=== PATIENT | male | born 1985 | race Caucasian/White ===

== ENCOUNTER 2020-11-15 18:54 | Emergency (ER) | payer OTHER, SELFPAY ==
--- NOTE | ~2020-11-15 | XR_ITS ---
EXAMINATION: XR ANKLE, LEFT CLINICAL INFORMATION: Swelling COMPARISON: None TECHNIQUE: AP, lateral, and mortise views of the left ankle. FINDINGS: No acute fracture or dislocation. Ankle mortise is congruent. No ankle joint effusion. There is lateral soft tissue swelling. XR/XR ankle LT min 3V IMPRESSION: Lateral soft tissue swelling. No fracture or malalignment.
[2020-11-15 18:56] VITALS: BP 136/86; PULSE 99; RESP 16; TEMP 37.1; O2SAT 98; BMI 19.2
[2020-11-15 20:36] VITALS: BP 115/71; PULSE 92; RESP 18; TEMP 37; O2SAT 96
[2020-11-15 20:40] LABS: MANUAL DIFF FLAG NO
[2020-11-15 20:45] LABS: Basophils Percent Auto 0.3 % (0-2); Eosinophils Absolute Auto 0.1 X10*3/uL (0.0-0.4); Eosinophils Percent Auto 1.9 % (0-4); Hemoglobin 12.8 g/dl (14.0-18.0); Imm Gran Abs Auto 0.02 X10*3/uL (0.00-0.03); Imm Gran Pct Auto 0.3 % (0.0-0.4); Lymphocytes Absolute Auto 1.5 X10*3/uL (1.2-4.9); Lymphocytes Percent Auto 23.5 % (20-40); Mean Corpuscular HGB Conc 33.7 g/dl (31.0-36.0); Mean Corpuscular Hemoglobin 30.6 pg (27.0-33.0); Mean Corpuscular Volume 90.9 fL (80-98); Monocytes Absolute Auto 0.7 X10*3/uL (0.1-1.2); Monocytes Percent Auto 10.7 % (2-11); Neutrophils Percent Auto 63.3 % (45-73); Red Blood Count 4.18 X10*6/uL (4.60-5.80); Red Cell Distribution Width 14.7 % (11.0-16.0); White Blood Count 6.4 X10*3/uL (4.8-10.8)
[2020-11-15 20:46] LABS: Platelet Count 90 X10*3/uL (160-400)
[2020-11-15 21:02] LABS: Anion Gap 11 (12-20); Blood Urea Nitrogen 8 mg/dL (9-16); Calcium 8.9 mg/dL (8.4-10.2); Carbon Dioxide 29 mmol/L (22-29); Chloride 106 mmol/L (96-108); Creatinine Clr Calc Pharmacy 100.4; Estimated Glomerular Filt Rate > 60; Glucose Random 101 mg/dL (60-115); Potassium 3.9 mmol/L (3.3-5.1); Sodium 142 mmol/L (135-145)
[2020-11-15] MEDS: Amoxicillin/Potassium Clav 875 MG TABLET PO (22:54)
--- NOTE | 2020-11-15 23:03 | ED_ITS ---
HPI - Extremity Injury (Lower) General Chief Complaint: Extremity Injury, Lower Stated Complaint: leg swelling Time Seen by Provider: 11/15/20 21:40 Source: patient Mode of arrival: ambulatory Limitations: no limitations History of Present Illness HPI Narrative: 35-year-old male presents with redness and swelling to the left lower ankle after being stung by a bee. 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 MD complaint: ankle injury Onset (ago): day(s) (To) Type of Injury: other (Insect sting) Place: street/outdoors Severity: moderate Severity scale (1-10): 7 Relieving factors: nothing Exacerbating factors: weight bearing, movement and palpation Associated symptoms: swelling Other symptoms: none Related Data Previous Rx's Medication Instructions Recorded amoxicillin 875 mg-potassium 1 tab PO Q12H 10 Days #20 tab 11/15/20 clavulanate 125 mg tablet (Augmentin) doxycycline monohydrate 100 mg 100 mg PO BID 10 Days #20 tab 11/15/20 tablet naproxen 500 mg tablet 500 mg PO BID PRN #60 tab 11/15/20 Allergies Allergy/AdvReac Type Severity Reaction Status Date / Time No Known Allergies Allergy Unverified 11/23/19 15:26 [No Known Allergies*] Review of Systems Review of Systems: Constitutional: No Fever, No Chills ENT/Mouth: No Ear Pain, No Hoarseness, No sore throat Eyes: No Eye Pain, No Swelling, No Redness, No Foreign Body Cardiovascular: No Chest Pain, No SOB Respiratory: No Cough, No Dyspnea Gastrointestinal: No Nausea, No Vomiting, No Diarrhea, No abdominal Pain Genitourinary: No Dysuria, No Hematuria Musculoskeletal: positive left ankle swelling, erythema and pain, No Myalgias, No Joint Swelling Skin: No Skin lacerations, No rash Neuro: No Weakness, No Numbness, No Paresthesias, No Loss of Consciousness, No Dizziness, No Headache Psych: No Anxiety/Panic, No Depression Heme/Lymph: no easy bruising, no Lymphadenopathy Endocrine: No Polyuria, No Polydipsia Yes all other systems are reviewed and are negative [facility], [facility] Past Medical History Attestation statement: The following information was validated with the patient. Source: old records reviewed Social History Social History Advance Directives: No Advance Directives Information Provided: Yes Physical Exam Vital Signs: Vital Signs: Last Vital Signs Temp 98.6 F 11/15/20 20:36 Pulse 92 11/15/20 20:36 Resp 18 11/15/20 20:36 BP 115/71 11/15/20 20:36 Pulse Ox 96 11/15/20 20:36 Body Mass Index 19.2 Appearance: Alert. Oriented X3. No acute distress. Eyes: Pupils equal, round and reactive to light. Sclera nonicteric. ENT: Pharynx normal. Moist mucous membranes. Neck: Normal inspection. Neck supple. CVS: Tachycardic heart rate and rhythm. Pulses normal. Respiratory: No respiratory distress. Breath sounds normal. Abdomen: Soft and nontender. Skin: Skin warm and dry. Multiple fresh track ibrahim to bilateral arms. Erythema noted to the left lateral malleolar process. Extremities: Cellulitis noted to left lateral malleolar process with tenderness. Full range of motion, equal pulses and brisk capillary refill to bilateral lower extremities. Neuro: No motor deficit. No sensory deficit. Cranial nerves 2-12 intact. Course Course Course Narrative: 35-year-old male presents with left ankle pain and swelling after being stung by multiple bees. Will order x-rays to rule out bone involvement and labs. Labs indicate H&H of 12.8/38.0, MDM - Extremity Injury (Lower) MDM Narrative Medical decision making narrative: Cellulitis, osteo, Differential Diagnosis Differential diagnosis: Likely ankle sprain and strain and ankle fracture Medical Records Attestation: I reviewed the patient's medical records. Lab Data Attestation: I reviewed the patient's lab results. Result diagrams: 11/15/20 20:35 11/15/20 20:35 Labs: Lab Results 11/15/20 11/15/20 Range/Units 20:35 20:35 WBC 6.4 (4.8-10.8) X10*3/uL RBC 4.18 L (4.60-5.80) X10*6/uL Hgb 12.8 L (14.0-18.0) g/dl Hct 38.0 L (42-52) % MCV 90.9 (80-98) fL MCH 30.6 (27.0-33.0) pg MCHC 33.7 (31.0-36.0) g/dl RDW 14.7 (11.0-16.0) % Plt Count 90 L (160-400) X10*3/uL MPV 10.0 (9.4-12.4) fL Immature Gran % (Auto) 0.3 (0.0-0.4) % Neut % (Auto) 63.3 (45-73) % Lymph % (Auto) 23.5 (20-40) % [place] % (Auto) 10.7 (2-11) % Eos % (Auto) 1.9 (0-4) % Baso % (Auto) 0.3 (0-2) % Lymph # (Auto) 1.5 (1.2-4.9) X10*3/uL [place] # (Auto) 0.7 (0.1-1.2) X10*3/uL Eos # (Auto) 0.1 (0.0-0.4) X10*3/uL Baso # (Auto) 0.0 (0.0-0.2) X10*3/uL Abs Immat Gran (auto) 0.02 (0.00-0.03) X10*3/uL Absolute Neuts (auto) 4.0 (2.0-8.3) X10*3/uL Absolute Nucleated RBC 0.000 (0.0-0.012) X10*3/uL Nucleated RBC % (auto) 0.0 (0.0-0.2) /100WBC Sodium 142 (135-145) mmol/L Potassium 3.9 (3.3-5.1) mmol/L Chloride 106 (96-108) mmol/L Carbon Dioxide 29 (22-29) mmol/L Anion Gap 11 L (12-20) BUN 8 L (9-16) mg/dL Creatinine 0.84 (0.5-1.4) mg/dL Estim Creat Clear Calc 100.4 Estimated GFR > 60 Random Glucose 101 (60-115) mg/dL Calcium 8.9 (8.4-10.2) mg/dL Imaging Data Ankle x-ray: Attestation: I personally reviewed and interpreted this imaging study as follows: Radiologist's impression: EXAMINATION: XR ANKLE, LEFT CLINICAL INFORMATION: Swelling? COMPARISON: None? TECHNIQUE: AP, lateral, and mortise views of the left ankle. FINDINGS: No acute fracture or dislocation. Ankle mortise is congruent. No ankle joint effusion. There is lateral soft tissue swelling.? XR/XR ankle LT min 3V IMPRESSION: Lateral soft tissue swelling. No fracture or malalignment. Discharge Plan Discharge Clinical Impression: Cellulitis Patient Disposition: Home, Self-Care Instructions: Cellulitis (ED) Additional Instructions: You were evaluated for left ankle pain and swelling. Your symptoms are consistent with cellulitis. Please take doxycycline and Augmentin twice a day for the next 10 days. If your symptoms worsen please return to the emergency department as you are at high risk for a bacterial infection called sepsis. Thank you for choosing this emergency department for evaluation. Please follow-up with primary care physician as needed. Return to the emergency department for any new, concerning, or worsening symptoms. Prescriptions: New doxycycline monohydrate 100 mg tablet 100 mg PO BID 10 Days Qty: 20 RF: 0 amoxicillin-pot clavulanate [Augmentin] 875-125 mg tablet 1 tab PO Q12H 10 Days Qty: 20 RF: 0 naproxen 500 mg tablet 500 mg PO BID PRN (Reason: pain) Qty: 60 RF: 0 Interventions: ED Discharge Assessment Last Done: 11/15/20 22:57 Discharge Date/Time: 11/15/20 22:58
--- NOTE | 2020-11-15 23:03 | MHC.CARE ---
CARE Team was asked to met with patient to provide detox/substance use resources. CARE Team provided the patient with substance use resources and CARE Team contact information.
== END 2020-11-15 22:58 | disposition home or self-care (01) ==
PROVIDERS: Emergency Provider Student in an Organized Health Care Education/Training Program; PCP Internal Medicine
DX: L03.116 Cellulitis of left lower limb (principal); M25.572 Pain in left ankle and joints of left foot; R60.0 Localized edema; Z79.899 Other long term (current) drug therapy
CPT/HCPCS: 36415; 73610; 80048; 85025; 99283

== ENCOUNTER 2021-01-02 06:28 | Emergency (ER) | payer OTHER, SELFPAY ==
--- NOTE | ~2021-01-02 | CT_ITS ---
EXAMINATION: CT ANGIOGRAM OF THE CHEST WITH AND WITHOUT CONTRAST (CT PULMONARY ANGIOGRAM FOR PE) CLINICAL INFORMATION: Reason for Exam r/o PE, left CP, high dimmer, hx IVDA COMPARISON: Previous chest x-ray from earlier the same day TECHNIQUE: Prior to contrast administration, noncontrast localization images were obtained. Subsequently, multidetector volumetric imaging was performed from the thoracic inlet to below the diaphragms following the administration of 65 mL Omnipaque 350 intravenous contrast. No contrast reaction reported Sagittal, coronal, and MIP oblique sagittal reformatted images were obtained on the CT workstation, uploaded to PACS, and reviewed. This CT examination was performed using dose optimization techniques as appropriate, variously including the following: *Automated exposure control *Adjustment of mA and/or kV according to patient size (this includes techniques or standardized protocols for targeted exams where dose is matched to indication/reason for exam; i.e. extremities or head) *Use of iterative reconstruction technique Total exam dose-length product 115 mGy-cm FINDINGS: QUALITY OF STUDY/CONTRAST BOLUS: Satisfactory. PULMONARY ARTERIES: No central or segmental pulmonary emboli. THORACIC AORTA: No aneurysm or dissection. LUNG: No focal consolidation, nodules or masses. There is subsegmental atelectasis at the lung bases. PLEURA: No pleural effusion or pneumothorax. MEDIASTINUM: Normal heart size. No pericardial effusion. No hilar or mediastinal lymphadenopathy. No evidence of septal bowing or right heart strain. CHEST WALL/AXILLA: No axillary or internal mammary lymphadenopathy. OSSEOUS STRUCTURES: No acute or suspicious osseous abnormality. Is a radiopaque density seen in the left humeral head. UPPER ABDOMEN: The liver and spleen may be prominent. No reflux of contrast into the hepatic veins to suggest elevated right heart pressures. CT/CT angio chest PE protocol IMPRESSION: No evidence of pulmonary embolism. VTE: negative
--- NOTE | ~2021-01-02 | XR_ITS ---
EXAMINATION: XR CHEST CLINICAL INFORMATION: Pain and swelling, lower ribs. COMPARISON: 10/24/2019 portable chest. TECHNIQUE: Frontal view of the chest was obtained. FINDINGS: No significant abnormality is noted involving the heart, lungs, mediastinum, bony thorax or soft tissues. XR/XR chest 1V IMPRESSION: No acute cardiopulmonary process. No significant osseous abnormality.
[2021-01-02 06:31] VITALS: BP 152/89; PULSE 123; RESP 20; TEMP 37.9; O2SAT 97; BMI 19.2
--- NOTE | 2021-01-02 06:43 | ECG_ITS ---
Test Reason : CHEST PAIN Blood Pressure : / mmHG Vent. Rate : 110 BPM Atrial Rate : 110 BPM P-R Int : 128 ms QRS Dur : 076 ms QT Int : 320 ms P-R-T Axes : 068 -22 019 degrees QTc Int : 433 ms Sinus tachycardia Left axis deviation Borderline ECG Heart rate has decreased T wave inversion no longer evident in Anterior leads Referred By: Maura Garduno Electronically Signed By:OBDULIA QUEZADA MD
--- NOTE | 2021-01-02 06:48 | ED_ITS ---
HPI - General Adult General Chief complaint: Back Pain/Injury Stated complaint: Rib pain Time Seen by Provider: 01/02/21 06:35 Source: patient Mode of arrival: ambulatory Limitations: no limitations History of Present Illness HPI narrative: Patient comes emergency room complaining of left-sided rib pain in the lower aspect. Patient states that approximately 3 days ago, he was leaning over a dumpster trying to grab a can at the bottom of it. Patient heard some cracking in his ribs, since then he has been having pain, has been trying the heel by its own, but pain has been gradually been getting worse. Patient denies any coughing, no fever or chills. No abdominal pain. Patient accepts using IV heroin on a daily basis. Related Data Previous Rx's Medication Instructions Recorded amoxicillin 875 mg-potassium 1 tab PO Q12H 10 Days #20 tab 11/15/20 clavulanate 125 mg tablet (Augmentin) doxycycline monohydrate 100 mg 100 mg PO BID 10 Days #20 tab 11/15/20 tablet naproxen 500 mg tablet 500 mg PO BID PRN #60 tab 11/15/20 ketorolac 10 mg tablet 10 mg PO TID PRN 5 Days #10 tab 01/02/21 Allergies Allergy/AdvReac Type Severity Reaction Status Date / Time No Known Allergies Allergy Verified 01/02/21 06:31 [No Known Allergies*] Review of Systems Review of Systems: Constitutional : No Weight loss, No Fever, No Chills, No Night Sweats, No Fatigue, No Malaise ENT/Mouth : No Hearing loss, No Ear Pain, No Nasal Congestion, No Sinus Pain, No Hoarseness, No sore throat, No Rhinorrhea, No Swallowing Difficulty Eyes: No Eye Pain, No Swelling, No Redness, No Foreign Body, No Discharge, No Vision Changes Cardiovascular : No Chest Pain, No SOB, No Dyspnea on Exertion, No Orthopnea, No Edema, No Palpitations Respiratory : No Cough, No Sputum, No Wheezing, No Smoke Exposure, No Dyspnea Gastrointestinal : No Nausea, No Vomiting, No Diarrhea, No Constipation, No abdominal Pain, No Hematochezia, No Melena Genitourinary : no irregular bleeding, No Dysuria, No Urinary Frequency, No Hematuria, No Urinary Incontinence, No Urgency, No Flank Pain, No Urinary Flow Changes, No Hesitancy Musculoskeletal : Complaining of left-sided lower rib pain Skin : No Skin Lesions, No rash Neuro : No Weakness, No Numbness, No Paresthesias, No Loss of Consciousness, No Dizziness, No Headache Psych : No Anxiety/Panic, No Depression, No SI/HI/AH/VH, No Social Issues, Heme/Lymph: No Bruising, No Bleeding,No Lymphadenopathy Endocrine : No Polyuria, No Polydipsia, No Temperature Intolerance [facility] Past Medical History Medical History IV drug user Social History Social History Advance Directives: No Physical Exam Vital Signs: Vital Signs: Last Vital Signs Temp 98.7 F 01/02/21 07:24 Pulse 95 01/02/21 08:14 Resp 16 01/02/21 08:14 BP 103/56 L 01/02/21 08:14 Pulse Ox 96 01/02/21 08:14 Body Mass Index 19.2 Const: Other: Appearance: Alert. Oriented X3. Crying Eyes: Pupils equal, round and reactive to light. ENT: Pharynx normal. Neck: Normal inspection. Neck supple. No lymph nodes noted. No crepitus CVS: Normal heart rate and rhythm. Pulses normal. Normal S1 and S2 Respiratory: No respiratory distress. Breath sounds normal. No Wheezing. No rales Abdomen: Soft and nontender. No rigidity. No distention. Back: Pain to palpation over the left-sided paraspinal muscles above the lumbar region, no C-spine tenderness. Pain to palpation over the lower ribs on the left lateral/flank side, mild swelling noted Skin: Skin warm and dry. Normal skin color. Normal skin turgor. All skin track ibrahim in both upper extremities, no cellulitis Extremities: No lower extremity edema. No lower extremity edema. No Lacerations. No Rash Neuro: Oriented X 3. No motor deficit. No sensory deficit. Moving all extermities. No slurred speech. Course Course Course Narrative: I discussed the labs and imaging with the patient, white blood cell count elevation likely secondary leukocytosis. Patient did not provide a urine sample. Patient states that he feels better after the IV treatment Medical Decision Making Lab Data Result diagrams: 01/02/21 06:55 01/02/21 06:55 Labs: Lab Results 01/02/21 01/02/21 01/02/21 Range/Units 06:44 06:55 06:55 WBC 14.9 H (4.8-10.8) X10*3/uL RBC 4.21 L (4.60-5.80) X10*6/uL Hgb 12.6 L (14.0-18.0) g/dl Hct 38.5 L (42-52) % MCV 91.4 (80-98) fL MCH 29.9 (27.0-33.0) pg MCHC 32.7 (31.0-36.0) g/dl RDW 14.6 (11.0-16.0) % Plt Count 96 L (160-400) X10*3/uL MPV 9.7 (9.4-12.4) fL Immature Gran % (Auto) 0.8 H (0.0-0.4) % Neut % (Auto) 83.1 H (45-73) % Lymph % (Auto) 8.1 L (20-40) % [place] % (Auto) 7.6 (2-11) % Eos % (Auto) 0.1 (0-4) % Baso % (Auto) 0.3 (0-2) % Lymph # (Auto) 1.2 (1.2-4.9) X10*3/uL [place] # (Auto) 1.1 (0.1-1.2) X10*3/uL Eos # (Auto) 0.0 (0.0-0.4) X10*3/uL Baso # (Auto) 0.0 (0.0-0.2) X10*3/uL Abs Immat Gran (auto) 0.12 H (0.00-0.03) X10*3/uL Absolute Neuts (auto) 12.4 H (2.0-8.3) X10*3/uL Absolute Nucleated RBC 0.000 (0.0-0.012) X10*3/uL Nucleated RBC % (auto) 0.0 (0.0-0.2) /100WBC PT (9.9-13.0) SEC INR (0.9-1.1) D-Dimer NG/ML Sodium 132 L (135-145) mmol/L Potassium 4.5 (3.3-5.1) mmol/L Chloride 101 (96-108) mmol/L Carbon Dioxide 22 (22-29) mmol/L Anion Gap 14 (12-20) BUN 15 D (9-16) mg/dL Creatinine 0.69 (0.5-1.4) mg/dL Estim Creat Clear Calc 122.2 Estimated GFR > 60 Random Glucose 107 (60-115) mg/dL Lactic Acid (0.5-2.0) mmol/L Calcium 8.8 (8.4-10.2) mg/dL Total Bilirubin 1.0 (0.0-1.0) mg/dL Direct Bilirubin 0.4 (0.0-0.5) mg/dL AST 41 H (5-37) U/L ALT 27 (0-40) U/L Alkaline Phosphatase 51 (39-117) U/L Total Protein 7.6 (6.5-8.0) g/dL Albumin 3.9 (3.5-5.0) g/dL COVID-19 (TAMRA) Negative (Negative) COVID-19 Clin Com See Note 01/02/21 01/02/21 Range/Units 06:57 06:57 WBC (4.8-10.8) X10*3/uL RBC (4.60-5.80) X10*6/uL Hgb (14.0-18.0) g/dl Hct (42-52) % MCV (80-98) fL MCH (27.0-33.0) pg MCHC (31.0-36.0) g/dl RDW (11.0-16.0) % Plt Count (160-400) X10*3/uL MPV (9.4-12.4) fL Immature Gran % (Auto) (0.0-0.4) % Neut % (Auto) (45-73) % Lymph % (Auto) (20-40) % [place] % (Auto) (2-11) % Eos % (Auto) (0-4) % Baso % (Auto) (0-2) % Lymph # (Auto) (1.2-4.9) X10*3/uL [place] # (Auto) (0.1-1.2) X10*3/uL Eos # (Auto) (0.0-0.4) X10*3/uL Baso # (Auto) (0.0-0.2) X10*3/uL Abs Immat Gran (auto) (0.00-0.03) X10*3/uL Absolute Neuts (auto) (2.0-8.3) X10*3/uL Absolute Nucleated RBC (0.0-0.012) X10*3/uL Nucleated RBC % (auto) (0.0-0.2) /100WBC PT 14.1 H (9.9-13.0) SEC INR 1.2 H (0.9-1.1) D-Dimer 1924 NG/ML Sodium (135-145) mmol/L Potassium (3.3-5.1) mmol/L Chloride (96-108) mmol/L Carbon Dioxide (22-29) mmol/L Anion Gap (12-20) BUN (9-16) mg/dL Creatinine (0.5-1.4) mg/dL Estim Creat Clear Calc Estimated GFR Random Glucose (60-115) mg/dL Lactic Acid 1.2 (0.5-2.0) mmol/L Calcium (8.4-10.2) mg/dL Total Bilirubin (0.0-1.0) mg/dL Direct Bilirubin (0.0-0.5) mg/dL AST (5-37) U/L ALT (0-40) U/L Alkaline Phosphatase (39-117) U/L Total Protein (6.5-8.0) g/dL Albumin (3.5-5.0) g/dL COVID-19 (TAMRA) (Negative) COVID-19 Clin Com Discharge Plan Discharge Clinical Impression: Acute costochondritis Patient Disposition: Home, Self-Care Instructions: Costochondritis (ED) Additional Instructions: Please follow-up with your primary care physician tomorrow. If you have any w orsening or new symptoms, please return to the emergency room or call 911 Prescriptions: New ketorolac 10 mg tablet 10 mg PO TID PRN (Reason: pain) 5 Days Qty: 10 RF: 0 No Action doxycycline monohydrate 100 mg tablet 100 mg PO BID 10 Days Qty: 20 RF: 0 amoxicillin-pot clavulanate [Augmentin] 875-125 mg tablet 1 tab PO Q12H 10 Days Qty: 20 RF: 0 naproxen 500 mg tablet 500 mg PO BID PRN (Reason: pain) Qty: 60 RF: 0
[2021-01-02 07:03] LABS: MANUAL DIFF FLAG NO
[2021-01-02 07:09] LABS: Basophils Percent Auto 0.3 % (0-2); Eosinophils Percent Auto 0.1 % (0-4); Hematocrit 38.5 % (42-52); Hemoglobin 12.6 g/dl (14.0-18.0); Imm Gran Abs Auto 0.12 X10*3/uL (0.00-0.03); Imm Gran Pct Auto 0.8 % (0.0-0.4); Lymphocytes Absolute Auto 1.2 X10*3/uL (1.2-4.9); Lymphocytes Percent Auto 8.1 % (20-40); Mean Corpuscular HGB Conc 32.7 g/dl (31.0-36.0); Mean Corpuscular Hemoglobin 29.9 pg (27.0-33.0); Mean Corpuscular Volume 91.4 fL (80-98); Mean Platelet Volume 9.7 fL (9.4-12.4); Monocytes Absolute Auto 1.1 X10*3/uL (0.1-1.2); Monocytes Percent Auto 7.6 % (2-11); Neutrophils Absolute Auto 12.4 X10*3/uL (2.0-8.3); Neutrophils Percent Auto 83.1 % (45-73); Red Blood Count 4.21 X10*6/uL (4.60-5.80); Red Cell Distribution Width 14.6 % (11.0-16.0); White Blood Count 14.9 X10*3/uL (4.8-10.8)
[2021-01-02 07:11] LABS: COVID-19 Test Negative (Negative); IDNOW Serial# 9DD0AD1C
[2021-01-02 07:11] LABS: INTERNATIONAL NORM RATIO 1.2 (0.9-1.1); Prothrombin Time 14.1 SEC (9.9-13.0)
[2021-01-02] MEDS: 0.9 % Sodium Chloride 1,000 ML 999 ML IVCONT (07:11)
[2021-01-02] MEDS: Ketorolac Tromethamine 15 MG/ML VIAL 30 MG IVPUSH (07:11)
[2021-01-02] MEDS: Acetaminophen 325 MG TABLET 650 MG PO (07:12)
[2021-01-02] MEDS: ondansetron HCL 4 MG/2 ML VIAL IVPUSH (07:12)
[2021-01-02 07:13] LABS: Lactic Acid 1.2 mmol/L (0.5-2.0)
[2021-01-02 07:14] LABS: Platelet Count 96 X10*3/uL (160-400)
[2021-01-02 07:21] LABS: Alanine Aminotransferase 27 U/L (0-40); Albumin Level 3.9 g/dL (3.5-5.0); Alkaline Phosphatase 51 U/L (39-117); Anion Gap 14 (12-20); Aspartate Amino Transferase 41 U/L (5-37); Bilirubin Direct 0.4 mg/dL (0.0-0.5); Blood Urea Nitrogen 15 mg/dL (9-16); Calcium 8.8 mg/dL (8.4-10.2); Carbon Dioxide 22 mmol/L (22-29); Chloride 101 mmol/L (96-108); Creatinine Clr Calc Pharmacy 122.2; Estimated Glomerular Filt Rate > 60; Glucose Random 107 mg/dL (60-115); Potassium 4.5 mmol/L (3.3-5.1); Sodium 132 mmol/L (135-145); Total Protein 7.6 g/dL (6.5-8.0)
[2021-01-02 07:24] VITALS: BP 119/73; PULSE 107; RESP 17; TEMP 37.1; O2SAT 95
[2021-01-02 07:27] LABS: D Dimer 1924 NG/ML
[2021-01-02 08:14] VITALS: BP 103/56; PULSE 95; RESP 16; O2SAT 96
[2021-01-02] MEDS: Morphine Sulfate 2 MG/ML CARTRIDGE IVPUSH (09:12)
[2021-01-02] MEDS: iohexoL 350 MG/ML 100 ML INFUS..BTL IV (09:37)
== END 2021-01-02 10:36 | disposition home or self-care (01) ==
PROVIDERS: Emergency Provider Emergency Medicine; PCP Internal Medicine
DX: M94.0 Chondrocostal junction syndrome [Tietze] (principal); F11.90 Opioid use, unspecified, uncomplicated; D72.829 Elevated white blood cell count, unspecified; Z20.822 Contact with and (suspected) exposure to COVID-19; Z86.14 Personal history of Methicillin resistant Staphylococcus aureus infection
CPT/HCPCS: 36415; 71045; 71275; 80048; 80076; 83605; 85025; 85379; 85610; 87040; 87077; 87186; 87205; 87635; 93005; 96361; 96374; 96375; 99284; 99285; J1885; J2270; J2405; Q9967

== ENCOUNTER 2021-01-03 16:15 | Emergency (ER) | payer OTHER, SELFPAY ==
--- NOTE | 2021-01-03 18:59 | PC.NURSE ---
CALLED PATIENT FOR TRIAGE NO RESPONSE
[2021-01-03 19:00] VITALS: BP 154/78; PULSE 100; RESP 20; TEMP 36.9; O2SAT 97; BMI 19.2
--- NOTE | 2021-01-03 20:33 | ED_ITS ---
HPI - General Adult General Chief complaint: General Medical Stated complaint: RIB PAIN Time Seen by Provider: 01/03/21 20:33 Source: patient Mode of arrival: ambulatory Limitations: no limitations History of Present Illness HPI narrative: 35 years old male came in for evaluation of left-sided rib pain. Patient was seen in the emergency department yesterday for evaluation of the pain, patient was leaning over a dumpster trying to grab garbage from the dumpster. Patient start have pain in the left chest which is been constant for the past 3 days, localized to the left rib area, pain is severe 10/10, worsening by talking or movement or taking a deep breath, nothing relieves the pain. Patient had CTA of the chest in the emergency department yesterday which showed no acute intrathoracic pathology. Related Data Previous Rx's Medication Instructions Recorded amoxicillin 875 mg-potassium 1 tab PO Q12H 10 Days #20 tab 11/15/20 clavulanate 125 mg tablet (Augmentin) doxycycline monohydrate 100 mg 100 mg PO BID 10 Days #20 tab 11/15/20 tablet naproxen 500 mg tablet 500 mg PO BID PRN #60 tab 11/15/20 ketorolac 10 mg tablet 10 mg PO TID PRN 5 Days #10 tab 01/02/21 ibuprofen 800 mg tablet 800 mg PO Q8H PRN #14 tab 01/03/21 Allergies Allergy/AdvReac Type Severity Reaction Status Date / Time No Known Allergies Allergy Verified 01/02/21 06:31 [No Known Allergies*] Review of Systems Review of Systems: All other systems are reviewed and are negative Constitutional: Reports as per HPI and Reports no additional constitutional complaints Eyes: Reports as per HPI and Reports no additional eye complaints Reports system reviewed and no additional complaints, except as documented Cardiovascular: Reports as per HPI and Reports no additional cardiovascular complaints Respiratory: Reports as per HPI and Reports no additional respiratory complaints Gastrointestinal: Reports as per HPI and Reports no additional gastrointestinal complaints Genitourinary: Reports no additional female genitourinary complaints Musculoskeletal: Reports no additional musculoskeletal complaints Skin/Breast: Reports system reviewed and no additional complaints, except as docu Psychiatric: Reports no additional psychiatric complaints Endocrine: Reports no additional endocrine complaints Hematologic/Lymphatic: Reports no additional hematologic/lymphatic complaints Allergic/Immunologic: Reports no additional allergic/immunologic complaints Reports system reviewed and no additional complaints, except as documented and Reports Abnormal speech present PMFSH Past Medical History Medical History IV drug user Social History Social History Alcohol intake: unknown Patient Tobacco Use Status: Tobacco use Unknown Use of substances other than those prescribed or required for medical reasons: Unknown Advance Directives: No Advance Directives Information Provided: No Physical Exam Vital Signs: Vital Signs: Last Vital Signs Temp 100.3 F 01/04/21 00:00 Pulse 98 01/04/21 00:00 Resp 16 01/04/21 00:00 BP 128/67 01/04/21 00:00 Pulse Ox 94 01/04/21 00:00 Body Mass Index 19.2 Vital signs have been reviewed as appeared to be correct. Blood pressure normal. Heart rate normal. Respiration rate normal. Temperature normal. Oxygen saturation normal. Appearance: Alert. Oriented X3. No acute distress. Head: Normal external exam. Normocephalic. Atraumatic. No Felipe signs noted. No raccoon eyes noted Eyes: PERRLA. EOMI. Conjunctiva and sclera normal. Eyelids normal. ENT: TM's Normal. Pharynx normal. Uvula midline. Moist mucous membranes. No trismus noted. No drooling noted. No muffled voice noted. Neck: Normal inspection. Neck supple. FROM. No adenopathy. Thyroid Normal. No meningeal signs. No neck mass noted. CVS: Normal heart rate and rhythm. Heart sound normal. No murmurs noted. Pulses normal throughout. Respiratory: No respiratory distress. Painless inspiration. Breath sounds normal. No wheezes/rales/rhonchi noted. Chest tenderness to touch on the left lower chest, no step-off, no deformity. No accessory muscle usage noted or decreased air movement noted. Abdomen: Soft and nontender. Bowel sounds normal in all 4 quadrants. No dis tention noted. No organomegaly noted. No visible injury noted. Back: No CVA tenderness. Full range of motion noted. Skin: Skin warm and dry. Normal skin color. Normal skin turgor. No rashes/les ions/lacerations noted. Extremities: No lower extremity edema. Extremities exhibit normal range of motion. Extremities nontender. Neuro: Oriented X 3. Cranial nerve exam: II-XII are grossly intact No motor deficit. No sensory deficit. Reflexes normal. Course Course Course Narrative: Assessment and plan. [age] year old male came in was left-sided chest pain and contusion after leaning over a dumpster 3 days ago, patient had full evaluation yesterday read the ED patient had x-ray/. Patient is here for worsening a of the chest pain. Medical Decision Making Medical Records Medical records reviewed: Yes I reviewed the patient's medical records. Discharge Plan Discharge Clinical Impression: Chest wall contusion Patient Disposition: Home, Self-Care Instructions: Contusion in Adults (ED) Prescriptions: New ibuprofen 800 mg tablet 800 mg PO Q8H PRN (Reason: pain) Qty: 14 RF: 0 No Action doxycycline monohydrate 100 mg tablet 100 mg PO BID 10 Days Qty: 20 RF: 0 amoxicillin-pot clavulanate [Augmentin] 875-125 mg tablet 1 tab PO Q12H 10 Days Qty: 20 RF: 0 naproxen 500 mg tablet 500 mg PO BID PRN (Reason: pain) Qty: 60 RF: 0 ketorolac 10 mg tablet 10 mg PO TID PRN (Reason: pain) 5 Days Qty: 10 RF: 0 Referrals: Alberto Cole MD [Primary Care Provider] - 2 days Interventions: ED Discharge Assessment Last Done: 01/04/21 00:54
[2021-01-03 22:31] VITALS: BP 136/66; PULSE 111; RESP 16; O2SAT 94
[2021-01-03] MEDS: Ibuprofen 600 MG TABLET PO (22:53)
[2021-01-03] MEDS: oxyCODONE HCl Immed Release 5 MG TABLET PO (22:54)
[2021-01-03 22:55] VITALS: TEMP 37.9
[2021-01-04] VITALS: BP 128/67; PULSE 98; RESP 16; TEMP 37.9; O2SAT 94
--- NOTE | 2021-01-04 01:01 | PC.NURSE ---
Patient states he is unable to walk, do anything and he is homeless and if he gets discharged he will end up dying because he cant' fend for himself. MD informed. Patient states he is in excruciating pain. MD went to speak with patient. Patient had a CTA yesterday which showed no intrathorasic pathology. Patient given pain medication with effect.
== END 2021-01-04 00:54 | disposition home or self-care (01) ==
PROVIDERS: Emergency Provider Emergency Medicine; PCP Internal Medicine
DX: S20.219A Contusion of unspecified front wall of thorax, initial encounter (principal); X58.XXXA Exposure to other specified factors, initial encounter; Y93.9 Activity, unspecified; Y92.9 Unspecified place or not applicable; Y99.9 Unspecified external cause status; Z59.02 Unsheltered homelessness
CPT/HCPCS: 99283; 99284

== ENCOUNTER 2021-01-15 02:11 | Inpatient (IN) | payer OTHER, SELFPAY ==
[2021-01-15] VITALS (9 sets, daily range): BP systolic 115–151; BP diastolic 60–94; PULSE 89–98; RESP 14–18; TEMP 36.4–37.3; O2SAT 96–99; BMI 19.2
--- NOTE | ~2021-01-15 | US_ITS ---
EXAMINATION: US ABDOMEN LIMITED CLINICAL INFORMATION: Ascites.. COMPARISON: Previous CT of the abdomen and pelvis and paracentesis 01/15/2021 TECHNIQUE: Limited 4 quadrant abdominal ultrasound FINDINGS: There is a moderate amount of ascites. This appears complex with some septations seen in the right upper quadrant. US/US abdomen limited IMPRESSION: Moderate amount of ascites.
--- NOTE | ~2021-01-15 | CT_ITS ---
EXAMINATION: CT CHEST WITHOUT CONTRAST CLINICAL INFORMATION: Septic emboli. COMPARISON: Chest CT from 01/02/2021. Abdomen CT from 01/15/2021. TECHNIQUE: Multidetector volumetric CT imaging of the chest was done. Axial MIP volume rendering provided. Sagittal and coronal reformatted images were obtained. This CT examination was performed using dose optimization techniques as appropriate, variously including the following: *Automated exposure control *Adjustment of mA and/or kV according to patient size (this includes techniques or standardized protocols for targeted exams where dose is matched to indication/reason for exam; i.e. extremities or head) *Use of iterative reconstruction technique DLP: 231 mGy-cm FINDINGS: LUNGS AND PLEURA: Trachea and central airways are widely patent and normal in caliber. Multiple scattered noncalcified nodular opacities are present in the periphery of both lungs. Also, there are multiple, scattered areas of airspace disease with central lucency/cavitation, some associated with mild peripheral groundglass attenuation and others with central groundglass attenuation (i.e., reverse halo sign). The findings are consistent with septic emboli and multilobar pneumonia. Trace left pleural effusion is present. No pneumothorax. CARDIOVASCULAR: The heart size is normal. Pulmonary arteries and thoracic aorta are normal in caliber. No pericardial effusion. MEDIASTINUM AND LOWER NECK: No mediastinal mass. The esophagus and partially visualized thyroid gland are unremarkable. LYMPHATICS: No pathologic sized no mediastinal or hilar lymph nodes. Interval development of a left axillary lymph node of 1.3 cm short axis dimension. UPPER ABDOMEN: Cirrhotic liver, splenomegaly and ascites. The abdominal findings are better depicted on the CT imaging of the abdomen pelvis from 01/15/2021. SKELETAL AND CHEST WALL: No suspicious bone lesions. There is fluid attenuation projecting anterior to the left glenohumeral joint. This could represent fluid distention of the subscapularis joint recess and/or subcoracoid bursa. There is no soft tissue gas in this area. No erosive changes at the glenohumeral joint. Query if patient has pain at the left shoulder. CT/CT chest wo con IMPRESSION: * Findings consistent with septic embolic disease and multilobar pneumonia. Trace left pleural effusion is present. No pneumothorax. The pulmonary abnormalities are new compared to 01/02/2021. * There is a new finding of fluid attenuation projecting anterior to the left glenohumeral joint, probably within the subcoracoid bursa, and there is left axillary lymphadenopathy. In a patient with history of intravenous drug abuse and septic emboli, the possibility of infection at the left glenohumeral joint and/or bursal space is considered. * Cirrhotic liver, splenomegaly and ascites.
--- NOTE | ~2021-01-15 | XR_ITS ---
EXAMINATION: XR ABDOMEN KUB CLINICAL INDICATION: Pain COMPARISON: 01/15/2021 TECHNIQUE: AP view of the abdomen. FINDINGS: Nonobstructive bowel gas pattern. Scattered gas in the small bowel without abnormal dilatation. Gas and stool in the colon with prominent stool in the left hemicolon. Central positioning of the bowel consistent with known ascites. The lung bases are clear. No suspicious calcification. No acute osseous abnormality. XR/XR KUB IMPRESSION: Normal bowel gas pattern.
--- NOTE | ~2021-01-15 | US_ITS ---
EXAMINATION: ULTRASOUND-GUIDED PARACENTESIS CLINICAL INFORMATION: Ascites. Abdominal pain and fever. Rule out infection. COMPARISON: Previous CT of the abdomen and pelvis from earlier the same day TECHNIQUE: Procedure and risks and benefits including bleeding and infection were discussed with the patient and informed consent was obtained. The right lower quadrant was prepped and draped in the usual sterile fashion. The skin and soft tissues were anesthetized with 1% lidocaine plain. Using a 5 Fr rapid centesis catheter, access to the ascitic fluid was obtained. 1.7 cm of cloudy yellow fluid was removed. Diagnostic specimen was sent. FINDINGS: There is a small to moderate amount of ascites. US/US paracentesis abd w/image IMPRESSION: Ultrasound-guided paracentesis.
--- NOTE | ~2021-01-15 | US_ITS ---
EXAMINATION: US VENOUS ULTRASOUND WITH DOPPLER LOWER EXTREMITY, BILATERAL CLINICAL INFORMATION: Pain and swelling COMPARISON: None TECHNIQUE: Ultrasound of the deep veins is performed from the hip to the calf with compression sonography and color and pulse Doppler assessment. Spectral analysis with color-flow imaging is performed. FINDINGS: RIGHT: There is normal venous compression and respiratory variation and augmented flow. The visualized common femoral vein, superficial femoral vein, profunda femoral vein, popliteal vein, and the trifurcation region shows no evidence of deep venous thrombosis. There is no popliteal fossa cyst. LEFT: There is normal venous compression and respiratory variation and augmented flow. The visualized common femoral vein, superficial femoral vein, profunda femoral vein, popliteal vein, and the trifurcation region shows no evidence of deep venous thrombosis. There is no popliteal fossa cyst. US/US venous duplex LE BI IMPRESSION: No DVT demonstrated in the bilateral lower extremity.
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
--- NOTE | ~2021-01-15 | XR_ITS ---
EXAMINATION: XR ANKLE, RIGHT CLINICAL INFORMATION: Lateral right ankle swelling COMPARISON: None TECHNIQUE: AP, lateral, and mortise views of the right ankle. FINDINGS: No fracture or dislocation. The ankle mortise is congruent. Ankle joint effusion likely present. Circumferential soft tissue swelling. XR/XR ankle RT min 3V IMPRESSION: Soft tissue swelling with probable ankle joint effusion. No osseous abnormality.
--- NOTE | ~2021-01-15 | CT_ITS ---
EXAMINATION: CT ABDOMEN AND PELVIS WITHOUT CONTRAST CLINICAL INFORMATION: Left lateral upper abdominal/lower chest wall pain. Confirm abdomen. COMPARISON: 01/02/2021 TECHNIQUE: Multidetector volumetric imaging was performed from the superior aspect of the liver through the pubic symphysis. Sagittal and coronal reformatted images were obtained on the technologist's workstation. This CT examination was performed using dose optimization techniques as appropriate, variously including the following: *Automated exposure control *Adjustment of mA and/or kV according to patient size (this includes techniques or standardized protocols for targeted exams where dose is matched to indication/reason for exam; i.e. extremities or head) *Use of iterative reconstruction technique DLP: 428 mGy-cm FINDINGS: LUNG BASES: There are new bilateral lower lung base opacities. Multifocal consolidation with nodular appearance. There may be early central cavitation. LIVER, GALLBLADDER, AND BILIARY TREE: Cirrhotic morphology of the liver with right lobe atrophy and diffuse nodular Contour. No focal hepatic lesion or biliary ductal dilatation. Stones in the gallbladder lumen. No wall thickening. Moderate volume ascites. PANCREAS: Unremarkable. SPLEEN: The spleen is enlarged measuring 17.5 cm in CC dimension. ADRENAL GLANDS: Unremarkable. KIDNEYS AND URETERS: The kidneys are normal in size, shape, and attenuation. No hydronephrosis, hydroureter, or calculi seen. No perinephric stranding. BLADDER: Unremarkable. GASTROINTESTINAL TRACT: Decompressed stomach. Normal caliber small bowel. No obstruction. No colonic wall thickening seen. Normal appendix. No free air. ABDOMINAL WALL: There is abnormal appearance along the left abdominal wall. This has the appearance of a collection with mixed internal attenuation, suggestive of hematoma. This measures 16.6 x 5.6 cm in transaxial dimension. This extends 14 cm in CC dimension. LYMPH NODES: Normal. VASCULAR: Normal caliber aorta. Varices of the upper abdomen noted. PELVIC VISCERA: The prostate and seminal vesicles are unremarkable. OSSEOUS STRUCTURES: No acute or suspicious osseous abnormality. CT/CT abdomen pelvis wo con IMPRESSION: 1. Cirrhotic liver with moderate volume ascites. Separate loculation of fluid along the left abdominal wall with mixed internal attenuation, concerning for hematoma. 2. New appearance of multifocal consolidative nodular opacities at both lung bases, likely with early cavitation. Given the previous clinical history this may represent septic emboli. This critical result was discussed with Robin Mercedes MD by telephone at 01/15/2021 5:49 AM and it was ascertained that the content and urgency of the report was understood at the time of direct communication.
--- NOTE | 2021-01-15 02:23 | PC.NURSE ---
The pt presents to the ED via EMS alert and oriented x 3 for evaluation of B/L ankle pain, B/L knee pain L>R, and B/L hand/wrist pain. Pt states he has a history significant for IVDA and injects into his hands/wrists regularly. he appears thin, disheveled, in no apparent distress. R and L ankles appears mildly swollen, non-pitting. The pt denies any injury. Respirations are non-labored, skin cool to the touch, he makes eye contact with staff and is calm and cooperative. Pt is homelss.
--- NOTE | 2021-01-15 02:38 | PC.NURSE ---
Pt has been changed out of his street clothes and all of his clothing and belongings have been bagged and turned over to security due to potential for the presence of drugs. Pt aware of this, verbalizes an understanding. Of note: the pedal edema that I previously documented as non-pitting is, in fact, pitting.
--- NOTE | 2021-01-15 02:44 | ED.SKABFB ---
HPI - Skin/Abscess/Foreign Bdy General Chief complaint: General Medical Stated complaint: swollen Time Seen by Provider: 01/15/21 02:26 Source: patient Mode of arrival: EMS Limitations: no limitations History of Present Illness MD complaint: other (red swollen hands/ankle) Onset (ago): day(s) (4) Location: L hand, R hand, L foot and R foot Severity: moderate Quality: aching Pain Consistency: constant Relieving factors: none Exacerbating factors: movement Context: IVDA and other (patient also was seen on 01/02 found to have MRSA blood cultures does not have a phone could not get a hold of him) Associated symptoms: chills, malaise and arthralgias Treatments prior to arrival: none Related Data Previous Rx's Medication Instructions Recorded amoxicillin 875 mg-potassium 1 tab PO Q12H 10 Days #20 tab 11/15/20 clavulanate 125 mg tablet (Augmentin) doxycycline monohydrate 100 mg 100 mg PO BID 10 Days #20 tab 11/15/20 tablet naproxen 500 mg tablet 500 mg PO BID PRN #60 tab 11/15/20 ketorolac 10 mg tablet 10 mg PO TID PRN 5 Days #10 tab 01/02/21 ibuprofen 800 mg tablet 800 mg PO Q8H PRN #14 tab 01/03/21 oxycodone-acetaminophen 5 mg-325 1 tab PO TID PRN #10 tab 01/04/21 mg tablet (Percocet) Allergies Allergy/AdvReac Type Severity Reaction Status Date / Time No Known Allergies Allergy Verified 01/02/21 06:31 [No Known Allergies*] Review of Systems Review of Systems: Constitutional : No Fever, pos Chills ENT/Mouth : No sore throat, No Rhinorrhea Eyes: No Eye Pain, No Swelling, No Redness Cardiovascular : No Chest Pain, No SOB Respiratory : No Cough, No Sputum Gastrointestinal : No Nausea, No Vomiting, No Diarrhea, No abdominal Pain Genitourinary : No Dysuria, No Hematuria Musculoskeletal : pos joint pain, No Myalgias, pos Joint Swelling Skin : No Skin Lesions, positive skin rash Neuro : No Weakness, No Numbness, No Headache Psych : No Anxiety, No Depression Heme/Lymph: No Bruising, No Bleeding,No Lymphadenopathy Endocrine : No Polyuria, No Polydipsia All other systems reviewed and are negative PMFSH Past Medical History Medical History IV drug user Social History Social History (Updated 01/15/21 @ 03:20 by Danita Franco DO) Alcohol intake: unknown Patient Tobacco Use Status: Tobacco use Unknown Substance Use Type: Heroin and IV Drugs Advance Directives: No Advance Directives Information Provided: Yes Physical Exam Vital Signs: Vital Signs: Last Vital Signs Temp 97.5 F 01/15/21 02:21 Pulse 93 01/15/21 02:21 Resp 16 01/15/21 02:21 BP 139/80 01/15/21 02:21 Pulse Ox 99 01/15/21 02:21 Body Mass Index 19.2 Appearance: Alert. Oriented X3. No acute distress. Anxious, disheveled Eyes: Pupils equal, round and reactive to light. ENT: Pharynx dry MM Neck: Normal inspection. Neck supple. CVS: Normal heart rate and rhythm. Pulses normal. Respiratory: No respiratory distress. Breath sounds normal. Abdomen: Soft and nontender. Skin: Skin warm and dry. Normal skin color. erythema and warmth to dorsum of hands but no abscess, R foot medial aspect erythema and warmth - swelling on foot /ankle into leg but full ROM of ankle and the ankle itself is not hot or red or touch, L foot erythema on medial aspect mild swelling but less than R side, full ROM of L ankle Extremities: No lower extremity edema. No calf ttp Neuro: Oriented X 3. No motor deficit. No sensory deficit. Course Course Course Narrative: 353am hospitalist called for admission MDM - Skin/Abscess/Foreign Bdy MDM Narrative Medical decision making narrative: 35 yo male with hx of IVDA comes in with c/o bilateral hand and foot pain with LE swelling - concerning for cellulitis. Of note he was positive for MRSA on 01/02 blood cultures. He never received treatment - at this time labs, cultures, US for DVT though I suspect this is just cellulitis, IV vancomycin/zosyn. He can range his ankles and the cellulitis itself is mostly at the foot I do not suspect septic joint. He will need admission to the hospital. Lab Data Result diagrams: 01/15/21 02:55 01/15/21 02:55 Labs: Lab Results 01/15/21 01/15/21 01/15/21 Range/Units 02:55 02:55 02:55 WBC 26.1 H (4.8-10.8) X10*3/uL RBC 4.35 L (4.60-5.80) X10*6/uL Hgb 12.6 L (14.0-18.0) g/dl Hct 37.1 L (42.0-52.0) % MCV 85.3 (80.0-98.0) fL MCH 29.0 (27.0-33.0) pg MCHC 34.0 (31.0-36.0) g/dl RDW 14.5 (11.0-16.0) % Plt Count 210 (160-400) X10*3/uL MPV 8.2 L (9.4-12.4) fL Immature Gran % (Auto) Cancelled Neut % (Auto) Cancelled Lymph % (Auto) Cancelled Coleman % (Auto) Cancelled Eos % (Auto) Cancelled Baso % (Auto) Cancelled Lymph # (Auto) Cancelled Coleman # (Auto) Cancelled Eos # (Auto) Cancelled Baso # (Auto) Cancelled Abs Immat Gran (auto) Cancelled Absolute Neuts (auto) Cancelled Absolute Nucleated RBC 0.020 H (0.0-0.012) X10*3/uL Nucleated RBC % (auto) 0.1 (0.0-0.2) /100WBC Neutrophils % (Manual) 73 (45-73) % Band Neutrophils % 17 H (3-5) % Lymphocytes % (Manual) 6 L (20-40) % Atypical Lymphs % (Man) 1 (0-6) % Monocytes % (Manual) 3 (2-11) % Abs Neuts (Manual) 23.5 H (2.0-8.3) X10*3/uL Lymphocytes # (Manual) 1.6 (1.2-4.9) X10*3/uL Atyp Lymphs # (Manual) 0.3 x10*3/uL Monocytes # (Manual) 0.8 (0.1-1.2) X10*3/uL Toxic Granulation PRESENT Platelet Estimate NORMAL (NORMAL) Plt Morphology Comment NORMAL RBC Morphology NORMAL Sodium 127 L (135-145) mmol/L Potassium 3.9 (3.3-5.1) mmol/L Chloride 91 L (96-108) mmol/L Carbon Dioxide 26 (22-29) mmol/L Anion Gap 14 (12-20) BUN 22 H (9-16) mg/dL Creatinine 0.69 (0.5-1.4) mg/dL Estim Creat Clear Calc 122.2 Estimated GFR > 60 Random Glucose 111 (60-115) mg/dL Lactic Acid 1.6 (0.5-2.0) mmol/L Calcium 7.9 L D (8.4-10.2) mg/dL Magnesium 2.0 (1.6-2.6) mg/dL Total Bilirubin 1.5 H (0.0-1.0) mg/dL Direct Bilirubin 1.0 H (0.0-0.5) mg/dL AST 51 H (5-37) U/L ALT 30 (0-40) U/L Alkaline Phosphatase 96 D (39-117) U/L Total Protein 6.5 (6.5-8.0) g/dL Albumin 2.7 L D (3.5-5.0) g/dL COVID-19 (TAMRA) (Negative) COVID-19 Clin Com 01/15/21 Range/Units 02:55 WBC (4.8-10.8) X10*3/uL RBC (4.60-5.80) X10*6/uL Hgb (14.0-18.0) g/dl Hct (42.0-52.0) % MCV (80.0-98.0) fL MCH (27.0-33.0) pg MCHC (31.0-36.0) g/dl RDW (11.0-16.0) % Plt Count (160-400) X10*3/uL MPV (9.4-12.4) fL Immature Gran % (Auto) Neut % (Auto) Lymph % (Auto) Coleman % (Auto) Eos % (Auto) Baso % (Auto) Lymph # (Auto) Coleman # (Auto) Eos # (Auto) Baso # (Auto) Abs Immat Gran (auto) Absolute Neuts (auto) Absolute Nucleated RBC (0.0-0.012) X10*3/uL Nucleated RBC % (auto) (0.0-0.2) /100WBC Neutrophils % (Manual) (45-73) % Band Neutrophils % (3-5) % Lymphocytes % (Manual) (20-40) % Atypical Lymphs % (Man) (0-6) % Monocytes % (Manual) (2-11) % Abs Neuts (Manual) (2.0-8.3) X10*3/uL Lymphocytes # (Manual) (1.2-4.9) X10*3/uL Atyp Lymphs # (Manual) x10*3/uL Monocytes # (Manual) (0.1-1.2) X10*3/uL Toxic Granulation Platelet Estimate (NORMAL) Plt Morphology Comment RBC Morphology Sodium (135-145) mmol/L Potassium (3.3-5.1) mmol/L Chloride (96-108) mmol/L Carbon Dioxide (22-29) mmol/L Anion Gap (12-20) BUN (9-16) mg/dL Creatinine (0.5-1.4) mg/dL Estim Creat Clear Calc Estimated GFR Random Glucose (60-115) mg/dL Lactic Acid (0.5-2.0) mmol/L Calcium (8.4-10.2) mg/dL Magnesium (1.6-2.6) mg/dL Total Bilirubin (0.0-1.0) mg/dL Direct Bilirubin (0.0-0.5) mg/dL AST (5-37) U/L ALT (0-40) U/L Alkaline Phosphatase (39-117) U/L Total Protein (6.5-8.0) g/dL Albumin (3.5-5.0) g/dL COVID-19 (TAMRA) Negative (Negative) COVID-19 Clin Com See Note Procedures EJ/Peripheral Line Neck R: Time Out Performed: Yes Skin Cleansed in Sterile Fashion: Yes Size (gauge): 18 IV Secured and Dressing Applied: Yes Patient Tolerated Procedure: well and no complications Discharge Plan Discharge Clinical Impression: Cellulitis, Bacteremia, Leukocytosis Patient Disposition: Admitted As Inpatient Prescriptions: No Action doxycycline monohydrate 100 mg tablet 100 mg PO BID 10 Days Qty: 20 RF: 0 amoxicillin-pot clavulanate [Augmentin] 875-125 mg tablet 1 tab PO Q12H 10 Days Qty: 20 RF: 0 naproxen 500 mg tablet 500 mg PO BID PRN (Reason: pain) Qty: 60 RF: 0 ketorolac 10 mg tablet 10 mg PO TID PRN (Reason: pain) 5 Days Qty: 10 RF: 0 ibuprofen 800 mg tablet 800 mg PO Q8H PRN (Reason: pain) Qty: 14 RF: 0 oxycodone-acetaminophen [Percocet] 5-325 mg tablet 1 tab PO TID PRN (Reason: pain) Qty: 10 RF: 0
[2021-01-15 03:00] LABS: Hematocrit 37.1 % (42.0-52.0); Hemoglobin 12.6 g/dl (14.0-18.0); Mean Corpuscular Volume 85.3 fL (80.0-98.0); Mean Platelet Volume 8.2 fL (9.4-12.4); NRBC Pct Auto 0.1 /100WBC (0.0-0.2); Platelet Count 210 X10*3/uL (160-400); Red Blood Count 4.35 X10*6/uL (4.60-5.80); Red Cell Distribution Width 14.5 % (11.0-16.0); White Blood Count 26.1 X10*3/uL (4.8-10.8)
[2021-01-15 03:11] LABS: Lactic Acid 1.6 mmol/L (0.5-2.0)
[2021-01-15 03:19] LABS: Alanine Aminotransferase 30 U/L (0-40); Albumin Level 2.7 g/dL (3.5-5.0); Alkaline Phosphatase 96 U/L (39-117); Anion Gap 14 (12-20); Aspartate Amino Transferase 51 U/L (5-37); Atypical Lymph Absolute Manual 0.3 x10*3/uL; Atypical Lymphs Percent Manual 1 % (0-6); Band Neutrophils Percent 17 % (3-5); Bilirubin Total 1.5 mg/dL (0.0-1.0); Blood Urea Nitrogen 22 mg/dL (9-16); Calcium 7.9 mg/dL (8.4-10.2); Carbon Dioxide 26 mmol/L (22-29); Chloride 91 mmol/L (96-108); Creatinine Clr Calc Pharmacy 122.2; Estimated Glomerular Filt Rate > 60; Glucose Random 111 mg/dL (60-115); Lymphocytes Absolute Manual 1.6 X10*3/uL (1.2-4.9); Lymphocytes Percent Manual 6 % (20-40); Monocytes Absolute Manual 0.8 X10*3/uL (0.1-1.2); Monocytes Percent Manual 3 % (2-11); Neutrophils Absolute Manual 23.5 X10*3/uL (2.0-8.3); Neutrophils Percent Manual 73 % (45-73); Platelet Estimate NORMAL (NORMAL); Platelet Morphology Comment NORMAL; Potassium 3.9 mmol/L (3.3-5.1); RBC Morphology NORMAL; Sodium 127 mmol/L (135-145); Total Protein 6.5 g/dL (6.5-8.0); Toxic Granulation PRESENT
[2021-01-15] MEDS: oxyCODONE HCl Immed Release 15 MG TABLET PO (03:37)
[2021-01-15 03:41] LABS: COVID-19 Test Negative (Negative)
[2021-01-15] MEDS: Piperacillin Sodium/Tazobactam 3.375 GM in 0.9 % Sodium Chloride 50 ML IV ×4 (03:46→21:24)
[2021-01-15] MEDS: vancomycin HCL 750 MG in 0.9 % Sodium Chloride 250 ML 265 MG IV ×2 (04:31→07:15)
[2021-01-15] MEDS: 0.9 % Sodium Chloride 1,000 ML 999 ML IV (04:32)
--- NOTE | 2021-01-15 04:50 | P.HPHOSP_ITS ---
History of Present Illness Date of Service: 01/15/21 Chief Complaint: Left lateral chest wall pain/ b/l Feet pain 35-year-old male with a past medical history of IV drug abuse presented to the hospital today with a chief complaint of unable to ambulate secondary to pain in the bilateral feet. Patient reports that he was presented to the hospital 3 days ago with a chief complaint of left lateral lower rib chest wall pain; mentioned that he was leaning on to [facility] and felt a crack like sound and since then he has been having pain in the left lateral chest wall; presented to the ER [address] scan done which showed no acute findings; blood cultures were drawn during that visit; and subsequently discharged home. Patient mentions that he continues to take IV heroin; drinks alcohol but not sin ce the pain in the chest wall. Denies tobacco use. Mentioned that his chest wall pain is continued to be worse at also has pain in both the feet limiting his ambulation; mentions that he has generalized body aches; denies any neck pain upper back or lower back pain; denies any specific spine pain. Denies any fall or trauma. Denies any chest pain per se, palpitations, lightheadedness or dizziness. Denies any cough or sputum production. Review of all other systems is negative except mentioned above ER course: Per ER team patient appears to be homeless, living on the streets, uses heroin on a daily basis, on exam noted to have left ankle swollen and erythematous, and a concern for cellulitis; patient's blood cultures from couple days of also grew MRSA and patient was not able to reach prior to coming in today. Patient was given IV vancomycin. Admitted to the hospital for further management [facility] Medical History IV drug user Pertinent family history: Patient did not provide information Social History (Updated 01/15/21 @ 03:20 by Danita Franco DO) Alcohol intake: unknown Patient Tobacco Use Status: Tobacco use Unknown Substance Use Type: Heroin and IV Drugs Advance Directives: No Advance Directives Information Provided: Yes Meds Allergies Allergy/AdvReac Type Severity Reaction Status Date / Time No Known Allergies Allergy Verified 01/02/21 06:31 [No Known Allergies*] Active Medications: Current Medications Pharmacy Consult (Consult Rx Vancomycin Dosing) 1 each MISCELLANE DAILY PRN PRN Reason: Consult order Physical Exam Vital Signs and Narrative: Vital Signs: Last Vital Signs Temp 97.5 F 01/15/21 02:21 Pulse 92 01/15/21 04:15 Resp 14 01/15/21 04:15 BP 137/94 H 01/15/21 04:15 Pulse Ox 99 01/15/21 04:15 Body Mass Index 19.2 Gen: Appears be in mild distress due to pain. breathing comfortably on Room air. HEENT: NCAT, dry mucosa. Pulmonary: coarse breath sounds, fair air entry CVS: Normal S1-S2 Abdomen: BS+, abdomen is firm, mildly tender diffusely; noted erythematous circular area on the left lateral ribcage on the lower part; tender on palpation, reproducible pain Extremities: Warm well perfused; bilateral hands warm tender and hyperemic; mostly on the dorsum of the hands; next left ankle medial side is swollen and erythematous, tender to touch; No specific spinal tenderness noted on palpation; moving neck freely. Neuro: Alert and awake. Moves all extremities equally but limited exam due to pain. Results Labs CBC and Chem 7: 01/15/21 02:55 01/15/21 02:55 Labs: Laboratory Results - last 24 hr 01/15/21 01/15/21 01/15/21 02:55 02:55 02:55 MCV 85.3 MCH 29.0 MCHC 34.0 RDW 14.5 Plt Count 210 MPV 8.2 L Immature Gran % (Auto) Cancelled Neut % (Auto) Cancelled Lymph % (Auto) Cancelled Foard % (Auto) Cancelled Eos % (Auto) Cancelled Baso % (Auto) Cancelled Lymph # (Auto) Cancelled Foard # (Auto) Cancelled Eos # (Auto) Cancelled Baso # (Auto) Cancelled Abs Immat Gran (auto) Cancelled Absolute Neuts (auto) Cancelled Absolute Nucleated RBC 0.020 H Nucleated RBC % (auto) 0.1 Neutrophils % (Manual) 73 Band Neutrophils % 17 H Lymphocytes % (Manual) 6 L Atypical Lymphs % (Man) 1 Monocytes % (Manual) 3 Abs Neuts (Manual) 23.5 H Lymphocytes # (Manual) 1.6 Atyp Lymphs # (Manual) 0.3 Monocytes # (Manual) 0.8 Toxic Granulation PRESENT Platelet Estimate NORMAL Plt Morphology Comment NORMAL RBC Morphology NORMAL Anion Gap 14 Estim Creat Clear Calc 122.2 Estimated GFR > 60 Random Glucose 111 Lactic Acid 1.6 Calcium 7.9 L D Magnesium 2.0 Total Bilirubin 1.5 H Direct Bilirubin 1.0 H AST 51 H ALT 30 Alkaline Phosphatase 96 D Total Protein 6.5 Albumin 2.7 L D COVID-19 (TAMRA) COVID-19 Clin Com 01/15/21 02:55 MCV MCH MCHC RDW Plt Count MPV Immature Gran % (Auto) Neut % (Auto) Lymph % (Auto) Foard % (Auto) Eos % (Auto) Baso % (Auto) Lymph # (Auto) Foard # (Auto) Eos # (Auto) Baso # (Auto) Abs Immat Gran (auto) Absolute Neuts (auto) Absolute Nucleated RBC Nucleated RBC % (auto) Neutrophils % (Manual) Band Neutrophils % Lymphocytes % (Manual) Atypical Lymphs % (Man) Monocytes % (Manual) Abs Neuts (Manual) Lymphocytes # (Manual) Atyp Lymphs # (Manual) Monocytes # (Manual) Toxic Granulation Platelet Estimate Plt Morphology Comment RBC Morphology Anion Gap Estim Creat Clear Calc Estimated GFR Random Glucose Lactic Acid Calcium Magnesium Total Bilirubin Direct Bilirubin AST ALT Alkaline Phosphatase Total Protein Albumin COVID-19 (TAMRA) Negative COVID-19 Clin Com See Note Assessment and Plan (1) Septic pulmonary embolism: Status: Acute (2) Ascites: Status: Acute 35-year-old male with a past medical history of IV drug abuse presented to the hospital today with a chief complaint of unable to ambulate secondary to pain in the bilateral feet. Noted to have cellulitis of the left ankle, bilateral hands, bacteremia; admitted to the hospital for further management. MRSA bacteremia: Blood cultures from 01/02/2021 grew MRSA; Repeat blood c ultures were sent. Will obtain echocardiogram. Continue IV vancomycin. Id consult. Septc Pulmonary Emboli with cavitation: noted on CT abd-> final report pending. c/w IV zosyn. Bilateral hand cellulitis/ankle cellulitis: Ankle x-rays pending. Patient on IV vancomycin/zosyn. Hyponatremia: Likely low solute state. Continue normal saline at 50 cc/hour. Left lateral chest wall pain/upper abdominal pain: CT abdomen pelvis final report pending. LUQ hematoma: per Radiaologist spleen appears big, no rupture; but noted hematoma; GEneral surgery consult New Ascites/Liver cirrhosis: as noted on preliminary CT abd; GI consult. Heroin abuse: Monitor on COWS with protocol. Addiction Medicine consult. Alcohol abuse: Monitor on CIWA protocol History of hep C: Patient has mild chronic transaminitis. Will continue to monitor liver enzymes. Homelessness: [employer] follow-up DVT prophylaxis: Subcu heparin Code status: Full code Off note: Things t Follow up by Day hospitalist once pt care taken over at 7AM on 01/15/21: -Echo result -ID/General surgery/GI inputs -IR consult for diagnostic paracentesis; -Ankle x rays Quality Stroke Does the patient have a stroke diagnosis?: No VTE Prior VTE?: No VTE Risk Level:: Medical - moderate - high VTE Device Contraindication: Treatment Not Indicated VTE Drug Contraindication: N/A - Med Ordered
--- NOTE | 2021-01-15 05:40 | PC.NURSE ---
The pt continues to rest in bed, sleeping but wakes to verbal stimuli at which time he is oriented x 3. No shortness of breath. No chest pain. Will continue to monitor.
[2021-01-15] MEDS: Heparin Sodium,Porcine 5,000 UNIT/ML VIAL 5000 UNIT SUBCUT ×3 (06:16→21:23)
[2021-01-15] MEDS: 0.9 % Sodium Chloride 1,000 ML 50 ML IVCONT (06:30)
--- NOTE | 2021-01-15 07:03 | PHA.PROG ---
Admission Date/Time: January 15, 2021 04:45 Indication: BACTEREMIA Weight in k.967 kg Adjusted body weight in K KG [place] body weight in K.7 KG Obesity Dosing Indication % IBW: Serum Creatinine - Last 168 Hours 01/15/21 02:55 Creatinine 0.69 Estimated CrCl and GFR - Last 168 Hours 01/15/21 02:55 Estim Creat Clear Calc 122.2 Estimated GFR > 60 Vancomycin Loading Dose: 750 MG X 1 GIVEN IN ED , ADDITIONAL 750 MG X 1 ORDERED FOR A TOTAL OF 1500 MG Current Vancomycin Dosing Regimen: 1000 MG Q12H Vancomycin Monitoring using AUC goal of 400 - 600 range with trough as surrogate marker: PREDICTED AUC 438 , PREDICTED TROUGH 12.1 Date and Time for next Vancomycin Level to be drawn: 01/16/21 @1600 Pharmacist Comments on Vancomycin Plan: GAVE ADDITIONAL 750 MG DOSE FOR A TOTAL OF 1500 MG LOAD. Vancomycin dosing will take advantage of [employer] as a clinical decision support tool that uses Bayesian modeling to calculate individual patient's pharmacokinetic parameters and forecast the patient's drug concentration time course with the target goal AUC 24 range of 400 - 600 mg/L/hr.
[2021-01-15] MEDS: NeoMYCIN/Polymyxin/HC Otic Sol BOTTLE 4 DROP EAR-RIGHT (07:16)
[2021-01-15 07:26] LABS: Basophils Absolute Auto 0.1 X10*3/uL (0.0-0.2); Basophils Percent Auto 0.2 % (0-2); Eosinophils Absolute Auto 0.1 X10*3/uL (0.0-0.4); Eosinophils Percent Auto 0.4 % (0-4); Hematocrit 35.3 % (42.0-52.0); Hemoglobin 11.9 g/dl (14.0-18.0); Imm Gran Abs Auto 0.82 X10*3/uL (0.00-0.03); Imm Gran Pct Auto 3.4 % (0.0-0.4); Lymphocytes Absolute Auto 1.7 X10*3/uL (1.2-4.9); Lymphocytes Percent Auto 6.9 % (20-40); MANUAL DIFF FLAG SCAN; Mean Corpuscular HGB Conc 33.7 g/dl (31.0-36.0); Mean Corpuscular Hemoglobin 28.8 pg (27.0-33.0); Mean Corpuscular Volume 85.5 fL (80.0-98.0); Mean Platelet Volume 8.6 fL (9.4-12.4); Monocytes Absolute Auto 0.9 X10*3/uL (0.1-1.2); Monocytes Percent Auto 3.9 % (2-11); Neutrophils Absolute Auto 20.7 x10*3/uL (2.0-8.3); Neutrophils Percent Auto 85.2 % (45-73); Platelet Count 193 X10*3/uL (160-400); Red Blood Count 4.13 X10*6/uL (4.60-5.80); Red Cell Distribution Width 14.6 % (11.0-16.0); SCAN SMEAR FLAG 1; White Blood Count 24.3 X10*3/uL (4.8-10.8)
[2021-01-15 07:46] LABS: Anion Gap 10 (12-20); Blood Urea Nitrogen 19 mg/dL (9-16); Calcium 7.4 mg/dL (8.4-10.2); Carbon Dioxide 27 mmol/L (22-29); Chloride 95 mmol/L (96-108); Creatinine Clr Calc Pharmacy 127.8; Estimated Glomerular Filt Rate > 60; Glucose Random 106 mg/dL (60-115); Potassium 3.5 mmol/L (3.3-5.1); Sodium 128 mmol/L (135-145)
[2021-01-15 08:25] LABS: SLIDE REVIEW VERIFIED
[2021-01-15] MEDS: Famotidine 20 MG TABLET PO ×2 (08:27→21:23)
[2021-01-15] MEDS: Thiamine HCL 100 MG TABLET PO (08:27)
[2021-01-15] MEDS: Multivitamin TABLET 1 TAB PO (08:27)
[2021-01-15] MEDS: Folic Acid 1 MG TABLET PO (08:27)
[2021-01-15] MEDS: HYDROmorphone HCl 0.5 MG/0.5 ML SYRINGE IVPUSH (08:28)
--- NOTE | 2021-01-15 08:51 | P.CONGS_ITS ---
History of Present Illness Consult details Consult date: 01/15/21 Narrative: 35-year-old male with significant history of IV drug abuse, admitted because of pain on both feet. He is currently being treated for cellulitis at this time. He also mention he had fallen on his left chest about 2 days ago. He has been complaining of chest wall pain on this left side since then. He had a CAT scan in the ER showing what appears to be a large hematoma on the abdominal wall on the left flank. Currently, the patient says he just has pain all over his body. Review of Systems Constitutional: Constitutional: Reports body ache(s) and Denies fever(s) Cardiovascular: Cardiovascular: Reports chest pain and Reports dyspnea Respiratory: Respiratory: Reports dyspnea Gastrointestinal: Gastrointestinal: Reports abdominal pain Genitourinary: Genitourinary: Denies difficulty urinating Neurologic: Denies confusion Psychiatric: Psychiatric: Denies confusion PMFSH Past Medical History Medical History Hematoma and contusion IV drug user Social History Social History Household Members: None Housing: Homeless Do you presently have visiting nurse or other home services: No Alcohol intake: unknown Patient Tobacco Use Status: Current someday Tobacco user Tobacco use type: Cigarette e-Cigarette/Vaping Use: Never Used Substance Use Type: Heroin and Marijuana Meds Allergies Allergy/AdvReac Type Severity Reaction Status Date / Time No Known Allergies Allergy Verified 01/02/21 06:31 [No Known Allergies*] Active Medications: Current Medications Clonidine HCl (Clonidine Hcl 0.1 Mg Tablet) 0.1 mg PO BID PRN; Protocol PRN Reason: anxiety/restlessness Famotidine (Famotidine 20 Mg Tablet) 20 mg PO BID [facility] Last Admin: 01/15/21 08:27 Dose: 20 mg Documented by: Folic Acid (Folic Acid 1 Mg Tablet) 1 mg PO DAILY [facility] Stop: 01/18/21 08:59 Last Admin: 01/15/21 08:27 Dose: 1 mg Documented by: Heparin Sodium (Porcine) (Heparin Sodium,Porcine 5,000 Unit/Ml Vial) 5,000 unit SUBCUT Q8H [facility] Last Admin: 01/15/21 06:16 Dose: 5,000 unit Documented by: Hydromorphone HCl (Hydromorphone Hcl 0.5 Mg/0.5 Ml Syringe) 0.5 mg IVPUSH Q4H P RN; Protocol PRN Reason: Breakthrough Pain Last Admin: 01/15/21 08:28 Dose: 0.5 mg Documented by: Sodium Chloride (Ns) 1,000 mls @ 50 mls/hr IVCONT .Q20H [facility] Last Admin: 01/15/21 06:30 Dose: 50 mls/hr Documented by: Piperacillin Sod/Tazobactam (Sod 3.375 gm/ Sodium Chloride) 50 mls @ 100 mls/hr IV Q6H [facility] Vancomycin HCl 1,000 mg/ (Sodium Chloride) 270 mls @ 270 mls/hr IV Q12H [facility] Lorazepam (Lorazepam 1 Mg Tablet) 1 mg PO Q4H PRN PRN Reason: Breakthrough alcohol withdrawa Stop: 01/19/21 05:51 Melatonin (Melatonin 3 Mg Tablet) 6 mg PO BEDTIME PRN PRN Reason: Insomnia Multivitamins/Vitamin C (Multivitamin Tablet) 1 tab PO DAILY [facility] Stop: 01/18/21 08:59 Last Admin: 01/15/21 08:27 Dose: 1 tab Documented by: Oxycodone HCl (Oxycodone Hcl Immed Release 5 Mg Tablet) 5 mg PO Q4H PRN PRN Reason: Pain, Severe (Pain Scale 7-10) Pharmacy Consult (Consult Rx Vancomycin Dosing) 1 each MISCELLANE DAILY PRN PRN Reason: Consult order Senna (Sennosides 8.6 Mg Tablet) 17.2 mg PO BEDTIME PRN PRN Reason: Constipation Sodium Chloride (0.9 % Sodium Chloride Flush 3 Ml Syringe) 3 ml IVFLUSH QSHIFT [facility] Last Admin: 01/15/21 07:18 Dose: Not Given Documented by: Thiamine HCl (Thiamine Hcl 100 Mg Tablet) 100 mg PO DAILY [facility] Stop: 01/18/21 08:59 Last Admin: 01/15/21 08:27 Dose: 100 mg Documented by: Home Medications Medication Instructions Recorded Confirmed Last Taken Type No Known Home Meds 01/15/21 01/15/21 Unknown History Physical Exam Vital Signs: Vital Signs: Last Vital Signs Temp 97.5 F 01/15/21 02:21 Pulse 97 01/15/21 05:39 Resp 14 01/15/21 05:39 BP 122/82 01/15/21 05:39 Pulse Ox 96 01/15/21 05:39 Body Mass Index 19.2 Const: Other: Very drowsy but does not seem to be in any acute distress, not a very good historian General: No confusion Orientation/consciousness: No confusion Chest: Other: Tender on the left chest wall laterally Resp: Effort & Inspection: normal respiratory effort Cardio: Rhythm: regular rhythm GI: Other: Tender all throughout, no guarding or rebound, not distended, no obvious ecchymosis Neuro: General: No confusion Extrem: Other: Redness on both ankles, with edema. He says he is tender on al l his extremities Results Labs Result diagrams: 01/16/21 05:50 01/16/21 05:50 Labs: Abnormal lab results 01/15/21 01/15/21 01/15/21 Range/Units 02:55 02:55 07:19 WBC 26.1 H 24.3 H (4.8-10.8) X10*3/uL RBC 4.35 L 4.13 L (4.60-5.80) X10*6/uL Hgb 12.6 L 11.9 L (14.0-18.0) g/dl Hct 37.1 L 35.3 L (42.0-52.0) % MPV 8.2 L 8.6 L (9.4-12.4) fL Immature Gran % (Auto) 3.4 H (0.0-0.4) % Neut % (Auto) 85.2 H (45-73) % Lymph % (Auto) 6.9 L (20-40) % Abs Immat Gran (auto) 0.82 H (0.00-0.03) X10*3/uL Absolute Neuts (auto) 20.7 H (2.0-8.3) x10*3/uL Absolute Nucleated RBC 0.020 H (0.0-0.012) X10*3/uL Band Neutrophils % 17 H (3-5) % Lymphocytes % (Manual) 6 L (20-40) % Abs Neuts (Manual) 23.5 H (2.0-8.3) X10*3/uL Sodium 127 L (135-145) mmol/L Chloride 91 L (96-108) mmol/L Anion Gap (12-20) BUN 22 H (9-16) mg/dL Calcium 7.9 L D (8.4-10.2) mg/dL Total Bilirubin 1.5 H (0.0-1.0) mg/dL Direct Bilirubin 1.0 H (0.0-0.5) mg/dL AST 51 H (5-37) U/L Albumin 2.7 L D (3.5-5.0) g/dL 01/15/21 Range/Units 07:19 WBC (4.8-10.8) X10*3/uL RBC (4.60-5.80) X10*6/uL Hgb (14.0-18.0) g/dl Hct (42.0-52.0) % MPV (9.4-12.4) fL Immature Gran % (Auto) (0.0-0.4) % Neut % (Auto) (45-73) % Lymph % (Auto) (20-40) % Abs Immat Gran (auto) (0.00-0.03) X10*3/uL Absolute Neuts (auto) (2.0-8.3) x10*3/uL Absolute Nucleated RBC (0.0-0.012) X10*3/uL Band Neutrophils % (3-5) % Lymphocytes % (Manual) (20-40) % Abs Neuts (Manual) (2.0-8.3) X10*3/uL Sodium 128 L (135-145) mmol/L Chloride 95 L (96-108) mmol/L Anion Gap 10 L (12-20) BUN 19 H (9-16) mg/dL Calcium 7.4 L D (8.4-10.2) mg/dL Total Bilirubin (0.0-1.0) mg/dL Direct Bilirubin (0.0-0.5) mg/dL AST (5-37) U/L Albumin (3.5-5.0) g/dL Short CBC 01/15/21 01/15/21 Range/Units 02:55 07:19 WBC 26.1 H 24.3 H (4.8-10.8) X10*3/uL Hgb 12.6 L 11.9 L (14.0-18.0) g/dl Hct 37.1 L 35.3 L (42.0-52.0) % Plt Count 210 193 (160-400) X10*3/uL BMP 01/15/21 01/15/21 02:55 07:19 Sodium 127 L 128 L Potassium 3.9 3.5 Chloride 91 L 95 L Carbon Dioxide 26 27 BUN 22 H 19 H Creatinine 0.69 0.66 Calcium 7.9 L D 7.4 L D Liver Function 01/15/21 Range/Units 02:55 Total Bilirubin 1.5 H (0.0-1.0) mg/dL Direct Bilirubin 1.0 H (0.0-0.5) mg/dL AST 51 H (5-37) U/L ALT 30 (0-40) U/L Alkaline Phosphatase 96 D (39-117) U/L Albumin 2.7 L D (3.5-5.0) g/dL All other labs normal. Assessment and Plan (1) Hematoma and contusion: Status: Acute He has a hematoma on the abdominal wall extending to the lower chest wall on the left. This is a consequence of his recent fall and review of his CT scan suggests he may have a rib fracture as well. He also has chronic liver disease with ascites may have some degree of coagulopathy. His hemoglobin is steady. He does not require any surgical intervention. He will benefit from good pain management. He is also being treated for septic pulmonary embolism. He is at high risk for this in view of his IV drug abuse. He has been started on IV antibiotics. I w ill follow along while he is in the hospital. Procedures Date of Service Date of Service: 01/15/21
--- NOTE | 2021-01-15 10:30 | CA_ITS ---
Transthoracic Echocardiogram Patient (Last, First, Middle): Gopal Rosa J Gender: Male Date of : 1985 Age: 35 Procedure Date: 01/15/2021 Procedure Type: Transthoracic Echocardiogram Location: [facility] Height: 175.26 cm Weight: 58.97 kg BSA: 1.72 m2 Heart Rate: bpm BP: 122 / 82 mmHg Rental Counter Clerk: Referring MD: Robin Mercedes MD Symptoms: MRSA bacteremia Study Quality: Fair ECG Rhythm: Sinus Conclusions: - The left ventricular systolic function is normal. The visually estimated ejection fraction is between 55-60%. - Valves not well visualized, but based on available images, no obvious vegetation noted. Findings Left Ventricle Normal left ventricular cavity size. There is normal left ventricular wall thickness. The left ventricular systolic function is normal. The visually estimated ejection fraction is between 55-60%. There is no evidence of regional wall motion abnormalities. Diastolic function is normal for age. Right Ventricle Normal right ventricular cavity size and systolic function. Atria Both atria are normal in size. Aortic Valve The aortic valve was not well visualized. There is no aortic valve stenosis. There is no aortic valve regurgitation. Mitral Valve The mitral valve appears normal. There is trace mitral valve regurgitation. There is no mitral valve stenosis. Pulmonic Valve The pulmonic valve was not well visualized. Tricuspid Valve The tricuspid valve was not well visualized. There is trace tricuspid valve regurgitation. The pulmonary artery systolic pressure is normal. Great Vessels The aortic annulus is normal in size. Venous The inferior vena cava is normal in size and collapses greater than 50% with inspiration. Pericardium/Pleural There is no evidence of pericardial effusion. Prior Study Comparison No prior study available for comparison. Recommendations, Care & Conclusions Consider a MICHELLE if clinically appropriate. Measurements 2D Linear Measurements IVSd: 0.79 0.6-0.9/0.6-1.0 cm LVIDd: 4.60 3.9-5.3/4.2-5.9 cm LVIDd Index: 2.67 2.4-3.2/2.2-3.1 cm/m2 LVIDs: 2.57 2.0-3.6 cm LVPWd: 0.78 0.7-1.1 cm Ao Root: 3.20 2.1-3.5 cm LA Diam: 3.50 2.7-3.8/3.0-4.0 cm LAIDs Index: 2.03 1.5-2.3 cm/m2 LV Mass: 142.10 67-162/88-224 g LV Mass Index: 82.62 43-95/49-115 g/m2 LVOT Diam: 2.20 3.0+(-)1.3 cm Mitral Valve MV Pk E: 0.83 MV PK A: 0.66 MV Decel Time: 140.00 E/A: 1.30 E'Lateral: 18.10 E'Medial: 9.46 E/E' Med: 8.70 E/E' Lat: 4.60 PHT: 41.00 MVA PHT: 5.37 Decel Gregory: 5.90 Aortic Valve AoV Pk Woo: 1.32 AoV Mn Woo: 0.82 AoV VTI: 0.22 AoV Pk Grad: 7.00 Aov Mn Grad: 3.00 MARIMAR Cont.VTI: 2.74 LVOT LVOT Pk Woo: 0.86 LVOT Mn Woo: 0.55 LVOT VTI: 0.16 LVOT Pk Grad: 3.00 LVOT Mn Grad: 2.00 LVOT Diam: 2.20 LVOT Area: 3.80 Diastolic Function MV Pk E: 0.83 MV Pk A: 0.66 E/A: 1.30 E'Medial: 9.46 E/E' Med: 8.70 E' Laterial: 18.10 E/E' Lat: 4.60 Right Ventricle TAPSE (mm): 34.00 TVS' Woo: 16.00 Tricuspid Valve TR Pk Woo: 2.31 TR Pk Grad: 21.00 Great Vessels Aorta Ao Root-2D: 3.20 2.0-3.7 cm Pulmonary Valve PV Pk Woo: 1.34 Peak PV Grad: 7.00 Updated in Other Vendor System with Status of Final Nikolai Martinez MD electronically signed on 01/15/2021 4:42:10 PM with status of Final
[2021-01-15 11:14] LABS: HBS Num1 > 1000.00 mIU/mL (0-7.99); HBsAGNum1 0.25 S/CO (0.00-0.99); HIV AB/AG Nonreactive (Nonreactive); HIV Num 1 0.07 S/CO (0.00-0.99); Hepatitis B Surface Antigen Negative (Negative); ~Hepatitis B Surface Antibody REACTIVE (Nonreactive)
[2021-01-15 11:37] LABS: INTERNATIONAL NORM RATIO 1.5 (0.9-1.1); Prothrombin Time 17.6 SEC (9.9-13.0)
[2021-01-15 11:41] LABS: HBc Num1 0.19 S/CO (0.00-0.79); Hepatitis B Core Antibody Nonreactive (Nonreactive)
--- NOTE | 2021-01-15 14:52 | HO.ADDICT_ITS ---
History of Present Illness Date of Service: 01/15/2021 Chief Complaint: Bacteremia Reason for Consult: Patient is a 35 year old male with OUD, currenlty medically admitted with cellulitis, new onset cirrhosis, septic emboli and ascites. Patient seen in room 21 of ED. Patient was asleep when this automobile and property underwriter entered the room, but easily awoken. Patient reporting that he is currently using approximately a bundle heroin IV every day, along with cocaine. Reports also drinking about a six-pack beer every day. Denies any history of overdose. Does report history of treatment for opioid use disorder, including methadone and buprenorphine. Unsure when most recent treatment was. States his methadone dose was approximately 55 mg. At time of interview patient denying significant withdrawal symptoms, denied nausea, denied vomiting, denied loose stools, reporting some body aches and malaise. Expressing interest in starting methadone, but stated that he did not feel that he needed it yet. HPI Past Psychiatric History: Not reviewed Review of Systems Constitutional: Reports as per HPI Diagnostics Vital Signs (24Hr): Vital Signs - 24 hr 01/15/21 02:21 01/15/21 04:15 01/15/21 05:39 Temperature 97.5 F Pulse Rate 93 92 97 Respiratory Rate 16 14 14 Blood Pressure 139/80 137/94 H 122/82 Pulse Oximetry 99 99 96 01/15/21 12:21 Temperature Pulse Rate 89 Respiratory Rate 15 Blood Pressure 124/78 Pulse Oximetry 99 Body Mass Index 19.2 Labs Results: 01/15/21 07:19 01/15/21 07:19 Labs: Laboratory Results - last 48 hr 01/15/21 01/15/21 01/15/21 02:55 02:55 02:55 WBC 26.1 H RBC 4.35 L Hgb 12.6 L Hct 37.1 L MCV 85.3 MCH 29.0 MCHC 34.0 RDW 14.5 Plt Count 210 MPV 8.2 L Immature Gran % (Auto) Cancelled Neut % (Auto) Cancelled Lymph % (Auto) Cancelled [place] % (Auto) Cancelled Eos % (Auto) Cancelled Baso % (Auto) Cancelled Lymph # (Auto) Cancelled [place] # (Auto) Cancelled Eos # (Auto) Cancelled Baso # (Auto) Cancelled Abs Immat Gran (auto) Cancelled Absolute Neuts (auto) Cancelled Absolute Nucleated RBC 0.020 H Nucleated RBC % (auto) 0.1 Neutrophils % (Manual) 73 Band Neutrophils % 17 H Lymphocytes % (Manual) 6 L Atypical Lymphs % (Man) 1 Monocytes % (Manual) 3 Abs Neuts (Manual) 23.5 H Lymphocytes # (Manual) 1.6 Atyp Lymphs # (Manual) 0.3 Monocytes # (Manual) 0.8 Toxic Granulation PRESENT Platelet Estimate NORMAL Plt Morphology Comment NORMAL RBC Morphology NORMAL Smear Tech's Comments PT INR Sodium 127 L Potassium 3.9 Chloride 91 L Carbon Dioxide 26 Anion Gap 14 BUN 22 H Creatinine 0.69 Estim Creat Clear Calc 122.2 Estimated GFR > 60 Random Glucose 111 Lactic Acid 1.6 Calcium 7.9 L D Magnesium 2.0 Total Bilirubin 1.5 H Direct Bilirubin 1.0 H AST 51 H ALT 30 Alkaline Phosphatase 96 D Total Protein 6.5 Albumin 2.7 L D COVID-19 ([facility]) COVID-19 Clin Com Hep Bs Antigen Hep Bs Antibody Hep B Core Total Ab HIV 1&2 Ab/P24 Ag 4thGn 01/15/21 01/15/21 01/15/21 02:55 07:19 07:19 WBC 24.3 H RBC 4.13 L Hgb 11.9 L Hct 35.3 L MCV 85.5 MCH 28.8 MCHC 33.7 RDW 14.6 Plt Count 193 MPV 8.6 L Immature Gran % (Auto) 3.4 H Neut % (Auto) 85.2 H Lymph % (Auto) 6.9 L [place] % (Auto) 3.9 Eos % (Auto) 0.4 Baso % (Auto) 0.2 Lymph # (Auto) 1.7 [place] # (Auto) 0.9 Eos # (Auto) 0.1 Baso # (Auto) 0.1 Abs Immat Gran (auto) 0.82 H Absolute Neuts (auto) 20.7 H Absolute Nucleated RBC 0.000 Nucleated RBC % (auto) 0.0 Neutrophils % (Manual) Band Neutrophils % Lymphocytes % (Manual) Atypical Lymphs % (Man) Monocytes % (Manual) Abs Neuts (Manual) Lymphocytes # (Manual) Atyp Lymphs # (Manual) Monocytes # (Manual) Toxic Granulation Platelet Estimate Plt Morphology Comment RBC Morphology Smear Tech's Comments VERIFIED PT INR Sodium 128 L Potassium 3.5 Chloride 95 L Carbon Dioxide 27 Anion Gap 10 L BUN 19 H Creatinine 0.66 Estim Creat Clear Calc 127.8 Estimated GFR > 60 Random Glucose 106 Lactic Acid Calcium 7.4 L D Magnesium Total Bilirubin Direct Bilirubin AST ALT Alkaline Phosphatase Total Protein Albumin COVID-19 ([facility]) Negative COVID-19 Clin Com See Note Hep Bs Antigen Hep Bs Antibody Hep B Core Total Ab HIV 1&2 Ab/P24 Ag 4thGn 01/15/21 01/15/21 10:02 11:17 WBC RBC Hgb Hct MCV MCH MCHC RDW Plt Count MPV Immature Gran % (Auto) Neut % (Auto) Lymph % (Auto) [place] % (Auto) Eos % (Auto) Baso % (Auto) Lymph # (Auto) [place] # (Auto) Eos # (Auto) Baso # (Auto) Abs Immat Gran (auto) Absolute Neuts (auto) Absolute Nucleated RBC Nucleated RBC % (auto) Neutrophils % (Manual) Band Neutrophils % Lymphocytes % (Manual) Atypical Lymphs % (Man) Monocytes % (Manual) Abs Neuts (Manual) Lymphocytes # (Manual) Atyp Lymphs # (Manual) Monocytes # (Manual) Toxic Granulation Platelet Estimate Plt Morphology Comment RBC Morphology Smear Tech's Comments PT 17.6 H INR 1.5 H Sodium Potassium Chloride Carbon Dioxide Anion Gap BUN Creatinine Estim Creat Clear Calc Estimated GFR Random Glucose Lactic Acid Calcium Magnesium Total Bilirubin Direct Bilirubin AST ALT Alkaline Phosphatase Total Protein Albumin COVID-19 ([facility]) COVID-19 Clin Com Hep Bs Antigen Negative Hep Bs Antibody REACTIVE Hep B Core Total Ab Nonreactive HIV 1&2 Ab/P24 Ag 4thGn Nonreactive Imaging Radiology Impressions: ITS Impressions Venous Duplex 01/15/21 02:41 IMPRESSION: No DVT demonstrated in the bilateral lower extremity. Ankle X-Ray 01/15/21 04:40 IMPRESSION: Soft tissue swelling with probable ankle joint effusion. No osseous abnormality. Abdomen/Pelvis CT 01/15/21 05:20 IMPRESSION: 1. Cirrhotic liver with moderate volume ascites. Separate loculation of fluid along the left abdominal wall with mixed internal attenuation, concerning for hematoma. 2. New appearance of multifocal consolidative nodular opacities at both lung bases, likely with early cavitation. Given the previous clinical history this may represent septic emboli. This critical result was discussed with Robin Mercedes MD by telephone at 01/15/2021 5:49 AM and it was ascertained that the content and urgency of the report was understood at the time of direct communication. Chest CT 01/15/21 12:10 IMPRESSION: * Findings consistent with septic embolic disease and multilobar pneumonia. Trace left pleural effusion is present. No pneumothorax. The pulmonary abnormalities are new compared to 01/02/2021. * There is a new finding of fluid attenuation projecting anterior to the left glenohumeral joint, probably within the subcoracoid bursa, and there is left axillary lymphadenopathy. In a patient with history of intravenous drug abuse and septic emboli, the possibility of infection at the left glenohumeral joint and/or bursal space is considered. * Cirrhotic liver, splenomegaly and ascites. Mental Status Exam Mental Status Exam Patient Appearance: Appropriate (Hospital attire) Patient Orientation: Person, Place, Time and Situation Level of Consciousness: Awake and Appropriate Patient Behavior: Appropriate Mood Description: Calm Affect Description: Calm Patient Cognition Impaired: No Ability to Follow Directions: Excellent Speech Pattern: Clear Thought Process: Goal Oriented Thought Content: positive for Goal Oriented Judgement: Fair Medications Medications Current Medications Clonidine HCl (Clonidine Hcl 0.1 Mg Tablet) 0.1 mg PO TID PRN; Protocol PRN Reason: anxiety/restlessness Famotidine (Famotidine 20 Mg Tablet) 20 mg PO BID [facility] Last Admin: 01/15/21 08:27 Dose: 20 mg Documented by: Folic Acid (Folic Acid 1 Mg Tablet) 1 mg PO DAILY [facility] Stop: 01/18/21 08:59 Last Admin: 01/15/21 08:27 Dose: 1 mg Documented by: Heparin Sodium (Porcine) (Heparin Sodium,Porcine 5,000 Unit/Ml Vial) 5,000 unit SUBCUT Q8H [facility] Last Admin: 01/15/21 14:03 Dose: 5,000 unit Documented by: Hydromorphone HCl (Hydromorphone Hcl 0.5 Mg/0.5 Ml Syringe) 0.5 mg IVPUSH Q4H PRN; Protocol PRN Reason: Breakthrough Pain Last Admin: 01/15/21 08:28 Dose: 0.5 mg Documented by: Sodium Chloride (Ns) 1,000 mls @ 50 mls/hr IVCONT .Q20H [facility] Last Admin: 01/15/21 06:30 Dose: 50 mls/hr Documented by: Piperacillin Sod/Tazobactam (Sod 3.375 gm/ Sodium Chloride) 50 mls @ 100 mls/hr IV Q6H [facility] Last Infusion: 01/15/21 09:38 Dose: Infused Documented by: Vancomycin HCl 1,000 mg/ (Sodium Chloride) 270 mls @ 270 mls/hr IV Q12H [facility] Lorazepam (Lorazepam 1 Mg Tablet) 1 mg PO Q4H PRN PRN Reason: Breakthrough alcohol withdrawa Stop: 01/19/21 05:51 Melatonin (Melatonin 3 Mg Tablet) 6 mg PO BEDTIME PRN PRN Reason: Insomnia Multivitamins/Vitamin C (Multivitamin Tablet) 1 tab PO DAILY [facility] Stop: 01/18/21 08:59 Last Admin: 01/15/21 08:27 Dose: 1 tab Documented by: Oxycodone HCl (Oxycodone Hcl Immed Release 5 Mg Tablet) 5 mg PO Q4H PRN PRN Reason: Pain, Severe (Pain Scale 7-10) Pharmacy Consult (Consult Rx Vancomycin Dosing) 1 each MISCELLANE DAILY PRN PRN Reason: Consult order Senna (Sennosides 8.6 Mg Tablet) 17.2 mg PO BEDTIME PRN PRN Reason: Constipation Sodium Chloride (0.9 % Sodium Chloride Flush 3 Ml Syringe) 3 ml IVFLUSH QSHIFT [facility] Last Admin: 01/15/21 07:18 Dose: Not Given Documented by: Thiamine HCl (Thiamine Hcl 100 Mg Tablet) 100 mg PO DAILY [facility] Stop: 01/18/21 08:59 Last Admin: 01/15/21 08:27 Dose: 100 mg Documented by: Allergies Allergies Allergy/AdvReac Type Severity Reaction Status Date / Time No Known Allergies Allergy Verified 01/02/21 06:31 [No Known Allergies*] Assessment & Plan Assessment & Plan (1) Opioid use disorder: Status: Acute Code(s): F11.90 - Opioid use, unspecified, uncomplicated Assessment and Plan: * Continue to monitor for withdrawal symptoms * Methadone 20 mg can be given when patient feels ready * Will follow-up in the morning for additional dosing * Hospitalist aware plan (2) Alcohol use disorder, severe, dependence: Status: Acute Code(s): F10.20 - Alcohol dependence, uncomplicated Assessment and Plan: * Currently on phenobarbital protocol I spent __35____ minutes with the patient and/or on the patient floor today, greater than?50% of which was spent counseling/coordinating care. [facility] Past Medical History Medical History Hematoma and contusion IV drug user Social History Social History Alcohol intake: unknown Patient Tobacco Use Status: Tobacco use Unknown Substance Use Type: Heroin and IV Drugs Advance Directives: No Advance Directives Information Provided: Yes
--- NOTE | 2021-01-15 15:40 | PC.NURSE ---
pt down to IR at this time for paracentesis
--- NOTE | 2021-01-15 15:42 | HO.PM.IMPN ---
Subjective Subjective Date of Service: 01/15/21 Interval History: HCV treated and cured in past No fever Painful feet No cough No dyspnea Knows he has cirrhosis; never had paracentesis in past Uses heroin by injection route Review of Systems Review of Systems: Yes all other systems are reviewed and are negative Physical Exam Vital Signs: Vital Signs: Last Vital Signs Temp 97.5 F 01/15/21 02:21 Pulse 94 01/15/21 15:11 Resp 15 01/15/21 15:11 BP 127/80 01/15/21 15:11 Pulse Ox 98 01/15/21 15:11 Body Mass Index 19.2 Gen: disheveled HEENT: sclera anicteric, moist mucus membranes Neck: supple Lungs: clear to auscultation bilaterally Heart: regular rate and rhythm, no murmurs Abd: soft, non-tender, non-distended Ext: no edema Skin: erythema on ankles Neuro: alert and oriented x3, no focal findings Psych: appropriate affect Objective Data Active Medications Clonidine HCl (Clonidine Hcl 0.1 Mg Tablet) 0.1 mg PO TID PRN; Protocol PRN Reason: anxiety/restlessness Famotidine (Famotidine 20 Mg Tablet) 20 mg PO BID [facility] Last Admin: 01/15/21 08:27 Dose: 20 mg Documented by: BENNETT Folic Acid (Folic Acid 1 Mg Tablet) 1 mg PO DAILY [facility] Stop: 01/18/21 08:59 Last Admin: 01/15/21 08:27 Dose: 1 mg Documented by: BENNETT Heparin Sodium (Porcine) (Heparin Sodium,Porcine 5,000 Unit/Ml Vial) 5,000 unit SUBCUT Q8H [facility] Last Admin: 01/15/21 14:03 Dose: 5,000 unit Documented by: SALVATORE Hydromorphone HCl (Hydromorphone Hcl 0.5 Mg/0.5 Ml Syringe) 0.5 mg IVPUSH Q4H PRN; Protocol PRN Reason: Breakthrough Pain Last Admin: 01/15/21 08:28 Dose: 0.5 mg Documented by: BENNETT Sodium Chloride (Ns) 1,000 mls @ 50 mls/hr IVCONT .Q20H [facility] Last Admin: 01/15/21 06:30 Dose: 50 mls/hr Documented by: NHI Piperacillin Sod/Tazobactam (Sod 3.375 gm/ Sodium Chloride) 50 mls @ 100 mls/hr IV Q6H [facility] Last Admin: 01/15/21 15:10 Dose: 100 mls/hr Documented by: BENNETT Vancomycin HCl 1,000 mg/ (Sodium Chloride) 270 mls @ 270 mls/hr IV Q12H [facility] Lorazepam (Lorazepam 1 Mg Tablet) 1 mg PO Q4H PRN PRN Reason: Breakthrough alcohol withdrawa Stop: 01/19/21 05:51 Melatonin (Melatonin 3 Mg Tablet) 6 mg PO BEDTIME PRN PRN Reason: Insomnia Multivitamins/Vitamin C (Multivitamin Tablet) 1 tab PO DAILY [facility] Stop: 01/18/21 08:59 Last Admin: 01/15/21 08:27 Dose: 1 tab Documented by: BENNETT Oxycodone HCl (Oxycodone Hcl Immed Release 5 Mg Tablet) 5 mg PO Q4H PRN PRN Reason: Pain, Severe (Pain Scale 7-10) Pharmacy Consult (Consult Rx Vancomycin Dosing) 1 each MISCELLANE DAILY PRN PRN Reason: Consult order Senna (Sennosides 8.6 Mg Tablet) 17.2 mg PO BEDTIME PRN PRN Reason: Constipation Sodium Chloride (0.9 % Sodium Chloride Flush 3 Ml Syringe) 3 ml IVFLUSH QSHIFT [facility] Last Admin: 01/15/21 15:11 Dose: Not Given Documented by: BENNETT Non-Admin Reason: IV Running Thiamine HCl (Thiamine Hcl 100 Mg Tablet) 100 mg PO DAILY [facility] Stop: 01/18/21 08:59 Last Admin: 01/15/21 08:27 Dose: 100 mg Documented by: BENNETT Labs CBC & Chem 7: 01/15/21 07:19 01/15/21 07:19 Labs: Laboratory Results - last 24 hr 01/15/21 01/15/21 01/15/21 02:55 02:55 02:55 MCV 85.3 MCH 29.0 MCHC 34.0 RDW 14.5 Plt Count 210 MPV 8.2 L Immature Gran % (Auto) Cancelled Neut % (Auto) Cancelled Lymph % (Auto) Cancelled Storey % (Auto) Cancelled Eos % (Auto) Cancelled Baso % (Auto) Cancelled Lymph # (Auto) Cancelled Storey # (Auto) Cancelled Eos # (Auto) Cancelled Baso # (Auto) Cancelled Abs Immat Gran (auto) Cancelled Absolute Neuts (auto) Cancelled Absolute Nucleated RBC 0.020 H Nucleated RBC % (auto) 0.1 Neutrophils % (Manual) 73 Band Neutrophils % 17 H Lymphocytes % (Manual) 6 L Atypical Lymphs % (Man) 1 Monocytes % (Manual) 3 Abs Neuts (Manual) 23.5 H Lymphocytes # (Manual) 1.6 Atyp Lymphs # (Manual) 0.3 Monocytes # (Manual) 0.8 Toxic Granulation PRESENT Platelet Estimate NORMAL Plt Morphology Comment NORMAL RBC Morphology NORMAL Smear Tech's Comments PT INR Anion Gap 14 Estim Creat Clear Calc 122.2 Estimated GFR > 60 Random Glucose 111 Lactic Acid 1.6 Calcium 7.9 L D Magnesium 2.0 Total Bilirubin 1.5 H Direct Bilirubin 1.0 H AST 51 H ALT 30 Alkaline Phosphatase 96 D Total Protein 6.5 Albumin 2.7 L D COVID-19 (TAMRA) COVID-19 Clin Com Hep Bs Antigen Hep Bs Antibody Hep B Core Total Ab HIV 1&2 Ab/P24 Ag 4thGn 01/15/21 01/15/21 01/15/21 02:55 07:19 07:19 MCV 85.5 MCH 28.8 MCHC 33.7 RDW 14.6 Plt Count 193 MPV 8.6 L Immature Gran % (Auto) 3.4 H Neut % (Auto) 85.2 H Lymph % (Auto) 6.9 L Storey % (Auto) 3.9 Eos % (Auto) 0.4 Baso % (Auto) 0.2 Lymph # (Auto) 1.7 Storey # (Auto) 0.9 Eos # (Auto) 0.1 Baso # (Auto) 0.1 Abs Immat Gran (auto) 0.82 H Absolute Neuts (auto) 20.7 H Absolute Nucleated RBC 0.000 Nucleated RBC % (auto) 0.0 Neutrophils % (Manual) Band Neutrophils % Lymphocytes % (Manual) Atypical Lymphs % (Man) Monocytes % (Manual) Abs Neuts (Manual) Lymphocytes # (Manual) Atyp Lymphs # (Manual) Monocytes # (Manual) Toxic Granulation Platelet Estimate Plt Morphology Comment RBC Morphology Smear Tech's Comments VERIFIED PT INR Anion Gap 10 L Estim Creat Clear Calc 127.8 Estimated GFR > 60 Random Glucose 106 Lactic Acid Calcium 7.4 L D Magnesium Total Bilirubin Direct Bilirubin AST ALT Alkaline Phosphatase Total Protein Albumin COVID-19 (TAMRA) Negative COVID-19 Clin Com See Note Hep Bs Antigen Hep Bs Antibody Hep B Core Total Ab HIV 1&2 Ab/P24 Ag 4thGn 01/15/21 01/15/21 10:02 11:17 MCV MCH MCHC RDW Plt Count MPV Immature Gran % (Auto) Neut % (Auto) Lymph % (Auto) Storey % (Auto) Eos % (Auto) Baso % (Auto) Lymph # (Auto) Storey # (Auto) Eos # (Auto) Baso # (Auto) Abs Immat Gran (auto) Absolute Neuts (auto) Absolute Nucleated RBC Nucleated RBC % (auto) Neutrophils % (Manual) Band Neutrophils % Lymphocytes % (Manual) Atypical Lymphs % (Man) Monocytes % (Manual) Abs Neuts (Manual) Lymphocytes # (Manual) Atyp Lymphs # (Manual) Monocytes # (Manual) Toxic Granulation Platelet Estimate Plt Morphology Comment RBC Morphology Smear Tech's Comments PT 17.6 H INR 1.5 H Anion Gap Estim Creat Clear Calc Estimated GFR Random Glucose Lactic Acid Calcium Magnesium Total Bilirubin Direct Bilirubin AST ALT Alkaline Phosphatase Total Protein Albumin COVID-19 (TAMRA) COVID-19 Clin Com Hep Bs Antigen Negative Hep Bs Antibody REACTIVE Hep B Core Total Ab Nonreactive HIV 1&2 Ab/P24 Ag 4thGn Nonreactive Microbiology Microbiology Results: Microbiology 01/15/21 03:42 Blood Culture - Preliminary Blood - Venous Prelim: GPC Gram Stain only Assessment and Plan (1) Ascites: Status: Acute (2) MRSA bacteremia: Status: Acute Assessment and Plan: hospital d#1 35yo M with ongoing JOSEFINA presenting with bilateral foot pain; recent ED visit during which MRSA bacteremia was diagnosted [01/02/21] but pt could not be contacted to be called back new-onset cirrhosis # MRSA bacteremia - vancomycin, TTE, repeat BCx, ID consult # septic emboli - likely due to MRSA bacteremia # cellulitis of feet [possibly hands as well] - vancomycin + pip/yumiko, follow BCx # L glenohumeral/bursal fluid collection - possibility of septic arthritis- will consult Ortho # hypoNa - likely due to cirrhosis; . fluid restrict to 1500 mL/d. monitor electrlytes # LUQ hematoma - per Surgery , no intervention indicated # new-onset ascites # cirrhosis - diagnostic paracentesis, GI consult # opioid use disorder - addiction medicione consult - clonidine + prn lorazepam - rescreen HCV with viral load. HBV immune + HIV negative # EtOH abuse - prn CIWA # VTE ppx - UFH Quality Stroke Does the patient have a stroke diagnosis?: No VTE Prior VTE?: No VTE Risk Level:: Medical - moderate - high VTE Device Contraindication: Treatment Not Indicated VTE Drug Contraindication: N/A - Med Ordered
[2021-01-15] MEDS: Lidocaine HCl 1 % MPF 5 ML VIAL SUBCUT (16:13)
--- NOTE | 2021-01-15 16:17 | HO.RADPN ---
RADIOLOGY Narrative Narrative: RLQ paracentesis performed using 5 fr catheter. 1L cloudy yellow fluid removed. Diagnostic specimen sent.
[2021-01-15 16:45] LABS: MN% 16.8 %; PMN% 83.2 %
[2021-01-15 16:47] LABS: RBC Peritoneal Fluid 0.003 X10*6/uL
[2021-01-15 16:49] LABS: BF Shift QC OK YES; Man Diluent Bkgrd OK YES
[2021-01-15] MEDS: vancomycin HCL 1,000 MG in 0.9 % Sodium Chloride 250 ML 270 MG IV (17:21)
[2021-01-15 17:35] LABS: Lymphocyte Peritoneal Fl 4 %; Monocytes Peritoneal Fl 9 %; Neutrophils Peritoneal Fluid 86 %
[2021-01-15 17:36] LABS: Other Peritioneal Fl 1 %
--- NOTE | 2021-01-15 20:15 | P.CNGI_ITS ---
History of Present Illness Data of Consult Service Date: 01/15/21 Requesting physician: Denice Palacios Primary Care Provider: Unknown Physician HPI Reason for consult: cirrhosis 35-year-old male with a past medical history of IV drug abuse and hep c treated in the past who I am seeing for assessment Patient came in with body ache and pain, poor mobility but denied back pain, falls or trauma. He had came few days before left chest pain and had BC with pos for MRSA but not contactable due to being homeless, he conts to use IV heroin and occ alcohol but not as much as before. THis admission imaging with cavitating lung lesions, cirrhosis and ascites, He had tap with WCC in fluid 30 K with 86% neutrophils, culture is pending as is peritoneal fluid for albumin to calculate SAAG Review of Systems Neurologic: Denies confusion Psychiatric: Psychiatric: Denies confusion PMFSH Past Medical History Medical History Hematoma and contusion IV drug user Family History Pertinent family history: Patient did not provide information Social History Social History Household Members: None Housing: Homeless Do you presently have visiting nurse or other home services: No Alcohol intake: unknown Patient Tobacco Use Status: Current someday Tobacco user Tobacco use type: Cigarette e-Cigarette/Vaping Use: Never Used Substance Use Type: Heroin and Marijuana Meds Allergies Allergy/AdvReac Type Severity Reaction Status Date / Time No Known Allergies Allergy Verified 01/02/21 06:31 [No Known Allergies*] Active Medications: Current Medications Clonidine HCl (Clonidine Hcl 0.1 Mg Tablet) 0.1 mg PO TID PRN; Protocol PRN Reason: anxiety/restlessness Famotidine (Famotidine 20 Mg Tablet) 20 mg PO BID [facility] Last Admin: 01/15/21 08:27 Dose: 20 mg Documented by: Folic Acid (Folic Acid 1 Mg Tablet) 1 mg PO DAILY [facility] Stop: 01/18/21 08:59 Last Admin: 01/15/21 08:27 Dose: 1 mg Documented by: Heparin Sodium (Porcine) (Heparin Sodium,Porcine 5,000 Unit/Ml Vial) 5,000 unit SUBCUT Q8H [facility] Last Admin: 01/15/21 14:03 Dose: 5,000 unit Documented by: Hydromorphone HCl (Hydromorphone Hcl 0.5 Mg/0.5 Ml Syringe) 0.5 mg IVPUSH Q4H PRN; Protocol PRN Reason: Breakthrough Pain Last Admin: 01/15/21 08:28 Dose: 0.5 mg Documented by: Piperacillin Sod/Tazobactam (Sod 3.375 gm/ Sodium Chloride) 50 mls @ 100 mls/hr IV Q6H [facility] Last Infusion: 01/15/21 16:57 Dose: Infused Documented by: Vancomycin HCl 1,000 mg/ (Sodium Chloride) 270 mls @ 270 mls/hr IV Q12H [facility] Last Infusion: 01/15/21 19:43 Dose: Infused Documented by: Lorazepam (Lorazepam 1 Mg Tablet) 1 mg PO Q4H PRN PRN Reason: Breakthrough alcohol withdrawa Stop: 01/19/21 05:51 Melatonin (Melatonin 3 Mg Tablet) 6 mg PO BEDTIME PRN PRN Reason: Insomnia Multivitamins/Vitamin C (Multivitamin Tablet) 1 tab PO DAILY [facility] Stop: 01/18/21 08:59 Last Admin: 01/15/21 08:27 Dose: 1 tab Documented by: Oxycodone HCl (Oxycodone Hcl Immed Release 5 Mg Tablet) 5 mg PO Q4H PRN PRN Reason: Pain, Severe (Pain Scale 7-10) Pharmacy Consult (Consult Rx Vancomycin Dosing) 1 each MISCELLANE DAILY PRN PRN Reason: Consult order Senna (Sennosides 8.6 Mg Tablet) 17.2 mg PO BEDTIME PRN PRN Reason: Constipation Sodium Chloride (0.9 % Sodium Chloride Flush 3 Ml Syringe) 3 ml IVFLUSH QSHIFT [facility] Last Admin: 01/15/21 15:11 Dose: Not Given Documented by: Thiamine HCl (Thiamine Hcl 100 Mg Tablet) 100 mg PO DAILY [facility] Stop: 01/18/21 08:59 Last Admin: 01/15/21 08:27 Dose: 100 mg Documented by: Home Medications Medication Instructions Recorded Confirmed Last Taken Type No Known Home Meds 01/15/21 01/15/21 Unknown History Physical Exam Vital Signs: Vital Signs: Last Vital Signs Temp 99.1 F 01/15/21 19:38 Pulse 97 01/15/21 19:38 Resp 18 01/15/21 19:38 BP 133/76 01/15/21 19:38 Pulse Ox 96 01/15/21 19:38 Body Mass Index 19.2 Const: General: No confusion Orientation/consciousness: No confusion Chest: Other: Tender on the left chest wall laterally Resp: Effort & Inspection: normal respiratory effort Cardio: Rhythm: regular rhythm GI: Other: Tender all throughout, no guarding or rebound, not distended, no obvious ecchymosis Neuro: General: No confusion Extrem: Other: Redness on both ankles, with edema. He says he is tender on all his extremities Results Labs CBC & Chem 7: 01/15/21 07:19 01/15/21 07:19 Labs: Short CBC 01/15/21 01/15/21 Range/Units 02:55 07:19 WBC 26.1 H 24.3 H (4.8-10.8) X10*3/uL Hgb 12.6 L 11.9 L (14.0-18.0) g/dl Hct 37.1 L 35.3 L (42.0-52.0) % Plt Count 210 193 (160-400) X10*3/uL BMP 01/15/21 01/15/21 02:55 07:19 Sodium 127 L 128 L Potassium 3.9 3.5 Chloride 91 L 95 L Carbon Dioxide 26 27 BUN 22 H 19 H Creatinine 0.69 0.66 Calcium 7.9 L D 7.4 L D Liver Function 01/15/21 Range/Units 02:55 Total Bilirubin 1.5 H (0.0-1.0) mg/dL Direct Bilirubin 1.0 H (0.0-0.5) mg/dL AST 51 H (5-37) U/L ALT 30 (0-40) U/L Alkaline Phosphatase 96 D (39-117) U/L Albumin 2.7 L D (3.5-5.0) g/dL Microbiology Microbiology Results: Microbiology 01/15/21 03:42 Blood - Venous Blood Culture - Preliminary Prelim: GPC Gram Stain only 01/15/21 03:05 Blood - Venous Blood Culture - Preliminary Prelim: GPC Gram Stain only Assessment and Plan (1) Septic pulmonary embolism: Status: Acute (2) Ascites: Status: Acute 1/ Appears to have multiple septic emboli, currently on AB and getting w/u for endocarditis, this seems to be the priority for treatment 2/ Cirrhosis related to alcohol and prior hep c --may have recontracted hep c, may worsen with sepsis and intercurrent illness 3/ Ascites maybe related to 2/ above or septic emboli and portal venous injury or infection, wth SBP PLAN: 1/ add albumin 1.5 g/kg 25 % for day #1 and 1 g/kg on D#3, in divided doses to prevent renal failure 2/cont with AB as doing, can add levo or cipro-- 3/ SBP, cont with curent abx, 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
[2021-01-15] MEDS: oxyCODONE HCl Immed Release 5 MG TABLET PO (21:23)
[2021-01-15] MEDS: cloNIDine HCL 0.1 MG TABLET PO (21:23)
--- NOTE | 2021-01-15 21:31 | P.CNID_ITS ---
History of Present Illness Data of Consult Service Date: 01/15/21 Requesting physician: Denice Russ Primary Care Provider: Unknown Physician HPI Reason for consult: sepsis, MRSA He presents to hospital with weakness and fatigue. He has MRSA 11/02. He has fever and chills. He uses IV drugs Review of Systems Review of Systems: Yes all other systems are reviewed and are negative PMFSH Past Medical History Medical History Ascites Hematoma and contusion IV drug user Family History Family history: reviewed and not pertinent Social History Social History Household Members: Other Housing: Homeless Do you presently have visiting nurse or other home services: No Alcohol intake: current Alcohol intake frequency: 3 or more drinks per day Alcohol type: beer Patient Tobacco Use Status: Never used Tobacco Tobacco use type: Cigarette e-Cigarette/Vaping Use: Never Used Substance Use Type: Crack/Cocaine service: No Meds Allergies Allergy/AdvReac Type Severity Reaction Status Date / Time No Known Allergies Allergy Verified 01/02/21 06:31 [No Known Allergies*] Active Medications: Current Medications Clonidine HCl (Clonidine Hcl 0.1 Mg Tablet) 0.1 mg PO TID PRN; Protocol PRN Reason: anxiety/restlessness Last Admin: 01/15/21 21:23 Dose: 0.1 mg Documented by: Famotidine (Famotidine 20 Mg Tablet) 20 mg PO BID [facility] Last Admin: 01/15/21 21:23 Dose: 20 mg Documented by: Folic Acid (Folic Acid 1 Mg Tablet) 1 mg PO DAILY [facility] Stop: 01/18/21 08:59 Last Admin: 01/15/21 08:27 Dose: 1 mg Documented by: Heparin Sodium (Porcine) (Heparin Sodium,Porcine 5,000 Unit/Ml Vial) 5,000 unit SUBCUT Q8H [facility] Last Admin: 01/15/21 21:23 Dose: 5,000 unit Documented by: Hydromorphone HCl (Hydromorphone Hcl 0.5 Mg/0.5 Ml Syringe) 0.5 mg IVPUSH Q4H PRN; Protocol PRN Reason: Breakthrough Pain Last Admin: 01/15/21 08:28 Dose: 0.5 mg Documented by: Piperacillin Sod/Tazobactam (Sod 3.375 gm/ Sodium Chloride) 50 mls @ 100 mls/hr IV Q6H [facility] Last Admin: 01/15/21 21:24 Dose: 100 mls/hr Documented by: Vancomycin HCl 1,000 mg/ (Sodium Chloride) 270 mls @ 270 mls/hr IV Q12H [facility] Last Infusion: 01/15/21 19:43 Dose: Infused Documented by: Lorazepam (Lorazepam 1 Mg Tablet) 1 mg PO Q4H PRN PRN Reason: Breakthrough alcohol withdrawa Stop: 01/19/21 05:51 Melatonin (Melatonin 3 Mg Tablet) 6 mg PO BEDTIME PRN PRN Reason: Insomnia Multivitamins/Vitamin C (Multivitamin Tablet) 1 tab PO DAILY [facility] Stop: 01/18/21 08:59 Last Admin: 01/15/21 08:27 Dose: 1 tab Documented by: Oxycodone HCl (Oxycodone Hcl Immed Release 5 Mg Tablet) 5 mg PO Q4H PRN PRN Reason: Pain, Severe (Pain Scale 7-10) Last Admin: 01/15/21 21:23 Dose: 5 mg Documented by: Pharmacy Consult (Consult Rx Vancomycin Dosing) 1 each MISCELLANE DAILY PRN PRN Reason: Consult order Senna (Sennosides 8.6 Mg Tablet) 17.2 mg PO BEDTIME PRN PRN Reason: Constipation Sodium Chloride (0.9 % Sodium Chloride Flush 3 Ml Syringe) 3 ml IVFLUSH QSHIFT [facility] Last Admin: 01/15/21 15:11 Dose: Not Given Documented by: Thiamine HCl (Thiamine Hcl 100 Mg Tablet) 100 mg PO DAILY [facility] Stop: 01/18/21 08:59 Last Admin: 01/15/21 08:27 Dose: 100 mg Documented by: Home Medications Medication Instructions Recorded Confirmed Last Taken Type No Known Home Meds 01/15/21 01/15/21 Unknown History Physical Exam Vital Signs: Vital Signs: Last Vital Signs Temp 99.1 F 01/15/21 19:38 Pulse 98 01/15/21 21:23 Resp 18 01/15/21 19:38 BP 151/62 H 01/15/21 21:23 Pulse Ox 96 01/15/21 19:38 Body Mass Index 19.2 Const: General: cooperative Eyes: General: appearance normal, both eyes and all related structures Resp: Effort & Inspection: normal respiratory effort Cardio: Rate: regular rate Rhythm: regular rhythm GI: Palpation (GI): Soft to palpation and nontender Skin: General skin exam: rashes and/or lesions noted Extrem: Other: right hand slight swollen Results Labs CBC & Chem 7: 01/17/21 05:40 01/17/21 05:40 Labs: Short CBC 01/15/21 01/15/21 Range/Units 02:55 07:19 WBC 26.1 H 24.3 H (4.8-10.8) X10*3/uL Hgb 12.6 L 11.9 L (14.0-18.0) g/dl Hct 37.1 L 35.3 L (42.0-52.0) % Plt Count 210 193 (160-400) X10*3/uL BMP 01/15/21 01/15/21 02:55 07:19 Sodium 127 L 128 L Potassium 3.9 3.5 Chloride 91 L 95 L Carbon Dioxide 26 27 BUN 22 H 19 H Creatinine 0.69 0.66 Calcium 7.9 L D 7.4 L D Liver Function 01/15/21 Range/Units 02:55 Total Bilirubin 1.5 H (0.0-1.0) mg/dL Direct Bilirubin 1.0 H (0.0-0.5) mg/dL AST 51 H (5-37) U/L ALT 30 (0-40) U/L Alkaline Phosphatase 96 D (39-117) U/L Albumin 2.7 L D (3.5-5.0) g/dL Microbiology Microbiology Results: Microbiology 01/15/21 03:42 Blood - Venous Blood Culture - Preliminary Prelim: GPC Gram Stain only 01/15/21 03:05 Blood - Venous Blood Culture - Preliminary Prelim: GPC Gram Stain only Assessment and Plan (1) Opioid use disorder: Status: Acute (2) MRSA bacteremia: Status: Acute He has MRSA bacteremia likely from IVDU He has metastatic site likely left glenohumeral joint.septic pulmonary emboli.ascites possible endocarditis Vancomycin for six weeks likely Await culture if able left glenohumeral,ascites Check echo,possible MICHELLE
[2021-01-16] VITALS (8 sets, daily range): BP systolic 120–134; BP diastolic 60–72; PULSE 84–95; RESP 15–22; TEMP 35.5–37.4; O2SAT 95–97; BMI 19.2
[2021-01-16] MEDS: oxyCODONE HCl Immed Release 5 MG TABLET PO (01:53)
[2021-01-16] MEDS: Piperacillin Sodium/Tazobactam 3.375 GM in 0.9 % Sodium Chloride 50 ML IV ×4 (01:54→21:08)
[2021-01-16] MEDS: 0.9 % Sodium Chloride Flush 3 ML SYRINGE IVFLUSH ×4 (01:54→21:07)
[2021-01-16] MEDS: HYDROmorphone HCl 0.5 MG/0.5 ML SYRINGE IVPUSH ×3 (02:29→23:47)
--- NOTE | 2021-01-16 03:37 | PC.NURSE ---
pt complaining of 8/10 abdominal pain that gets worse with movement. Given prn oxycodone, and notified MD. ordered xray KUB. pt tolerated procedure well. Awaiting results
--- NOTE | 2021-01-16 03:51 | PC.NURSE ---
patient stated he would like to start methadone as soon as possible in the morning.
[2021-01-16] MEDS: Heparin Sodium,Porcine 5,000 UNIT/ML VIAL 5000 UNIT SUBCUT ×3 (05:36→21:07)
[2021-01-16] MEDS: vancomycin HCL 1,000 MG in 0.9 % Sodium Chloride 250 ML 270 MG IV ×2 (05:36→17:01)
[2021-01-16] MEDS: Simethicone 80 MG TAB.CHEW PO ×2 (05:36→21:07)
[2021-01-16 07:23] LABS: Basophils Absolute Auto 0.1 X10*3/uL (0.0-0.2); Basophils Percent Auto 0.2 % (0-2); Hemoglobin 13.2 g/dl (14.0-18.0); Imm Gran Abs Auto 1.24 X10*3/uL (0.00-0.03); Imm Gran Pct Auto 4.4 % (0.0-0.4); Lymphocytes Absolute Auto 1.2 X10*3/uL (1.2-4.9); Lymphocytes Percent Auto 4.1 % (20-40); MANUAL DIFF FLAG SCAN; Mean Corpuscular HGB Conc 33.8 g/dl (31.0-36.0); Mean Corpuscular Volume 85.7 fL (80.0-98.0); Mean Platelet Volume 8.8 fL (9.4-12.4); Monocytes Absolute Auto 0.5 X10*3/uL (0.1-1.2); Monocytes Percent Auto 1.8 % (2-11); Neutrophils Absolute Auto 25.4 x10*3/uL (2.0-8.3); Neutrophils Percent Auto 89.5 % (45-73); Platelet Count 170 X10*3/uL (160-400); Red Blood Count 4.55 X10*6/uL (4.60-5.80); Red Cell Distribution Width 14.7 % (11.0-16.0); SCAN SMEAR FLAG 1; White Blood Count 28.4 X10*3/uL (4.8-10.8)
[2021-01-16 07:51] LABS: Albumin Peritoneal Fluid 0.7
[2021-01-16 07:56] LABS: Alanine Aminotransferase 25 U/L (0-40); Albumin Level 2.2 g/dL (3.5-5.0); Alkaline Phosphatase 85 U/L (39-117); Anion Gap 14 (12-20); Aspartate Amino Transferase 44 U/L (5-37); Bilirubin Total 1.7 mg/dL (0.0-1.0); Blood Urea Nitrogen 14 mg/dL (9-16); Calcium 7.1 mg/dL (8.4-10.2); Carbon Dioxide 24 mmol/L (22-29); Chloride 95 mmol/L (96-108); Creatinine Clr Calc Pharmacy 142.9; Estimated Glomerular Filt Rate > 60; Glucose Random 111 mg/dL (60-115); Potassium 3.5 mmol/L (3.3-5.1); Sodium 129 mmol/L (135-145); Total Protein 5.6 g/dL (6.5-8.0)
[2021-01-16] MEDS: Multivitamin TABLET 1 TAB PO (07:59)
[2021-01-16] MEDS: Famotidine 20 MG TABLET PO ×2 (07:59→21:07)
[2021-01-16] MEDS: Folic Acid 1 MG TABLET PO (07:59)
[2021-01-16] MEDS: Thiamine HCL 100 MG TABLET PO (07:59)
[2021-01-16 08:11] LABS: SLIDE REVIEW VERIFIED
--- NOTE | 2021-01-16 08:24 | PM.PNGS ---
Subjective Subjective Date of Service: 01/16/21 Interval history: No events reported He has pain all over Physical Exam Vital Signs: Vital Signs: Last Vital Signs Temp 98.7 F 01/16/21 07:44 Pulse 90 01/16/21 07:44 Resp 18 01/16/21 07:44 BP 134/65 01/16/21 07:44 Pulse Ox 97 01/16/21 07:44 Body Mass Index 19.2 Chemistry 01/15/21 01/15/21 01/16/21 02:55 07:19 05:50 Sodium 127 L 128 L 129 L Potassium 3.9 3.5 3.5 Carbon Dioxide 26 27 24 BUN 22 H 19 H 14 Creatinine 0.69 0.66 0.59 Calcium 7.9 L D 7.4 L D 7.1 L Hematology 01/15/21 01/15/21 01/16/21 02:55 07:19 05:50 WBC 26.1 H 24.3 H 28.4 H Hgb 12.6 L 11.9 L 13.2 L Plt Count 210 193 170 Const: General: comfortable and no acute distress Chest: Other: Tender along the lower ribcage on the left Resp: Effort & Inspection: normal respiratory effort Cardio: Rhythm: regular rhythm GI: Other: With ascites, soft, left flank area, all the way to the left lower ribcage Extrem: Other: Cellulitis of the dorsum of the hands Procedures Date of Service Date of Service: 01/16/21 Progress Note: A&P Assessment and plan (1) Hematoma and contusion: Status: Acute Assessment and Plan: Along the abdominal wall on the left extending to the lower chest wall Likely from left rib fracture after fall No splenic injury Hemoglobin stable He has cellulitic changes of his hands as well and has septic pulmonary embolism Management as per the hospitalist service Fall Risk Details Current Medications: Current Medications Clonidine HCl (Clonidine Hcl 0.1 Mg Tablet) 0.1 mg PO TID PRN; Protocol PRN Reason: anxiety/restlessness Last Admin: 01/15/21 21:23 Dose: 0.1 mg Documented by: Famotidine (Famotidine 20 Mg Tablet) 20 mg PO BID [facility] Last Admin: 01/16/21 07:59 Dose: 20 mg Documented by: Folic Acid (Folic Acid 1 Mg Tablet) 1 mg PO DAILY [facility] Stop: 01/18/21 08:59 Last Admin: 01/16/21 07:59 Dose: 1 mg Documented by: Heparin Sodium (Porcine) (Heparin Sodium,Porcine 5,000 Unit/Ml Vial) 5,000 unit SUBCUT Q8H [facility] Last Admin: 01/16/21 05:36 Dose: 5,000 unit Documented by: Hydromorphone HCl (Hydromorphone Hcl 0.5 Mg/0.5 Ml Syringe) 0.5 mg IVPUSH Q4H PRN; Protocol PRN Reason: Breakthrough Pain Last Admin: 01/16/21 08:14 Dose: 0.5 mg Documented by: Piperacillin Sod/Tazobactam (Sod 3.375 gm/ Sodium Chloride) 50 mls @ 100 mls/hr IV Q6H [facility] Last Admin: 01/16/21 08:03 Dose: 100 mls/hr Documented by: Vancomycin HCl 1,000 mg/ (Sodium Chloride) 270 mls @ 270 mls/hr IV Q12H [facility] Last Infusion: 01/16/21 07:30 Dose: Infused Documented by: Albumin Human (Kedbumin 25 %) 100 mls @ 100 mls/hr IV Q6H [facility] Stop: 01/17/21 03:14 Albumin Human (Kedbumin 25 %) 100 mls @ 100 mls/hr IV Q1H [facility] Stop: 01/18/21 10:14 Lorazepam (Lorazepam 1 Mg Tablet) 1 mg PO Q4H PRN PRN Reason: Breakthrough alcohol withdrawa Stop: 01/19/21 05:51 Melatonin (Melatonin 3 Mg Tablet) 6 mg PO BEDTIME PRN PRN Reason: Insomnia Multivitamins/Vitamin C (Multivitamin Tablet) 1 tab PO DAILY [facility] Stop: 01/18/21 08:59 Last Admin: 01/16/21 07:59 Dose: 1 tab Documented by: Oxycodone HCl (Oxycodone Hcl Immed Release 5 Mg Tablet) 5 mg PO Q4H PRN PRN Reason: Pain, Severe (Pain Scale 7-10) Last Admin: 01/16/21 01:53 Dose: 5 mg Documented by: Pharmacy Consult (Consult Rx Vancomycin Dosing) 1 each MISCELLANE DAILY PRN PRN Reason: Consult order Senna (Sennosides 8.6 Mg Tablet) 17.2 mg PO BEDTIME PRN PRN Reason: Constipation Simethicone (Simethicone 80 Mg Tab.Chew) 80 mg PO QIDWMHS PRN PRN Reason: Gas Last Admin: 01/16/21 05:36 Dose: 80 mg Documented by: Sodium Chloride (0.9 % Sodium Chloride Flush 3 Ml Syringe) 3 ml IVFLUSH QSHIFT [facility] Last Admin: 01/16/21 01:54 Dose: 3 ml Documented by: Thiamine HCl (Thiamine Hcl 100 Mg Tablet) 100 mg PO DAILY [facility] Stop: 01/18/21 08:59 Last Admin: 01/16/21 07:59 Dose: 100 mg Documented by: Time Spent With Patient Time: Total time spent is greater than 50% in coordination of care (as documented) at patient's floor/unit and/or counseling patient: Time with patient: 15 - 24 minutes Quality Stroke Does the patient have a stroke diagnosis?: No VTE Prior VTE?: No VTE Risk Level:: Medical - moderate - high VTE Device Contraindication: Treatment Not Indicated VTE Drug Contraindication: N/A - Med Ordered
--- NOTE | 2021-01-16 09:36 | P.EN_ITS ---
Event Note Date of Service: 01/16/21 Event Note: 35-year-old gentleman who was admitted to medical service for bact eremia. Orthopedics consulted for possible left shoulder septic joint. Patient seen today and he denied pain in the left or right shoulder. He was able to move the arm without any pain. Given his subjective and objective findings this does not correlate with a septic joint. X-rays negative for any acute or chronic abnormalities.
--- NOTE | 2021-01-16 09:37 | PM.CNOR ---
History of Present Illness HPI Consult date: 01/16/21 Chief complaint: Bacteremia Narrative: 35-year-old gentleman who was admitted to medical service for bacteremia.? Orthopedics consulted for possible left shoulder septic joint as he was complaining of left shoulder pain. No trauma to shoulder. Review of Systems Review of Systems: Yes all other systems are reviewed and are negative PMFSH Past Medical History Medical History Hematoma and contusion IV drug user Family History Family history: reviewed and not pertinent Social History Social History Household Members: Other Housing: Homeless Do you presently have visiting nurse or other home services: No Alcohol intake: current Alcohol intake frequency: 3 or more drinks per day Alcohol type: beer Patient Tobacco Use Status: Never used Tobacco Tobacco use type: Cigarette e-Cigarette/Vaping Use: Never Used Substance Use Type: Crack/Cocaine service: No Meds Allergies Allergy/AdvReac Type Severity Reaction Status Date / Time No Known Allergies Allergy Verified 01/02/21 06:31 [No Known Allergies*] Active Medications: Current Medications Clonidine HCl (Clonidine Hcl 0.1 Mg Tablet) 0.1 mg PO TID PRN; Protocol PRN Reason: anxiety/restlessness Last Admin: 01/15/21 21:23 Dose: 0.1 mg Documented by: Famotidine (Famotidine 20 Mg Tablet) 20 mg PO BID [facility] Last Admin: 01/16/21 07:59 Dose: 20 mg Documented by: Folic Acid (Folic Acid 1 Mg Tablet) 1 mg PO DAILY [facility] Stop: 01/18/21 08:59 Last Admin: 01/16/21 07:59 Dose: 1 mg Documented by: Heparin Sodium (Porcine) (Heparin Sodium,Porcine 5,000 Unit/Ml Vial) 5,000 unit SUBCUT Q8H [facility] Last Admin: 01/16/21 05:36 Dose: 5,000 unit Documented by: Hydromorphone HCl (Hydromorphone Hcl 0.5 Mg/0.5 Ml Syringe) 0.5 mg IVPUSH Q4H PRN; Protocol PRN Reason: Breakthrough Pain Last Admin: 01/16/21 08:14 Dose: 0.5 mg Documented by: Piperacillin Sod/Tazobactam (Sod 3.375 gm/ Sodium Chloride) 50 mls @ 100 mls/hr IV Q6H [facility] Last Infusion: 01/16/21 09:20 Dose: Infused Documented by: Vancomycin HCl 1,000 mg/ (Sodium Chloride) 270 mls @ 270 mls/hr IV Q12H [facility] Last Infusion: 01/16/21 07:30 Dose: Infused Documented by: Albumin Human (Kedbumin 25 %) 100 mls @ 100 mls/hr IV Q6H [facility] Stop: 01/17/21 03:14 Albumin Human (Kedbumin 25 %) 100 mls @ 100 mls/hr IV Q1H [facility] Stop: 01/18/21 10:14 Lorazepam (Lorazepam 1 Mg Tablet) 1 mg PO Q4H PRN PRN Reason: Breakthrough alcohol withdrawa Stop: 01/19/21 05:51 Melatonin (Melatonin 3 Mg Tablet) 6 mg PO BEDTIME PRN PRN Reason: Insomnia Multivitamins/Vitamin C (Multivitamin Tablet) 1 tab PO DAILY [facility] Stop: 01/18/21 08:59 Last Admin: 01/16/21 07:59 Dose: 1 tab Documented by: Oxycodone HCl (Oxycodone Hcl Immed Release 5 Mg Tablet) 5 mg PO Q4H PRN PRN Reason: Pain, Severe (Pain Scale 7-10) Last Admin: 01/16/21 01:53 Dose: 5 mg Documented by: Pharmacy Consult (Consult Rx Vancomycin Dosing) 1 each MISCELLANE DAILY PRN PRN Reason: Consult order Senna (Sennosides 8.6 Mg Tablet) 17.2 mg PO BEDTIME PRN PRN Reason: Constipation Simethicone (Simethicone 80 Mg Tab.Chew) 80 mg PO QIDWMHS PRN PRN Reason: Gas Last Admin: 01/16/21 05:36 Dose: 80 mg Documented by: Sodium Chloride (0.9 % Sodium Chloride Flush 3 Ml Syringe) 3 ml IVFLUSH QSHIFT [facility] Last Admin: 01/16/21 01:54 Dose: 3 ml Documented by: Thiamine HCl (Thiamine Hcl 100 Mg Tablet) 100 mg PO DAILY [facility] Stop: 01/18/21 08:59 Last Admin: 01/16/21 07:59 Dose: 100 mg Documented by: Home Medications Medication Instructions Recorded Confirmed Last Taken Type No Known Home Meds 01/15/21 01/15/21 Unknown History Physical Exam Vital Signs: Vital Signs: Last Vital Signs Temp 98.7 F 01/16/21 07:44 Pulse 90 01/16/21 07:44 Resp 18 01/16/21 07:44 BP 134/65 01/16/21 07:44 Pulse Ox 97 01/16/21 07:44 Body Mass Index 19.2 Const: General: no acute distress Extrem: Other: Patient seen today , in bed sleeping. Woke him up and he denied pain in the left or right shoulder.? He was able to move the arm without any pain. X-rays negative for any acute or chronic abnormalities. Results Labs Result Diagrams: 01/17/21 05:40 01/17/21 05:40 Labs: Abnormal lab results 01/15/21 01/16/21 01/16/21 Range/Units 11:17 05:50 05:50 WBC 28.4 H (4.8-10.8) X10*3/uL RBC 4.55 L (4.60-5.80) X10*6/uL Hgb 13.2 L (14.0-18.0) g/dl Hct 39.0 L (42.0-52.0) % MPV 8.8 L (9.4-12.4) fL Immature Gran % (Auto) 4.4 H (0.0-0.4) % Neut % (Auto) 89.5 H (45-73) % Lymph % (Auto) 4.1 L (20-40) % Sargent % (Auto) 1.8 L (2-11) % Abs Immat Gran (auto) 1.24 H (0.00-0.03) X10*3/uL Absolute Neuts (auto) 25.4 H (2.0-8.3) x10*3/uL PT 17.6 H (9.9-13.0) SEC INR 1.5 H (0.9-1.1) Sodium 129 L (135-145) mmol/L Chloride 95 L (96-108) mmol/L Calcium 7.1 L (8.4-10.2) mg/dL Total Bilirubin 1.7 H (0.0-1.0) mg/dL AST 44 H (5-37) U/L Total Protein 5.6 L (6.5-8.0) g/dL Albumin 2.2 L (3.5-5.0) g/dL H & H 01/15/21 01/15/21 01/16/21 Range/Units 02:55 07:19 05:50 Hgb 12.6 L 11.9 L 13.2 L (14.0-18.0) g/dl Hct 37.1 L 35.3 L 39.0 L (42.0-52.0) % Coagulation 01/15/21 Range/Units 11:17 INR 1.5 H (0.9-1.1) All other labs normal. Assessment and Plan (1) Left shoulder pain: Status: Acute Given his subjective and objective findings this does not correlate with a septic joint. If symptoms arise, feel free to re-consult. Procedures Date of Service Date of Service: 01/16/21
[2021-01-16] MEDS: methADONE HCl 20 MG/2 ML ORAL.CONC PO (09:40)
[2021-01-16] MEDS: Albumin Human 25 % 100 ML IV ×3 (09:43→19:54)
--- NOTE | 2021-01-16 11:09 | MHC.RECOVRN ---
Met with pt in 443 to f/u regarding methadone initiation. Pt laying in bed sleeping, wakes to voice. Pt reports desire to initiate at this time, withdrawal symptoms include body aches, upset stomach, and vomiting. Denies diarrhea. Pt difficult to engage in conversation due to all over body pain. Discussed with Elvira Chavez APRN, will f/u with pt after methadone dose and more comfortable.
--- NOTE | 2021-01-16 12:00 | MHC.RECOVRN ---
F/u with pt after receiving methadone dose. Pt asleep. Pt given recovery resources, will discuss at a later time.
--- NOTE | 2021-01-16 12:17 | HO.PM.IMPN ---
Subjective Subjective Date of Service: 01/16/21 Interval History: No fever No dyspnea or cough Denies L shoulder pain Abd less distended s/p paracentesis yesterday Painful/red hands + ankles Review of Systems Review of Systems: Yes all other systems are reviewed and are negative Physical Exam Vital Signs: Vital Signs: Last Vital Signs Temp 98.0 F 01/16/21 11:20 Pulse 93 01/16/21 11:20 Resp 18 01/16/21 11:20 BP 129/65 01/16/21 11:20 Pulse Ox 97 01/16/21 11:20 Body Mass Index 19.2 Gen: disheveled HEENT: sclera anicteric, moist mucus membranes Neck: supple Lungs: clear to auscultation bilaterally Heart: regular rate and rhythm, no murmurs Abd: soft, ascites present Ext: no edema Skin: erythema on ankles Neuro: alert and oriented x3, no focal findings Psych: appropriate affect Objective Data Active Medications Clonidine HCl (Clonidine Hcl 0.1 Mg Tablet) 0.1 mg PO TID PRN; Protocol PRN Reason: anxiety/restlessness Last Admin: 01/15/21 21:23 Dose: 0.1 mg Documented by: SALINA Famotidine (Famotidine 20 Mg Tablet) 20 mg PO BID [facility] Last Admin: 01/16/21 07:59 Dose: 20 mg Documented by: REKHA Folic Acid (Folic Acid 1 Mg Tablet) 1 mg PO DAILY [facility] Stop: 01/18/21 08:59 Last Admin: 01/16/21 07:59 Dose: 1 mg Documented by: REKHA Heparin Sodium (Porcine) (Heparin Sodium,Porcine 5,000 Unit/Ml Vial) 5,000 unit SUBCUT Q8H [facility] Last Admin: 01/16/21 05:36 Dose: 5,000 unit Documented by: SALINA Hydromorphone HCl (Hydromorphone Hcl 0.5 Mg/0.5 Ml Syringe) 0.5 mg IVPUSH Q4H PRN; Protocol PRN Reason: Breakthrough Pain Last Admin: 01/16/21 08:14 Dose: 0.5 mg Documented by: REKHA Piperacillin Sod/Tazobactam (Sod 3.375 gm/ Sodium Chloride) 50 mls @ 100 mls/hr IV Q6H [facility] Last Infusion: 01/16/21 09:20 Dose: 0 mls/hr Documented by: REKHA Vancomycin HCl 1,000 mg/ (Sodium Chloride) 270 mls @ 270 mls/hr IV Q12H [facility] Last Infusion: 01/16/21 07:30 Dose: 1 mls/hr Documented by: REKHA Albumin Human (Kedbumin 25 %) 100 mls @ 100 mls/hr IV Q6H [facility] Stop: 01/17/21 03:14 Last Infusion: 01/16/21 10:51 Dose: 0 mls/hr Documented by: REKHA Albumin Human (Kedbumin 25 %) 100 mls @ 100 mls/hr IV Q1H [facility] Stop: 01/18/21 10:14 Lorazepam (Lorazepam 1 Mg Tablet) 1 mg PO Q4H PRN PRN Reason: Breakthrough alcohol withdrawa Stop: 01/19/21 05:51 Melatonin (Melatonin 3 Mg Tablet) 6 mg PO BEDTIME PRN PRN Reason: Insomnia Multivitamins/Vitamin C (Multivitamin Tablet) 1 tab PO DAILY [facility] Stop: 01/18/21 08:59 Last Admin: 01/16/21 07:59 Dose: 1 tab Documented by: REKHA Oxycodone HCl (Oxycodone Hcl Immed Release 5 Mg Tablet) 5 mg PO Q4H PRN PRN Reason: Pain, Severe (Pain Scale 7-10) Last Admin: 01/16/21 01:53 Dose: 5 mg Documented by: SALINA Pharmacy Consult (Consult Rx Vancomycin Dosing) 1 each MISCELLANE DAILY PRN PRN Reason: Consult order Senna (Sennosides 8.6 Mg Tablet) 17.2 mg PO BEDTIME PRN PRN Reason: Constipation Simethicone (Simethicone 80 Mg Tab.Chew) 80 mg PO QIDWMHS PRN PRN Reason: Gas Last Admin: 01/16/21 05:36 Dose: 80 mg Documented by: SALINA Sodium Chloride (0.9 % Sodium Chloride Flush 3 Ml Syringe) 3 ml IVFLUSH QSHIFT [facility] Last Admin: 01/16/21 09:43 Dose: 3 ml Documented by: REKHA Thiamine HCl (Thiamine Hcl 100 Mg Tablet) 100 mg PO DAILY [facility] Stop: 01/18/21 08:59 Last Admin: 01/16/21 07:59 Dose: 100 mg Documented by: REKHA Labs CBC & Chem 7: 01/16/21 05:50 01/16/21 05:50 Labs: Laboratory Results - last 24 hr 01/15/21 01/15/21 01/15/21 10:02 16:13 16:13 MCV MCH MCHC RDW Plt Count MPV Immature Gran % (Auto) Neut % (Auto) Lymph % (Auto) [place] % (Auto) Eos % (Auto) Baso % (Auto) Lymph # (Auto) [place] # (Auto) Eos # (Auto) Baso # (Auto) Abs Immat Gran (auto) Absolute Neuts (auto) Absolute Nucleated RBC Nucleated RBC % (auto) Smear Tech's Comments Anion Gap Estim Creat Clear Calc Estimated GFR Random Glucose Calcium Magnesium Total Bilirubin AST ALT Alkaline Phosphatase Total Protein Albumin Peritoneal WBC 30.100 Peritoneal RBC 0.003 Periton Neutrophils 86 Periton Lymphocytes 4 Peritoneal Monocytes 9 Peritoneal Other Cells 1 Peritoneal Albumin 0.7 Hep Bs Antigen Negative Hep Bs Antibody REACTIVE Hep B Core Total Ab Nonreactive HIV 1&2 Ab/P24 Ag 4thGn Nonreactive 01/16/21 01/16/21 05:50 05:50 MCV 85.7 MCH 29.0 MCHC 33.8 RDW 14.7 Plt Count 170 MPV 8.8 L Immature Gran % (Auto) 4.4 H Neut % (Auto) 89.5 H Lymph % (Auto) 4.1 L [place] % (Auto) 1.8 L Eos % (Auto) 0.0 Baso % (Auto) 0.2 Lymph # (Auto) 1.2 [place] # (Auto) 0.5 Eos # (Auto) 0.0 Baso # (Auto) 0.1 Abs Immat Gran (auto) 1.24 H Absolute Neuts (auto) 25.4 H Absolute Nucleated RBC 0.000 Nucleated RBC % (auto) 0.0 Smear Tech's Comments VERIFIED Anion Gap 14 Estim Creat Clear Calc 142.9 Estimated GFR > 60 Random Glucose 111 Calcium 7.1 L Magnesium 2.0 Total Bilirubin 1.7 H AST 44 H ALT 25 Alkaline Phosphatase 85 Total Protein 5.6 L Albumin 2.2 L Peritoneal WBC Peritoneal RBC Periton Neutrophils Periton Lymphocytes Peritoneal Monocytes Peritoneal Other Cells Peritoneal Albumin Hep Bs Antigen Hep Bs Antibody Hep B Core Total Ab HIV 1&2 Ab/P24 Ag 4thGn Impressions Chest CT 01/15/21 12:10 IMPRESSION: * Findings consistent with septic embolic disease and multilobar pneumonia. Trace left pleural effusion is present. No pneumothorax. The pulmonary abnormalities are new compared to 01/02/2021. * There is a new finding of fluid attenuation projecting anterior to the left glenohumeral joint, probably within the subcoracoid bursa, and there is left axillary lymphadenopathy. In a patient with history of intravenous drug abuse and septic emboli, the possibility of infection at the left glenohumeral joint and/or bursal space is considered. * Cirrhotic liver, splenomegaly and ascites. Paracentesis Ultrasound 01/15/21 16:30 IMPRESSION: Ultrasound-guided paracentesis. Shoulder X-Ray 01/15/21 18:15 IMPRESSION: No acute abnormality. KUB X-Ray 01/16/21 02:54 IMPRESSION: Normal bowel gas pattern. TTE 01/15/21 - The left ventricular systolic function is normal.? The visually estimated ejection fraction is between 55-60%. ? - Valves not well visualized, but based on available images, no? obvious vegetation noted.? Microbiology Microbiology Results: Microbiology 01/15/21 03:42 Blood Culture - Preliminary Blood - Venous Staphylococcus aureus 01/15/21 03:05 Blood Culture - Preliminary Blood - Venous Staphylococcus aureus 01/15/21 16:13 Gram Stain - Final Ascites Fluid Anaerobic Culture - Preliminary No growth to date. Body Fluid Culture - Preliminary No growth to date. Assessment and Plan (1) Ascites: Status: Acute (2) MRSA bacteremia: Status: Acute Assessment and Plan: hospital d#2 35yo M with ongoing JOSEFINA presenting with bilateral foot pain; recent ED visit during which MRSA bacteremia was diagnosted [01/02/21] but pt could not be contacted to be called back BCx still positive new-onset cirrhosis with ascites meeting criteria for SBP [place] 99324 WBCs, 86% of which are PMNs concern for L shoulder septic arthritis/bursitis # MRSA bacteremia - vancomycin d#2, TTE, repeat BCx tomorrow, ID consulted # SBP - MRSA? continue vancomycin + pip/yumiko d#2. follow ascites Cx. will give albumin 1.5 g/kg today and 1 g/kg on 01/18/21. GI consulted # septic emboli - likely due to MRSA bacteremia # cellulitis of feet [possibly hands as well] - vancomycin + pip/yumiko, follow BCx # L glenohumeral/bursal fluid collection - possibility of septic arthritis- Ortho consulted # hypoNa - likely due to cirrhosis; . fluid restrict to 1500 mL/d. monitor electrolytes # LUQ hematoma - per Surgery , no intervention indicated # opioid use disorder - addiction medicione consulted, started on methadone - clonidine + prn lorazepam # cirrhosis - rescreen HCV with viral load. HBV immune + HIV negative # EtOH abuse - prn CIWA # VTE ppx - UFH Quality Stroke Does the patient have a stroke diagnosis?: No VTE Prior VTE?: No VTE Risk Level:: Medical - moderate - high VTE Device Contraindication: Treatment Not Indicated VTE Drug Contraindication: N/A - Med Ordered
--- NOTE | 2021-01-16 13:00 | MHC.CLN ---
Addendum entered by Alice Syed, TIFFANIE 01/16/21 13:04: AGREE WITH PROVIDER'S ASSESSMENT BELOW Original Note: PT IS MODERATELY MALNOURISHED PT HAS MILD SUBCUTANEOUS FAT DEPLETION IN TRICEPS, SEVERE MUSCLE WASTING OF TEMPLES, AND IS 81% OF IBW DIET RX: REGULAR WITH 1500 MLS/DAY FLUID RESTRICTION-APPROPRIATE PT STATED HE HAS A DECREASED APPETITIE DUE TO ABDOMINAL PAIN PT RECEIVING ENSURE SUPPLEMENT TID TO PROVIDE 1050 KCALS, 60 GRAMS PROTEIN, AND 540 ML TOTAL FREE WATER (FOR FLUID RESTRICTION) MONITOR PO INTAKE AND SUPPLEMENT ACCEPTANCE
[2021-01-16] MEDS: methADONE HCl 20 MG/2 ML ORAL.CONC 5 MG PO ×2 (14:53→17:56)
--- NOTE | 2021-01-16 16:03 | MHC.CM.PN ---
Male 35 DX Bacteremia Patient is Homeless. He has been started on Methadone here. He states that he can not walk r/t LE wounds. DP LT ABX a referral has been sent to [facility]. He will transport via BLS.
[2021-01-16 16:23] LABS: Vancomycin Trough 4.8 mcg/mL (10.0-20.0)
--- NOTE | 2021-01-16 16:43 | HE.PHANOTE ---
VANCOMYCIN DOSING CHANGE TROUGH ON 01/16 CAME BACK AT 4.8 AT 1600. BASED ON THIS TROUGH DOSE ADJUSTED TO Q8H WITH PREDICTED AAUC OF 447 AND TROUGH OF 11.1
--- NOTE | 2021-01-16 16:55 | P.PNADD_ITS ---
Subjective Subjective Date of Service: 01/16/21 Reason For Visit: Bacteremia Interim History: No methadone given overnight patient reporting loose stools, nausea, malaise, body aches. Visibly diaphoretic, anxious. 20mg methadone given with good effect. Follow up 2 hours later, still reporting withdrawal sx., additional 5 mg ordered Review of Systems Acute medical concerns: Yes Medical Review of Systems: unchanged Mental Status Exam Mental Status Exam Patient Appearance: Fatigued Patient Orientation: Person, Place, Time and Situation Level of Consciousness: Appropriate Patient Behavior: Appropriate Mood Description: Anxious Affect Description: Anxious Speech Pattern: Clear Thought Process: Goal Oriented Thought Content: positive for Goal Oriented Judgement: Good Diagnostics Vital Signs (24Hr): Vital Signs - 24 hr 01/15/21 19:38 01/15/21 21:23 01/15/21 23:01 Temperature 99.1 F 97.9 F Pulse Rate 97 98 89 Respiratory Rate 18 18 Blood Pressure 133/76 151/62 H 115/60 Pulse Oximetry 96 98 01/16/21 02:15 01/16/21 03:59 01/16/21 07:44 Temperature 99.4 F 98.7 F 98.7 F Pulse Rate 92 84 90 Respiratory Rate 22 H 20 18 Blood Pressure 126/63 132/71 134/65 Pulse Oximetry 97 97 97 01/16/21 11:20 01/16/21 15:00 Temperature 98.0 F 99 F Pulse Rate 93 88 Respiratory Rate 18 15 Blood Pressure 129/65 120/60 Pulse Oximetry 97 95 Body Mass Index 19.2 Labs Results: 01/16/21 05:50 01/16/21 05:50 Labs: Laboratory Results - last 48 hr 01/15/21 01/15/21 01/15/21 02:55 02:55 02:55 WBC 26.1 H RBC 4.35 L Hgb 12.6 L Hct 37.1 L MCV 85.3 MCH 29.0 MCHC 34.0 RDW 14.5 Plt Count 210 MPV 8.2 L Immature Gran % (Auto) Cancelled Neut % (Auto) Cancelled Lymph % (Auto) Cancelled [place] % (Auto) Cancelled Eos % (Auto) Cancelled Baso % (Auto) Cancelled Lymph # (Auto) Cancelled [place] # (Auto) Cancelled Eos # (Auto) Cancelled Baso # (Auto) Cancelled Abs Immat Gran (auto) Cancelled Absolute Neuts (auto) Cancelled Absolute Nucleated RBC 0.020 H Nucleated RBC % (auto) 0.1 Neutrophils % (Manual) 73 Band Neutrophils % 17 H Lymphocytes % (Manual) 6 L Atypical Lymphs % (Man) 1 Monocytes % (Manual) 3 Abs Neuts (Manual) 23.5 H Lymphocytes # (Manual) 1.6 Atyp Lymphs # (Manual) 0.3 Monocytes # (Manual) 0.8 Toxic Granulation PRESENT Platelet Estimate NORMAL Plt Morphology Comment NORMAL RBC Morphology NORMAL Smear Tech's Comments PT INR Sodium 127 L Potassium 3.9 Chloride 91 L Carbon Dioxide 26 Anion Gap 14 BUN 22 H Creatinine 0.69 Estim Creat Clear Calc 122.2 Estimated GFR > 60 Random Glucose 111 Lactic Acid 1.6 Calcium 7.9 L D Magnesium 2.0 Total Bilirubin 1.5 H Direct Bilirubin 1.0 H AST 51 H ALT 30 Alkaline Phosphatase 96 D Total Protein 6.5 Albumin 2.7 L D Peritoneal WBC Peritoneal RBC Periton Neutrophils Periton Lymphocytes Peritoneal Monocytes Peritoneal Other Cells Peritoneal Albumin Vancomycin Trough COVID-19 (TAMRA) COVID-19 Clin Com Hep Bs Antigen Hep Bs Antibody Hep B Core Total Ab HIV 1&2 Ab/P24 Ag 4thGn 01/15/21 01/15/21 01/15/21 02:55 07:19 07:19 WBC 24.3 H RBC 4.13 L Hgb 11.9 L Hct 35.3 L MCV 85.5 MCH 28.8 MCHC 33.7 RDW 14.6 Plt Count 193 MPV 8.6 L Immature Gran % (Auto) 3.4 H Neut % (Auto) 85.2 H Lymph % (Auto) 6.9 L [place] % (Auto) 3.9 Eos % (Auto) 0.4 Baso % (Auto) 0.2 Lymph # (Auto) 1.7 [place] # (Auto) 0.9 Eos # (Auto) 0.1 Baso # (Auto) 0.1 Abs Immat Gran (auto) 0.82 H Absolute Neuts (auto) 20.7 H Absolute Nucleated RBC 0.000 Nucleated RBC % (auto) 0.0 Neutrophils % (Manual) Band Neutrophils % Lymphocytes % (Manual) Atypical Lymphs % (Man) Monocytes % (Manual) Abs Neuts (Manual) Lymphocytes # (Manual) Atyp Lymphs # (Manual) Monocytes # (Manual) Toxic Granulation Platelet Estimate Plt Morphology Comment RBC Morphology Smear Tech's Comments VERIFIED PT INR Sodium 128 L Potassium 3.5 Chloride 95 L Carbon Dioxide 27 Anion Gap 10 L BUN 19 H Creatinine 0.66 Estim Creat Clear Calc 127.8 Estimated GFR > 60 Random Glucose 106 Lactic Acid Calcium 7.4 L D Magnesium Total Bilirubin Direct Bilirubin AST ALT Alkaline Phosphatase Total Protein Albumin Peritoneal WBC Peritoneal RBC Periton Neutrophils Periton Lymphocytes Peritoneal Monocytes Peritoneal Other Cells Peritoneal Albumin Vancomycin Trough COVID-19 (TAMRA) Negative COVID-19 Clin Com See Note Hep Bs Antigen Hep Bs Antibody Hep B Core Total Ab HIV 1&2 Ab/P24 Ag 4thGn 01/15/21 01/15/21 01/15/21 10:02 11:17 16:13 WBC RBC Hgb Hct MCV MCH MCHC RDW Plt Count MPV Immature Gran % (Auto) Neut % (Auto) Lymph % (Auto) [place] % (Auto) Eos % (Auto) Baso % (Auto) Lymph # (Auto) [place] # (Auto) Eos # (Auto) Baso # (Auto) Abs Immat Gran (auto) Absolute Neuts (auto) Absolute Nucleated RBC Nucleated RBC % (auto) Neutrophils % (Manual) Band Neutrophils % Lymphocytes % (Manual) Atypical Lymphs % (Man) Monocytes % (Manual) Abs Neuts (Manual) Lymphocytes # (Manual) Atyp Lymphs # (Manual) Monocytes # (Manual) Toxic Granulation Platelet Estimate Plt Morphology Comment RBC Morphology Smear Tech's Comments PT 17.6 H INR 1.5 H Sodium Potassium Chloride Carbon Dioxide Anion Gap BUN Creatinine Estim Creat Clear Calc Estimated GFR Random Glucose Lactic Acid Calcium Magnesium Total Bilirubin Direct Bilirubin AST ALT Alkaline Phosphatase Total Protein Albumin Peritoneal WBC 30.100 Peritoneal RBC 0.003 Periton Neutrophils 86 Periton Lymphocytes 4 Peritoneal Monocytes 9 Peritoneal Other Cells 1 Peritoneal Albumin Vancomycin Trough COVID-19 (TAMRA) COVID-19 Clin Com Hep Bs Antigen Negative Hep Bs Antibody REACTIVE Hep B Core Total Ab Nonreactive HIV 1&2 Ab/P24 Ag 4thGn Nonreactive 01/15/21 01/16/21 01/16/21 16:13 05:50 05:50 WBC 28.4 H RBC 4.55 L Hgb 13.2 L Hct 39.0 L MCV 85.7 MCH 29.0 MCHC 33.8 RDW 14.7 Plt Count 170 MPV 8.8 L Immature Gran % (Auto) 4.4 H Neut % (Auto) 89.5 H Lymph % (Auto) 4.1 L [place] % (Auto) 1.8 L Eos % (Auto) 0.0 Baso % (Auto) 0.2 Lymph # (Auto) 1.2 [place] # (Auto) 0.5 Eos # (Auto) 0.0 Baso # (Auto) 0.1 Abs Immat Gran (auto) 1.24 H Absolute Neuts (auto) 25.4 H Absolute Nucleated RBC 0.000 Nucleated RBC % (auto) 0.0 Neutrophils % (Manual) Band Neutrophils % Lymphocytes % (Manual) Atypical Lymphs % (Man) Monocytes % (Manual) Abs Neuts (Manual) Lymphocytes # (Manual) Atyp Lymphs # (Manual) Monocytes # (Manual) Toxic Granulation Platelet Estimate Plt Morphology Comment RBC Morphology Smear Tech's Comments VERIFIED PT INR Sodium 129 L Potassium 3.5 Chloride 95 L Carbon Dioxide 24 Anion Gap 14 BUN 14 Creatinine 0.59 Estim Creat Clear Calc 142.9 Estimated GFR > 60 Random Glucose 111 Lactic Acid Calcium 7.1 L Magnesium 2.0 Total Bilirubin 1.7 H Direct Bilirubin AST 44 H ALT 25 Alkaline Phosphatase 85 Total Protein 5.6 L Albumin 2.2 L Peritoneal WBC Peritoneal RBC Periton Neutrophils Periton Lymphocytes Peritoneal Monocytes Peritoneal Other Cells Peritoneal Albumin 0.7 Vancomycin Trough COVID-19 (TAMRA) COVID-19 Clin Com Hep Bs Antigen Hep Bs Antibody Hep B Core Total Ab HIV 1&2 Ab/P24 Ag 4thGn 01/16/21 15:54 WBC RBC Hgb Hct MCV MCH MCHC RDW Plt Count MPV Immature Gran % (Auto) Neut % (Auto) Lymph % (Auto) [place] % (Auto) Eos % (Auto) Baso % (Auto) Lymph # (Auto) [place] # (Auto) Eos # (Auto) Baso # (Auto) Abs Immat Gran (auto) Absolute Neuts (auto) Absolute Nucleated RBC Nucleated RBC % (auto) Neutrophils % (Manual) Band Neutrophils % Lymphocytes % (Manual) Atypical Lymphs % (Man) Monocytes % (Manual) Abs Neuts (Manual) Lymphocytes # (Manual) Atyp Lymphs # (Manual) Monocytes # (Manual) Toxic Granulation Platelet Estimate Plt Morphology Comment RBC Morphology Smear Tech's Comments PT INR Sodium Potassium Chloride Carbon Dioxide Anion Gap BUN Creatinine Estim Creat Clear Calc Estimated GFR Random Glucose Lactic Acid Calcium Magnesium Total Bilirubin Direct Bilirubin AST ALT Alkaline Phosphatase Total Protein Albumin Peritoneal WBC Peritoneal RBC Periton Neutrophils Periton Lymphocytes Peritoneal Monocytes Peritoneal Other Cells Peritoneal Albumin Vancomycin Trough 4.8 L COVID-19 (TAMRA) COVID-19 Clin Com Hep Bs Antigen Hep Bs Antibody Hep B Core Total Ab HIV 1&2 Ab/P24 Ag 4thGn Imaging Radiology Impressions: ITS Impressions Venous Duplex 01/15/21 02:41 IMPRESSION: No DVT demonstrated in the bilateral lower extremity. Ankle X-Ray 01/15/21 04:40 IMPRESSION: Soft tissue swelling with probable ankle joint effusion. No osseous abnormality. Abdomen/Pelvis CT 01/15/21 05:20 IMPRESSION: 1. Cirrhotic liver with moderate volume ascites. Separate loculation of fluid along the left abdominal wall with mixed internal attenuation, concerning for hematoma. 2. New appearance of multifocal consolidative nodular opacities at both lung bases, likely with early cavitation. Given the previous clinical history this may represent septic emboli. This critical result was discussed with Robin Mercedes MD by telephone at 01/15/2021 5:49 AM and it was ascertained that the content and urgency of the report was understood at the time of direct communication. Chest CT 01/15/21 12:10 IMPRESSION: * Findings consistent with septic embolic disease and multilobar pneumonia. Trace left pleural effusion is present. No pneumothorax. The pulmonary abnormalities are new compared to 01/02/2021. * There is a new finding of fluid attenuation projecting anterior to the left glenohumeral joint, probably within the subcoracoid bursa, and there is left axillary lymphadenopathy. In a patient with history of intravenous drug abuse and septic emboli, the possibility of infection at the left glenohumeral joint and/or bursal space is considered. * Cirrhotic liver, splenomegaly and ascites. Paracentesis Ultrasound 01/15/21 16:30 IMPRESSION: Ultrasound-guided paracentesis. Shoulder X-Ray 01/15/21 18:15 IMPRESSION: No acute abnormality. KUB X-Ray 01/16/21 02:54 IMPRESSION: Normal bowel gas pattern. Medications Medications Current Medications Clonidine HCl (Clonidine Hcl 0.1 Mg Tablet) 0.1 mg PO TID PRN; Protocol PRN Reason: anxiety/restlessness Last Admin: 01/15/21 21:23 Dose: 0.1 mg Documented by: Famotidine (Famotidine 20 Mg Tablet) 20 mg PO BID ALEX Last Admin: 01/16/21 07:59 Dose: 20 mg Documented by: Folic Acid (Folic Acid 1 Mg Tablet) 1 mg PO DAILY [facility] Stop: 01/18/21 08:59 Last Admin: 01/16/21 07:59 Dose: 1 mg Documented by: Heparin Sodium (Porcine) (Heparin Sodium,Porcine 5,000 Unit/Ml Vial) 5,000 unit SUBCUT Q8H [facility] Last Admin: 01/16/21 14:54 Dose: 5,000 unit Documented by: Hydromorphone HCl (Hydromorphone Hcl 0.5 Mg/0.5 Ml Syringe) 0.5 mg IVPUSH Q4H PRN; Protocol PRN Reason: Breakthrough Pain Last Admin: 01/16/21 08:14 Dose: 0.5 mg Documented by: Piperacillin Sod/Tazobactam (Sod 3.375 gm/ Sodium Chloride) 50 mls @ 100 mls/hr IV Q6H [facility] Last Infusion: 01/16/21 15:48 Dose: Infused Documented by: Albumin Human (Kedbumin 25 %) 100 mls @ 100 mls/hr IV Q6H [facility] Stop: 01/17/21 03:14 Last Infusion: 01/16/21 16:51 Dose: Infused Documented by: Albumin Human (Kedbumin 25 %) 100 mls @ 100 mls/hr IV Q1H [facility] Stop: 01/18/21 10:14 Vancomycin HCl 1,000 mg/ (Sodium Chloride) 270 mls @ 270 mls/hr IV Q8H [facility] Lorazepam (Lorazepam 1 Mg Tablet) 1 mg PO Q4H PRN PRN Reason: Breakthrough alcohol withdrawa Stop: 01/19/21 05:51 Melatonin (Melatonin 3 Mg Tablet) 6 mg PO BEDTIME PRN PRN Reason: Insomnia Methadone HCl (Methadone Hcl 20 Mg/2 Ml Oral.Conc) 5 mg PO ONCE ONE Stop: 01/16/21 18:01 Methadone HCl (Methadone Hcl 20 Mg/2 Ml Oral.Conc) 30 mg PO ONCE ONE Stop: 01/17/21 08:01 Multivitamins/Vitamin C (Multivitamin Tablet) 1 tab PO DAILY [facility] Stop: 01/18/21 08:59 Last Admin: 01/16/21 07:59 Dose: 1 tab Documented by: Oxycodone HCl (Oxycodone Hcl Immed Release 5 Mg Tablet) 5 mg PO Q4H PRN PRN Reason: Pain, Severe (Pain Scale 7-10) Last Admin: 01/16/21 01:53 Dose: 5 mg Documented by: Pharmacy Consult (Consult Rx Vancomycin Dosing) 1 each MISCELLANE DAILY PRN PRN Reason: Consult order Senna (Sennosides 8.6 Mg Tablet) 17.2 mg PO BEDTIME PRN PRN Reason: Constipation Simethicone (Simethicone 80 Mg Tab.Chew) 80 mg PO QIDWMHS PRN PRN Reason: Gas Last Admin: 01/16/21 05:36 Dose: 80 mg Documented by: Sodium Chloride (0.9 % Sodium Chloride Flush 3 Ml Syringe) 3 ml IVFLUSH QSHIFT [facility]LEX Last Admin: 01/16/21 15:54 Dose: 3 ml Documented by: Thiamine HCl (Thiamine Hcl 100 Mg Tablet) 100 mg PO DAILY [facility] Stop: 01/18/21 08:59 Last Admin: 01/16/21 07:59 Dose: 100 mg Documented by: Allergies Allergies Allergy/AdvReac Type Severity Reaction Status Date / Time No Known Allergies Allergy Verified 01/02/21 06:31 [No Known Allergies*] Assessment & Plan Assessment & Plan (1) Opioid use disorder: Status: Acute Code(s): F11.90 - Opioid use, unspecified, uncomplicated Assessment and Plan: Additional 5 mg of methadone later this evening (total of 30 mg today) * 35 mg a methadone ordered for tomorrow morning * Recovery support team to follow up in the morning I spent ___25___ minutes with the patient and/or on the patient floor today, gre ater than?50% of which was spent counseling/coordinating care.
[2021-01-16] MEDS: LORazepam 1 MG TABLET PO (23:47)
[2021-01-17] VITALS: PULSE 90
[2021-01-17] MEDS: vancomycin HCL 1,000 MG in 0.9 % Sodium Chloride 250 ML 270 MG IV ×2 (02:03→10:21)
[2021-01-17] MEDS: Albumin Human 25 % 100 ML IV (02:59)
[2021-01-17 03:29] VITALS: BP 126/72; PULSE 88; RESP 20; TEMP 36.8; O2SAT 96
[2021-01-17] MEDS: Piperacillin Sodium/Tazobactam 3.375 GM in 0.9 % Sodium Chloride 50 ML IV ×2 (03:57→09:26)
[2021-01-17] MEDS: Heparin Sodium,Porcine 5,000 UNIT/ML VIAL 5000 UNIT SUBCUT (06:30)
[2021-01-17 06:47] LABS: MANUAL DIFF FLAG NO
[2021-01-17 06:54] LABS: Basophils Percent Auto 0.1 % (0-2); Eosinophils Percent Auto 0.1 % (0-4); Hematocrit 33.1 % (42.0-52.0); Hemoglobin 11.1 g/dl (14.0-18.0); Imm Gran Abs Auto 0.55 X10*3/uL (0.00-0.03); Imm Gran Pct Auto 2.6 % (0.0-0.4); Lymphocytes Absolute Auto 1.1 X10*3/uL (1.2-4.9); Lymphocytes Percent Auto 5.2 % (20-40); Mean Corpuscular HGB Conc 33.5 g/dl (31.0-36.0); Mean Corpuscular Hemoglobin 28.8 pg (27.0-33.0); Mean Corpuscular Volume 85.8 fL (80.0-98.0); Mean Platelet Volume 8.3 fL (9.4-12.4); Monocytes Absolute Auto 0.5 X10*3/uL (0.1-1.2); Monocytes Percent Auto 2.4 % (2-11); Neutrophils Absolute Auto 18.9 x10*3/uL (2.0-8.3); Neutrophils Percent Auto 89.6 % (45-73); Platelet Count 153 X10*3/uL (160-400); Red Blood Count 3.86 X10*6/uL (4.60-5.80); Red Cell Distribution Width 14.6 % (11.0-16.0); White Blood Count 21.1 X10*3/uL (4.8-10.8)
[2021-01-17 06:56] LABS: INTERNATIONAL NORM RATIO 1.6 (0.9-1.1); Prothrombin Time 18.2 SEC (9.9-13.0)
[2021-01-17 07:12] LABS: Alanine Aminotransferase 19 U/L (0-40); Alkaline Phosphatase 63 U/L (39-117); Anion Gap 10 (12-20); Aspartate Amino Transferase 31 U/L (5-37); Bilirubin Total 1.6 mg/dL (0.0-1.0); Blood Urea Nitrogen 10 mg/dL (9-16); Calcium 7.6 mg/dL (8.4-10.2); Carbon Dioxide 27 mmol/L (22-29); Chloride 96 mmol/L (96-108); Creatinine Clr Calc Pharmacy 159.1; Estimated Glomerular Filt Rate > 60; Glucose Random 110 mg/dL (60-115); Sodium 130 mmol/L (135-145); Total Protein 5.9 g/dL (6.5-8.0)
[2021-01-17 08:00] VITALS: BP 150/82; PULSE 87; PULSE 90; RESP 18; TEMP 37.2; O2SAT 97
[2021-01-17] MEDS: Potassium Chloride ER 20 MEQ TAB.ER.PRT 40 MEQ PO (09:26)
[2021-01-17] MEDS: Multivitamin TABLET 1 TAB PO (09:27)
[2021-01-17] MEDS: Folic Acid 1 MG TABLET PO (09:27)
[2021-01-17] MEDS: 0.9 % Sodium Chloride Flush 3 ML SYRINGE IVFLUSH (09:27)
[2021-01-17] MEDS: Famotidine 20 MG TABLET PO (09:27)
[2021-01-17] MEDS: HYDROmorphone HCl 0.5 MG/0.5 ML SYRINGE IVPUSH (09:27)
[2021-01-17] MEDS: Thiamine HCL 100 MG TABLET PO (09:27)
[2021-01-17] MEDS: methADONE HCl 20 MG/2 ML ORAL.CONC 30 MG PO (09:27)
--- NOTE | 2021-01-17 11:33 | MHC.CLN ---
Addendum entered by Alice Syed, TIFFANIE 01/17/21 13:12: AGREE WITH PROVIDER'S ASSESSMENT BELOW Original Note: F/U DIET RX: REGULAR WITH 1500 MLS/DAY FLUID RESTRICTION-APPROPRIATE PO INTAKE DOCUMENTED 50% X 1 MEAL, 75% X 1 MEAL, 100% X 1 MEAL PT RECEIVING ENSURE SUPPLEMENT TID TO PROVIDE 1050 KCALS, 60 GRAMS PROTEIN, AND 540 ML TOTAL FREE WATER (FOR FLUID RESTRICTION) PT STATES HE HAS RECEIVED THE ENSURE SHAKES BUT HAS ONLY TAKEN A FEW SIPS MONITOR PO INTAKE CLOSELY
[2021-01-17 11:54] VITALS: BP 143/85; PULSE 89; RESP 18; TEMP 36.9; O2SAT 98
--- NOTE | 2021-01-17 13:01 | HO.PM.IMPN ---
Subjective Subjective Date of Service: 01/17/21 Interval History: withdrawal controlled c/o worsening abd distension no fever no cough no shoulder pain Review of Systems Review of Systems: Yes all other systems are reviewed and are negative Physical Exam Vital Signs: Vital Signs: Last Vital Signs Temp 98.5 F 01/17/21 11:54 Pulse 89 01/17/21 11:54 Resp 18 01/17/21 11:54 BP 143/85 H 01/17/21 11:54 Pulse Ox 98 01/17/21 11:54 Body Mass Index 19.2 Gen: disheveled HEENT: sclera anicteric, moist mucus membranes Neck: supple Lungs: clear to auscultation bilaterally Heart: regular rate and rhythm, no murmurs Abd: tense ascites present Ext: no edema Skin: erythema on ankles and feet Neuro: alert and oriented x3, no focal findings Psych: appropriate affect Objective Data Active Medications Clonidine HCl (Clonidine Hcl 0.1 Mg Tablet) 0.1 mg PO TID PRN; Protocol PRN Reason: anxiety/restlessness Last Admin: 01/15/21 21:23 Dose: 0.1 mg Documented by: SALINA Famotidine (Famotidine 20 Mg Tablet) 20 mg PO BID [facility] Last Admin: 01/17/21 09:27 Dose: 20 mg Documented by: SIMON Folic Acid (Folic Acid 1 Mg Tablet) 1 mg PO DAILY [facility] Stop: 01/18/21 08:59 Last Admin: 01/17/21 09:27 Dose: 1 mg Documented by: SIMON Heparin Sodium (Porcine) (Heparin Sodium,Porcine 5,000 Unit/Ml Vial) 5,000 unit SUBCUT Q8H [facility] Last Admin: 01/17/21 06:30 Dose: 5,000 unit Documented by: SALINA Hydromorphone HCl (Hydromorphone Hcl 0.5 Mg/0.5 Ml Syringe) 0.5 mg IVPUSH Q4H PRN; Protocol PRN Reason: Breakthrough Pain Last Admin: 01/17/21 09:27 Dose: 0.5 mg Documented by: SIMON Piperacillin Sod/Tazobactam (Sod 3.375 gm/ Sodium Chloride) 50 mls @ 100 mls/hr IV Q6H [facility] Last Infusion: 01/17/21 10:11 Dose: 0 mls/hr Documented by: SIMON Albumin Human (Kedbumin 25 %) 100 mls @ 100 mls/hr IV Q1H [facility] Stop: 01/18/21 10:14 Vancomycin HCl 1,000 mg/ (Sodium Chloride) 270 mls @ 270 mls/hr IV Q8H [facility] Last Infusion: 01/17/21 11:35 Dose: 0 mls/hr Documented by: SIMON Lorazepam (Lorazepam 1 Mg Tablet) 1 mg PO Q4H PRN PRN Reason: Breakthrough alcohol withdrawa Stop: 01/19/21 05:51 Last Admin: 01/16/21 23:47 Dose: 1 mg Documented by: SALINA Melatonin (Melatonin 3 Mg Tablet) 6 mg PO BEDTIME PRN PRN Reason: Insomnia Multivitamins/Vitamin C (Multivitamin Tablet) 1 tab PO DAILY [facility] Stop: 01/18/21 08:59 Last Admin: 01/17/21 09:27 Dose: 1 tab Documented by: SIMON Oxycodone HCl (Oxycodone Hcl Immed Release 5 Mg Tablet) 5 mg PO Q4H PRN PRN Reason: Pain, Severe (Pain Scale 7-10) Last Admin: 01/16/21 01:53 Dose: 5 mg Documented by: SALINA Pharmacy Consult (Consult Rx Vancomycin Dosing) 1 each MISCELLANE DAILY PRN PRN Reason: Consult order Senna (Sennosides 8.6 Mg Tablet) 17.2 mg PO BEDTIME PRN PRN Reason: Constipation Simethicone (Simethicone 80 Mg Tab.Chew) 80 mg PO QIDWMHS PRN PRN Reason: Gas Last Admin: 01/16/21 21:07 Dose: 80 mg Documented by: SALINA Sodium Chloride (0.9 % Sodium Chloride Flush 3 Ml Syringe) 3 ml IVFLUSH QSHIFT [facility] Last Admin: 01/17/21 09:27 Dose: 3 ml Documented by: SIMON Thiamine HCl (Thiamine Hcl 100 Mg Tablet) 100 mg PO DAILY [facility] Stop: 01/18/21 08:59 Last Admin: 01/17/21 09:27 Dose: 100 mg Documented by: SIMON Labs CBC & Chem 7: 01/17/21 05:40 01/17/21 05:40 Labs: Laboratory Results - last 24 hr 01/16/21 01/17/21 01/17/21 15:54 05:40 05:40 MCV 85.8 MCH 28.8 MCHC 33.5 RDW 14.6 Plt Count 153 L MPV 8.3 L Immature Gran % (Auto) 2.6 H Neut % (Auto) 89.6 H Lymph % (Auto) 5.2 L [place] % (Auto) 2.4 Eos % (Auto) 0.1 Baso % (Auto) 0.1 Lymph # (Auto) 1.1 L [place] # (Auto) 0.5 Eos # (Auto) 0.0 Baso # (Auto) 0.0 Abs Immat Gran (auto) 0.55 H Absolute Neuts (auto) 18.9 H Absolute Nucleated RBC 0.000 Nucleated RBC % (auto) 0.0 PT INR Anion Gap 10 L Estim Creat Clear Calc 159.1 Estimated GFR > 60 Random Glucose 110 Calcium 7.6 L D Magnesium 2.0 Total Bilirubin 1.6 H AST 31 ALT 19 Alkaline Phosphatase 63 D Total Protein 5.9 L Albumin 3.0 L D Vancomycin Trough 4.8 L 01/17/21 05:40 MCV MCH MCHC RDW Plt Count MPV Immature Gran % (Auto) Neut % (Auto) Lymph % (Auto) [place] % (Auto) Eos % (Auto) Baso % (Auto) Lymph # (Auto) [place] # (Auto) Eos # (Auto) Baso # (Auto) Abs Immat Gran (auto) Absolute Neuts (auto) Absolute Nucleated RBC Nucleated RBC % (auto) PT 18.2 H INR 1.6 H Anion Gap Estim Creat Clear Calc Estimated GFR Random Glucose Calcium Magnesium Total Bilirubin AST ALT Alkaline Phosphatase Total Protein Albumin Vancomycin Trough Microbiology Microbiology Results: Microbiology 01/15/21 16:13 Gram Stain - Final Ascites Fluid Anaerobic Culture - Preliminary Culture in progress. Body Fluid Culture - Preliminary Staphylococcus aureus 01/15/21 03:42 Blood Culture - Final Blood - Venous Methicillin Res Staph Aureus 01/15/21 03:05 Blood Culture - Final Blood - Venous Methicillin Res Staph Aureus Assessment and Plan (1) Ascites: Status: Acute (2) MRSA bacteremia: Status: Acute Assessment and Plan: hospital d#3 35yo M with ongoing JOSEFINA presenting with bilateral foot pain; recent ED visit during which MRSA bacteremia was diagnosted [01/02/21] but pt could not be contacted to be called back BCx still positive new-onset cirrhosis with ascites meeting criteria for SBP with 01066 WBCs, 86% of which are PMNs # MRSA bacteremia - vancomycin d#3, ID following, no vegetation on TTE though limited study, follow surveillance BCx from today, will need 42d of IV vancomycin after negative BCx # MRSA SBP - continue vancomycin d#3, d/c pip/yumiko. albumin yesterday and tomorrow. GI consulted # cirrhosis with ascites - repeat paracentesis today- therapeutic - start furosemide + spironolactone - HCV viral load pending [prior HCV treated/cured but has risk factors for re-infection]; HBV immune, HIV negative # septic pulmonary emboli - due to MRSA bacteremia # cellulitis of feet + hands - continue vancomycin # L glenohumeral/bursal fluid collection - not clinically consistent with septic arthritis # hypoNa - likely due to cirrhosis; . fluid restrict to 1500 mL/d. monitor electrolytes # LUQ hematoma - per Surgery , no intervention indicated # opioid use disorder - Addiction Medicine consulted, started on methadone - clonidine + prn lorazepam # EtOH abuse - prn CIWA # VTE ppx - UFH # dispo - once BCx clear, needs PICC line and STR Quality Stroke Does the patient have a stroke diagnosis?: No VTE Prior VTE?: No VTE Risk Level:: Medical - moderate - high VTE Device Contraindication: Treatment Not Indicated VTE Drug Contraindication: N/A - Med Ordered
--- NOTE | 2021-01-17 13:42 | MHC.CM.PN ---
per rounds wpt will be here over the weekend
--- NOTE | 2021-01-17 15:00 | PC.NURSE ---
Patient wanting to leave ama due to family issues. Patient educated on the severity of his medical condition and prognosis of leaving AMA without medical treatment. MD notified and at bedside to educated patient on risks and severity of leaving AMA including . Patient verbally stated he understood. IV removed from right IJ. Tele pack removed. AMA paper signed by patient. Patient states his ride will arrive in one hour.
--- NOTE | 2021-01-17 15:40 | PM.DS ---
DS: Providers Provider Date of Service: 01/17/21 Date of admission: 01/15/21 04:45 Primary care physician: Alberto Cole MD Consults: 01/15/21 04:45 Addiction Medicine Routine Consulting Provider: Elvira Chavez Reason for consultation: opiate abuse Consult to Infectious Diseases Routine Consulting Provider: Jannet Zurita Reason for consultation: bacteremia; IVDA 01/15/21 05:52 Consult to Gastroenterology Routine Consulting Provider: Keeley Terry Reason for consultation: new ascites/cirrhosis Consult to General Surgery Routine Consulting Provider: Almas Ventura Reason for consultation: LUQ hematoma 01/15/21 15:49 Consult to Orthopedics Routine Consulting Provider: [facility] [place] [facility] Reason for consultation: L shoulder septic arthritis/bursitis?? see CT. MRSA bacteremia DS: Diagnosis Discharge Diagnosis (1) Ascites: Status: Acute (2) MRSA bacteremia: Status: Acute (3) SBP (spontaneous bacterial peritonitis): Status: Acute (4) Cirrhosis: Status: Acute (5) Septic pulmonary embolism: Status: Acute (6) Hyponatremia: Status: Acute (7) Opioid use disorder: Status: Acute (8) Alcohol use disorder, severe, dependence: Status: Acute DS: Summary Hospital Course Hospital Course: from admission H+P by hospitalist Robin Mercedes, 01/15/21: 35-year-old male with a past medical history of IV drug abuse presented to the hospital today with a chief complaint of unable to ambulate secondary to pain in the bilateral feet. Patient reports that he was presented to the hospital 3 days ago with a chief complaint of left lateral lower rib chest wall pain; mentioned that he was leaning on to [employer] and felt a crack like sound and since then he has been having pain in the left lateral chest wall; presented to the ER [address] scan done which showed no acute findings; blood cultures were drawn during that visit; and subsequently discharged home. Patient mentions that he continues to take IV heroin; drinks alcohol but not since the pain in the chest wall. Denies tobacco use. Mentioned that his chest wall pain is continued to be worse at also has pain in both the feet limiting his ambulation; mentions that he has generalized body aches; denies any neck pain upper back or lower back pain; denies any specific spine pain.? Denies any fall or trauma. Denies any chest pain per se, palpitations, lightheadedness or dizziness. Denies any cough or sputum production. Review of all other systems is negative except mentioned above ER course: Per ER team patient appears to be homeless, living on the streets, uses heroin on a daily basis, on exam noted to have left ankle swollen and erythematous, and a concern for cellulitis; patient's blood cultures from couple days of also grew MRSA and patient was not able to reach prior to coming in today.? Patient was given IV vancomycin.? Admitted to the hospital for further management This 35yo M with ongoing JOSEFINA presented with bilateral foot pain. He had had a recent ED visit during which MRSA bacteremia was diagnosted [01/02/21] but could not be contacted to be called back. He was admitted with new-onset cirrhosis with ascites meeting criteria for SBP with 63991 WBCs, 86% of which are PMNs. Repeat blood cultures were positive for MRSA. Ascites grew MRSA. ID was consulted and he was treated with vancomycin with planned treatment of 42 days. He was given parenteral albumin supplementation. He was started on diuretics for ascites. He was relatively asymptomatic from the septic pulmonary emboli. He had a left glenohumeral/bursal fluid collection but had no symptoms consistent with septic arthritis. He had hyponatremia due to cirrhosis. He also was noted to have a LUQ hematoma from a rib fracture. He was started on methadone for opioid use disorder. Unfortunately, he decided to sign out AGAINST MEDICAL ADVICE on 01/17/21 despite counseling on the risks of untreated MRSA bacteremia. He was advised to return to the hospital as soon as possible. Time Spent with Patient Time attestation: Total time spent providing and/or coordinating discharge services: Discharge coordination time: Less than 30 minutes Quality: Stroke Does the patient have a stroke diagnosis?: No Physical Exam Vital Signs: Vital Signs: Last Vital Signs Temp 98.5 F 01/17/21 11:54 Pulse 89 01/17/21 11:54 Resp 18 01/17/21 11:54 BP 143/85 H 01/17/21 11:54 Pulse Ox 98 01/17/21 11:54 Body Mass Index 19.2 Gen: disheveled HEENT: sclera anicteric, moist mucus membranes Neck: supple Lungs: clear to auscultation bilaterally Heart: regular rate and rhythm, no murmurs Abd: tense ascites present Ext: no edema Skin: erythema on ankles and feet Neuro: alert and oriented x3, no focal findings Psych: appropriate affect DS: Data Data Completed and Pending Completed studies during hospitalization [Text1]: Laboratory Results WBC 21.1 X10*3/uL (4.8-10.8) H 01/17/21 05:40 RBC 3.86 X10*6/uL (4.60-5.80) L 01/17/21 05:40 Hgb 11.1 g/dl (14.0-18.0) L 01/17/21 05:40 Hct 33.1 % (42.0-52.0) L 01/17/21 05:40 MCV 85.8 fL (80.0-98.0) 01/17/21 05:40 MCH 28.8 pg (27.0-33.0) 01/17/21 05:40 MCHC 33.5 g/dl (31.0-36.0) 01/17/21 05:40 RDW 14.6 % (11.0-16.0) 01/17/21 05:40 Plt Count 153 X10*3/uL (160-400) L 01/17/21 05:40 MPV 8.3 fL (9.4-12.4) L 01/17/21 05:40 Immature Gran % (Auto) 2.6 % (0.0-0.4) H 01/17/21 05:40 Neut % (Auto) 89.6 % (45-73) H 01/17/21 05:40 Lymph % (Auto) 5.2 % (20-40) L 01/17/21 05:40 [place] % (Auto) 2.4 % (2-11) 01/17/21 05:40 Eos % (Auto) 0.1 % (0-4) 01/17/21 05:40 Baso % (Auto) 0.1 % (0-2) 01/17/21 05:40 Lymph # (Auto) 1.1 X10*3/uL (1.2-4.9) L 01/17/21 05:40 [place] # (Auto) 0.5 X10*3/uL (0.1-1.2) 01/17/21 05:40 Eos # (Auto) 0.0 X10*3/uL (0.0-0.4) 01/17/21 05:40 Baso # (Auto) 0.0 X10*3/uL (0.0-0.2) 01/17/21 05:40 Abs Immat Gran (auto) 0.55 X10*3/uL (0.00-0.03) H 01/17/21 05:40 Absolute Neuts (auto) 18.9 x10*3/uL (2.0-8.3) H 01/17/21 05:40 Absolute Nucleated RBC 0.000 X10*3/uL (0.0-0.012) 01/17/21 05:40 Nucleated RBC % (auto) 0.0 /100WBC (0.0-0.2) 01/17/21 05:40 Neutrophils % (Manual) 73 % (45-73) 01/15/21 02:55 Band Neutrophils % 17 % (3-5) H 01/15/21 02:55 Lymphocytes % (Manual) 6 % (20-40) L 01/15/21 02:55 Atypical Lymphs % (Man) 1 % (0-6) 01/15/21 02:55 Monocytes % (Manual) 3 % (2-11) 01/15/21 02:55 Abs Neuts (Manual) 23.5 X10*3/uL (2.0-8.3) H 01/15/21 02:55 Lymphocytes # (Manual) 1.6 X10*3/uL (1.2-4.9) 01/15/21 02:55 Atyp Lymphs # (Manual) 0.3 x10*3/uL 01/15/21 02:55 Monocytes # (Manual) 0.8 X10*3/uL (0.1-1.2) 01/15/21 02:55 Toxic Granulation PRESENT 01/15/21 02:55 Platelet Estimate NORMAL (NORMAL) 01/15/21 02:55 Plt Morphology Comment NORMAL 01/15/21 02:55 RBC Morphology NORMAL 01/15/21 02:55 Smear Tech's Comments VERIFIED 01/16/21 05:50 PT 18.2 SEC (9.9-13.0) H 01/17/21 05:40 INR 1.6 (0.9-1.1) H 01/17/21 05:40 Sodium 130 mmol/L (135-145) L 01/17/21 05:40 Potassium 3.0 mmol/L (3.3-5.1) L 01/17/21 05:40 Chloride 96 mmol/L (96-108) 01/17/21 05:40 Carbon Dioxide 27 mmol/L (22-29) 01/17/21 05:40 Anion Gap 10 (12-20) L 01/17/21 05:40 BUN 10 mg/dL (9-16) 01/17/21 05:40 Creatinine 0.53 mg/dL (0.5-1.4) 01/17/21 05:40 Estim Creat Clear Calc 159.1 01/17/21 05:40 Estimated GFR > 60 01/17/21 05:40 Random Glucose 110 mg/dL (60-115) 01/17/21 05:40 Lactic Acid 1.6 mmol/L (0.5-2.0) 01/15/21 02:55 Calcium 7.6 mg/dL (8.4-10.2) L D 01/17/21 05:40 Magnesium 2.0 mg/dL (1.6-2.6) 01/17/21 05:40 Total Bilirubin 1.6 mg/dL (0.0-1.0) H 01/17/21 05:40 Direct Bilirubin 1.0 mg/dL (0.0-0.5) H 01/15/21 02:55 AST 31 U/L (5-37) 01/17/21 05:40 ALT 19 U/L (0-40) 01/17/21 05:40 Alkaline Phosphatase 63 U/L (39-117) D 01/17/21 05:40 Total Protein 5.9 g/dL (6.5-8.0) L 01/17/21 05:40 Albumin 3.0 g/dL (3.5-5.0) L D 01/17/21 05:40 Peritoneal WBC 30.100 X10*3/uL 01/15/21 16:13 Peritoneal RBC 0.003 X10*6/uL 01/15/21 16:13 Periton Neutrophils 86 % 01/15/21 16:13 Periton Lymphocytes 4 % 01/15/21 16:13 Peritoneal Monocytes 9 % 01/15/21 16:13 Peritoneal Other Cells 1 % 01/15/21 16:13 Peritoneal Albumin 0.7 01/15/21 16:13 Vancomycin Trough 4.8 mcg/mL (10.0-20.0) L 01/16/21 15:54 COVID-19 (TAMRA) Negative (Negative) 01/15/21 02:55 COVID-19 Clin Com See Note 01/15/21 02:55 Hep Bs Antigen Negative (Negative) 01/15/21 10:02 Hep Bs Antibody REACTIVE (Nonreactive) 01/15/21 10:02 Hep B Core Total Ab Nonreactive (Nonreactive) 01/15/21 10:02 HIV 1&2 Ab/P24 Ag 4thGn Nonreactive (Nonreactive) 01/15/21 10:02 Impressions Venous Duplex 01/15/21 02:41 IMPRESSION: No DVT demonstrated in the bilateral lower extremity. Ankle X-Ray 01/15/21 04:40 IMPRESSION: Soft tissue swelling with probable ankle joint effusion. No osseous abnormality. Abdomen/Pelvis CT 01/15/21 05:20 IMPRESSION: 1. Cirrhotic liver with moderate volume ascites. Separate loculation of fluid along the left abdominal wall with mixed internal attenuation, concerning for hematoma. 2. New appearance of multifocal consolidative nodular opacities at both lung bases, likely with early cavitation. Given the previous clinical history this may represent septic emboli. This critical result was discussed with Robin Mercedes MD by telephone at 01/15/2021 5:49 AM and it was ascertained that the content and urgency of the report was understood at the time of direct communication. Chest CT 01/15/21 12:10 IMPRESSION: * Findings consistent with septic embolic disease and multilobar pneumonia. Trace left pleural effusion is present. No pneumothorax. The pulmonary abnormalities are new compared to 01/02/2021. * There is a new finding of fluid attenuation projecting anterior to the left glenohumeral joint, probably within the subcoracoid bursa, and there is left axillary lymphadenopathy. In a patient with history of intravenous drug abuse and septic emboli, the possibility of infection at the left glenohumeral joint and/or bursal space is considered. * Cirrhotic liver, splenomegaly and ascites. Shoulder X-Ray 01/15/21 18:15 IMPRESSION: No acute abnormality. KUB X-Ray 01/16/21 02:54 IMPRESSION: Normal bowel gas pattern. Pending studies at discharge: Pending at discharge 01/15/21 14:10 Cytology [PTH] Stat Discharge Plan Discharge Patient Disposition: Left Against Medical Advice Discharge Diagnosis: MRSA bacteremia/peritonitis return to hospital [facility] Referrals: Alberto Cole MD [Primary Care Provider] - 1 Week Discharge Medications: No Action No Known Home Meds RF: 0 Discharge Orders: Discharge Order (Routine); Ordered 01/17/21 Ordered By: Denice Russ Care Plan Goals: health Health Concerns: MRSA bacteremia/peritonitis, cirrhosis Plan of Treatment: return to hospital as soon as possible Assessment: See Discharge Summary
--- NOTE | 2021-01-17 15:44 | P.PNGS_ITS ---
Subjective Subjective Date of Service: 01/17/21 Interval history: Says he has pain all over Ascites worsening Paracentesis repeated Physical Exam Vital Signs: Vital Signs: Last Vital Signs Temp 98.5 F 01/17/21 11:54 Pulse 89 01/17/21 11:54 Resp 18 01/17/21 11:54 BP 143/85 H 01/17/21 11:54 Pulse Ox 98 01/17/21 11:54 Body Mass Index 19.2 Const: Other: Cachectic looking General: no acute distress Resp: Effort & Inspection: normal respiratory effort Cardio: Rhythm: regular rhythm GI: Other: Large ascites, no expanding hematoma or ecchymosis on the left side, tender diffusely, tender on the the lower ribcage Objective Data Active Medications Clonidine HCl (Clonidine Hcl 0.1 Mg Tablet) 0.1 mg PO TID PRN; Protocol PRN Reason: anxiety/restlessness Last Admin: 01/15/21 21:23 Dose: 0.1 mg Documented by: SALINA Famotidine (Famotidine 20 Mg Tablet) 20 mg PO BID ALEX Last Admin: 01/17/21 09:27 Dose: 20 mg Documented by: SIMON Folic Acid (Folic Acid 1 Mg Tablet) 1 mg PO DAILY ALEX Stop: 01/18/21 08:59 Last Admin: 01/17/21 09:27 Dose: 1 mg Documented by: SIMON Furosemide (Furosemide 40 Mg Tablet) 40 mg PO DAILY ALEX; Protocol Last Admin: 01/17/21 14:57 Dose: Not Given Documented by: SIMON Non-Admin Reason: leaving ama Heparin Sodium (Porcine) (Heparin Sodium,Porcine 5,000 Unit/Ml Vial) 5,000 unit SUBCUT Q8H ALEX Last Admin: 01/17/21 14:57 Dose: Not Given Documented by: SIMON Non-Admin Reason: leaving ama Hydromorphone HCl (Hydromorphone Hcl 0.5 Mg/0.5 Ml Syringe) 0.5 mg IVPUSH Q4H PRN; Protocol PRN Reason: Breakthrough Pain Last Admin: 01/17/21 09:27 Dose: 0.5 mg Documented by: SIMON Albumin Human (Kedbumin 25 %) 100 mls @ 100 mls/hr IV Q1H ALEX Stop: 01/18/21 10:14 Vancomycin HCl 1,000 mg/ (Sodium Chloride) 270 mls @ 270 mls/hr IV Q8H [facility] Last Infusion: 01/17/21 11:35 Dose: 0 mls/hr Documented by: SIMON Lorazepam (Lorazepam 1 Mg Tablet) 1 mg PO Q4H PRN PRN Reason: Breakthrough alcohol withdrawa Stop: 01/19/21 05:51 Last Admin: 01/16/21 23:47 Dose: 1 mg Documented by: SALINA Melatonin (Melatonin 3 Mg Tablet) 6 mg PO BEDTIME PRN PRN Reason: Insomnia Multivitamins/Vitamin C (Multivitamin Tablet) 1 tab PO DAILY ALEX Stop: 01/18/21 08:59 Last Admin: 01/17/21 09:27 Dose: 1 tab Documented by: SIMON Oxycodone HCl (Oxycodone Hcl Immed Release 5 Mg Tablet) 5 mg PO Q4H PRN PRN Reason: Pain, Severe (Pain Scale 7-10) Last Admin: 01/16/21 01:53 Dose: 5 mg Documented by: SALINA Pharmacy Consult (Consult Rx Vancomycin Dosing) 1 each MISCELLANE DAILY PRN PRN Reason: Consult order Senna (Sennosides 8.6 Mg Tablet) 17.2 mg PO BEDTIME PRN PRN Reason: Constipation Simethicone (Simethicone 80 Mg Tab.Chew) 80 mg PO QIDWMHS PRN PRN Reason: Gas Last Admin: 01/16/21 21:07 Dose: 80 mg Documented by: SALINA Sodium Chloride (0.9 % Sodium Chloride Flush 3 Ml Syringe) 3 ml IVFLUSH QSHIFT [facility] Last Admin: 01/17/21 09:27 Dose: 3 ml Documented by: SIMON Spironolactone (Spironolactone 25 Mg Tablet) 25 mg PO DAILY [facility]; Protocol Last Admin: 01/17/21 14:57 Dose: Not Given Documented by: SIMON Non-Admin Reason: leaving ama Thiamine HCl (Thiamine Hcl 100 Mg Tablet) 100 mg PO DAILY ALEX Stop: 01/18/21 08:59 Last Admin: 01/17/21 09:27 Dose: 100 mg Documented by: SIMON Labs CBC & Chem 7: 01/17/21 05:40 01/17/21 05:40 Labs: Laboratory Results - last 24 hr 01/16/21 01/17/21 01/17/21 15:54 05:40 05:40 MCV 85.8 MCH 28.8 MCHC 33.5 RDW 14.6 Plt Count 153 L MPV 8.3 L Immature Gran % (Auto) 2.6 H Neut % (Auto) 89.6 H Lymph % (Auto) 5.2 L [place] % (Auto) 2.4 Eos % (Auto) 0.1 Baso % (Auto) 0.1 Lymph # (Auto) 1.1 L [place] # (Auto) 0.5 Eos # (Auto) 0.0 Baso # (Auto) 0.0 Abs Immat Gran (auto) 0.55 H Absolute Neuts (auto) 18.9 H Absolute Nucleated RBC 0.000 Nucleated RBC % (auto) 0.0 PT INR Anion Gap 10 L Estim Creat Clear Calc 159.1 Estimated GFR > 60 Random Glucose 110 Calcium 7.6 L D Magnesium 2.0 Total Bilirubin 1.6 H AST 31 ALT 19 Alkaline Phosphatase 63 D Total Protein 5.9 L Albumin 3.0 L D Vancomycin Trough 4.8 L 01/17/21 05:40 MCV MCH MCHC RDW Plt Count MPV Immature Gran % (Auto) Neut % (Auto) Lymph % (Auto) [place] % (Auto) Eos % (Auto) Baso % (Auto) Lymph # (Auto) [place] # (Auto) Eos # (Auto) Baso # (Auto) Abs Immat Gran (auto) Absolute Neuts (auto) Absolute Nucleated RBC Nucleated RBC % (auto) PT 18.2 H INR 1.6 H Anion Gap Estim Creat Clear Calc Estimated GFR Random Glucose Calcium Magnesium Total Bilirubin AST ALT Alkaline Phosphatase Total Protein Albumin Vancomycin Trough Microbiology Microbiology Results: Microbiology 01/15/21 16:13 Gram Stain - Final Ascites Fluid Anaerobic Culture - Preliminary Culture in progress. Body Fluid Culture - Preliminary Staphylococcus aureus 01/15/21 03:42 Blood Culture - Final Blood - Venous Methicillin Res Staph Aureus 01/15/21 03:05 Blood Culture - Final Blood - Venous Methicillin Res Staph Aureus Procedures Date of Service Date of Service: 01/17/21 Progress Note: A&P Assessment and plan (1) Hematoma and contusion: Status: Acute Assessment and Plan: Has hematoma on the left flank, lower ribcage from blunt trauma No splenic injury on CT scan No expanding ecchymosis or hematoma on examination Hemoglobin stable Pain management No surgical intervention for this hematoma He does have worsening ascites Required paracentesis Being treated for SBP Also with septic emboli Fall Risk Details Current Medications: Current Medications Clonidine HCl (Clonidine Hcl 0.1 Mg Tablet) 0.1 mg PO TID PRN; Protocol PRN Reason: anxiety/restlessness Last Admin: 01/15/21 21:23 Dose: 0.1 mg Documented by: Famotidine (Famotidine 20 Mg Tablet) 20 mg PO BID [facility] Last Admin: 01/17/21 09:27 Dose: 20 mg Documented by: Folic Acid (Folic Acid 1 Mg Tablet) 1 mg PO DAILY ALEX Stop: 01/18/21 08:59 Last Admin: 01/17/21 09:27 Dose: 1 mg Documented by: Furosemide (Furosemide 40 Mg Tablet) 40 mg PO DAILY ALEX; Protocol Last Admin: 01/17/21 14:57 Dose: Not Given Documented by: Heparin Sodium (Porcine) (Heparin Sodium,Porcine 5,000 Unit/Ml Vial) 5,000 unit SUBCUT Q8H [facility] Last Admin: 01/17/21 14:57 Dose: Not Given Documented by: Hydromorphone HCl (Hydromorphone Hcl 0.5 Mg/0.5 Ml Syringe) 0.5 mg IVPUSH Q4H PRN; Protocol PRN Reason: Breakthrough Pain Last Admin: 01/17/21 09:27 Dose: 0.5 mg Documented by: Albumin Human (Kedbumin 25 %) 100 mls @ 100 mls/hr IV Q1H ALEX Stop: 01/18/21 10:14 Vancomycin HCl 1,000 mg/ (Sodium Chloride) 270 mls @ 270 mls/hr IV Q8H [facility] Last Infusion: 01/17/21 11:35 Dose: Infused Documented by: Lorazepam (Lorazepam 1 Mg Tablet) 1 mg PO Q4H PRN PRN Reason: Breakthrough alcohol withdrawa Stop: 01/19/21 05:51 Last Admin: 01/16/21 23:47 Dose: 1 mg Documented by: Melatonin (Melatonin 3 Mg Tablet) 6 mg PO BEDTIME PRN PRN Reason: Insomnia Multivitamins/Vitamin C (Multivitamin Tablet) 1 tab PO DAILY ALEX Stop: 01/18/21 08:59 Last Admin: 01/17/21 09:27 Dose: 1 tab Documented by: Oxycodone HCl (Oxycodone Hcl Immed Release 5 Mg Tablet) 5 mg PO Q4H PRN PRN Reason: Pain, Severe (Pain Scale 7-10) Last Admin: 01/16/21 01:53 Dose: 5 mg Documented by: Pharmacy Consult (Consult Rx Vancomycin Dosing) 1 each MISCELLANE DAILY PRN PRN Reason: Consult order Senna (Sennosides 8.6 Mg Tablet) 17.2 mg PO BEDTIME PRN PRN Reason: Constipation Simethicone (Simethicone 80 Mg Tab.Chew) 80 mg PO QIDWMHS PRN PRN Reason: Gas Last Admin: 01/16/21 21:07 Dose: 80 mg Documented by: Sodium Chloride (0.9 % Sodium Chloride Flush 3 Ml Syringe) 3 ml IVFLUSH QSHIFT ALEX Last Admin: 01/17/21 09:27 Dose: 3 ml Documented by: Spironolactone (Spironolactone 25 Mg Tablet) 25 mg PO DAILY ALEX; Protocol Last Admin: 01/17/21 14:57 Dose: Not Given Documented by: Thiamine HCl (Thiamine Hcl 100 Mg Tablet) 100 mg PO DAILY ALEX Stop: 01/18/21 08:59 Last Admin: 01/17/21 09:27 Dose: 100 mg Documented by: Time Spent With Patient Time: Total time spent is greater than 50% in coordination of care (as documented) at patient's floor/unit and/or counseling patient: Time with patient: 15 - 24 minutes Quality Stroke Does the patient have a stroke diagnosis?: No VTE Prior VTE?: No VTE Risk Level:: Medical - moderate - high VTE Device Contraindication: Treatment Not Indicated VTE Drug Contraindication: N/A - Med Ordered
--- NOTE | 2021-01-17 15:56 | MHC.CM.PN ---
pt leaving ama
--- NOTE | 2021-01-17 16:13 | MHC.RECOVRN ---
T/w made aware pt signed AMA paperwork. Briefly met with pt, encouraged pt to stay, educated regarding methadone titration and risks of leaving. Pt reports desire to return after taking care of some things. Pt escorted off unit in wheelchair. Elvira Chavez APRN, aware.
[2021-01-18 10:22] LABS: HCV Log PCR 5.44 Log IU/mL (NOT DETECTED); HepC Viral Load 274000 IU/mL (NOT DETECTED)
== END 2021-01-17 17:53 | disposition left against medical advice (07) | DRG 248 ==
LOC: HO.ED 03:54 → HO.EDOVER 04:53 → HO.IMC 15:44
PROVIDERS: Radiology Diagnostic Radiology; Admitting Provider Hospitalist; Emergency Provider Emergency Medicine; PCP Internal Medicine; Visit Provider Family Medicine
PROC: 0W9G3ZZ Drainage of Peritoneal Cavity, Percutaneous Approach (ICD-10-PCS; principal; 2021-01-15 12:00)
DX: K65.2 Spontaneous bacterial peritonitis (principal); I26.90 Septic pulmonary embolism without acute cor pulmonale; R78.81 Bacteremia; D68.9 Coagulation defect, unspecified; E87.1 Hypo-osmolality and hyponatremia; F11.20 Opioid dependence, uncomplicated; L03.115 Cellulitis of right lower limb; S20.212A Contusion of left front wall of thorax, initial encounter; R18.8 Other ascites; K74.60 Unspecified cirrhosis of liver; L03.116 Cellulitis of left lower limb; D72.829 Elevated white blood cell count, unspecified; L03.114 Cellulitis of left upper limb; W18.30XA Fall on same level, unspecified, initial encounter; L03.113 Cellulitis of right upper limb; F17.210 Nicotine dependence, cigarettes, uncomplicated; Z71.6 Tobacco abuse counseling; E87.6 Hypokalemia; M25.512 Pain in left shoulder; M25.412 Effusion, left shoulder; H60.91 Unspecified otitis externa, right ear; B95.62 Methicillin resistant Staphylococcus aureus infection as the cause of diseases classified elsewhere; Z59.02 Unsheltered homelessness; Z20.822 Contact with and (suspected) exposure to COVID-19; Z79.899 Other long term (current) drug therapy
CPT/HCPCS: 36415; 49083; 71250; 73030; 73610; 74018; 74176; 76705; 80048; 80053; 80076; 80202; 82042; 83605; 83735; 85007; 85025; 85027; 85610; 86704; 86706; 87040; 87070; 87073; 87077; 87147; 87186; 87205; 87340; 87389; 87522; 87635; 88112; 88305; 89051; 93306; 93970; 96361; 96365; 96375; 99285; J1170; J2543; J3370; P9047

== ENCOUNTER 2021-01-17 19:38 | Inpatient (IN) | payer OTHER, SELFPAY ==
--- NOTE | ~2021-01-17 | US_ITS ---
EXAMINATION: U S GUIDED PARACENTESIS CLINICAL INFORMATION: Ascites. COMPARISON: CT scan of 01/23/2021 and ultrasound of 01/22/2021 TECHNIQUE: Ultrasound-guided paracentesis. FINDINGS: On review of imaging, there are noted to be loculated fluid collections within the abdomen with some of the collections demonstrating stationary echoes consistent with gelatinous material. There was noted to be a slightly lower density region within the right upper quadrant and, therefore, this region was targeted. Informed consent was obtained from the patient prior to the procedure. During this process, the procedure and potential alternatives were explained, along with the intended outcome and benefits. The risks of the procedure, as well as the risk of not doing the procedure, were discussed. The patient was given the opportunity to ask questions regarding the procedure and appeared competent to make medical decisions. A signed consent form which documents this discussion was placed in the medical record. Using sterile technique and ultrasound guidance, a 5-Omani Yueh needle was directed into the right upper quadrant fluid collection. A total of 3.1 L of serosanguineous fluid was removed. Patient tolerated the procedure without difficulty. US/US paracentesis abd w/image IMPRESSION: Paracentesis right upper quadrant, as described.
--- NOTE | ~2021-01-17 | XR_ITS ---
EXAMINATION: XR CHEST CLINICAL INFORMATION: Shortness of breath. COMPARISON: CT chest dated from 01/15/2021. Chest radiograph dated from 01/02/2021. TECHNIQUE: AP view of the chest was obtained. FINDINGS: Multifocal airspace opacities. Mild asymmetric elevation of left hemidiaphragm. Small left pleural effusion. Unchanged cardiomediastinal silhouette. No acute osseous findings. XR/XR chest 1V IMPRESSION: Multifocal airspace opacities are new/increased when compared to the chest radiograph from 01/02/2021 and correlate with septic emboli disease and multifocal pneumonia noted on the CT from 01/15/2021. Small left pleural effusion.
--- NOTE | ~2021-01-17 | US_ITS ---
EXAMINATION: ULTRASOUND ABDOMINAL DUPLEX ARTERIAL AND VENOUS CLINICAL INFORMATION: Evaluate patency of the portal vein and IVC COMPARISON: Previous exams most recent January 21 and 01/22/2021 TECHNIQUE: Doppler color and grayscale evaluation of the liver vessels FINDINGS: There is still partially occlusive thrombus seen in the main portal vein. This is similar to previous exams. There is appropriate hepatopedal flow seen in the main, right and left portal veins. The splenic vein is patent. The middle, right and left hepatic veins are patent and demonstrate normal waveforms. The visualized IVC is patent. Hepatic artery is patent and demonstrates normal peak systolic velocity 140 cm/s. The spleen is enlarged and measures 16.8 cm. There is a small amount of complex ascites with multiple septations. US/US duplex arterial venous comp IMPRESSION: Partially occlusive thrombus in the main portal vein similar to previous exams. There is appropriate hepatopedal flow.
--- NOTE | ~2021-01-17 | XR_ITS ---
EXAMINATION: XR ABDOMEN KUB CLINICAL INDICATION: Abdominal pain. Assess for obstruction. COMPARISON: CT abdomen and pelvis noncontrast 01/15/2021. TECHNIQUE: 4 views of the abdomen. FINDINGS: There is gaseous distention of the bowel, increased since CT 01/15/2021. The transverse colon is 9 cm in diameter and there is distended mid small bowel loop measuring 4.8 cm diameter. There is no thumbprinting or pneumatosis or visible free air. The distal descending and sigmoid colon are nondistended. There is moderate stool in the cecum. Airspace opacities seen left retroareolar cardiac region likely related to the cavitary lesion on CT. XR/XR KUB IMPRESSION: Increased gaseous distention large and small bowel since CT 01/15/2021. Distal descending and sigmoid colon nondistended.
--- NOTE | ~2021-01-17 | US_ITS ---
EXAMINATION: DUPLEX ULTRASOUND EVALUATION OF THE ABDOMEN CLINICAL INFORMATION: Patency of the portal venous/IVC system COMPARISON: January 21, 2021 TECHNIQUE: Real-time ultrasound and Doppler techniques (integrating B-mode 2D vascular images, Doppler spectral analysis and color flow Doppler imaging) were utilized to interrogate the visceral vessels of the portal venous system and IVC. FINDINGS: The extrahepatic portal vein is not identified. The main portal vein appears partially thrombosed but with hepatopedal flow by Doppler evaluation. The right portal vein is partially thrombosed with trickle flow evident in hepatopedal direction. The left portal vein is patent with hepatopedal flow. The main hepatic artery has antegrade flow with a peak soft velocity of 162 cm/s. There is antegrade flow seen within the right hepatic artery. The left hepatic artery is not identified. The hepatic veins are patent with normal waveforms and direction. US/US duplex arterial venous comp IMPRESSION: Partial portal vein occlusive disease with hepatopedal flow still noted. Patent hepatic artery. Hepatic veins appear unremarkable.
--- NOTE | ~2021-01-17 | US_ITS ---
PROCEDURE: ULTRASOUND-GUIDED PARACENTESIS CLINICAL INFORMATION: Ascites. COMPARISON: 01/20/2021 and 01/15/2021. TECHNIQUE: Ultrasound-guided paracentesis. FINDINGS: Informed consent was obtained from the patient prior to the procedure. During this process, the procedure and potential alternatives were explained, along with the intended outcome and benefits. The risks of the procedure, as well as the risk of not doing the procedure, were discussed. The patient was given the opportunity to ask questions regarding the procedure and appeared competent to make medical decisions. A signed consent form which documents this discussion was placed in the medical record. Initial scanning of the abdomen demonstrates a moderate amount of free fluid within the pelvis but with echogenic regions within it which are stable in positioning and consistent with complex fluid which is gelatinous. Using ultrasound guidance and sterile technique a 5 Hungarian Yueh needle was directed into the right pelvis. A total of 2.2 L of clear karen fluid was removed with some remaining loculated fluid being present at the end of the procedure. Patient tolerated procedure without difficulty. US/US paracentesis abd w/image IMPRESSION: Complex ascites with portions appearing to be gelatinous in nature. Aspiration of 2.2 L of clear karen-colored fluid.
--- NOTE | ~2021-01-17 | XR_ITS ---
EXAMINATION: XR ABDOMEN KUB CLINICAL INDICATION: Worsening abdominal pain. COMPARISON: 01/23/21. TECHNIQUE: AP view of the abdomen. FINDINGS: Moderate gaseous dilatation of the transverse colon and small bowel loops in the upper abdomen is again demonstrated and slightly improved. No new abnormality. XR/XR KUB IMPRESSION: Dilated bowel loops slightly improved.
--- NOTE | ~2021-01-17 | US_ITS ---
EXAMINATION: ULTRASOUND-GUIDED PARACENTESIS CLINICAL INFORMATION: Ascites and abdominal pain. COMPARISON: Ultrasound abdomen 01/24/2021. TECHNIQUE: Following explaining ultrasound-guided paracentesis procedure, benefits and risks, a written consent was obtained. Patient was placed supine on ultrasound stretcher and preliminary ultrasound imaging was obtained throughout the abdomen. An optimal site was selected along the right lower quadrant and left lower quadrant and both areas were prepped and draped in the usual sterile manner. 1% lidocaine was injected initially in the right lower quadrant followed by left lower quadrant. Through a small skin incision, a 5 Azeri Informativeeh catheter was advanced into the right lower quadrant fluid collection followed by left lower quadrant fluid collection. After observing fluid return, catheter was connected in two separate vacuum bottles at the same time. Postprocedure catheter was withdrawn and complete hemostasis was achieved at the puncture site. Sterile dressing was applied postprocedure. FINDINGS: On preliminary ultrasound imaging, there is significant loculation of fluid seen throughout the midabdomen and lower abdomen. The abdomen appears tense. Minimal free fluid is seen in the right and left flanks. Approximately 300 mL of dark reddish gelatinous fluid drained from the right lower quadrant and 400 mL of similar fluid was drained from the left lower quadrant. No additional fluid could be withdrawn. US/US paracentesis abd w/image IMPRESSION: Successful ultrasound-guided paracentesis performed with a total of 700 mL of fluid drained from the right and left lower quadrants. On ultrasound imaging, there is significant loculation of fluid, limiting drainage. Similar findings were seen on previous ultrasound paracentesis exam.
--- NOTE | ~2021-01-17 | US_ITS ---
EXAMINATION: ULTRASOUND DUPLEX ABDOMEN CLINICAL INFORMATION: Cirrhosis and ascites. Evaluate portal vein and IVC patency COMPARISON: Previous CT of the abdomen and pelvis without contrast from earlier this month TECHNIQUE: Doppler color and grayscale evaluation of the liver vessels including waveform spectral analysis. FINDINGS: Exam is very limited. There appears to be nonocclusive thrombus seen in the main portal vein. There is appropriate hepatopedal flow seen in the main portal vein. There are prominent surrounding periportal vessels questionable for developing collaterals. The right and left portal veins in the liver appear patent. The extrahepatic main is not visualized. The intrahepatic IVC is patent. This has an abnormal waveform with loss of phasicity or monophasic appearing waveform. The middle right and left hepatic veins were not imaged. The main hepatic artery is patent. This has a normal peak systolic velocity of 60 cm/s. Liver appears cirrhotic. There is ascites. US/US duplex arterial venous comp IMPRESSION: Very limited exam. There appears to be nonocclusive thrombus in the main portal vein. Prominent portal vessels questionable for developing collateral vessels. The intrahepatic IVC is patent but has an abnormal monophasic waveform. Cirrhosis and ascites. Repeat imaging following paracentesis should be considered.
--- NOTE | ~2021-01-17 | CT_ITS ---
EXAMINATION: CT ABDOMEN AND PELVIS WITHOUT CONTRAST CLINICAL INFORMATION: Bowel obstruction versus ileus. COMPARISON: KUB 01/23/2021 TECHNIQUE: Multidetector volumetric imaging was performed from the superior aspect of the liver through the pubic symphysis. Sagittal and coronal reformatted images were obtained on the technologist's workstation. This CT examination was performed using dose optimization techniques as appropriate, variously including the following: *Automated exposure control *Adjustment of mA and/or kV according to patient size (this includes techniques or standardized protocols for targeted exams where dose is matched to indication/reason for exam; i.e. extremities or head) *Use of iterative reconstruction technique DLP: 462 mGy-cm FINDINGS: LUNG BASES: There is bilateral lower lobe consolidation/atelectasis. There is a right middle lobe airspace consolidation as well. There are two 3 mm nodules right lower lobe, axial image 5/7. 4 mm subpleural nodule is seen in left lower lobe, axial image 10/7. The heart size is normal. LIVER, GALLBLADDER, AND BILIARY TREE: The liver is small with a lobulated contour with normal density. There is diffuse ascites. The gallbladder is distended with radiopaque dependent 4 mm radiopaque calculi. No additional radiopaque calculi seen. PANCREAS: Unremarkable. SPLEEN: Unremarkable. ADRENAL GLANDS: Unremarkable. KIDNEYS AND URETERS: The kidneys are normal in size, shape, and attenuation. No hydronephrosis, hydroureter, or calculi seen. No perinephric stranding. BLADDER: Unremarkable. GASTROINTESTINAL TRACT: There is gaseous distention of transverse colon with scattered stool in the right colon. The left colon is decompressed. The small bowel loops appear to be normal caliber. ABDOMINAL WALL: No significant hernia is appreciated. LYMPH NODES: Normal. VASCULAR: Unremarkable. PELVIC VISCERA: There is moderate to significant free fluid. OSSEOUS STRUCTURES: Unremarkable. CT/CT abdomen pelvis wo con IMPRESSION: Cirrhosis with diffuse ascites. Moderate constipation. No obstruction, free air. Mild gaseous distention of colon. Bilateral lower lobe consolidations with small pleural effusions and adjacent right middle lobe and lingular atelectasis/scarring.
--- NOTE | ~2021-01-17 | US_ITS ---
EXAMINATION: ULTRASOUND-GUIDED PARACENTESIS CLINICAL INFORMATION: Ascites. Spontaneous bacterial peritonitis. COMPARISON: Previous exams, most recent 01/17/2021. TECHNIQUE: Procedure and risks and benefits including bleeding, infection and low blood pressure were discussed with the patient and informed consent was obtained. The right lower quadrant was prepped and draped in the usual sterile fashion. The skin and soft tissues were anesthetized with 1% lidocaine plain. Using ultrasound guidance and a 5 Occitan rapid centesis catheter, access to the ascitic fluid was obtained. 7.6 L of karen-colored fluid was removed. Diagnostic specimen was sent. Patient received intravenous albumin procedure. FINDINGS: There is a large amount of ascites. US/US paracentesis abd w/image IMPRESSION: Ultrasound-guided paracentesis.
[2021-01-17 19:59] VITALS: BP 127/70; BP 135/82; PULSE 115; PULSE 116; RESP 12; TEMP 36.3; O2SAT 97; O2SAT 98; BMI 19.2
--- NOTE | 2021-01-17 20:11 | ED.AMS ---
HPI - Altered Mental Status General Chief Complaint: Abdominal Pain Stated Complaint: HIP PAIN Time Seen by Provider: 01/17/21 19:59 Source: patient and EMS Mode of arrival: EMS Limitations: no limitations History of Present Illness HPI narrative: Patient 35 years old with history of heroin IVDA use was admitted here on 01/15 left AMA today at 16:00 as he had to go to see his daughter but was found semi responsive in [employer] bathroom clinically patient seems to be under influence of opiates but patient denied. To signs of injury. Patient was admitted with a diagnosis of MRSA bacteremia MRSA spontaneous Felipe peritonitis cirrhosis and ascites with septic pulmonary emboli on vancomycin and Zosyn received for 3 days Related Data Home Medications Medication Instructions Recorded Confirmed No Known Home Meds 01/15/21 01/15/21 Allergies Allergy/AdvReac Type Severity Reaction Status Date / Time No Known Allergies Allergy Verified 01/02/21 06:31 [No Known Allergies*] Review of Systems Review of Systems: Yes all other systems are reviewed and are negative PMFSH Past Medical History Medical History Hematoma and contusion IV drug user Social History Social History Household Members: None Housing: Homeless Do you presently have visiting nurse or other home services: No Alcohol intake: current Alcohol intake frequency: 3 or more drinks per day Alcohol type: beer Patient Tobacco Use Status: Current someday Tobacco user Tobacco use type: Cigarette e-Cigarette/Vaping Use: Never Used Use of substances other than those prescribed or required for medical reasons: Yes Substance Use Type: Crack/Cocaine and Heroin Advance Directives: No service: No Physical Exam Vital Signs: Vital Signs: Last Vital Signs Temp 97.4 F 01/17/21 19:59 Pulse 103 H 01/17/21 22:01 Resp 25 H 01/17/21 22:01 BP 157/82 H 01/17/21 22:01 Pulse Ox 98 01/17/21 22:01 Body Mass Index 19.2 Appearance: Alert. Oriented X3. Lethargic following sleep emaciated unkept patient Eyes: Pupil 2 mm bilateral, No Nystagmus ENT: Pharynx normal. Oral Mucosa moist Neck: Normal inspection. Neck supple. CVS: Normal heart rate and rhythm. Pulses normal. Respiratory: No respiratory distress. Equal air entry bilateral, bilateral crackles diffuse Abdomen: Soft , distended gaseous + Bowel sounds are present, no mass palpable, no CVA tenderness Skin: Skin warm and dry. Normal skin color. Normal skin turgor. Extremities: No lower extremity edema. No calf tenderness, IV track ibrahim bilateral forearm Neuro: Oriented X 3. No motor deficit. Course Reevaluation(s) Reevaluation #1: Patient under influence of opiate falling asleep pulse ox dropped to 90% with shallow breathing 4 mg of Narcan intranasally was given Time: 20:42 MDM - Altered Mental Status MDM Narrative Medical decision making narrative: Patient with sepsis with leukocytosis, MRSA bacteremia with lactic acidosis received IV fluids more than 30 cc/kilogram of vancomycin and Zosyn was also give patient will admit medical service ID to follow Medical Records Attestation: I reviewed the patient's medical records. Lab Data Attestation: I reviewed the patient's lab results. Result diagrams: 01/17/21 20:40 01/17/21 21:37 Discharge Plan Discharge Clinical Impression: MRSA bacteremia, Opioid use disorder, SBP (spontaneous bacterial peritonitis) Septic pulmonary embolism Qualifiers: Chronicity: acute Acute cor pulmonale presence: without acute cor pulmonale Qualified Code(s): I26.90 - Septic pulmonary embolism without acute cor pulmonale Patient Disposition: Admitted As Inpatient
--- NOTE | 2021-01-17 20:42 | P.HPHOSP_ITS ---
History of Present Illness Date of Service: 01/17/21 35-year-old male with a past medical history of IV drug abuse presented to the hospital with a chief complaint of bilateral foot and hand pain on ; admitted to the hospital for cellulitis. Also noted to have MRSA bacteremia/liver cirrhosis/ascites/SBP/septic pulmonary emboli/left upper quadrant hematoma/opiate opiate withdrawal; patient left against medical advice on 01/17/2021 mentioning that he wanted to see his daughter and presented back again to the hospital to continue his treatment. Patient denies using heroin after he left the hospital; complains of generalized body aches. Denies any chest pain or palpitations. Denies shortness of breath. Denies any spine pain. Review of all other systems is negative except mentioned above ER course: Per ER team there was a concern in the patient used after he left the hospital, also concern of the patient had a fall at the store-patient denies any fall, loss of consciousness, using drugs. Lab showed severe leukocytosis WBC of 51; exam was nonfocal; followed by while in the ER patient's respiratory rate went down to 6-patient was given a dose of Narcan with improvement in symptoms. Admitted to the hospital for further management PMFSH Medical History Hematoma and contusion IV drug user Social History Household Members: None Housing: Homeless Do you presently have visiting nurse or other home services: No Alcohol intake: current Alcohol intake frequency: 3 or more drinks per day Alcohol type: beer Patient Tobacco Use Status: Current someday Tobacco user Tobacco use type: Cigarette e-Cigarette/Vaping Use: Never Used Use of substances other than those prescribed or required for medical reasons: Yes Substance Use Type: Crack/Cocaine and Heroin Advance Directives: No service: No Meds Allergies Allergy/AdvReac Type Severity Reaction Status Date / Time No Known Allergies Allergy Verified 01/02/21 06:31 [No Known Allergies*] Active Medications: Current Medications Acetaminophen (Acetaminophen 325 Mg Tablet) 650 mg PO Q6H PRN PRN Reason: Pain, Mild (Pain Scale 1-3) Heparin Sodium (Porcine) (Heparin Sodium,Porcine 5,000 Unit/Ml Vial) 5,000 unit SUBCUT Q8H ALEX Hydromorphone HCl (Hydromorphone Hcl 0.5 Mg/0.5 Ml Syringe) 0.5 mg IVPUSH Q4H PRN; Protocol PRN Reason: Breakthrough Pain Vancomycin HCl 1,000 mg/ (Sodium Chloride) 270 mls @ 270 mls/hr IV ONCE ONE Stop: 01/17/21 21:15 Piperacillin Sod/Tazobactam (Sod 3.375 gm/ Sodium Chloride) 50 mls @ 100 mls/hr IV ONCE ONE Stop: 01/17/21 20:45 Sodium Chloride (Ns) 1,000 mls @ 999 mls/hr IVCONT .Q1H1M ALEX Stop: 01/17/21 21:30 Sodium Chloride (Ns) 1,000 mls @ 999 mls/hr IVCONT .Q1H1M ALEX Stop: 01/17/21 21:45 Sodium Chloride (Ns) 1,000 mls @ 100 mls/hr IVCONT .Q10H ALEX Vancomycin HCl 1,000 mg/ (Sodium Chloride) 270 mls @ 270 mls/hr IV Q24H ALEX Piperacillin Sod/Tazobactam (Sod 3.375 gm/ Sodium Chloride) 50 mls @ 100 mls/hr IV Q6H ALEX Melatonin (Melatonin 3 Mg Tablet) 6 mg PO BEDTIME PRN PRN Reason: Insomnia Oxycodone HCl (Oxycodone Hcl Immed Release 5 Mg Tablet) 5 mg PO Q6H PRN PRN Reason: Pain, Severe (Pain Scale 7-10) Pharmacy Consult (Consult Rx Vancomycin Dosing) 1 each MISCELLANE DAILY PRN PRN Reason: Consult order Pharmacy Consult (Consult Rx Perform Med Rec) 1 each MISCELLANE ONCE STA Stop: 01/17/21 20:42 Senna (Sennosides 8.6 Mg Tablet) 17.2 mg PO BEDTIME PRN PRN Reason: Constipation Sodium Chloride (0.9 % Sodium Chloride Flush 3 Ml Syringe) 3 ml IVFLUSH QSHIFT [facility] Home Medications Medication Instructions Recorded Confirmed Last Taken Type No Known Home Meds 01/15/21 01/15/21 Unknown History Physical Exam Vital Signs and Narrative: Vital Signs: Last Vital Signs Temp 97.4 F 01/17/21 19:59 Pulse 116 H 01/17/21 19:59 Resp 12 01/17/21 19:59 BP 135/82 01/17/21 19:59 Pulse Ox 98 01/17/21 19:59 Body Mass Index 19.2 Results Labs CBC and Chem 7: 01/17/21 20:40 01/17/21 21:37 Assessment and Plan (1) Septic pulmonary embolism: Status: Acute (2) Cirrhosis: Status: Acute (3) Alcohol use disorder, severe, dependence: Status: Acute (4) Opioid use disorder: Status: Acute (5) MRSA bacteremia: Status: Acute (6) Hematoma and contusion: Status: Acute 35-year-old male with a past medical history of IV drug abuse presented to the hospital with a chief complaint of bilateral foot and hand pain on ; admitted to the hospital for cellulitis. Also noted to have MRSA bacteremia/liver cirrhosis/ascites/SBP/septic pulmonary emboli/left upper quadrant hematoma/opiate opiate withdrawal; patient left against medical advice on 01/17/2021 mentioning that he wanted to see his daughter and presented back again to the hospital to continue his treatment. Septic pulmonary emboli/ Cellulitis/MRSA bacteremia: Patient on IV vancomycin. Id consult. SBP: Patient on IV Zosyn. Lactic acidosis: Gentle IV fluids Cirrhosis/ascites: Patient was on Lasix/Aldactone-> will hold for now given lactic acidosis. GI consulted. Hep C viral load pending. GI consulted Severe leukocytosis: Question leukemoid reaction from infection versus other pathology. Will consult Hematology for further recommendations. Left glenohumeral/bursal fluid collection: Not clinically consistent with septic arthritis. Seen by Orthopedics. Hyponatremia: In the setting of fluid overload from cirrhosis. Patient on flui d restriction at 1500 cc per day. Left upper quadrant hematoma: Seen by General surgery. No intervention recommended. Opiate dependence: Addiction Medicine consulted. Monitor for withdrawal symp toms. DVT prophylaxis: SCD boots Code status: Full code Quality Stroke Does the patient have a stroke diagnosis?: No VTE Prior VTE?: No VTE Risk Level:: Medical - moderate - high VTE Device Contraindication: Treatment Not Indicated VTE Drug Contraindication: N/A - Med Ordered
[2021-01-17 20:47] LABS: Mean Corpuscular HGB Conc 33.3 g/dl (31.0-36.0)
[2021-01-17 20:53] LABS: Hematocrit 39.3 % (42.0-52.0); Hemoglobin 13.1 g/dl (14.0-18.0); Mean Corpuscular Hemoglobin 29.2 pg (27.0-33.0); Mean Corpuscular Volume 87.7 fL (80.0-98.0); Mean Platelet Volume 8.2 fL (9.4-12.4); Platelet Count 243 X10*3/uL (160-400); Red Blood Count 4.48 X10*6/uL (4.60-5.80)
[2021-01-17] MEDS: Naloxone HCl Nasal 4 MG SPRAY NOSTRILALT (20:55)
[2021-01-17 20:56] LABS: WBC ABN SCTR FOR CBC 1
[2021-01-17 20:59] LABS: White Blood Count 51.6 X10*3/uL (4.8-10.8)
[2021-01-17] MEDS: Piperacillin Sodium/Tazobactam 3.375 GM in 0.9 % Sodium Chloride 50 ML IV (21:00)
[2021-01-17 21:09] LABS: Lactic Acid 2.7 mmol/L (0.5-2.0)
[2021-01-17] MEDS: oxyCODONE HCl Immed Release 5 MG TABLET PO (21:10)
[2021-01-17] MEDS: Heparin Sodium,Porcine 5,000 UNIT/ML VIAL 5000 UNIT SUBCUT (21:10)
--- NOTE | 2021-01-17 21:16 | PHA.PROG ---
Admission Date/Time: January 17, 2021 20:36 Indication: Weight in k.967 kg Vancomycin Loading Dose: 1500MG Current Vancomycin Dosing Regimen: 1000Q8 Vancomycin Monitoring using AUC goal of 400 - 600 range with trough as surrogate marker: 446 Date and Time for next Vancomycin Level to be drawn:01/18 @ 2100 Pharmacist Comments on Vancomycin Plan: PATIENT LEFT AMA BUT RETURNED. RELOADED AND STARTED ON PREVIOUS THERAPY Vancomycin dosing will take advantage of [employer] as a clinical decision support tool that uses Bayesian modeling to calculate individual patient's pharmacokinetic parameters and forecast the patient's drug concentration time course with the target goal AUC 24 range of 400 - 600 mg/L/hr.
[2021-01-17 21:20] LABS: Band Neutrophils Percent 9 % (3-5); Lymphocytes Percent Manual 2 % (20-40); Neutrophils Absolute Manual 50.6 X10*3/uL (2.0-8.3); Neutrophils Percent Manual 89 % (45-73)
[2021-01-17 21:21] LABS: Polychromasia 1+ (0-2) /OIF
[2021-01-17 21:22] LABS: RBC Morphology NOTED
[2021-01-17 21:23] LABS: Burr Cells 1+ (0-2) /OIF
[2021-01-17 21:24] LABS: Platelet Estimate NORMAL (NORMAL); Platelet Morphology Comment NORMAL
[2021-01-17] MEDS: 0.9 % Sodium Chloride 1,000 ML 999 ML IVCONT (21:42)
[2021-01-17] MEDS: vancomycin HCL 1,500 MG in 0.9 % Sodium Chloride 500 ML 333.33 MG IV (21:42)
[2021-01-17 21:55] LABS: Anion Gap 16 (12-20); Blood Urea Nitrogen 15 mg/dL (9-16); Calcium 8.3 mg/dL (8.4-10.2); Carbon Dioxide 23 mmol/L (22-29); Chloride 97 mmol/L (96-108); Creatinine Clr Calc Pharmacy 117.1; Estimated Glomerular Filt Rate > 60; Glucose Random 103 mg/dL (60-115); Potassium 4.1 mmol/L (3.3-5.1); Sodium 132 mmol/L (135-145)
--- NOTE | 2021-01-17 21:55 | PC.NURSE ---
pt a&o , no sob or chest pain. pt respirations in were 6 pt having difficult to arouse. per provider 4 of narcan. pt is wide awake. Continue to be rude and difficult at this time. Continue to redirect him. Ij place to the left side. medications given per May. pt assist to bathroom with assist. pt placed on monitor. Hospitalist into assess him.
[2021-01-17] MEDS: 0.9 % Sodium Chloride 1,000 ML 100 ML IVCONT (22:00)
[2021-01-17 22:01] VITALS: BP 157/82; PULSE 103; RESP 25; O2SAT 98
[2021-01-17] MEDS: HYDROmorphone HCl 0.5 MG/0.5 ML SYRINGE IVPUSH (22:41)
[2021-01-17 22:44] LABS: Reflex Lactate? Lactic Acid Added
--- NOTE | 2021-01-17 23:32 | PC.NURSE ---
pt assisted to the bathroom, pt has fall sock on and fall sign. Called hospitalist to discuss pt agitation. Pt change into hospital attire, complete bed change. Will continue to monitor.
[2021-01-17 23:37] LABS: ~Lactic Acid-LAB USE ONLY 3.3 mmol/L (0.5-2.0)
[2021-01-17] MEDS: traZODone HCL 50 MG TABLET PO (23:58)
[2021-01-18] VITALS (10 sets, daily range): BP systolic 134–160; BP diastolic 72–100; PULSE 80–101; RESP 20–25; TEMP 36.1–36.7; O2SAT 92–97; BMI 19.2
--- NOTE | 2021-01-18 00:01 | PC.NURSE ---
pt sleeping on and off, medication some what effective. pt continue to wake up with agitation, notified hospitalist and medicated per order. pt oob to bathroom with assist. red fall socks in place
[2021-01-18] MEDS: Magnesium Sulfate/H2O 2 GM/50 ML PIGGYBACK IV (00:45)
[2021-01-18] MEDS: 0.9 % Sodium Chloride 1,000 ML 999 ML IVCONT (00:46)
[2021-01-18] MEDS: 0.9 % Sodium Chloride Flush 3 ML SYRINGE IVFLUSH ×2 (00:46→23:52)
--- NOTE | 2021-01-18 01:00 | PC.NURSE ---
pt reposition and medicated per Mar.
[2021-01-18 01:19] LABS: Reflex Lactate? 2 Y
[2021-01-18] MEDS: 0.9 % Sodium Chloride 1,000 ML 50 ML IVCONT ×2 (01:40→17:17)
[2021-01-18 02:01] LABS: ~Lactic Acid-LAB USE ONLY 2.3 mmol/L (0.5-2.0)
[2021-01-18] MEDS: Piperacillin Sodium/Tazobactam 3.375 GM in 0.9 % Sodium Chloride 50 ML IV ×4 (03:18→20:24)
--- NOTE | 2021-01-18 04:10 | PC.NURSE ---
pt abd is distended was tapped here at [facility] two days ago. pt left against medical advice and was returned due to being unconscious.
[2021-01-18 04:22] LABS: COVID-19 Test Negative (Negative)
[2021-01-18] MEDS: vancomycin HCL 1,000 MG in 0.9 % Sodium Chloride 250 ML 270 MG IV ×3 (06:13→23:32)
[2021-01-18] MEDS: Heparin Sodium,Porcine 5,000 UNIT/ML VIAL 5000 UNIT SUBCUT ×3 (06:19→23:01)
--- NOTE | 2021-01-18 06:23 | PC.NURSE ---
medicated per may. pt sleeping and clam. Will continue to monitor.
[2021-01-18 06:49] LABS: Amphetamine Screen Urine Not Detected (Not Detect); Barbiturates, Urine Not Detected (Not Detect); Benzodiazepines Screen Urine Not Detected (Not Detect); Cannabinoid Screen Urine Not Detected (Not Detect); Cocaine Screen Urine POSITIVE (Not Detect); Fentanyl, urine POSITIVE (Not Detect); Opiate Screen Urine POSITIVE (Not Detect); Phencyclidine Screen Urine Not Detected (Not Detect)
[2021-01-18 06:52] LABS: Hematocrit 36.1 % (42.0-52.0); Hemoglobin 12.1 g/dl (14.0-18.0); Mean Corpuscular HGB Conc 33.5 g/dl (31.0-36.0); Mean Corpuscular Hemoglobin 28.8 pg (27.0-33.0); Mean Platelet Volume 8.6 fL (9.4-12.4); Platelet Count 199 X10*3/uL (160-400); Red Cell Distribution Width 14.8 % (11.0-16.0)
[2021-01-18 06:58] LABS: Anion Gap 12 (12-20); Blood Urea Nitrogen 16 mg/dL (9-16); Calcium 7.3 mg/dL (8.4-10.2); Carbon Dioxide 21 mmol/L (22-29); Chloride 104 mmol/L (96-108); Creatinine Clr Calc Pharmacy 150.6; Estimated Glomerular Filt Rate > 60; Glucose Random 129 mg/dL (60-115); Sodium 133 mmol/L (135-145)
[2021-01-18 07:10] LABS: WBC ABN SCTR FOR CBC 1
--- NOTE | 2021-01-18 07:28 | PM.EVENT ---
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 Discharged against medical advice less than 24 hours ago. Had been started on methadone during previous admission. Upon return to hospital required narcan with positive effect. Plan: -restart methadone at 25mg now -5mg methadone q 3hrs PRN for withdrawal sx for max of 40mg today
[2021-01-18 07:29] LABS: Band Neutrophils Percent 4 % (3-5); Lymphocytes Percent Manual 2 % (20-40); Monocytes Percent Manual 1 % (2-11); Neutrophils Percent Manual 93 % (45-73)
[2021-01-18 07:30] LABS: Burr Cells 3+ (>5) /OIF; RBC Morphology NOTED
[2021-01-18 07:31] LABS: Ovalocytes 1+ (5-14) /OIF; Polychromasia 1+ (0-2) /OIF
[2021-01-18 07:32] LABS: Acanthocytes 2+ (3-5) /OIF
[2021-01-18 07:34] LABS: Platelet Estimate NORMAL (NORMAL); Platelet Morphology Comment NORMAL
[2021-01-18 07:38] LABS: Lymphocytes Absolute Manual 0.9 X10*3/uL (1.2-4.9); Monocytes Absolute Manual 0.4 X10*3/uL (0.1-1.2); Neutrophils Absolute Manual 41.7 X10*3/uL (2.0-8.3)
[2021-01-18] MEDS: methADONE HCl 20 MG/2 ML ORAL.CONC 25 MG PO (08:55)
--- NOTE | 2021-01-18 10:08 | HO.PM.IMPN ---
Subjective Subjective Date of Service: 01/18/21 Interval History: Somnolent but arousable. Complains of abdominal pain and fullness Review of Systems Denies chest pain Denies shortness of breath Denies nausea vomiting diarrhea Admits abdominal pain Physical Exam Vital Signs: Vital Signs: Last Vital Signs Temp 97.4 F 01/17/21 19:59 Pulse 89 01/18/21 07:23 Resp 20 01/18/21 06:03 BP 136/77 01/18/21 07:23 Pulse Ox 96 01/18/21 06:03 Body Mass Index 19.2 Const: Other: Somnolent but arousable. Voices complaints of abdominal pain when pressure Cachetic HENMT: Other: Oropharynx clear; membranes dry Resp: Other: Clear to auscultation bilaterally; no rales rhonchi or wheezes Cardio: Other: No S4; positive S1-S2; no S3 murmurs rubs or gallops GI: Other: Distended/firm a with palpable fluid wave. Bowel sounds are quiet. Diffusely tender Neuro: Other: Cranial nerves 2-12 grossly intact as tested. Motor is 5/5 all extremities sensation appears intact. Cognition is slow but appropriate Extrem: Other: No edema bilateral Objective Data Active Medications Acetaminophen (Acetaminophen 325 Mg Tablet) 650 mg PO Q6H PRN PRN Reason: Pain, Mild (Pain Scale 1-3) Furosemide (Furosemide 20 Mg Tablet) 20 mg PO DAILY [facility]; Protocol Heparin Sodium (Porcine) (Heparin Sodium,Porcine 5,000 Unit/Ml Vial) 5,000 unit SUBCUT Q8H [facility] Last Admin: 01/18/21 06:19 Dose: 5,000 unit Documented by: CRISSY Hydromorphone HCl (Hydromorphone Hcl 0.5 Mg/0.5 Ml Syringe) 0.5 mg IVPUSH Q4H PRN; Protocol PRN Reason: Breakthrough Pain Last Admin: 01/17/21 22:41 Dose: 0.5 mg Documented by: FATIMAHOPEChary Vancomycin HCl 1,000 mg/ (Sodium Chloride) 270 mls @ 270 mls/hr IV Q8H [facility] Last Infusion: 01/18/21 07:23 Dose: 0 mls/hr Documented by: BENNETT Piperacillin Sod/Tazobactam (Sod 3.375 gm/ Sodium Chloride) 50 mls @ 100 mls/hr IV Q6H [facility] Last Infusion: 01/18/21 09:28 Dose: 0 mls/hr Documented by: BENNETT Sodium Chloride (Ns) 1,000 mls @ 50 mls/hr IVCONT .Q20H [facility] Last Admin: 01/18/21 01:40 Dose: 50 mls/hr Documented by: CRISSY Melatonin (Melatonin 3 Mg Tablet) 6 mg PO BEDTIME PRN PRN Reason: Insomnia Oxycodone HCl (Oxycodone Hcl Immed Release 5 Mg Tablet) 5 mg PO Q6H PRN PRN Reason: Pain, Severe (Pain Scale 7-10) Last Admin: 01/17/21 21:10 Dose: 5 mg Documented by: CRISSY Pharmacy Consult (Consult Rx Vancomycin Dosing) 1 each MISCELLANE DAILY PRN PRN Reason: Consult order Senna (Sennosides 8.6 Mg Tablet) 17.2 mg PO BEDTIME PRN PRN Reason: Constipation Sodium Chloride (0.9 % Sodium Chloride Flush 3 Ml Syringe) 3 ml IVFLUSH QSHIFT [facility] Last Admin: 01/18/21 07:12 Dose: Not Given Documented by: BENNETT Non-Admin Reason: IV Running Spironolactone (Spironolactone 25 Mg Tablet) 12.5 mg PO DAILY [facility]; Protocol Labs CBC & Chem 7: 01/18/21 06:30 01/18/21 06:30 Labs: Laboratory Results - last 24 hr 01/17/21 01/17/21 01/17/21 20:40 20:40 21:37 MCV 87.7 MCH 29.2 MCHC 33.3 RDW 15.0 Plt Count 243 D MPV 8.2 L Immature Gran % (Auto) Cancelled Neut % (Auto) Cancelled Lymph % (Auto) Cancelled Mccreary % (Auto) Cancelled Eos % (Auto) Cancelled Baso % (Auto) Cancelled Lymph # (Auto) Cancelled Mccreary # (Auto) Cancelled Eos # (Auto) Cancelled Baso # (Auto) Cancelled Abs Immat Gran (auto) Cancelled Absolute Neuts (auto) Cancelled Absolute Nucleated RBC 0.000 Nucleated RBC % (auto) 0.0 Neutrophils % (Manual) 89 H Band Neutrophils % 9 H Lymphocytes % (Manual) 2 L Monocytes % (Manual) Abs Neuts (Manual) 50.6 H Lymphocytes # (Manual) 1.0 L Monocytes # (Manual) Platelet Estimate NORMAL Plt Morphology Comment NORMAL RBC Morphology NOTED Polychromasia 1+ (0-2) Ovalocytes Kristy Cells 1+ (0-2) Acanthocytes (Spur) Anion Gap 16 Estim Creat Clear Calc 117.1 Estimated GFR > 60 Random Glucose 103 Lactic Acid 2.7 H* Lactic Acid Fup @ 2Hr Lactic Acid Fup @ 4Hr Calcium 8.3 L D Urine Opiates Screen Urine Fentanyl Screen Ur Barbiturates Screen Ur Phencyclidine Scrn Ur Amphetamines Screen U Benzodiazepines Scrn Urine Cocaine Screen U Marijuana (THC) Screen COVID-19 (TAMRA) COVID-19 N[employer]inc 01/17/21 01/18/21 01/18/21 23:16 01:36 03:59 MCV MCH MCHC RDW Plt Count MPV Immature Gran % (Auto) Neut % (Auto) Lymph % (Auto) Mccreary % (Auto) Eos % (Auto) Baso % (Auto) Lymph # (Auto) Mccreary # (Auto) Eos # (Auto) Baso # (Auto) Abs Immat Gran (auto) Absolute Neuts (auto) Absolute Nucleated RBC Nucleated RBC % (auto) Neutrophils % (Manual) Band Neutrophils % Lymphocytes % (Manual) Monocytes % (Manual) Abs Neuts (Manual) Lymphocytes # (Manual) Monocytes # (Manual) Platelet Estimate Plt Morphology Comment RBC Morphology Polychromasia Ovalocytes [place] Cells Acanthocytes (Spur) Anion Gap Estim Creat Clear Calc Estimated GFR Random Glucose Lactic Acid Lactic Acid Fup @ 2Hr 3.3 H* Lactic Acid Fup @ 4Hr 2.3 H* Calcium Urine Opiates Screen Urine Fentanyl Screen Ur Barbiturates Screen Ur Phencyclidine Scrn Ur Amphetamines Screen U Benzodiazepines Scrn Urine Cocaine Screen U Marijuana (THC) Screen COVID-19 (TAMRA) Negative COVID-19 [email or web address][employer]inc See Note 01/18/21 01/18/21 01/18/21 06:23 06:30 06:30 MCV 86.0 MCH 28.8 MCHC 33.5 RDW 14.8 Plt Count 199 MPV 8.6 L Immature Gran % (Auto) Cancelled Neut % (Auto) Cancelled Lymph % (Auto) Cancelled Mccreary % (Auto) Cancelled Eos % (Auto) Cancelled Baso % (Auto) Cancelled Lymph # (Auto) Cancelled Mccreary # (Auto) Cancelled Eos # (Auto) Cancelled Baso # (Auto) Cancelled Abs Immat Gran (auto) Cancelled Absolute Neuts (auto) Cancelled Absolute Nucleated RBC 0.000 Nucleated RBC % (auto) 0.0 Neutrophils % (Manual) 93 H Band Neutrophils % 4 Lymphocytes % (Manual) 2 L Monocytes % (Manual) 1 L Abs Neuts (Manual) 41.7 H Lymphocytes # (Manual) 0.9 L Monocytes # (Manual) 0.4 Platelet Estimate NORMAL Plt Morphology Comment NORMAL RBC Morphology NOTED Polychromasia 1+ (0-2) Ovalocytes 1+ (5-14) [place] Cells 3+ (>5) Acanthocytes (Spur) 2+ (3-5) Anion Gap 12 Estim Creat Clear Calc 150.6 Estimated GFR > 60 Random Glucose 129 H Lactic Acid Lactic Acid Fup @ 2Hr Lactic Acid Fup @ 4Hr Calcium 7.3 L D Urine Opiates Screen POSITIVE H Urine Fentanyl Screen POSITIVE H Ur Barbiturates Screen Not Detected Ur Phencyclidine Scrn Not Detected Ur Amphetamines Screen Not Detected U Benzodiazepines Scrn Not Detected Urine Cocaine Screen POSITIVE H U Marijuana (THC) Screen Not Detected COVID-19 (TAMRA) COVID-19 Clin Com Assessment and Plan (1) Hyponatremia: Status: Acute (2) Septic pulmonary embolism: Status: Acute (3) Cirrhosis: Status: Acute (4) Opioid use disorder: Status: Acute (5) Ascites: Status: Acute Assessment and Plan: 35-year-old male with a past medical history of IV drug abuse presented to the hospital with a chief complaint of bilateral foot and hand pain on ; admitted to the hospital for cellulitis.? Also noted to have MRSA bacteremia/liver cirrhosis/ascites/SBP/septic pulmonary emboli/left upper quadrant hematoma/opiate opiate withdrawal; patient left against medical advice on 01/17/2021. ER course: Per ER team there was a concern in the patient used after he left the hospital, also concern of the patient had a fall at the store-patient denies any fall, loss of consciousness, using drugs.? Lab showed severe leukocytosis WBC of 51; exam was nonfocal;In the ER patient's respiratory rate went down to 6-patient was given a dose of Narcan with improvement in symptoms; urine positive for opiates, fentanyl, cocaine 1. MRSA bacteremia and backdrop of pulmonary emboli Patient currently on IV vancomycin/Zosyn. Will re-consult ID([id number])and continue same. Patient cautioned that further heroin/cocaine use will likely be his demise. Echo negative for valvular vegetation 2. Cirrhosis with ascites On 01/15/2021 patient underwent 80 therapeutic/diagnostic paracentesis for 1.7 L fluid. Studies consistent with SBP Ascites now returned; now tense and painful. Patient states he believes he has hepatitis C despite being treated for it some years ago. Will ask Interventional for a therapeutic tap with salt poor albumin. Consult GI 3. Polysubstance abuse Required Narcan in the ER secondary to hypoventilation with improvement in symptoms. Seen by psych (patient well known to them) who recommend restart of methadone 25 mg with 5 mg q.3 hours p.r.n. withdrawal for max of 40 mg today 4. Full code Lovenox Quality Stroke Does the patient have a stroke diagnosis?: No VTE Prior VTE?: No VTE Risk Level:: Medical - moderate - high VTE Device Contraindication: Treatment Not Indicated VTE Drug Contraindication: N/A - Med Ordered
--- NOTE | 2021-01-18 11:27 | MHC.CM.PN ---
Attempted to meet with patient in regards to discharge planning. Patient is currently sleeping. No family present. Case Mangaement assessment completed using medical record. Per ID consult on 01/15/21, patient will need 6 weeks of Vanco. Anticipate PICC will not be placed until blood cultures are negative. Patient is on Methadone. Only facility in the are that will accept Methadone patients is [facility]. Referral made via [employer]. HCP verified to be on file. Continue to monitor for d/c needs.
--- NOTE | 2021-01-18 15:17 | MHC.RECOVSUP ---
Recovery Support note: Patient is a 35 year old [place] speaking male who presented to [facility] due to abdominal pain. This casualty underwriter met with patient to discuss withdrawal symptoms. Patient appeared to be resting comfortable however awoke when this casualty underwriter loudly stated his name several times. Patient reports withdrawal symptoms including body aches and diarrhea. Encouraged patient to reach out to staff if he needs anything to make him more comfortable. Discussed case with Elvira Chavez NP.
--- NOTE | 2021-01-18 20:24 | CONS_ITS ---
DATE OF SERVICE: 01/18/2021 REFERRING PHYSICIAN: Robin Mercedes MD REASON FOR CONSULTATION: Cirrhosis and ascites. HISTORY OF PRESENT ILLNESS: The patient is a 35-year-old man, who was admitted to the hospital with cellulitis and foot and hand pain. He left AMA on January 17 and used drugs and returns to the emergency room. He has a history of cirrhosis and ascites as well as hepatitis C that reportedly has been treated. He denies recent alcohol use. In the emergency department, he was noted to have an elevated white blood cell count and decrease in respirations, which responded to treatment with Narcan. The patient last underwent paracentesis on January 17 with laboratory studies done after 1 L of cloudy fluid was removed. Testing showed presence of SBP and he was treated with antibiotics. PAST MEDICAL HISTORY: 1. Substance abuse. 2. Hepatitis C. 3. Cirrhosis with ascites. 4. SBP. CURRENT MEDICATIONS: His current medication list is reviewed in the chart. ALLERGIES: THERE ARE NONE REPORTED. FAMILY HISTORY: This is reviewed with the patient and is noncontributory. SOCIAL HISTORY: There is tobacco abuse as well as substance abuse. The patient denies alcohol use. REVIEW OF SYSTEMS: SKIN: No pruritus. HEENT: Negative. CARDIOPULMONARY: No shortness of breath or chest pain. GASTROINTESTINAL: As above. GENITOURINARY: Negative. NEUROPSYCHIATRIC: Negative. PHYSICAL EXAMINATION: GENERAL: Shows a cachectic male, lying in bed. VITAL SIGNS: Reviewed in electronic medical record and are stable. SKIN: Anicteric. HEENT: Shows no scleral icterus. NECK: Without lymphadenopathy or thyromegaly. LUNGS: Clear. HEART: Shows regular rate and rhythm. ABDOMEN: Distended with obvious ascites. Bowel sounds are present. No organomegaly is noted. EXTREMITIES: Without edema. LABORATORY DATA: Includes a hepatitis C viral load of 2.74 million from January. IMPRESSION: Cirrhosis with ascites and history of spontaneous bacterial peritonitis. I advised the patient not to drink alcohol or use drugs. He can have paracentesis for comfort. I would continue antibiotics for his SBP. Treatment of his hepatitis C, which appears to have recurred as he did have a negative viral load in August of 2019 can be considered as an outpatient, although his prognosis is extremely poor given his continued substance abuse. Thanks for asking me to see him. I will follow him in the hospital as needed. MD NEDRA Knight/CHELSEA GARCIA: 01/18/2021 12:56:02 / [id number] MTDGarfield
[2021-01-18 21:47] LABS: Vancomycin Trough 10.3 mcg/mL (10.0-20.0)
--- NOTE | 2021-01-18 22:49 | PM.EVENT ---
Event Note Date of Service: 02/01/21 Event Note: He left AMA yesterday and has still MRSA Suggest continue Vancomycin and stop MRSA.
[2021-01-18] MEDS: oxyCODONE HCl Immed Release 5 MG TABLET PO (23:58)
[2021-01-19] VITALS (10 sets, daily range): BP systolic 150–188; BP diastolic 85–100; PULSE 66–100; RESP 16–20; TEMP 36.1–37.4; O2SAT 95–98
[2021-01-19] MEDS: HYDROmorphone HCl 0.5 MG/0.5 ML SYRINGE IVPUSH ×3 (00:56→22:06)
[2021-01-19] MEDS: Piperacillin Sodium/Tazobactam 3.375 GM in 0.9 % Sodium Chloride 50 ML IV (03:55)
[2021-01-19] MEDS: vancomycin HCL 1,000 MG in 0.9 % Sodium Chloride 250 ML 20 MG IV (06:23)
[2021-01-19] MEDS: Heparin Sodium,Porcine 5,000 UNIT/ML VIAL 5000 UNIT SUBCUT ×3 (06:25→21:56)
[2021-01-19 07:15] LABS: Basophils Absolute Auto 0.1 X10*3/uL (0.0-0.2); Basophils Percent Auto 0.2 % (0-2); Eosinophils Percent Auto 0.1 % (0-4); Hematocrit 40.5 % (42.0-52.0); Imm Gran Abs Auto 0.81 X10*3/uL (0.00-0.03); Imm Gran Pct Auto 2.2 % (0.0-0.4); Lymphocytes Absolute Auto 1.2 X10*3/uL (1.2-4.9); Lymphocytes Percent Auto 3.2 % (20-40); MANUAL DIFF FLAG SCAN; Mean Corpuscular HGB Conc 32.1 g/dl (31.0-36.0); Mean Corpuscular Hemoglobin 28.8 pg (27.0-33.0); Mean Corpuscular Volume 89.6 fL (80.0-98.0); Mean Platelet Volume 8.4 fL (9.4-12.4); Monocytes Absolute Auto 1.1 X10*3/uL (0.1-1.2); Monocytes Percent Auto 2.8 % (2-11); Neutrophils Absolute Auto 34.4 x10*3/uL (2.0-8.3); Neutrophils Percent Auto 91.5 % (45-73); Platelet Count 237 X10*3/uL (160-400); Red Blood Count 4.52 X10*6/uL (4.60-5.80); Red Cell Distribution Width 15.1 % (11.0-16.0); SCAN SMEAR FLAG 1
[2021-01-19 07:29] LABS: White Blood Count 37.6 X10*3/uL (4.8-10.8)
[2021-01-19] MEDS: oxyCODONE HCl Immed Release 5 MG TABLET PO ×2 (07:45→16:54)
[2021-01-19 07:49] LABS: SLIDE REVIEW VERIFIED
[2021-01-19 08:30] LABS: Alanine Aminotransferase 22 U/L (0-40); Albumin Level 2.6 g/dL (3.5-5.0); Alkaline Phosphatase 83 U/L (39-117); Anion Gap 15 (12-20); Aspartate Amino Transferase 34 U/L (5-37); Bilirubin Total 1.4 mg/dL (0.0-1.0); Blood Urea Nitrogen 19 mg/dL (9-16); Calcium 7.9 mg/dL (8.4-10.2); Carbon Dioxide 20 mmol/L (22-29); Chloride 102 mmol/L (96-108); Creatinine Clr Calc Pharmacy 147.9; Estimated Glomerular Filt Rate > 60; Glucose Fasting 123 mg/dL (60-99); Potassium 4.2 mmol/L (3.3-5.1); Sodium 133 mmol/L (135-145); Total Protein 5.9 g/dL (6.5-8.0)
[2021-01-19] MEDS: methADONE HCl 20 MG/2 ML ORAL.CONC 35 MG PO (10:00)
[2021-01-19] MEDS: Albumin Human 25 % 100 ML IV ×2 (10:02→11:08)
--- NOTE | 2021-01-19 10:18 | P.PNADD_ITS ---
Subjective Subjective Date of Service: 01/19/21 Reason For Visit: Bacteremia Interim History: Patient seen this AM. Ill appearing, lethargic--but awake and engaged in interview. Reporting nausea, chills, generalized body aches, abdominal pain, looses stools, weakness. Yesterday patient appeared somnolent for the majority of the day--received 25mg methadone yesterday. Review of Systems Acute medical concerns: Yes Medical Review of Systems: unchanged Mental Status Exam Mental Status Exam Patient Appearance: Fatigued and Perspiring Patient Orientation: Person, Place, Time and Situation Level of Consciousness: Awake and Lethargic Patient Behavior: Appropriate Mood Description: Anxious Affect Description: Anxious Thought Content: positive for [place] Judgement: Fair Diagnostics Vital Signs (24Hr): Vital Signs - 24 hr 01/18/21 11:02 01/18/21 14:12 01/18/21 16:18 Temperature 96.9 F Pulse Rate 98 101 H 98 Respiratory Rate 20 20 20 Blood Pressure 148/77 H 159/93 H 153/92 H Pulse Oximetry 94 94 95 01/18/21 19:08 01/18/21 23:02 01/19/21 02:52 Temperature 97.7 F 98.0 F 98.2 F Pulse Rate 100 80 100 Respiratory Rate 20 20 20 Blood Pressure 144/82 H 159/87 H 171/91 H Pulse Oximetry 95 92 95 01/19/21 07:39 Temperature 99.3 F Pulse Rate 99 Respiratory Rate 18 Blood Pressure 160/95 H Pulse Oximetry 95 Body Mass Index 19.2 Labs Results: 01/19/21 05:58 01/19/21 05:59 Labs: Laboratory Results - last 48 hr 01/17/21 01/17/21 01/17/21 20:40 20:40 21:37 WBC 51.6 H* RBC 4.48 L Hgb 13.1 L Hct 39.3 L MCV 87.7 MCH 29.2 MCHC 33.3 RDW 15.0 Plt Count 243 D MPV 8.2 L Immature Gran % (Auto) Cancelled Neut % (Auto) Cancelled Lymph % (Auto) Cancelled [place] % (Auto) Cancelled Eos % (Auto) Cancelled Baso % (Auto) Cancelled Lymph # (Auto) Cancelled [place] # (Auto) Cancelled Eos # (Auto) Cancelled Baso # (Auto) Cancelled Abs Immat Gran (auto) Cancelled Absolute Neuts (auto) Cancelled Absolute Nucleated RBC 0.000 Nucleated RBC % (auto) 0.0 Neutrophils % (Manual) 89 H Band Neutrophils % 9 H Lymphocytes % (Manual) 2 L Monocytes % (Manual) Abs Neuts (Manual) 50.6 H Lymphocytes # (Manual) 1.0 L Monocytes # (Manual) Platelet Estimate NORMAL Plt Morphology Comment NORMAL RBC Morphology NOTED Polychromasia 1+ (0-2) Ovalocytes Kristy Cells 1+ (0-2) Acanthocytes (Spur) Smear Tech's Comments Sodium 132 L Potassium 4.1 D Chloride 97 Carbon Dioxide 23 Anion Gap 16 BUN 15 Creatinine 0.72 Estim Creat Clear Calc 117.1 Estimated GFR > 60 Random Glucose 103 Fasting Glucose Lactic Acid 2.7 H* Lactic Acid Fup @ 2Hr Lactic Acid Fup @ 4Hr Calcium 8.3 L D Total Bilirubin AST ALT Alkaline Phosphatase Total Protein Albumin Vancomycin Trough Urine Opiates Screen Urine Fentanyl Screen Ur Barbiturates Screen Ur Phencyclidine Scrn Ur Amphetamines Screen U Benzodiazepines Scrn Urine Cocaine Screen U Marijuana (THC) Screen COVID-19 (TAMRA) COVID-19 Clin Com 01/17/21 01/18/21 01/18/21 23:16 01:36 03:59 WBC RBC Hgb Hct MCV MCH MCHC RDW Plt Count MPV Immature Gran % (Auto) Neut % (Auto) Lymph % (Auto) [place] % (Auto) Eos % (Auto) Baso % (Auto) Lymph # (Auto) [place] # (Auto) Eos # (Auto) Baso # (Auto) Abs Immat Gran (auto) Absolute Neuts (auto) Absolute Nucleated RBC Nucleated RBC % (auto) Neutrophils % (Manual) Band Neutrophils % Lymphocytes % (Manual) Monocytes % (Manual) Abs Neuts (Manual) Lymphocytes # (Manual) Monocytes # (Manual) Platelet Estimate Plt Morphology Comment RBC Morphology Polychromasia Ovalocytes Kristy Cells Acanthocytes (Spur) Smear Tech's Comments Sodium Potassium Chloride Carbon Dioxide Anion Gap BUN Creatinine Estim Creat Clear Calc Estimated GFR Random Glucose Fasting Glucose Lactic Acid Lactic Acid Fup @ 2Hr 3.3 H* Lactic Acid Fup @ 4Hr 2.3 H* Calcium Total Bilirubin AST ALT Alkaline Phosphatase Total Protein Albumin Vancomycin Trough Urine Opiates Screen Urine Fentanyl Screen Ur Barbiturates Screen Ur Phencyclidine Scrn Ur Amphetamines Screen U Benzodiazepines Scrn Urine Cocaine Screen U Marijuana (THC) Screen COVID-19 (TAMRA) Negative COVID-19 [facility] Com See Note 01/18/21 01/18/21 01/18/21 06:23 06:30 06:30 WBC 43.0 H* RBC 4.20 L Hgb 12.1 L Hct 36.1 L MCV 86.0 MCH 28.8 MCHC 33.5 RDW 14.8 Plt Count 199 MPV 8.6 L Immature Gran % (Auto) Cancelled Neut % (Auto) Cancelled Lymph % (Auto) Cancelled [place] % (Auto) Cancelled Eos % (Auto) Cancelled Baso % (Auto) Cancelled Lymph # (Auto) Cancelled [place] # (Auto) Cancelled Eos # (Auto) Cancelled Baso # (Auto) Cancelled Abs Immat Gran (auto) Cancelled Absolute Neuts (auto) Cancelled Absolute Nucleated RBC 0.000 Nucleated RBC % (auto) 0.0 Neutrophils % (Manual) 93 H Band Neutrophils % 4 Lymphocytes % (Manual) 2 L Monocytes % (Manual) 1 L Abs Neuts (Manual) 41.7 H Lymphocytes # (Manual) 0.9 L Monocytes # (Manual) 0.4 Platelet Estimate NORMAL Plt Morphology Comment NORMAL RBC Morphology NOTED Polychromasia 1+ (0-2) Ovalocytes 1+ (5-14) Kristy Cells 3+ (>5) Acanthocytes (Spur) 2+ (3-5) Smear Tech's Comments Sodium 133 L Potassium 4.0 Chloride 104 Carbon Dioxide 21 L Anion Gap 12 BUN 16 Creatinine 0.56 Estim Creat Clear Calc 150.6 Estimated GFR > 60 Random Glucose 129 H Fasting Glucose Lactic Acid Lactic Acid Fup @ 2Hr Lactic Acid Fup @ 4Hr Calcium 7.3 L D Total Bilirubin AST ALT Alkaline Phosphatase Total Protein Albumin Vancomycin Trough Urine Opiates Screen POSITIVE H Urine Fentanyl Screen POSITIVE H Ur Barbiturates Screen Not Detected Ur Phencyclidine Scrn Not Detected Ur Amphetamines Screen Not Detected U Benzodiazepines Scrn Not Detected Urine Cocaine Screen POSITIVE H U Marijuana (THC) Screen Not Detected COVID-19 (TAMRA) COVID-19 [facility] Com 01/18/21 01/19/21 01/19/21 21:15 05:58 05:59 WBC 37.6 H* RBC 4.52 L Hgb 13.0 L Hct 40.5 L MCV 89.6 MCH 28.8 MCHC 32.1 RDW 15.1 Plt Count 237 MPV 8.4 L Immature Gran % (Auto) 2.2 H Neut % (Auto) 91.5 H Lymph % (Auto) 3.2 L [place] % (Auto) 2.8 Eos % (Auto) 0.1 Baso % (Auto) 0.2 Lymph # (Auto) 1.2 [place] # (Auto) 1.1 Eos # (Auto) 0.0 Baso # (Auto) 0.1 Abs Immat Gran (auto) 0.81 H Absolute Neuts (auto) 34.4 H Absolute Nucleated RBC 0.000 Nucleated RBC % (auto) 0.0 Neutrophils % (Manual) Band Neutrophils % Lymphocytes % (Manual) Monocytes % (Manual) Abs Neuts (Manual) Lymphocytes # (Manual) Monocytes # (Manual) Platelet Estimate Plt Morphology Comment RBC Morphology Polychromasia Ovalocytes [place] Cells Acanthocytes (Spur) Smear Tech's Comments VERIFIED Sodium 133 L Potassium 4.2 Chloride 102 Carbon Dioxide 20 L Anion Gap 15 BUN 19 H Creatinine 0.57 Estim Creat Clear Calc 147.9 Estimated GFR > 60 Random Glucose Fasting Glucose 123 H Lactic Acid Lactic Acid Fup @ 2Hr Lactic Acid Fup @ 4Hr Calcium 7.9 L D Total Bilirubin 1.4 H AST 34 ALT 22 Alkaline Phosphatase 83 D Total Protein 5.9 L Albumin 2.6 L Vancomycin Trough 10.3 Urine Opiates Screen Urine Fentanyl Screen Ur Barbiturates Screen Ur Phencyclidine Scrn Ur Amphetamines Screen U Benzodiazepines Scrn Urine Cocaine Screen U Marijuana (THC) Screen COVID-19 (TAMRA) COVID-19 Clin Com Imaging Radiology Impressions: ITS Impressions Chest X-Ray 01/17/21 21:02 IMPRESSION: Multifocal airspace opacities are new/increased when compared to the chest radiograph from 01/02/2021 and correlate with septic emboli disease and multifocal pneumonia noted on the CT from 01/15/2021. Small left pleural effusion. Medications Medications Current Medications Acetaminophen (Acetaminophen 325 Mg Tablet) 650 mg PO Q6H PRN PRN Reason: Pain, Mild (Pain Scale 1-3) Furosemide (Furosemide 20 Mg Tablet) 20 mg PO DAILY [facility]; Protocol Heparin Sodium (Porcine) (Heparin Sodium,Porcine 5,000 Unit/Ml Vial) 5,000 unit SUBCUT Q8H [facility] Last Admin: 01/19/21 06:25 Dose: 5,000 unit Documented by: Hydromorphone HCl (Hydromorphone Hcl 0.5 Mg/0.5 Ml Syringe) 0.5 mg IVPUSH Q4H PRN; Protocol PRN Reason: Breakthrough Pain Last Admin: 01/19/21 00:56 Dose: 0.5 mg Documented by: Vancomycin HCl 1,000 mg/ (Sodium Chloride) 270 mls @ 270 mls/hr IV Q8H [facility] [place] Last Infusion: 01/19/21 09:54 Dose: Infused Documented by: Sodium Chloride (Ns) 1,000 mls @ 50 mls/hr IVCONT .Q20H [facility] [place] Last Admin: 01/18/21 17:17 Dose: 50 mls/hr Documented by: Melatonin (Melatonin 3 Mg Tablet) 6 mg PO BEDTIME PRN PRN Reason: Insomnia Methadone HCl (Methadone Hcl 20 Mg/2 Ml Oral.Conc) 45 mg PO ONCE ONE Stop: 01/20/21 08:01 Oxycodone HCl (Oxycodone Hcl Immed Release 5 Mg Tablet) 5 mg PO Q6H PRN PRN Reason: Pain, Severe (Pain Scale 7-10) Last Admin: 01/19/21 07:45 Dose: 5 mg Documented by: Pharmacy Consult (Consult Rx Vancomycin Dosing) 1 each MISCELLANE DAILY PRN PRN Reason: Consult order Senna (Sennosides 8.6 Mg Tablet) 17.2 mg PO BEDTIME PRN PRN Reason: Constipation Sodium Chloride (0.9 % Sodium Chloride Flush 3 Ml Syringe) 3 ml IVFLUSH QSHIFT [facility] [place] Last Admin: 01/19/21 07:18 Dose: Not Given Documented by: Spironolactone (Spironolactone 25 Mg Tablet) 12.5 mg PO DAILY [facility] [place]; Protocol Allergies Allergies Allergy/AdvReac Type Severity Reaction Status Date / Time No Known Allergies Allergy Verified 01/02/21 06:31 [No Known Allergies*] Assessment & Plan Assessment & Plan (1) Opioid use disorder: Status: Acute Code(s): F11.90 - Opioid use, unspecified, uncomplicated Assessment and Plan: * will keep methadone at 35mg and re-eval need to increase as half life of methadone in patients with cirrhosis can be sometimes prolonged * monitor for over sedation I spent __35____ minutes with the patient and/or on the patient floor today, greater than?50% of which was spent counseling/coordinating care.
--- NOTE | 2021-01-19 11:04 | P.PNIM_ITS ---
Subjective Subjective Date of Service: 01/19/21 Interval History: abd distension/pain nausea no hematemesis, hematochezia, or melena Review of Systems Review of Systems: Yes all other systems are reviewed and are negative Physical Exam Vital Signs: Vital Signs: Last Vital Signs Temp 99.3 F 01/19/21 07:39 Pulse 99 01/19/21 07:39 Resp 18 01/19/21 07:39 BP 160/95 H 01/19/21 07:39 Pulse Ox 95 01/19/21 07:39 Body Mass Index 19.2 Gen: disheveled, ill apearing HEENT: sclera anicteric, moist mucus membranes Neck: supple Lungs: clear to auscultation bilaterally Heart: regular rate and rhythm, no murmurs Abd: tense ascites present, tender Ext: no edema Skin: erythema on ankles and feet Neuro: lethargic but oriented x3, no focal findings Psych: appropriate affect Objective Data Active Medications Acetaminophen (Acetaminophen 325 Mg Tablet) 650 mg PO Q6H PRN PRN Reason: Pain, Mild (Pain Scale 1-3) Furosemide (Furosemide 20 Mg Tablet) 20 mg PO BID@0900,1800 [facility]; Protocol Heparin Sodium (Porcine) (Heparin Sodium,Porcine 5,000 Unit/Ml Vial) 5,000 unit SUBCUT Q8H [facility] Last Admin: 01/19/21 06:25 Dose: 5,000 unit Documented by: FLACO Hydromorphone HCl (Hydromorphone Hcl 0.5 Mg/0.5 Ml Syringe) 0.5 mg IVPUSH Q4H PRN; Protocol PRN Reason: Breakthrough Pain Last Admin: 01/19/21 00:56 Dose: 0.5 mg Documented by: FLACO Vancomycin HCl 1,000 mg/ (Sodium Chloride) 270 mls @ 270 mls/hr IV Q8H [facility] Last Infusion: 01/19/21 09:54 Dose: 0 mls/hr Documented by: MENDEL Sodium Chloride (Ns) 1,000 mls @ 50 mls/hr IVCONT .Q20H [facility] Last Admin: 01/18/21 17:17 Dose: 50 mls/hr Documented by: MENDEL Melatonin (Melatonin 3 Mg Tablet) 6 mg PO BEDTIME PRN PRN Reason: Insomnia Methadone HCl (Methadone Hcl 20 Mg/2 Ml Oral.Conc) 35 mg PO ONCE ONE Stop: 01/20/21 08:01 Oxycodone HCl (Oxycodone Hcl Immed Release 5 Mg Tablet) 5 mg PO Q6H PRN PRN Reason: Pain, Severe (Pain Scale 7-10) Last Admin: 01/19/21 07:45 Dose: 5 mg Documented by: MENDEL Pharmacy Consult (Consult Rx Vancomycin Dosing) 1 each MISCELLANE DAILY PRN PRN Reason: Consult order Senna (Sennosides 8.6 Mg Tablet) 17.2 mg PO BEDTIME PRN PRN Reason: Constipation Sodium Chloride (0.9 % Sodium Chloride Flush 3 Ml Syringe) 3 ml IVFLUSH QSHIFT [facility] Last Admin: 01/19/21 07:18 Dose: Not Given Documented by: MENDEL Non-Admin Reason: IV Running Spironolactone (Spironolactone 25 Mg Tablet) 12.5 mg PO BID@0900,1800 [facility]; Protocol Labs CBC & Chem 7: 01/19/21 05:58 01/19/21 05:59 Labs: Laboratory Results - last 24 hr 01/18/21 01/19/21 01/19/21 21:15 05:58 05:59 MCV 89.6 MCH 28.8 MCHC 32.1 RDW 15.1 Plt Count 237 MPV 8.4 L Immature Gran % (Auto) 2.2 H Neut % (Auto) 91.5 H Lymph % (Auto) 3.2 L [place] % (Auto) 2.8 Eos % (Auto) 0.1 Baso % (Auto) 0.2 Lymph # (Auto) 1.2 [place] # (Auto) 1.1 Eos # (Auto) 0.0 Baso # (Auto) 0.1 Abs Immat Gran (auto) 0.81 H Absolute Neuts (auto) 34.4 H Absolute Nucleated RBC 0.000 Nucleated RBC % (auto) 0.0 Smear Tech's Comments VERIFIED Anion Gap 15 Estim Creat Clear Calc 147.9 Estimated GFR > 60 Fasting Glucose 123 H Calcium 7.9 L D Total Bilirubin 1.4 H AST 34 ALT 22 Alkaline Phosphatase 83 D Total Protein 5.9 L Albumin 2.6 L Vancomycin Trough 10.3 Assessment and Plan (1) Hyponatremia: Status: Acute (2) Septic pulmonary embolism: Status: Acute (3) Cirrhosis: Status: Acute (4) Opioid use disorder: Status: Acute (5) Ascites: Status: Acute Assessment and Plan: hospital d#3 35yo M who uses injection heroin and was diagnosed with MRSA bacteremia in the ED 01/02/21 but could not be contacted to be called back admitted 01/15-01/17/21 with ascites growing MRSA [[id number] WBCs, 86% PMNs] and persistent positive BCx growing MRSA but signed out AMA 01/17/21 re-admitted 01/17/21 and given naloxone for suspected heroin overdose still bacteremic # MRSA bacteremia - continue vancomycin, ID following, no vegetation on TTE though limited study a nd BCx still positive from 01/17/21. check BCx tomorrow 01/20/21 and if still positive may need MICHELLE # MRSA peritonitis - continue vancomycin, d/c pip/yumiko. give albumin 1 g/kg today to prevent HRS # decompensated cirrhosis with ascites - repeat paracentesis tomorrow- therapeutic + diagnostic - start furosemide + spironolactone # HCV reinfection [viral load 274k] - will need outpt treatment at hepatology center # septic pulmonary emboli - due to MRSA bacteremia; not hypoxic # leukocytosis - likely leukemoid reaction from infection, Heme consult pending # cellulitis of feet + hands - continue vancomycin # L glenohumeral/bursal fluid collection - not clinically consistent with septic arthritis per Orthopedics # hypoNa - mild, likely due to cirrhosis # LUQ hematoma - per Surgery , no intervention indicated # opioid use disorder - Addiction Medicine following, on methadone - got naloxone in ED for overdose # VTE ppx - UFH # dispo - once BCx clear, needs PICC line and STR Quality Stroke Does the patient have a stroke diagnosis?: No VTE Prior VTE?: No VTE Risk Level:: Medical - moderate - high VTE Device Contraindication: Treatment Not Indicated VTE Drug Contraindication: N/A - Med Ordered
[2021-01-19] MEDS: vancomycin HCL 1,000 MG in 0.9 % Sodium Chloride 250 ML 270 MG IV ×2 (14:33→21:56)
[2021-01-19] MEDS: 0.9 % Sodium Chloride 1,000 ML 50 ML IVCONT (14:34)
[2021-01-19] MEDS: Spironolactone 25 MG TABLET 12.5 MG PO (16:54)
[2021-01-19] MEDS: Furosemide 20 MG TABLET PO (16:55)
--- NOTE | 2021-01-19 17:47 | MHC.RECOVSUP ---
Recovery Support note: Patient is reporting withdrawal symptoms at this time. Patient understands why he is unable to receive larger doses of methadone at this time. Patient expressed concern related to his health condition, stating I'm going to in here. This caption writer reassured patient that he is getting the care he needs and that staff will do whatever we can to keep him comfortable while he receives his treatment. Encouraged patient to reach out to staff if he needs anything. Discussed case with patient's RN.
--- NOTE | 2021-01-19 20:12 | P.CNHO_ITS ---
Subjective - Subjective Chief complaint: Consult for Leucocytosis. Patient: new to practice Consult date: 01/19/21 Requesting Physician: Regine. Primary Care Provider: Unknown Physician Medical Summary: DIAGNOSIS: LEUCOCYTOSIS. HPI - Consult Narrative Reason for consult: Consult for: Leukocytosis. Narrative: Gopal Rosa is a pleasant 35 year old gentleman, presented to the hospital with a chief complaint of bilateral foot and hand pain on ; He was admitted to the hospital for cellulitis. Noted to have MRSA bacteremia/liver cirrhosis/ascites/SBP/septic pulmonary emboli/left upper quadrant hematoma/opiate opiate withdrawal; Patient left against medical advice on 01/17/2021 mentioning that he wanted to see his daughter and presented back again to the hospital to continue his treatment. He denies using heroin after he left the hospital; complains of generalized bod y aches. Denies any chest pain or palpitations. Denies shortness of breath. Denies any spine pain. Review of all other systems is negative except mentioned above However, there was a concern that he used heroine, after he left the hospital. Also concern of the patient had a fall at the store. He denies any fall, loss of consciousness, using drugs. Lab showed severe leukocytosis: WBC of 51; exam was nonfocal; While in the ER patient's respiratory rate went down to 6. He was given a dose of Narcan with improvement in symptoms. Past medical history of: IV drug abuse. Review of Systems - Constitutional Reports system reviewed and no additional complaints, except as documented, Reports fatigue, Reports fever(s), Reports lack of energy, Reports malaise, Reports weight loss, Denies headache(s) Comments: Cellulitis - Eyes Reports system reviewed and no additional complaints, except as documented, Denies blurry vision - ENT Reports system reviewed and no additional complaints, except as documented - Cardiovascular Reports system reviewed and no additional complaints, except as documented, Denies chest pain - Respiratory Reports no additional respiratory complaints, Reports change in phlegm color - Gastrointestinal Reports system reviewed and no additional complaints, except as documented, Reports abdominal pain, Reports belching, Reports pain with swallowing - Genitourinary Genitourinary: Reports no additional male genitourinary complaints, Denies blood in urine - Musculoskeletal Reports system reviewed and no additional complaints, except as documented, Denies back pain - Integumentary/Breasts Skin/Breast: Reports no additional skin complaints, Denies bleeding lesions - Neurologic Reports system reviewed and no additional complaints, except as documented - Psychiatric Reports system reviewed and no additional complaints, except as documented, Reports behavioral changes, Reports change in appetite, Denies anxiety - Endocrine Reports no additional endocrine complaints, Denies excessive sweating - Hematologic/Lymphatic Reports system reviewed and no additional complaints, except as documented, Denies easy bruising - Allergic/Immunologic Reports system reviewed and no additional complaints, except as documented, R eports GI upset with certain foods Oncology Screenings - ECOG Performance Status ECOG Performance Status: 1 [facility] Medical History: Medical History (Last Updated 01/27/21 @ 13:32 by Almas Ventura MD) Ascites Hematoma and contusion IV drug user Functional capacity: independent ambulation Patient : No Social History: Social History (Last Reviewed 01/17/21 @ 20:40 by Obey Perrin MD) Living Situation History: Household Members: Other Housing: Homeless Do you presently have visiting nurse or other home services: No Alcohol History: Alcohol intake: current Alcohol History Details: Alcohol intake frequency: 3 or more drinks per day Alcohol type: beer Tobacco History: Patient Tobacco Use Status: Never used Tobacco Tobacco use type: Cigarette e-Cigarette/Vaping Use: Never Used Substance Use History: Substance Use Type: Crack/Cocaine Occupation Assessmet: service: No Home Medications and Allergies Current Medications: Current Medications Acetaminophen (Acetaminophen 325 Mg Tablet) 650 mg PO Q6H PRN PRN Reason: Pain, Mild (Pain Scale 1-3) Furosemide (Furosemide 20 Mg Tablet) 20 mg PO BID@0900,1800 [facility]; Protocol Last Admin: 01/19/21 16:55 Dose: 20 mg Documented by: Heparin Sodium (Porcine) (Heparin Sodium,Porcine 5,000 Unit/Ml Vial) 5,000 unit SUBCUT Q8H [facility] Last Admin: 01/19/21 14:33 Dose: 5,000 unit Documented by: Hydromorphone HCl (Hydromorphone Hcl 0.5 Mg/0.5 Ml Syringe) 0.5 mg IVPUSH Q4H PRN; Protocol PRN Reason: Breakthrough Pain Last Admin: 01/19/21 14:33 Dose: 0.5 mg Documented by: Vancomycin HCl 1,000 mg/ (Sodium Chloride) 270 mls @ 270 mls/hr IV Q8H [facility] Last Infusion: 01/19/21 15:36 Dose: Infused Documented by: Sodium Chloride (Ns) 1,000 mls @ 50 mls/hr IVCONT .Q20H [facility] Last Admin: 01/19/21 14:34 Dose: 50 mls/hr Documented by: Melatonin (Melatonin 3 Mg Tablet) 6 mg PO BEDTIME PRN PRN Reason: Insomnia Methadone HCl (Methadone Hcl 20 Mg/2 Ml Oral.Conc) 35 mg PO ONCE ONE Stop: 01/20/21 08:01 Oxycodone HCl (Oxycodone Hcl Immed Release 5 Mg Tablet) 5 mg PO Q6H PRN PRN Reason: Pain, Severe (Pain Scale 7-10) Last Admin: 01/19/21 16:54 Dose: 5 mg Documented by: Pharmacy Consult (Consult Rx Vancomycin Dosing) 1 each MISCELLANE DAILY PRN PRN Reason: Consult order Senna (Sennosides 8.6 Mg Tablet) 17.2 mg PO BEDTIME PRN PRN Reason: Constipation Sodium Chloride (0.9 % Sodium Chloride Flush 3 Ml Syringe) 3 ml IVFLUSH QSHIFT [facility] Last Admin: 01/19/21 14:42 Dose: Not Given Documented by: Spironolactone (Spironolactone 25 Mg Tablet) 12.5 mg PO BID@0900,1800 [facility]; Protocol Last Admin: 01/19/21 16:54 Dose: 12.5 mg Documented by: Allergies Allergy/AdvReac Type Severity Reaction Status Date / Time No Known Allergies Allergy Verified 01/02/21 06:31 [No Known Allergies*] Physical Exam Vital signs: Vital Signs Temp 96.9 F 01/19/21 19:00 Pulse 66 01/19/21 19:00 Resp 20 01/19/21 19:00 BP 188/97 H 01/19/21 19:00 Pulse Ox 98 01/19/21 19:00 Intake & Output 01/19/21 01/19/21 01/20/21 06:59 18:59 06:59 Intake Total 771.333 / 5842.166 2128.667 / 2128.667 Output Total 600 / 600 350 / 350 Balance 171.333 / 5242.166 1778.667 / 1778.667 Urine Output (Average ml/kg/hr) 0.85 0.49 Intake: Intake, Oral Amount 390 / 390 400 / 400 Intake, IV Amount 381.333 / 5452.166 1728.667 / 1728.667 Albumin Human 25 % 100 ml @ 100 200 / 200 mls/hr IV Q1H [facility] Rx#: [id number] Piperacillin Sodium/Tazobactam 100 / 250 3.375 gm In 0.9 % Sodium Chloride 50 ml @ 100 mls/hr IV Q6H [facility] Rx#:[id number] vancomycin HCL 1,000 mg In 0.9 281.333 / 821.333 528.667 / 528.667 % Sodium Chloride 250 ml @ 270 mls/hr IV Q8H [facility] Rx#: [id number] 0.9 % Sodium Chloride 1,000 ml 1000 / 1000 @ 50 mls/hr IVCONT .Q20H [facility] Rx #:[id number] Output: Output, Urine Amount 600 / 600 350 / 350 Other: Urine Urinal Urine Color Cindy Last Bowel Movement 01/17/21 Weight 58.967 kg - Constitutional Present: mild distress - Routine HEENT Exam Head: Present: normal inspection ENT: Present: normal exam - Routine Neck Exam Present: supple - Routine Respiratory Exam Present: CTAB - Routine Cardiovascular Exam Cardiovascular: Present: RRR, S1, S2 - Routine Abdominal Exam Present: soft, nontender - Routine Skin Exam Comments: Cellulitis. Hem/Onc Consult Result - Labs CBC & Chem 7: 01/30/21 10:00 02/03/21 05:30 Labs: Short CBC 01/19/21 Range/Units 05:58 WBC 37.6 H* (4.8-10.8) X10*3/uL Hgb 13.0 L (14.0-18.0) g/dl Hct 40.5 L (42.0-52.0) % Plt Count 237 (160-400) X10*3/uL BMP 01/19/21 05:59 Sodium 133 L Potassium 4.2 Chloride 102 Carbon Dioxide 20 L BUN 19 H Creatinine 0.57 Calcium 7.9 L D Liver Function 01/19/21 Range/Units 05:59 Total Bilirubin 1.4 H (0.0-1.0) mg/dL AST 34 (5-37) U/L ALT 22 (0-40) U/L Alkaline Phosphatase 83 D (39-117) U/L Albumin 2.6 L (3.5-5.0) g/dL Assessment and Plan Patient Active problem list reviewed?: Yes (1) Leucocytosis Status: Acute Assessment and plan: 35 year old gentleman with H/O Drug Abuse, Cellulitis, noted to have leucocytosis. This is most likely reactive, secondary to the infection. DIFFERENTIAL DIAGNOSIS: 2. MPN: CML. PLAN: Will check BCR/ABL gene transcript to rule out CML. Continue to treat the cellulitis. Monitor WBC count carefully. Thanks, Addendum: BCR/ABL: negative. WBC returned to normal: 10.6. - Time Spent With Patient Time Spent with Patient (in minutes): 30
[2021-01-19 21:21] LABS: Vancomycin Trough 13.7 mcg/mL (10.0-20.0)
[2021-01-20] VITALS (11 sets, daily range): BP systolic 134–179; BP diastolic 74–103; PULSE 88–101; RESP 17–20; TEMP 36.2–36.7; O2SAT 95–99; BMI 19.2
[2021-01-20] MEDS: oxyCODONE HCl Immed Release 5 MG TABLET PO (03:56)
[2021-01-20] MEDS: vancomycin HCL 1,000 MG in 0.9 % Sodium Chloride 250 ML 270 MG IV ×3 (06:00→22:25)
[2021-01-20] MEDS: HYDROmorphone HCl 0.5 MG/0.5 ML SYRINGE IVPUSH ×3 (06:04→17:32)
[2021-01-20 07:01] LABS: Basophils Absolute Auto 0.1 X10*3/uL (0.0-0.2); Basophils Percent Auto 0.2 % (0-2); Eosinophils Absolute Auto 0.1 X10*3/uL (0.0-0.4); Eosinophils Percent Auto 0.2 % (0-4); Hematocrit 41.3 % (42.0-52.0); Hemoglobin 13.1 g/dl (14.0-18.0); Imm Gran Abs Auto 0.72 X10*3/uL (0.00-0.03); Imm Gran Pct Auto 2.1 % (0.0-0.4); Lymphocytes Absolute Auto 1.8 X10*3/uL (1.2-4.9); Lymphocytes Percent Auto 5.2 % (20-40); MANUAL DIFF FLAG SCAN; Mean Corpuscular HGB Conc 31.7 g/dl (31.0-36.0); Mean Corpuscular Hemoglobin 28.5 pg (27.0-33.0); Mean Corpuscular Volume 89.8 fL (80.0-98.0); Mean Platelet Volume 8.4 fL (9.4-12.4); Monocytes Absolute Auto 1.6 X10*3/uL (0.1-1.2); Monocytes Percent Auto 4.5 % (2-11); Neutrophils Absolute Auto 30.2 x10*3/uL (2.0-8.3); Neutrophils Percent Auto 87.8 % (45-73); Platelet Count 204 X10*3/uL (160-400); Red Cell Distribution Width 15.4 % (11.0-16.0); SCAN SMEAR FLAG 1
[2021-01-20 07:08] LABS: Ammonia 38 umol/L (13-55); INTERNATIONAL NORM RATIO 1.5 (0.9-1.1); Prothrombin Time 17.1 SEC (9.9-13.0)
[2021-01-20 07:49] LABS: White Blood Count 34.4 X10*3/uL (4.8-10.8)
[2021-01-20 08:10] LABS: SLIDE REVIEW VERIFIED
[2021-01-20] MEDS: methADONE HCl 20 MG/2 ML ORAL.CONC 35 MG PO (08:45)
[2021-01-20] MEDS: Spironolactone 25 MG TABLET 12.5 MG PO ×2 (08:46→16:58)
[2021-01-20] MEDS: 0.9 % Sodium Chloride Flush 3 ML SYRINGE IVFLUSH ×2 (08:46→15:15)
[2021-01-20] MEDS: Furosemide 20 MG TABLET PO ×2 (08:47→16:58)
--- NOTE | 2021-01-20 09:46 | P.CDIC_ITS ---
CDI Concurrent Query Documentation Clarification: PHYSICIAN'S DOCUMENTATION REQUEST Date of Query: 01/20/21 0946 Patient Name: Gopal Rosa Admit Date: 01/17/21 Dear Doctor, A review of the medical record indicates additional documentation may be needed. Please review below and update the documentation accordingly. Risk Factors/Clinical Indicators/Treatments BMI 19.2 Albumin 2.6 Total protein 5.9 IV drug use Emaciated, disheveled, ill appearing. ASPEN Criteria* Acute Illness Chronic Illness Clinical Characteristic Non-Severe (2 or more criteria present) Severe (2 or more criteria present) Non-Severe (2 or more criteria present) Severe (2 or more criteria present) Energy Intake <75% for >7 days <=50% for >=5 days <75% for >=1 month <=75% for >=1 month Weight Loss 1 week 1 ? 2% >2% N/A N/A 1 month 5% >5% 5% >5% 3 months 7.5 % >7.5% 7.5% >7.5% 6 months N/A N/A 10% >10% 1 year N/A N/A 20% >20% Body Fat Mild Moderate Mild Severe Muscle Mass Mild Moderate Mild Severe Fluid Accumulation Mild Moderate to Severe Mild Severe Reduced Human Resources District Manager Strength N/A Measurably Reduced N/A Measurably Reduced *[facility] Hospitalist, 2017 To ensure the quality of the medical record, based on the above information and the recognized standard for [specify severity] malnutrition, could you please verify in your progress notes which of the following diagnoses best reflects the patient's nutritional status. * Failure to thrive * Malnutrition, mild or moderate/other * Cachectic * No nutritional deficiency * Other (please specify) * Unable to determine Use of terms such as suspected, likely, concern for, or probable (associated with a specific diagnosis that is being evaluated, monitored, or treated as if it exists) are acceptable and can be coded in the inpatient setting, when documented at the time of discharge. Thank you, Zhanna Tripathi [facility], CDIS Extension: [phone] Please use your independent medical judgment in providing your response. THIS QUERY IS PART OF THE PERMANENT MEDICAL RECORD Provider Response: Moderate Protein-Calorie Malnutrition
[2021-01-20] MEDS: Albumin Human 25 % 100 ML IV ×2 (10:11→11:17)
[2021-01-20 10:28] LABS: Alanine Aminotransferase 20 U/L (0-40); Albumin Level 3.2 g/dL (3.5-5.0); Alkaline Phosphatase 77 U/L (39-117); Anion Gap 12 (12-20); Aspartate Amino Transferase 42 U/L (5-37); Bilirubin Total 1.5 mg/dL (0.0-1.0); Blood Urea Nitrogen 18 mg/dL (9-16); Calcium 8.7 mg/dL (8.4-10.2); Carbon Dioxide 23 mmol/L (22-29); Chloride 102 mmol/L (96-108); Creatinine Clr Calc Pharmacy 133.8; Estimated Glomerular Filt Rate > 60; Glucose Random 126 mg/dL (60-115); Magnesium 2.1 mg/dL (1.6-2.6); Potassium 5.2 mmol/L (3.3-5.1); Sodium 132 mmol/L (135-145); Total Protein 6.9 g/dL (6.5-8.0)
--- NOTE | 2021-01-20 10:50 | P.PNIM_ITS ---
Subjective Subjective Date of Service: 01/20/21 Interval History: Very weak. Uncomfortable from abdominal distension. Opioid craving under control. Physical Exam Vital Signs: Vital Signs: Last Vital Signs Temp 97.7 F 01/20/21 07:25 Pulse 100 01/20/21 08:46 Resp 19 01/20/21 07:25 BP 158/103 H 01/20/21 08:46 Pulse Ox 96 01/20/21 07:25 Body Mass Index 19.2 Gen: disheveled, ill apearing, muscle wasting HEENT: sclera anicteric, moist mucus membranes Neck: supple Lungs: clear to auscultation bilaterally Heart: regular rate and rhythm, no murmurs Abd: tense ascites present, tender Ext: no edema Skin: erythema on ankles and feet Neuro: AOx3, no asterixis elicited Psych: appropriate affect Objective Data Active Medications Acetaminophen (Acetaminophen 325 Mg Tablet) 650 mg PO Q6H PRN PRN Reason: Pain, Mild (Pain Scale 1-3) Furosemide (Furosemide 20 Mg Tablet) 20 mg PO BID@0900,1800 [facility]; Protocol Last Admin: 01/20/21 08:47 Dose: 20 mg Documented by: CHASITY Heparin Sodium (Porcine) (Heparin Sodium,Porcine 5,000 Unit/Ml Vial) 5,000 unit SUBCUT Q8H [facility] Last Admin: 01/20/21 06:10 Dose: Not Given Documented by: LISANDRO Non-Admin Reason: paracentesis today Hydromorphone HCl (Hydromorphone Hcl 0.5 Mg/0.5 Ml Syringe) 0.5 mg IVPUSH Q4H PRN; Protocol PRN Reason: Breakthrough Pain Last Admin: 01/20/21 06:04 Dose: 0.5 mg Documented by: LISANDRO Vancomycin HCl 1,000 mg/ (Sodium Chloride) 270 mls @ 270 mls/hr IV Q8H [facility] Last Infusion: 01/20/21 08:51 Dose: 0 mls/hr Documented by: CHASITY Albumin Human (Kedbumin 25 %) 100 mls @ 100 mls/hr IV Q1H [facility] Stop: 01/20/21 11:59 Last Admin: 01/20/21 10:11 Dose: 100 mls/hr Documented by: CHASITY Melatonin (Melatonin 3 Mg Tablet) 6 mg PO BEDTIME PRN PRN Reason: Insomnia Oxycodone HCl (Oxycodone Hcl Immed Release 5 Mg Tablet) 5 mg PO Q6H PRN PRN Reason: Pain, Severe (Pain Scale 7-10) Last Admin: 01/20/21 03:56 Dose: 5 mg Documented by: LISANDRO Pharmacy Consult (Consult Rx Vancomycin Dosing) 1 each MISCELLANE DAILY PRN PRN Reason: Consult order Senna (Sennosides 8.6 Mg Tablet) 17.2 mg PO BEDTIME PRN PRN Reason: Constipation Sodium Chloride (0.9 % Sodium Chloride Flush 3 Ml Syringe) 3 ml IVFLUSH QSHIFT [facility] Last Admin: 01/20/21 08:46 Dose: 3 ml Documented by: CHASITY Spironolactone (Spironolactone 25 Mg Tablet) 12.5 mg PO BID@0900,1800 [facility]; Protocol Last Admin: 01/20/21 08:46 Dose: 12.5 mg Documented by: CHASITY Labs CBC & Chem 7: 01/20/21 06:33 01/20/21 10:00 Labs: Laboratory Results - last 24 hr 01/17/21 01/19/21 01/20/21 20:40 20:57 06:33 MCV 89.8 MCH 28.5 MCHC 31.7 RDW 15.4 Plt Count 204 MPV 8.4 L Immature Gran % (Auto) 2.1 H Neut % (Auto) 87.8 H Lymph % (Auto) 5.2 L [place] % (Auto) 4.5 Eos % (Auto) 0.2 Baso % (Auto) 0.2 Lymph # (Auto) 1.8 [place] # (Auto) 1.6 H Eos # (Auto) 0.1 Baso # (Auto) 0.1 Abs Immat Gran (auto) 0.72 H Absolute Neuts (auto) 30.2 H Absolute Nucleated RBC 0.000 Nucleated RBC % (auto) 0.0 Smear Tech's Comments VERIFIED Smear Path Review SEE NOTE PT INR Anion Gap Estim Creat Clear Calc Estimated GFR Random Glucose Calcium Magnesium Total Bilirubin AST ALT Alkaline Phosphatase Ammonia Total Protein Albumin Vancomycin Trough 13.7 01/20/21 01/20/21 01/20/21 06:33 06:33 10:00 MCV MCH MCHC RDW Plt Count MPV Immature Gran % (Auto) Neut % (Auto) Lymph % (Auto) [place] % (Auto) Eos % (Auto) Baso % (Auto) Lymph # (Auto) [place] # (Auto) Eos # (Auto) Baso # (Auto) Abs Immat Gran (auto) Absolute Neuts (auto) Absolute Nucleated RBC Nucleated RBC % (auto) Smear Tech's Comments Smear Path Review PT 17.1 H INR 1.5 H Anion Gap 12 Estim Creat Clear Calc 133.8 Estimated GFR > 60 Random Glucose 126 H Calcium 8.7 D Magnesium 2.1 Total Bilirubin 1.5 H AST 42 H ALT 20 Alkaline Phosphatase 77 Ammonia 38 Total Protein 6.9 Albumin 3.2 L D Vancomycin Trough Assessment and Plan (1) Hyponatremia: Status: Acute (2) Septic pulmonary embolism: Status: Acute (3) Cirrhosis: Status: Acute (4) Opioid use disorder: Status: Acute (5) Ascites: Status: Acute Assessment and Plan: hospital d#4 35yo M who uses injection heroin and was diagnosed with MRSA bacteremia in the ED 01/02/21 but could not be contacted to be called back admitted 01/15-01/17/21 with ascites growing MRSA [[id number] WBCs, 86% PMNs] and persistent positive BCx growing MRSA but signed out AMA 01/17/21 re-admitted 01/17/21 and given naloxone for suspected heroin overdose still bacteremic # MRSA bacteremia - continue vancomycin, ID following, no vegetation on TTE though limited study and BCx still positive from 01/17/21. will need 6 wk IV vancomycin from 1st negative BCx. check BCx today and if still positive may need MICHELLE # MRSA peritonitis - continue vancomycin # decompensated cirrhosis with ascites - repeat paracentesis today therapeutic + diagnostic - will give salt-poor albumin 50g today - started furosemide + spironolactone; monitor electrolytes # HCV reinfection [viral load 274k] - will need outpt treatment at hepatology center # septic pulmonary emboli - due to MRSA bacteremia; not hypoxic # leukocytosis - likely leukemoid reaction from infection, Heme consult done, bcr/abl pending # cellulitis of feet + hands - continue vancomycin # L glenohumeral/bursal fluid collection - not clinically consistent with septic arthritis per Orthopedics # hypoNa - mild, likely due to cirrhosis # LUQ hematoma - per Surgery, no intervention indicated # opioid use disorder - Addiction Medicine following, on methadone - got naloxone in ED for overdose # moderate protein-calorie malnutrition - Ensure # VTE ppx - UFH # dispo - once BCx clear, needs PICC line and STR Quality Stroke Does the patient have a stroke diagnosis?: No VTE Prior VTE?: No VTE Risk Level:: Medical - moderate - high VTE Device Contraindication: Treatment Not Indicated VTE Drug Contraindication: N/A - Med Ordered
--- NOTE | 2021-01-20 11:13 | MHC.CM.PN ---
Per ROUNDS discussion,Patient is not yet medically cleared for dc (MRSA, Tap today, BC not cleared).[facility] for LT IVABT (Methadone) is the goal for dc an CM will continue to follow.
--- NOTE | 2021-01-20 12:44 | HO.RADPN ---
RADIOLOGY Narrative Narrative: RLQ paracentesis performed using 5 Fr angiocath. 7L karen colored fluid removed. Diagnostic specimen sent. Patient received IV albumin.
[2021-01-20] MEDS: Lidocaine HCl 1 % 20 ML VIAL 5 ML SUBCUT (13:07)
[2021-01-20 13:28] LABS: MN% 16.2 %; PMN% 83.8 %; RBC Peritoneal Fluid 0.002 X10*6/uL
[2021-01-20] MEDS: Heparin Sodium,Porcine 5,000 UNIT/ML VIAL 5000 UNIT SUBCUT ×2 (13:57→22:17)
[2021-01-20 14:00] LABS: Lymphocyte Peritoneal Fl 3 %; Monocytes Peritoneal Fl 3 %; Neutrophils Peritoneal Fluid 87 %; Other Peritioneal Fl 7 %
[2021-01-20 14:01] LABS: BF Shift QC OK YES; Man Diluent Bkgrd OK YES
--- NOTE | 2021-01-20 15:46 | HO.ADDICTPRO ---
Subjective Subjective Date of Service: 01/20/21 Reason For Visit: Bacteremia Interim History: Seen this morning, very uncomfortable Paracentisis this afternoon, patient reporting significant relief after this, but still experiencing withdrawal sx 35mg methadone this morning. Sx improved some, but patient requesting increase in dose. Has not been sedated today. Awake, alert and engaged each time he was seen by this sign writer letterer or painter. Anxious about acute medical issues. Review of Systems Acute medical concerns: Yes Medical Review of Systems: unchanged Mental Status Exam Mental Status Exam Patient Appearance: Disheveled and Perspiring Patient Orientation: Person, Place, Time and Situation Level of Consciousness: Awake, Appropriate and Alert Patient Behavior: Appropriate Mood Description: Anxious Affect Description: Anxious Patient Cognition Impaired: No Ability to Follow Directions: Excellent Speech Pattern: Clear Judgement: Fair Diagnostics Vital Signs (24Hr): Vital Signs - 24 hr 01/19/21 16:54 01/19/21 19:00 01/19/21 22:06 Temperature 96.9 F Pulse Rate 98 66 Respiratory Rate 20 16 Blood Pressure 150/85 H 188/97 H Pulse Oximetry 98 01/19/21 22:10 01/19/21 23:09 01/20/21 00:13 Temperature 97.3 F Pulse Rate 94 Respiratory Rate 20 Blood Pressure 158/98 H 173/100 H 160/100 H Pulse Oximetry 97 01/20/21 03:49 01/20/21 06:04 01/20/21 07:25 Temperature 98.0 F 97.7 F Pulse Rate 89 100 Respiratory Rate 17 18 19 Blood Pressure 156/101 H 158/103 H Pulse Oximetry 96 96 01/20/21 08:46 01/20/21 11:35 01/20/21 13:15 Temperature 97.9 F Pulse Rate 100 101 H 98 Respiratory Rate 20 Blood Pressure 158/103 H 179/102 H 155/84 H Pulse Oximetry 95 96 01/20/21 13:45 01/20/21 15:04 Temperature 97.1 F Pulse Rate 88 94 Respiratory Rate 20 Blood Pressure 144/80 H 147/85 H Pulse Oximetry 95 95 Body Mass Index 19.2 Labs Results: 01/20/21 06:33 01/20/21 10:00 Labs: Laboratory Results - last 48 hr 01/17/21 01/18/21 01/19/21 20:40 21:15 05:58 WBC 37.6 H* RBC 4.52 L Hgb 13.0 L Hct 40.5 L MCV 89.6 MCH 28.8 MCHC 32.1 RDW 15.1 Plt Count 237 MPV 8.4 L Immature Gran % (Auto) 2.2 H Neut % (Auto) 91.5 H Lymph % (Auto) 3.2 L [place] % (Auto) 2.8 Eos % (Auto) 0.1 Baso % (Auto) 0.2 Lymph # (Auto) 1.2 [place] # (Auto) 1.1 Eos # (Auto) 0.0 Baso # (Auto) 0.1 Abs Immat Gran (auto) 0.81 H Absolute Neuts (auto) 34.4 H Absolute Nucleated RBC 0.000 Nucleated RBC % (auto) 0.0 Smear Tech's Comments VERIFIED Smear Path Review SEE NOTE PT INR Sodium Potassium Chloride Carbon Dioxide Anion Gap BUN Creatinine Estim Creat Clear Calc Estimated GFR Random Glucose Fasting Glucose Calcium Magnesium Total Bilirubin AST ALT Alkaline Phosphatase Ammonia Total Protein Albumin Peritoneal WBC Peritoneal RBC Periton Neutrophils Periton Lymphocytes Peritoneal Monocytes Peritoneal Other Cells Vancomycin Trough 10.3 01/19/21 01/19/21 01/20/21 05:59 20:57 06:33 WBC 34.4 H* RBC 4.60 Hgb 13.1 L Hct 41.3 L MCV 89.8 MCH 28.5 MCHC 31.7 RDW 15.4 Plt Count 204 MPV 8.4 L Immature Gran % (Auto) 2.1 H Neut % (Auto) 87.8 H Lymph % (Auto) 5.2 L [place] % (Auto) 4.5 Eos % (Auto) 0.2 Baso % (Auto) 0.2 Lymph # (Auto) 1.8 [place] # (Auto) 1.6 H Eos # (Auto) 0.1 Baso # (Auto) 0.1 Abs Immat Gran (auto) 0.72 H Absolute Neuts (auto) 30.2 H Absolute Nucleated RBC 0.000 Nucleated RBC % (auto) 0.0 Smear Tech's Comments VERIFIED Smear Path Review PT INR Sodium 133 L Potassium 4.2 Chloride 102 Carbon Dioxide 20 L Anion Gap 15 BUN 19 H Creatinine 0.57 Estim Creat Clear Calc 147.9 Estimated GFR > 60 Random Glucose Fasting Glucose 123 H Calcium 7.9 L D Magnesium Total Bilirubin 1.4 H AST 34 ALT 22 Alkaline Phosphatase 83 D Ammonia Total Protein 5.9 L Albumin 2.6 L Peritoneal WBC Peritoneal RBC Periton Neutrophils Periton Lymphocytes Peritoneal Monocytes Peritoneal Other Cells Vancomycin Trough 13.7 01/20/21 01/20/21 01/20/21 06:33 06:33 10:00 WBC RBC Hgb Hct MCV MCH MCHC RDW Plt Count MPV Immature Gran % (Auto) Neut % (Auto) Lymph % (Auto) [place] % (Auto) Eos % (Auto) Baso % (Auto) Lymph # (Auto) [place] # (Auto) Eos # (Auto) Baso # (Auto) Abs Immat Gran (auto) Absolute Neuts (auto) Absolute Nucleated RBC Nucleated RBC % (auto) Smear Tech's Comments Smear Path Review PT 17.1 H INR 1.5 H Sodium 132 L Potassium 5.2 H D Chloride 102 Carbon Dioxide 23 Anion Gap 12 BUN 18 H Creatinine 0.63 Estim Creat Clear Calc 133.8 Estimated GFR > 60 Random Glucose 126 H Fasting Glucose Calcium 8.7 D Magnesium 2.1 Total Bilirubin 1.5 H AST 42 H ALT 20 Alkaline Phosphatase 77 Ammonia 38 Total Protein 6.9 Albumin 3.2 L D Peritoneal WBC Peritoneal RBC Periton Neutrophils Periton Lymphocytes Peritoneal Monocytes Peritoneal Other Cells Vancomycin Trough 01/20/21 12:30 WBC RBC Hgb Hct MCV MCH MCHC RDW Plt Count MPV Immature Gran % (Auto) Neut % (Auto) Lymph % (Auto) [place] % (Auto) Eos % (Auto) Baso % (Auto) Lymph # (Auto) [place] # (Auto) Eos # (Auto) Baso # (Auto) Abs Immat Gran (auto) Absolute Neuts (auto) Absolute Nucleated RBC Nucleated RBC % (auto) Smear Tech's Comments Smear Path Review PT INR Sodium Potassium Chloride Carbon Dioxide Anion Gap BUN Creatinine Estim Creat Clear Calc Estimated GFR Random Glucose Fasting Glucose Calcium Magnesium Total Bilirubin AST ALT Alkaline Phosphatase Ammonia Total Protein Albumin Peritoneal WBC 11.274 Peritoneal RBC 0.002 Periton Neutrophils 87 Periton Lymphocytes 3 Peritoneal Monocytes 3 Peritoneal Other Cells 7 Vancomycin Trough Imaging Radiology Impressions: ITS Impressions Chest X-Ray 01/17/21 21:02 IMPRESSION: Multifocal airspace opacities are new/increased when compared to the chest radiograph from 01/02/2021 and correlate with septic emboli disease and multifocal pneumonia noted on the CT from 01/15/2021. Small left pleural effusion. Medications Medications Current Medications Acetaminophen (Acetaminophen 325 Mg Tablet) 650 mg PO Q6H PRN PRN Reason: Pain, Mild (Pain Scale 1-3) Furosemide (Furosemide 20 Mg Tablet) 20 mg PO BID@0900,1800 [facility]; Protocol Last Admin: 01/20/21 08:47 Dose: 20 mg Documented by: Heparin Sodium (Porcine) (Heparin Sodium,Porcine 5,000 Unit/Ml Vial) 5,000 unit SUBCUT Q8H [facility] Last Admin: 01/20/21 13:57 Dose: 5,000 unit Documented by: Hydromorphone HCl (Hydromorphone Hcl 0.5 Mg/0.5 Ml Syringe) 0.5 mg IVPUSH Q4H PRN; Protocol PRN Reason: Breakthrough Pain Last Admin: 01/20/21 13:05 Dose: 0.5 mg Documented by: Vancomycin HCl 1,000 mg/ (Sodium Chloride) 270 mls @ 270 mls/hr IV Q8H [facility] Last Infusion: 01/20/21 15:06 Dose: Infused Documented by: Melatonin (Melatonin 3 Mg Tablet) 6 mg PO BEDTIME PRN PRN Reason: Insomnia Methadone HCl (Methadone Hcl 20 Mg/2 Ml Oral.Conc) 10 mg PO ONCE ONE Stop: 01/20/21 15:45 Oxycodone HCl (Oxycodone Hcl Immed Release 5 Mg Tablet) 5 mg PO Q6H PRN PRN Reason: Pain, Severe (Pain Scale 7-10) Last Admin: 01/20/21 03:56 Dose: 5 mg Documented by: Pharmacy Consult (Consult Rx Vancomycin Dosing) 1 each MISCELLANE DAILY PRN PRN Reason: Consult order Senna (Sennosides 8.6 Mg Tablet) 17.2 mg PO BEDTIME PRN PRN Reason: Constipation Sodium Chloride (0.9 % Sodium Chloride Flush 3 Ml Syringe) 3 ml IVFLUSH QSHIFT [facility] Last Admin: 01/20/21 15:15 Dose: 3 ml Documented by: Spironolactone (Spironolactone 25 Mg Tablet) 12.5 mg PO BID@0900,1800 [facility]; Protocol Last Admin: 01/20/21 08:46 Dose: 12.5 mg Documented by: Allergies Allergies Allergy/AdvReac Type Severity Reaction Status Date / Time No Known Allergies Allergy Verified 01/02/21 06:31 [No Known Allergies*] Assessment & Plan Assessment & Plan (1) Opioid use disorder: Status: Acute Code(s): F11.90 - Opioid use, unspecified, uncomplicated Assessment and Plan: additional 10mg methadone today tomorrow methadone 45mg. Continue to monitor for oversedation I spent __30____ minutes with the patient and/or on the patient floor today, greater than?50% of which was spent counseling/coordinating care.
[2021-01-20] MEDS: methADONE HCl 20 MG/2 ML ORAL.CONC 10 MG PO (16:58)
[2021-01-20 21:38] LABS: Vancomycin Trough 14.6 mcg/mL (10.0-20.0)
[2021-01-21] VITALS (11 sets, daily range): BP systolic 126–159; BP diastolic 71–98; PULSE 109–116; RESP 14–20; TEMP 36.6–37.2; O2SAT 91–98
[2021-01-21] MEDS: 0.9 % Sodium Chloride Flush 3 ML SYRINGE IVFLUSH ×2 (00:39→15:29)
[2021-01-21] MEDS: HYDROmorphone HCl 0.5 MG/0.5 ML SYRINGE IVPUSH ×4 (00:44→17:33)
[2021-01-21] MEDS: vancomycin HCL 1,000 MG in 0.9 % Sodium Chloride 250 ML 270 MG IV ×2 (06:30→14:19)
[2021-01-21] MEDS: Heparin Sodium,Porcine 5,000 UNIT/ML VIAL 5000 UNIT SUBCUT ×3 (06:32→22:00)
[2021-01-21] MEDS: oxyCODONE HCl Immed Release 5 MG TABLET PO ×2 (06:38→20:20)
[2021-01-21 06:39] LABS: Basophils Absolute Auto 0.1 X10*3/uL (0.0-0.2); Basophils Percent Auto 0.2 % (0-2); Eosinophils Percent Auto 0.1 % (0-4); Hematocrit 41.9 % (42.0-52.0); Hemoglobin 13.9 g/dl (14.0-18.0); Imm Gran Abs Auto 0.75 X10*3/uL (0.00-0.03); Imm Gran Pct Auto 2.3 % (0.0-0.4); Lymphocytes Absolute Auto 1.8 X10*3/uL (1.2-4.9); Lymphocytes Percent Auto 5.7 % (20-40); MANUAL DIFF FLAG SCAN; Mean Corpuscular HGB Conc 33.2 g/dl (31.0-36.0); Mean Corpuscular Hemoglobin 28.8 pg (27.0-33.0); Mean Corpuscular Volume 86.9 fL (80.0-98.0); Mean Platelet Volume 8.5 fL (9.4-12.4); Monocytes Absolute Auto 1.9 X10*3/uL (0.1-1.2); Monocytes Percent Auto 5.8 % (2-11); Neutrophils Absolute Auto 27.8 x10*3/uL (2.0-8.3); Neutrophils Percent Auto 85.9 % (45-73); Platelet Count 216 X10*3/uL (160-400); Red Blood Count 4.82 X10*6/uL (4.60-5.80); Red Cell Distribution Width 15.3 % (11.0-16.0); SCAN SMEAR FLAG 1
[2021-01-21 06:59] LABS: Alanine Aminotransferase 18 U/L (0-40); Alkaline Phosphatase 62 U/L (39-117); Anion Gap 12 (12-20); Aspartate Amino Transferase 32 U/L (5-37); Bilirubin Total 1.8 mg/dL (0.0-1.0); Blood Urea Nitrogen 17 mg/dL (9-16); Calcium 7.9 mg/dL (8.4-10.2); Carbon Dioxide 25 mmol/L (22-29); Chloride 100 mmol/L (96-108); Estimated Glomerular Filt Rate > 60; Glucose Fasting 98 mg/dL (60-99); Potassium 4.5 mmol/L (3.3-5.1); Sodium 132 mmol/L (135-145); Total Protein 5.9 g/dL (6.5-8.0)
[2021-01-21 07:00] LABS: White Blood Count 32.3 X10*3/uL (4.8-10.8)
[2021-01-21 07:08] LABS: SLIDE REVIEW VERIFIED
[2021-01-21] MEDS: Furosemide 20 MG TABLET PO ×2 (08:09→17:29)
[2021-01-21] MEDS: Spironolactone 25 MG TABLET 12.5 MG PO (08:10)
[2021-01-21] MEDS: methADONE HCl 20 MG/2 ML ORAL.CONC 45 MG PO (08:16)
--- NOTE | 2021-01-21 09:51 | MHC.CM.PN ---
Per Patient, he received the [facility] Covid Vax at [facility].
--- NOTE | 2021-01-21 10:34 | MHC.RECOVRN ---
Met with pt to f/u regarding methadone dose and titration. Pt laying in bed, eyes closed but easily awakes to voice. Pt reports feeling better, denies withdrawal symptoms at this time. Elvira Chavez APRN, aware. Will continue to follow.
--- NOTE | 2021-01-21 13:14 | PM.IDPN ---
Subjective Subjective Date of Service: 01/20/21 Critical Care Time (minutes): 15 Comment: he has no complaints sleepy Objective Data Labs CBC & Chem 7: 01/30/21 10:00 02/01/21 05:02 Labs: Laboratory Results - last 24 hr 01/20/21 01/20/21 01/21/21 12:30 21:03 06:20 WBC 32.3 H* RBC 4.82 Hgb 13.9 L Hct 41.9 L MCV 86.9 MCH 28.8 MCHC 33.2 RDW 15.3 Plt Count 216 MPV 8.5 L Immature Gran % (Auto) 2.3 H Neut % (Auto) 85.9 H Lymph % (Auto) 5.7 L [place] % (Auto) 5.8 Eos % (Auto) 0.1 Baso % (Auto) 0.2 Lymph # (Auto) 1.8 [place] # (Auto) 1.9 H Eos # (Auto) 0.0 Baso # (Auto) 0.1 Abs Immat Gran (auto) 0.75 H Absolute Neuts (auto) 27.8 H Absolute Nucleated RBC 0.000 Nucleated RBC % (auto) 0.0 Smear Tech's Comments VERIFIED Sodium Potassium Chloride Carbon Dioxide Anion Gap BUN Creatinine Estim Creat Clear Calc Estimated GFR Fasting Glucose Calcium Total Bilirubin AST ALT Alkaline Phosphatase Total Protein Albumin Peritoneal WBC 11.274 Peritoneal RBC 0.002 Periton Neutrophils 87 Periton Lymphocytes 3 Peritoneal Monocytes 3 Peritoneal Other Cells 7 Vancomycin Trough 14.6 01/21/21 06:20 WBC RBC Hgb Hct MCV MCH MCHC RDW Plt Count MPV Immature Gran % (Auto) Neut % (Auto) Lymph % (Auto) [place] % (Auto) Eos % (Auto) Baso % (Auto) Lymph # (Auto) [place] # (Auto) Eos # (Auto) Baso # (Auto) Abs Immat Gran (auto) Absolute Neuts (auto) Absolute Nucleated RBC Nucleated RBC % (auto) Smear Tech's Comments Sodium 132 L Potassium 4.5 Chloride 100 Carbon Dioxide 25 Anion Gap 12 BUN 17 H Creatinine 0.62 Estim Creat Clear Calc 136.0 Estimated GFR > 60 Fasting Glucose 98 Calcium 7.9 L D Total Bilirubin 1.8 H AST 32 ALT 18 Alkaline Phosphatase 62 Total Protein 5.9 L Albumin 3.0 L Peritoneal WBC Peritoneal RBC Periton Neutrophils Periton Lymphocytes Peritoneal Monocytes Peritoneal Other Cells Vancomycin Trough Microbiology Microbiology Results: Microbiology 01/20/21 12:30 Ascites Fluid Gram Stain - Final 01/20/21 12:30 Ascites Fluid Anaerobic Culture - Preliminary Culture in progress. 01/20/21 12:30 Ascites Fluid Body Fluid Culture - Preliminary Staphylococcus aureus 01/20/21 06:33 Blood - Venous Blood Culture - Preliminary No growth after 24 hours. 01/20/21 06:33 Blood - Venous Blood Culture - Preliminary No growth after 24 hours. Physical Exam Vital Signs: Vital Signs: Last Vital Signs Temp 98.4 F 01/21/21 10:47 Pulse 115 H 01/21/21 10:47 Resp 16 01/21/21 10:47 BP 150/88 H 01/21/21 10:47 Pulse Ox 98 01/21/21 10:47 Body Mass Index 19.2 Const: General: cooperative Eyes: General: appearance normal, both eyes and all related structures Resp: Effort & Inspection: normal respiratory effort Cardio: Rate: regular rate Rhythm: regular rhythm GI: Palpation (GI): Soft to palpation and nontender Assessment and Plan Assessment and plan (1) Leucocytosis: Status: Acute Assessment and Plan: MRSA bacteremia He has had seven liters drained abdomen. He has had MRSA bactermia and neg repeat so far Would continue Vancomycin and give four weeks, No MICHELLE if still negative bacteremia,otherwise do MICHELLE (2) Septic pulmonary embolism: Status: Acute Time Spent With Patient Time: Total time spent is greater than 50% in coordination of care (as documented) at patient's floor/unit and/or counseling patient: Time with patient: 15 - 24 minutes
[2021-01-21] MEDS: Albumin Human 25 % 50 ML 100 ML IV (13:33)
--- NOTE | 2021-01-21 16:08 | P.PNADD_ITS ---
Subjective Subjective Date of Service: 01/21/21 Reason For Visit: Bacteremia Interim History: Patient reports he feels relief from withdrawal sx with 45mg of methadone At the time of visit, he had been able to eat a little He is experiencing some abdominal discomfort and report she will likely go in for paracentesis again tomorrow Discussed previous methadone dosing, he reports he has been stable at 56mg and at his highest dose, he has been at 85mg. Would like to continue titration Review of Systems Constitutional: Reports as per HPI Mental Status Exam Mental Status Exam Patient Appearance: Appropriate (hospital attire, thin) Patient Orientation: Person, Place, Time and Situation Level of Consciousness: Awake, Appropriate and Alert Patient Behavior: Appropriate and Talkative Mood Description: Calm Affect Description: Calm Patient Cognition Impaired: No Ability to Follow Directions: Excellent Speech Pattern: Clear Thought Process: Goal Oriented Thought Content: positive for Goal Oriented Judgement: Good Diagnostics Vital Signs (24Hr): Vital Signs - 24 hr 01/20/21 16:58 01/20/21 19:05 01/21/21 00:00 Temperature 97.6 F 98.2 F Pulse Rate 94 89 109 H Respiratory Rate 20 16 Blood Pressure 147/85 H 134/74 126/71 Pulse Oximetry 99 98 01/21/21 00:44 01/21/21 04:00 01/21/21 04:44 Temperature 98.0 F Pulse Rate 116 H Respiratory Rate 18 16 18 Blood Pressure 153/92 H Pulse Oximetry 98 01/21/21 08:10 01/21/21 10:32 01/21/21 10:47 Temperature 98.4 F Pulse Rate 115 H 115 H Respiratory Rate 14 16 Blood Pressure 150/88 H 150/88 H Pulse Oximetry 98 01/21/21 14:00 01/21/21 15:01 Temperature 97.8 F Pulse Rate 110 H 113 H Respiratory Rate 16 20 Blood Pressure 153/98 H 137/85 Pulse Oximetry 95 96 Body Mass Index 19.2 Labs Results: 01/21/21 06:20 01/21/21 06:20 Labs: Laboratory Results - last 48 hr 01/17/21 01/19/21 01/20/21 20:40 20:57 06:33 WBC 34.4 H* RBC 4.60 Hgb 13.1 L Hct 41.3 L MCV 89.8 MCH 28.5 MCHC 31.7 RDW 15.4 Plt Count 204 MPV 8.4 L Immature Gran % (Auto) 2.1 H Neut % (Auto) 87.8 H Lymph % (Auto) 5.2 L [place] % (Auto) 4.5 Eos % (Auto) 0.2 Baso % (Auto) 0.2 Lymph # (Auto) 1.8 [place] # (Auto) 1.6 H Eos # (Auto) 0.1 Baso # (Auto) 0.1 Abs Immat Gran (auto) 0.72 H Absolute Neuts (auto) 30.2 H Absolute Nucleated RBC 0.000 Nucleated RBC % (auto) 0.0 Smear Tech's Comments VERIFIED Smear Path Review SEE NOTE PT INR Sodium Potassium Chloride Carbon Dioxide Anion Gap BUN Creatinine Estim Creat Clear Calc Estimated GFR Random Glucose Fasting Glucose Calcium Magnesium Total Bilirubin AST ALT Alkaline Phosphatase Ammonia Total Protein Albumin Peritoneal WBC Peritoneal RBC Periton Neutrophils Periton Lymphocytes Peritoneal Monocytes Peritoneal Other Cells Vancomycin Trough 13.7 01/20/21 01/20/21 01/20/21 06:33 06:33 10:00 WBC RBC Hgb Hct MCV MCH MCHC RDW Plt Count MPV Immature Gran % (Auto) Neut % (Auto) Lymph % (Auto) [place] % (Auto) Eos % (Auto) Baso % (Auto) Lymph # (Auto) [place] # (Auto) Eos # (Auto) Baso # (Auto) Abs Immat Gran (auto) Absolute Neuts (auto) Absolute Nucleated RBC Nucleated RBC % (auto) Smear Tech's Comments Smear Path Review PT 17.1 H INR 1.5 H Sodium 132 L Potassium 5.2 H D Chloride 102 Carbon Dioxide 23 Anion Gap 12 BUN 18 H Creatinine 0.63 Estim Creat Clear Calc 133.8 Estimated GFR > 60 Random Glucose 126 H Fasting Glucose Calcium 8.7 D Magnesium 2.1 Total Bilirubin 1.5 H AST 42 H ALT 20 Alkaline Phosphatase 77 Ammonia 38 Total Protein 6.9 Albumin 3.2 L D Peritoneal WBC Peritoneal RBC Periton Neutrophils Periton Lymphocytes Peritoneal Monocytes Peritoneal Other Cells Vancomycin Trough 01/20/21 01/20/21 01/21/21 12:30 21:03 06:20 WBC 32.3 H* RBC 4.82 Hgb 13.9 L Hct 41.9 L MCV 86.9 MCH 28.8 MCHC 33.2 RDW 15.3 Plt Count 216 MPV 8.5 L Immature Gran % (Auto) 2.3 H Neut % (Auto) 85.9 H Lymph % (Auto) 5.7 L [place] % (Auto) 5.8 Eos % (Auto) 0.1 Baso % (Auto) 0.2 Lymph # (Auto) 1.8 [place] # (Auto) 1.9 H Eos # (Auto) 0.0 Baso # (Auto) 0.1 Abs Immat Gran (auto) 0.75 H Absolute Neuts (auto) 27.8 H Absolute Nucleated RBC 0.000 Nucleated RBC % (auto) 0.0 Smear Tech's Comments VERIFIED Smear Path Review PT INR Sodium Potassium Chloride Carbon Dioxide Anion Gap BUN Creatinine Estim Creat Clear Calc Estimated GFR Random Glucose Fasting Glucose Calcium Magnesium Total Bilirubin AST ALT Alkaline Phosphatase Ammonia Total Protein Albumin Peritoneal WBC 11.274 Peritoneal RBC 0.002 Periton Neutrophils 87 Periton Lymphocytes 3 Peritoneal Monocytes 3 Peritoneal Other Cells 7 Vancomycin Trough 14.6 01/21/21 06:20 WBC RBC Hgb Hct MCV MCH MCHC RDW Plt Count MPV Immature Gran % (Auto) Neut % (Auto) Lymph % (Auto) [place] % (Auto) Eos % (Auto) Baso % (Auto) Lymph # (Auto) [place] # (Auto) Eos # (Auto) Baso # (Auto) Abs Immat Gran (auto) Absolute Neuts (auto) Absolute Nucleated RBC Nucleated RBC % (auto) Smear Tech's Comments Smear Path Review PT INR Sodium 132 L Potassium 4.5 Chloride 100 Carbon Dioxide 25 Anion Gap 12 BUN 17 H Creatinine 0.62 Estim Creat Clear Calc 136.0 Estimated GFR > 60 Random Glucose Fasting Glucose 98 Calcium 7.9 L D Magnesium Total Bilirubin 1.8 H AST 32 ALT 18 Alkaline Phosphatase 62 Ammonia Total Protein 5.9 L Albumin 3.0 L Peritoneal WBC Peritoneal RBC Periton Neutrophils Periton Lymphocytes Peritoneal Monocytes Peritoneal Other Cells Vancomycin Trough Imaging Radiology Impressions: ITS Impressions Chest X-Ray 01/17/21 21:02 IMPRESSION: Multifocal airspace opacities are new/increased when compared to the chest radiograph from 01/02/2021 and correlate with septic emboli disease and multifocal pneumonia noted on the CT from 01/15/2021. Small left pleural effusion. Paracentesis Ultrasound 01/20/21 13:00 IMPRESSION: Ultrasound-guided paracentesis. Medications Medications Current Medications Acetaminophen (Acetaminophen 325 Mg Tablet) 650 mg PO Q6H PRN PRN Reason: Pain, Mild (Pain Scale 1-3) Furosemide (Furosemide 20 Mg Tablet) 20 mg PO BID@0900,1800 [facility]; Protocol Last Admin: 01/21/21 08:09 Dose: 20 mg Documented by: Heparin Sodium (Porcine) (Heparin Sodium,Porcine 5,000 Unit/Ml Vial) 5,000 unit SUBCUT Q8H [facility] Last Admin: 01/21/21 15:29 Dose: 5,000 unit Documented by: Hydromorphone HCl (Hydromorphone Hcl 0.5 Mg/0.5 Ml Syringe) 0.5 mg IVPUSH Q4H PRN; Protocol PRN Reason: Breakthrough Pain Last Admin: 01/21/21 10:32 Dose: 0.5 mg Documented by: Vancomycin HCl 1,000 mg/ (Sodium Chloride) 270 mls @ 270 mls/hr IV Q8H [facility] Last Infusion: 01/21/21 15:29 Dose: Infused Documented by: Albumin Human (Kedbumin 25 %) 100 mls @ 100 mls/hr IV BID [facility] Stop: 01/22/21 09:59 Melatonin (Melatonin 3 Mg Tablet) 6 mg PO BEDTIME PRN PRN Reason: Insomnia Methadone HCl (Methadone Hcl 20 Mg/2 Ml Oral.Conc) 50 mg PO DAILY [facility] Oxycodone HCl (Oxycodone Hcl Immed Release 5 Mg Tablet) 5 mg PO Q6H PRN PRN Reason: Pain, Severe (Pain Scale 7-10) Last Admin: 01/21/21 06:38 Dose: 5 mg Documented by: Pharmacy Consult (Consult Rx Vancomycin Dosing) 1 each MISCELLANE DAILY PRN PRN Reason: Consult order Pharmacy Consult (Consult Rx Vancomycin Dosing) 1 each MISCELLANE DAILY PRN PRN Reason: Consult order Senna (Sennosides 8.6 Mg Tablet) 17.2 mg PO BEDTIME PRN PRN Reason: Constipation Sodium Chloride (0.9 % Sodium Chloride Flush 3 Ml Syringe) 3 ml IVFLUSH QSHIFT [facility] Last Admin: 01/21/21 15:29 Dose: 3 ml Documented by: Spironolactone (Spironolactone 25 Mg Tablet) 25 mg PO BID@0900,1800 [facility]; Protocol Allergies Allergies Allergy/AdvReac Type Severity Reaction Status Date / Time No Known Allergies Allergy Verified 01/02/21 06:31 [No Known Allergies*] Assessment & Plan Assessment & Plan (1) Opioid use disorder: Status: Acute Code(s): F11.90 - Opioid use, unspecified, uncomplicated Assessment and Plan: * Increase methadone to 50mg tomorrow I spent ___15___ minutes with the patient and/or on the patient floor today, greater than?50% of which was spent counseling/coordinating care.
--- NOTE | 2021-01-21 16:36 | P.PNIM_ITS ---
Subjective Subjective Date of Service: 01/21/21 Interval History: MRSA bacteremia, peritonitis, ascites. Review of Systems Patient still has some abdominal discomfort since still has ascites seems slightly better than yesterday since removed 7 L fluid yesterday Denies any nausea or vomiting Encouraged for p.o. nutrition. Denies any chest pain or shortness of breath or cough or phlegm or fever. Physical Exam Vital Signs: Vital Signs: Last Vital Signs Temp 97.8 F 01/21/21 15:01 Pulse 113 H 01/21/21 15:01 Resp 20 01/21/21 15:01 BP 137/85 01/21/21 15:01 Pulse Ox 96 01/21/21 15:01 Body Mass Index 19.2 Gen: disheveled, ill apearing, chronically sick . HEENT: sclera anicteric, moist mucus membranes Neck: supple Lungs: clear to auscultation bilaterally Heart: regular rate and rhythm, no murmurs Abd: still has moderate ascitis, mild discomfort , less tense , bm present. Ext: no edema Skin: erythema on ankles and feet Neuro: AOx3, no asterixis elicited Psych: appropriate affect Objective Data Active Medications Acetaminophen (Acetaminophen 325 Mg Tablet) 650 mg PO Q6H PRN PRN Reason: Pain, Mild (Pain Scale 1-3) Furosemide (Furosemide 20 Mg Tablet) 20 mg PO BID@0900,1800 [facility]; Protocol Last Admin: 01/21/21 08:09 Dose: 20 mg Documented by: REGINO Heparin Sodium (Porcine) (Heparin Sodium,Porcine 5,000 Unit/Ml Vial) 5,000 unit SUBCUT Q8H [facility] Last Admin: 01/21/21 15:29 Dose: 5,000 unit Documented by: MARITZA Hydromorphone HCl (Hydromorphone Hcl 0.5 Mg/0.5 Ml Syringe) 0.5 mg IVPUSH Q4H PRN; Protocol PRN Reason: Breakthrough Pain Last Admin: 01/21/21 10:32 Dose: 0.5 mg Documented by: REGINO Vancomycin HCl 1,000 mg/ (Sodium Chloride) 270 mls @ 270 mls/hr IV Q8H [facility] Last Infusion: 01/21/21 15:29 Dose: 0 mls/hr Documented by: MARITZA Albumin Human (Kedbumin 25 %) 100 mls @ 100 mls/hr IV BID [facility] Stop: 01/22/21 09:59 Melatonin (Melatonin 3 Mg Tablet) 6 mg PO BEDTIME PRN PRN Reason: Insomnia Methadone HCl (Methadone Hcl 20 Mg/2 Ml Oral.Conc) 50 mg PO DAILY [facility] Oxycodone HCl (Oxycodone Hcl Immed Release 5 Mg Tablet) 5 mg PO Q6H PRN PRN Reason: Pain, Severe (Pain Scale 7-10) Last Admin: 01/21/21 06:38 Dose: 5 mg Documented by: LISANDRO Pharmacy Consult (Consult Rx Vancomycin Dosing) 1 each MISCELLANE DAILY PRN PRN Reason: Consult order Pharmacy Consult (Consult Rx Vancomycin Dosing) 1 each MISCELLANE DAILY PRN PRN Reason: Consult order Senna (Sennosides 8.6 Mg Tablet) 17.2 mg PO BEDTIME PRN PRN Reason: Constipation Sodium Chloride (0.9 % Sodium Chloride Flush 3 Ml Syringe) 3 ml IVFLUSH QSHIFT [facility] Last Admin: 01/21/21 15:29 Dose: 3 ml Documented by: MARITZA Spironolactone (Spironolactone 25 Mg Tablet) 25 mg PO BID@0900,1800 [facility]; Protocol Labs CBC & Chem 7: 01/21/21 06:20 01/21/21 06:20 Labs: Laboratory Results - last 24 hr 01/20/21 01/21/21 01/21/21 21:03 06:20 06:20 MCV 86.9 MCH 28.8 MCHC 33.2 RDW 15.3 Plt Count 216 MPV 8.5 L Immature Gran % (Auto) 2.3 H Neut % (Auto) 85.9 H Lymph % (Auto) 5.7 L [place] % (Auto) 5.8 Eos % (Auto) 0.1 Baso % (Auto) 0.2 Lymph # (Auto) 1.8 [place] # (Auto) 1.9 H Eos # (Auto) 0.0 Baso # (Auto) 0.1 Abs Immat Gran (auto) 0.75 H Absolute Neuts (auto) 27.8 H Absolute Nucleated RBC 0.000 Nucleated RBC % (auto) 0.0 Smear Tech's Comments VERIFIED Anion Gap 12 Estim Creat Clear Calc 136.0 Estimated GFR > 60 Fasting Glucose 98 Calcium 7.9 L D Total Bilirubin 1.8 H AST 32 ALT 18 Alkaline Phosphatase 62 Total Protein 5.9 L Albumin 3.0 L Vancomycin Trough 14.6 Microbiology Microbiology Results: Microbiology 01/20/21 12:30 Gram Stain - Final Ascites Fluid Anaerobic Culture - Preliminary Culture in progress. Body Fluid Culture - Preliminary Staphylococcus aureus 01/20/21 06:33 Blood Culture - Preliminary Blood - Venous No growth after 24 hours. 01/20/21 06:33 Blood Culture - Preliminary Blood - Venous No growth after 24 hours. Assessment and Plan (1) Cirrhosis: Status: Acute (2) SBP (spontaneous bacterial peritonitis): Status: Acute (3) Ascites: Status: Acute Assessment and Plan: 35yo M who uses injection heroin and was diagnosed with MRSA bacteremia in the ED 01/02/21 but could not be contacted to be called back admitted 01/15-01/17/21 with ascites growing MRSA [[id number] WBCs, 86% PMNs] and persistent positive BCx growing MRSA but signed out AMA 01/17/21 re-admitted 01/17/21 and given naloxone for suspected heroin overdose still bacteremic 1. MRSA bacteremia - continue vancomycin, ID following, no vegetation on TTE though limited study and BCx still positive from 01/17/21.? will need 6 wk IV vancomycin from 1st negative BCx.? Repeat blood cultures since yesterday at 24hour negative. 2.MRSA peritonitis - continue vancomycin 3. decompensated cirrhosis with ascites - repeat paracentesis today therapeutic + diagnostic - will give salt-poor albumin 50g today Still has ascites, continue albumin Continue furosemide + adjusted spironolactone 25 b.i.d. monitor electrolytes GI evaluation pending-recommended to do abdominal ultrasound to see patency of portal vein. Doppler-limited but shows patent main portal vein, intrahepatic IVC, cirrhosis and ascites. Will plan for paracentesis in the morning again patient refuses paracentesis for today-discussed with him in detail. 4. HCV reinfection [viral load 274k] - will need outpt treatment at hepatology center 5. septic pulmonary emboli - due to MRSA bacteremia; not hypoxic 6.leukocytosis - likely leukemoid reaction from infection, Heme consult done, bcr/abl pending 7.cellulitis of feet + hands - continue vancomycin 8. L glenohumeral/bursal fluid collection - not clinically consistent with septic arthritis per Orthopedics 9. hypoNa - mild, likely due to cirrhosis 10. LUQ hematoma - per Surgery, no intervention indicated 11. opioid use disorder - Addiction Medicine following, on methadone - got naloxone in ED for overdose 12 moderate protein-calorie malnutrition - Ensure 13. VTE ppx - UFH dispo - once BCx clear, needs PICC line and STR Quality Stroke Does the patient have a stroke diagnosis?: No VTE Prior VTE?: No VTE Risk Level:: Medical - moderate - high VTE Device Contraindication: Treatment Not Indicated VTE Drug Contraindication: N/A - Med Ordered
[2021-01-21] MEDS: Spironolactone 25 MG TABLET PO (17:29)
[2021-01-21] MEDS: Albumin Human 25 % 100 ML IV (20:20)
[2021-01-21 20:27] LABS: Vancomycin Trough 19.1 mcg/mL (10.0-20.0)
--- NOTE | 2021-01-21 20:27 | PM.GIPN ---
Subjective Subjective Date of Service: 01/21/21 Interval History: recurrent ascites causing discomfort, tender around ascitic tap area appetite is fair feels weak and lethargic denies rectal bleeding, or melena Critical Care Time (minutes): 20 Physical Exam Vital Signs: Vital Signs: Last Vital Signs Temp 99.0 F 01/21/21 18:55 Pulse 109 H 01/21/21 18:55 Resp 20 01/21/21 18:55 BP 151/85 H 01/21/21 18:55 Pulse Ox 93 01/21/21 18:55 Body Mass Index 19.2 EXAM: GENERAL: The patient is gaunt and wasted VITAL SIGNS:see workflow HEENT: Nonicteric sclerae, PERRLA, EOMI. Oropharynx clear. Moist mucous membranes. Conjunctivae appear well perfused. No thyroid mass. CHEST: Chest wall is nontender. HEART: Regular rate and rhythm without murmurs. raised JVD LUNGS: Clear to auscultation bilaterally. ABDOMEN: Soft, positive bowel sounds, tender, no organomegaly.no flank tenderness, distended SKIN: No rash, no excessive bruising, petechiae, or purpura. NEUROLOGIC: Cranial nerves II-XII intact without motor/sensory deficit. psych--nml Objective Data Labs CBC & Chem 7: 01/21/21 06:20 01/21/21 06:20 Labs: Laboratory Results - last 24 hr 01/20/21 01/21/21 01/21/21 21:03 06:20 06:20 WBC 32.3 H* RBC 4.82 Hgb 13.9 L Hct 41.9 L MCV 86.9 MCH 28.8 MCHC 33.2 RDW 15.3 Plt Count 216 MPV 8.5 L Immature Gran % (Auto) 2.3 H Neut % (Auto) 85.9 H Lymph % (Auto) 5.7 L [place] % (Auto) 5.8 Eos % (Auto) 0.1 Baso % (Auto) 0.2 Lymph # (Auto) 1.8 [place] # (Auto) 1.9 H Eos # (Auto) 0.0 Baso # (Auto) 0.1 Abs Immat Gran (auto) 0.75 H Absolute Neuts (auto) 27.8 H Absolute Nucleated RBC 0.000 Nucleated RBC % (auto) 0.0 Smear Tech's Comments VERIFIED Sodium 132 L Potassium 4.5 Chloride 100 Carbon Dioxide 25 Anion Gap 12 BUN 17 H Creatinine 0.62 Estim Creat Clear Calc 136.0 Estimated GFR > 60 Fasting Glucose 98 Calcium 7.9 L D Total Bilirubin 1.8 H AST 32 ALT 18 Alkaline Phosphatase 62 Total Protein 5.9 L Albumin 3.0 L Vancomycin Trough 14.6 Microbiology Microbiology Results: Microbiology 01/20/21 12:30 Ascites Fluid Gram Stain - Final 01/20/21 12:30 Ascites Fluid Anaerobic Culture - Preliminary Culture in progress. 01/20/21 12:30 Ascites Fluid Body Fluid Culture - Preliminary Staphylococcus aureus 01/20/21 06:33 Blood - Venous Blood Culture - Preliminary No growth after 24 hours. 01/20/21 06:33 Blood - Venous Blood Culture - Preliminary No growth after 24 hours. Procedures Date of Service Date of Service: 01/21/21 Progress Note: A&P Assessment and plan (1) Cirrhosis: Status: Acute (2) SBP (spontaneous bacterial peritonitis): Status: Acute (3) MRSA bacteremia: Status: Acute Assessment and Plan: 1/ MRSA bacteremia with MRSA bacterial peritonitis and recurrent ascites PLAN: 1/ Titrate up diuretics as kidney fn and Na allows, personally discussed dosing w Dr To and need to r/o PVT or brayden valentin 2/ can use 25% albumin 25 g bid for 3 d to see if helps reduce ascites 3/ cont with treatment of bacteremia which should help liver fucntion 4/ repeat doppler a time of paracentesis as non occlusive clot seen in PV wth collaterals, but views not so good, 5/ consider repeating ECHO to see if any triscuspid regurg which may also b contributing to ascites 6/ overall prognosis is guarded Fall Risk Details Current Medications: Current Medications Acetaminophen (Acetaminophen 325 Mg Tablet) 650 mg PO Q6H PRN PRN Reason: Pain, Mild (Pain Scale 1-3) Furosemide (Furosemide 20 Mg Tablet) 20 mg PO BID@0900,1800 [facility]; Protocol Last Admin: 01/21/21 17:29 Dose: 20 mg Documented by: Heparin Sodium (Porcine) (Heparin Sodium,Porcine 5,000 Unit/Ml Vial) 5,000 unit SUBCUT Q8H [facility] Last Admin: 01/21/21 15:29 Dose: 5,000 unit Documented by: Hydromorphone HCl (Hydromorphone Hcl 0.5 Mg/0.5 Ml Syringe) 0.5 mg IVPUSH Q4H PRN; Protocol PRN Reason: Breakthrough Pain Last Admin: 01/21/21 17:33 Dose: 0.5 mg Documented by: Vancomycin HCl 1,000 mg/ (Sodium Chloride) 270 mls @ 270 mls/hr IV Q8H [facility] Last Infusion: 01/21/21 15:29 Dose: Infused Documented by: Albumin Human (Kedbumin 25 %) 100 mls @ 100 mls/hr IV BID [facility] Stop: 01/22/21 09:59 Last Admin: 01/21/21 20:20 Dose: 100 mls/hr Documented by: Melatonin (Melatonin 3 Mg Tablet) 6 mg PO BEDTIME PRN PRN Reason: Insomnia Methadone HCl (Methadone Hcl 20 Mg/2 Ml Oral.Conc) 50 mg PO DAILY [facility] Oxycodone HCl (Oxycodone Hcl Immed Release 5 Mg Tablet) 5 mg PO Q6H PRN PRN Reason: Pain, Severe (Pain Scale 7-10) Last Admin: 01/21/21 20:20 Dose: 5 mg Documented by: Pharmacy Consult (Consult Rx Vancomycin Dosing) 1 each MISCELLANE DAILY PRN PRN Reason: Consult order Pharmacy Consult (Consult Rx Vancomycin Dosing) 1 each MISCELLANE DAILY PRN PRN Reason: Consult order Senna (Sennosides 8.6 Mg Tablet) 17.2 mg PO BEDTIME PRN PRN Reason: Constipation Sodium Chloride (0.9 % Sodium Chloride Flush 3 Ml Syringe) 3 ml IVFLUSH [facility] Last Admin: 01/21/21 15:29 Dose: 3 ml Documented by: Spironolactone (Spironolactone 25 Mg Tablet) 25 mg PO BID@0900,1800 [facility]; Protocol Last Admin: 01/21/21 17:29 Dose: 25 mg Documented by: Time Spent With Patient Time: Total time spent is greater than 50% in coordination of care (as documented) at patient's floor/unit and/or counseling patient: Time with patient: 15 - 24 minutes Quality Stroke Does the patient have a stroke diagnosis?: No VTE Prior VTE?: No VTE Risk Level:: Medical - moderate - high VTE Device Contraindication: Treatment Not Indicated VTE Drug Contraindication: N/A - Med Ordered
[2021-01-22] VITALS (7 sets, daily range): BP systolic 135–169; BP diastolic 78–89; PULSE 97–115; RESP 18–20; TEMP 36.6–37.1; O2SAT 93–95
[2021-01-22] MEDS: 0.9 % Sodium Chloride Flush 3 ML SYRINGE IVFLUSH ×4 (00:25→19:45)
[2021-01-22] MEDS: HYDROmorphone HCl 0.5 MG/0.5 ML SYRINGE IVPUSH ×5 (00:30→19:45)
[2021-01-22] MEDS: oxyCODONE HCl Immed Release 5 MG TABLET PO ×3 (03:31→22:33)
--- NOTE | 2021-01-22 03:56 | PC.NURSE ---
CARE ASSUMED 23:15...AWAKE...ALERT..ORIENTED X3..CALM/CO-OPERATIVE...REMAINS WITH ABDOMINAL DISTENSION..STATED I'M GOING TO NEED ANOTHER PARACENTESIS TODAY ...C/O PERSISTANT ABDOMINAL PAIN...MEDICATED PERMAR WITH PRN OXYCODONE AND DILAUDID...STATED THE PAIN NEVER GOES AWAY BUT AT LEAST I CAN NAP ..VSS/SAO2 STABLE
[2021-01-22] MEDS: vancomycin HCL 750 MG in 0.9 % Sodium Chloride 250 ML 265 MG IV ×3 (04:43→22:34)
[2021-01-22 06:53] LABS: Hematocrit 37.8 % (42.0-52.0); Hemoglobin 12.3 g/dl (14.0-18.0); Mean Corpuscular HGB Conc 32.5 g/dl (31.0-36.0); Mean Corpuscular Hemoglobin 28.7 pg (27.0-33.0); Mean Corpuscular Volume 88.3 fL (80.0-98.0); Mean Platelet Volume 8.6 fL (9.4-12.4); Platelet Count 185 X10*3/uL (160-400); Red Blood Count 4.28 X10*6/uL (4.60-5.80); Red Cell Distribution Width 15.9 % (11.0-16.0); White Blood Count 25.3 X10*3/uL (4.8-10.8)
[2021-01-22 07:04] LABS: Anion Gap 14 (12-20); Blood Urea Nitrogen 18 mg/dL (9-16); Calcium 8.2 mg/dL (8.4-10.2); Carbon Dioxide 24 mmol/L (22-29); Chloride 100 mmol/L (96-108); Creatinine Clr Calc Pharmacy 142.9; Estimated Glomerular Filt Rate > 60; Glucose Random 91 mg/dL (60-115); Potassium 4.5 mmol/L (3.3-5.1); Sodium 133 mmol/L (135-145)
[2021-01-22] MEDS: methADONE HCl 20 MG/2 ML ORAL.CONC 50 MG PO (08:58)
[2021-01-22] MEDS: Phytonadione (Vit K1) Oral 10 MG/ML AMPUL PO (09:01)
[2021-01-22] MEDS: Albumin Human 25 % 100 ML IV ×3 (09:11→18:29)
--- NOTE | 2021-01-22 10:34 | P.CDIC_ITS ---
CDI Concurrent Query Documentation Clarification: PHYSICIAN'S DOCUMENTATION REQUEST Date of Query: 01/22/21 1035 Patient Name: Gopal Rosa Admit Date: 01/17/21 Dear Doctor, A review of the medical record indicates additional documentation may be needed. Please review below and update the documentation accordingly Risk Factors/Clinical Indicators/Treatments WBC 51.6 (poa) LA 2.7 HR 116 RR 25 IV Vancomycin, Zosyn, IV fluids. Septic pulmonary embolism, MRSA bacteremia, cellulitis of feet and hands. SBP. PN: 01/21 - leukocytosis - likely leukemoid reaction from infection. Injects IV heroin. Please clarify which of the following most accurately describes the above abnormalities: * Sepsis due to: * Systemic manifestations of infection -Leukocytosis - WBC > 12,000 or leukopenia, WBC < 4,000 or > 10% bands -Tachycardia > 90 beats/minute -Tachypnea - RR > 20 breaths/minute or PaCO2 < 32mmHg * Indicate the knows or suspected organism * Indicate the known or suspected underlying infection, such as, cellulitis, SBP, Pulmonary embolism etc. * Indicate if a suspected bacteria infection of unknown source * Other * Unable to determine Use of terms such as suspected, likely, concern for, or probable (associated with a specific diagnosis that is being evaluated, monitored, or treated as if it exists) are acceptable and can be coded in the inpatient setting, when documented at the time of discharge. Thank you, Zhanna Tripathi [facility], [facility]IS Extension: [phone] Please use your independent medical judgment in providing your response. THIS QUERY IS PART OF THE PERMANENT MEDICAL RECORD Provider Response: Other Other Diagnosis: sepsis unclear duration
--- NOTE | 2021-01-22 12:14 | MHC.CLN ---
Addendum entered by Alice Syed, TIFFANIE 01/22/21 13:57: AGREE WITH PROVIDER'S ASSESSMENT BELOW Original Note: F/U DIET RX: REGULAR WITH 1500 ML FLUID RESTRICTION-APPROPRIATE PT STATES HE HAS DIFFICULTY EATING R/T ABDOMINAL DISCOMFORT PO INTAKE VARIABLE DOCUMENTED 25%, 75%, 100% PT RECEIVING ENSURE SUPPLEMENT TID TO PROVIDE 1050 KCALS, 32 GRAMS PROTEIN AND 606 ML WATER (R/T FLUID RESTRICTION) MONITOR PO INTAKE CLOSELY
--- NOTE | 2021-01-22 12:24 | MHC.CM.PN ---
Per ROUNDS discussion, Patient is not yet medically cleared for dc (Paracentesis today). LT IVABT AT [facility] remains the goal for dc and CM will follow for possible need to adjust the dc plan.
[2021-01-22] MEDS: Lidocaine HCl 1 % MPF 5 ML VIAL SUBCUT ×2 (12:26→15:39)
--- NOTE | 2021-01-22 16:19 | HO.PM.IMPN ---
Subjective Subjective Date of Service: 01/22/21 Interval History: mrsa bactermia Review of Systems Has ascites and some abdominal discomfort Denies any chest pain or shortness of breath or fever chills or cough or phlegm. Eating is better slightly today. Physical Exam Vital Signs: Vital Signs: Last Vital Signs Temp 98.7 F 01/22/21 15:48 Pulse 115 H 01/22/21 15:48 Resp 18 01/22/21 15:48 BP 169/89 H 01/22/21 15:48 Pulse Ox 93 01/22/21 15:48 Body Mass Index 19.2 Gen: disheveled, ill apearing, chronically? sick . HEENT: sclera anicteric, moist mucus membranes Neck: supple Lungs: clear to auscultation bilaterally Heart: regular rate and rhythm, no murmurs Abd: still has moderate ascitis, mild discomfort , less tense , bm present. Ext: no edema Skin: erythema on ankles and feet Neuro: AOx3, no asterixis elicited Psych: appropriate affect ? Objective Data Active Medications Acetaminophen (Acetaminophen 325 Mg Tablet) 650 mg PO Q6H PRN PRN Reason: Pain, Mild (Pain Scale 1-3) Furosemide (Furosemide 20 Mg Tablet) 20 mg PO BID@0900,1800 [facility]; Protocol Last Admin: 01/22/21 09:07 Dose: Not Given Documented by: REKHA Non-Admin Reason: Physician Held Med Heparin Sodium (Porcine) (Heparin Sodium,Porcine 5,000 Unit/Ml Vial) 5,000 unit SUBCUT Q8H [facility] Last Admin: 01/22/21 16:17 Dose: Not Given Documented by: REKHA Non-Admin Reason: paracentesis done Hydromorphone HCl (Hydromorphone Hcl 0.5 Mg/0.5 Ml Syringe) 0.5 mg IVPUSH Q4H PRN; Protocol PRN Reason: Breakthrough Pain Last Admin: 01/22/21 15:51 Dose: 0.5 mg Documented by: REKHA Vancomycin HCl 750 mg/ Sodium (Chloride) 265 mls @ 265 mls/hr IV Q8H [facility] Last Admin: 01/22/21 16:14 Dose: 265 mls/hr Documented by: REKHA Melatonin (Melatonin 3 Mg Tablet) 6 mg PO BEDTIME PRN PRN Reason: Insomnia Methadone HCl (Methadone Hcl 20 Mg/2 Ml Oral.Conc) 50 mg PO DAILY [facility] Last Admin: 01/22/21 08:58 Dose: 50 mg Documented by: REKHA Oxycodone HCl (Oxycodone Hcl Immed Release 5 Mg Tablet) 5 mg PO Q6H PRN PRN Reason: Pain, Severe (Pain Scale 7-10) Last Admin: 01/22/21 15:54 Dose: 5 mg Documented by: REKHA Pharmacy Consult (Consult Rx Vancomycin Dosing) 1 each MISCELLANE DAILY PRN PRN Reason: Consult order Pharmacy Consult (Consult Rx Vancomycin Dosing) 1 each MISCELLANE DAILY PRN PRN Reason: Consult order Senna (Sennosides 8.6 Mg Tablet) 17.2 mg PO BEDTIME PRN PRN Reason: Constipation Sodium Chloride (0.9 % Sodium Chloride Flush 3 Ml Syringe) 3 ml IVFLUSH QSHIFT [facility] Last Admin: 01/22/21 15:50 Dose: 3 ml Documented by: REKHA Spironolactone (Spironolactone 25 Mg Tablet) 25 mg PO BID@0900,1800 [facility]; Protocol Last Admin: 01/22/21 09:07 Dose: Not Given Documented by: REKHA Non-Admin Reason: Physician Held Med Labs CBC & Chem 7: 01/22/21 06:17 01/22/21 06:17 Labs: Laboratory Results - last 24 hr 01/21/21 01/22/21 01/22/21 20:00 06:17 06:17 MCV 88.3 MCH 28.7 MCHC 32.5 RDW 15.9 Plt Count 185 MPV 8.6 L Absolute Nucleated RBC 0.000 Nucleated RBC % (auto) 0.0 Anion Gap 14 Estim Creat Clear Calc 142.9 Estimated GFR > 60 Random Glucose 91 Calcium 8.2 L Vancomycin Trough 19.1 Microbiology Microbiology Results: Microbiology 01/20/21 12:30 Gram Stain - Final Ascites Fluid Anaerobic Culture - Preliminary Culture in progress. Body Fluid Culture - Final Methicillin Res Staph Aureus 01/20/21 06:33 Blood Culture - Preliminary Blood - Venous No growth after 48 hours. 01/20/21 06:33 Blood Culture - Preliminary Blood - Venous No growth after 48 hours. Assessment and Plan (1) MRSA bacteremia: Status: Acute (2) Cellulitis: Status: Acute Assessment and Plan: 35yo M who uses injection heroin and was diagnosed with MRSA bacteremia in the ED 01/02/21 but could not be contacted to be called back admitted 01/15-01/17/21 with ascites growing MRSA [[id number] WBCs, 86% PMNs] and persistent positive BCx growing MRSA but signed out AMA 01/17/21 re-admitted 01/17/21 and given naloxone for suspected heroin overdose still bacteremic 1. MRSA bacteremia - continue vancomycin, vanco trough-19.1,ID following, no vegetation on TTE though limited study and BCx still positive from 01/17/21.? will need 6 wk IV vancomycin from 1st negative BCx.? Repeat blood cultures since yesterday at 48 hour negative. 2.MRSA peritonitis - continue vancomycin 3. decompensated cirrhosis with ascites - repeat paracentesis today therapeutic - will give salt-poor albumin added Still has ascites, continue albumin Continue furosemide + adjusted spironolactone 25 b.i.d. monitor electrolytes GI evaluation pending-recommended to do abdominal ultrasound to see patency of portal vein. Doppler-limited but shows patent main portal vein, intrahepatic IVC, cirrhosis and ascites. s/p paracentesis -seems slightly paracentesis. 4. HCV reinfection [viral load 274k] - will need outpt treatment at hepatology center 5. septic pulmonary emboli- due to MRSA bacteremia; not hypoxic 6.leukocytosis- likely leukemoid reaction from infection, Heme consult done, bcr/abl pending 7.cellulitis of feet + hands- continue vancomycin 8. L glenohumeral/bursal fluid collection- not clinically consistent with septic arthritis per Orthopedics 9. hypoNa- mild, likely due to cirrhosis 10. LUQ hematoma- per Surgery, no intervention indicated 11. opioid use disorder - Addiction Medicine following, on methadone - got naloxone in ED for overdose 12 moderate protein-calorie malnutrition - Ensure 13. VTE ppx - UFH ?dispo- once BCx clear, needs PICC line and STR Quality Stroke Does the patient have a stroke diagnosis?: No VTE Prior VTE?: No VTE Risk Level:: Medical - moderate - high VTE Device Contraindication: Treatment Not Indicated VTE Drug Contraindication: N/A - Med Ordered
[2021-01-22] MEDS: Sennosides 8.6 MG TABLET 17.2 MG PO (19:45)
[2021-01-22] MEDS: Heparin Sodium,Porcine 5,000 UNIT/ML VIAL 5000 UNIT SUBCUT (22:33)
[2021-01-23] VITALS (8 sets, daily range): BP systolic 140–170; BP diastolic 78–100; PULSE 97–108; RESP 14–18; TEMP 36.7–37.3; O2SAT 94–95
[2021-01-23] MEDS: HYDROmorphone HCl 0.5 MG/0.5 ML SYRINGE IVPUSH ×3 (00:05→08:06)
[2021-01-23 04:13] LABS: Hematocrit 36.9 % (42.0-52.0); Hemoglobin 11.7 g/dl (14.0-18.0); Mean Corpuscular HGB Conc 31.7 g/dl (31.0-36.0); Mean Corpuscular Hemoglobin 28.7 pg (27.0-33.0); Mean Corpuscular Volume 90.4 fL (80.0-98.0); Mean Platelet Volume 8.4 fL (9.4-12.4); Platelet Count 141 X10*3/uL (160-400); Red Blood Count 4.08 X10*6/uL (4.60-5.80); Red Cell Distribution Width 16.4 % (11.0-16.0); White Blood Count 18.8 X10*3/uL (4.8-10.8)
[2021-01-23 04:55] LABS: Anion Gap 15 (12-20); Blood Urea Nitrogen 16 mg/dL (9-16); Calcium 8.3 mg/dL (8.4-10.2); Carbon Dioxide 23 mmol/L (22-29); Chloride 99 mmol/L (96-108); Creatinine Clr Calc Pharmacy 147.9; Estimated Glomerular Filt Rate > 60; Glucose Random 76 mg/dL (60-115); Potassium 4.8 mmol/L (3.3-5.1); Sodium 132 mmol/L (135-145)
[2021-01-23 05:00] LABS: Vancomycin Trough 11.6 mcg/mL (10.0-20.0)
[2021-01-23] MEDS: oxyCODONE HCl Immed Release 5 MG TABLET PO (06:18)
[2021-01-23] MEDS: vancomycin HCL 750 MG in 0.9 % Sodium Chloride 250 ML 265 MG IV (06:20)
[2021-01-23] MEDS: Heparin Sodium,Porcine 5,000 UNIT/ML VIAL 5000 UNIT SUBCUT (06:20)
--- NOTE | 2021-01-23 07:33 | HE.PHANOTE ---
Vancomycin Dosing Addendum Patients trough 11.6 today. pt on 750 mg q8h with predicted AUC <400. Increased dose back to 1000 mg q8h for a predicted AUC of 503.
[2021-01-23] MEDS: methADONE HCl 20 MG/2 ML ORAL.CONC 50 MG PO (08:06)
[2021-01-23] MEDS: 0.9 % Sodium Chloride Flush 3 ML SYRINGE IVFLUSH ×2 (08:07→21:21)
--- NOTE | 2021-01-23 10:26 | PM.EVENT ---
Event Note Date of Service: 01/23/21 Event Note: Methadone dose titrated up to 55mg daily, start today
--- NOTE | 2021-01-23 11:10 | MHC.RECOVRN ---
Met with pt to f/u regarding methadone dose increase. Pt reports desire to increase to 55 mg due to continued withdrawal symptoms including body aches. Discussed with Larissa Tineo NP, who will order increased daily dose.
--- NOTE | 2021-01-23 11:24 | PC.NURSE ---
Addendum entered by Christina Omer RN 01/23/21 11:26: Also has scattered bruising on arms and legs. Original Note: Skin assessment completed. Patient has cellulitis to bilateral feet and hands with no open areas. Will continue to monitor.
[2021-01-23] MEDS: methADONE HCl 20 MG/2 ML ORAL.CONC 5 MG PO (12:10)
--- NOTE | 2021-01-23 13:14 | PM.CNGS ---
History of Present Illness Consult details Consult date: 01/23/21 <Eulalia Crump PA-C Last Filed: 01/23/21 14:02> Reason for consult: other (bowel obstruction versus ileus) <JEYSON Castillo Last Filed: 01/23/21 14:02> Requesting physician: Loco To <Eulalia Crump PA-C Last Filed: 01/23/21 14:02> Narrative: 35-year-old male with multiple active medical problems who presented to the ED originally on 01/15/21 with a chief complaint of bilateral foot and hand pain. He is an active IVDA and was admitted to the hospital for cellulitis.? He was also found to have MRSA bacteremia with subsequent septic pulmonary emboli, decompensated liver cirrhosis, ascites and SBP and left upper quadrant hematoma. The patient left AMA on 01/17/2021 and presented back later that day to the hospital to continue treatment. This morning the patient had worsening abdominal pain. A CT scan abd/pelvis and KUB were performed which demonstrated distended loops of small bowel and right/proximal transverse colon. Surgery was therefore consulted for evaluation. He states the pain has been present since admission but has gradually worsened. He feels very bloated. He has had a poor appetite and reports his skin is numb due to the size of his abdomen. He is passing flatus but no BM for close to a week. He normally goes every day. He denies overt nausea or vomiting. He denies any prior abdominal surgeries. <JEYSON Castillo Last Filed: 01/23/21 14:02> Review of Systems Constitutional: Constitutional: Reports anorexia and Denies fever(s) <JEYSON Castillo Last Filed: 01/23/21 14:02> ENT: Reports dizziness (with ambulating) <JEYSON Castillo Last Filed: 01/23/21 14:02> Cardiovascular: Cardiovascular: Denies dyspnea <JEYSON Castillo Last Filed: 01/23/21 14:02> Respiratory: Respiratory: Denies dyspnea <JEYSON Castillo Last Filed: 01/23/21 14:02> Gastrointestinal: Gastrointestinal: Reports as per HPI, Reports abdominal pain, Reports bloating, Reports constipation, Denies diarrhea, Denies nausea and Denies vomiting <JEYSON Castillo Last Filed: 01/23/21 14:02> Genitourinary: Genitourinary: Denies hematuria and Denies difficulty urinating <Eulalia Crump PA-C - Last Filed: 01/23/21 14:02> Integumentary/Breasts: Skin/Breast: Denies rash <Eulalia Crump PA-C - Last Filed: 01/23/21 14:02> Neurologic: Reports dizziness (with ambulating) <JEYSON Castillo Last Filed: 01/23/21 14:02> [facility] Past Medical History Medical History: Medical History Hematoma and contusion IV drug user <JEYSON Castillo Last Filed: 01/23/21 14:02> Functional capacity: independent ambulation <JEYSON Castillo Last Filed: 01/23/21 14:02> Social History Social History: Social History Household Members: Other Housing: Homeless Do you presently have visiting nurse or other home services: No Alcohol intake: current Alcohol intake frequency: 3 or more drinks per day Alcohol type: beer Patient Tobacco Use Status: Never used Tobacco Tobacco use type: Cigarette e-Cigarette/Vaping Use: Never Used Substance Use Type: Crack/Cocaine service: No <JEYSON Castillo Last Filed: 01/23/21 14:02> Meds Allergies/Adverse reactions: Allergies Allergy/AdvReac Type Severity Reaction Status Date / Time No Known Allergies Allergy Verified 01/02/21 06:31 [No Known Allergies*] <JEYSON Castillo Last Filed: 01/23/21 14:02> Active Medications: Current Medications Acetaminophen (Acetaminophen 325 Mg Tablet) 650 mg PO Q6H PRN PRN Reason: Pain, Mild (Pain Scale 1-3) Furosemide (Furosemide 20 Mg Tablet) 20 mg PO BID@0900,1800 [facility]; Protocol Last Admin: 01/22/21 18:18 Dose: Not Given Documented by: Heparin Sodium (Porcine) (Heparin Sodium,Porcine 5,000 Unit/Ml Vial) 5,[address] [facility] Last Admin: 01/23/21 06:20 Dose: 5,000 unit Documented by: Vancomycin HCl 1,000 mg/ (Sodium Chloride) 270 mls @ 270 mls/hr IV Q8H [facility] Melatonin (Melatonin 3 Mg Tablet) 6 mg PO BEDTIME PRN PRN Reason: Insomnia Methadone HCl (Methadone Hcl 20 Mg/2 Ml Oral.Conc) [address] [facility] Pharmacy Consult (Consult Rx Vancomycin Dosing) 1 each MISCELLANE DAILY PRN PRN Reason: Consult order Pharmacy Consult (Consult Rx Vancomycin Dosing) 1 each MISCELLANE DAILY PRN PRN Reason: Consult order Polyethylene Glycol (Polyethylene Glycol 3350 17 Gm Powd.Pack) [address] [facility] Senna (Sennosides 8.6 Mg Tablet) 17.2 mg PO BEDTIME PRN PRN Reason: Constipation Last Admin: 01/22/21 19:45 Dose: 17.2 mg Documented by: Sodium Chloride (0.9 % Sodium Chloride Flush 3 Ml Syringe) [facility] Last Admin: 01/23/21 08:07 Dose: 3 ml Documented by: Spironolactone (Spironolactone 25 Mg Tablet) 25 mg PO BID@0900,1800 [facility]; Protocol Last Admin: 01/22/21 18:18 Dose: Not Given Documented by: <Eulalia Crump PA-C - Last Filed: 01/23/21 14:02> Home medications: Home Medications Medication Instructions Recorded Confirmed Last Taken Type No Known Home Meds 01/15/21 01/15/21 Unknown History <Eulalia Crump PA-C - Last Filed: 01/23/21 14:02> Physical Exam Vital Signs: Vital Signs: Last Vital Signs Temp 99.1 F 01/23/21 11:00 Pulse 97 01/23/21 11:00 Resp 18 01/23/21 11:00 BP 142/87 H 01/23/21 11:00 Pulse Ox 94 01/23/21 11:00 Body Mass Index 19.2 <JEYSON Castillo Last Filed: 01/23/21 14:02> Const: General: no acute distress and awake <Eulalia Mcnallyau, PA- [place] Last Filed: 01/23/21 14:02> Nutritional Appearance: cachectic and malnourished <Eulalia Crump PA-C [place] Last Filed: 01/23/21 14:02> Orientation/consciousness: patient oriented x3 <ARIELLA Castillo [place] Last Filed: 01/23/21 14:02> Resp: Effort & Inspection: normal respiratory effort <ARIELLA Castillo [place] Last Filed: 01/23/21 14:02> GI: Inspection: Yes distended (significantly) and Yes other [facility] Last Filed: 01/23/21 14:02> Palpation (GI): Soft to palpation, Tenderness to palpation present (GI) (mild, diffuse), no guarding and not rigid <[facility] Last Filed: 01/23/21 14:02> Percussion: Yes tympanic to percussion <[facility] Last Filed: 01/23/21 14:02> Auscultation: Hypoactive bowel sounds present <ARIELLA Castillo [place] Last Filed: 01/23/21 14:02> Skin: Other: warm and dry <ARIELLA Castillo [place] Last Filed: 01/23/21 14:02> Neuro: General: patient oriented x3 <ARIELLA Castillo [place] Last Filed: 01/23/21 14:02> Extrem: General: Yes no clubbing, cyanosis or edema <[facility] Last Filed: 01/23/21 14:02> Results Labs Result diagrams: : 01/23/21 04:00 01/23/21 04:00 <ARIELLA Castillo [place] Last Filed: 01/23/21 14:02> Labs: Abnormal lab results 01/23/21 01/23/21 Range/Units 04:00 04:00 WBC 18.8 H (4.8-10.8) X10*3/uL RBC 4.08 L (4.60-5.80) X10*6/uL Hgb 11.7 L (14.0-18.0) g/dl Hct 36.9 L (42.0-52.0) % RDW 16.4 H (11.0-16.0) % Plt Count 141 L (160-400) X10*3/uL MPV 8.4 L (9.4-12.4) fL Sodium 132 L (135-145) mmol/L Calcium 8.3 L (8.4-10.2) mg/dL Short CBC 01/23/21 Range/Units 04:00 WBC 18.8 H (4.8-10.8) X10*3/uL Hgb 11.7 L (14.0-18.0) g/dl Hct 36.9 L (42.0-52.0) % Plt Count 141 L (160-400) X10*3/uL BMP 01/23/21 01/23/21 04:00 04:00 Sodium 132 L Potassium 4.8 Chloride 99 Carbon Dioxide 23 BUN 16 Creatinine Cancelled 0.57 Calcium 8.3 L All other labs normal. <Eulalia Crump PA-C - Last Filed: 01/23/21 14:02> Assessment and Plan (1) Cirrhosis: Status: Acute <JEYSON Castillo Last Filed: 01/23/21 14:02> (2) SBP (spontaneous bacterial peritonitis): Status: Acute <Eulalia Crump PA-C - Last Filed: 01/23/21 14:02> (3) Ascites: Status: Acute <Eulalia Crump PA-C - Last Filed: 01/23/21 14:02> (4) MRSA bacteremia: Status: Acute <JEYSON Castillo Last Filed: 01/23/21 14:02> (5) Paralytic ileus: Status: Acute <Eulalia Crump PA-C - Last Filed: 01/23/21 14:02> Patient known to hi Has cirrhosis and chronic liver disease Large amount of ascites Recent SBP CT scans dilated transverse colon tapering on the descending colon No obvious transition point Likely segmental ileus Has been on narcotics as well Definitive workup would include colonoscopy Patient has multiple medical problems at this time Continue to follow Seen and examined dependently - agree with AICHA Crump <Almas Ventura MD - Last Filed: 01/23/21 16:58> 35-year-old male active IVDA admitted to the hospital for cellulitis found to have MRSA bacteremia with subsequent septic pulmonary emboli, decompensated liver cirrhosis, ascites and SBP requiring paracentesis and left upper quadrant hematoma. He developed worsening abd pain and distention. CT scan abd/pelvis and KUB were performed which demonstrated distended loops of small bowel and right/proximal transverse colon. He likely has an ileus which is probably multifactorial in etiology including narcotics and ascites/peritonitis. He is passing some flatus and has air in his distal colon. His stomach is not distended on imaging and he denies nausea/vomiting so can hold off on NGT insertion unless he develops these symptoms. Encouraged OOB to at least chair to encourage bowel function, decrease use of narcotics. Can consider adding Reglan. Case discussed with Dr. Ventura. Will continue to follow. <Eulalia Crump PA-C - Last Filed: 01/23/21 14:02> Procedures Date of Service Date of Service: 01/23/21 <Eulalia Crump PA-C - Last Filed: 01/23/21 14:02>
--- NOTE | 2021-01-23 13:37 | P.PNIM_ITS ---
Subjective Subjective Date of Service: 01/23/21 Interval History: ascitis , abd discomfort, passing gases , no bm's from few days as per patient Review of Systems No nausea or vomiting or fever chills No cough or phlegm Physical Exam Vital Signs: Vital Signs: Last Vital Signs Temp 99.1 F 01/23/21 11:00 Pulse 97 01/23/21 11:00 Resp 18 01/23/21 11:00 BP 142/87 H 01/23/21 11:00 Pulse Ox 94 01/23/21 11:00 Body Mass Index 19.2 Gen: ill apearing, chronically? sick . HEENT: sclera anicteric, moist mucus membranes Neck: supple Lungs: clear to auscultation bilaterally Heart: regular rate and rhythm, no murmurs Abd: mild distended , globular , no rebound or guarding , bm present. Ext: no edema Skin: erythema on ankles and feet Neuro: AOx3, no asterixis elicited Psych: appropriate affect Objective Data Active Medications Acetaminophen (Acetaminophen 325 Mg Tablet) 650 mg PO Q6H PRN PRN Reason: Pain, Mild (Pain Scale 1-3) Furosemide (Furosemide 20 Mg Tablet) 20 mg PO BID@0900,1800 [facility]; Protocol Last Admin: 01/22/21 18:18 Dose: Not Given Documented by: REKHA Non-Admin Reason: Physician Held Med Heparin Sodium (Porcine) (Heparin Sodium,Porcine 5,000 Unit/Ml Vial) 5,000 unit SUBCUT Q8H [facility] Last Admin: 01/23/21 06:20 Dose: 5,000 unit Documented by: MARCI Vancomycin HCl 1,000 mg/ (Sodium Chloride) 270 mls @ 270 mls/hr IV Q8H [facility] Melatonin (Melatonin 3 Mg Tablet) 6 mg PO BEDTIME PRN PRN Reason: Insomnia Methadone HCl (Methadone Hcl 20 Mg/2 Ml Oral.Conc) 55 mg PO DAILY [facility] Pharmacy Consult (Consult Rx Vancomycin Dosing) 1 each MISCELLANE DAILY PRN PRN Reason: Consult order Pharmacy Consult (Consult Rx Vancomycin Dosing) 1 each MISCELLANE DAILY PRN PRN Reason: Consult order Polyethylene Glycol (Polyethylene Glycol 3350 17 Gm Powd.Pack) 17 gm PO DAILY [facility] Senna (Sennosides 8.6 Mg Tablet) 17.2 mg PO BEDTIME PRN PRN Reason: Constipation Last Admin: 01/22/21 19:45 Dose: 17.2 mg Documented by: MARCI Sodium Chloride (0.9 % Sodium Chloride Flush 3 Ml Syringe) 3 ml IVFLUSH QSHIFT [facility] Last Admin: 01/23/21 08:07 Dose: 3 ml Documented by: IRAM Spironolactone (Spironolactone 25 Mg Tablet) 25 mg PO BID@0900,1800 [facility]; Protocol Last Admin: 01/22/21 18:18 Dose: Not Given Documented by: REKHA Non-Admin Reason: Physician Held Med Labs CBC & Chem 7: 01/23/21 04:00 01/23/21 04:00 Labs: Laboratory Results - last 24 hr 01/23/21 01/23/21 01/23/21 04:00 04:00 04:00 MCV 90.4 MCH 28.7 MCHC 31.7 RDW 16.4 H Plt Count 141 L MPV 8.4 L Absolute Nucleated RBC 0.000 Nucleated RBC % (auto) 0.0 Anion Gap Estim Creat Clear Calc Cancelled Estimated GFR Cancelled Random Glucose Calcium Vancomycin Trough 11.6 01/23/21 04:00 MCV MCH MCHC RDW Plt Count MPV Absolute Nucleated RBC Nucleated RBC % (auto) Anion Gap 15 Estim Creat Clear Calc 147.9 Estimated GFR > 60 Random Glucose 76 Calcium 8.3 L Vancomycin Trough Microbiology Microbiology Results: Microbiology 01/20/21 12:30 Gram Stain - Final Ascites Fluid Anaerobic Culture - Preliminary Culture in progress. Body Fluid Culture - Final Methicillin Res Staph Aureus 01/20/21 06:33 Blood Culture - Preliminary Blood - Venous No growth after 48 hours. 01/20/21 06:33 Blood Culture - Preliminary Blood - Venous No growth after 48 hours. Assessment and Plan (1) Paralytic ileus: Status: Acute (2) MRSA bacteremia: Status: Acute Assessment and Plan: 35yo M who uses injection heroin and was diagnosed with MRSA bacteremia in the ED 01/02/21 but could not be contacted to be called back admitted 01/15-01/17/21 with ascites growing MRSA [[id number] WBCs, 86% PMNs] and persistent positive BCx growing MRSA but signed out AMA 01/17/21 re-admitted 01/17/21 and given naloxone for suspected heroin overdose still bacteremic 1. MRSA bacteremia - continue vancomycin, vanco trough-19.1,ID following, no vegetation on TTE though limited study and BCx still positive from 01/17/21.? will need 6 wk IV vancomycin from 1st negative BCx.? Repeat blood cultures since yesterday at 48 hour negative. will add picc line 2.MRSA peritonitis - continue vancomycin 3. decompensated cirrhosis with ascites will give salt-poor ,continue albumin. repeat paracentesis yesteday therapeutic: 2.2 liter has ascitis Doppler: Showed partial occlusive thrombosis of portal vein-discussed gi-we will repeat study 1 week to see the progression-if progresses further occlusion lopez- and may need anticoagulation. hold furosemide + adjusted spironolactone 25 b.i.d. monitor electrolytes 4. HCV reinfection [viral load 274k] - will need outpt treatment at hepatology center 5. septic pulmonary emboli- due to MRSA bacteremia; not hypoxic 6.leukocytosis- likely leukemoid reaction from infection, Heme consult done, bcr/abl pending 7.cellulitis of feet + hands- continue vancomycin 8. L glenohumeral/bursal fluid collection- not clinically consistent with septic arthritis per Orthopedics 9. hypoNa- mild, likely due to cirrhosis 10. LUQ hematoma- per Surgery, no intervention indicated still has abd discomfort-passing gases but did not had bowel movement for at least few days KUB today shows slightly more distension transverse/small-bowel area-possible Ielus , ct abd pending Patient is still producing gases, but no bowel movement yet. CT abdomen-shows mild: Distension mostly constipation no obstruction. start on clears ,gentle hydration, hold pain meds surgery reeval added 11. opioid use disorder- Addiction Medicine following-discussed with the added Addiction Team-hold methadone for 48 hours for now due to above ileus . Please avoid opioids use due to constipation as above, continue lidocaine patch, Tylenol, also added gabapentin for pain. got naloxone in ED for overdose 12 moderate protein-calorie malnutrition- continue suplemeents 13. VTE ppx - UFH ?dispo- once BCx clear, needs PICC line and STR Quality Stroke Does the patient have a stroke diagnosis?: No VTE Prior VTE?: No VTE Risk Level:: Medical - moderate - high VTE Device Contraindication: Treatment Not Indicated VTE Drug Contraindication: N/A - Med Ordered
[2021-01-23 14:38] LABS: Magnesium 2.2 mg/dL (1.6-2.6)
[2021-01-23] MEDS: vancomycin HCL 1,000 MG in 0.9 % Sodium Chloride 250 ML 270 MG IV ×2 (15:45→21:21)
[2021-01-23] MEDS: Dextrose 5 % and 0.9 % NaCl 1,000 ML 80 ML IVCONT (15:46)
[2021-01-23] MEDS: polyethylene glycoL 3350 17 GM POWD.PACK PO (15:46)
[2021-01-23] MEDS: Lidocaine 4 % Patch ADH..PATCH 1 PATCH TRANSDERMA (15:49)
[2021-01-23] MEDS: Acetaminophen 325 MG TABLET 650 MG PO (15:53)
--- NOTE | 2021-01-23 16:00 | MHC.RECOVRN ---
Met with pt to f/u regarding plan of decreased/held opioids. Pt understands these, including daily methadone, will be held at least until BM occurs. Discussed with pt need to get OOB and into recliner and accept available medications to help, including MiraLax. Pt concerned regarding pain management. Aware medications available include Tylenol, gabapentin, lidocaine patch. Pt agrees with and understands plan. Will continue to follow.
[2021-01-23] MEDS: Nicotine Polacrilex 2 MG GUM BUCCAL ×2 (18:51→22:49)
[2021-01-23] MEDS: Gabapentin 100 MG CAPSULE PO ×2 (18:51→21:21)
[2021-01-23] MEDS: Sennosides 8.6 MG TABLET 17.2 MG PO (21:20)
[2021-01-24] VITALS (9 sets, daily range): BP systolic 111–161; BP diastolic 67–92; PULSE 66–109; RESP 18–20; TEMP 36.2–37.4; O2SAT 93–98
[2021-01-24 04:17] LABS: Hemoglobin 11.6 g/dl (14.0-18.0); Mean Corpuscular HGB Conc 32.2 g/dl (31.0-36.0); Mean Corpuscular Hemoglobin 29.2 pg (27.0-33.0); Mean Corpuscular Volume 90.7 fL (80.0-98.0); Mean Platelet Volume 8.3 fL (9.4-12.4); Platelet Count 132 X10*3/uL (160-400); Red Blood Count 3.97 X10*6/uL (4.60-5.80); Red Cell Distribution Width 16.6 % (11.0-16.0); White Blood Count 13.2 X10*3/uL (4.8-10.8)
[2021-01-24 04:48] LABS: Vancomycin Trough 16.7 mcg/mL (10.0-20.0)
[2021-01-24 04:49] LABS: Alanine Aminotransferase 13 U/L (0-40); Alkaline Phosphatase 45 U/L (39-117); Anion Gap 12 (12-20); Aspartate Amino Transferase 26 U/L (5-37); Bilirubin Direct 0.9 mg/dL (0.0-0.5); Bilirubin Total 1.8 mg/dL (0.0-1.0); Blood Urea Nitrogen 14 mg/dL (9-16); Carbon Dioxide 23 mmol/L (22-29); Chloride 102 mmol/L (96-108); Creatinine Clr Calc Pharmacy 142.9; Estimated Glomerular Filt Rate > 60; Glucose Random 128 mg/dL (60-115); Potassium 4.7 mmol/L (3.3-5.1); Sodium 132 mmol/L (135-145)
[2021-01-24] MEDS: Dextrose 5 % and 0.9 % NaCl 1,000 ML 80 ML IVCONT (05:50)
[2021-01-24] MEDS: vancomycin HCL 1,000 MG in 0.9 % Sodium Chloride 250 ML 270 MG IV ×3 (05:50→20:53)
[2021-01-24] MEDS: Acetaminophen 325 MG TABLET 650 MG PO (05:50)
[2021-01-24] MEDS: Furosemide 20 MG TABLET PO (08:38)
[2021-01-24] MEDS: Lidocaine 4 % Patch ADH..PATCH 1 PATCH TRANSDERMA (08:38)
[2021-01-24] MEDS: Gabapentin 100 MG CAPSULE PO ×2 (08:38→20:34)
[2021-01-24] MEDS: Spironolactone 25 MG TABLET PO ×2 (08:38→18:29)
[2021-01-24] MEDS: methADONE HCl 20 MG/2 ML ORAL.CONC 55 MG PO (08:42)
--- NOTE | 2021-01-24 09:21 | P.PNGS_ITS ---
Subjective Subjective Date of Service: 01/24/21 <Eulalia Crump PA-C - Last Filed: 01/24/21 09:26> 01/24/21 <Almas Ventura MD - Last Filed: 01/24/21 13:09> Interval history: Continues to feel uncomfortable due to abdomen. He is passing flatus and had two bowel movements. Was OOB to chair yesterday. <Eulalia Crump PA-C - Last Filed: 01/24/21 09:26> Physical Exam Vital Signs: Vital Signs: Last Vital Signs Temp 99.3 F 01/24/21 08:00 Pulse 103 H 01/24/21 08:38 Resp 20 01/24/21 08:00 BP 161/89 H 01/24/21 08:38 Pulse Ox 95 01/24/21 08:00 Body Mass Index 19.2 <Eulalia Crump PA-C - Last Filed: 01/24/21 09:26> Const: General: alert <Eulalia Crump PA-C - Last Filed: 01/24/21 0 9:26> Nutritional Appearance: cachectic <Eulalia Crump PA-C - Last Filed: 01/24/21 09:26> Orientation/consciousness: patient oriented x3 <Eulalia Crump PA-C - Last Filed: 01/24/21 09:26> GI: Inspection: Yes distended (significantly) and Yes other (round) <Eulalia Crump PA-C - Last Filed: 01/24/21 09:26> Palpation (GI): Soft to palpation and Tenderness to palpation present (GI) <Eulalia Crump PA-C - Last Filed: 01/24/21 09:26> Percussion: Yes tympanic to percussion <JEYSON Castillo Last Filed: 01/24/21 09:26> Skin: Other: warm and dry <JEYSON Castillo Last Filed: 01/24/21 09:26> Neuro: General: patient oriented x3 <JEYSON Castillo Last Filed: 01/24/21 09:26> Objective Data Active Medications Acetaminophen (Acetaminophen 325 Mg Tablet) 650 mg PO Q6H PRN PRN Reason: Pain, Mild (Pain Scale 1-3) Last Admin: 01/24/21 05:50 Dose: 650 mg Documented by: MARCI Furosemide (Furosemide 20 Mg Tablet) 20 mg PO BID@0900,1800 [facility]; Protocol Last Admin: 01/24/21 08:38 Dose: 20 mg Documented by: SHYAM Gabapentin (Gabapentin 100 Mg Capsule) 100 mg PO TID [facility] Last Admin: 01/24/21 08:38 Dose: 100 mg Documented by: SHYAM Vancomycin HCl 1,000 mg/ (Sodium Chloride) 270 mls @ 270 mls/hr IV Q8H [facility] Last Infusion: 01/24/21 07:35 Dose: 0 mls/hr Documented by: MARCI Lidocaine (Lidocaine 4 % Patch Adh..Patch) 1 patch TRANSDERMA DAILY [facility]; Protocol Last Admin: 01/24/21 08:38 Dose: 1 patch Documented by: SHYAM Melatonin (Melatonin 3 Mg Tablet) 6 mg PO BEDTIME PRN PRN Reason: Insomnia Methadone HCl (Methadone Hcl 20 Mg/2 Ml Oral.Conc) 55 mg PO DAILY [facility] Last Admin: 01/24/21 08:42 Dose: 55 mg Documented by: SHYAM Metoclopramide HCl (Metoclopramide Hcl 10 Mg/2 Ml Vial) 10 mg IVPUSH Q6H PRN PRN Reason: Nausea Nicotine Polacrilex (Nicotine Polacrilex 2 Mg Gum) 2 mg BUCCAL Q1H PRN PRN Reason: nicotein Last Admin: 01/23/21 22:49 Dose: 2 mg Documented by: MARCI Pharmacy Consult (Consult Rx Vancomycin Dosing) 1 each MISCELLANE DAILY PRN PRN Reason: Consult order Pharmacy Consult (Consult Rx Vancomycin Dosing) 1 each MISCELLANE DAILY PRN PRN Reason: Consult order Polyethylene Glycol (Polyethylene Glycol 3350 17 Gm Powd.Pack) 17 gm PO DAILY [facility] Last Admin: 01/24/21 08:40 Dose: Not Given Documented by: SHYAM Non-Admin Reason: Physician Held Med Senna (Sennosides 8.6 Mg Tablet) 17.2 mg PO BEDTIME PRN PRN Reason: Constipation Last Admin: 01/23/21 21:20 Dose: 17.2 mg Documented by: MARCI Sodium Chloride (0.9 % Sodium Chloride Flush 3 Ml Syringe) 3 ml IVFLUSH QSHIFT [facility] Last Admin: 01/24/21 08:43 Dose: Not Given Documented by: SHYAM Non-Admin Reason: IV Running Spironolactone (Spironolactone 25 Mg Tablet) 25 mg PO BID@0900,1800 [facility]; Protocol Last Admin: 01/24/21 08:38 Dose: 25 mg Documented by: SHYAM <Eulalia Crump PA-C - Last Filed: 01/24/21 09:26> Labs CBC & Chem 7: : 01/24/21 04:09 01/24/21 04:09 <Eulalia Crump PA-C - Last Filed: 01/24/21 09:26> Labs: Laboratory Results - last 24 hr 01/23/21 01/24/21 01/24/21 04:00 04:09 04:09 MCV 90.7 MCH 29.2 MCHC 32.2 RDW 16.6 H Plt Count 132 L MPV 8.3 L Absolute Nucleated RBC 0.000 Nucleated RBC % (auto) 0.0 Anion Gap Estim Creat Clear Calc Estimated GFR Random Glucose Calcium Magnesium 2.2 Total Bilirubin Direct Bilirubin AST ALT Alkaline Phosphatase Total Protein Albumin Vancomycin Trough 16.7 01/24/21 04:09 MCV MCH MCHC RDW Plt Count MPV Absolute Nucleated RBC Nucleated RBC % (auto) Anion Gap 12 Estim Creat Clear Calc 142.9 Estimated GFR > 60 Random Glucose 128 H D Calcium 8.0 L Magnesium Total Bilirubin 1.8 H Direct Bilirubin 0.9 H AST 26 ALT 13 Alkaline Phosphatase 45 D Total Protein 6.0 L Albumin 3.0 L Vancomycin Trough <Eulalia Crump PA-C - Last Filed: 01/24/21 09:26> Microbiology Microbiology Results: Microbiology 01/20/21 12:30 Gram Stain - Final Ascites Fluid Anaerobic Culture - Preliminary Culture in progress. Body Fluid Culture - Final Methicillin Res Staph Aureus <Eulalia Crump PA-C - Last Filed: 01/24/21 09:26> Procedures Date of Service Date of Service: 01/24/21 <Eulalia Crump PA-C - Last Filed: 01/24/21 09:26> Progress Note: A&P Assessment and plan (1) Paralytic ileus: Status: Acute <Eulalia Crump PA-C - Last Filed: 01/24/21 09:26> Assessment and Plan: Passing flatus and BMs Abdomen distended with large amount of ascites Soft with tenderness diffusely Likely ileus Has multiple medical problems including chronic liver disease, spontaneous bacterial peritonitis with ascites Correct metabolic abnormalities, control infection Seen and examined - agree with AICHA Crump <Almas Ventura MD - Last Filed: 01/24/21 13:09> (2) Cirrhosis: Status: Acute <Eulalia Crump PA-C - Last Filed: 01/24/21 09:26> (3) SBP (spontaneous bacterial peritonitis): Status: Acute <Eulalia Crump PA-C - Last Filed: 01/24/21 09:26> (4) MRSA bacteremia: Status: Acute <Eulalia Crump PA-C - Last Filed: 01/24/21 09:26> (5) Ascites: Status: Acute <Eulalia Crump PA-C - Last Filed: 01/24/21 09:26> Assessment and Plan: 35-year-old male active IVDA admitted to the hospital for cellulitis found to have MRSA bacteremia with subsequent septic pulmonary emboli, decompensated liver cirrhosis, ascites and SBP requiring paracentesis and left upper quadrant hematoma. He developed worsening abd pain and distention. CT scan abd/pelvis and KUB were performed which demonstrated dilated loops of small bowel and dsitended right/proximal transverse colon with tapering without evidence of obstruction. Constipation also noted. Likely with segmental SB/colonic ileus which is probably multifactorial in etiology including narcotics and ascites/peritonitis. He remains distended and tympantic. He however is now moving his bowels. Continue bowel regimen and encouraged OOB to at least chair to encourage bowel function, limit use of narcotics. May need colonoscopy. Can continue clears as tolerated. If no improvement tomorrow, repeat AXR. Case discussed with Dr. Ventura. Will continue to follow. <Eulalia Crump PA-C - Last Filed: 01/24/21 09:26> Fall Risk Details Current Medications: Current Medications Acetaminophen (Acetaminophen 325 Mg Tablet) 650 mg PO Q6H PRN PRN Reason: Pain, Mild (Pain Scale 1-3) Last Admin: 01/24/21 05:50 Dose: 650 mg Documented by: Furosemide (Furosemide 20 Mg Tablet) 20 mg PO BID@0900,1800 [facility]; Protocol Last Admin: 01/24/21 08:38 Dose: 20 mg Documented by: Gabapentin (Gabapentin 100 Mg Capsule) 100 mg PO TID [facility] Last Admin: 01/24/21 08:38 Dose: 100 mg Documented by: Vancomycin HCl 1,000 mg/ (Sodium Chloride) 270 mls @ 270 mls/hr IV Q8H [facility] Last Infusion: 01/24/21 07:35 Dose: Infused Documented by: Lidocaine (Lidocaine 4 % Patch Adh..Patch) 1 patch TRANSDERMA DAILY [facility]; Protocol Last Admin: 01/24/21 08:38 Dose: 1 patch Documented by: Melatonin (Melatonin 3 Mg Tablet) 6 mg PO BEDTIME PRN PRN Reason: Insomnia Methadone HCl (Methadone Hcl 20 Mg/2 Ml Oral.Conc) 55 mg PO DAILY [facility] Last Admin: 01/24/21 08:42 Dose: 55 mg Documented by: Metoclopramide HCl (Metoclopramide Hcl 10 Mg/2 Ml Vial) 10 mg IVPUSH Q6H PRN PRN Reason: Nausea Nicotine Polacrilex (Nicotine Polacrilex 2 Mg Gum) 2 mg BUCCAL Q1H PRN PRN Reason: nicotein Last Admin: 01/23/21 22:49 Dose: 2 mg Documented by: Pharmacy Consult (Consult Rx Vancomycin Dosing) 1 each MISCELLANE DAILY PRN PRN Reason: Consult order Pharmacy Consult (Consult Rx Vancomycin Dosing) 1 each MISCELLANE DAILY PRN PRN Reason: Consult order Polyethylene Glycol (Polyethylene Glycol 3350 17 Gm Powd.Pack) 17 gm PO DAILY [facility] Last Admin: 01/24/21 08:40 Dose: Not Given Documented by: Senna (Sennosides 8.6 Mg Tablet) 17.2 mg PO BEDTIME PRN PRN Reason: Constipation Last Admin: 01/23/21 21:20 Dose: 17.2 mg Documented by: Sodium Chloride (0.9 % Sodium Chloride Flush 3 Ml Syringe) 3 ml IVFLUSH QSHIFT [facility] Last Admin: 01/24/21 08:43 Dose: Not Given Documented by: Spironolactone (Spironolactone 25 Mg Tablet) 25 mg PO BID@0900,1800 [facility]; Protocol Last Admin: 01/24/21 08:38 Dose: 25 mg Documented by: <Eulalia Crump PA-C - Last Filed: 01/24/21 09:26> Time Spent With Patient Time: Total time spent is greater than 50% in coordination of care (as documented) at patient's floor/unit and/or counseling patient: <Eulalia Crump PA-C - Last Filed: 01/24/21 09:26> Time with patient: 15 - 24 minutes <Eulalia Crump PA-C - Last Filed: 01/24/21 09:26> Quality Stroke Does the patient have a stroke diagnosis?: No <Eulalia Crump PA-C - Last Filed: 01/24/21 09:26> VTE Prior VTE?: No <Eulalia Crump PA-C - Last Filed: 01/24/21 09:26> VTE Risk Level:: Medical - moderate - high <Eulalia Crump PA-C - Last Filed: 01/24/21 09:26> VTE Device Contraindication: Treatment Not Indicated <Eulalia Crump PA-C - Last Filed: 01/24/21 09:26> VTE Drug Contraindication: N/A - Med Ordered <Eulalia Crump PA-C - Last Filed: 01/24/21 09:26>
[2021-01-24] MEDS: Albumin Human 25 % 100 ML IV ×4 (11:01→20:32)
[2021-01-24] MEDS: polyethylene glycoL 3350 17 GM POWD.PACK PO (11:03)
--- NOTE | 2021-01-24 11:14 | MHC.CM.PN ---
Per ROUNDS discussion,Patient is not yet medically cleared for dc (IV Albumin, IV Vanco).LT IVABT at [facility] is the goal for dc and CM will continue to follow.
--- NOTE | 2021-01-24 11:17 | MHC.RECOVRN ---
Met with pt to f/u regarding opioids being held. Pt reports loose stool yesterday evening. Methadone 55 mg has been ordered and pt received this morning. Pt denies withdrawal symptoms at this time. Will continue to follow.
--- NOTE | 2021-01-24 13:09 | MHC.CLN ---
Addendum entered by Alice Syed RD 01/24/21 17:44: AGREE WITH PROVIDER'S ASSESSMENT BELOW Original Note: F/U PT IS NOW ON FULL LIQUID DIET PO INTAKE DOCUMENTED 50% ON 01/23-01/24 PT RECEIVING ENSURE CLEAR SUPPLEMENT TID TO PROVIDE 720 KCALS AND 24 GRAMS PROTEIN CONTINUE TO MONITOR PO INTAKE CLOSELY MONITOR SUPPLEMENT ACCEPTANCE
[2021-01-24] MEDS: Lidocaine HCl 1 % MPF 5 ML VIAL SUBCUT (14:23)
--- NOTE | 2021-01-24 15:16 | HO.PM.IMPN ---
Subjective Subjective Date of Service: 01/25/21 Interval History: abdominal ileus , Ascitis , abd pain, decompensated liver disease. Review of Systems patient's abdomen is still tense and globular. still could able to take p.o. liquids had 3 BMs since yesterday bowels mostly liquidy started on laxatives yesterday. denies any fever or chills Physical Exam Vital Signs: Vital Signs: Last Vital Signs Temp 98.1 F 01/24/21 12:00 Pulse 107 H 01/24/21 12:00 Resp 20 01/24/21 12:00 BP 157/92 H 01/24/21 12:00 Pulse Ox 94 01/24/21 12:00 Body Mass Index 19.2 Gen:? ill apearing, chronically? sick . HEENT: moist mucus membranes. anicteric Neck: supple Lungs: clear to auscultation bilaterally Heart: regular rate and rhythm, no murmurs Abd: mild distended , globular , no rebound or guarding , bm present. Ext: no edema Skin: erythema on ankles and feet Neuro: AOx3, no asterixis elicited Psych: appropriate affect Objective Data Active Medications Acetaminophen (Acetaminophen 325 Mg Tablet) 650 mg PO Q6H PRN PRN Reason: Pain, Mild (Pain Scale 1-3) Last Admin: 01/24/21 05:50 Dose: 650 mg Documented by: MARCI Furosemide (Furosemide 20 Mg/2 Ml Vial) 20 mg IVPUSH Q12H [facility]; Protocol Gabapentin (Gabapentin 100 Mg Capsule) 100 mg PO TID [facility] Last Admin: 01/24/21 15:12 Dose: Not Given Documented by: SHYAM Non-Admin Reason: Physician Held Med Vancomycin HCl 1,000 mg/ (Sodium Chloride) 270 mls @ 270 mls/hr IV Q8H [facility] Last Infusion: 01/24/21 07:35 Dose: 0 mls/hr Documented by: MARCI Albumin Human (Kedbumin 25 %) 100 mls @ 100 mls/hr IV Q6H [facility] Stop: 01/25/21 08:14 Lidocaine (Lidocaine 4 % Patch Adh..Patch) 1 patch TRANSDERMA DAILY [facility]; Protocol Last Admin: 01/24/21 08:38 Dose: 1 patch Documented by: SHYAM Melatonin (Melatonin 3 Mg Tablet) 6 mg PO BEDTIME PRN PRN Reason: Insomnia Methadone HCl (Methadone Hcl 20 Mg/2 Ml Oral.Conc) 55 mg PO DAILY [facility] Last Admin: 01/24/21 08:42 Dose: 55 mg Documented by: SHYAM Metoclopramide HCl (Metoclopramide Hcl 10 Mg/2 Ml Vial) 10 mg IVPUSH Q6H PRN PRN Reason: Nausea Nicotine Polacrilex (Nicotine Polacrilex 2 Mg Gum) 2 mg BUCCAL Q1H PRN PRN Reason: nicotein Last Admin: 01/23/21 22:49 Dose: 2 mg Documented by: MARCI Pharmacy Consult (Consult Rx Vancomycin Dosing) 1 each MISCELLANE DAILY PRN PRN Reason: Consult order Pharmacy Consult (Consult Rx Vancomycin Dosing) 1 each MISCELLANE DAILY PRN PRN Reason: Consult order Polyethylene Glycol (Polyethylene Glycol 3350 17 Gm Powd.Pack) 17 gm PO DAILY [facility] Last Admin: 01/24/21 11:03 Dose: 17 gm Documented by: SHYAM Senna (Sennosides 8.6 Mg Tablet) 17.2 mg PO BEDTIME PRN PRN Reason: Constipation Last Admin: 01/23/21 21:20 Dose: 17.2 mg Documented by: MARCI Sodium Chloride (0.9 % Sodium Chloride Flush 3 Ml Syringe) 3 ml IVFLUSH [facility] Last Admin: 01/24/21 08:43 Dose: Not Given Documented by: SHYAM Non-Admin Reason: IV Running Spironolactone (Spironolactone 25 Mg Tablet) 25 mg PO BID@0900,1800 [facility]; Protocol Last Admin: 01/24/21 08:38 Dose: 25 mg Documented by: SHYAM Labs CBC & Chem 7: 01/24/21 04:09 01/25/21 04:00 Labs: Laboratory Results - last 24 hr 01/24/21 01/24/21 01/24/21 04:09 04:09 04:09 MCV 90.7 MCH 29.2 MCHC 32.2 RDW 16.6 H Plt Count 132 L MPV 8.3 L Absolute Nucleated RBC 0.000 Nucleated RBC % (auto) 0.0 Anion Gap 12 Estim Creat Clear Calc 142.9 Estimated GFR > 60 Random Glucose 128 H D Calcium 8.0 L Total Bilirubin 1.8 H Direct Bilirubin 0.9 H AST 26 ALT 13 Alkaline Phosphatase 45 D Total Protein 6.0 L Albumin 3.0 L Vancomycin Trough 16.7 Microbiology Microbiology Results: Microbiology 01/20/21 12:30 Gram Stain - Final Ascites Fluid Anaerobic Culture - Final Body Fluid Culture - Final Methicillin Res Staph Aureus Assessment and Plan (1) Cirrhosis: Status: Acute (2) MRSA bacteremia: Status: Acute (3) Hematoma and contusion: Status: Acute Assessment and Plan: 35yo M who uses injection heroin and was diagnosed with MRSA bacteremia in the ED 01/02/21 but could not be contacted to be called back admitted 01/15-01/17/21 with ascites growing MRSA [[id number] WBCs, 86% PMNs] and persistent positive BCx growing MRSA but signed out AMA 01/17/21 re-admitted 01/17/21 and given naloxone for suspected heroin overdose still bacteremic 1. MRSA bacteremia - continue vancomycin, vanco trough-16.7, no vegetation on TTE though limited study Repeat blood [id number] hour negative. will need 6 wk IV vancomycin from 1st negative BCx.? ?plan picc line on compensated liver dis lopez. 2.MRSA peritonitis- continue vancomycin 3. decompensated cirrhosis with ascites will give salt-poor ,continue albumin. ?repeat paracentesis yesteday therapeutic: around 3.1 liter. has ascitis Doppler: Showed partial occlusive thrombosis of portal vein-discussed gi-we will repeat study 1 week to see the progression-if progresses further occlusion lopez-and may need anticoagulation. hold? furosemide + adjusted spironolactone 25 b.i.d. monitor electrolytes 4. HCV reinfection [viral load 274k] - will need outpt treatment at hepatology center 5. septic pulmonary emboli- due to MRSA bacteremia; not hypoxic 6.leukocytosis- likely leukemoid reaction from infection, Heme consult done, bcr/abl pending 7.cellulitis of feet + hands- continue vancomycin 8. L glenohumeral/bursal fluid collection- not clinically consistent with septic arthritis per Orthopedics 9. hypoNa- mild, likely due to cirrhosis 10. LUQ hematoma- per Surgery, no intervention indicated still has abd discomfort-passing gases but did not had bowel movement for at least few days KUB today? shows slightly more distension transverse/small-bowel area-possible Ielus? , ct abd noted -constipation vs ielus Patient is still producing gases, but no bowel movement yet.. start on clears , Ensure, hold pain meds surgery eval noted- ileus versus constipation multifactorial: ascites, MRSA infection, pain medication. patient received laxatives yesterday today- has 3 bowel movements mostly liquid will check stool studies. 11. opioid use disorder- Addiction Medicine following-discussed with the added Addiction Team-hold methadone for 48 hours for now due to above ileus . Please avoid opioids use due to constipation as above, continue lidocaine patch, Tylenol, also added gabapentin for pain. ?got naloxone in ED for overdose 12 moderate protein-calorie malnutrition- continue suplemeents 13. VTE ppx - UFH ?dispo- once BCx clear, needs PICC line and STR patient has multi multiplecomorbidities as well as chronically sick, ill appearing, decompensated liver cirrhosis, MRSA bacteremia and peritonitis- discussed with the patient prognosis is poor. Quality Stroke Does the patient have a stroke diagnosis?: No VTE Prior VTE?: No VTE Risk Level:: Medical - moderate - high VTE Device Contraindication: Treatment Not Indicated VTE Drug Contraindication: N/A - Med Ordered
[2021-01-24 15:32] LABS: Triglycerides 51 mg/dL
[2021-01-24] MEDS: Furosemide 20 MG/2 ML VIAL IVPUSH (16:04)
--- NOTE | 2021-01-24 16:48 | HO.ADDICTPRO ---
Subjective Subjective Date of Service: 01/24/21 Reason For Visit: Bacteremia Guardianship: No Medical Problems Affecting Mental Status: No Interim History: Patient reports had paracentesis today, still has discomfort. Denies any type of withdrawals or cravings at this time. Denies any thoughts of harm to self or others. He understands rationale for holding methadone tomorrow, as opioids can further worsen constipation. He does report loose BM today, although he understands situation. He states he was not taking gabapentin as he was fearful it would keep him awake. Medication education provided. Medication Compliance: Yes Side effects from medications: Yes (constipation opioids, including methadone) Review of Systems Acute medical concerns: Yes Medical Review of Systems: unchanged Review of Systems Review of Systems Thin, cachectic appearing male, appears fatigued. Reclining in bed, ambulation not observed. Constitutional: Reports no additional constitutional complaints and Reports fatigue Eyes: Reports no additional eye complaints Reports Normal hearing present Cardiovascular: Reports no additional cardiovascular complaints Respiratory: Reports no additional respiratory complaints Gastrointestinal: Reports abdominal pain, Reports bloating and Reports constipation Genitourinary: Reports no additional male genitourinary complaints Musculoskeletal: Reports no additional musculoskeletal complaints Skin/Breast: Reports system reviewed and no additional complaints, except as docu Reports as per HPI and Reports Normal hearing present Psychiatric: Reports no additional psychiatric complaints Endocrine: Reports fatigue Hematologic/Lymphatic: Reports no additional hematologic/lymphatic complaints Allergic/Immunologic: Reports no additional allergic/immunologic complaints Mental Status Exam Mental Status Exam Narrative: To check appearing male, fatigued. Resting in bed, wearing hospital garb. Eye contact within normal limits. Alert and oriented x4. No involuntary movements noted, motor activity calm. No evidence of any type of opioid withdrawals or cravings noted. Manner and behavior were calm, cooperative. Speech was fluent, unimpaired, normal rate and volume. Mood ?okay ?. Affect stable, full range. Thought process and associations linear, goal directed. Thought content normal, future oriented. No evidence of any type of delusional thought or hallucinations noted. Patient denied any thoughts of harm to self or others, reports he feels safe. Appears to be reliable historian. Cognition and memory appear grossly intact. Attention appropriate to situation. Judgment and insight appear intact at this time. Ambulation not observed, no cogwheeling or rigidity noted. Diagnostics Vital Signs (24Hr): Vital Signs - 24 hr 01/23/21 19:00 01/24/21 00:00 01/24/21 03:58 Temperature 98.3 F 97.1 F 97.8 F Pulse Rate 105 H 80 109 H Respiratory Rate 18 18 18 Blood Pressure 140/78 H 127/69 127/84 Pulse Oximetry 94 97 95 01/24/21 08:00 01/24/21 08:38 01/24/21 12:00 Temperature 99.3 F 98.1 F Pulse Rate 103 H 103 H 107 H Respiratory Rate 20 20 Blood Pressure 161/89 H 161/89 H 157/92 H Pulse Oximetry 95 94 01/24/21 15:36 Temperature 98.6 F Pulse Rate 66 Respiratory Rate 18 Blood Pressure 139/75 Pulse Oximetry 93 Body Mass Index 19.2 Labs Results: 01/24/21 04:09 01/24/21 04:09 Labs: Laboratory Results - last 48 hr 01/23/21 01/23/21 01/23/21 04:00 04:00 04:00 WBC 18.8 H RBC 4.08 L Hgb 11.7 L Hct 36.9 L MCV 90.4 MCH 28.7 MCHC 31.7 RDW 16.4 H Plt Count 141 L MPV 8.4 L Absolute Nucleated RBC 0.000 Nucleated RBC % (auto) 0.0 Sodium Potassium Chloride Carbon Dioxide Anion Gap BUN Creatinine Cancelled Estim Creat Clear Calc Cancelled Estimated GFR Cancelled Random Glucose Calcium Magnesium Total Bilirubin Direct Bilirubin AST ALT Alkaline Phosphatase Total Protein Albumin Triglycerides Vancomycin Trough 11.6 01/23/21 01/24/21 01/24/21 04:00 04:09 04:09 WBC 13.2 H RBC 3.97 L Hgb 11.6 L Hct 36.0 L MCV 90.7 MCH 29.2 MCHC 32.2 RDW 16.6 H Plt Count 132 L MPV 8.3 L Absolute Nucleated RBC 0.000 Nucleated RBC % (auto) 0.0 Sodium 132 L Potassium 4.8 Chloride 99 Carbon Dioxide 23 Anion Gap 15 BUN 16 Creatinine 0.57 Estim Creat Clear Calc 147.9 Estimated GFR > 60 Random Glucose 76 Calcium 8.3 L Magnesium 2.2 Total Bilirubin Direct Bilirubin AST ALT Alkaline Phosphatase Total Protein Albumin Triglycerides Vancomycin Trough 16.7 01/24/21 01/24/21 04:09 15:08 WBC RBC Hgb Hct MCV MCH MCHC RDW Plt Count MPV Absolute Nucleated RBC Nucleated RBC % (auto) Sodium 132 L Potassium 4.7 Chloride 102 Carbon Dioxide 23 Anion Gap 12 BUN 14 Creatinine 0.59 Estim Creat Clear Calc 142.9 Estimated GFR > 60 Random Glucose 128 H D Calcium 8.0 L Magnesium Total Bilirubin 1.8 H Direct Bilirubin 0.9 H AST 26 ALT 13 Alkaline Phosphatase 45 D Total Protein 6.0 L Albumin 3.0 L Triglycerides 51 Vancomycin Trough Imaging Radiology Impressions: ITS Impressions Chest X-Ray 01/17/21 21:02 IMPRESSION: Multifocal airspace opacities are new/increased when compared to the chest radiograph from 01/02/2021 and correlate with septic emboli disease and multifocal pneumonia noted on the CT from 01/15/2021. Small left pleural effusion. Paracentesis Ultrasound 01/20/21 13:00 IMPRESSION: Ultrasound-guided paracentesis. Doppler Study Ultrasound 01/21/21 16:14 IMPRESSION: Very limited exam. There appears to be nonocclusive thrombus in the main portal vein. Prominent portal vessels questionable for developing collateral vessels. The intrahepatic IVC is patent but has an abnormal monophasic waveform. Cirrhosis and ascites. Repeat imaging following paracentesis should be considered. Paracentesis Ultrasound 01/22/21 15:00 IMPRESSION: Complex ascites with portions appearing to be gelatinous in nature. Aspiration of 2.2 L of clear karen-colored fluid. Doppler Study Ultrasound 01/22/21 15:07 IMPRESSION: Partial portal vein occlusive disease with hepatopedal flow still noted. Patent hepatic artery. Hepatic veins appear unremarkable. KUB X-Ray 01/23/21 09:51 IMPRESSION: Increased gaseous distention large and small bowel since CT 01/15/2021. Distal descending and sigmoid colon nondistended. Abdomen/Pelvis CT 01/23/21 12:35 IMPRESSION: Cirrhosis with diffuse ascites. Moderate constipation. No obstruction, free air. Mild gaseous distention of colon. Bilateral lower lobe consolidations with small pleural effusions and adjacent right middle lobe and lingular atelectasis/scarring. Medications Medications Current Medications Acetaminophen (Acetaminophen 325 Mg Tablet) 650 mg PO Q6H PRN PRN Reason: Pain, Mild (Pain Scale 1-3) Last Admin: 01/24/21 05:50 Dose: 650 mg Documented by: Furosemide (Furosemide 20 Mg/2 Ml Vial) 20 mg IVPUSH Q12H [facility]; Protocol Last Admin: 01/24/21 16:04 Dose: 20 mg Documented by: Gabapentin (Gabapentin 100 Mg Capsule) 100 mg PO TID [facility] Last Admin: 01/24/21 15:12 Dose: Not Given Documented by: Vancomycin HCl 1,000 mg/ (Sodium Chloride) 270 mls @ 270 mls/hr IV Q8H [facility] Last Infusion: 01/24/21 07:35 Dose: Infused Documented by: Albumin Human (Kedbumin 25 %) 100 mls @ 100 mls/hr IV Q6H [facility] Stop: 01/25/21 08:14 Last Admin: 01/24/21 16:02 Dose: 100 mls/hr Documented by: Lidocaine (Lidocaine 4 % Patch Adh..Patch) 1 patch TRANSDERMA DAILY [facility]; Protocol Last Admin: 01/24/21 08:38 Dose: 1 patch Documented by: Melatonin (Melatonin 3 Mg Tablet) 6 mg PO BEDTIME PRN PRN Reason: Insomnia Methadone HCl (Methadone Hcl 20 Mg/2 Ml Oral.Conc) 55 mg PO DAILY [facility] Last Admin: 01/24/21 08:42 Dose: 55 mg Documented by: Metoclopramide HCl (Metoclopramide Hcl 10 Mg/2 Ml Vial) 10 mg IVPUSH Q6H PRN PRN Reason: Nausea Nicotine Polacrilex (Nicotine Polacrilex 2 Mg Gum) 2 mg BUCCAL Q1H PRN PRN Reason: nicotein Last Admin: 01/23/21 22:49 Dose: 2 mg Documented by: Pharmacy Consult (Consult Rx Vancomycin Dosing) 1 each MISCELLANE DAILY PRN PRN Reason: Consult order Pharmacy Consult (Consult Rx Vancomycin Dosing) 1 each MISCELLANE DAILY PRN PRN Reason: Consult order Polyethylene Glycol (Polyethylene Glycol 3350 17 Gm Powd.Pack) 17 gm PO DAILY [facility] Last Admin: 01/24/21 11:03 Dose: 17 gm Documented by: Senna (Sennosides 8.6 Mg Tablet) 17.2 mg PO BEDTIME PRN PRN Reason: Constipation Last Admin: 01/23/21 21:20 Dose: 17.2 mg Documented by: Sodium Chloride (0.9 % Sodium Chloride Flush 3 Ml Syringe) 3 ml IVFLUSH QSHIFT [facility] Last Admin: 01/24/21 08:43 Dose: Not Given Documented by: Spironolactone (Spironolactone 25 Mg Tablet) 25 mg PO BID@0900,1800 [facility]; Protocol Last Admin: 01/24/21 08:38 Dose: 25 mg Documented by: Allergies Allergies Allergy/AdvReac Type Severity Reaction Status Date / Time No Known Allergies Allergy Verified 01/02/21 06:31 [No Known Allergies*] Assessment & Plan Assessment & Plan (1) Opioid use disorder: Status: Acute Code(s): F11.90 - Opioid use, unspecified, uncomplicated Assessment and Plan: Patient with opioid use disorder, severe, dependence, on methadone maintenance therapy. Discussed current medical concerns including constipation, distension related to decompensated liver with cirrhosis. Discussed holding methadone tomorrow, as it is known to have constipation as a side effect. Patient was in agreement with this plan. Discussed utilizing gabapentin. He expressed concerns that when he had taken it illicitly in the past it caused him to stay awake. Discussed its use to help ease anxiety and help with pain management, he was agreeable to using it as needed while here. He reports he is using the lidocaine and Tylenol as prescribed. Denies any type of withdrawals or cravings at this time. Assessment and Plan: 1.Hold methadone tomorrow morning. 2. Addiction services will continue to follow patient, may want to consider adding low-dose methadone if constipation persists. 3. Patient is willing to use gabapentin to assist with pain. Discussed with Dr. Loco oT directly, while on unit. Thank you. Please feel free to contact us as needed, we will continue to follow patient along with you while he is here. I spent minutes with the patient and/or on the patient floor today, greater than?50% of which was spent counseling/coordinating care.
[2021-01-24] MEDS: 0.9 % Sodium Chloride Flush 3 ML SYRINGE IVFLUSH (20:34)
[2021-01-25] VITALS (10 sets, daily range): BP systolic 129–165; BP diastolic 68–85; PULSE 93–106; RESP 14–20; TEMP 36.2–37.2; O2SAT 93–97
[2021-01-25] MEDS: Furosemide 20 MG/2 ML VIAL IVPUSH ×3 (01:15→22:05)
[2021-01-25] MEDS: Albumin Human 25 % 100 ML IV ×2 (01:15→09:41)
[2021-01-25 04:31] LABS: Alanine Aminotransferase 11 U/L (0-40); Albumin Level 3.6 g/dL (3.5-5.0); Alkaline Phosphatase 38 U/L (39-117); Anion Gap 12 (12-20); Aspartate Amino Transferase 20 U/L (5-37); Bilirubin Direct 0.8 mg/dL (0.0-0.5); Bilirubin Total 2.1 mg/dL (0.0-1.0); Blood Urea Nitrogen 10 mg/dL (9-16); Calcium 7.9 mg/dL (8.4-10.2); Carbon Dioxide 28 mmol/L (22-29); Chloride 98 mmol/L (96-108); Creatinine Clr Calc Pharmacy 145.4; Estimated Glomerular Filt Rate > 60; Glucose Random 98 mg/dL (60-115); Potassium 3.7 mmol/L (3.3-5.1); Sodium 134 mmol/L (135-145)
[2021-01-25 04:34] LABS: Vancomycin Trough 18.8 mcg/mL (10.0-20.0)
[2021-01-25] MEDS: vancomycin HCL 1,000 MG in 0.9 % Sodium Chloride 250 ML 270 MG IV (05:48)
--- NOTE | 2021-01-25 08:06 | HE.PHANOTE ---
VANCOMYCIN DOSING ADJUSTMENT PATIENT TROUGH CAME BACK AT 18.8 01/25. BASED ON PREVIOUS TROUGH THIS IS TRENDING UPWARDS. DOSE CHANGE TO 1500Q 12 WITH PREDICTED TROUGH OF 13.7 INSTEAD OF 15.6 WITH 1000MG Q 8. NEXT TROUGH 01/26 1500
[2021-01-25] MEDS: Potassium Chloride Packet 20 MEQ PACKET 40 MEQ PO (09:30)
[2021-01-25] MEDS: polyethylene glycoL 3350 17 GM POWD.PACK PO (09:30)
[2021-01-25] MEDS: Lidocaine 4 % Patch ADH..PATCH 1 PATCH TRANSDERMA (09:31)
[2021-01-25] MEDS: Docusate Sodium 100 MG CAPSULE PO ×2 (09:31→22:05)
[2021-01-25] MEDS: Gabapentin 100 MG CAPSULE PO ×3 (09:31→22:04)
[2021-01-25] MEDS: 0.9 % Sodium Chloride Flush 3 ML SYRINGE IVFLUSH ×2 (09:31→18:18)
[2021-01-25] MEDS: Acetaminophen 325 MG TABLET 650 MG PO ×2 (09:31→18:18)
[2021-01-25] MEDS: Spironolactone 25 MG TABLET PO ×2 (09:31→18:18)
--- NOTE | 2021-01-25 09:41 | P.PNGS_ITS ---
Subjective Subjective Date of Service: 01/25/21 Interval history: Patient reports continued abdominal pain; tolerating po, having BMs. Physical Exam Vital Signs: Vital Signs: Last Vital Signs Temp 98.0 F 01/25/21 07:27 Pulse 102 H 01/25/21 09:31 Resp 18 01/25/21 07:27 BP 140/75 H 01/25/21 09:31 Pulse Ox 94 01/25/21 09:29 Body Mass Index 19.2 Const General:?alert Nutritional Appearance:?cachectic Orientation/consciousness:?patient oriented x3 GI Inspection:?Yes distended (significantly) and Yes other (round) Palpation (GI):?Soft to palpation and Tenderness to palpation present (GI) Percussion:?Yes tympanic to percussion Skin Other:?warm and dry Neuro General:?patient oriented x3 Objective Data Active Medications Acetaminophen (Acetaminophen 325 Mg Tablet) 650 mg PO Q6H PRN PRN Reason: Pain, Mild (Pain Scale 1-3) Last Admin: 01/25/21 09:31 Dose: 650 mg Documented by: IRAM Docusate Sodium (Docusate Sodium 100 Mg Capsule) 100 mg PO BID [facility] Last Admin: 01/25/21 09:31 Dose: 100 mg Documented by: IRAM Furosemide (Furosemide 20 Mg/2 Ml Vial) 20 mg IVPUSH Q12H [facility]; Protocol Last Admin: 01/25/21 09:31 Dose: 20 mg Documented by: IRAM Gabapentin (Gabapentin 100 Mg Capsule) 100 mg PO TID [facility] Last Admin: 01/25/21 09:31 Dose: 100 mg Documented by: IRAM Vancomycin HCl 1,500 mg/ (Sodium Chloride) 500 mls @ 333.333 mls/hr IV Q12H [facility] Lidocaine (Lidocaine 4 % Patch Adh..Patch) 1 patch TRANSDERMA DAILY [facility]; Protocol Last Admin: 01/25/21 09:31 Dose: 1 patch Documented by: IRAM Melatonin (Melatonin 3 Mg Tablet) 6 mg PO BEDTIME PRN PRN Reason: Insomnia Methadone HCl (Methadone Hcl 20 Mg/2 Ml Oral.Conc) 55 mg PO DAILY [facility] Last Admin: 01/24/21 08:42 Dose: 55 mg Documented by: DOBROB Metoclopramide HCl (Metoclopramide Hcl 10 Mg/2 Ml Vial) 10 mg IVPUSH Q6H PRN PRN Reason: Nausea Nicotine Polacrilex (Nicotine Polacrilex 2 Mg Gum) 2 mg BUCCAL Q1H PRN PRN Reason: carol Last Admin: 01/23/21 22:49 Dose: 2 mg Documented by: MARCI Pharmacy Consult (Consult Rx Vancomycin Dosing) 1 each MISCELLANE DAILY PRN PRN Reason: Consult order Pharmacy Consult (Consult Rx Vancomycin Dosing) 1 each MISCELLANE DAILY PRN PRN Reason: Consult order Polyethylene Glycol (Polyethylene Glycol 3350 17 Gm Powd.Pack) 17 gm PO DAILY [facility] Last Admin: 01/25/21 09:30 Dose: 17 gm Documented by: IRAM Sodium Chloride (0.9 % Sodium Chloride Flush 3 Ml Syringe) [facility] Last Admin: 01/25/21 09:31 Dose: 3 ml Documented by: IRAM Spironolactone (Spironolactone 25 Mg Tablet) 25 mg PO BID@0900,1800 [facility]; Protocol Last Admin: 01/25/21 09:31 Dose: 25 mg Documented by: IRAM Labs CBC & Chem 7: 01/24/21 04:09 01/25/21 04:00 Labs: Laboratory Results - last 24 hr 01/24/21 01/25/21 01/25/21 15:08 04:00 04:00 Anion Gap 12 Estim Creat Clear Calc 145.4 Estimated GFR > 60 Random Glucose 98 Calcium 7.9 L Total Bilirubin 2.1 H Direct Bilirubin 0.8 H AST 20 ALT 11 Alkaline Phosphatase 38 L Total Protein 6.0 L Albumin 3.6 Triglycerides 51 Vancomycin Trough 18.8 Microbiology Microbiology Results: Microbiology 01/20/21 06:33 Blood Culture - Final Blood - Venous No growth after 5 days. 01/20/21 06:33 Blood Culture - Final Blood - Venous No growth after 5 days. 01/20/21 12:30 Gram Stain - Final Ascites Fluid Anaerobic Culture - Final Body Fluid Culture - Final Methicillin Res Staph Aureus Procedures Date of Service Date of Service: 01/25/21 Progress Note: A&P Assessment and plan (1) Paralytic ileus: Status: Acute (2) Alcohol use disorder, severe, dependence: Status: Acute (3) SBP (spontaneous bacterial peritonitis): Status: Acute Assessment and Plan: 35-year-old male active IVDA admitted to the hospital for cellulitis found to have MRSA bacteremia with subsequent septic pulmonary emboli, decompensated liver cirrhosis, ascites and SBP requiring paracentesis and left upper quadrant hematoma. He developed worsening abd pain and distention. CT scan abd/pelvis and KUB were performed which demonstrated dilated loops of small bowel and distended right/proximal transverse colon with tapering without evidence of obstruction. Constipation also noted. Likely with segmental SB/colonic ileus which is probably multifactorial in etiology including narcotics and ascites/peritonitis. He continues to pass bowels and is tolerating po. Will continue to monitor. Fall Risk Details Current Medications: Current Medications Acetaminophen (Acetaminophen 325 Mg Tablet) 650 mg PO Q6H PRN PRN Reason: Pain, Mild (Pain Scale 1-3) Last Admin: 01/25/21 09:31 Dose: 650 mg Documented by: Docusate Sodium (Docusate Sodium 100 Mg Capsule) 100 mg PO BID [facility] Last Admin: 01/25/21 09:31 Dose: 100 mg Documented by: Furosemide (Furosemide 20 Mg/2 Ml Vial) 20 mg IVPUSH Q12H [facility]; Protocol Last Admin: 01/25/21 09:31 Dose: 20 mg Documented by: Gabapentin (Gabapentin 100 Mg Capsule) 100 mg PO TID [facility] Last Admin: 01/25/21 09:31 Dose: 100 mg Documented by: Vancomycin HCl 1,500 mg/ (Sodium Chloride) 500 mls @ 333.333 mls/hr IV Q12H [facility] Lidocaine (Lidocaine 4 % Patch Adh..Patch) 1 patch TRANSDERMA DAILY [facility]; Protocol Last Admin: 01/25/21 09:31 Dose: 1 patch Documented by: Melatonin (Melatonin 3 Mg Tablet) 6 mg PO BEDTIME PRN PRN Reason: Insomnia Methadone HCl (Methadone Hcl 20 Mg/2 Ml Oral.Conc) 55 mg PO DAILY [facility] Last Admin: 01/24/21 08:42 Dose: 55 mg Documented by: Metoclopramide HCl (Metoclopramide Hcl 10 Mg/2 Ml Vial) 10 mg IVPUSH Q6H PRN PRN Reason: Nausea Nicotine Polacrilex (Nicotine Polacrilex 2 Mg Gum) 2 mg BUCCAL Q1H PRN PRN Reason: nicotein Last Admin: 01/23/21 22:49 Dose: 2 mg Documented by: Pharmacy Consult (Consult Rx Vancomycin Dosing) 1 each MISCELLANE DAILY PRN PRN Reason: Consult order Pharmacy Consult (Consult Rx Vancomycin Dosing) 1 each MISCELLANE DAILY PRN PRN Reason: Consult order Polyethylene Glycol (Polyethylene Glycol 3350 17 Gm Powd.Pack) 17 gm PO DAILY [facility] Last Admin: 01/25/21 09:30 Dose: 17 gm Documented by: Sodium Chloride (0.9 % Sodium Chloride Flush 3 Ml Syringe) [facility] Last Admin: 01/25/21 09:31 Dose: 3 ml Documented by: Spironolactone (Spironolactone 25 Mg Tablet) 25 mg PO BID@0900,1800 [facility]; Protocol Last Admin: 01/25/21 09:31 Dose: 25 mg Documented by: Time Spent With Patient Time: Total time spent is greater than 50% in coordination of care (as documented) at patient's floor/unit and/or counseling patient: Time with patient: 15 - 24 minutes Quality Stroke Does the patient have a stroke diagnosis?: No VTE Prior VTE?: No VTE Risk Level:: Medical - moderate - high VTE Device Contraindication: Treatment Not Indicated VTE Drug Contraindication: N/A - Med Ordered
--- NOTE | 2021-01-25 11:32 | P.PNIM_ITS ---
Subjective Subjective Date of Service: 01/25/21 Interval History: Cirrhosis, ascites, ileus Review of Systems Patient says abdominal pain is slightly better, does not have any nausea or vomiting today. Passed a small BM last night Denies any fever or chills or cough or phlegm No weakness or numbness Physical Exam Vital Signs: Vital Signs: Last Vital Signs Temp 98.0 F 01/25/21 07:27 Pulse 103 H 01/25/21 10:02 Resp 14 01/25/21 10:02 BP 165/85 H 01/25/21 10:02 Pulse Ox 93 01/25/21 10:02 Body Mass Index 19.2 Gen:? ill apearing, chronically? sick . HEENT: moist mucus membranes. anicteric Neck: supple Lungs: clear to auscultation bilaterally Heart: regular rate and rhythm, no murmurs Abd: distended but slightly better than yesterday , globular , no rebound or guarding , bm present. Ext: no edema Skin: erythema on ankles and feet Neuro: AOx3, no asterixis elicited Psych: appropriate affect Objective Data Active Medications Acetaminophen (Acetaminophen 325 Mg Tablet) 650 mg PO Q6H PRN PRN Reason: Pain, Mild (Pain Scale 1-3) Last Admin: 01/25/21 09:31 Dose: 650 mg Documented by: IRAM Docusate Sodium (Docusate Sodium 100 Mg Capsule) 100 mg PO BID [facility] Last Admin: 01/25/21 09:31 Dose: 100 mg Documented by: IRAM Furosemide (Furosemide 20 Mg/2 Ml Vial) 20 mg IVPUSH Q12H [facility]; Protocol Last Admin: 01/25/21 09:31 Dose: 20 mg Documented by: IRAM Gabapentin (Gabapentin 100 Mg Capsule) 100 mg PO TID [facility] Last Admin: 01/25/21 09:31 Dose: 100 mg Documented by: IRAM Vancomycin HCl 1,500 mg/ (Sodium Chloride) 500 mls @ 333.333 mls/hr IV Q12H [facility] Lidocaine (Lidocaine 4 % Patch Adh..Patch) 1 patch TRANSDERMA DAILY [facility]; Protocol Last Admin: 01/25/21 09:31 Dose: 1 patch Documented by: IRAM Melatonin (Melatonin 3 Mg Tablet) 6 mg PO BEDTIME PRN PRN Reason: Insomnia Methadone HCl (Methadone Hcl 20 Mg/2 Ml Oral.Conc) 55 mg PO DAILY [facility] Last Admin: 01/24/21 08:42 Dose: 55 mg Documented by: DOBROB Metoclopramide HCl (Metoclopramide Hcl 10 Mg/2 Ml Vial) 10 mg IVPUSH Q6H PRN PRN Reason: Nausea Nicotine Polacrilex (Nicotine Polacrilex 2 Mg Gum) 2 mg BUCCAL Q1H PRN PRN Reason: nicotein Last Admin: 01/23/21 22:49 Dose: 2 mg Documented by: NAUMOC Pharmacy Consult (Consult Rx Vancomycin Dosing) 1 each MISCELLANE DAILY PRN PRN Reason: Consult order Pharmacy Consult (Consult Rx Vancomycin Dosing) 1 each MISCELLANE DAILY PRN PRN Reason: Consult order Polyethylene Glycol (Polyethylene Glycol 3350 17 Gm Powd.Pack) 17 gm PO DAILY [facility] Last Admin: 01/25/21 09:30 Dose: 17 gm Documented by: IRAM Sodium Chloride (0.9 % Sodium Chloride Flush 3 Ml Syringe) [facility] Last Admin: 01/25/21 09:31 Dose: 3 ml Documented by: IRAM Spironolactone (Spironolactone 25 Mg Tablet) 25 mg PO BID@0900,1800 [facility]; Protocol Last Admin: 01/25/21 09:31 Dose: 25 mg Documented by: IRAM Labs CBC & Chem 7: 01/24/21 04:09 01/25/21 04:00 Labs: Laboratory Results - last 24 hr 01/24/21 01/25/21 01/25/21 15:08 04:00 04:00 Anion Gap 12 Estim Creat Clear Calc 145.4 Estimated GFR > 60 Random Glucose 98 Calcium 7.9 L Total Bilirubin 2.1 H Direct Bilirubin 0.8 H AST 20 ALT 11 Alkaline Phosphatase 38 L Total Protein 6.0 L Albumin 3.6 Triglycerides 51 Vancomycin Trough 18.8 Microbiology Microbiology Results: Microbiology 01/20/21 06:33 Blood Culture - Final Blood - Venous No growth after 5 days. 01/20/21 06:33 Blood Culture - Final Blood - Venous No growth after 5 days. 01/20/21 12:30 Gram Stain - Final Ascites Fluid Anaerobic Culture - Final Body Fluid Culture - Final Methicillin Res Staph Aureus Assessment and Plan (1) Cirrhosis: Status: Acute (2) MRSA bacteremia: Status: Acute (3) Ascites: Status: Acute Assessment and Plan: 35yo M who uses injection heroin and was diagnosed with MRSA bacteremia in the ED 01/02/21 but could not be contacted to be called back admitted 01/15-01/17/21 with ascites growing MRSA [02547 WBCs, 86% PMNs] and persistent positive BCx growing MRSA but signed out AMA 01/17/21 re-admitted 01/17/21 and given naloxone for suspected heroin overdose still bacteremic 1. MRSA bacteremia - continue vancomycin, vanco trough-16.7, ?no vegetation on TTE though limited study ?Repeat blood qolzbpor62/15- neg48 hour negative. ?will need 6 wk IV vancomycin from 1st negative BCx.? ?plan? picc line when compensated liver dis lopez. 2.MRSA peritonitis- continue vancomycin 3. decompensated cirrhosis with ascites will give salt-poor ,continue albumin. ?repeat paracentesis yesteday therapeutic: around 3.1 liter. has ascitis Doppler: Showed partial occlusive thrombosis of portal vein-discussed gi-we will repeat study 1 week to see the progression-if progresses further occlusion lopez- and may need anticoagulation. on iv? furosemide + adjusted spironolactone 25 b.i.d. monitor electrolytes moniter i/o 4. HCV reinfection [viral load 274k] - will need outpt treatment at hepatology center 5. septic pulmonary emboli- due to MRSA bacteremia; not hypoxic 6.leukocytosis- likely leukemoid reaction from infection, wbc improving, Heme consult done, bcr/abl pending 7.cellulitis of feet + hands- continue vancomycin 8. L glenohumeral/bursal fluid collection- not clinically consistent with septic arthritis per Orthopedics 9. hypoNa- mild, likely due to cirrhosis 10. LUQ hematoma- per Surgery, no intervention indicated. 11. ileus versus constipation multifactorial:? ascites, MRSA infection,? pain medication. ? 1 BM overnight continue luxatives. 12. opioid use disorder- Addiction Medicine following-discussed with the added Addiction Team-hold methadone for 48 hours for now due to above ileus . Please avoid opioids use due to constipation as above, continue lidocaine patch, Tylenol, also added gabapentin for pain. ?d/w psych hold methdone for 1-2 days to see if helps with constipation. 13. moderate protein-calorie malnutrition- continue suplemeents 14. VTE ppx - UFH ?dispo- once BCx clear, needs PICC line and STR ?patient has multi multiplecomorbidities as well as chronically sick, ill appearing, decompensated liver cirrhosis, MRSA bacteremia and peritonitis-? discussed with the patient prognosis is? poor. Quality Stroke Does the patient have a stroke diagnosis?: No VTE Prior VTE?: No VTE Risk Level:: Medical - moderate - high VTE Device Contraindication: Treatment Not Indicated VTE Drug Contraindication: N/A - Med Ordered
--- NOTE | 2021-01-25 13:26 | MHC.RECOVSUP ---
Recovery Support note: This news writer met with patient to discuss withdrawal symptoms. Patient reports no withdrawal symptoms at this time. Patient reports he is feeling better overall compared to when he admitted to the hospital. Discussed discharge plan with patient and addressed questions regarding [facility] facilities. Introduced patient to Putty Maker Suhas who discussed recovery and educated patient on what recovery coaching is.
--- NOTE | 2021-01-25 15:03 | MHC.RECOVSUP ---
? Reason for consult:Support Services o?? Current location 469-1 ? o?? Identified substance use concern Heroine ? ?? Overdose ?? Withdrawal ?? Support ? Intervention: o?? Community resources provided o?? Harm reduction discussion ? Plan o?? Follow up tomorrow? o?? Patient awaiting crisis evaluation o?? Patient to follow up with [facility] after discharge ? Additional information: ?Met with Pt. Spoke about his condition and what he interested in withy his recovery. Pt. 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 Girlfriend relapsed recently and is no longer with him.Pt. is worry about his health conditions fells that there is no hope.Gave Pt. information about [facility] also recovery coaching. Will follow up with Pt. this week to find out where and how he is doing.
[2021-01-25] MEDS: vancomycin HCL 1,500 MG in 0.9 % Sodium Chloride 500 ML 333.33 MG IV (18:18)
[2021-01-25] MEDS: Nicotine Polacrilex 2 MG GUM BUCCAL (18:25)
[2021-01-26] VITALS (10 sets, daily range): BP systolic 132–143; BP diastolic 77–86; PULSE 101–113; RESP 12–20; TEMP 36.2–37.5; O2SAT 94–97
[2021-01-26] MEDS: vancomycin HCL 1,500 MG in 0.9 % Sodium Chloride 500 ML 333.33 MG IV (05:17)
[2021-01-26] MEDS: oxyCODONE HCl Immed Release 5 MG TABLET PO (05:19)
[2021-01-26 08:08] LABS: Anion Gap 12 (12-20); Blood Urea Nitrogen 13 mg/dL (9-16); Carbon Dioxide 27 mmol/L (22-29); Chloride 100 mmol/L (96-108); Creatinine Clr Calc Pharmacy 140.5; Estimated Glomerular Filt Rate > 60; Glucose Random 103 mg/dL (60-115); Potassium 3.9 mmol/L (3.3-5.1); Sodium 135 mmol/L (135-145)
--- NOTE | 2021-01-26 09:09 | P.PNGS_ITS ---
Subjective Subjective Date of Service: 01/26/21 Interval history: Patient requesting more pain medication. Reports feeling hungry but has waves of abdominal pain and distension. Reports passing lots of gas and some stool. Physical Exam Vital Signs: Vital Signs: Last Vital Signs Temp 99.5 F 01/26/21 08:00 Pulse 101 H 01/26/21 08:00 Resp 18 01/26/21 08:00 BP 132/82 01/26/21 08:00 Pulse Ox 96 01/26/21 08:00 Body Mass Index 19.2 Const: General: ill appearing and tired appearing Nutritional Appearance: thin Orientation/consciousness: patient oriented x3 Resp: Effort & Inspection: no cough, no stridor and uses accessory muscles GI: Other: Distended, tympanitic, no rebound or guarding. Hematoma abdominal wall after paracentesis. Skin: General skin exam: ecchymosis Neuro: General: patient oriented x3 Objective Data Active Medications Acetaminophen (Acetaminophen 325 Mg Tablet) 650 mg PO Q6H PRN PRN Reason: Pain, Mild (Pain Scale 1-3) Last Admin: 01/25/21 18:18 Dose: 650 mg Documented by: IRAM Docusate Sodium (Docusate Sodium 100 Mg Capsule) 100 mg PO BID [facility] Last Admin: 01/25/21 22:05 Dose: 100 mg Documented by: MARITZA Furosemide (Furosemide 20 Mg/2 Ml Vial) 20 mg IVPUSH Q12H [facility]; Protocol Last Admin: 01/25/21 22:05 Dose: 20 mg Documented by: MARITZA Gabapentin (Gabapentin 100 Mg Capsule) 100 mg PO TID [facility] Last Admin: 01/25/21 22:04 Dose: 100 mg Documented by: MARITZA Vancomycin HCl 1,500 mg/ (Sodium Chloride) 500 mls @ 333.333 mls/hr IV Q12H [facility] Last Infusion: 01/26/21 08:39 Dose: 0 mls/hr Documented by: IRAM Lidocaine (Lidocaine 4 % Patch Adh..Patch) 1 patch TRANSDERMA DAILY [facility]; Protocol Last Admin: 01/25/21 09:31 Dose: 1 patch Documented by: IRAM Melatonin (Melatonin 3 Mg Tablet) 6 mg PO BEDTIME PRN PRN Reason: Insomnia Methadone HCl (Methadone Hcl 20 Mg/2 Ml Oral.Conc) 55 mg PO DAILY [facility] Last Admin: 01/24/21 08:42 Dose: 55 mg Documented by: DOBROB Metoclopramide HCl (Metoclopramide Hcl 10 Mg/2 Ml Vial) 10 mg IVPUSH Q6H PRN PRN Reason: Nausea Nicotine Polacrilex (Nicotine Polacrilex 2 Mg Gum) 2 mg BUCCAL Q1H PRN PRN Reason: nicotein Last Admin: 01/25/21 18:25 Dose: 2 mg Documented by: IRAM Pantoprazole Sodium (Pantoprazole Sodium 40 Mg/10 Ml Vial) 40 mg IVPUSH BID@0630,1630 [facility] Pharmacy Consult (Consult Rx Vancomycin Dosing) 1 each MISCELLANE DAILY PRN PRN Reason: Consult order Pharmacy Consult (Consult Rx Vancomycin Dosing) 1 each MISCELLANE DAILY PRN PRN Reason: Consult order Polyethylene Glycol (Polyethylene Glycol 3350 17 Gm Powd.Pack) [facility] Sodium Chloride (0.9 % Sodium Chloride Flush 3 Ml Syringe) 3 ml IVFLUSH QSHIFT [facility] Last Admin: 01/26/21 00:58 Dose: Not Given Documented by: RAVEN Non-Admin Reason: Patient Refused Spironolactone (Spironolactone 25 Mg Tablet) 25 mg PO BID@0900,1800 [facility]; Protocol Last Admin: 01/25/21 18:18 Dose: 25 mg Documented by: IRAM Labs CBC & Chem 7: 01/24/21 04:09 01/26/21 07:19 Labs: Laboratory Results - last 24 hr 01/26/21 01/26/21 07:19 07:19 Anion Gap 12 Estim Creat Clear Calc Cancelled 140.5 Estimated GFR Cancelled > 60 Random Glucose 103 Calcium 8.0 L Microbiology Microbiology Results: Microbiology 01/20/21 06:33 Blood Culture - Final Blood - Venous No growth after 5 days. 01/20/21 06:33 Blood Culture - Final Blood - Venous No growth after 5 days. Procedures Date of Service Date of Service: 01/26/21 Progress Note: A&P Assessment and plan (1) Paralytic ileus: Status: Acute (2) SBP (spontaneous bacterial peritonitis): Status: Acute (3) Ascites: Status: Acute (4) Bacteremia: Status: Acute Assessment and Plan: 35-year-old male active IVDA admitted to the hospital for cellulitis found to humphries ve MRSA bacteremia with subsequent septic pulmonary emboli, decompensated liver cirrhosis, ascites and SBP requiring paracentesis and left upper quadrant hematoma. He developed worsening abd pain and distention. CT scan abd/pelvis and KUB were performed which demonstrated dilated loops of small bowel and distended right/proximal transverse colon with tapering without evidence of obstruction. Constipation also noted. Likely with segmental SB/colonic ileus which is probably multifactorial in etiology including narcotics and ascites/peritonitis. Ascites culture positive for MRSA. Probable source of abdominal pain. Diet as tolerated Fall Risk Details Current Medications: Current Medications Acetaminophen (Acetaminophen 325 Mg Tablet) 650 mg PO Q6H PRN PRN Reason: Pain, Mild (Pain Scale 1-3) Last Admin: 01/25/21 18:18 Dose: 650 mg Documented by: Docusate Sodium (Docusate Sodium 100 Mg Capsule) 100 mg PO BID [facility] Last Admin: 01/25/21 22:05 Dose: 100 mg Documented by: Furosemide (Furosemide 20 Mg/2 Ml Vial) 20 mg IVPUSH Q12H [facility]; Protocol Last Admin: 01/25/21 22:05 Dose: 20 mg Documented by: Gabapentin (Gabapentin 100 Mg Capsule) 100 mg PO TID [facility] Last Admin: 01/25/21 22:04 Dose: 100 mg Documented by: Vancomycin HCl 1,500 mg/ (Sodium Chloride) 500 mls @ 333.333 mls/hr IV Q12H [facility] Last Infusion: 01/26/21 08:39 Dose: Infused Documented by: Lidocaine (Lidocaine 4 % Patch Adh..Patch) 1 patch TRANSDERMA DAILY [facility]; Protocol Last Admin: 01/25/21 09:31 Dose: 1 patch Documented by: Melatonin (Melatonin 3 Mg Tablet) 6 mg PO BEDTIME PRN PRN Reason: Insomnia Methadone HCl (Methadone Hcl 20 Mg/2 Ml Oral.Conc) 55 mg PO DAILY [facility] Last Admin: 01/24/21 08:42 Dose: 55 mg Documented by: Metoclopramide HCl (Metoclopramide Hcl 10 Mg/2 Ml Vial) 10 mg IVPUSH Q6H PRN PRN Reason: Nausea Nicotine Polacrilex (Nicotine Polacrilex 2 Mg Gum) 2 mg BUCCAL Q1H PRN PRN Reason: nicotein Last Admin: 01/25/21 18:25 Dose: 2 mg Documented by: Pantoprazole Sodium (Pantoprazole Sodium 40 Mg/10 Ml Vial) 40 mg IVPUSH BID@0630,1630 [facility] Pharmacy Consult (Consult Rx Vancomycin Dosing) 1 each MISCELLANE DAILY PRN PRN Reason: Consult order Pharmacy Consult (Consult Rx Vancomycin Dosing) 1 each MISCELLANE DAILY PRN PRN Reason: Consult order Polyethylene Glycol (Polyethylene Glycol 3350 17 Gm Powd.Pack) [facility] Sodium Chloride (0.9 % Sodium Chloride Flush 3 Ml Syringe) 3 ml IVFLUSH QSHIFT [facility] Last Admin: 01/26/21 00:58 Dose: Not Given Documented by: Spironolactone (Spironolactone 25 Mg Tablet) 25 mg PO BID@0900,1800 [facility]; Protocol Last Admin: 01/25/21 18:18 Dose: 25 mg Documented by: Time Spent With Patient Time: Total time spent is greater than 50% in coordination of care (as documented) at patient's floor/unit and/or counseling patient: Time with patient: 15 - 24 minutes Quality Stroke Does the patient have a stroke diagnosis?: No VTE Prior VTE?: No VTE Risk Level:: Medical - moderate - high VTE Device Contraindication: Treatment Not Indicated VTE Drug Contraindication: N/A - Med Ordered
[2021-01-26] MEDS: Morphine Sulfate 2 MG/ML CARTRIDGE IVPUSH ×2 (10:48→12:17)
[2021-01-26] MEDS: Furosemide 20 MG/2 ML VIAL IVPUSH ×2 (10:49→19:43)
[2021-01-26] MEDS: Pantoprazole Sodium 40 MG/10 ML VIAL IVPUSH ×2 (10:49→17:51)
[2021-01-26] MEDS: Gabapentin 100 MG CAPSULE PO ×3 (10:54→19:44)
[2021-01-26] MEDS: Lidocaine 4 % Patch ADH..PATCH 1 PATCH TRANSDERMA (10:54)
[2021-01-26] MEDS: 0.9 % Sodium Chloride Flush 3 ML SYRINGE IVFLUSH ×3 (10:57→19:44)
--- NOTE | 2021-01-26 11:17 | PC.NURSE ---
Addendum entered by Kajal Vazquez RN 01/26/21 11:24: correction: *IVP morphine was ordered and administered* Original Note: This AM, patient states that he is in a lot of pain. ABD is 10/10 pain. He has not been receiving his methadone or any narcotics d/t concern for ileus. Patient has become very irritable and anxious, stating that I'm on my bed and they are not treating my pain the way they should. MD is aware that patient is in a lot of pain and 1x order of IVP 2mg morphine was ordered and in. Emotional support and patient education provided regarding health status. Patient refused his Miralax and Colace this morning, stating that he doesn't want it. KUB was repeated this morning. Last BM was yesterday during day shift.
--- NOTE | 2021-01-26 11:56 | P.PNIM_ITS ---
Subjective Subjective Date of Service: 01/26/21 Interval History: Cirrhosis, ascites, ileus Review of Systems Patient still has abdominal pain on and off, passed big bm today Denies any nausea or vomiting feels hungry Did not feel any anxious Denies any fever chills any cough or phlegm Physical Exam Vital Signs: Vital Signs: Last Vital Signs Temp 97.8 F 01/26/21 10:45 Pulse 104 H 01/26/21 10:45 Resp 20 01/26/21 10:45 BP 143/77 H 01/26/21 10:45 Pulse Ox 96 01/26/21 10:45 Body Mass Index 19.2 Gen:? ill apearing, chronically? sick . HEENT: moist mucus membranes. anicteric Neck: supple Lungs: clear to auscultation bilaterally Heart: regular rate and rhythm, no murmurs Abd: still mild distended -slightly better than yesterday , globular , no rebound or guarding , bm present. pasing gases/bm largex1 Ext: no edema Skin: no erythema or swelling Neuro: AOx3, no asterixis elicited Psych: appropriate affect Objective Data Active Medications Acetaminophen (Acetaminophen 325 Mg Tablet) 650 mg PO Q6H PRN PRN Reason: Pain, Mild (Pain Scale 1-3) Last Admin: 01/25/21 18:18 Dose: 650 mg Documented by: IRAM Docusate Sodium (Docusate Sodium 100 Mg Capsule) 100 mg PO BID [facility] Last Admin: 01/25/21 22:05 Dose: 100 mg Documented by: MARITZA Furosemide (Furosemide 20 Mg/2 Ml Vial) 20 mg IVPUSH Q12H [facility]; Protocol Last Admin: 01/26/21 10:49 Dose: 20 mg Documented by: IRAM Gabapentin (Gabapentin 100 Mg Capsule) 100 mg PO TID [facility] Last Admin: 01/26/21 10:54 Dose: 100 mg Documented by: IRAM Daptomycin 470 mg/ Sodium (Chloride) 59.4 mls @ 100 mls/hr IV Q24H [facility] Lidocaine (Lidocaine 4 % Patch Adh..Patch) 1 patch TRANSDERMA DAILY [facility]; Protocol Last Admin: 01/26/21 10:54 Dose: 1 patch Documented by: IRAM Melatonin (Melatonin 3 Mg Tablet) 6 mg PO BEDTIME PRN PRN Reason: Insomnia Methadone HCl (Methadone Hcl 20 Mg/2 Ml Oral.Conc) 55 mg PO DAILY [facility] Last Admin: 01/24/21 08:42 Dose: 55 mg Documented by: DOBROB Metoclopramide HCl (Metoclopramide Hcl 10 Mg/2 Ml Vial) 10 mg IVPUSH Q6H PRN PRN Reason: Nausea Nicotine Polacrilex (Nicotine Polacrilex 2 Mg Gum) 2 mg BUCCAL Q1H PRN PRN Reason: nicotein Last Admin: 01/25/21 18:25 Dose: 2 mg Documented by: IRAM Pantoprazole Sodium (Pantoprazole Sodium 40 Mg/10 Ml Vial) 40 mg IVPUSH BID@0630,1630 [facility] Last Admin: 01/26/21 10:49 Dose: 40 mg Documented by: IRAM Pharmacy Consult (Consult Rx Vancomycin Dosing) 1 each MISCELLANE DAILY PRN PRN Reason: Consult order Pharmacy Consult (Consult Rx Vancomycin Dosing) 1 each MISCELLANE DAILY PRN PRN Reason: Consult order Polyethylene Glycol (Polyethylene Glycol 3350 17 Gm Powd.Pack) [facility] Sodium Chloride (0.9 % Sodium Chloride Flush 3 Ml Syringe) 3 ml IVFLUSH QSHIFT [facility] Last Admin: 01/26/21 10:57 Dose: 3 ml Documented by: IRAM Spironolactone (Spironolactone 25 Mg Tablet) 25 mg PO BID@0900,1800 [facility]; Protocol Last Admin: 01/25/21 18:18 Dose: 25 mg Documented by: IRAM Labs CBC & Chem 7: 01/24/21 04:09 01/26/21 07:19 Labs: Laboratory Results - last 24 hr 01/26/21 01/26/21 07:19 07:19 Anion Gap 12 Estim Creat Clear Calc Cancelled 140.5 Estimated GFR Cancelled > 60 Random Glucose 103 Calcium 8.0 L Magnesium 2.0 Microbiology Microbiology Results: Microbiology 01/20/21 06:33 Blood Culture - Final Blood - Venous No growth after 5 days. 01/20/21 06:33 Blood Culture - Final Blood - Venous No growth after 5 days. Assessment and Plan (1) MRSA bacteremia: Status: Acute Assessment and Plan: 35yo M who uses injection heroin and was diagnosed with MRSA bacteremia in the ED 01/02/21 but could not be contacted to be called back admitted 01/15-01/17/21 with ascites growing MRSA [25366 WBCs, 86% PMNs] and persistent positive BCx growing MRSA but signed out AMA 01/17/21 re-admitted 01/17/21 and given naloxone for suspected heroin overdose still bacteremic 1. MRSA bacteremia - continue vancomycin, vanco trough-18.8, ?no vegetation on TTE though limited study ?Repeat blood /15- neg48 hour negative. ?on daptomycin now since still has mrsa in ascitic fluid. ?plan? picc line when compensated liver dis lopez. 2.MRSA peritonitis-on daptomycin. 3. decompensated cirrhosis with ascites will give salt-poor ,continue albumin. ?repeat paracentesis yesteday therapeutic x3 in last 7 days -total fluid removed (7+2+3:12liter). has ascitis Doppler: Showed partial occlusive thrombosis of portal vein-discussed gi-we will repeat study 1 week to see the progression-if progresses further occlusion lopez- and may need anticoagulation. on iv? furosemide + adjusted spironolactone 25 b.i.d. monitor electrolytes, albumin added. moniter i/o 4. HCV reinfection [viral load 274k]- will need outpt treatment at hepatology center 5. septic pulmonary emboli- due to MRSA bacteremia; not hypoxic 6.leukocytosis- likely leukemoid reaction from infection, wbc improving, Heme consult done, bcr/abl pending 7.cellulitis of feet + hands- continue vancomycin 8. L glenohumeral/bursal fluid collection- not clinically consistent with septic arthritis per Orthopedics 9. hypoNa- mild, likely due to cirrhosis 10. LUQ hematoma- per Surgery, no intervention indicated. 11. ileus versus constipation multifactorial:? ascites, MRSA infection,? pain medication. ? seems improving ,still has pain,1 BM today continue luxatives. also patient asking for diet , will add regular diet 12. opioid use disorder- Addiction Medicine following-discussed with the added Addiction Team-hold methadone for 48 hours for now due to above ileus . Please avoid opioids use due to constipation as above, continue lidocaine patch, Tylenol, also added gabapentin for pain, KUB shows some improvement today Discussed with surgery me use small does morphine for pain control since patient is producing bowels and his KUB is also improving. ?d/w psych hold methdone for 2 days to see if helps with constipation. 13. moderate protein-calorie malnutrition- continue suplemeents 14. VTE ppx - UFH ?dispo- once BCx clear, needs PICC line and STR Quality Stroke Does the patient have a stroke diagnosis?: No VTE Prior VTE?: No VTE Risk Level:: Medical - moderate - high VTE Device Contraindication: Treatment Not Indicated VTE Drug Contraindication: N/A - Med Ordered
[2021-01-26] MEDS: SODIUM CHLORIDE 0.9% IV (12:17)
[2021-01-26] MEDS: DAPTOMYCIN IV (12:17)
--- NOTE | 2021-01-26 14:04 | MHC.RECOVSUP ---
Recovery Support note: This copy writer met with patient for emotional support and to discuss withdrawal symptoms. Patient reports significant pain and that he is having a bad day due to this. Patient understands why the pain medication and methadone was stopped. Patient denies withdrawal symptoms at this time. This copy writer reassured patient that hospital staff are doing what we can to keep him comfortable and encouraged patient to reach out to staff if he needs anything. Patient acknowledged. Patient reports a desire to rest at this time. This copy writer will return later today to see if patient would like to meet with another Wine Blender for support. Discussed case with patient's RN and Megan DUARTE.
[2021-01-26] MEDS: Nicotine Polacrilex 2 MG GUM BUCCAL ×2 (14:17→20:02)
[2021-01-26] MEDS: Docusate Sodium 100 MG CAPSULE PO (14:17)
[2021-01-26] MEDS: Albumin Human 25 % 100 ML IV ×3 (14:21→23:25)
[2021-01-26] MEDS: methADONE HCl 20 MG/2 ML ORAL.CONC PO (14:38)
[2021-01-26 15:20] LABS: Vancomycin Trough 19.8 mcg/mL (10.0-20.0)
--- NOTE | 2021-01-26 16:32 | MHC.CARE ---
RN called and reported that patient was in emotional distress today, due to his illness and level of pain, supportive contact would be helpful. CARE cruise staff member went to [facility], the door to patient's room was shut and his nurse explained that patient had been up all night, was unable to sleep due to his pain but has been medicated and soundly asleep at this time. Recovery Team will connect with patient between 5:00-5:15pm. Call CARE Team as needed if patient is in need of additional support.
[2021-01-26] MEDS: Spironolactone 25 MG TABLET PO (17:52)
[2021-01-26] MEDS: Acetaminophen 325 MG TABLET 650 MG PO (17:52)
[2021-01-26] MEDS: Morphine Sulfate 4 MG/ML CARTRIDGE IVPUSH (19:43)
[2021-01-26] MEDS: Potassium Chloride Packet 20 MEQ PACKET PO (20:02)
[2021-01-27] MEDS: Albumin Human 25 % 100 ML IV (05:54)
[2021-01-27] MEDS: Pantoprazole Sodium 40 MG/10 ML VIAL IVPUSH ×2 (05:54→18:07)
[2021-01-27 07:16] LABS: Hematocrit 31.4 % (42.0-52.0); Hemoglobin 10.3 g/dl (14.0-18.0); Mean Corpuscular HGB Conc 32.8 g/dl (31.0-36.0); Mean Corpuscular Hemoglobin 29.3 pg (27.0-33.0); Mean Corpuscular Volume 89.2 fL (80.0-98.0); Mean Platelet Volume 8.8 fL (9.4-12.4); Platelet Count 100 X10*3/uL (160-400); Red Blood Count 3.52 X10*6/uL (4.60-5.80); Red Cell Distribution Width 16.7 % (11.0-16.0); White Blood Count 12.8 X10*3/uL (4.8-10.8)
[2021-01-27 07:40] LABS: Creatinine Clr Calc Pharmacy 142.9; Estimated Glomerular Filt Rate > 60
[2021-01-27 07:45] LABS: Anion Gap 13 (12-20); Blood Urea Nitrogen 16 mg/dL (9-16); Calcium 8.5 mg/dL (8.4-10.2); Carbon Dioxide 29 mmol/L (22-29); Chloride 98 mmol/L (96-108); Creatinine Clr Calc Pharmacy 140.5; Estimated Glomerular Filt Rate > 60; Glucose Random 99 mg/dL (60-115); Potassium 3.9 mmol/L (3.3-5.1); Sodium 136 mmol/L (135-145)
[2021-01-27 07:49] VITALS: BP 145/89; PULSE 98; RESP 16; O2SAT 94
[2021-01-27 08:04] VITALS: BP 145/89; PULSE 98
[2021-01-27] MEDS: Spironolactone 25 MG TABLET PO ×2 (08:04→18:07)
[2021-01-27] MEDS: Gabapentin 100 MG CAPSULE PO ×3 (08:04→21:07)
[2021-01-27] MEDS: Lidocaine 4 % Patch ADH..PATCH 1 PATCH TRANSDERMA (08:04)
[2021-01-27] MEDS: Albuterol/Iprat 2.5/0.5MG 3 ML AMPUL.NEB INHALE (08:04)
[2021-01-27] MEDS: 0.9 % Sodium Chloride Flush 3 ML SYRINGE IVFLUSH ×2 (08:06→18:07)
[2021-01-27] MEDS: Furosemide 20 MG/2 ML VIAL IVPUSH ×2 (08:06→21:07)
--- NOTE | 2021-01-27 10:59 | HO.PM.IMPN ---
Subjective Subjective Date of Service: 01/27/21 Interval History: mrsa bacteremia , mrsa ascitis Review of Systems abd pain and distension somewhat improving Denies any fever chills or nausea vomiting, feels angry, said he is also tolerating fluids today Denies any cough or phlegm. Physical Exam Vital Signs: Vital Signs: Last Vital Signs Temp 97.2 F 01/26/21 23:21 Pulse 98 01/27/21 08:04 Resp 16 01/27/21 07:49 BP 145/89 H 01/27/21 08:04 Pulse Ox 94 01/27/21 07:49 Body Mass Index 19.2 Gen:? ill apearing, chronically? sick . HEENT: moist mucus membranes. anicteric Neck: supple Lungs: clear to auscultation bilaterally Heart: regular rate and rhythm, no murmurs Abd: mild distension -seems improving , more soft abd than yesterday still globular , no rebound or guarding , bm present. pasing gases/bm -last bm overnight large. Ext: no edema Skin: no erythema or swelling Neuro: AOx3, no asterixis elicited Psych: appropriate affect Objective Data Active Medications Acetaminophen (Acetaminophen 325 Mg Tablet) 650 mg PO Q6H PRN PRN Reason: Pain, Mild (Pain Scale 1-3) Last Admin: 01/26/21 17:52 Dose: 650 mg Documented by: IRAM Docusate Sodium (Docusate Sodium 100 Mg Capsule) 100 mg PO BID [facility] Last Admin: 01/27/21 08:08 Dose: Not Given Documented by: SIMON Non-Admin Reason: Patient Refused Furosemide (Furosemide 20 Mg/2 Ml Vial) 20 mg IVPUSH Q12H [facility]; Protocol Last Admin: 01/27/21 08:06 Dose: 20 mg Documented by: SIMON Gabapentin (Gabapentin 100 Mg Capsule) 100 mg PO TID [facility] Last Admin: 01/27/21 08:04 Dose: 100 mg Documented by: SIMON Daptomycin 470 mg/ Sodium (Chloride) 59.4 mls @ 100 mls/hr IV Q24H [facility] Last Infusion: 01/26/21 14:29 Dose: 0 mls/hr Documented by: IRAM Lidocaine (Lidocaine 4 % Patch Adh..Patch) 1 patch TRANSDERMA DAILY [facility]; Protocol Last Admin: 01/27/21 08:04 Dose: 1 patch Documented by: SIMON Melatonin (Melatonin 3 Mg Tablet) 6 mg PO BEDTIME PRN PRN Reason: Insomnia Methadone HCl (Methadone Hcl 20 Mg/2 Ml Oral.Conc) 55 mg PO DAILY [facility] Last Admin: 01/24/21 08:42 Dose: 55 mg Documented by: DOBROB Metoclopramide HCl (Metoclopramide Hcl 10 Mg/2 Ml Vial) 10 mg IVPUSH Q6H PRN PRN Reason: Nausea Nicotine Polacrilex (Nicotine Polacrilex 2 Mg Gum) 2 mg BUCCAL Q1H PRN PRN Reason: nicotein Last Admin: 01/26/21 20:02 Dose: 2 mg Documented by: SARAHY Pantoprazole Sodium (Pantoprazole Sodium 40 Mg/10 Ml Vial) 40 mg IVPUSH BID@0630,1630 [facility] Last Admin: 01/27/21 05:54 Dose: 40 mg Documented by: SARAHY Pharmacy Consult (Consult Rx Vancomycin Dosing) 1 each MISCELLANE DAILY PRN PRN Reason: Consult order Pharmacy Consult (Consult Rx Vancomycin Dosing) 1 each MISCELLANE DAILY PRN PRN Reason: Consult order Polyethylene Glycol (Polyethylene Glycol 3350 17 Gm Powd.Pack) 17 gm PO BIDPC [facility] Last Admin: 01/27/21 08:07 Dose: Not Given Documented by: SIMON Non-Admin Reason: Patient Refused Sodium Chloride (0.9 % Sodium Chloride Flush 3 Ml Syringe) 3 ml IVFLUSH QSHIFT [facility] Last Admin: 01/27/21 08:06 Dose: 3 ml Documented by: SIMON Spironolactone (Spironolactone 25 Mg Tablet) 25 mg PO BID@0900,1800 [facility]; Protocol Last Admin: 01/27/21 08:04 Dose: 25 mg Documented by: SIMON Labs CBC & Chem 7: 01/27/21 06:39 01/27/21 06:39 Labs: Laboratory Results - last 24 hr 01/26/21 01/27/21 01/27/21 14:54 06:39 06:39 MCV 89.2 MCH 29.3 MCHC 32.8 RDW 16.7 H Plt Count 100 L MPV 8.8 L Absolute Nucleated RBC 0.000 Nucleated RBC % (auto) 0.0 Anion Gap 13 Estim Creat Clear Calc 140.5 Estimated GFR > 60 Random Glucose 99 Calcium 8.5 D Vancomycin Trough 19.8 01/27/21 06:39 MCV MCH MCHC RDW Plt Count MPV Absolute Nucleated RBC Nucleated RBC % (auto) Anion Gap Estim Creat Clear Calc 142.9 Estimated GFR > 60 Random Glucose Calcium Vancomycin Trough Assessment and Plan (1) Cirrhosis: Status: Acute (2) MRSA bacteremia: Status: Acute (3) Abdominal pain: Status: Acute Assessment and Plan: 35yo M who uses injection heroin and was diagnosed with MRSA bacteremia in the ED 01/02/21 but could not be contacted to be called back admitted 01/15-01/17/21 with ascites growing MRSA [[id number] WBCs, 86% PMNs] and persistent positive BCx growing MRSA but signed out AMA 01/17/21 re-admitted 01/17/21 and given naloxone for suspected heroin overdose still bacteremic 1. MRSA bacteremia started on daptomycin 01/26for better coverage for abd mrsa , off vanco since yesterday ?no vegetation on TTE though limited study ?Repeat blood [id number] hour negative. ?on daptomycin now since still has mrsa in ascitic fluid. ?plan? picc line when compensated liver dis lopez ans Enriqueta lopez. Id FU 2.MRSA peritonitis-on daptomycin day2. 3. decompensated cirrhosis with ascites will give salt-poor ,continue albumin. ? paracentesis therapeutic x3 in last week-total fluid removed (7+2+3:12liter). has ascitis Doppler: Showed partial occlusive thrombosis of portal vein-discussed gi, will repeat US in 2 days-if progresses further occlusion? on iv? furosemide + adjusted spironolactone 25 b.i.d. monitor electrolytes, albumin added. moniter i/o GI follow up 4. HCV reinfection [viral load 274k]- will need outpt treatment at hepatology center 5. septic pulmonary emboli- due to MRSA bacteremia; not hypoxic 6.leukocytosis- likely leukemoid reaction from infection, wbc improving, Heme consult done, bcr/abl pending 7.cellulitis of feet + hands- continue vancomycin 8. L glenohumeral/bursal fluid collection- not clinically consistent with septic arthritis per Orthopedics 9. hypoNa- mild, likely due to cirrhosis 10. LUQ hematoma- per Surgery, no intervention indicated. 11. ileus versus constipation multifactorial:? ascites, MRSA infection,? pain medication. ? seems improving ,still has pain,1 BM lasrge overnight kub repeated yesterday-mild improving continue luxatives. tolerating regular diet 12. opioid use disorder- Addiction Medicine following-discussed with the added Addiction Team-hold methadone for 48 hours for now due to above ileus . Please avoid opioids use due to constipation as above, continue lidocaine patch, Tylenol, also added gabapentin for pain, KUB shows some improvement yesterday started back on regular methadone 13. moderate protein-calorie malnutrition- continue suplemeents 14. VTE ppx - UFH ?dispo- once BCx clear, needs PICC line and STR Quality Stroke Does the patient have a stroke diagnosis?: No VTE Prior VTE?: No VTE Risk Level:: Medical - moderate - high VTE Device Contraindication: Treatment Not Indicated VTE Drug Contraindication: N/A - Med Ordered
[2021-01-27] MEDS: methADONE HCl 20 MG/2 ML ORAL.CONC 55 MG PO (11:30)
[2021-01-27] MEDS: SODIUM CHLORIDE 0.9% IV (11:31)
[2021-01-27] MEDS: DAPTOMYCIN IV (11:31)
[2021-01-27 11:32] VITALS: BP 154/96; PULSE 102; RESP 18; TEMP 37.3; O2SAT 95
--- NOTE | 2021-01-27 11:41 | MHC.CLN ---
Addendum entered by Alice Syed, TIFFANIE 01/27/21 13:32: AGREE WITH PROVIDER'S ASSESSMENT BELOW Original Note: F/U PT IS NOW ON REGULAR DIET PO INTAKE CONSISTENT DOCUMENTED 50-75% RECOMMEND RESTARTING ENSURE PLUS SUPPLEMENT BID TO PROVIDE EXTRA CALORIES SUPPLEMENT PROVIDES 700 KCALS AND 32 GRAMS PROTEIN CONTINUE TO MONITOR PO INTAKE CLOSELY
--- NOTE | 2021-01-27 13:30 | PM.PNGS ---
Subjective Subjective Date of Service: 01/27/21 Interval history: States has been passing good amount of flatus and bowel movements Still has ascites asking about paracentesis Says he still needs pain medications because of ascites Physical Exam Vital Signs: Vital Signs: Last Vital Signs Temp 99.2 F 01/27/21 11:32 Pulse 102 H 01/27/21 11:32 Resp 18 01/27/21 11:32 BP 154/96 H 01/27/21 11:32 Pulse Ox 95 01/27/21 11:32 Body Mass Index 19.2 Const: Other: Frail looking, cachectic Resp: Effort & Inspection: normal respiratory effort Cardio: Rhythm: regular rhythm GI: Other: Large amount of ascites, soft, with tenderness Objective Data Active Medications Acetaminophen (Acetaminophen 325 Mg Tablet) 650 mg PO Q6H PRN PRN Reason: Pain, Mild (Pain Scale 1-3) Last Admin: 01/26/21 17:52 Dose: 650 mg Documented by: IRAM Docusate Sodium (Docusate Sodium 100 Mg Capsule) 100 mg PO BID [facility] Last Admin: 01/27/21 08:08 Dose: Not Given Documented by: SIMON Non-Admin Reason: Patient Refused Furosemide (Furosemide 20 Mg/2 Ml Vial) 20 mg IVPUSH Q12H [facility]; Protocol Last Admin: 01/27/21 08:06 Dose: 20 mg Documented by: SIMON Gabapentin (Gabapentin 100 Mg Capsule) 100 mg PO TID [facility] Last Admin: 01/27/21 08:04 Dose: 100 mg Documented by: SIMON Daptomycin 470 mg/ Sodium (Chloride) 59.4 mls @ 100 mls/hr IV Q24H [facility] Last Infusion: 01/27/21 12:28 Dose: 0 mls/hr Documented by: SIMON Lidocaine (Lidocaine 4 % Patch Adh..Patch) 1 patch TRANSDERMA DAILY [facility]; Protocol Last Admin: 01/27/21 08:04 Dose: 1 patch Documented by: SIMON Melatonin (Melatonin 3 Mg Tablet) 6 mg PO BEDTIME PRN PRN Reason: Insomnia Methadone HCl (Methadone Hcl 20 Mg/2 Ml Oral.Conc) 55 mg PO DAILY [facility] Last Admin: 01/27/21 11:30 Dose: 55 mg Documented by: SIMON Metoclopramide HCl (Metoclopramide Hcl 10 Mg/2 Ml Vial) 10 mg IVPUSH Q6H PRN PRN Reason: Nausea Nicotine Polacrilex (Nicotine Polacrilex 2 Mg Gum) 2 mg BUCCAL Q1H PRN PRN Reason: nicotein Last Admin: 01/26/21 20:02 Dose: 2 mg Documented by: SARAHY Pantoprazole Sodium (Pantoprazole Sodium 40 Mg/10 Ml Vial) 40 mg IVPUSH BID@0630,1630 [facility] Last Admin: 01/27/21 05:54 Dose: 40 mg Documented by: SARAHY Pharmacy Consult (Consult Rx Vancomycin Dosing) 1 each MISCELLANE DAILY PRN PRN Reason: Consult order Pharmacy Consult (Consult Rx Vancomycin Dosing) 1 each MISCELLANE DAILY PRN PRN Reason: Consult order Polyethylene Glycol (Polyethylene Glycol 3350 17 Gm Powd.Pack) 17 gm PO BIDPC [facility] Last Admin: 01/27/21 08:07 Dose: Not Given Documented by: SIMON Non-Admin Reason: Patient Refused Sodium Chloride (0.9 % Sodium Chloride Flush 3 Ml Syringe) [facility] Admin: 01/27/21 08:06 Dose: 3 ml Documented by: SIMON Spironolactone (Spironolactone 25 Mg Tablet) 25 mg PO BID@0900,1800 [facility]; Protocol Last Admin: 01/27/21 08:04 Dose: 25 mg Documented by: SIMON Labs CBC & Chem 7: 01/27/21 06:39 01/27/21 06:39 Labs: Laboratory Results - last 24 hr 01/26/21 01/27/21 01/27/21 14:54 06:39 06:39 MCV 89.2 MCH 29.3 MCHC 32.8 RDW 16.7 H Plt Count 100 L MPV 8.8 L Absolute Nucleated RBC 0.000 Nucleated RBC % (auto) 0.0 Anion Gap 13 Estim Creat Clear Calc 140.5 Estimated GFR > 60 Random Glucose 99 Calcium 8.5 D Vancomycin Trough 19.8 01/27/21 06:39 MCV MCH MCHC RDW Plt Count MPV Absolute Nucleated RBC Nucleated RBC % (auto) Anion Gap Estim Creat Clear Calc 142.9 Estimated GFR > 60 Random Glucose Calcium Vancomycin Trough Procedures Date of Service Date of Service: 01/27/21 Progress Note: A&P Assessment and plan (1) Ascites: Status: Acute Assessment and Plan: Pain likely from ascites He been passing flatus and has had BMs consistently Consider repeat paracentesis Pain management Diet as tolerated Fall Risk Details Current Medications: Current Medications Acetaminophen (Acetaminophen 325 Mg Tablet) 650 mg PO Q6H PRN PRN Reason: Pain, Mild (Pain Scale 1-3) Last Admin: 01/26/21 17:52 Dose: 650 mg Documented by: Docusate Sodium (Docusate Sodium 100 Mg Capsule) 100 mg PO BID [facility] Last Admin: 01/27/21 08:08 Dose: Not Given Documented by: Furosemide (Furosemide 20 Mg/2 Ml Vial) 20 mg IVPUSH Q12H [facility]; Protocol Last Admin: 01/27/21 08:06 Dose: 20 mg Documented by: Gabapentin (Gabapentin 100 Mg Capsule) 100 mg PO TID [facility] Last Admin: 01/27/21 08:04 Dose: 100 mg Documented by: Daptomycin 470 mg/ Sodium (Chloride) 59.4 mls @ 100 mls/hr IV Q24H [facility] Last Infusion: 01/27/21 12:28 Dose: Infused Documented by: Lidocaine (Lidocaine 4 % Patch Adh..Patch) 1 patch TRANSDERMA DAILY [facility]; Protocol Last Admin: 01/27/21 08:04 Dose: 1 patch Documented by: Melatonin (Melatonin 3 Mg Tablet) 6 mg PO BEDTIME PRN PRN Reason: Insomnia Methadone HCl (Methadone Hcl 20 Mg/2 Ml Oral.Conc) 55 mg PO DAILY [facility] Last Admin: 01/27/21 11:30 Dose: 55 mg Documented by: Metoclopramide HCl (Metoclopramide Hcl 10 Mg/2 Ml Vial) 10 mg IVPUSH Q6H PRN PRN Reason: Nausea Nicotine Polacrilex (Nicotine Polacrilex 2 Mg Gum) 2 mg BUCCAL Q1H PRN PRN Reason: nicotein Last Admin: 01/26/21 20:02 Dose: 2 mg Documented by: Pantoprazole Sodium (Pantoprazole Sodium 40 Mg/10 Ml Vial) 40 mg IVPUSH BID@0630,1630 [facility] Last Admin: 01/27/21 05:54 Dose: 40 mg Documented by: Pharmacy Consult (Consult Rx Vancomycin Dosing) 1 each MISCELLANE DAILY PRN PRN Reason: Consult order Pharmacy Consult (Consult Rx Vancomycin Dosing) 1 each MISCELLANE DAILY PRN PRN Reason: Consult order Polyethylene Glycol (Polyethylene Glycol 3350 17 Gm Powd.Pack) 17 gm PO BIDPC [facility] Last Admin: 01/27/21 08:07 Dose: Not Given Documented by: Sodium Chloride (0.9 % Sodium Chloride Flush 3 Ml Syringe) [facility] Last Admin: 01/27/21 08:06 Dose: 3 ml Documented by: Spironolactone (Spironolactone 25 Mg Tablet) 25 mg PO BID@0900,1800 [facility]; Protocol Last Admin: 01/27/21 08:04 Dose: 25 mg Documented by: Time Spent With Patient Time: Total time spent is greater than 50% in coordination of care (as documented) at patient's floor/unit and/or counseling patient: Time with patient: 15 - 24 minutes Quality Stroke Does the patient have a stroke diagnosis?: No VTE Prior VTE?: No VTE Risk Level:: Medical - moderate - high VTE Device Contraindication: Treatment Not Indicated VTE Drug Contraindication: N/A - Med Ordered
--- NOTE | 2021-01-27 15:00 | MHC.RECOVRN ---
Met with pt to f/u after receiving full methadone dose this morning. Pt reports feeling much better and reports minimal pain. Pt is in good spirits and looking forward to friend, German, bringing in dinner this evening. Will continue to follow.
[2021-01-27 15:37] VITALS: BP 135/83; PULSE 105; RESP 18; TEMP 36.9; O2SAT 94
--- NOTE | 2021-01-27 18:28 | P.PNADD_ITS ---
Subjective Subjective Date of Service: 01/27/21 Reason For Visit: Bacteremia Interim History: Methadone held on Thursday 01/25 and decreased dose given yesterday 01/26 due to concern of illeus. Patient has since had BM. Tearful this morning when seen by this news writer and RSRN. Citing challenging weekend, worsening pain, and not feeling heard as major concerns. Review of Systems Acute medical concerns: Yes Medical Review of Systems: unchanged Mental Status Exam Mental Status Exam Patient Appearance: Appropriate (hosptial attire, very thin) Patient Orientation: Person, Place, Time and Situation Level of Consciousness: Awake, Appropriate and Alert Patient Behavior: Appropriate Mood Description: Appropriate and Sad Affect Description: Appropriate and Sad Patient Cognition Impaired: No Ability to Follow Directions: Excellent Thought Process: Goal Oriented Thought Content: positive for Goal Oriented Judgement: Good Diagnostics Vital Signs (24Hr): Vital Signs - 24 hr 01/26/21 19:28 01/26/21 19:43 01/26/21 23:21 Temperature 99.4 F 97.2 F Pulse Rate 113 H 104 H Respiratory Rate 18 18 18 Blood Pressure 136/80 137/80 Pulse Oximetry 97 94 01/27/21 07:49 01/27/21 08:04 01/27/21 11:32 Temperature 99.2 F Pulse Rate 98 98 102 H Respiratory Rate 16 18 Blood Pressure 145/89 H 145/89 H 154/96 H Pulse Oximetry 94 95 01/27/21 15:37 Temperature 98.5 F Pulse Rate 105 H Respiratory Rate 18 Blood Pressure 135/83 Pulse Oximetry 94 Body Mass Index 19.2 Labs Results: 01/27/21 06:39 01/27/21 06:39 Labs: Laboratory Results - last 48 hr 01/20/21 01/26/21 01/26/21 06:33 07:19 07:19 WBC RBC Hgb Hct MCV MCH MCHC RDW Plt Count MPV Absolute Nucleated RBC Nucleated RBC % (auto) Sodium 135 Potassium 3.9 Chloride 100 Carbon Dioxide 27 Anion Gap 12 BUN 13 Creatinine Cancelled 0.60 Estim Creat Clear Calc Cancelled 140.5 Estimated GFR Cancelled > 60 Random Glucose 103 Calcium 8.0 L Magnesium 2.0 Vancomycin Trough BCR/abl Interp & Reprt See Note 01/26/21 01/27/21 01/27/21 14:54 06:39 06:39 WBC 12.8 H RBC 3.52 L Hgb 10.3 L Hct 31.4 L MCV 89.2 MCH 29.3 MCHC 32.8 RDW 16.7 H Plt Count 100 L MPV 8.8 L Absolute Nucleated RBC 0.000 Nucleated RBC % (auto) 0.0 Sodium 136 Potassium 3.9 Chloride 98 Carbon Dioxide 29 Anion Gap 13 BUN 16 Creatinine 0.60 Estim Creat Clear Calc 140.5 Estimated GFR > 60 Random Glucose 99 Calcium 8.5 D Magnesium Vancomycin Trough 19.8 BCR/abl Interp & Reprt 01/27/21 06:39 WBC RBC Hgb Hct MCV MCH MCHC RDW Plt Count MPV Absolute Nucleated RBC Nucleated RBC % (auto) Sodium Potassium Chloride Carbon Dioxide Anion Gap BUN Creatinine 0.59 Estim Creat Clear Calc 142.9 Estimated GFR > 60 Random Glucose Calcium Magnesium Vancomycin Trough BCR/abl Interp & Reprt Imaging Radiology Impressions: ITS Impressions Chest X-Ray 01/17/21 21:02 IMPRESSION: Multifocal airspace opacities are new/increased when compared to the chest radiograph from 01/02/2021 and correlate with septic emboli disease and multifocal pneumonia noted on the CT from 01/15/2021. Small left pleural effusion. Paracentesis Ultrasound 01/20/21 13:00 IMPRESSION: Ultrasound-guided paracentesis. Doppler Study Ultrasound 01/21/21 16:14 IMPRESSION: Very limited exam. There appears to be nonocclusive thrombus in the main portal vein. Prominent portal vessels questionable for developing collateral vessels. The intrahepatic IVC is patent but has an abnormal monophasic waveform. Cirrhosis and ascites. Repeat imaging following paracentesis should be considered. Paracentesis Ultrasound 01/22/21 15:00 IMPRESSION: Complex ascites with portions appearing to be gelatinous in nature. Aspiration of 2.2 L of clear karen-colored fluid. Doppler Study Ultrasound 01/22/21 15:07 IMPRESSION: Partial portal vein occlusive disease with hepatopedal flow still noted. Patent hepatic artery. Hepatic veins appear unremarkable. KUB X-Ray 01/23/21 09:51 IMPRESSION: Increased gaseous distention large and small bowel since CT 01/15/2021. Distal descending and sigmoid colon nondistended. Abdomen/Pelvis CT 01/23/21 12:35 IMPRESSION: Cirrhosis with diffuse ascites. Moderate constipation. No obstruction, free air. Mild gaseous distention of colon. Bilateral lower lobe consolidations with small pleural effusions and adjacent right middle lobe and lingular atelectasis/scarring. Paracentesis Ultrasound 01/24/21 14:16 IMPRESSION: Paracentesis right upper quadrant, as described. KUB X-Ray 01/26/21 08:47 IMPRESSION: Dilated bowel loops slightly improved. Medications Medications Current Medications Acetaminophen (Acetaminophen 325 Mg Tablet) 650 mg PO Q6H PRN PRN Reason: Pain, Mild (Pain Scale 1-3) Last Admin: 01/26/21 17:52 Dose: 650 mg Documented by: Docusate Sodium (Docusate Sodium 100 Mg Capsule) 100 mg PO BID [facility] Last Admin: 01/27/21 08:08 Dose: Not Given Documented by: Furosemide (Furosemide 20 Mg/2 Ml Vial) 20 mg IVPUSH Q12H [facility]; Protocol Last Admin: 01/27/21 08:06 Dose: 20 mg Documented by: Gabapentin (Gabapentin 100 Mg Capsule) 100 mg PO TID [facility] Last Admin: 01/27/21 18:07 Dose: 100 mg Documented by: Daptomycin 470 mg/ Sodium (Chloride) 59.4 mls @ 100 mls/hr IV Q24H [facility] Last Infusion: 01/27/21 12:28 Dose: Infused Documented by: Lidocaine (Lidocaine 4 % Patch Adh..Patch) 1 patch TRANSDERMA DAILY [facility]; Protocol Last Admin: 01/27/21 08:04 Dose: 1 patch Documented by: Melatonin (Melatonin 3 Mg Tablet) 6 mg PO BEDTIME PRN PRN Reason: Insomnia Methadone HCl (Methadone Hcl 20 Mg/2 Ml Oral.Conc) 55 mg PO DAILY [facility] Last Admin: 01/27/21 11:30 Dose: 55 mg Documented by: Metoclopramide HCl (Metoclopramide Hcl 10 Mg/2 Ml Vial) 10 mg IVPUSH Q6H PRN PRN Reason: Nausea Nicotine Polacrilex (Nicotine Polacrilex 2 Mg Gum) 2 mg BUCCAL Q1H PRN PRN Reason: eduardotein Last Admin: 01/26/21 20:02 Dose: 2 mg Documented by: Pantoprazole Sodium (Pantoprazole Sodium 40 Mg/10 Ml Vial) 40 mg IVPUSH BID@0630,1630 [facility] Last Admin: 01/27/21 18:07 Dose: 40 mg Documented by: Pharmacy Consult (Consult Rx Vancomycin Dosing) 1 each MISCELLANE DAILY PRN PRN Reason: Consult order Pharmacy Consult (Consult Rx Vancomycin Dosing) 1 each MISCELLANE DAILY PRN PRN Reason: Consult order Polyethylene Glycol (Polyethylene Glycol 3350 17 Gm Powd.Pack) 17 gm PO BIDPC [facility] Last Admin: 01/27/21 18:07 Dose: Not Given Documented by: Sodium Chloride (0.9 % Sodium Chloride Flush 3 Ml Syringe) 3 ml IVFLUSH QSHIFT [facility] Last Admin: 01/27/21 18:07 Dose: 3 ml Documented by: Spironolactone (Spironolactone 25 Mg Tablet) 25 mg PO BID@0900,1800 [facility]; Protocol Last Admin: 01/27/21 18:07 Dose: 25 mg Documented by: Allergies Allergies Allergy/AdvReac Type Severity Reaction Status Date / Time No Known Allergies Allergy Verified 01/02/21 06:31 [No Known Allergies*] Assessment & Plan Assessment & Plan (1) Opioid use disorder: Status: Acute Code(s): F11.90 - Opioid use, unspecified, uncomplicated Assessment and Plan: * Methadone increased back to 55mg QD (only missed one full day) * Continue to monitor for oversedation due to impaired liver function --still at risk for methadone dose accumulation * No additional dose changes at this time * Discussed with RN and hospitalist I spent __25____ minutes with the patient and/or on the patient floor today, greater than?50% of which was spent counseling/coordinating care.
[2021-01-27 19:26] VITALS: BP 136/67; PULSE 110; RESP 18; TEMP 36.9; O2SAT 92
[2021-01-27] MEDS: Melatonin 3 MG TABLET 6 MG PO (21:06)
[2021-01-27] MEDS: Docusate Sodium 100 MG CAPSULE PO (21:06)
[2021-01-27 23:18] VITALS: BP 138/83; PULSE 101; RESP 18; TEMP 36.8; O2SAT 95
[2021-01-28] VITALS (8 sets, daily range): BP systolic 125–156; BP diastolic 71–90; PULSE 100–108; RESP 15–18; TEMP 36.6–37.1; O2SAT 92–95
[2021-01-28] MEDS: 0.9 % Sodium Chloride Flush 3 ML SYRINGE IVFLUSH ×4 (05:47→20:03)
[2021-01-28] MEDS: Pantoprazole Sodium 40 MG/10 ML VIAL IVPUSH ×2 (05:47→15:52)
[2021-01-28 07:07] LABS: Anion Gap 14 (12-20); Blood Urea Nitrogen 18 mg/dL (9-16); Calcium 8.5 mg/dL (8.4-10.2); Carbon Dioxide 26 mmol/L (22-29); Chloride 99 mmol/L (96-108); Creatinine Clr Calc Pharmacy 138.2; Estimated Glomerular Filt Rate > 60; Glucose Random 119 mg/dL (60-115); Sodium 135 mmol/L (135-145)
[2021-01-28 08:15] LABS: Hematocrit 32.9 % (42.0-52.0); Hemoglobin 10.4 g/dl (14.0-18.0); Mean Corpuscular HGB Conc 31.6 g/dl (31.0-36.0); Mean Corpuscular Hemoglobin 28.3 pg (27.0-33.0); Mean Corpuscular Volume 89.4 fL (80.0-98.0); Mean Platelet Volume 9.2 fL (9.4-12.4); Platelet Count 102 X10*3/uL (160-400); Red Blood Count 3.68 X10*6/uL (4.60-5.80); Red Cell Distribution Width 16.8 % (11.0-16.0); White Blood Count 12.9 X10*3/uL (4.8-10.8)
[2021-01-28] MEDS: Furosemide 20 MG/2 ML VIAL IVPUSH ×2 (08:33→20:03)
[2021-01-28] MEDS: methADONE HCl 20 MG/2 ML ORAL.CONC 55 MG PO (08:33)
[2021-01-28] MEDS: Spironolactone 25 MG TABLET PO ×2 (08:34→18:42)
[2021-01-28] MEDS: Ketorolac Tromethamine 15 MG/ML VIAL IVPUSH ×2 (08:34→20:02)
[2021-01-28] MEDS: Docusate Sodium 100 MG CAPSULE PO ×2 (08:34→20:03)
[2021-01-28] MEDS: Lidocaine 4 % Patch ADH..PATCH 1 PATCH TRANSDERMA (08:34)
[2021-01-28] MEDS: Gabapentin 100 MG CAPSULE PO ×3 (08:34→20:03)
[2021-01-28] MEDS: polyethylene glycoL 3350 17 GM POWD.PACK PO (08:34)
--- NOTE | 2021-01-28 08:38 | MHC.CM.PN ---
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 cm to cont. to follow.
[2021-01-28] MEDS: DAPTOMYCIN IV (13:08)
[2021-01-28] MEDS: SODIUM CHLORIDE 0.9% IV (13:08)
--- NOTE | 2021-01-28 13:39 | HO.PM.IMPN ---
Subjective Subjective Date of Service: 01/28/21 Interval History: seen in f/u for sepsis, peritonitis--c/o lots of pain Review of Systems no fever abdominal pain Physical Exam Vital Signs: Vital Signs: Last Vital Signs Temp 98.4 F 01/28/21 11:43 Pulse 102 H 01/28/21 11:43 Resp 17 01/28/21 11:43 BP 125/72 01/28/21 11:43 Pulse Ox 95 01/28/21 11:43 Body Mass Index 19.2 Const: Other: General: AO x3, uncomfortable, emaciated Resp: CTA bilateral CVS: S1,S2,RRR GI: +BS, mild distention, sings of ascietes, positive bowel sounds Skin: No rash Neuro: motor grossly intact Psych: appropriate affect Objective Data Active Medications Acetaminophen (Acetaminophen 325 Mg Tablet) 650 mg PO Q6H PRN PRN Reason: Pain, Mild (Pain Scale 1-3) Last Admin: 01/26/21 17:52 Dose: 650 mg Documented by: IRAM Docusate Sodium (Docusate Sodium 100 Mg Capsule) 100 mg PO BID [facility] Last Admin: 01/28/21 08:34 Dose: 100 mg Documented by: SIMON Furosemide (Furosemide 20 Mg/2 Ml Vial) 20 mg IVPUSH Q12H [facility]; Protocol Last Admin: 01/28/21 08:33 Dose: 20 mg Documented by: SIMON Gabapentin (Gabapentin 100 Mg Capsule) 100 mg PO TID [facility] Last Admin: 01/28/21 08:34 Dose: 100 mg Documented by: SIMON Daptomycin 470 mg/ Sodium (Chloride) 59.4 mls @ 100 mls/hr IV Q24H [facility] Last Admin: 01/28/21 13:08 Dose: 100 mls/hr Documented by: SIMON Ketorolac Tromethamine (Ketorolac Tromethamine 15 Mg/Ml Vial) 15 mg IVPUSH Q6H PRN PRN Reason: Breakthrough Pain Last Admin: 01/28/21 08:34 Dose: 15 mg Documented by: SIMON Lidocaine (Lidocaine 4 % Patch Adh..Patch) 1 patch TRANSDERMA DAILY [facility]; Protocol Last Admin: 01/28/21 08:34 Dose: 1 patch Documented by: SIMON Melatonin (Melatonin 3 Mg Tablet) 6 mg PO BEDTIME PRN PRN Reason: Insomnia Last Admin: 01/27/21 21:06 Dose: 6 mg Documented by: CHRISTINA Methadone HCl (Methadone Hcl 20 Mg/2 Ml Oral.Conc) 55 mg PO DAILY [facility] Last Admin: 01/28/21 08:33 Dose: 55 mg Documented by: SIMON Metoclopramide HCl (Metoclopramide Hcl 10 Mg/2 Ml Vial) 10 mg IVPUSH Q6H PRN PRN Reason: Nausea Nicotine Polacrilex (Nicotine Polacrilex 2 Mg Gum) 2 mg BUCCAL Q1H PRN PRN Reason: nicotein Last Admin: 01/26/21 20:02 Dose: 2 mg Documented by: SARAHY Oxycodone HCl (Oxycodone Hcl Immed Release 5 Mg Tablet) 5 mg PO Q6H PRN PRN Reason: Pain, Severe (Pain Scale 7-10) Pantoprazole Sodium (Pantoprazole Sodium 40 Mg/10 Ml Vial) 40 mg IVPUSH BID@0630,1630 [facility] Last Admin: 01/28/21 05:47 Dose: 40 mg Documented by: FLACO Pharmacy Consult (Consult Rx Vancomycin Dosing) 1 each MISCELLANE DAILY PRN PRN Reason: Consult order Polyethylene Glycol ([facility]ethylene Glycol 3350 17 [facility] Last Admin: 01/28/21 08:34 Dose: 17 gm Documented by: SIMON Sodium Chloride (0.9 % Sodium Chloride Flush 3 Ml Syringe) [facility] Last Admin: 01/28/21 08:34 Dose: 3 ml Documented by: SIMON Spironolactone (Spironolactone 25 Mg Tablet) 25 mg PO BID@0900,1800 [facility]; Protocol Last Admin: 01/28/21 08:34 Dose: 25 mg Documented by: SIMON Labs CBC & Chem 7: 01/28/21 08:02 01/28/21 06:14 Labs: Laboratory Results - last 24 hr 01/20/21 01/28/21 01/28/21 06:33 06:14 06:14 MCV MCH MCHC RDW Plt Count MPV Absolute Nucleated RBC Nucleated RBC % (auto) Anion Gap 14 Estim Creat Clear Calc Cancelled 138.2 Estimated GFR Cancelled > 60 Random Glucose 119 H Calcium 8.5 BCR/abl Interp & Reprt See Note 01/28/21 08:02 MCV 89.4 MCH 28.3 MCHC 31.6 RDW 16.8 H Plt Count 102 L MPV 9.2 L Absolute Nucleated RBC 0.000 Nucleated RBC % (auto) 0.0 Anion Gap Estim Creat Clear Calc Estimated GFR Random Glucose Calcium BCR/abl Interp & Reprt Assessment and Plan (1) Ascites: Status: Acute (2) Septic pulmonary embolism: Status: Acute (3) Cirrhosis: Status: Acute (4) MRSA bacteremia: Status: Acute (5) Abdominal pain: Status: Acute Assessment and Plan: 35yo M who uses injection heroin and was diagnosed with MRSA bacteremia in the ED 01/02/21 but could not be contacted to be called back admitted 01/15-01/17/21 with ascites growing MRSA [[id number] WBCs, 86% PMNs] and persistent positive BCx growing MRSA but signed out AMA 01/17/21 re-admitted 01/17/21 and given naloxone for suspected heroin overdose still bacteremic 1. MRSA bacteremia, initially was on Vanco but was changed to to Dapto on 01/26 for better coverage of periotonitis, blood cultures have cleared but has peritoneal fluid was still positive for MRSA. No endocarditis by MICHELLE. Once rehab available will need PICC line for rn long term care antibiotics. 2.MRSA peritonitis-on daptomycin day #. 3. decompensated cirrhosis with rapidly reacculmulating fluid, thus far has 3 taps in week with toal of 12 liters removed (7, 2, 3 liters). continue medical management with Lasix, Aldactone. 4. HCV reinfection [viral load 274k]- will need outpt treatment at hepatology center 5. septic pulmonary emboli- due to MRSA bacteremia; not hypoxic 6.leukocytosis- likely leukemoid reaction from infection, wbc improving, Heme consult done, bcr/abl pending 7.cellulitis of feet + hands- continue vancomycin 8. L glenohumeral/bursal fluid collection- not clinically consistent with septic arthritis per Orthopedics 9. hypoNa- mild, likely due to cirrhosis 10. LUQ hematoma- per Surgery, no intervention indicated. 11. ileus versus constipation multifactorial:? ascites, MRSA infection,? pain medication. ?last xray seems improving ,still has pain, continue luxatives. tolerating regular diet 12. opioid use disorder- Addiction Medicine following-discussed with the added Addiction Team-hold methadone for 48 hours for now due to above ileus . Please avoid opioids use due to constipation as above, continue lidocaine patch, Tylenol, also added gabapentin for pain, 13. moderate protein-calorie malnutrition- continue suplemeents 14. VTE ppx - UFH ?dispo- once BCx clear, needs PICC line and STR Quality Stroke Does the patient have a stroke diagnosis?: No VTE Prior VTE?: No VTE Risk Level:: Medical - moderate - high VTE Device Contraindication: Treatment Not Indicated VTE Drug Contraindication: N/A - Med Ordered
[2021-01-28] MEDS: oxyCODONE HCl Immed Release 5 MG TABLET PO ×2 (14:09→22:58)
--- NOTE | 2021-01-28 14:15 | MHC.RECOVRN ---
Met with pt to check in. Pt c/o pain, recently received 5 mg Oxycodone. Pt wincing with movements, states Even talking hurts. It all hurts. Pt asking for paracentesis. Pt states I'm dying, I just want to be comfortable. T/w met with CM, discussed d/c plans. Pts information has been sent to [facility]. Pt will be able to begin dosing with that OTP upon dc. Discussed with Elvira Chavez APRN. Will continue to follow.
--- NOTE | 2021-01-28 14:29 | P.PNGS_ITS ---
Subjective Subjective Date of Service: 01/28/21 Interval history: Complains of pain Passing flatus BMs Says he needs pain meds Physical Exam Vital Signs: Vital Signs: Last Vital Signs Temp 98.4 F 01/28/21 11:43 Pulse 102 H 01/28/21 11:43 Resp 17 01/28/21 11:43 BP 125/72 01/28/21 11:43 Pulse Ox 95 01/28/21 11:43 Body Mass Index 19.2 Const: Other: Appears very drowsy, cachectic and frail Resp: Other: A little short of breath Cardio: Rhythm: regular rhythm GI: Other: Very globular with ascites, tender throughout, no guarding rebound Objective Data Active Medications Acetaminophen (Acetaminophen 325 Mg Tablet) 650 mg PO Q6H PRN PRN Reason: Pain, Mild (Pain Scale 1-3) Last Admin: 01/26/21 17:52 Dose: 650 mg Documented by: IRAM Docusate Sodium (Docusate Sodium 100 Mg Capsule) 100 mg PO BID [facility]S AT [facility] Last Admin: 01/28/21 08:34 Dose: 100 mg Documented by: SIMON Furosemide (Furosemide 20 Mg/2 Ml Vial) 20 mg IVPUSH Q12H [facility] 234 BEDS AT [facility]; Protocol Last Admin: 01/28/21 08:33 Dose: 20 mg Documented by: SIMON Gabapentin (Gabapentin 100 Mg Capsule) 100 mg PO TID [facility]S [facility]CLUDE 234 BEDS AT [facility] Last Admin: 01/28/21 14:10 Dose: 100 mg Documented by: SIMON Hydromorphone HCl (Hydromorphone Hcl 0.5 Mg/0.5 Ml Syringe) 0.5 mg IVPUSH Q4H PRN; Protocol PRN Reason: Pain, Severe (Pain Scale 7-10) Daptomycin 470 mg/ Sodium (Chloride) 59.4 mls @ 100 mls/hr IV Q24H [facility]S [facility] 234 BEDS AT [facility] Last Infusion: 01/28/21 14:10 Dose: 0 mls/hr Documented by: SIMON Ketorolac Tromethamine (Ketorolac Tromethamine 15 Mg/Ml Vial) 15 mg IVPUSH Q6H PRN PRN Reason: Breakthrough Pain Last Admin: 01/28/21 08:34 Dose: 15 mg Documented by: SIMON Lidocaine (Lidocaine 4 % Patch Adh..Patch) 1 patch TRANSDERMA DAILY [facility] 234 B[facility]S AT [facility]; Protocol Last Admin: 01/28/21 08:34 Dose: 1 patch Documented by: SIMON Melatonin (Melatonin 3 Mg Tablet) 6 mg PO BEDTIME PRN PRN Reason: Insomnia Last Admin: 01/27/21 21:06 Dose: 6 mg Documented by: CHRISTINA Methadone HCl (Methadone Hcl 20 Mg/2 Ml Oral.Conc) 55 mg PO DAILY [facility] 234 B[facility]S AT [facility] Last Admin: 01/28/21 08:33 Dose: 55 mg Documented by: SIMON Metoclopramide HCl (Metoclopramide Hcl 10 Mg/2 Ml Vial) 10 mg IVPUSH Q6H PRN PRN Reason: Nausea Nicotine Polacrilex (Nicotine Polacrilex 2 Mg Gum) 2 mg BUCCAL Q1H PRN PRN Reason: nicotein Last Admin: 01/26/21 20:02 Dose: 2 mg Documented by: SARAHY Oxycodone HCl (Oxycodone Hcl Immed Release 5 Mg Tablet) 5 mg PO Q6H PRN PRN Reason: Pain, Severe (Pain Scale 7-10) Last Admin: 01/28/21 14:09 Dose: 5 mg Documented by: SIMON Pantoprazole Sodium (Pantoprazole Sodium 40 Mg/10 Ml Vial) 40 mg IVPUSH BID@0630,1630 [facility] 234 BEDS AT [facility] Last Admin: 01/28/21 05:47 Dose: 40 mg Documented by: FLACO Pharmacy Consult (Consult Rx Vancomycin Dosing) 1 each MISCELLANE DAILY PRN PRN Reason: Consult order Polyethylene Glycol (Polyethylene Glycol 3350 17 Gm Powd.Pack) 17 gm PO BIDPC COUNTS [facility]CLUDE 234 BEDS AT [facility] Last Admin: 01/28/21 08:34 Dose: 17 gm Documented by: SIMON Sodium Chloride (0.9 % Sodium Chloride Flush 3 Ml Syringe) 3 ml IVFLUSH QSHIFT COUNTS [facility]CLUDE 234 BEDS AT [facility] Last Admin: 01/28/21 14:10 Dose: 3 ml Documented by: SIMON Spironolactone (Spironolactone 25 Mg Tablet) 25 mg PO BID@0900,1800 [facility] 234 BEDS AT [facility]; Protocol Last Admin: 01/28/21 08:34 Dose: 25 mg Documented by: SIMON Labs CBC & Chem 7: 01/28/21 08:02 01/28/21 06:14 Labs: Laboratory Results - last 24 hr 01/20/21 01/28/21 01/28/21 06:33 06:14 06:14 MCV MCH MCHC RDW Plt Count MPV Absolute Nucleated RBC Nucleated RBC % (auto) Anion Gap 14 Estim Creat Clear Calc Cancelled 138.2 Estimated GFR Cancelled > 60 Random Glucose 119 H Calcium 8.5 BCR/abl Interp & Reprt See Note 01/28/21 08:02 MCV 89.4 MCH 28.3 MCHC 31.6 RDW 16.8 H Plt Count 102 L MPV 9.2 L Absolute Nucleated RBC 0.000 Nucleated RBC % (auto) 0.0 Anion Gap Estim Creat Clear Calc Estimated GFR Random Glucose Calcium BCR/abl Interp & Reprt Procedures Date of Service Date of Service: 01/28/21 Progress Note: A&P Assessment and plan (1) Ascites: Status: Acute Assessment and Plan: Passing flatus and BMs Clinically not obstructed Tenderness likely from ascites with bacterial peritonitis Antibiotic treatment Pain management No surgical issues at this time Fall Risk Details Current Medications: Current Medications Acetaminophen (Acetaminophen 325 Mg Tablet) 650 mg PO Q6H PRN PRN Reason: Pain, Mild (Pain Scale 1-3) Last Admin: 01/26/21 17:52 Dose: 650 mg Documented by: Docusate Sodium (Docusate Sodium 100 Mg Capsule) 100 mg PO BID [facility]S [facility]CLUDE 234 BEDS AT [facility] Last Admin: 01/28/21 08:34 Dose: 100 mg Documented by: Furosemide (Furosemide 20 Mg/2 Ml Vial) 20 mg IVPUSH Q12H [facility]S [facility]CLUDE 234 BEDS AT [facility]; Protocol Last Admin: 01/28/21 08:33 Dose: 20 mg Documented by: Gabapentin (Gabapentin 100 Mg Capsule) 100 mg PO TID [facility]S [facility]CLUDE 234 BEDS AT [facility] Last Admin: 01/28/21 14:10 Dose: 100 mg Documented by: Hydromorphone HCl (Hydromorphone Hcl 0.5 Mg/0.5 Ml Syringe) 0.5 mg IVPUSH Q4H PRN; Protocol PRN Reason: Pain, Severe (Pain Scale 7-10) Daptomycin 470 mg/ Sodium (Chloride) 59.4 mls @ 100 mls/hr IV Q24H [facility]S [facility]CLUDE 234 BEDS AT [facility] Last Infusion: 01/28/21 14:10 Dose: Infused Documented by: Ketorolac Tromethamine (Ketorolac Tromethamine 15 Mg/Ml Vial) 15 mg IVPUSH Q6H PRN PRN Reason: Breakthrough Pain Last Admin: 01/28/21 08:34 Dose: 15 mg Documented by: Lidocaine (Lidocaine 4 % Patch Adh..Patch) 1 patch TRANSDERMA DAILY [facility]S [facility]CLUDE 234 BEDS AT [facility]; Protocol Last Admin: 01/28/21 08:34 Dose: 1 patch Documented by: Melatonin (Melatonin 3 Mg Tablet) 6 mg PO BEDTIME PRN PRN Reason: Insomnia Last Admin: 01/27/21 21:06 Dose: 6 mg Documented by: Methadone HCl (Methadone Hcl 20 Mg/2 Ml Oral.Conc) 55 mg PO DAILY [facility]CLUDE 234 BEDS AT [facility] Last Admin: 01/28/21 08:33 Dose: 55 mg Documented by: Metoclopramide HCl (Metoclopramide Hcl 10 Mg/2 Ml Vial) 10 mg IVPUSH Q6H PRN PRN Reason: Nausea Nicotine Polacrilex (Nicotine Polacrilex 2 Mg Gum) 2 mg BUCCAL Q1H PRN PRN Reason: nicotein Last Admin: 01/26/21 20:02 Dose: 2 mg Documented by: Oxycodone HCl (Oxycodone Hcl Immed Release 5 Mg Tablet) 5 mg PO Q6H PRN PRN Reason: Pain, Severe (Pain Scale 7-10) Last Admin: 01/28/21 14:09 Dose: 5 mg Documented by: Pantoprazole Sodium (Pantoprazole Sodium 40 Mg/10 Ml Vial) 40 mg IVPUSH BID@0630,1630 COUNTS INCLUDE 234 BEDS AT [facility] Last Admin: 01/28/21 05:47 Dose: 40 mg Documented by: Pharmacy Consult (Consult Rx Vancomycin Dosing) 1 each MISCELLANE DAILY PRN PRN Reason: Consult order Polyethylene Glycol (Polyethylene Glycol 3350 17 Gm Powd.Pack) 17 gm PO BIDPC COUNTS INCLUDE 234 BEDS AT THE [facility] Last Admin: 01/28/21 08:34 Dose: 17 gm Documented by: Sodium Chloride (0.9 % Sodium Chloride Flush 3 Ml Syringe) 3 ml IVFLUSH QSHIFT COUNTS INCLUDE 234 BEDS AT [facility] Last Admin: 01/28/21 14:10 Dose: 3 ml Documented by: Spironolactone (Spironolactone 25 Mg Tablet) 25 mg PO BID@0900,1800 COUNTS INCLUDE 234 BEDS AT THE [facility]; Protocol Last Admin: 01/28/21 08:34 Dose: 25 mg Documented by: Time Spent With Patient Time: Total time spent is greater than 50% in coordination of care (as documented) at patient's floor/unit and/or counseling patient: Time with patient: 15 - 24 minutes Quality Stroke Does the patient have a stroke diagnosis?: No VTE Prior VTE?: No VTE Risk Level:: Medical - moderate - high VTE Device Contraindication: Treatment Not Indicated VTE Drug Contraindication: N/A - Med Ordered
--- NOTE | 2021-01-28 15:45 | MHC.CM.PN ---
[facility] has committed to offering patient a bed per humza domingo at [facility]. she is planning to get auth tomorrow, 01/29/21. hospitalist is aware of this and said he will have interventional radiology place picc line tomorrow. vandana evans has told me that pt will need to have a first dosing / intake appointment at [facility] in [place] the day p DC. d/t the holiday and upcoming weekend this may not be able to happen until wednesday. this may create a barrier to dc until wednesday. vandana evans told me the N[employer] she works c has communicated this to hospitalist. cm to cont. to follow.
[2021-01-28] MEDS: HYDROmorphone HCl 0.5 MG/0.5 ML SYRINGE IVPUSH ×2 (15:52→18:42)
[2021-01-28] MEDS: Lidocaine HCl 1 % MPF 5 ML VIAL SUBCUT (17:07)
--- NOTE | 2021-01-28 17:09 | HO.ADDICTPRO ---
Subjective Subjective Date of Service: 01/28/21 Reason For Visit: Bacteremia Interim History: Patient reporting he is experiencing pain and requesting paracentesis Appearing quite uncomfortable and cachectic with distended abdomen. Denies any withdrawal sx. Review of Systems Acute medical concerns: Yes Medical Review of Systems: unchanged Mental Status Exam Mental Status Exam Patient Appearance: Appropriate (cachectic, hospital attire, distended abdomen, grimacing ) Patient Orientation: Person, Place, Time and Situation Level of Consciousness: Awake and Appropriate Patient Behavior: Appropriate, Restless, Anxious and Crying Mood Description: Anxious and Sad Affect Description: Anxious and Sad Ability to Follow Directions: Excellent Thought Process: Intact Judgement: Good Diagnostics Vital Signs (24Hr): Vital Signs - 24 hr 01/27/21 19:26 01/27/21 23:18 01/28/21 04:00 Temperature 98.4 F 98.2 F 98.7 F Pulse Rate 110 H 101 H 105 H Respiratory Rate 18 18 18 Blood Pressure 136/67 138/83 141/85 H Pulse Oximetry 92 95 95 01/28/21 07:19 01/28/21 08:34 01/28/21 11:43 Temperature 97.9 F 98.4 F Pulse Rate 102 H 102 H 102 H Respiratory Rate 15 17 Blood Pressure 126/71 126/71 125/72 Pulse Oximetry 95 95 01/28/21 15:20 Temperature 98.8 F Pulse Rate 100 Respiratory Rate 15 Blood Pressure 134/82 Pulse Oximetry 95 Body Mass Index 19.2 Labs Results: 01/28/21 08:02 01/28/21 06:14 Labs: Laboratory Results - last 48 hr 01/20/21 01/27/21 01/27/21 06:33 06:39 06:39 WBC 12.8 H RBC 3.52 L Hgb 10.3 L Hct 31.4 L MCV 89.2 MCH 29.3 MCHC 32.8 RDW 16.7 H Plt Count 100 L MPV 8.8 L Absolute Nucleated RBC 0.000 Nucleated RBC % (auto) 0.0 Sodium 136 Potassium 3.9 Chloride 98 Carbon Dioxide 29 Anion Gap 13 BUN 16 Creatinine 0.60 Estim Creat Clear Calc 140.5 Estimated GFR > 60 Random Glucose 99 Calcium 8.5 D BCR/abl Interp & Reprt See Note 01/27/21 01/28/21 01/28/21 06:39 06:14 06:14 WBC RBC Hgb Hct MCV MCH MCHC RDW Plt Count MPV Absolute Nucleated RBC Nucleated RBC % (auto) Sodium 135 Potassium 4.0 Chloride 99 Carbon Dioxide 26 Anion Gap 14 BUN 18 H Creatinine 0.59 Cancelled 0.61 Estim Creat Clear Calc 142.9 Cancelled 138.2 Estimated GFR > 60 Cancelled > 60 Random Glucose 119 H Calcium 8.5 BCR/abl Interp & Reprt 01/28/21 08:02 WBC 12.9 H RBC 3.68 L Hgb 10.4 L Hct 32.9 L MCV 89.4 MCH 28.3 MCHC 31.6 RDW 16.8 H Plt Count 102 L MPV 9.2 L Absolute Nucleated RBC 0.000 Nucleated RBC % (auto) 0.0 Sodium Potassium Chloride Carbon Dioxide Anion Gap BUN Creatinine Estim Creat Clear Calc Estimated GFR Random Glucose Calcium BCR/abl Interp & Reprt Imaging Radiology Impressions: ITS Impressions Chest X-Ray 01/17/21 21:02 IMPRESSION: Multifocal airspace opacities are new/increased when compared to the chest radiograph from 01/02/2021 and correlate with septic emboli disease and multifocal pneumonia noted on the CT from 01/15/2021. Small left pleural effusion. Paracentesis Ultrasound 01/20/21 13:00 IMPRESSION: Ultrasound-guided paracentesis. Doppler Study Ultrasound 01/21/21 16:14 IMPRESSION: Very limited exam. There appears to be nonocclusive thrombus in the main portal vein. Prominent portal vessels questionable for developing collateral vessels. The intrahepatic IVC is patent but has an abnormal monophasic waveform. Cirrhosis and ascites. Repeat imaging following paracentesis should be considered. Paracentesis Ultrasound 01/22/21 15:00 IMPRESSION: Complex ascites with portions appearing to be gelatinous in nature. Aspiration of 2.2 L of clear karen-colored fluid. Doppler Study Ultrasound 01/22/21 15:07 IMPRESSION: Partial portal vein occlusive disease with hepatopedal flow still noted. Patent hepatic artery. Hepatic veins appear unremarkable. KUB X-Ray 01/23/21 09:51 IMPRESSION: Increased gaseous distention large and small bowel since CT 01/15/2021. Distal descending and sigmoid colon nondistended. Abdomen/Pelvis CT 01/23/21 12:35 IMPRESSION: Cirrhosis with diffuse ascites. Moderate constipation. No obstruction, free air. Mild gaseous distention of colon. Bilateral lower lobe consolidations with small pleural effusions and adjacent right middle lobe and lingular atelectasis/scarring. Paracentesis Ultrasound 01/24/21 14:16 IMPRESSION: Paracentesis right upper quadrant, as described. KUB X-Ray 01/26/21 08:47 IMPRESSION: Dilated bowel loops slightly improved. Doppler Study Ultrasound 01/28/21 08:00 IMPRESSION: Partially occlusive thrombus in the main portal vein similar to previous exams. There is appropriate hepatopedal flow. Medications Medications Current Medications Acetaminophen (Acetaminophen 325 Mg Tablet) 650 mg PO Q6H PRN PRN Reason: Pain, Mild (Pain Scale 1-3) Last Admin: 01/26/21 17:52 Dose: 650 mg Documented by: Docusate Sodium (Docusate Sodium 100 Mg Capsule) 100 mg PO BID [facility] Last Admin: 01/28/21 08:34 Dose: 100 mg Documented by: Furosemide (Furosemide 20 Mg/2 Ml Vial) 20 mg IVPUSH Q12H [facility]; Protocol Last Admin: 01/28/21 08:33 Dose: 20 mg Documented by: Gabapentin (Gabapentin 100 Mg Capsule) 100 mg PO TID [facility] Last Admin: 01/28/21 14:10 Dose: 100 mg Documented by: Hydromorphone HCl (Hydromorphone Hcl 0.5 Mg/0.5 Ml Syringe) 0.5 mg IVPUSH Q4H PRN; Protocol PRN Reason: Pain, Severe (Pain Scale 7-10) Last Admin: 01/28/21 15:52 Dose: 0.5 mg Documented by: Daptomycin 470 mg/ Sodium (Chloride) 59.4 mls @ 100 mls/hr IV Q24H [facility] Last Infusion: 01/28/21 14:10 Dose: Infused Documented by: Ketorolac Tromethamine (Ketorolac Tromethamine 15 Mg/Ml Vial) 15 mg IVPUSH Q6H PRN PRN Reason: Breakthrough Pain Last Admin: 01/28/21 08:34 Dose: 15 mg Documented by: Lidocaine (Lidocaine 4 % Patch Adh..Patch) 1 patch TRANSDERMA DAILY [facility]; Protocol Last Admin: 01/28/21 08:34 Dose: 1 patch Documented by: Melatonin (Melatonin 3 Mg Tablet) 6 mg PO BEDTIME PRN PRN Reason: Insomnia Last Admin: 01/27/21 21:06 Dose: 6 mg Documented by: Methadone HCl (Methadone Hcl 20 Mg/2 Ml Oral.Conc) 55 mg PO DAILY [facility] Last Admin: 01/28/21 08:33 Dose: 55 mg Documented by: Metoclopramide HCl (Metoclopramide Hcl 10 Mg/2 Ml Vial) 10 mg IVPUSH Q6H PRN PRN Reason: Nausea Nicotine Polacrilex (Nicotine Polacrilex 2 Mg Gum) 2 mg BUCCAL Q1H PRN PRN Reason: nicotein Last Admin: 01/26/21 20:02 Dose: 2 mg Documented by: Oxycodone HCl (Oxycodone Hcl Immed Release 5 Mg Tablet) 5 mg PO Q6H PRN PRN Reason: Pain, Severe (Pain Scale 7-10) Last Admin: 01/28/21 14:09 Dose: 5 mg Documented by: Pantoprazole Sodium (Pantoprazole Sodium 40 Mg/10 Ml Vial) 40 mg IVPUSH BID@0630,1630 [facility] Last Admin: 01/28/21 15:52 Dose: 40 mg Documented by: Pharmacy Consult (Consult Rx Vancomycin Dosing) 1 each MISCELLANE DAILY PRN PRN Reason: Consult order Polyethylene Glycol (Polyethylene Glycol 3350 17 Gm Powd.Pack) 17 gm PO BIDPC [facility] Last Admin: 01/28/21 08:34 Dose: 17 gm Documented by: Sodium Chloride (0.9 % Sodium Chloride Flush 3 Ml Syringe) 3 ml IVFLUSH [facility] Last Admin: 01/28/21 14:10 Dose: 3 ml Documented by: Spironolactone (Spironolactone 25 Mg Tablet) 25 mg PO BID@0900,1800 [facility]; Protocol Last Admin: 01/28/21 08:34 Dose: 25 mg Documented by: Allergies Allergies Allergy/AdvReac Type Severity Reaction Status Date / Time No Known Allergies Allergy Verified 01/02/21 06:31 [No Known Allergies*] Assessment & Plan Assessment & Plan (1) Opioid use disorder: Status: Acute Code(s): F11.90 - Opioid use, unspecified, uncomplicated Assessment and Plan: No changes to methadone dose discussed case with Dr. Barrios, including request for additional pain management. Due to opioid tolerance, patient will require higher doses of opioids. will continue to follow I spent __25____ minutes with the patient and/or on the patient floor today, greater than?50% of which was spent counseling/coordinating care.
[2021-01-28] MEDS: Nicotine Polacrilex 2 MG GUM BUCCAL (20:09)
[2021-01-29] MEDS: HYDROmorphone HCl 0.5 MG/0.5 ML SYRINGE IVPUSH ×6 (00:27→23:22)
[2021-01-29 03:14] VITALS: BP 146/86; PULSE 104; RESP 17; TEMP 36.8; O2SAT 92
[2021-01-29] MEDS: Pantoprazole Sodium 40 MG/10 ML VIAL IVPUSH (06:14)
[2021-01-29 06:59] VITALS: BP 136/86; PULSE 110; RESP 16; TEMP 36.1; O2SAT 96
[2021-01-29 07:02] LABS: Creatinine Clr Calc Pharmacy 133.8; Estimated Glomerular Filt Rate > 60
[2021-01-29] MEDS: Furosemide 20 MG/2 ML VIAL IVPUSH ×2 (09:22→19:32)
[2021-01-29] MEDS: Lidocaine 4 % Patch ADH..PATCH 1 PATCH TRANSDERMA (09:23)
[2021-01-29] MEDS: Gabapentin 100 MG CAPSULE PO ×3 (09:24→19:33)
[2021-01-29] MEDS: 0.9 % Sodium Chloride Flush 3 ML SYRINGE IVFLUSH ×3 (09:24→23:23)
[2021-01-29] MEDS: Spironolactone 25 MG TABLET PO ×2 (09:24→19:33)
[2021-01-29] MEDS: methADONE HCl 20 MG/2 ML ORAL.CONC 55 MG PO (09:24)
[2021-01-29] MEDS: Docusate Sodium 100 MG CAPSULE PO (09:24)
[2021-01-29] MEDS: polyethylene glycoL 3350 17 GM POWD.PACK PO (09:25)
[2021-01-29] MEDS: Ketorolac Tromethamine 15 MG/ML VIAL IVPUSH ×3 (09:30→22:01)
[2021-01-29] MEDS: DAPTOMYCIN IV (10:38)
[2021-01-29] MEDS: SODIUM CHLORIDE 0.9% IV (10:38)
[2021-01-29 10:54] VITALS: BP 119/70; PULSE 74; RESP 19; TEMP 36; O2SAT 96
[2021-01-29] MEDS: Nicotine Polacrilex 2 MG GUM BUCCAL ×2 (11:05→19:37)
--- NOTE | 2021-01-29 11:18 | MHC.CLN ---
Addendum entered by Alice Syed, TIFFANIE 01/29/21 12:51: AGREE WITH PROVIDER'S ASSESSMENT BELOW Original Note: F/U PT WILL BE D/C ONCE HE RECEIVES PICC LINE PER MD DIET RX: REGULAR-APPROPRIATE PO INTAKE DOCUMENTED 75% PT RECEIVING ENSURE PLUS SUPPLEMENT BID TO PROVIDE EXTRA CALORIES SUPPLEMENT PROVIDES 700 KCALS AND 32 GRAMS PROTEIN MONITOR PO INTAKE CLOSELY
[2021-01-29 14:59] VITALS: BP 140/78; PULSE 100; RESP 20; TEMP 37.1; O2SAT 95
--- NOTE | 2021-01-29 16:13 | P.PNIM_ITS ---
Subjective Subjective Date of Service: 01/29/21 Interval History: seen in f/u for sepsis, peritonitis--still having pain but seems better Review of Systems no fever abdominal pain Physical Exam Vital Signs: Vital Signs: Last Vital Signs Temp 98.8 F 01/29/21 14:59 Pulse 100 01/29/21 14:59 Resp 20 01/29/21 14:59 BP 140/78 H 01/29/21 14:59 Pulse Ox 95 01/29/21 14:59 Body Mass Index 19.2 Const: Other: General: AO X 3, looks uncomfortable Resp: CTA bilateral CVS: S1,S2,RRR GI: +BS, NT, slightly distended Skin: No rash Neuro: motor grossly intact Psych: appropriate affect Objective Data Active Medications Acetaminophen (Acetaminophen 325 Mg Tablet) 650 mg PO Q6H PRN PRN Reason: Pain, Mild (Pain Scale 1-3) Last Admin: 01/26/21 17:52 Dose: 650 mg Documented by: IRAM Docusate Sodium (Docusate Sodium 100 Mg Capsule) 100 mg PO BID [facility] Last Admin: 01/29/21 09:24 Dose: 100 mg Documented by: ELLE Furosemide (Furosemide 20 Mg/2 Ml Vial) 20 mg IVPUSH Q12H [facility]; Protocol Last Admin: 01/29/21 09:22 Dose: 20 mg Documented by: ELLE Gabapentin (Gabapentin 100 Mg Capsule) 100 mg PO TID [facility] Last Admin: 01/29/21 15:30 Dose: 100 mg Documented by: PATRICIO Hydromorphone HCl (Hydromorphone Hcl 0.5 Mg/0.5 Ml Syringe) 0.5 mg IVPUSH Q4H PRN; Protocol PRN Reason: Pain, Severe (Pain Scale 7-10) Last Admin: 01/29/21 15:32 Dose: 0.5 mg Documented by: PATRICIO Daptomycin 470 mg/ Sodium (Chloride) 59.4 mls @ 100 mls/hr IV Q24H [facility] Last Infusion: 01/29/21 11:32 Dose: 0 mls/hr Documented by: ELLE Ketorolac Tromethamine (Ketorolac Tromethamine 15 Mg/Ml Vial) 15 mg IVPUSH Q6H PRN PRN Reason: Breakthrough Pain Last Admin: 01/29/21 15:46 Dose: 15 mg Documented by: ELLE Lidocaine (Lidocaine 4 % Patch Adh..Patch) 1 patch TRANSDERMA DAILY [facility]; Protocol Last Admin: 01/29/21 09:23 Dose: 1 patch Documented by: ELLE Melatonin (Melatonin 3 Mg Tablet) 6 mg PO BEDTIME PRN PRN Reason: Insomnia Last Admin: 01/27/21 21:06 Dose: 6 mg Documented by: CHRISTINA Methadone HCl (Methadone Hcl 20 Mg/2 Ml Oral.Conc) 55 mg PO DAILY [facility] Last Admin: 01/29/21 09:24 Dose: 55 mg Documented by: ELLE Comments: this is his 01/29 9am dose has not had since 833 01/28 Metoclopramide HCl (Metoclopramide Hcl 10 Mg/2 Ml Vial) 10 mg IVPUSH Q6H PRN PRN Reason: Nausea Nicotine Polacrilex (Nicotine Polacrilex 2 Mg Gum) 2 mg BUCCAL Q1H PRN PRN Reason: nicotein Last Admin: 01/29/21 11:05 Dose: 2 mg Documented by: ELLE Oxycodone HCl (Oxycodone Hcl Immed Release 5 Mg Tablet) 5 mg PO Q6H PRN PRN Reason: Pain, Severe (Pain Scale 7-10) Last Admin: 01/28/21 22:58 Dose: 5 mg Documented by: MIRA Pharmacy Consult (Consult Rx Vancomycin Dosing) 1 each MISCELLANE DAILY PRN PRN Reason: Consult order Polyethylene Glycol (Polyethylene Glycol 3350 17 Gm Powd.Pack) 17 gm PO BIDPC [facility] Last Admin: 01/29/21 15:50 Dose: Not Given Documented by: ELLE Non-Admin Reason: Patient Refused Sodium Chloride (0.9 % Sodium Chloride Flush 3 Ml Syringe) 3 ml IVFLUSH QSHIFT [facility] Last Admin: 01/29/21 15:50 Dose: 3 ml Documented by: ELLE Spironolactone (Spironolactone 25 Mg Tablet) 25 mg PO BID@0900,1800 [facility]; Protocol Last Admin: 01/29/21 09:24 Dose: 25 mg Documented by: ELLE Labs CBC & Chem 7: 01/28/21 08:02 01/29/21 06:00 Labs: Laboratory Results - last 24 hr 01/29/21 06:00 Estim Creat Clear Calc 133.8 Estimated GFR > 60 Assessment and Plan (1) Ascites: Status: Acute (2) MRSA (methicillin resistant Staphylococcus aureus) septicemia: Status: Acute Assessment and Plan: 35yo M who uses injection heroin and was diagnosed with MRSA bacteremia in the ED 01/02/21 but could not be contacted to be called back admitted 01/15-01/17/21 with ascites growing MRSA [[id number] WBCs, 86% PMNs] and persistent positive BCx growing MRSA but signed out AMA 01/17/21 re-admitted 01/17/21 and given naloxone for suspected heroin overdose still bacteremic 1. MRSA bacteremia, initially was on Vanco but was changed to to Dapto on 01/26 for better coverage of periotonitis, blood cultures have cleared but has perito lou fluid was still positive for MRSA. No endocarditis by MICHELLE. Once rehab available, PICC line requested 2.MRSA peritonitis-on daptomycin 3. decompensated cirrhosis with rapidly reacculmulating fluid, thus far has 3 taps in week with toal of 13.4 liters removed (7, 2, 3, and 1.4 liters). continue medical management with Lasix, Aldactone. 4. HCV reinfection [viral load 274k]- will need outpt treatment at hepatology center 5. septic pulmonary emboli- due to MRSA bacteremia; not hypoxic 6.leukocytosis- likely leukemoid reaction from infection, wbc improving, Heme consult done, bcr/abl pending 7.Cellulitis of feet + hands- continue vancomycin 8. L glenohumeral/bursal fluid collection- not clinically consistent with septic arthritis per Orthopedics 9. hypoNa- mild, likely due to cirrhosis 10. LUQ hematoma- per Surgery, no intervention indicated. 11. ileus versus constipation multifactorial:? ascites, MRSA infection,? pain medication. ?last xray seems improving ,still has pain, continue luxatives. tolerating regular diet 12. opioid use disorder- Addiction Medicine following-discussed with the added Addiction Team-hold methadone for 48 hours for now due to above ileus . Please avoid opioids use due to constipation as above, continue lidocaine patch, Tylenol, also added gabapentin for pain, 13. moderate protein-calorie malnutrition- continue suplemeents 14. VTE ppx - UFH ?dispo- once BCx clear, needs PICC line and STR, starting hospice conversation with patient Quality Stroke Does the patient have a stroke diagnosis?: No VTE Prior VTE?: No VTE Risk Level:: Medical - moderate - high VTE Device Contraindication: Treatment Not Indicated VTE Drug Contraindication: N/A - Med Ordered
[2021-01-29 18:53] VITALS: BP 125/71; PULSE 90; RESP 20; TEMP 37.3; O2SAT 95
[2021-01-29] MEDS: Melatonin 3 MG TABLET 6 MG PO (23:23)
[2021-01-29 23:36] VITALS: BP 126/73; PULSE 93; RESP 16; TEMP 36.6; O2SAT 94
[2021-01-30] VITALS (12 sets, daily range): BP systolic 126–145; BP diastolic 60–87; PULSE 98–109; RESP 16–20; TEMP 36.2–37.3; O2SAT 93–98
[2021-01-30] MEDS: HYDROmorphone HCl 0.5 MG/0.5 ML SYRINGE IVPUSH ×3 (03:42→14:00)
[2021-01-30] MEDS: Ketorolac Tromethamine 15 MG/ML VIAL IVPUSH ×2 (03:43→11:04)
[2021-01-30 07:44] LABS: Creatinine Clr Calc Pharmacy 140.5; Estimated Glomerular Filt Rate > 60
[2021-01-30] MEDS: methADONE HCl 20 MG/2 ML ORAL.CONC 55 MG PO (08:25)
[2021-01-30] MEDS: Gabapentin 100 MG CAPSULE PO ×3 (08:28→20:46)
[2021-01-30] MEDS: Spironolactone 25 MG TABLET PO ×2 (08:28→17:18)
[2021-01-30] MEDS: Docusate Sodium 100 MG CAPSULE PO ×2 (08:28→20:46)
[2021-01-30] MEDS: Furosemide 20 MG/2 ML VIAL IVPUSH ×2 (08:29→20:46)
[2021-01-30] MEDS: 0.9 % Sodium Chloride Flush 3 ML SYRINGE IVFLUSH ×2 (08:29→17:22)
[2021-01-30] MEDS: Lidocaine 4 % Patch ADH..PATCH 1 PATCH TRANSDERMA (08:29)
[2021-01-30 10:07] LABS: MANUAL DIFF FLAG NO
[2021-01-30 10:10] LABS: Basophils Percent Auto 0.3 % (0-2); Eosinophils Absolute Auto 0.1 X10*3/uL (0.0-0.4); Eosinophils Percent Auto 0.6 % (0-4); Hematocrit 33.4 % (42.0-52.0); Hemoglobin 10.6 g/dl (14.0-18.0); Imm Gran Abs Auto 0.04 X10*3/uL (0.00-0.03); Imm Gran Pct Auto 0.4 % (0.0-0.4); Lymphocytes Absolute Auto 0.9 X10*3/uL (1.2-4.9); Lymphocytes Percent Auto 8.1 % (20-40); Mean Corpuscular HGB Conc 31.7 g/dl (31.0-36.0); Mean Corpuscular Hemoglobin 28.7 pg (27.0-33.0); Mean Corpuscular Volume 90.5 fL (80.0-98.0); Mean Platelet Volume 9.1 fL (9.4-12.4); Monocytes Percent Auto 9.8 % (2-11); Neutrophils Absolute Auto 8.6 x10*3/uL (2.0-8.3); Neutrophils Percent Auto 80.8 % (45-73); Platelet Count 132 X10*3/uL (160-400); Red Blood Count 3.69 X10*6/uL (4.60-5.80); White Blood Count 10.6 X10*3/uL (4.8-10.8)
[2021-01-30] MEDS: SODIUM CHLORIDE 0.9% IV (11:22)
[2021-01-30] MEDS: DAPTOMYCIN IV (11:22)
--- NOTE | 2021-01-30 15:32 | P.PNIM_ITS ---
Subjective Subjective Date of Service: 01/30/21 Interval History: patient seen and examined, he is teary eyed, complaining of constant uncontrolled pain. patient is on Oxy, Dilaudid, and Toradol. he reports no shortness of breath at this time, no urinary symptoms, no chest pain, reports that his abdomen is still painful, he reports no constipation, and reports that he has been moving his bowels with no constipation. Review of Systems Review of Systems: Yes all other systems are reviewed and are negative Physical Exam Vital Signs: Vital Signs: Last Vital Signs Temp 98.7 F 01/30/21 15:21 Pulse 98 01/30/21 15:21 Resp 18 01/30/21 15:21 BP 129/82 01/30/21 15:21 Pulse Ox 98 01/30/21 15:21 Body Mass Index 19.2 Const: Other: patient cachectic General: cooperative and no acute distress Orientation/consciousness: patient oriented x3 Resp: Effort & Inspection: normal respiratory effort, able to speak in complete sentences and abnormal respiratory pattern Auscultation: clear to auscultation bilaterally Cardio: Rate: regular rate Rhythm: regular rhythm GI: Other: abdomen slightly distended Auscultation: normal bowel sounds Neuro: General: patient oriented x3 Extrem: General: Yes normal to inspection and Yes no pedal edema Objective Data Active Medications Acetaminophen (Acetaminophen 325 Mg Tablet) 650 mg PO Q6H PRN PRN Reason: Pain, Mild (Pain Scale 1-3) Last Admin: 01/26/21 17:52 Dose: 650 mg Documented by: IRAM Docusate Sodium (Docusate Sodium 100 Mg Capsule) 100 mg PO BID [facility] Last Admin: 01/30/21 08:28 Dose: 100 mg Documented by: MENDEL Furosemide (Furosemide 20 Mg/2 Ml Vial) 20 mg IVPUSH Q12H [facility]; Protocol Last Admin: 01/30/21 08:29 Dose: 20 mg Documented by: MENDEL Gabapentin (Gabapentin 100 Mg Capsule) 100 mg PO TID [facility] Last Admin: 01/30/21 14:03 Dose: 100 mg Documented by: MENDEL Hydromorphone HCl (Hydromorphone Hcl 0.5 Mg/0.5 Ml Syringe) 0.5 mg IVPUSH Q4H PRN; Protocol PRN Reason: Pain, Severe (Pain Scale 7-10) Last Admin: 01/30/21 14:00 Dose: 0.5 mg Documented by: MENDEL Daptomycin 470 mg/ Sodium (Chloride) 59.4 mls @ 100 mls/hr IV Q24H [facility] Last Infusion: 01/30/21 12:07 Dose: 0 mls/hr Documented by: MENDEL Ketorolac Tromethamine (Ketorolac Tromethamine 15 Mg/Ml Vial) 15 mg IVPUSH Q6H PRN PRN Reason: Breakthrough Pain Last Admin: 01/30/21 11:04 Dose: 15 mg Documented by: MENDEL Lidocaine (Lidocaine 4 % Patch Adh..Patch) 1 patch TRANSDERMA DAILY [facility]; Protocol Last Admin: 01/30/21 08:29 Dose: 1 patch Documented by: MENDEL Melatonin (Melatonin 3 Mg Tablet) 6 mg PO BEDTIME PRN PRN Reason: Insomnia Last Admin: 01/29/21 23:23 Dose: 6 mg Documented by: NELLIE Methadone HCl (Methadone Hcl 20 Mg/2 Ml Oral.Conc) 55 mg PO DAILY [facility] Last Admin: 01/30/21 08:25 Dose: 55 mg Documented by: MENDEL Metoclopramide HCl (Metoclopramide Hcl 10 Mg/2 Ml Vial) 10 mg IVPUSH Q6H PRN PRN Reason: Nausea Nicotine Polacrilex (Nicotine Polacrilex 2 Mg Gum) 2 mg BUCCAL Q1H PRN PRN Reason: nicotein Last Admin: 01/29/21 19:37 Dose: 2 mg Documented by: ELLE Oxycodone HCl (Oxycodone Hcl Immed Release 5 Mg Tablet) 5 mg PO Q6H PRN PRN Reason: Pain, Severe (Pain Scale 7-10) Last Admin: 01/28/21 22:58 Dose: 5 mg Documented by: MIRA Pharmacy Consult (Consult Rx Vancomycin Dosing) 1 each MISCELLANE DAILY PRN PRN Reason: Consult order Polyethylene Glycol (Polyethylene Glycol 3350 17 Gm Powd.Pack) 17 gm PO BIDPC [facility] Last Admin: 01/30/21 08:34 Dose: Not Given Documented by: MENDEL Non-Admin Reason: Patient Refused Sodium Chloride (0.9 % Sodium Chloride Flush 3 Ml Syringe) 3 ml IVFLUSH QSHIFT [facility] Last Admin: 01/30/21 08:29 Dose: 3 ml Documented by: MENDEL Spironolactone (Spironolactone 25 Mg Tablet) 25 mg PO BID@0900,1800 [facility]; Protocol Last Admin: 01/30/21 08:28 Dose: 25 mg Documented by: MENDEL Labs CBC & Chem 7: 01/30/21 10:00 01/30/21 06:22 Labs: Laboratory Results - last 24 hr 01/30/21 01/30/21 06:22 10:00 MCV 90.5 MCH 28.7 MCHC 31.7 RDW 17.0 H Plt Count 132 L D MPV 9.1 L Immature Gran % (Auto) 0.4 Neut % (Auto) 80.8 H Lymph % (Auto) 8.1 L [place] % (Auto) 9.8 Eos % (Auto) 0.6 Baso % (Auto) 0.3 Lymph # (Auto) 0.9 L [place] # (Auto) 1.0 Eos # (Auto) 0.1 Baso # (Auto) 0.0 Abs Immat Gran (auto) 0.04 H Absolute Neuts (auto) 8.6 H Absolute Nucleated RBC 0.000 Nucleated RBC % (auto) 0.0 Estim Creat Clear Calc 140.5 Estimated GFR > 60 Assessment and Plan (1) MRSA (methicillin resistant Staphylococcus aureus) septicemia: Status: Acute (2) Ascites: Status: Acute (3) Left shoulder pain: Status: Acute (4) Leucocytosis: Status: Acute (5) Septic pulmonary embolism: Status: Acute (6) Cirrhosis: Status: Acute (7) SBP (spontaneous bacterial peritonitis): Status: Acute (8) Opioid use disorder: Status: Acute (9) Hematoma and contusion: Status: Acute (10) Cellulitis: Status: Acute (11) Bacteremia: Status: Acute Assessment and Plan: 35yo M who uses injection heroin and was diagnosed with MRSA bacteremia in the ED 01/02/21 but could not be contacted to be called back admitted 01/15-01/17/21 with ascites growing MRSA [01525 WBCs, 86% PMNs] and pe rsistent positive BCx growing MRSA but signed out AMA 01/17/21 re-admitted 01/17/21 and has been hospitalized since being treated for bacteremia and peritonitis 1. MRSA bacteremia, - Pt was initially on? Vanco but was changed to to Dapto on 01/26 for better coverage of periotonitis, - last blood cultures are negative but has peritoneal fluid was still positive for MRSA. - No endocarditis by MICHELLE. - Once rehab available, PICC line requested - continue IV dapto 2.MRSA peritonitis - continue on daptomycin d4 3. decompensated cirrhosis with rapidly reacculmulating fluid, - thus far has 3 taps in week with toal of 13.4 liters removed (7, 2, 3, and 1.4 liters). - continue medical management with Lasix, Aldactone - has severe pain, pt reports not controlled on methadone, oxy and dilaudid . pt also on toradol - at this time ill continue methadone, increase dialudid, will add morphine and cancel toradol given hx of liver ds, as well as hematoma in the LUQ 4. HCV reinfection [viral load 274k] - will need outpt treatment at hepatology center 5. septic pulmonary emboli - due to MRSA bacteremia; not hypoxic 6.leukocytosis - resolved - likely leukemoid reaction from infection, wbc improving, - Heme consult done, bcr/abl pending 7.Cellulitis of feet + hands - improving - on daptomycin- continue 8. L glenohumeral/bursal fluid collection - not clinically consistent with septic arthritis per Orthopedics - monitor 9. hypoNa - very mild, likely due to cirrhosis - follow bmp 10. LUQ hematoma- per Surgery, no intervention indicated. 11. ileus versus constipation multifactorial:? - most likely due to ascites, MRSA infection,? pain medication - pt denies having any constipation , moving his bowels , has gas - his pain is also poorly controlled at this time - spoke to addiction addiction medicine, will increase his dilaudid and add morphine for breakthrough pain ?last xray seems improving - will continue bowel regimen 12. opioid use disorder - Addiction Medicine following - pt on 55 of methadone prior to admission plus uses heroin - His methadone was stopped few days ago due to concern of ileus but has now been resumed at 15. Discussed with addicition medicine given the poorly controlled abd pain - will continue methadone as above, dilaudid, morphine and oxy 13. moderate protein-calorie malnutrition- continue suplemeents 14. VTE ppx - UFH ?dispo- once BCx clear, needs PICC line and STR, starting hospice conversation with patient Quality Stroke Does the patient have a stroke diagnosis?: No VTE Prior VTE?: No VTE Risk Level:: Medical - moderate - high VTE Device Contraindication: Treatment Not Indicated VTE Drug Contraindication: N/A - Med Ordered
[2021-01-30] MEDS: polyethylene glycoL 3350 17 GM POWD.PACK PO (17:18)
[2021-01-30] MEDS: Morphine Sulfate 2 MG/ML CARTRIDGE IVPUSH ×2 (17:18→20:46)
[2021-01-30] MEDS: HYDROmorphone HCl 1 MG/ML SYRINGE IVPUSH ×2 (18:20→23:06)
[2021-01-31] VITALS (10 sets, daily range): BP systolic 129–139; BP diastolic 64–85; PULSE 95–104; RESP 18–20; TEMP 36.6–37.1; O2SAT 92–95
[2021-01-31] MEDS: Morphine Sulfate 2 MG/ML CARTRIDGE IVPUSH ×4 (00:16→23:03)
[2021-01-31] MEDS: 0.9 % Sodium Chloride Flush 3 ML SYRINGE IVFLUSH ×4 (00:18→21:53)
[2021-01-31] MEDS: HYDROmorphone HCl 1 MG/ML SYRINGE IVPUSH ×5 (03:04→21:52)
[2021-01-31 07:24] LABS: Creatinine Clr Calc Pharmacy 150.6; Estimated Glomerular Filt Rate > 60
[2021-01-31] MEDS: Lidocaine 4 % Patch ADH..PATCH 1 PATCH TRANSDERMA (08:31)
[2021-01-31] MEDS: Spironolactone 25 MG TABLET PO (08:31)
[2021-01-31] MEDS: Gabapentin 100 MG CAPSULE PO ×3 (08:31→21:53)
[2021-01-31] MEDS: Docusate Sodium 100 MG CAPSULE PO ×2 (08:31→21:52)
[2021-01-31] MEDS: methADONE HCl 20 MG/2 ML ORAL.CONC 55 MG PO (08:32)
--- NOTE | 2021-01-31 08:41 | PC.NURSE ---
During morning assessment and med pass patient refused Lasix IV. Educated patient on need for medication r/t disease process. Patient still refused. Patient also given PRN dilaudid as ordered for 10/10 abd pain. When patient refused the Lasix, this RN stated she would be pushing the Dilaudid next. After finished with assessment and medication patient states he does not remeber tasting or feeling this RN pushing Dilaudid. Informed patient he did receive the dose.
--- NOTE | 2021-01-31 12:12 | MHC.CM.PN ---
Patient has a bed at [facility].Patient is new to [facility].On the following day that Patient is admitted to [facility], [facility] will need to transport Patient to his new Suboxone Clinic for first dose and Intake appointment.R/T the holiday, this can not be done until 02/03/2021.Patient will receive a PICC when dc details are confirmed (history of leaving AMA).CM will follow.
[2021-01-31] MEDS: SODIUM CHLORIDE 0.9% IV (12:18)
[2021-01-31] MEDS: DAPTOMYCIN IV (12:18)
--- NOTE | 2021-01-31 13:56 | MHC.CLN ---
F/U DIET RX: REGULAR WITH ENSURE BID. SUPPLEMENT PROVIDES 700 KCAL, 23 G PROTEIN. INTAKE VARIABLE 25-100%. CURRENT DIET AND SUPPLEMENT APPROPRIATE. PER MD NOTE, AWAITING PICC. MONITOR PO INTAKE CLOSELY.
--- NOTE | 2021-01-31 17:27 | HO.PM.IMPN ---
Subjective Subjective Date of Service: 01/31/21 Interval History: seen and examined this morning follow up for MRSA bacteremia/peritonitis reporting persistent generalized abdominal pain, although appears comfortable thinks abdominal distension is about the same as yesterday Review of Systems Review of Systems: Yes all other systems are reviewed and are negative Constitutional Constitutional: Denies chills and Denies fever(s) Cardiovascular Cardiovascular: Denies chest pain Respiratory Respiratory: Denies cough Physical Exam Vital Signs: Vital Signs: Last Vital Signs Temp 98.5 F 01/31/21 15:16 Pulse 95 01/31/21 15:16 Resp 20 01/31/21 15:16 BP 134/73 01/31/21 15:16 Pulse Ox 95 01/31/21 15:16 Body Mass Index 19.2 Const: General: comfortable, no acute distress and ill appearing Nutritional Appearance: malnourished Orientation/consciousness: patient oriented x3 HENMT: Head: Yes normocephalic and Yes atraumatic Eyes: Sclerae: sclerae normal Pupils: Equal, round and reactive pupils present Resp: Effort & Inspection: normal respiratory effort, able to speak in complete sentences and no respiratory distress Cardio: Rate: regular rate Rhythm: regular rhythm GI: Other: softly distended, +bowel sounds; no guarding Neuro: General: patient oriented x3 Cranial nerves: Yes CN's II-XII intact bilaterally, Yes Equal, round and reactive pupils present and Yes Bilaterally intact EOM present Objective Data Active Medications Acetaminophen (Acetaminophen 325 Mg Tablet) 650 mg PO Q6H PRN PRN Reason: Pain, Mild (Pain Scale 1-3) Last Admin: 01/26/21 17:52 Dose: 650 mg Documented by: IRAM Docusate Sodium (Docusate Sodium 100 Mg Capsule) 100 mg PO BID [facility] Last Admin: 01/31/21 08:31 Dose: 100 mg Documented by: MIRA Furosemide (Furosemide 40 Mg Tablet) 40 mg PO BID@0900,1800 [facility]; Protocol Gabapentin (Gabapentin 100 Mg Capsule) 100 mg PO TID [facility] Last Admin: 01/31/21 16:13 Dose: 100 mg Documented by: RICHARD Hydromorphone HCl (Hydromorphone Hcl 1 Mg/Ml Syringe) 1 mg IVPUSH Q4H PRN; Protocol PRN Reason: Pain, Severe (Pain Scale 7-10) Last Admin: 01/31/21 12:32 Dose: 1 mg Documented by: RICHARD Daptomycin 470 mg/ Sodium (Chloride) 59.4 mls @ 100 mls/hr IV Q24H [facility] Last Infusion: 01/31/21 13:16 Dose: 0 mls/hr Documented by: RICHARD Lidocaine (Lidocaine 4 % Patch Adh..Patch) 1 patch TRANSDERMA DAILY [facility]; Protocol Last Admin: 01/31/21 08:31 Dose: 1 patch Documented by: MIRA Melatonin (Melatonin 3 Mg Tablet) 6 mg PO BEDTIME PRN PRN Reason: Insomnia Last Admin: 01/29/21 23:23 Dose: 6 mg Documented by: NELLIE Methadone HCl (Methadone Hcl 20 Mg/2 Ml Oral.Conc) 55 mg PO DAILY [facility] Last Admin: 01/31/21 08:32 Dose: 55 mg Documented by: MIRA Metoclopramide HCl (Metoclopramide Hcl 10 Mg/2 Ml Vial) 10 mg IVPUSH Q6H PRN PRN Reason: Nausea Morphine Sulfate (Morphine Sulfate 2 Mg/Ml Cartridge) 2 mg IVPUSH Q3H PRN; Protocol PRN Reason: Pain, Severe (Pain Scale 7-10) Last Admin: 01/31/21 05:52 Dose: 2 mg Documented by: MIRA Nicotine Polacrilex (Nicotine Polacrilex 2 Mg Gum) 2 mg BUCCAL Q1H PRN PRN Reason: nicotein Last Admin: 01/29/21 19:37 Dose: 2 mg Documented by: ELLE Oxycodone HCl (Oxycodone Hcl Immed Release 5 Mg Tablet) 5 mg PO Q6H PRN PRN Reason: Pain, Severe (Pain Scale 7-10) Last Admin: 01/28/21 22:58 Dose: 5 mg Documented by: MIRA Polyethylene Glycol (Polyethylene Glycol 3350 17 Gm Powd.Pack) 17 gm PO BIDPC [facility] Last Admin: 01/31/21 08:32 Dose: Not Given Documented by: MIRA Non-Admin Reason: Patient Refused Sodium Chloride (0.9 % Sodium Chloride Flush 3 Ml Syringe) 3 ml IVFLUSH QSHIFT [facility] Last Admin: 01/31/21 16:13 Dose: 3 ml Documented by: HO.KODOSOB Spironolactone (Spironolactone 25 Mg Tablet) 50 mg PO BID@0900,1800 [facility]; Protocol Labs CBC & Chem 7: 01/30/21 10:00 01/31/21 06:18 Labs: Laboratory Results - last 24 hr 01/31/21 06:18 Estim Creat Clear Calc 150.6 Estimated GFR > 60 Assessment and Plan (1) MRSA (methicillin resistant Staphylococcus aureus) septicemia: Status: Acute Assessment and Plan: 35yo M who uses injection heroin and was diagnosed with MRSA bacteremia in the ED 01/02/21 but could not be contacted to be called back admitted 01/15-01/17/21 with ascites growing MRSA [24435 WBCs, 86% PMNs] and persistent positive BCx growing MRSA but signed out AMA 01/17/21 re-admitted 01/17/21 and has been hospitalized since being treated for bacteremia and peritonitis 1. MRSA bacteremia, - Pt was initially on Vanco but was changed to to Dapto on 01/26 for better coverage of periotonitis - last blood cultures are negative but has peritoneal fluid was still positive for MRSA. - No endocarditis by MICHELLE. - PICC line ordered, placement still pending - continue IV dapto 2.MRSA peritonitis - continue on daptomycin 3. decompensated cirrhosis with rapidly reacculmulating fluid, - multiple taps since admission (7, 2, 3, and 1.4 liters). - continue medical management with Lasix (will change to po lasix) - Increase dose of aldactone 4. HCV reinfection [viral load 274k] - will need outpt treatment at hepatology center 5. septic pulmonary emboli - due to MRSA bacteremia; not hypoxic 6.leukocytosis - resolved - likely leukemoid reaction from infection, wbc improving, - Heme consult done, bcr/abl checked 7.Cellulitis of feet + hands - improving - on daptomycin- continue 8. L glenohumeral/bursal fluid collection - not clinically consistent with septic arthritis per Orthopedics - monitor 9. hypoNa - very mild, likely due to cirrhosis - follow bmp 10. LUQ hematoma- per Surgery, no intervention indicated. 11. ileus versus constipation multifactorial:? - most likely due to ascites, MRSA infection,? pain medication - pt denies having any constipation , moving his bowels , has gas - his pain is also poorly controlled at this time - spoke to addiction addiction medicine, will increase his dilaudid and add morphine for breakthrough pain ?last xray seems improving - will continue bowel regimen -if abdominal pain continues, consider repeat KUB 12. opioid use disorder - Addiction Medicine following - pt on 55 of methadone prior to admission plus uses heroin - His methadone was stopped few days ago due to concern of ileus but has now been resumed at 15. Discussed with addiction medicine given the poorly controlled abd pain - will continue methadone as above, dilaudid, morphine and oxy -monitor respiratory status closely 13. moderate protein-calorie malnutrition- continue supplements 14. VTE ppx - UFH ?dispo- needs PICC line and placement. discharge planned [facility] pending pICC placement. can't not d/c until Wednesday - suboxone clinic not open until then attending: Dr. Larkin Quality Stroke Does the patient have a stroke diagnosis?: No VTE Prior VTE?: No VTE Risk Level:: Medical - moderate - high VTE Device Contraindication: Treatment Not Indicated VTE Drug Contraindication: N/A - Med Ordered
[2021-01-31] MEDS: Spironolactone 25 MG TABLET 50 MG PO (17:31)
[2021-01-31] MEDS: Furosemide 40 MG TABLET PO (17:32)
[2021-01-31] MEDS: polyethylene glycoL 3350 17 GM POWD.PACK PO (17:32)
[2021-02-01] VITALS (14 sets, daily range): BP systolic 117–135; BP diastolic 72–78; PULSE 80–100; RESP 16–20; TEMP 36.4–37.4; O2SAT 91–98
[2021-02-01] MEDS: HYDROmorphone HCl 1 MG/ML SYRINGE IVPUSH ×5 (02:10→20:18)
[2021-02-01] MEDS: Morphine Sulfate 2 MG/ML CARTRIDGE IVPUSH ×5 (04:13→22:28)
[2021-02-01 05:54] LABS: Anion Gap 12 (12-20); Blood Urea Nitrogen 18 mg/dL (9-16); Calcium 8.7 mg/dL (8.4-10.2); Carbon Dioxide 27 mmol/L (22-29); Chloride 101 mmol/L (96-108); Creatinine Clr Calc Pharmacy 150.6; Estimated Glomerular Filt Rate > 60; Glucose Random 98 mg/dL (60-115); Potassium 4.3 mmol/L (3.3-5.1); Sodium 136 mmol/L (135-145)
[2021-02-01] MEDS: methADONE HCl 20 MG/2 ML ORAL.CONC 55 MG PO (08:47)
[2021-02-01] MEDS: Furosemide 40 MG TABLET PO ×2 (08:50→16:22)
[2021-02-01] MEDS: Gabapentin 100 MG CAPSULE PO ×3 (08:50→20:18)
[2021-02-01] MEDS: polyethylene glycoL 3350 17 GM POWD.PACK PO ×2 (08:50→16:22)
[2021-02-01] MEDS: Lidocaine 4 % Patch ADH..PATCH 1 PATCH TRANSDERMA (08:50)
[2021-02-01] MEDS: Docusate Sodium 100 MG CAPSULE PO ×2 (08:50→20:18)
[2021-02-01] MEDS: Spironolactone 25 MG TABLET 50 MG PO ×2 (08:51→16:22)
[2021-02-01] MEDS: 0.9 % Sodium Chloride Flush 3 ML SYRINGE IVFLUSH ×3 (08:52→20:18)
[2021-02-01] MEDS: SODIUM CHLORIDE 0.9% IV (12:07)
[2021-02-01] MEDS: DAPTOMYCIN IV (12:07)
--- NOTE | 2021-02-01 12:17 | P.PNIM_ITS ---
Subjective Subjective Date of Service: 02/01/21 Interval History: seen and examined this morning follow up for MRSA bacteremia/peritonitis reporting persistent generalized abdominal pain, although appears to be comfortable than before Review of Systems no fever abdominal pain Physical Exam Vital Signs: Vital Signs: Last Vital Signs Temp 97.5 F 02/01/21 08:00 Pulse 97 02/01/21 08:51 Resp 16 02/01/21 12:11 BP 129/72 02/01/21 08:51 Pulse Ox 98 02/01/21 08:00 Body Mass Index 19.2 Const: Other: General: AO X 3, looks uncomfortable Resp: CTA bilateral CVS: S1,S2,RRR GI: +BS, NT, slightly distended Skin: No rash Neuro: motor grossly intact Psych: appropriate affect Objective Data Active Medications Acetaminophen (Acetaminophen 325 Mg Tablet) 650 mg PO Q6H PRN PRN Reason: Pain, Mild (Pain Scale 1-3) Last Admin: 01/26/21 17:52 Dose: 650 mg Documented by: IRAM Docusate Sodium (Docusate Sodium 100 Mg Capsule) 100 mg PO BID [facility] Last Admin: 02/01/21 08:50 Dose: 100 mg Documented by: MENDEL Furosemide (Furosemide 40 Mg Tablet) 40 mg PO BID@0900,1800 [facility]; Protocol Last Admin: 02/01/21 08:50 Dose: 40 mg Documented by: MENDEL Gabapentin (Gabapentin 100 Mg Capsule) 100 mg PO TID [facility] Last Admin: 02/01/21 08:50 Dose: 100 mg Documented by: MENDEL Hydromorphone HCl (Hydromorphone Hcl 1 Mg/Ml Syringe) 1 mg IVPUSH Q4H PRN; Protocol PRN Reason: Pain, Severe (Pain Scale 7-10) Last Admin: 02/01/21 12:11 Dose: 1 mg Documented by: MENDEL Daptomycin 470 mg/ Sodium (Chloride) 59.4 mls @ 100 mls/hr IV Q24H [facility] Last Admin: 02/01/21 12:07 Dose: 100 mls/hr Documented by: MENDEL Lidocaine (Lidocaine 4 % Patch Adh..Patch) 1 patch TRANSDERMA DAILY [facility]; Protocol Last Admin: 02/01/21 08:50 Dose: 1 patch Documented by: MENDEL Melatonin (Melatonin 3 Mg Tablet) 6 mg PO BEDTIME PRN PRN Reason: Insomnia Last Admin: 01/29/21 23:23 Dose: 6 mg Documented by: NELLIE Methadone HCl (Methadone Hcl 20 Mg/2 Ml Oral.Conc) 55 mg PO DAILY [facility] Last Admin: 02/01/21 08:47 Dose: 55 mg Documented by: MENDEL Metoclopramide HCl (Metoclopramide Hcl 10 Mg/2 Ml Vial) 10 mg IVPUSH Q6H PRN PRN Reason: Nausea Morphine Sulfate (Morphine Sulfate 2 Mg/Ml Cartridge) 2 mg IVPUSH Q3H PRN; Protocol PRN Reason: Pain, Severe (Pain Scale 7-10) Last Admin: 02/01/21 08:51 Dose: 2 mg Documented by: MENDEL Nicotine Polacrilex (Nicotine Polacrilex 2 Mg Gum) 2 mg BUCCAL Q1H PRN PRN Reason: nicotein Last Admin: 01/29/21 19:37 Dose: 2 mg Documented by: ELLE Oxycodone HCl (Oxycodone Hcl Immed Release 5 Mg Tablet) 5 mg PO Q6H PRN PRN Reason: Pain, Severe (Pain Scale 7-10) Last Admin: 01/28/21 22:58 Dose: 5 mg Documented by: MIRA Polyethylene Glycol (Polyethylene Glycol 3350 17 Gm Powd.Pack) 17 gm PO BIDPC [facility] Last Admin: 02/01/21 08:50 Dose: 17 gm Documented by: MENDEL Sodium Chloride (0.9 % Sodium Chloride Flush 3 Ml Syringe) 3 ml IVFLUSH [facility] Last Admin: 02/01/21 08:52 Dose: 3 ml Documented by: MENDEL Spironolactone (Spironolactone 25 Mg Tablet) 50 mg PO BID@0900,1800 [facility]; Protocol Last Admin: 02/01/21 08:51 Dose: 50 mg Documented by: MENDEL Labs CBC & Chem 7: 01/30/21 10:00 02/01/21 05:02 Labs: Laboratory Results - last 24 hr 02/01/21 05:02 Anion Gap 12 Estim Creat Clear Calc 150.6 Estimated GFR > 60 Random Glucose 98 Calcium 8.7 Assessment and Plan (1) MRSA (methicillin resistant Staphylococcus aureus) septicemia: Status: Acute Assessment and Plan: 35 yo M who uses injection heroin and was diagnosed with MRSA bacteremia in the ED 01/02/21 but could not be contacted to be called back admitted 01/15-01/17/21 with ascites growing MRSA [77245 WBCs, 86% PMNs] and persistent positive BCx growing MRSA but signed out AMA 01/17/21 re-admitted 01/17/21 and has been hospitalized since being treated for bacteremia and peritonitis 1. MRSA bacteremia, - Pt was initially on Vanco but was changed to to Dapto on 01/26 for better coverage of periotonitis - last blood cultures are negative but has peritoneal fluid was still positive for MRSA. - No endocarditis by MICHELLE. - PICC line ordered, placement still pending - continue IV dapto 2.MRSA peritonitis - continue on daptomycin 3. decompensated cirrhosis with rapidly reacculmulating fluid, - multiple taps since admission (7, 2, 3, and 1.4 liters). - continue medical management with Lasix (will change to po lasix) - Increase dose of aldactone 4. HCV reinfection [viral load 274k] - will need outpt treatment at hepatology center 5. septic pulmonary emboli - due to MRSA bacteremia; not hypoxic 6.leukocytosis - resolved - likely leukemoid reaction from infection, wbc improving, - Heme consult done, bcr/abl checked 7.Cellulitis of feet + hands - improving - on daptomycin- continue 8. L glenohumeral/bursal fluid collection - not clinically consistent with septic arthritis per Orthopedics - monitor 9. hypoNa - very mild, likely due to cirrhosis - follow bmp 10. LUQ hematoma- per Surgery, no intervention indicated. 11. ileus versus constipation multifactorial:? - most likely due to ascites, MRSA infection,? pain medication - pt denies having any constipation , moving his bowels , has gas - his pain is also poorly controlled at this time - spoke to addiction addiction medicine, will increase his dilaudid and add morphine for breakthrough pain ?last xray seems improving - will continue bowel regimen -if abdominal pain continues, consider repeat KUB 12. opioid use disorder - Addiction Medicine following - pt on 55 of methadone prior to admission plus uses heroin - His methadone was stopped few days ago due to concern of ileus but has now been resumed at 15. Discussed with addiction medicine given the poorly controlled abd pain - will continue methadone as above, dilaudid, morphine and oxy -monitor respiratory status closely 13. moderate protein-calorie malnutrition- continue supplements 14. VTE ppx - UFH ?Dispo- needs PICC line and placement. [facility]. can't not d/c until Wednesday - suboxone clinic not open until then Quality Stroke Does the patient have a stroke diagnosis?: No VTE Prior VTE?: No VTE Risk Level:: Medical - moderate - high VTE Device Contraindication: Treatment Not Indicated VTE Drug Contraindication: N/A - Med Ordered
[2021-02-02] VITALS (15 sets, daily range): BP systolic 112–136; BP diastolic 66–83; PULSE 92–104; RESP 16–20; TEMP 37.2–37.5; O2SAT 92–95
[2021-02-02] MEDS: HYDROmorphone HCl 1 MG/ML SYRINGE IVPUSH ×3 (00:38→10:04)
[2021-02-02] MEDS: Morphine Sulfate 2 MG/ML CARTRIDGE IVPUSH ×2 (03:00→07:50)
[2021-02-02 06:53] LABS: Creatinine Clr Calc Pharmacy 140.5; Estimated Glomerular Filt Rate > 60
[2021-02-02] MEDS: 0.9 % Sodium Chloride Flush 3 ML SYRINGE IVFLUSH ×3 (07:53→21:55)
[2021-02-02] MEDS: Spironolactone 25 MG TABLET 50 MG PO ×2 (09:29→17:43)
[2021-02-02] MEDS: Furosemide 40 MG TABLET PO ×2 (09:30→17:44)
[2021-02-02] MEDS: Gabapentin 100 MG CAPSULE PO ×3 (09:31→21:52)
[2021-02-02] MEDS: Docusate Sodium 100 MG CAPSULE PO ×2 (09:31→21:52)
[2021-02-02] MEDS: polyethylene glycoL 3350 17 GM POWD.PACK PO ×2 (09:31→17:44)
[2021-02-02] MEDS: methADONE HCl 20 MG/2 ML ORAL.CONC 55 MG PO (09:32)
--- NOTE | 2021-02-02 10:12 | HO.PM.IMPN ---
Subjective Subjective Date of Service: 02/03/21 Interval History: seen and examined this morning follow up for MRSA bacteremia/peritonitis reporting persistent generalized abdominal pain, although appears to be comfortable than before Review of Systems no fever, abd pain is betteer Physical Exam Vital Signs: Vital Signs: Last Vital Signs Temp 99.2 F 02/02/21 08:00 Pulse 92 02/02/21 09:29 Resp 18 02/02/21 10:04 BP 113/72 02/02/21 09:29 Pulse Ox 93 02/02/21 08:00 Body Mass Index 19.2 Const: Other: General: AO X 3, looks uncomfortable Resp: CTA bilateral CVS: S1,S2,RRR GI: +BS, NT, slightly distended Skin: No rash Neuro: motor grossly intact Psych: appropriate affect Objective Data Active Medications Acetaminophen (Acetaminophen 325 Mg Tablet) 650 mg PO Q6H PRN PRN Reason: Pain, Mild (Pain Scale 1-3) Last Admin: 01/26/21 17:52 Dose: 650 mg Documented by: IRAM Docusate Sodium (Docusate Sodium 100 Mg Capsule) 100 mg PO BID [facility] Last Admin: 02/02/21 09:31 Dose: 100 mg Documented by: BHAVNA Furosemide (Furosemide 40 Mg Tablet) 40 mg PO BID@0900,1800 [facility]; Protocol Last Admin: 02/02/21 09:30 Dose: 40 mg Documented by: BHAVNA Gabapentin (Gabapentin 100 Mg Capsule) 100 mg PO TID [facility] Last Admin: 02/02/21 09:31 Dose: 100 mg Documented by: BHAVNA Hydromorphone HCl (Hydromorphone Hcl 1 Mg/Ml Syringe) 1 mg IVPUSH Q4H PRN; Protocol PRN Reason: Pain, Severe (Pain Scale 7-10) Last Admin: 02/02/21 10:04 Dose: 1 mg Documented by: BHAVNA Daptomycin 470 mg/ Sodium (Chloride) 59.4 mls @ 100 mls/hr IV Q24H [facility] Last Infusion: 02/01/21 13:29 Dose: 0 mls/hr Documented by: MENDEL Lidocaine (Lidocaine 4 % Patch Adh..Patch) 1 patch TRANSDERMA DAILY [facility]; Protocol Last Admin: 02/02/21 09:32 Dose: Not Given Documented by: BHAVNA Non-Admin Reason: Patient Refused Melatonin (Melatonin 3 Mg Tablet) 6 mg PO BEDTIME PRN PRN Reason: Insomnia Last Admin: 01/29/21 23:23 Dose: 6 mg Documented by: NELLIE Methadone HCl (Methadone Hcl 20 Mg/2 Ml Oral.Conc) 55 mg PO DAILY [facility] Last Admin: 02/02/21 09:32 Dose: 55 mg Documented by: BHAVNA Metoclopramide HCl (Metoclopramide Hcl 10 Mg/2 Ml Vial) 10 mg IVPUSH Q6H PRN PRN Reason: Nausea Morphine Sulfate (Morphine Sulfate 2 Mg/Ml Cartridge) 2 mg IVPUSH Q3H PRN; Protocol PRN Reason: Pain, Severe (Pain Scale 7-10) Last Admin: 02/02/21 07:50 Dose: 2 mg Documented by: BHAVNA Nicotine Polacrilex (Nicotine Polacrilex 2 Mg Gum) 2 mg BUCCAL Q1H PRN PRN Reason: nicotein Last Admin: 01/29/21 19:37 Dose: 2 mg Documented by: ELLE Oxycodone HCl (Oxycodone Hcl Immed Release 5 Mg Tablet) 5 mg PO Q6H PRN PRN Reason: Pain, Severe (Pain Scale 7-10) Last Admin: 01/28/21 22:58 Dose: 5 mg Documented by: MIRA Polyethylene Glycol (Polyethylene Glycol 3350 17 Gm Powd.Pack) [facility] Last Admin: 02/02/21 09:31 Dose: 17 gm Documented by: BHAVNA Sodium Chloride (0.9 % Sodium Chloride Flush 3 Ml Syringe) 3 ml IVFLUSH [facility] Last Admin: 02/02/21 07:53 Dose: 3 ml Documented by: BHAVNA Spironolactone (Spironolactone 25 Mg Tablet) 50 mg PO BID@0900,1800 [facility]; Protocol Last Admin: 02/02/21 09:29 Dose: 50 mg Documented by: BHAVNA Labs CBC & Chem 7: 01/30/21 10:00 02/03/21 05:30 Labs: Laboratory Results - last 24 hr 02/02/21 05:49 Estim Creat Clear Calc 140.5 Estimated GFR > 60 Assessment and Plan (1) MRSA (methicillin resistant Staphylococcus aureus) septicemia: Status: Acute Assessment and Plan: 35 yo M who uses injection heroin and was diagnosed with MRSA bacteremia in the ED 01/02/21 but could not be contacted to be called back admitted 01/15-01/17/21 with ascites growing MRSA [41529 WBCs, 86% PMNs] and persistent positive BCx growing MRSA but signed out AMA 01/17/21 re-admitted 01/17/21 and has been hospitalized since being treated for bacteremia and peritonitis 1. MRSA bacteremia, - Pt was initially on Vanco but was changed to to Dapto on 01/26 for better coverage of periotonitis - last blood cultures are negative but has peritoneal fluid was still positive for MRSA. - No endocarditis by MICHELLE. - PICC line ordered, placement still pending, probably tomorrow and then discharge - continue IV dapto 2.MRSA peritonitis - continue on daptomycin -DC IV pain meds 3. decompensated cirrhosis with rapidly reacculmulating fluid, - multiple taps since admission (7, 2, 3, and 1.4 liters). - continue medical management with Lasix (will change to po lasix) - Increase dose of aldactone 4. HCV reinfection [viral load 274k] - will need outpt treatment at hepatology center 5. septic pulmonary emboli - due to MRSA bacteremia; not hypoxic 6.leukocytosis - resolved - likely leukemoid reaction from infection, wbc improving, - Heme consult done, bcr/abl checked 7.Cellulitis of feet + hands - improving - on daptomycin- continue 8. L glenohumeral/bursal fluid collection - not clinically consistent with septic arthritis per Orthopedics - monitor 9. hypoNa - very mild, likely due to cirrhosis - follow bmp 10. LUQ hematoma- per Surgery, no intervention indicated. 11. ileus versus constipation multifactorial:? - most likely due to ascites, MRSA infection,? pain medication - pt denies having any constipation , moving his bowels , has gas - his pain is also poorly controlled at this time - spoke to addiction addiction medicine, will increase his dilaudid and add morphine for breakthrough pain ?last xray seems improving - will continue bowel regimen -if abdominal pain continues, consider repeat KUB 12. opioid use disorder - Addiction Medicine following - pt on 55 of methadone prior to admission plus uses heroin - His methadone was stopped few days ago due to concern of ileus but has now been resumed at 15. Discussed with addiction medicine given the poorly controlled abd pain - will continue methadone as above, dilaudid, morphine and oxy -monitor respiratory status closely 13. moderate protein-calorie malnutrition- continue supplements 14. VTE ppx - UFH ?Dispo- needs PICC line and placement. discharge planned [facility] pending pICC placement. can't not d/c until Wednesday - suboxone clinic not open until then Quality Stroke Does the patient have a stroke diagnosis?: No VTE Prior VTE?: No VTE Risk Level:: Medical - moderate - high VTE Device Contraindication: Treatment Not Indicated VTE Drug Contraindication: N/A - Med Ordered
[2021-02-02] MEDS: HYDROmorphone HCl 2 MG TABLET PO ×3 (13:56→21:52)
[2021-02-03] VITALS (7 sets, daily range): BP systolic 98–125; BP diastolic 54–74; PULSE 93–104; RESP 16–20; TEMP 36.1–37.3; O2SAT 93–96
[2021-02-03 06:39] LABS: Creatinine Clr Calc Pharmacy 156.2; Estimated Glomerular Filt Rate > 60
[2021-02-03] MEDS: 0.9 % Sodium Chloride Flush 3 ML SYRINGE IVFLUSH (10:26)
[2021-02-03] MEDS: Spironolactone 25 MG TABLET 50 MG PO (10:26)
[2021-02-03] MEDS: Furosemide 40 MG TABLET PO (10:26)
[2021-02-03] MEDS: Gabapentin 100 MG CAPSULE PO ×2 (10:27→16:14)
[2021-02-03] MEDS: methADONE HCl 20 MG/2 ML ORAL.CONC 55 MG PO (10:27)
--- NOTE | 2021-02-03 12:01 | MHC.CLN ---
F/U PO INTAKE POOR 25% DIET RX: REGULAR-APPROPRIATE PT RECEIVING ENSURE PLUS SUPPLEMENT TID TO PROVIDE EXTRA CALORIES SUPPLEMENT PROVIDES 1050 KCALS (48% EST KCAL NEEDS) AND 39 GRAMS PROTEIN (44% EST PROTEIN NEEDS) MONITOR PO INTAKE CLOSELY
--- NOTE | 2021-02-03 13:05 | P.DS_ITS ---
DS: Providers Provider Date of Service: 02/03/21 Date of admission: 01/17/21 20:36 Primary care physician: Alberto Cole MD Consults: 01/17/21 20:35 Addiction Medicine Routine Consulting Provider: Elvira Chavez Reason for consultation: PSA; heroin abuse Consult to Infectious Diseases Routine Consulting Provider: Jannet Zurita Reason for consultation: bacteremia 01/18/21 00:53 Consult to Hematology / Oncology Routine Consulting Provider: Aleida Springer Reason for consultation: severe leukocytosis 01/18/21 01:01 Consult to Gastroenterology Routine Consulting Provider: Keeley Terry Reason for consultation: cirrhosis/ascites 01/21/21 08:35 Consult to Infectious Diseases Routine Consulting Provider: Jannet Zurita Reason for consultation: MRSA bacteremia, MRSA peritonitis Has provider been notified: No 01/21/21 11:41 Consult to Gastroenterology Routine Consulting Provider: Keeley Terry Reason for consultation: mrsa bactermia/peritonitis , persistent ascitis , hx of hep C Has provider been notified: No 01/23/21 11:51 Consult to General Surgery Routine Consulting Provider: Almas Ventura Reason for consultation: early bowel obstruction vs Ielus Has provider been notified: No 01/26/21 10:31 Consult to Infectious Diseases Routine Consulting Provider: Loco To Reason for consultation: new dapto order DS: Diagnosis Discharge Diagnosis (1) MRSA (methicillin resistant Staphylococcus aureus) septicemia: Status: Acute DS: Summary Hospital Course Hospital Course: Hospital course: 35 year old male with history of IV drug use, heroin is drug of choice. He was diagnosed with MRSA bacteremia following an ED visit on 01/02/21 but could not be reached to come back for treatment. He ened up being admitted on 01/15 to 01/17/21 with ascites growing MRSA [74252 WBCs, 86% PMNs] and persistent positive Blood cultures growing MRSA, but he signed out AMA 01/17/21 only to be later that day 01/17/21 and has been hospitalized since and treated for MRSA peritonitis and MRSA sepsis and bacteremia, and recurrent 1. MRSA bacteremia, He had positive cultures on 01/02, 01/15, 01/17, Last culture from 01/20/21 has been negative. Also had MRSA positive in ascietes fluid on 01/17, and 01/20. He has was initially treated with IV vancomycin for both MRSA sepsis, bacteremia and periotonitis. He was switched to Daptomycin on 01/26/21 by ID and is recommended to be treated for 6 weeks, (33 more days from today). He had an Echocardiogram showing no evidence of endocarditis. He remains afebrile at this time. He had a PICC line inserted today. If he elect to leave AMA, should have PICC line removed. 2. MRSA peritonitis--Same management as above. 5. septic pulmonary emboli - due to MRSA bacteremia; not hypoxic.. management as above 3. Decompensated cirrhosis with rapidly reacculmulating fluid, - multiple taps since admission (7L on 01/20, 2L on 01/22, 3L on 01/24, and 0.7L on 01/28 liters). -For now he is to continue medical therapy with Lasix and Aldactone - Increase dose of aldactone 4. HCV reinfection [viral load 274k] - will need outpt treatment at hepatology center 6.leukocytosis-- likely leukemoid reaction from infection. This has resolved, 7.Cellulitis of feet + hands - improving - on daptomycin- continue..This is likely original source of MRSA 8. L glenohumeral/bursal fluid collection - not clinically consistent with septic arthritis per Orthopedics and to be monitored 9. Hyponatremia was mild and has resolved. Last sodium on 02/01 136 10. LUQ hematoma- per Surgery, no intervention indicated. 11. ileus versus constipation multifactorial:? - most likely due to ascites, MRSA infection,? pain medication - pt denies having any constipation , moving his bowels , has gas - his pain is also poorly controlled at this time. This seem to have clinically resolved. 12. Opioid use desorder--He has been evaluated by addiction medication and has been initiated on Methadone that has been titrated up to 55 mg daily, he will need to be enrolled in outpatient methadone clinic to continue methadone 13. moderate protein to severe protein =-calorie malnutrition- continue supplements Disposition: To short term rehab for less than 30 days Time Spent with Patient Time attestation: Total time spent providing and/or coordinating discharge services: Discharge coordination time: Greater than 30 minutes Quality: Stroke Does the patient have a stroke diagnosis?: No Physical Exam Vital Signs: Vital Signs: Last Vital Signs Temp 97 F 11/29/21 11:13 Pulse 96 02/03/21 11:13 Resp 16 02/03/21 11:13 BP 116/74 02/03/21 11:13 Pulse Ox 96 02/03/21 11:13 Body Mass Index 19.2 Const: Other: General: AO X 3, comfortable, emaciated Resp:? CTA bilateral CVS: S1,S2,RRR GI: +BS, NT, slightly distended Skin: No rash Neuro:? motor grossly intact Psych: appropriate affect DS: Data Data Completed and Pending Completed studies during hospitalization [Text1]: Pending at discharge 01/19/21 10:58 Cytology [PTH] Routine Procedures Drainage of Peritoneal Cavity, Percutaneous Approach (01/15/21) Insertion of Infusion Device into Right External Jugular Vein, Percutaneous Approach (01/15/21) Labs on day of discharge: Laboratory Results - last 24 hr 02/03/21 05:30 Creatinine 0.54 Estim Creat Clear Calc 156.2 Estimated GFR > 60 Discharge Plan Discharge Anticipated Discharge Date/Time: 02/03/21 12:48 Patient Disposition: Xfer [facility] Discharge Diagnosis: MRSA bacteremia Referrals: Alberto Cole MD [Primary Care Provider] - 1 Week Discharge Medications: New hydromorphone 2 mg Tablet 2 mg PO Q4H PRN (Reason: Pain, Severe (Pain Scale 7-10)) Qty: 20 RF: 0 methadone [Methadose] 10 mg/mL Concentrate 55 mg PO DAILY Qty: 30 RF: 0 melatonin 3 mg Tablet 6 mg PO BEDTIME PRN (Reason: Insomnia) Qty: 30 RF: 0 gabapentin 100 mg Capsule 100 mg PO TID Qty: 60 RF: 0 furosemide 40 mg Tablet 40 mg PO BID@0900,1800 Qty: 60 RF: 0 lidocaine [Lidocaine Pain Relief] 4 % Adhesive Patch,Medicated 1 patch transdermal DAILY Qty: 15 RF: 0 nicotine (polacrilex) 2 mg Gum 2 mg buccal Q1H PRN (Reason: nicotein) Qty: 30 RF: 0 docusate sodium 100 mg Capsule 100 mg PO BID Qty: 30 RF: 0 polyethylene glycol 3350 17 gram Powder In Packet 17 g PO BIDPC Qty: 30 RF: 0 spironolactone 25 mg Tablet 50 mg PO BID@0900,1800 Qty: 30 RF: 0 daptomycin 500 mg recon soln 470 mg IV Q24H Qty: 33 RF: 0 No Action No Known Home Meds RF: 0 Discharge Orders: Discharge Order (Routine); Ordered 02/03/21 Ordered By: Perez Barrios Diet: advance to usual diet Activity on Discharge: As tolerated Stand Alone Forms: Patient Portal Discharge page Care Plan Goals: Full recovery from bacteremia Health Concerns: MRSA bacteremia and sepsis, Cirrhosis, recurrent ascietes Plan of Treatment: Take Daptomycin for a total of 6 weeks, ending on To short term rehab for less than 30 days Need to enrol in methadone clinic to continue methadone, last dose in hospital 55 mg daily Assessment: as above
[2021-02-03 13:17] LABS: COVID-19 Test Negative (Negative); IDNOW Serial# 55D5AD1C
--- NOTE | 2021-02-03 14:18 | MHC.CM.PN ---
Patient has been medically cleared for dc to SNF.Patient will dc to [facility], today at 5PM, via [facility].
--- NOTE | 2021-02-03 15:23 | P.PICC_ITS ---
[facility] Diagnosis: [MRSA Bacteremia/Peritonitis] Indication: [intermediate antibiotics needed] Pertinent Labs: [Reviewed] Technique: Following informed consent including risks, benefits and alternatives and using sterile technique including cap and mask, sterile gown, glove and drape, the [right] arm was prepped and draped in the usual sterile fashion of full barrier technique with CHG. Following completion of [place] Protocol the skin and soft tissues were anesthetized with 1% Lidocaine plain. Using ultrasound guidance, [right brachial] vein access was obtained on first attempt. Over an 0.018 wire through peel-away sheath, a [4FR single lumen] PICC line was positioned. Catheter length is [37 CM] internal length, [0 CM] external length, for a total trimmed length of [37 CM]. The procedure was performed in [S272]. Tip verification was performed by Rishi Charles with [employer] 3CG. Tip located in SVC. Ultrasound was used to document vein patency and for needle entry. A formal ultrasound picture and cardiac rhythm strip was recorded. [employer] Superintendent has released the line for use and it is currently dressed with a StatLock, Tegaderm, and CHG disc. Verification has been performed for blood return and line patency. Arm Circumference: [19 CM] Equipment: [Platypi Power PICC Solo] Catheter Type: [4FR single lumen PICC] Lot #: [[id number]]
[2021-02-03] MEDS: SODIUM CHLORIDE 0.9% IV (16:08)
[2021-02-03] MEDS: DAPTOMYCIN IV (16:08)
== END 2021-02-03 17:43 | disposition skilled nursing facility (03) | DRG 248 ==
LOC: HO.ED 20:44 → HO.EDOVER 20:47 → HO.IMC 01-18 14:04
PROVIDERS: Family Medicine; Hospitalist; Internal Medicine; Internal Medicine Medical Oncology; Radiology Diagnostic Radiology; Admitting Provider Hospitalist; Emergency Provider Internal Medicine; PCP Internal Medicine; Visit Provider Internal Medicine
PROC: 0W9G3ZZ Drainage of Peritoneal Cavity, Percutaneous Approach (ICD-10-PCS; principal; 2021-01-20 12:00)
DX: K65.2 Spontaneous bacterial peritonitis (principal); I26.90 Septic pulmonary embolism without acute cor pulmonale; I81 Portal vein thrombosis; A41.9 Sepsis, unspecified organism; E44.0 Moderate protein-calorie malnutrition; E87.1 Hypo-osmolality and hyponatremia; K56.0 Paralytic ileus; L03.115 Cellulitis of right lower limb; R18.8 Other ascites; K74.60 Unspecified cirrhosis of liver; L03.116 Cellulitis of left lower limb; F17.210 Nicotine dependence, cigarettes, uncomplicated; D72.829 Elevated white blood cell count, unspecified; B19.20 Unspecified viral hepatitis C without hepatic coma; Z71.6 Tobacco abuse counseling; F10.20 Alcohol dependence, uncomplicated; M25.412 Effusion, left shoulder; K59.00 Constipation, unspecified; F11.20 Opioid dependence, uncomplicated; B95.62 Methicillin resistant Staphylococcus aureus infection as the cause of diseases classified elsewhere; Z68.1 Body mass index [BMI] 19.9 or less, adult; L03.114 Cellulitis of left upper limb; L03.113 Cellulitis of right upper limb; Z20.822 Contact with and (suspected) exposure to COVID-19; Z79.899 Other long term (current) drug therapy
CPT/HCPCS: 36415; 36573; 49083; 71045; 74018; 74176; 80048; 80053; 80076; 80202; 80307; 81206; 81207; 82140; 82565; 83605; 83735; 84478; 85007; 85025; 85027; 85610; 87040; 87070; 87073; 87077; 87186; 87205; 87635; 88112; 88305; 89051; 93975; 96361; 96365; 99285; C1729; C1751; J0878; J1170; J1885; J1940; J2270; J2543; J3370; J3475; P9047

== ENCOUNTER 2021-03-17 22:40 | Emergency (ER) | payer OTHER, SELFPAY ==
[2021-03-17 23:00] VITALS: BP 111/57; PULSE 114; RESP 16; TEMP 36.6; O2SAT 96; BMI 17.7
[2021-03-17 23:33] LABS: COVID-19 Test Negative (Negative); IDNOW Serial# 9DD0AD1C
[2021-03-18 02:46] LABS: MANUAL DIFF FLAG NO
[2021-03-18 02:51] LABS: Basophils Percent Auto 0.3 % (0-2); Eosinophils Absolute Auto 0.2 X10*3/uL (0.0-0.4); Eosinophils Percent Auto 2.6 % (0-4); Hematocrit 30.2 % (42.0-52.0); Hemoglobin 9.5 g/dl (14.0-18.0); Imm Gran Abs Auto 0.03 X10*3/uL (0.00-0.03); Imm Gran Pct Auto 0.3 % (0.0-0.4); Lymphocytes Percent Auto 20.7 % (20-40); Mean Corpuscular HGB Conc 31.5 g/dl (31.0-36.0); Mean Corpuscular Hemoglobin 29.8 pg (27.0-33.0); Mean Corpuscular Volume 94.7 fL (80.0-98.0); Mean Platelet Volume 8.5 fL (9.4-12.4); Monocytes Absolute Auto 0.9 X10*3/uL (0.1-1.2); Monocytes Percent Auto 9.7 % (2-11); Neutrophils Absolute Auto 6.3 x10*3/uL (2.0-8.3); Neutrophils Percent Auto 66.4 % (45-73); Platelet Count 181 X10*3/uL (160-400); Red Blood Count 3.19 X10*6/uL (4.60-5.80); White Blood Count 9.4 X10*3/uL (4.8-10.8)
[2021-03-18 02:59] LABS: INTERNATIONAL NORM RATIO 1.3 (0.9-1.1); Prothrombin Time 14.6 SEC (9.9-13.0)
[2021-03-18 03:26] LABS: Alanine Aminotransferase 16 U/L (0-40); Albumin Level 2.7 g/dL (3.5-5.0); Alkaline Phosphatase 57 U/L (39-117); Anion Gap 9 (12-20); Aspartate Amino Transferase 27 U/L (5-37); Bilirubin Total 0.6 mg/dL (0.0-1.0); Blood Urea Nitrogen 15 mg/dL (9-16); Calcium 8.5 mg/dL (8.4-10.2); Carbon Dioxide 26 mmol/L (22-29); Chloride 107 mmol/L (96-108); Creatinine Clr Calc Pharmacy 121.6; Estimated Glomerular Filt Rate > 60; Glucose Random 134 mg/dL (60-115); Potassium 3.4 mmol/L (3.3-5.1); Sodium 139 mmol/L (135-145)
[2021-03-18 04:01] LABS: Amphetamine Screen Urine Not Detected (Not Detect); Barbiturates, Urine Not Detected (Not Detect); Benzodiazepines Screen Urine Not Detected (Not Detect); Cannabinoid Screen Urine POSITIVE (Not Detect); Cocaine Screen Urine POSITIVE (Not Detect); Fentanyl, urine POSITIVE (Not Detect); Opiate Screen Urine POSITIVE (Not Detect); Phencyclidine Screen Urine Not Detected (Not Detect)
--- NOTE | 2021-03-18 07:36 | ED_ITS ---
HPI - Medical Clearance General Chief complaint: Medical Clearance Stated complaint: [place] [facility] [place] [facility]? Time Seen by Provider: 03/17/21 22:52 Source: patient Mode of arrival: ambulatory Limitations: no limitations History of Present Illness HPI Narrative: 35 YO WITH END STAGE LIVER DISEASE HERE BECAUSE IS REQUESTING NH PLACEMENT,HE STATES THAT [facility] AND LEFT FOR MISUNDERSTANDING WITH THE [facility] STAFF,DENIES FEVER,CHILLS,VOMITING,ABDOMINAL PAIN.HE HAS HX IVDA ,HX OF MRSA BACTEREMIA,HX OF LEFT CHEST ABSCESS MD complaint: medical clearance requested Onset (ago): day(s) Compliant with Home Medications: Yes Related Information Previous Rx's Medication Instructions Recorded daptomycin 500 mg intravenous 470 mg IV Q24H #33 ea 02/03/21 solution docusate sodium 100 mg capsule 100 mg PO BID #30 cap 02/03/21 furosemide 40 mg tablet 40 mg PO BID@0900,1800 #60 tab 02/03/21 gabapentin 100 mg capsule 100 mg PO TID #60 cap 02/03/21 hydromorphone 2 mg tablet 2 mg PO Q4H PRN #20 tab 02/03/21 lidocaine 4 % topical patch 1 patch TRANSDERMAL DAILY #15 ea 02/03/21 (Lidocaine Pain Relief) melatonin 3 mg tablet 6 mg PO BEDTIME PRN #30 tab 02/03/21 methadone 10 mg/mL oral 55 mg (5.5 mL) PO DAILY #30 ml 02/03/21 concentrate (Methadose) nicotine (polacrilex) 2 mg gum 2 mg BUCCAL Q1H PRN #30 ea 02/03/21 polyethylene glycol 3350 17 gram 17 g PO BIDPC #30 ea 02/03/21 oral powder packet spironolactone 25 mg tablet 50 mg PO BID@0900,1800 #30 tab 02/03/21 Allergies Allergy/AdvReac Type Severity Reaction Status Date / Time No Known Allergies Allergy Verified 03/17/21 23:07 [No Known Allergies*] Review of Systems Review of Systems: Yes all other systems are reviewed and are negative Constitutional: Constitutional: Denies chills and Denies fever(s) ENT: Reports as per HPI Cardiovascular: Cardiovascular: Denies chest pain Respiratory: Respiratory: Reports no additional respiratory complaints Gastrointestinal: Gastrointestinal: Denies abdominal pain Musculoskeletal: Musculoskeletal: Reports no additional musculoskeletal complaints [facility] Past Medical History Medical History Ascites Ascites Cirrhosis Hematoma and contusion IV drug user Septic pulmonary embolism Social History Social History Household Members: Other Housing: Homeless Do you presently have visiting nurse or other home services: No Alcohol intake: current Alcohol intake frequency: 3 or more drinks per day Alcohol type: beer Patient Tobacco Use Status: Never used Tobacco Tobacco use type: Cigarette e-Cigarette/Vaping Use: Never Used Substance Use Type: Crack/Cocaine Advance Directives: No Advance Directives Information Provided: Yes service: No Physical Exam Vital Signs: Vital Signs: Last Vital Signs Temp 98.3 F 03/18/21 12:35 Pulse 80 03/18/21 12:35 Resp 15 03/18/21 12:35 BP 96/51 L 03/18/21 12:35 Pulse Ox 97 03/18/21 12:35 BMI result Body Mass Index 17.7 LOOKS WELL,NON TOXIC ,NO DISTRESS,AFEBRILE, NORMOTENSIVE Const: General: cooperative and comfortable Nutritional Appearance: average body habitus Limitations: no limitations HENMT: Head: Yes normal to inspection Face and sinus: Yes normal facial exam Mouth: Normal oral and palatal mucosa present Neck: Neck: Yes normal visual inspection, Yes full ROM and Yes no lymphadenopathy Thyroid: Thyroid normal Chest: Other: THERE IS A SMALL WOUND LEFT CHEST WALL 1 CM IN LENGTH Chest palpation & inspection: normal inspection of the chest Resp: Effort & Inspection: normal respiratory effort Auscultation: clear to auscultation bilaterally Cardio: Jugular venous distension: no JVD Rate: regular rate Rhythm: regular rhythm GI: Inspection: Yes normal to inspection Palpation (GI): Soft to palpation, not firm and nontender Course Reevaluation(s) Reevaluation #1: seen by PT did well,seen by case aide as well unable to place the pt Reevaluation #2: We still waiting case aide dispo Reevaluation #3: Pt eloped MDM - Medical Clearance Lab Data Result diagrams: 03/18/21 02:42 03/18/21 02:42 Labs: Lab Results 03/17/21 03/18/21 03/18/21 Range/Units 23:09 02:42 02:42 WBC 9.4 (4.8-10.8) X10*3/uL RBC 3.19 L (4.60-5.80) X10*6/uL Hgb 9.5 L (14.0-18.0) g/dl Hct 30.2 L (42.0-52.0) % MCV 94.7 (80.0-98.0) fL MCH 29.8 (27.0-33.0) pg MCHC 31.5 (31.0-36.0) g/dl RDW 18.0 H (11.0-16.0) % Plt Count 181 D (160-400) X10*3/uL MPV 8.5 L (9.4-12.4) fL Immature Gran % (Auto) 0.3 (0.0-0.4) % Neut % (Auto) 66.4 (45-73) % Lymph % (Auto) 20.7 (20-40) % [place] % (Auto) 9.7 (2-11) % Eos % (Auto) 2.6 (0-4) % Baso % (Auto) 0.3 (0-2) % Lymph # (Auto) 2.0 (1.2-4.9) X10*3/uL [place] # (Auto) 0.9 (0.1-1.2) X10*3/uL Eos # (Auto) 0.2 (0.0-0.4) X10*3/uL Baso # (Auto) 0.0 (0.0-0.2) X10*3/uL Abs Immat Gran (auto) 0.03 (0.00-0.03) X10*3/uL Absolute Neuts (auto) 6.3 (2.0-8.3) x10*3/uL Absolute Nucleated RBC 0.000 (0.0-0.012) X10*3/uL Nucleated RBC % (auto) 0.0 (0.0-0.2) /100WBC PT 14.6 H (9.9-13.0) SEC INR 1.3 H (0.9-1.1) Sodium (135-145) mmol/L Potassium (3.3-5.1) mmol/L Chloride (96-108) mmol/L Carbon Dioxide (22-29) mmol/L Anion Gap (12-20) BUN (9-16) mg/dL Creatinine (0.5-1.4) mg/dL Estim Creat Clear Calc Estimated GFR Random Glucose (60-115) mg/dL Calcium (8.4-10.2) mg/dL Total Bilirubin (0.0-1.0) mg/dL AST (5-37) U/L ALT (0-40) U/L Alkaline Phosphatase (39-117) U/L Total Protein (6.5-8.0) g/dL Albumin (3.5-5.0) g/dL Urine Opiates Screen (Not Detect) Urine Fentanyl Screen (Not Detect) Ur Barbiturates Screen (Not Detect) Ur Phencyclidine Scrn (Not Detect) Ur Amphetamines Screen (Not Detect) U Benzodiazepines Scrn (Not Detect) Urine Cocaine Screen (Not Detect) U Marijuana (THC) Screen (Not Detect) COVID-19 (TAMRA) Negative (Negative) COVID-19 Clin Com See Note 03/18/21 03/18/21 Range/Units 02:42 03:40 WBC (4.8-10.8) X10*3/uL RBC (4.60-5.80) X10*6/uL Hgb (14.0-18.0) g/dl Hct (42.0-52.0) % MCV (80.0-98.0) fL MCH (27.0-33.0) pg MCHC (31.0-36.0) g/dl RDW (11.0-16.0) % Plt Count (160-400) X10*3/uL MPV (9.4-12.4) fL Immature Gran % (Auto) (0.0-0.4) % Neut % (Auto) (45-73) % Lymph % (Auto) (20-40) % [place] % (Auto) (2-11) % Eos % (Auto) (0-4) % Baso % (Auto) (0-2) % Lymph # (Auto) (1.2-4.9) X10*3/uL [place] # (Auto) (0.1-1.2) X10*3/uL Eos # (Auto) (0.0-0.4) X10*3/uL Baso # (Auto) (0.0-0.2) X10*3/uL Abs Immat Gran (auto) (0.00-0.03) X10*3/uL Absolute Neuts (auto) (2.0-8.3) x10*3/uL Absolute Nucleated RBC (0.0-0.012) X10*3/uL Nucleated RBC % (auto) (0.0-0.2) /100WBC PT (9.9-13.0) SEC INR (0.9-1.1) Sodium 139 (135-145) mmol/L Potassium 3.4 D (3.3-5.1) mmol/L Chloride 107 (96-108) mmol/L Carbon Dioxide 26 (22-29) mmol/L Anion Gap 9 L (12-20) BUN 15 (9-16) mg/dL Creatinine 0.64 (0.5-1.4) mg/dL Estim Creat Clear Calc 121.6 Estimated GFR > 60 Random Glucose 134 H D (60-115) mg/dL Calcium 8.5 (8.4-10.2) mg/dL Total Bilirubin 0.6 (0.0-1.0) mg/dL AST 27 (5-37) U/L ALT 16 (0-40) U/L Alkaline Phosphatase 57 D (39-117) U/L Total Protein 7.0 (6.5-8.0) g/dL Albumin 2.7 L D (3.5-5.0) g/dL Urine Opiates Screen POSITIVE H (Not Detect) Urine Fentanyl Screen POSITIVE H (Not Detect) Ur Barbiturates Screen Not Detected (Not Detect) Ur Phencyclidine Scrn Not Detected (Not Detect) Ur Amphetamines Screen Not Detected (Not Detect) U Benzodiazepines Scrn Not Detected (Not Detect) Urine Cocaine Screen POSITIVE H (Not Detect) U Marijuana (THC) Screen POSITIVE H (Not Detect) COVID-19 (TAMRA) (Negative) COVID-19 Clin Com Discharge Plan Discharge Clinical Impression: Liver disease, chronic, Drug abuse, Homelessness Patient Disposition: Elopement Instructions: Cirrhosis (ED) Prescriptions: No Action daptomycin 500 mg recon soln 470 mg IV Q24H Qty: 33 RF: 0 furosemide 40 mg Tablet 40 mg PO BID@0900,1800 Qty: 60 RF: 0 lidocaine [Lidocaine Pain Relief] 4 % Adhesive Patch,Medicated 1 patch transdermal DAILY Qty: 15 RF: 0 polyethylene glycol 3350 17 gram Powder In Packet 17 g PO BIDPC Qty: 30 RF: 0 nicotine (polacrilex) 2 mg Gum 2 mg buccal Q1H PRN (Reason: nicotein) Qty: 30 RF: 0 melatonin 3 mg Tablet 6 mg PO BEDTIME PRN (Reason: Insomnia) Qty: 30 RF: 0 spironolactone 25 mg Tablet 50 mg PO BID@0900,1800 Qty: 30 RF: 0 hydromorphone 2 mg Tablet 2 mg PO Q4H PRN (Reason: Pain, Severe (Pain Scale 7-10)) Qty: 20 RF: 0 docusate sodium 100 mg Capsule 100 mg PO BID Qty: 30 RF: 0 gabapentin 100 mg Capsule 100 mg PO TID Qty: 60 RF: 0 methadone [Methadose] 10 mg/mL Concentrate 55 mg PO DAILY Qty: 30 RF: 0
[2021-03-18 08:51] VITALS: BP 109/63; PULSE 88; RESP 20; TEMP 36.9; O2SAT 99
[2021-03-18 12:35] VITALS: BP 96/51; PULSE 80; RESP 15; TEMP 36.8; O2SAT 97
--- NOTE | 2021-03-18 13:09 | MHC.RECOVSUP ---
? Reason for consult:Recovery support o Current location: [facility] o Identified substance use concern:Heroin - Seeking ATS (detox) - Support ? Intervention: o Community resources provided o Harm reduction discussion ? Plan: o Patient to follow up with [facility] after discharge ? Additional information: Patient serching for NH bed. refusing detox, gave patient community resources.
--- NOTE | 2021-03-18 13:14 | MHC.CM.ED ---
Addendum entered by Sharlene Lopez 03/18/21 14:43: Primary liaison for [facility] is out due to Covid. There is a liaison covering. Still waiting to hear if they can accept patient back. Addendum entered by Sharlene Lopez 03/18/21 14:39: Received ER documentation from [facility]. Patient left there AMA. Original Note: Received case management consult from Dr Palacios. Patient came to the ER looking for detention placement. 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 Patient left the facilities on 03/08 in order to meet up with a female friend. Patient was considered AMA. Patient went to [facility] ER on 03/15 and was discharged 03/16. T/W is in the process of obtaining a copy of ER documentation. Referral has been made to [facility]. They're in the process of reviewing to see if they can accept patient back. Physical therapy eval completed. No services anticipated to be needed. Elvira Chavez met with patient. Patient hasn't received Methadone in about a week. Patient was placed in results pending until [facility] is able to determine if they're able to accept patient back. Continue to monitor for d/c needs.
--- NOTE | 2021-03-18 15:30 | MHC.CM.ED ---
Received notification from Dr Palacios and Elisabeth VARGAS that patient eloped from ER.
--- NOTE | 2021-03-18 16:04 | PC.NURSE ---
tech went in to do vitals, patient not in room, all belongings gone, not in bathrooms. patient eloped. MD and CM made aware.
--- NOTE | 2021-03-18 16:27 | HO.ADDICT_ITS ---
History of Present Illness Date of Service: 03/18/2021 Chief Complaint: seeking placement in senior care? Reason for Consult: polysubstance use Requesting physician: Raciel Palacios Discussed with referring provider: No Sources of Information: patient interviewed and chart reviewed HPI Narrative: Patient is a 35 year old male with opioid use disorder and liver disease. Very well known to this commercial underwriter via recent [place] [facility] [place] to [place] and continued OUD treatment with methadone. Per chart review, patient presented to [facility] [place] requested assistance iwth being placed back at SNF (he reportedly left AMA on 03/08) Patient seen in room 19 of main ED> He was awake, alert, and somewhat engaged in interview. He had a very anxious affect and focued on getting back into [facility], I'm not sure why it's taking so long . Patient with limited insight regarding 10+ days he has been been out of the facility and minimially engaged regarding what occured durig that time. He did not appear to be in acute opioid withdrawal and denied any withdrawal sx to this commercial underwriter. He reports he has not had any methadone in over a week and states that while at [facility] he was receiving 20mg TID. UDS + for fentanly and cocaine. When asked if he wante dot restart methadone, he replied I don't know. I don't have anywhere to live This commercial underwriter agreed to come back and check in with patient later in the afternoon to re-evaluate, and at that time it was reported patient had eloped from the ED Past Psychiatric History: Not reviewed Review of Systems Constitutional: Reports as per HPI Diagnostics Vital Signs (24Hr): Vital Signs - 24 hr 03/17/21 23:00 03/18/21 08:51 03/18/21 12:35 Temperature 97.8 F 98.5 F 98.3 F Pulse Rate 114 H 88 80 Respiratory Rate 16 20 15 Blood Pressure 111/57 L 109/63 96/51 L Pulse Oximetry 96 99 97 BMI result Body Mass Index 17.7 Labs Results: 03/18/21 02:42 03/18/21 02:42 Labs: Laboratory Results - last 48 hr 03/17/21 03/18/21 03/18/21 23:09 02:42 02:42 WBC 9.4 RBC 3.19 L Hgb 9.5 L Hct 30.2 L MCV 94.7 MCH 29.8 MCHC 31.5 RDW 18.0 H Plt Count 181 D MPV 8.5 L Immature Gran % (Auto) 0.3 Neut % (Auto) 66.4 Lymph % (Auto) 20.7 [place] % (Auto) 9.7 Eos % (Auto) 2.6 Baso % (Auto) 0.3 Lymph # (Auto) 2.0 [place] # (Auto) 0.9 Eos # (Auto) 0.2 Baso # (Auto) 0.0 Abs Immat Gran (auto) 0.03 Absolute Neuts (auto) 6.3 Absolute Nucleated RBC 0.000 Nucleated RBC % (auto) 0.0 PT 14.6 H INR 1.3 H Sodium Potassium Chloride Carbon Dioxide Anion Gap BUN Creatinine Estim Creat Clear Calc Estimated GFR Random Glucose Calcium Total Bilirubin AST ALT Alkaline Phosphatase Total Protein Albumin Urine Opiates Screen Urine Fentanyl Screen Ur Barbiturates Screen Ur Phencyclidine Scrn Ur Amphetamines Screen U Benzodiazepines Scrn Urine Cocaine Screen U Marijuana (THC) Screen COVID-19 (TAMRA) Negative COVID-19 Clin Com See Note 03/18/21 03/18/21 02:42 03:40 WBC RBC Hgb Hct MCV MCH MCHC RDW Plt Count MPV Immature Gran % (Auto) Neut % (Auto) Lymph % (Auto) [place] % (Auto) Eos % (Auto) Baso % (Auto) Lymph # (Auto) [place] # (Auto) Eos # (Auto) Baso # (Auto) Abs Immat Gran (auto) Absolute Neuts (auto) Absolute Nucleated RBC Nucleated RBC % (auto) PT INR Sodium 139 Potassium 3.4 D Chloride 107 Carbon Dioxide 26 Anion Gap 9 L BUN 15 Creatinine 0.64 Estim Creat Clear Calc 121.6 Estimated GFR > 60 Random Glucose 134 H D Calcium 8.5 Total Bilirubin 0.6 AST 27 ALT 16 Alkaline Phosphatase 57 D Total Protein 7.0 Albumin 2.7 L D Urine Opiates Screen POSITIVE H Urine Fentanyl Screen POSITIVE H Ur Barbiturates Screen Not Detected Ur Phencyclidine Scrn Not Detected Ur Amphetamines Screen Not Detected U Benzodiazepines Scrn Not Detected Urine Cocaine Screen POSITIVE H U Marijuana (THC) Screen POSITIVE H COVID-19 (TAMRA) COVID-19 Clin Com Mental Status Exam Mental Status Exam Patient Appearance: Appropriate Patient Orientation: Person, Place, Time and Situation Level of Consciousness: Awake and Alert Patient Behavior: Guarded and Anxious Mood Description: Anxious Affect Description: Anxious Judgement: Poor (limited) Medications Allergies Allergies Allergy/AdvReac Type Severity Reaction Status Date / Time No Known Allergies Allergy Verified 03/17/21 23:07 [No Known Allergies*] Assessment & Plan Assessment & Plan (1) Opioid use disorder: Status: Acute Code(s): F11.90 - Opioid use, unspecified, uncomplicated I spent ___20___ minutes with the patient and/or on the patient floor today, greater than?50% of which was spent counseling/coordinating care. PMF Past Medical History Medical History Ascites Ascites Cirrhosis Hematoma and contusion IV drug user Septic pulmonary embolism Social History Social History Household Members: Other Housing: Homeless Do you presently have visiting nurse or other home services: No Alcohol intake: current Alcohol intake frequency: 3 or more drinks per day Alcohol type: beer Patient Tobacco Use Status: Never used Tobacco Tobacco use type: Cigarette e-Cigarette/Vaping Use: Never Used Substance Use Type: Crack/Cocaine Advance Directives: No Advance Directives Information Provided: Yes service: No
== END 2021-03-18 16:05 | disposition left against medical advice (07) ==
PROVIDERS: Emergency Provider Emergency Medicine; PCP Internal Medicine
DX: K74.60 Unspecified cirrhosis of liver (principal); F11.20 Opioid dependence, uncomplicated; Z20.822 Contact with and (suspected) exposure to COVID-19; Z59.00 Homelessness unspecified; F14.10 Cocaine abuse, uncomplicated; F12.10 Cannabis abuse, uncomplicated; B19.20 Unspecified viral hepatitis C without hepatic coma; F17.200 Nicotine dependence, unspecified, uncomplicated
CPT/HCPCS: 36415; 80053; 80307; 85025; 85610; 87635; 97162; 99283; 99284

== ENCOUNTER 2021-03-22 06:05 | Emergency (ER) | payer OTHER, SELFPAY ==
[2021-03-22 06:13] VITALS: BP 144/69; PULSE 74; O2SAT 99
[2021-03-22 06:32] VITALS: BP 118/62; PULSE 80; RESP 24; TEMP 36; O2SAT 100; BMI 16.2
--- NOTE | 2021-03-22 09:55 | ED_ITS ---
HPI - General Adult General Chief complaint: Skin/Abscess/Foreign Body Stated complaint: L side pain/cold Time Seen by Provider: 03/22/21 09:54 Source: patient Mode of arrival: EMS Limitations: no limitations and other (Patient is a poor historian) History of Present Illness HPI narrative: 35-year-old male past medical history significant for opiate use disorder, cirrhosis, homelessness, presents to the emergency department via ambulance with a complaint of I am cold . Patient is homeless and he has been going from emergency room to emergency room because he is cold and it is too cold for him to stay outside prior upon his arrival I asked him if anything is bothering him he says no. I asked him Why are you in the emergency department today? And his response was Why you here, I just want to sleep . Denies nausea, vomiting, chest pain, shortness of breath, fevers, chills, headache, dizziness, abdominal pain. Each time I tried to speak to patient he tells me he just wants to sleep. When I ask what he wants done he tells me nothing. Onset (ago): day(s) (1) Radiation: non-radiation Relieving factors: other (Being inside and warm place) Exacerbating factors: other (Being outside in the cold) Associated symptoms: denies other symptoms Treatments prior to arrival: none Related Data Previous Rx's Medication Instructions Recorded daptomycin 500 mg intravenous 470 mg IV Q24H #33 ea 02/03/21 solution docusate sodium 100 mg capsule 100 mg PO BID #30 cap 02/03/21 furosemide 40 mg tablet 40 mg PO BID@0900,1800 #60 tab 02/03/21 gabapentin 100 mg capsule 100 mg PO TID #60 cap 02/03/21 hydromorphone 2 mg tablet 2 mg PO Q4H PRN #20 tab 02/03/21 lidocaine 4 % topical patch 1 patch TRANSDERMAL DAILY #15 ea 02/03/21 (Lidocaine Pain Relief) melatonin 3 mg tablet 6 mg PO BEDTIME PRN #30 tab 02/03/21 methadone 10 mg/mL oral 55 mg (5.5 mL) PO DAILY #30 ml 02/03/21 concentrate (Methadose) nicotine (polacrilex) 2 mg gum 2 mg BUCCAL Q1H PRN #30 ea 02/03/21 polyethylene glycol 3350 17 gram 17 g PO BIDPC #30 ea 02/03/21 oral powder packet spironolactone 25 mg tablet 50 mg PO BID@0900,1800 #30 tab 02/03/21 cephalexin 500 mg tablet 500 mg PO Q6H 10 Days #40 tab 03/22/21 doxycycline hyclate 100 mg capsule 100 mg PO BID 10 Days #20 cap 03/22/21 Allergies Allergy/AdvReac Type Severity Reaction Status Date / Time No Known Allergies Allergy Verified 03/22/21 06:36 [No Known Allergies*] Review of Systems Review of Systems: Constitutional : No Fever, No Chills ENT/Mouth : No sore throat, No Rhinorrhea Eyes: No Eye Pain, No Swelling, No Redness Cardiovascular : No Chest Pain, No SOB Respiratory : No Cough, No Sputum Gastrointestinal : No Nausea, No Vomiting, No Diarrhea, No abdominal Pain Genitourinary : No Dysuria, No Hematuria Musculoskeletal : No joint pain, No Myalgias, No Joint Swelling Skin : No Skin Lesions, No rash Neuro : No Weakness, No Numbness Psych : No Anxiety, No Depression, No SI/HI/AH/VH All other systems reviewed and are negative Yes all other systems are reviewed and are negative [facility] Past Medical History Attestation statement: The following information was validated with the patient. Source: old records reviewed and nursing notes reviewed Medical History Ascites Ascites Cirrhosis Hematoma and contusion IV drug user Septic pulmonary embolism Social History Social History Household Members: Other Housing: Homeless Do you presently have visiting nurse or other home services: No Alcohol intake: current Alcohol intake frequency: 3 or more drinks per day Alcohol type: beer Patient Tobacco Use Status: Never used Tobacco Tobacco use type: Cigarette e-Cigarette/Vaping Use: Never Used Substance Use Type: Crack/Cocaine Advance Directives: No Advance Directives Information Provided: No service: No Physical Exam Vital Signs: Vital Signs: Last Vital Signs Temp 98.1 F 03/22/21 14:17 Pulse 79 03/22/21 14:17 Resp 14 03/22/21 14:17 BP 119/81 03/22/21 14:17 Pulse Ox 98 03/22/21 14:17 BMI result Body Mass Index 16.2 Vital signs stable. Appearance: Alert.? Oriented X3.? No acute distress.? Disheveled. Head: Normocephalic, atraumatic, no step-offs or deformities Eyes: Pupils equal, round and reactive to light.? ENT: Pharynx normal.? Neck: Normal inspection.? Neck supple.? CVS: Normal heart rate and rhythm.? Pulses normal.? Respiratory: No respiratory distress.? Breath sounds normal.? Abdomen: Soft and nontender.? Skin: Skin warm and dry.? Normal skin color.? Normal skin turgor.?+ 1 cm abscess to left chest. Extremities: No lower extremity edema.? No calf ttp. 5/5 strength to bilateral upper and lower extremities Back: No midline tenderness, no C-spine tenderness, full range of motion, no CVA tenderness bilaterally Neuro: Oriented X 3.? No motor deficit.? No sensory deficit. Course Reevaluation(s) Reevaluation #1: Patient sleeping not wanting anything done. Time: 13:07 Reevaluation #2: Now patient tells me he is here because of an abscess on the left side of his chest that smells bad. He tells me that fluids coming out of it. He tells me that this has been going on for weeks . He tells me his prescribed antibiotics but he only took a few doses in never finished them. Time: 14:36 Reevaluation #3: With light pressure the abscess popped. Pictures in the chart. I will prescribe antibiotics as patient tells me he will take them this time. Patient has no signs of sepsis. His laboratory studies appear to be at baseline, no leukocytosis. At this time patient is eating and drinking well. I feel comfortable with discharge home. Time: 16:39 Medical Decision Making [facility] Narrative Medical decision making narrative: [id number] 35 yo male pmhx cirrhosis, IVDA, homelessness presents with a complaint of im cold , he is homeless and is going from hospital to hospital for care home. No medical complaints It appears as though he had a workup done here 4 days ago, patient eloped. It appears as though patient has a history of a left-sided chest abscess. He also has a history of MRSA. PE angry not following commands. 1 cm wound/ absces to left side of chest (image in chart) no fluctuance. Plan- speak to polo coach is about detox and possible care home for patient. Will feed patient Medical Records Medical records reviewed: Yes I reviewed the patient's medical records. Lab Data Lab results reviewed: Yes I reviewed the patient's lab results. Result diagrams: 03/22/21 16:16 03/22/21 16:16 Labs: Lab Results 03/22/21 Range/Units 16:16 WBC 5.9 (4.8-10.8) X10*3/uL RBC 3.59 L (4.60-5.80) X10*6/uL Hgb 10.8 L (14.0-18.0) g/dl Hct 32.8 L (42.0-52.0) % MCV 91.4 (80.0-98.0) fL MCH 30.1 (27.0-33.0) pg MCHC 32.9 (31.0-36.0) g/dl RDW 16.6 H (11.0-16.0) % Plt Count 180 (160-400) X10*3/uL MPV 8.2 L (9.4-12.4) fL Immature Gran % (Auto) 0.3 (0.0-0.4) % Neut % (Auto) 73.4 H (45-73) % Lymph % (Auto) 17.0 L (20-40) % Lassen % (Auto) 7.7 (2-11) % Eos % (Auto) 1.3 (0-4) % Baso % (Auto) 0.3 (0-2) % Lymph # (Auto) 1.0 L (1.2-4.9) X10*3/uL Lassen # (Auto) 0.5 (0.1-1.2) X10*3/uL Eos # (Auto) 0.1 (0.0-0.4) X10*3/uL Baso # (Auto) 0.0 (0.0-0.2) X10*3/uL Abs Immat Gran (auto) 0.02 (0.00-0.03) X10*3/uL Absolute Neuts (auto) 4.4 (2.0-8.3) x10*3/uL Absolute Nucleated RBC 0.000 (0.0-0.012) X10*3/uL Nucleated RBC % (auto) 0.0 (0.0-0.2) /100WBC Critical Care Time Critical Care Time Critical Care Time: No Discharge Plan Discharge Clinical Impression: Homelessness, Abscess, Cellulitis Patient Disposition: Home, Self-Care Instructions: Cellulitis (ED), Abscess (ED) Additional Instructions: Take your medications as prescribed. If you were prescribed antibiotics today, it is important that you take your medication to their entirety, do not skip any doses, do not finish them early. Follow-up with your primary care provider this week. Return to the emergency department with new or worsening symptoms. In case of emergency call 911 Prescriptions: New doxycycline hyclate 100 mg capsule 100 mg PO BID 10 Days Qty: 20 RF: 0 cephalexin 500 mg tablet 500 mg PO Q6H 10 Days Qty: 40 RF: 0 No Action daptomycin 500 mg recon soln 470 mg IV Q24H Qty: 33 RF: 0 furosemide 40 mg Tablet 40 mg PO BID@0900,1800 Qty: 60 RF: 0 lidocaine [Lidocaine Pain Relief] 4 % Adhesive Patch,Medicated 1 patch transdermal DAILY Qty: 15 RF: 0 polyethylene glycol 3350 17 gram Powder In Packet 17 g PO BIDPC Qty: 30 RF: 0 nicotine (polacrilex) 2 mg Gum 2 mg buccal Q1H PRN (Reason: nicotein) Qty: 30 RF: 0 melatonin 3 mg Tablet 6 mg PO BEDTIME PRN (Reason: Insomnia) Qty: 30 RF: 0 spironolactone 25 mg Tablet 50 mg PO BID@0900,1800 Qty: 30 RF: 0 hydromorphone 2 mg Tablet 2 mg PO Q4H PRN (Reason: Pain, Severe (Pain Scale 7-10)) Qty: 20 RF: 0 docusate sodium 100 mg Capsule 100 mg PO BID Qty: 30 RF: 0 gabapentin 100 mg Capsule 100 mg PO TID Qty: 60 RF: 0 methadone [Methadose] 10 mg/mL Concentrate 55 mg PO DAILY Qty: 30 RF: 0 Referrals: Physician,Unknown J [Primary Care Provider] - 2 days
[2021-03-22 14:17] VITALS: BP 119/81; PULSE 79; RESP 14; TEMP 36.7; O2SAT 98
[2021-03-22 16:21] LABS: MANUAL DIFF FLAG NO
[2021-03-22 16:23] LABS: Basophils Percent Auto 0.3 % (0-2); Eosinophils Absolute Auto 0.1 X10*3/uL (0.0-0.4); Eosinophils Percent Auto 1.3 % (0-4); Hematocrit 32.8 % (42.0-52.0); Hemoglobin 10.8 g/dl (14.0-18.0); Imm Gran Abs Auto 0.02 X10*3/uL (0.00-0.03); Imm Gran Pct Auto 0.3 % (0.0-0.4); Mean Corpuscular HGB Conc 32.9 g/dl (31.0-36.0); Mean Corpuscular Hemoglobin 30.1 pg (27.0-33.0); Mean Corpuscular Volume 91.4 fL (80.0-98.0); Mean Platelet Volume 8.2 fL (9.4-12.4); Monocytes Absolute Auto 0.5 X10*3/uL (0.1-1.2); Monocytes Percent Auto 7.7 % (2-11); Neutrophils Absolute Auto 4.4 x10*3/uL (2.0-8.3); Neutrophils Percent Auto 73.4 % (45-73); Platelet Count 180 X10*3/uL (160-400); Red Blood Count 3.59 X10*6/uL (4.60-5.80); Red Cell Distribution Width 16.6 % (11.0-16.0); White Blood Count 5.9 X10*3/uL (4.8-10.8)
[2021-03-22 16:38] LABS: Alanine Aminotransferase 11 U/L (0-40); Albumin Level 2.5 g/dL (3.5-5.0); Alkaline Phosphatase 48 U/L (39-117); Anion Gap 12 (12-20); Aspartate Amino Transferase 20 U/L (5-37); Blood Urea Nitrogen 11 mg/dL (9-16); Calcium 8.3 mg/dL (8.4-10.2); Carbon Dioxide 24 mmol/L (22-29); Chloride 107 mmol/L (96-108); Creatinine Clr Calc Pharmacy 134.6; Estimated Glomerular Filt Rate > 60; Glucose Random 83 mg/dL (60-115); Potassium 3.6 mmol/L (3.3-5.1); Sodium 139 mmol/L (135-145); Total Protein 6.7 g/dL (6.5-8.0)
[2021-03-22 16:40] LABS: COVID-19 Test Negative (Negative); IDNOW Serial# 9DD0AD1C
== END 2021-03-22 17:54 | disposition home or self-care (01) ==
PROVIDERS: Physician Assistant; Emergency Provider Emergency Medicine
DX: L02.213 Cutaneous abscess of chest wall (principal); L03.313 Cellulitis of chest wall; Z72.89 Other problems related to lifestyle; Z59.00 Homelessness unspecified; F11.20 Opioid dependence, uncomplicated; B19.20 Unspecified viral hepatitis C without hepatic coma; Z86.14 Personal history of Methicillin resistant Staphylococcus aureus infection; Z20.822 Contact with and (suspected) exposure to COVID-19
CPT/HCPCS: 36415; 80053; 85025; 87635; 99283

== ENCOUNTER 2021-03-28 15:31 | Outpatient (REF) | payer OTHER, SELFPAY ==
[2021-03-28 15:54] LABS: MANUAL DIFF FLAG NO
[2021-03-28 16:21] LABS: Basophils Percent Auto 0.2 % (0-2); Eosinophils Percent Auto 0.5 % (0-4); Hematocrit 30.8 % (42.0-52.0); Imm Gran Abs Auto 0.03 X10*3/uL (0.00-0.03); Imm Gran Pct Auto 0.4 % (0.0-0.4); Lymphocytes Absolute Auto 1.3 X10*3/uL (1.2-4.9); Lymphocytes Percent Auto 15.7 % (20-40); Mean Corpuscular HGB Conc 32.5 g/dl (31.0-36.0); Mean Corpuscular Hemoglobin 29.7 pg (27.0-33.0); Mean Corpuscular Volume 91.4 fL (80.0-98.0); Mean Platelet Volume 8.5 fL (9.4-12.4); Monocytes Absolute Auto 0.8 X10*3/uL (0.1-1.2); Monocytes Percent Auto 9.7 % (2-11); Neutrophils Absolute Auto 5.9 x10*3/uL (2.0-8.3); Neutrophils Percent Auto 73.5 % (45-73); Platelet Count 196 X10*3/uL (160-400); Red Blood Count 3.37 X10*6/uL (4.60-5.80); Red Cell Distribution Width 16.2 % (11.0-16.0); White Blood Count 8.1 X10*3/uL (4.8-10.8)
[2021-03-28 16:43] LABS: Anion Gap 11 (12-20); Blood Urea Nitrogen 7 mg/dL (9-16); Calcium 8.3 mg/dL (8.4-10.2); Carbon Dioxide 25 mmol/L (22-29); Chloride 106 mmol/L (96-108); Estimated Glomerular Filt Rate > 60; Glucose Random 91 mg/dL (60-115); Potassium 3.9 mmol/L (3.3-5.1); Sodium 138 mmol/L (135-145)
== END 2021-03-28 15:32 | disposition home or self-care (01) ==
LOC: HO.LAB 15:31
PROVIDERS: PCP Internal Medicine; Visit Provider Internal Medicine
DX: R51.9 Headache, unspecified (principal); Z13.0 Encounter for screening for diseases of the blood and blood-forming organs and certain disorders involving the immune mechanism; Z59.00 Homelessness unspecified
CPT/HCPCS: 36415; 80048; 85025

== ENCOUNTER 2021-03-30 02:00 | Emergency (ER) | payer OTHER, SELFPAY ==
--- NOTE | ~2021-03-30 | CT_ITS ---
EXAMINATION: CT CHEST WITH CONTRAST CLINICAL INFORMATION: Left chest wall abscess COMPARISON: Previous chest x-ray January [address] January 2021 TECHNIQUE: Multidetector volumetric CT imaging of the chest was obtained after the administration of 85 mL of Omnipaque 350 intravenous contrast without immediate adverse reactions. Axial MIP volume rendering provided. Sagittal and coronal reformatted images were obtained. This CT examination was performed using dose optimization techniques as appropriate, variously including the following: *Automated exposure control *Adjustment of mA and/or kV according to patient size (this includes techniques or standardized protocols for targeted exams where dose is matched to indication/reason for exam; i.e. extremities or head) *Use of iterative reconstruction technique DLP: 225 mGy-cm FINDINGS: LUNGS: The previously identified cavitary pulmonary nodules appear decreased in size or have completely resolved. There are 2 residual cysts or areas of cavitation seen in the anterior left upper lobe are just measuring 1 x 1.5 cm axial image 14 series 5. There is a residual cyst or cavity in the lateral right upper lobe measuring 1 x 2 cm axial image 13 series 5. There is residual linear scarring seen in the posterior right lower lobe axial image 18 and posterior medial left lower lobe axial image 32 series 5. No new pulmonary nodule is seen. There is atelectasis at the lung bases. MEDIASTINUM: There is shotty mediastinal lymphadenopathy. No enlarged mediastinal lymph nodes are seen. The heart does not appear enlarged. There is no pericardial effusion. PLEURA: There are small bilateral pleural effusions. AXILLA: There is diffuse soft tissue thickening of the left lateral chest wall. A focal chest wall fluid collection is not seen. UPPER ABDOMEN: See dedicated abdominal and pelvic CT report OSSEOUS STRUCTURES: There is a recent appearing left posterior lateral eighth and [address]/CT chest w con IMPRESSION: Resolved pulmonary cavitary nodules. New atelectasis at the lung bases and small bilateral pleural effusions. Soft tissue swelling over the left posterior lateral chest wall and left eighth and ninth rib fractures. No chest wall abscess is seen. Fleischner guidelines were followed.
--- NOTE | ~2021-03-30 | CT_ITS ---
EXAMINATION: CT ABDOMEN AND PELVIS WITH CONTRAST CLINICAL INFORMATION: Left chest wall abscess. Cirrhosis and ascites. History of recent peritonitis. COMPARISON: Previous CT of the abdomen and pelvis January 2021 and ultrasound-guided paracenteses most recent 01/28/2021 TECHNIQUE: Multidetector volumetric images were obtained from the superior aspect of the liver through the pubic symphysis following administration 85 mL of Omnipaque 350 intravenous contrast. Sagittal and coronal reformatted images were obtained on the technologist's workstation. Oral contrast: Yes This CT examination was performed using dose optimization techniques as appropriate, variously including the following: *Automated exposure control *Adjustment of mA and/or kV according to patient size (this includes techniques or standardized protocols for targeted exams where dose is matched to indication/reason for exam; i.e. extremities or head) *Use of iterative reconstruction technique DLP: 749 mGy-cm FINDINGS: LIVER, GALLBLADDER, AND BILIARY TREE: The liver is cirrhotic. There is heterogeneous enhancement of the liver. This may be related to severe fibrotic changes. Focal liver lesion is difficult to exclude and dedicated MRI imaging should be considered. The gallbladder is contracted. There is no biliary duct dilatation. There are loculated pockets of fluid anterior to the left lobe of the liver and inferior to the liver. The largest pocket of fluid is inferior to the left lobe of the liver and measures approximately 10 x 10 cm. There is a pocket of fluid under the left hemidiaphragm. This measures 5 x 10 x 10 cm in dimension. This area has a defined enhancing wall and is concerning for abscess. PANCREAS: Unremarkable. SPLEEN: The spleen is enlarged. ADRENAL GLANDS: Unremarkable. KIDNEYS AND URETERS: The kidneys are normal in size, shape, and attenuation. No hydronephrosis, hydroureter, or calculi seen. No perinephric stranding. BLADDER: Not optimally distended. GASTROINTESTINAL TRACT: There is stool throughout the colon suggestive of constipation. Small and large bowel are otherwise unremarkable. The appendix is unremarkable. The stomach is distended and filled with food. ABDOMINAL WALL: No significant hernia is appreciated. LYMPH NODES: Normal. VASCULAR: There are multiple varices. The splenic vein and portal vein appear patent. PELVIC VISCERA: Unremarkable. OSSEOUS STRUCTURES: Unremarkable. CT/CT abdomen pelvis w con IMPRESSION: Cirrhotic-appearing liver. This demonstrates very heterogeneous enhancement and it is difficult to exclude a focal liver lesion. Dedicated liver MRI recommended. Splenomegaly and varices. Ascites. Very small amount of free ascites. There are loculated fluid collections anterior and adjacent to the left lobe of the liver. There is a loculated fluid collection under the left hemidiaphragm with enhancing wall questionable for a subdiaphragmatic abscess. Constipation. Distended fluid-filled stomach. Fleischner guidelines were followed.
[2021-03-30 02:03] VITALS: BP 156/84; PULSE 107; RESP 18; TEMP 36.3; O2SAT 99; BMI 19.2
[2021-03-30 02:09] VITALS: BP 114/65; PULSE 90; RESP 14; TEMP 36.9; O2SAT 99
--- NOTE | 2021-03-30 02:49 | PC.NURSE ---
small abscess noted to left side/rib cage, pt states he was being treated for it. Large amounts of thick purulent drainage noted. Dressing wet and dirty, new clean dry sterile dressing applied in triage.
--- NOTE | 2021-03-30 08:35 | PC.NURSE ---
pt brought back into triage for labs and EKG. Pt with abdominal swelling, nimco cook noted. Swelling to lower extremities. Pt states he has end stage liver disease. Seeking clearance for rehab/detox. Pt alert and oriented, walks with steady gait.
[2021-03-30 08:55] LABS: MANUAL DIFF FLAG NO
[2021-03-30 08:59] LABS: Basophils Percent Auto 0.4 % (0-2); Eosinophils Absolute Auto 0.2 X10*3/uL (0.0-0.4); Eosinophils Percent Auto 2.3 % (0-4); Hematocrit 30.2 % (42.0-52.0); Hemoglobin 9.7 g/dl (14.0-18.0); Imm Gran Abs Auto 0.03 X10*3/uL (0.00-0.03); Imm Gran Pct Auto 0.4 % (0.0-0.4); Lymphocytes Absolute Auto 1.4 X10*3/uL (1.2-4.9); Lymphocytes Percent Auto 17.6 % (20-40); Mean Corpuscular HGB Conc 32.1 g/dl (31.0-36.0); Mean Corpuscular Hemoglobin 29.4 pg (27.0-33.0); Mean Corpuscular Volume 91.5 fL (80.0-98.0); Mean Platelet Volume 8.4 fL (9.4-12.4); Monocytes Absolute Auto 0.8 X10*3/uL (0.1-1.2); Monocytes Percent Auto 9.5 % (2-11); Neutrophils Absolute Auto 5.5 x10*3/uL (2.0-8.3); Neutrophils Percent Auto 69.8 % (45-73); Platelet Count 155 X10*3/uL (160-400); Red Cell Distribution Width 15.8 % (11.0-16.0); White Blood Count 7.9 X10*3/uL (4.8-10.8)
[2021-03-30 09:11] LABS: COVID-19 Test Negative (Negative); IDNOW Serial# 9DD0AD1C
[2021-03-30 09:25] LABS: Alanine Aminotransferase 13 U/L (0-40); Albumin Level 2.7 g/dL (3.5-5.0); Alkaline Phosphatase 65 U/L (39-117); Anion Gap 11 (12-20); Aspartate Amino Transferase 29 U/L (5-37); Bilirubin Direct 0.4 mg/dL (0.0-0.5); Bilirubin Total 0.5 mg/dL (0.0-1.0); Blood Urea Nitrogen 7 mg/dL (9-16); Calcium 8.4 mg/dL (8.4-10.2); Carbon Dioxide 27 mmol/L (22-29); Chloride 103 mmol/L (96-108); Creatinine Clr Calc Pharmacy 125.9; Estimated Glomerular Filt Rate > 60; Glucose Random 140 mg/dL (60-115); Potassium 3.9 mmol/L (3.3-5.1); Sodium 137 mmol/L (135-145); Total Protein 6.9 g/dL (6.5-8.0)
--- NOTE | 2021-03-30 10:01 | ED.GENADULT ---
HPI - General Adult General Chief complaint: ETOH/Substance Use <Rebecca Rucker NP - Last Filed: 03/30/21 12:30> Stated complaint: Medical Clearance <Rebecca Rucker NP - Last Filed: 03/30/21 12:30> Time Seen by Provider: 03/30/21 08:17 <Rebecca Rucker NP - Last Filed: 03/30/21 12:30> Source: patient <Rebecca Rucker NP - Last Filed: 03/30/21 12:30> Mode of arrival: ambulatory <Rebecca Rucker NP - Last Filed: 03/30/21 12:30> Limitations: no limitations <Rebecca Rucker NP - Last Filed: 03/30/21 12:30> History of Present Illness HPI narrative: 35-year-old male with a history of IV drug abuse, history of liver cirrhosis with ascites here with complaints of seeking medical clearance to go to detox. Patient tells me he is currently using heroin 2-3 bags daily and he is using an IV. He tells me he called [facility] for detox yesterday and he was referred into the emergency department for medical clearance prior to the accepting him. He denies any additional substance use. He tells me he has chronic abdominal distention, lower extremity swelling but denies any pain. Tells me he is currently on both doxycycline and cephalexin for cellulitis. He tells me he is intermittently compliant with these. He denies any fevers and chills. He tells me he has had a chronic chest wound for the last 2 months that drains purulent drainage. No abdominal pain, vomiting, diarrhea, shortness of breath or chest pain. Patient tells me he is also homeless. He is looking for long-term housing. He denies suicidal or homicidal ideation. His last use of heroin was yesterday at 11:00 <Rebecca Rucker NP - Last Filed: 03/30/21 12:30> Related Data Home medications: Home Medications Medication Instructions Recorded Confirmed fentanyl 37.5 mcg/hour transdermal 1 patch TOPICAL Q3D 03/31/21 patch tamsulosin 0.4 mg capsule 1 cap PO DAILY 03/31/21 Previous Rx's Medication Instructions Recorded docusate sodium 100 mg capsule 100 mg PO BID #30 cap 02/03/21 furosemide 40 mg tablet 40 mg PO BID@0900,1800 #60 tab 02/03/21 gabapentin 100 mg capsule 100 mg PO TID #60 cap 02/03/21 melatonin 3 mg tablet 6 mg PO BEDTIME PRN #30 tab 02/03/21 methadone 10 mg/mL oral 55 mg (5.5 mL) PO DAILY #30 ml 02/03/21 concentrate (Methadose) nicotine (polacrilex) 2 mg gum 2 mg BUCCAL Q1H PRN #30 ea 02/03/21 polyethylene glycol 3350 17 gram 17 g PO BIDPC #30 ea 02/03/21 oral powder packet spironolactone 25 mg tablet 50 mg PO BID@0900,1800 #30 tab 02/03/21 cephalexin 500 mg tablet 500 mg PO Q6H 10 Days #40 tab 03/22/21 doxycycline hyclate 100 mg capsule 100 mg PO BID 10 Days #20 cap 03/22/21 cephalexin 500 mg capsule 500 mg PO QID 10 Days #40 cap 03/31/21 doxycycline hyclate 100 mg capsule 100 mg PO BID #20 cap 03/31/21 <Reebcca Rucker NP - Last Filed: 03/30/21 12:30> Allergies/adverse reactions: Allergies Allergy/AdvReac Type Severity Reaction Status Date / Time No Known Allergies Allergy Verified 03/31/21 00:59 [No Known Allergies*] <Rebecca Rucker NP - Last Filed: 03/30/21 12:30> Review of Systems Review of Systems: Yes all other systems are reviewed and are negative <Rebecca Rucker NP - Last Filed: 03/30/21 12:30> Constitutional: Constitutional: Reports no additional constitutional complaints, Denies body ache(s), Denies chills, Denies fever(s), Denies headache(s) and Denies weakness <Rebecca Rucker NP - Last Filed: 03/30/21 12:30> Eyes: Eyes: Reports no additional eye complaints and Denies change in vision <GERALD Contreras Last Filed: 03/30/21 12:30> ENT: Reports system reviewed and no additional complaints, except as documented, Denies dizziness, Denies headache(s), Denies nasal congestion, Denies nasal discharge and Denies neck pain <Rebecca Rucker NP - Last Filed: 03/30/21 12:30> Cardiovascular: Cardiovascular: Reports no additional cardiovascular complaints, Denies chest pain, Reports leg edema (chronic ) and Denies dyspnea <Rebecca Rucker NP - Last Filed: 03/30/21 12:30> Respiratory: Respiratory: Reports no additional respiratory complaints, Denies cough and Denies dyspnea <Rebecca Rucker NEUROLOGY PHYSICIAN - Last Filed: 03/30/21 12:30> Gastrointestinal: Gastrointestinal: Reports no additional gastrointestinal complaints, Denies abdominal pain, Denies diarrhea, Denies nausea and Denies vomiting <Rebecca Rucker NP - Last Filed: 03/30/21 12:30> Comments: +abdominal distention-chronic <Rebecca Rucker NP - Last Filed: 03/30/21 12:30> Genitourinary: Genitourinary: Denies urinary incontinence <Rebecca Rucker NP - Last Filed: 03/30/21 12:30> Musculoskeletal: Musculoskeletal: Reports no additional musculoskeletal complaints, Denies back pain, Denies arthralgias, Denies joint swelling, Denies neck pain, Denies numbness and Denies tingling <Rebecca Rucker NP - Last Filed: 03/30/21 12:30> Integumentary/Breasts: Skin/Breast: Reports system reviewed and no additional complaints, except as docu and Denies rash <Rebecca Rucker NP - Last Filed: 03/30/21 12:30> Neurologic: Reports system reviewed and no additional complaints, except as documented, Denies Abnormal speech present, Denies dizziness, Denies headache(s), Denies numbness, Denies tingling and Denies weakness <Rebecca Rucker NP - Last Filed: 03/30/21 12:30> PMFSH Past Medical History Attestation statement: The following information was validated with the patient. <Rebecca Rucker NP - Last Filed: 03/30/21 12:30> Source: old records reviewed and nursing notes reviewed <Rebecca Rucker NP - Last Filed: 03/30/21 12:30> Medical History: Medical History (Updated 04/01/21 @ 05:26 by Misael Ugarte MD) Ascites Ascites Cirrhosis Hematoma and contusion IV drug user Septic pulmonary embolism <Rebecca Rucker NP - Last Filed: 03/30/21 12:30> Surgical History: Surgical History (Updated 04/01/21 @ 05:24 by Misael Ugarte MD) No pertinent past surgical history <Rebecca Rucker NP - Last Filed: 03/30/21 12:30> Social History Social History: Social History Household Members: Other Housing: Homeless Do you presently have visiting nurse or other home services: No Alcohol intake: former Patient Tobacco Use Status: Never used Tobacco Tobacco use type: Cigarette e-Cigarette/Vaping Use: Never Used Use of substances other than those prescribed or required for medical reasons: Yes Substance Use Type: Crack/Cocaine Advance Directives: No Advance Directives Information Provided: Yes service: No <Rebecca Rucker NP - Last Filed: 03/30/21 12:30> Physical Exam Vital Signs: Vital Signs: Last Vital Signs Temp 98.4 F 03/30/21 02:09 Pulse 90 03/30/21 02:09 Resp 14 03/30/21 02:09 BP 114/65 03/30/21 02:09 Pulse Ox 99 03/30/21 02:09 BMI result Body Mass Index 19.2 <Rebecca Rucker NP - Last Filed: 03/30/21 12:30> Vital Signs: Last Vital Signs Temp 98.4 F 03/30/21 02:09 Pulse 90 03/30/21 02:09 Resp 14 03/30/21 02:09 BP 114/65 03/30/21 02:09 Pulse Ox 99 03/30/21 02:09 BMI result Body Mass Index 19.2 <Elton Valentin MD - Last Filed: 04/01/21 06:46> Const: Other: Thin appearing <Rebecca Rucker NP - Last Filed: 03/30/21 12:30> General: cooperative <Rebecca Rucker NP - Last Filed: 03/30/21 12:30> Orientation/consciousness: patient oriented x3 <Rebecca Rucker NP - Last Filed: 03/30/21 12:30> Limitations: no limitations <Rebecca Rucker NP - Last Filed: 03/30/21 12:30> HENMT: Head: Yes normal to inspection <Rebecca Rucker NP - Last Filed: 03/30/21 12:30> Ears: hearing grossly normal bilaterally <Rebecca Rucker NP - Last Filed: 03/30/21 12:30> General nose exam: Normal external nose present <Rebecca Rucker NP - Last Filed: 03/30/21 12:30> Face and sinus: Yes normal facial exam <Rebecca Rucker NP - Last Filed: 03/30/21 12:30> Mouth: Normal oral and palatal mucosa present <Rebecca Rucker NP - Last Filed: 03/30/21 12:30> Throat: Yes posterior oropharynx normal <Rebecca Rucker NP - Last Filed: 03/30/21 12:30> Eyes: General: appearance normal, both eyes and all related structures <Rebecca Rucker NP - Last Filed: 03/30/21 12:30> Pupils: Equal, round and reactive pupils present <Rebecca Rucker NP - Last Filed: 03/30/21 12:30> Neck: Neck: Yes normal visual inspection <Rebecca Rucker NP - Last Filed: 03/30/21 12:30> Chest: Chest palpation & inspection: normal inspection of the chest <Rebecca Rucker NP - Last Filed: 03/30/21 12:30> Chest/axillae images: 1. To the left chest wall there is an open area. There is no surrounding erythema, warmth or redness. When pressing on the outer borders of the wound I am able to express purulent drainage. <Rebecca Rucker NP - Last Filed: 03/30/21 12:30> Resp: Effort & Inspection: normal respiratory effort <Rebecca Rucker NP - Last Filed: 03/30/21 12:30> Auscultation: clear to auscultation bilaterally <Rebecca Rucker NP - Last Filed: 03/30/21 12:30> Cardio: Rate: regular rate <Rebecca Rucker NP - Last Filed: 03/30/21 12:30> Rhythm: regular rhythm <Rebecca Rucker NP - Last Filed: 03/30/21 12:30> Peripheral pulses: Peripheral pulses 2+ throughout <Rebecca Rucker NP - Last Filed: 03/30/21 12:30> GI: Other: Mild abdominal distension-firm. Nontender with no rebound or guarding <Rebecca Rucker NP - Last Filed: 03/30/21 12:30> Inspection: Yes normal to inspection <Rebecca Rucker NP - Last Filed: 03/30/21 12:30> Palpation (GI): nontender <Rebecca Rucker NP - Last Filed: 03/30/21 12:30> Auscultation: normal bowel sounds <Rebecca Rucker NP - Last Filed: 03/30/21 12:30> Back/Spine/Pelvis: Thoracic/Lumbar Spine: thoracic and lumbar spine normal to inspection <Rebecca Rucker NP - Last Filed: 03/30/21 12:30> Skin: General skin exam: no rashes or lesions noted <Rebecca Rucker NP - Last Filed: 03/30/21 12:30> Neuro: General: patient oriented x3, no focal motor deficits and normal sensation to monofilament <Rebecca Rucker NP - Last Filed: 03/30/21 12:30> Cranial nerves: Yes Equal, round and reactive pupils present <Rebecca Rucker NP - Last Filed: 03/30/21 12:30> Cognition (Neuro): normal cognition <Rebecca Rucker NP - Last Filed: 03/30/21 12:30> Speech: No Abnormal speech present <Rebecca Rucker NP - Last Filed: 03/30/21 12:30> Gait exam (Neuro): Normal gait present <Rebecca Rucker NP - Last Filed: 03/30/21 12:30> Motor exam (neuro): 5/5 motor strength present throughout <Rebecca Rucker NP - Last Filed: 03/30/21 12:30> Extrem: Other: Bilateral lower extremity pitting edema 1 to 2+ with no redness, drainage or pain Neurovascular intact distally <Rebecca Rucker NP - Last Filed: 03/30/21 12:30> General: Yes normal to inspection <Rebecca Rucker NP - Last Filed: 03/30/21 12:30> Course Course Course Narrative: 35-year-old male with a history of IV drug abuse, liver cirrhosis with chronic ascites here with reports of seeking medical clearance to go to detox today. The patient tells me he has chronic lower extremity swelling and abdominal distention was at his baseline. Denies any fevers, vomiting, diarrhea, abdominal pain. He does have a chronic left chest wall wound that puts out quite a bit of drainage and patient is intermittently compliant with cephalexin and doxycycline. No additional physical complaints. No suicidal ideation Will need labs, drug screen, EKG, CT chest/abdomen to eval for deeper abscess 1100-reviewed labs. Anemia of baseline, thrombocytopenia at baseline, albumin at baseline. Otherwise unremarkable. CT pending. 1145- Cirrhotic-appearing liver. This demonstrates very heterogeneous enhancement and it is difficult to exclude a focal liver lesion. Dedicated liver MRI recommended. Splenomegaly and varices. Ascites. Very small amount of free ascites. There are loculated fluid collections anterior and adjacent to the left lobe of the liver. There is a loculated fluid collection under the left hemidiaphragm with enhancing wall questionable for a subdiaphragmatic abscess. Constipation. Distended fluid-filled stomach. No leukocytosis or fever. Will discuss with General surgery. Anticipate admission. 1200-I spoke to the patient at length. Unfortunately he is quite insistent that he leave. He tells me he has to leave to get some paperwork so he may go to detox today. I explained to him at this point he is not medically cleared for discharge as he has a large subdiaphragmatic abscess that likely will require incision and drainage and surgery involvement with admission. Patient tells me that he is here for detox and medical clearance and feels that this abscess has been there for quite some time and he is well enough to go to detox today. I did explain to the patient that if he is admitted we would detox him here in the hospital and we could help him with his recovery as we have a very involved recovery team here at [place]. I offered him both Suboxone and methadone for his withdrawal symptoms but patient declined these. I anticipate that the patient will become sicker and septic as he has a prolonged history of bacteremia. Patient is aware of this. He is alert and oriented x3. He will leave against medical advice. He is welcome to return at any time <Rebecca Rucker NP - Last Filed: 03/30/21 12:30> Medical Decision Making Medical Records Medical records reviewed: Yes I reviewed the patient's medical records. <Rebecca Rucker NP - Last Filed: 03/30/21 12:30> Lab Data Lab results reviewed: Yes I reviewed the patient's lab results. <Rebecca Rucker NP - Last Filed: 03/30/21 12:30> Result diagrams: : 03/30/21 08:50 03/30/21 08:51 <Rebecca Rucker NP - Last Filed: 03/30/21 12:30> Labs: Lab Results 03/30/21 03/30/21 03/30/21 Range/Units 08:47 08:50 08:51 WBC 7.9 (4.8-10.8) X10*3/uL RBC 3.30 L (4.60-5.80) X10*6/uL Hgb 9.7 L (14.0-18.0) g/dl Hct 30.2 L (42.0-52.0) % MCV 91.5 (80.0-98.0) fL MCH 29.4 (27.0-33.0) pg MCHC 32.1 (31.0-36.0) g/dl RDW 15.8 (11.0-16.0) % Plt Count 155 L (160-400) X10*3/uL MPV 8.4 L (9.4-12.4) fL Immature Gran % (Auto) 0.4 (0.0-0.4) % Neut % (Auto) 69.8 (45-73) % Lymph % (Auto) 17.6 L (20-40) % [place] % (Auto) 9.5 (2-11) % Eos % (Auto) 2.3 (0-4) % Baso % (Auto) 0.4 (0-2) % Lymph # (Auto) 1.4 (1.2-4.9) X10*3/uL [place] # (Auto) 0.8 (0.1-1.2) X10*3/uL Eos # (Auto) 0.2 (0.0-0.4) X10*3/uL Baso # (Auto) 0.0 (0.0-0.2) X10*3/uL Abs Immat Gran (auto) 0.03 (0.00-0.03) X10*3/uL Absolute Neuts (auto) 5.5 (2.0-8.3) x10*3/uL Absolute Nucleated RBC 0.000 (0.0-0.012) X10*3/uL Nucleated RBC % (auto) 0.0 (0.0-0.2) /100WBC Sodium 137 (135-145) mmol/L Potassium 3.9 (3.3-5.1) mmol/L Chloride 103 (96-108) mmol/L Carbon Dioxide 27 (22-29) mmol/L Anion Gap 11 L (12-20) BUN 7 L (9-16) mg/dL Creatinine 0.67 (0.5-1.4) mg/dL Estim Creat Clear Calc 125.9 Estimated GFR > 60 Random Glucose 140 H D (60-115) mg/dL Calcium 8.4 (8.4-10.2) mg/dL Total Bilirubin 0.5 (0.0-1.0) mg/dL Direct Bilirubin 0.4 (0.0-0.5) mg/dL AST 29 D (5-37) U/L ALT 13 (0-40) U/L Alkaline Phosphatase 65 D (39-117) U/L Total Protein 6.9 (6.5-8.0) g/dL Albumin 2.7 L (3.5-5.0) g/dL Urine Opiates Screen (Not Detect) Urine Fentanyl Screen (Not Detect) Ur Barbiturates Screen (Not Detect) Ur Phencyclidine Scrn (Not Detect) Ur Amphetamines Screen (Not Detect) U Benzodiazepines Scrn (Not Detect) Urine Cocaine Screen (Not Detect) U Marijuana (THC) Screen (Not Detect) COVID-19 (TAMRA) Negative (Negative) COVID-19 Clin Com See Note 03/30/21 Range/Units 09:52 WBC (4.8-10.8) X10*3/uL RBC (4.60-5.80) X10*6/uL Hgb (14.0-18.0) g/dl Hct (42.0-52.0) % MCV (80.0-98.0) fL MCH (27.0-33.0) pg MCHC (31.0-36.0) g/dl RDW (11.0-16.0) % Plt Count (160-400) X10*3/uL MPV (9.4-12.4) fL Immature Gran % (Auto) (0.0-0.4) % Neut % (Auto) (45-73) % Lymph % (Auto) (20-40) % [place] % (Auto) (2-11) % Eos % (Auto) (0-4) % Baso % (Auto) (0-2) % Lymph # (Auto) (1.2-4.9) X10*3/uL [place] # (Auto) (0.1-1.2) X10*3/uL Eos # (Auto) (0.0-0.4) X10*3/uL Baso # (Auto) (0.0-0.2) X10*3/uL Abs Immat Gran (auto) (0.00-0.03) X10*3/uL Absolute Neuts (auto) (2.0-8.3) x10*3/uL Absolute Nucleated RBC (0.0-0.012) X10*3/uL Nucleated RBC % (auto) (0.0-0.2) /100WBC Sodium (135-145) mmol/L Potassium (3.3-5.1) mmol/L Chloride (96-108) mmol/L Carbon Dioxide (22-29) mmol/L Anion Gap (12-20) BUN (9-16) mg/dL Creatinine (0.5-1.4) mg/dL Estim Creat Clear Calc Estimated GFR Random Glucose (60-115) mg/dL Calcium (8.4-10.2) mg/dL Total Bilirubin (0.0-1.0) mg/dL Direct Bilirubin (0.0-0.5) mg/dL AST (5-37) U/L ALT (0-40) U/L Alkaline Phosphatase (39-117) U/L Total Protein (6.5-8.0) g/dL Albumin (3.5-5.0) g/dL Urine Opiates Screen POSITIVE H (Not Detect) Urine Fentanyl Screen POSITIVE H (Not Detect) Ur Barbiturates Screen Not Detected (Not Detect) Ur Phencyclidine Scrn Not Detected (Not Detect) Ur Amphetamines Screen Not Detected (Not Detect) U Benzodiazepines Scrn Not Detected (Not Detect) Urine Cocaine Screen POSITIVE H (Not Detect) U Marijuana (THC) Screen POSITIVE H (Not Detect) COVID-19 (TAMRA) (Negative) COVID-19 Clin Com <Rebecca Rucker NP - Last Filed: 03/30/21 12:30> Lab Results 03/30/21 03/30/21 03/30/21 Range/Units 08:47 08:50 08:51 WBC 7.9 (4.8-10.8) X10*3/uL RBC 3.30 L (4.60-5.80) X10*6/uL Hgb 9.7 L (14.0-18.0) g/dl Hct 30.2 L (42.0-52.0) % MCV 91.5 (80.0-98.0) fL MCH 29.4 (27.0-33.0) pg MCHC 32.1 (31.0-36.0) g/dl RDW 15.8 (11.0-16.0) % Plt Count 155 L (160-400) X10*3/uL MPV 8.4 L (9.4-12.4) fL Immature Gran % (Auto) 0.4 (0.0-0.4) % Neut % (Auto) 69.8 (45-73) % Lymph % (Auto) 17.6 L (20-40) % [place] % (Auto) 9.5 (2-11) % Eos % (Auto) 2.3 (0-4) % Baso % (Auto) 0.4 (0-2) % Lymph # (Auto) 1.4 (1.2-4.9) X10*3/uL [place] # (Auto) 0.8 (0.1-1.2) X10*3/uL Eos # (Auto) 0.2 (0.0-0.4) X10*3/uL Baso # (Auto) 0.0 (0.0-0.2) X10*3/uL Abs Immat Gran (auto) 0.03 (0.00-0.03) X10*3/uL Absolute Neuts (auto) 5.5 (2.0-8.3) x10*3/uL Absolute Nucleated RBC 0.000 (0.0-0.012) X10*3/uL Nucleated RBC % (auto) 0.0 (0.0-0.2) /100WBC Sodium 137 (135-145) mmol/L Potassium 3.9 (3.3-5.1) mmol/L Chloride 103 (96-108) mmol/L Carbon Dioxide 27 (22-29) mmol/L Anion Gap 11 L (12-20) BUN 7 L (9-16) mg/dL Creatinine 0.67 (0.5-1.4) mg/dL Estim Creat Clear Calc 125.9 Estimated GFR > 60 Random Glucose 140 H D (60-115) mg/dL Calcium 8.4 (8.4-10.2) mg/dL Total Bilirubin 0.5 (0.0-1.0) mg/dL Direct Bilirubin 0.4 (0.0-0.5) mg/dL AST 29 D (5-37) U/L ALT 13 (0-40) U/L Alkaline Phosphatase 65 D (39-117) U/L Total Protein 6.9 (6.5-8.0) g/dL Albumin 2.7 L (3.5-5.0) g/dL Urine Opiates Screen (Not Detect) Urine Fentanyl Screen (Not Detect) Ur Barbiturates Screen (Not Detect) Ur Phencyclidine Scrn (Not Detect) Ur Amphetamines Screen (Not Detect) U Benzodiazepines Scrn (Not Detect) Urine Cocaine Screen (Not Detect) U Marijuana (THC) Screen (Not Detect) COVID-19 (TAMRA) Negative (Negative) COVID-19 Clin Com See Note 03/30/21 Range/Units 09:52 WBC (4.8-10.8) X10*3/uL RBC (4.60-5.80) X10*6/uL Hgb (14.0-18.0) g/dl Hct (42.0-52.0) % MCV (80.0-98.0) fL MCH (27.0-33.0) pg MCHC (31.0-36.0) g/dl RDW (11.0-16.0) % Plt Count (160-400) X10*3/uL MPV (9.4-12.4) fL Immature Gran % (Auto) (0.0-0.4) % Neut % (Auto) (45-73) % Lymph % (Auto) (20-40) % [place] % (Auto) (2-11) % Eos % (Auto) (0-4) % Baso % (Auto) (0-2) % Lymph # (Auto) (1.2-4.9) X10*3/uL [place] # (Auto) (0.1-1.2) X10*3/uL Eos # (Auto) (0.0-0.4) X10*3/uL Baso # (Auto) (0.0-0.2) X10*3/uL Abs Immat Gran (auto) (0.00-0.03) X10*3/uL Absolute Neuts (auto) (2.0-8.3) x10*3/uL Absolute Nucleated RBC (0.0-0.012) X10*3/uL Nucleated RBC % (auto) (0.0-0.2) /100WBC Sodium (135-145) mmol/L Potassium (3.3-5.1) mmol/L Chloride (96-108) mmol/L Carbon Dioxide (22-29) mmol/L Anion Gap (12-20) BUN (9-16) mg/dL Creatinine (0.5-1.4) mg/dL Estim Creat Clear Calc Estimated GFR Random Glucose (60-115) mg/dL Calcium (8.4-10.2) mg/dL Total Bilirubin (0.0-1.0) mg/dL Direct Bilirubin (0.0-0.5) mg/dL AST (5-37) U/L ALT (0-40) U/L Alkaline Phosphatase (39-117) U/L Total Protein (6.5-8.0) g/dL Albumin (3.5-5.0) g/dL Urine Opiates Screen POSITIVE H (Not Detect) Urine Fentanyl Screen POSITIVE H (Not Detect) Ur Barbiturates Screen Not Detected (Not Detect) Ur Phencyclidine Scrn Not Detected (Not Detect) Ur Amphetamines Screen Not Detected (Not Detect) U Benzodiazepines Scrn Not Detected (Not Detect) Urine Cocaine Screen POSITIVE H (Not Detect) U Marijuana (THC) Screen POSITIVE H (Not Detect) COVID-19 (TAMRA) (Negative) COVID-19 Clin Com <Elton Valentin MD - Last Filed: 04/01/21 06:46> Imaging Data CT scan - chest: Attestation: I personally reviewed and interpreted this imaging study as follows: <Rebecca Rucker NP - Last Filed: 03/30/21 12:30> Radiologist's impression: IMPRESSION: Resolved pulmonary cavitary nodules. New atelectasis at the lung bases and small bilateral pleural effusions. Soft tissue swelling over the left posterior lateral chest wall and left eighth and ninth rib fractures. No chest wall abscess is seen. ? Fleischner guidelines were followed. <Rebecca Rucker NP - Last Filed: 03/30/21 12:30> CT scan - abdomen: Attestation: I personally reviewed and interpreted this imaging study as follows: <Rebecca Rucker NP - Last Filed: 03/30/21 12:30> Radiologist's impression: FINDINGS: LIVER, GALLBLADDER, AND BILIARY TREE: The liver is cirrhotic. There is heterogeneous enhancement of the liver. This may be related to severe fibrotic changes. Focal liver lesion is difficult to exclude and dedicated MRI imaging should be considered. The gallbladder is contracted. There is no biliary duct dilatation. There are loculated pockets of fluid anterior to the left lobe of the liver and inferior to the liver. The largest pocket of fluid is inferior to the left lobe of the liver and measures approximately 10 x 10 cm. There is a pocket of fluid under the left hemidiaphragm. This measures 5 x 10 x 10 cm in dimension. This area has a defined enhancing wall and is concerning for abscess. PANCREAS: Unremarkable.? SPLEEN: The spleen is enlarged.? ADRENAL GLANDS: Unremarkable.? KIDNEYS AND URETERS: The kidneys are normal in size, shape, and attenuation. No hydronephrosis, hydroureter, or calculi seen. No perinephric stranding. ? BLADDER: Not optimally distended. GASTROINTESTINAL TRACT: There is stool throughout the colon suggestive of constipation. Small and large bowel are otherwise unremarkable. The appendix is unremarkable. The stomach is distended and filled with food. ABDOMINAL WALL: No significant hernia is appreciated.? LYMPH NODES: Normal. VASCULAR: There are multiple varices. The splenic vein and portal vein appear patent. PELVIC VISCERA: Unremarkable.? OSSEOUS STRUCTURES: Unremarkable.? CT/CT abdomen pelvis w con IMPRESSION: Cirrhotic-appearing liver. This demonstrates very heterogeneous enhancement and it is difficult to exclude a focal liver lesion. Dedicated liver MRI recommended. Splenomegaly and varices. Ascites. Very small amount of free ascites. There are loculated fluid collections anterior and adjacent to the left lobe of the liver. There is a loculated fluid collection under the left hemidiaphragm with enhancing wall questionable for a subdiaphragmatic abscess. Constipation. Distended fluid-filled stomach. ? Fleischner guidelines were followed. <Reebcca Rucker NP - Last Filed: 03/30/21 12:30> ECG Data Attestation: I personally reviewed and interpreted this ECG as follows: <GERALD Contreras Last Filed: 03/30/21 12:30> Interpretation: Normal sinus rhythm with a rate 89, normal AR, normal QRS, normal QT <GERALD Contreras Last Filed: 03/30/21 12:30> Discharge Plan Discharge Clinical Impression: Abscess <GERALD Contreras Last Filed: 03/30/21 12:30> Patient Disposition: Left Against Medical Advice <GERALD Contreras Last Filed: 03/30/21 12:30> Instructions: Abscess (ED), Against Medical Advice (ED) <GERALD Contreras Last Filed: 03/30/21 12:30> Additional Instructions: It was recommended that you stay and be seen by General surgery as you have a large abscess underneath here diaphragm that will likely require incision and drainage. Your aware that you likely would be admitted and receive IV antibiotics and further treatments but you declined this. At this time I am unable to provide medical clearance for detox Please return at any time <Rebecca Rucker NP - Last Filed: 03/30/21 12:30> Prescriptions: No Action tamsulosin 0.4 mg capsule 1 cap PO DAILY RF: 0 fentanyl 37.5 mcg/hour patch 72 hour 1 patch topical Q3D RF: 0 cephalexin 500 mg capsule 500 mg PO QID 10 Days Qty: 40 RF: 0 doxycycline hyclate 100 mg capsule 100 mg PO BID Qty: 20 RF: 0 furosemide 40 mg Tablet 40 mg PO BID@0900,1800 Qty: 60 RF: 0 polyethylene glycol 3350 17 gram Powder In Packet 17 g PO BIDPC Qty: 30 RF: 0 nicotine (polacrilex) 2 mg Gum 2 mg buccal Q1H PRN (Reason: nicotein) Qty: 30 RF: 0 melatonin 3 mg Tablet 6 mg PO BEDTIME PRN (Reason: Insomnia) Qty: 30 RF: 0 spironolactone 25 mg Tablet 50 mg PO BID@0900,1800 Qty: 30 RF: 0 docusate sodium 100 mg Capsule 100 mg PO BID Qty: 30 RF: 0 gabapentin 100 mg Capsule 100 mg PO TID Qty: 60 RF: 0 methadone [Methadose] 10 mg/mL Concentrate 55 mg PO DAILY Qty: 30 RF: 0 doxycycline hyclate 100 mg capsule 100 mg PO BID 10 Days Qty: 20 RF: 0 cephalexin 500 mg tablet 500 mg PO Q6H 10 Days Qty: 40 RF: 0 <Rebecca Rucker NP - Last Filed: 03/30/21 12:30> Stand Alone Forms: Against Medical Advice <Rebecca Rucker NP - Last Filed: 03/30/21 12:30> Interventions: ED Discharge Assessment Last Done: 03/30/21 12:24 <Rebecca Rucker NP - Last Filed: 03/30/21 12:30> Discharge Date/Time: 03/30/21 12:25 <Rebecca Rucker NP - Last Filed: 03/30/21 12:30>
[2021-03-30 10:20] LABS: Amphetamine Screen Urine Not Detected (Not Detect); Barbiturates, Urine Not Detected (Not Detect); Benzodiazepines Screen Urine Not Detected (Not Detect); Cannabinoid Screen Urine POSITIVE (Not Detect); Cocaine Screen Urine POSITIVE (Not Detect); Fentanyl, urine POSITIVE (Not Detect); Opiate Screen Urine POSITIVE (Not Detect); Phencyclidine Screen Urine Not Detected (Not Detect)
[2021-03-30] MEDS: iohexoL 350 MG/ML 100 ML INFUS..BTL IV (10:57)
--- NOTE | 2021-03-30 11:45 | PC.NURSE ---
LEFT UPPER ABDOMEN WOUND DRAINING MODERATE AMOUNT OF ROJO FLUID.WOUND CLEANED AND DRY ABD DRESSING PLACED X 3 DUE TO DRAINAGE. PT STATES HE HAS BEEN TAKING CARE OF DRESSING BY SELF FOR 2 MONTHS NOW. PT IS HOMELESS AND TRYING TO GET INTO DETOX. AWAITING RE EVAL AFTER CT SCAN.
== END 2021-03-30 12:25 | disposition left against medical advice (07) ==
PROVIDERS: Physician Assistant; Emergency Provider Emergency Medicine; PCP Internal Medicine
DX: L02.213 Cutaneous abscess of chest wall (principal); R18.8 Other ascites; R10.9 Unspecified abdominal pain; F14.90 Cocaine use, unspecified, uncomplicated; F11.10 Opioid abuse, uncomplicated; Z20.822 Contact with and (suspected) exposure to COVID-19; Z79.899 Other long term (current) drug therapy; Z71.51 Drug abuse counseling and surveillance of drug abuser
CPT/HCPCS: 71260; 74177; 80048; 80076; 80307; 85025; 87071; 87077; 87186; 87205; 87635; 99284; Q9967

== ENCOUNTER 2021-03-31 00:44 | Emergency (ER) | payer OTHER, SELFPAY ==
[2021-03-31 00:54] VITALS: BP 154/89; PULSE 105; RESP 16; TEMP 37; O2SAT 97; BMI 19.2
--- NOTE | 2021-03-31 08:05 | ED.SKABFB ---
HPI - Skin/Abscess/Foreign Bdy General Chief complaint: Skin/Abscess/Foreign Body Stated complaint: cyst/abscess on abd in pain Time Seen by Provider: 03/31/21 00:53 Source: patient Mode of arrival: ambulatory Limitations: no limitations History of Present Illness HPI narrative: Patient here for evaluation of abscess. He was admitted for large abscess of his left flank. States it is still draining. Patient was seen yesterday where it was discovered that he had a left subdiaphragmatic abscess and possible liver abscess. He signed out AMA yesterday. patient is a known IVDU and has liver cirrhosis secondary to hepatitis C and alcoholism. complaint: abscess/boil Onset (ago): week(s) Location: chest and back Severity: mild Exacerbating factors: none Context: none Associated symptoms: fever and chills Related Data Home Medications Medication Instructions Recorded Confirmed fentanyl 37.5 mcg/hour transdermal 1 patch TOPICAL Q3D 03/31/21 patch tamsulosin 0.4 mg capsule 1 cap PO DAILY 03/31/21 Previous Rx's Medication Instructions Recorded docusate sodium 100 mg capsule 100 mg PO BID #30 cap 02/03/21 furosemide 40 mg tablet 40 mg PO BID@0900,1800 #60 tab 02/03/21 gabapentin 100 mg capsule 100 mg PO TID #60 cap 02/03/21 melatonin 3 mg tablet 6 mg PO BEDTIME PRN #30 tab 02/03/21 methadone 10 mg/mL oral 55 mg (5.5 mL) PO DAILY #30 ml 02/03/21 concentrate (Methadose) nicotine (polacrilex) 2 mg gum 2 mg BUCCAL Q1H PRN #30 ea 02/03/21 polyethylene glycol 3350 17 gram 17 g PO BIDPC #30 ea 02/03/21 oral powder packet spironolactone 25 mg tablet 50 mg PO BID@0900,1800 #30 tab 02/03/21 cephalexin 500 mg tablet 500 mg PO Q6H 10 Days #40 tab 03/22/21 doxycycline hyclate 100 mg capsule 100 mg PO BID 10 Days #20 cap 03/22/21 cephalexin 500 mg capsule 500 mg PO QID 10 Days #40 cap 03/31/21 doxycycline hyclate 100 mg capsule 100 mg PO BID #20 cap 03/31/21 Allergies Allergy/AdvReac Type Severity Reaction Status Date / Time No Known Allergies Allergy Verified 03/31/21 00:59 [No Known Allergies*] Review of Systems Constitutional: Constitutional: Reports no additional constitutional complaints Eyes: Eyes: Reports no additional eye complaints ENT: Denies dizziness Cardiovascular: Cardiovascular: Reports no additional cardiovascular complaints Respiratory: Respiratory: Reports as per HPI Gastrointestinal: Gastrointestinal: Reports no additional gastrointestinal complaints Musculoskeletal: Musculoskeletal: Reports no additional musculoskeletal complaints Integumentary/Breasts: Skin/Breast: Denies rash Neurologic: Reports system reviewed and no additional complaints, except as documented, Denies dizziness and Denies Sensory deficit (Neuro) Psychiatric: Psychiatric: Denies anxiety [facility] Past Medical History Medical History Ascites Ascites Cirrhosis Hematoma and contusion IV drug user Septic pulmonary embolism Social History Social History Household Members: Other Housing: Homeless Do you presently have visiting nurse or other home services: No Alcohol intake: current Alcohol intake frequency: 3 or more drinks per day Alcohol type: beer Patient Tobacco Use Status: Never used Tobacco Tobacco use type: Cigarette e-Cigarette/Vaping Use: Never Used Substance Use Type: Crack/Cocaine Advance Directives: No service: No Physical Exam Vital Signs: Vital Signs: Last Vital Signs Temp 98.6 F 03/31/21 00:54 Pulse 105 H 03/31/21 00:54 Resp 16 03/31/21 00:54 BP 154/89 H 03/31/21 00:54 Pulse Ox 97 03/31/21 00:54 BMI result Body Mass Index 19.2 Const: Other: chronically ill cachectic, unkept Orientation/consciousness: oriented to person and patient oriented x3 Limitations: no limitations HENMT: Head: Yes normal to inspection Ears: external ears normal General nose exam: Normal external nose present Mouth: Normal oral and palatal mucosa present and oropharynx normal Throat: Yes posterior oropharynx normal Eyes: General: appearance normal, both eyes and all related structures Neck: Other: supple Neck: Yes normal visual inspection Chest: Other: left flank with chronically draining fistula Resp: Auscultation: clear to auscultation bilaterally Cardio: Jugular venous distension: no JVD Rate: regular rate Rhythm: regular rhythm Heart sounds: S1 normal heart sound present and S2 normal heart sound present GI: Other: hepatomegally, tense ascites Auscultation: normal bowel sounds : General: Yes no CVA tenderness Back/Spine/Pelvis: Back: no CVA tenderness Skin: General skin exam: no rashes or lesions noted Neuro: General: oriented to person and patient oriented x3 Cranial nerves: Yes CN's II-XII intact bilaterally Motor exam (neuro): 5/5 motor strength present throughout Sensory Exam: No Sensory deficit (Neuro) Extrem: Other: 3+ edema Psych: Appearance: grossly normal Course Reevaluation(s) Reevaluation #1: Discussed with Dr. Chavez who will consult Time: 12:12 Reevaluation #2: despite his diagnosis and discussing with surgery and hospitalist patient to sign out ama Time: 15:57 MDM - Skin/Abscess/Foreign Bdy Lab Data Result diagrams: 03/31/21 11:01 03/31/21 11:01 Labs: Lab Results 03/31/21 03/31/21 03/31/21 Range/Units 11:01 11:01 11:01 WBC 6.7 (4.8-10.8) X10*3/uL RBC 3.34 L (4.60-5.80) X10*6/uL Hgb 9.8 L (14.0-18.0) g/dl Hct 30.7 L (42.0-52.0) % MCV 91.9 (80.0-98.0) fL MCH 29.3 (27.0-33.0) pg MCHC 31.9 (31.0-36.0) g/dl RDW 15.8 (11.0-16.0) % Plt Count 140 L (160-400) X10*3/uL MPV 8.5 L (9.4-12.4) fL Immature Gran % (Auto) 0.3 (0.0-0.4) % Neut % (Auto) 72.0 (45-73) % Lymph % (Auto) 16.7 L (20-40) % Weston % (Auto) 8.5 (2-11) % Eos % (Auto) 2.4 (0-4) % Baso % (Auto) 0.1 (0-2) % Lymph # (Auto) 1.1 L (1.2-4.9) X10*3/uL Weston # (Auto) 0.6 (0.1-1.2) X10*3/uL Eos # (Auto) 0.2 (0.0-0.4) X10*3/uL Baso # (Auto) 0.0 (0.0-0.2) X10*3/uL Abs Immat Gran (auto) 0.02 (0.00-0.03) X10*3/uL Absolute Neuts (auto) 4.8 (2.0-8.3) x10*3/uL Absolute Nucleated RBC 0.000 (0.0-0.012) X10*3/uL Nucleated RBC % (auto) 0.0 (0.0-0.2) /100WBC PT 14.6 H (9.9-13.0) SEC INR 1.3 H (0.9-1.1) APTT 35.7 (24.1-38.0) SEC Sodium 139 (135-145) mmol/L Potassium 3.3 (3.3-5.1) mmol/L Chloride 107 (96-108) mmol/L Carbon Dioxide 26 (22-29) mmol/L Anion Gap 9 L (12-20) BUN 10 (9-16) mg/dL Creatinine 0.56 (0.5-1.4) mg/dL Estim Creat Clear Calc 150.6 Estimated GFR > 60 Random Glucose 96 (60-115) mg/dL Calcium 8.1 L (8.4-10.2) mg/dL Total Bilirubin 0.6 (0.0-1.0) mg/dL Direct Bilirubin 0.4 (0.0-0.5) mg/dL AST 23 (5-37) U/L ALT 13 (0-40) U/L Alkaline Phosphatase 53 (39-117) U/L Total Protein 6.5 (6.5-8.0) g/dL Albumin 2.5 L (3.5-5.0) g/dL COVID-19 (TAMRA) (Negative) COVID-19 Clin Com 03/31/21 Range/Units 14:44 WBC (4.8-10.8) X10*3/uL RBC (4.60-5.80) X10*6/uL Hgb (14.0-18.0) g/dl Hct (42.0-52.0) % MCV (80.0-98.0) fL MCH (27.0-33.0) pg MCHC (31.0-36.0) g/dl RDW (11.0-16.0) % Plt Count (160-400) X10*3/uL MPV (9.4-12.4) fL Immature Gran % (Auto) (0.0-0.4) % Neut % (Auto) (45-73) % Lymph % (Auto) (20-40) % Weston % (Auto) (2-11) % Eos % (Auto) (0-4) % Baso % (Auto) (0-2) % Lymph # (Auto) (1.2-4.9) X10*3/uL Weston # (Auto) (0.1-1.2) X10*3/uL Eos # (Auto) (0.0-0.4) X10*3/uL Baso # (Auto) (0.0-0.2) X10*3/uL Abs Immat Gran (auto) (0.00-0.03) X10*3/uL Absolute Neuts (auto) (2.0-8.3) x10*3/uL Absolute Nucleated RBC (0.0-0.012) X10*3/uL Nucleated RBC % (auto) (0.0-0.2) /100WBC PT (9.9-13.0) SEC INR (0.9-1.1) APTT (24.1-38.0) SEC Sodium (135-145) mmol/L Potassium (3.3-5.1) mmol/L Chloride (96-108) mmol/L Carbon Dioxide (22-29) mmol/L Anion Gap (12-20) BUN (9-16) mg/dL Creatinine (0.5-1.4) mg/dL Estim Creat Clear Calc Estimated GFR Random Glucose (60-115) mg/dL Calcium (8.4-10.2) mg/dL Total Bilirubin (0.0-1.0) mg/dL Direct Bilirubin (0.0-0.5) mg/dL AST (5-37) U/L ALT (0-40) U/L Alkaline Phosphatase (39-117) U/L Total Protein (6.5-8.0) g/dL Albumin (3.5-5.0) g/dL COVID-19 (TAMRA) Negative (Negative) COVID-19 Clin Com See Note Discharge Plan Discharge Clinical Impression: Abscess of abdominal cavity Liver cirrhosis Qualifiers: Hepatic cirrhosis type: alcoholic cirrhosis Ascites presence: with ascites Qualified Code(s): K70.31 - Alcoholic cirrhosis of liver with ascites Patient Disposition: Left Against Medical Advice Instructions: Liver Abscess (ED), Cirrhosis (ED), Ascites (ED) Additional Instructions: you need to be admitted for your abdominal abscess please Prescriptions: New cephalexin 500 mg capsule 500 mg PO QID 10 Days Qty: 40 RF: 0 doxycycline hyclate 100 mg capsule 100 mg PO BID Qty: 20 RF: 0 No Action tamsulosin 0.4 mg capsule 1 cap PO DAILY RF: 0 fentanyl 37.5 mcg/hour patch 72 hour 1 patch topical Q3D RF: 0 furosemide 40 mg Tablet 40 mg PO BID@0900,1800 Qty: 60 RF: 0 polyethylene glycol 3350 17 gram Powder In Packet 17 g PO BIDPC Qty: 30 RF: 0 nicotine (polacrilex) 2 mg Gum 2 mg buccal Q1H PRN (Reason: nicotein) Qty: 30 RF: 0 melatonin 3 mg Tablet 6 mg PO BEDTIME PRN (Reason: Insomnia) Qty: 30 RF: 0 spironolactone 25 mg Tablet 50 mg PO BID@0900,1800 Qty: 30 RF: 0 docusate sodium 100 mg Capsule 100 mg PO BID Qty: 30 RF: 0 gabapentin 100 mg Capsule 100 mg PO TID Qty: 60 RF: 0 methadone [Methadose] 10 mg/mL Concentrate 55 mg PO DAILY Qty: 30 RF: 0 doxycycline hyclate 100 mg capsule 100 mg PO BID 10 Days Qty: 20 RF: 0 cephalexin 500 mg tablet 500 mg PO Q6H 10 Days Qty: 40 RF: 0 Referrals: Garo Chavez MD [Physician] - 3 days
[2021-03-31 11:25] LABS: MANUAL DIFF FLAG NO
[2021-03-31 11:27] LABS: Basophils Percent Auto 0.1 % (0-2); Eosinophils Absolute Auto 0.2 X10*3/uL (0.0-0.4); Eosinophils Percent Auto 2.4 % (0-4); Hematocrit 30.7 % (42.0-52.0); Hemoglobin 9.8 g/dl (14.0-18.0); Imm Gran Abs Auto 0.02 X10*3/uL (0.00-0.03); Imm Gran Pct Auto 0.3 % (0.0-0.4); Lymphocytes Absolute Auto 1.1 X10*3/uL (1.2-4.9); Lymphocytes Percent Auto 16.7 % (20-40); Mean Corpuscular HGB Conc 31.9 g/dl (31.0-36.0); Mean Corpuscular Hemoglobin 29.3 pg (27.0-33.0); Mean Corpuscular Volume 91.9 fL (80.0-98.0); Mean Platelet Volume 8.5 fL (9.4-12.4); Monocytes Absolute Auto 0.6 X10*3/uL (0.1-1.2); Monocytes Percent Auto 8.5 % (2-11); Neutrophils Absolute Auto 4.8 x10*3/uL (2.0-8.3); Platelet Count 140 X10*3/uL (160-400); Red Blood Count 3.34 X10*6/uL (4.60-5.80); Red Cell Distribution Width 15.8 % (11.0-16.0); White Blood Count 6.7 X10*3/uL (4.8-10.8)
[2021-03-31 11:35] LABS: INTERNATIONAL NORM RATIO 1.3 (0.9-1.1); Prothrombin Time 14.6 SEC (9.9-13.0)
[2021-03-31 11:38] LABS: Partial Thromboplastin Time 35.7 SEC (24.1-38.0)
[2021-03-31] MEDS: Piperacillin Sodium/Tazobactam 3.375 GM in 0.9 % Sodium Chloride 50 ML IV (11:44)
[2021-03-31 11:55] LABS: Alanine Aminotransferase 13 U/L (0-40); Albumin Level 2.5 g/dL (3.5-5.0); Alkaline Phosphatase 53 U/L (39-117); Anion Gap 9 (12-20); Aspartate Amino Transferase 23 U/L (5-37); Bilirubin Direct 0.4 mg/dL (0.0-0.5); Bilirubin Total 0.6 mg/dL (0.0-1.0); Blood Urea Nitrogen 10 mg/dL (9-16); Calcium 8.1 mg/dL (8.4-10.2); Carbon Dioxide 26 mmol/L (22-29); Chloride 107 mmol/L (96-108); Creatinine Clr Calc Pharmacy 150.6; Estimated Glomerular Filt Rate > 60; Glucose Random 96 mg/dL (60-115); Potassium 3.3 mmol/L (3.3-5.1); Sodium 139 mmol/L (135-145); Total Protein 6.5 g/dL (6.5-8.0)
[2021-03-31] MEDS: vancomycin HCL 1,500 MG in 0.9 % Sodium Chloride 500 ML 333.33 MG IV (13:10)
[2021-03-31 15:10] LABS: COVID-19 Test Negative (Negative)
--- NOTE | 2021-03-31 15:26 | PM.EVENT ---
Event Note Date of Service: 03/31/21 Event Note: Asked to evaluate the patient for inpatient admission. Patients chart reviewed and case d/w Dr. Florez + Dr. Chavez. CT findings concerning for abscess. Patient seen in [facility]. Informed him of the need for inpatient adimssion for antibiotics + possible surgical intervention. Patient had informed of the CT findings 03/30/2021 by the ED team as well, but he decided to leave against medical advice. I informed him that he would likely be hospitalized for several days for treatment, possibly more. He reports he is not ready for hospital admission at this time. He states that he needs to place his belongings in storage as he is currently homeless. As done by the ED team on 03/30/21, I have informed him of the high likeyhood of decompensation and ultimate with his suspected infection. 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 I have informed the ED provider of this. Should the patient change his mind or return to the ED, and if he is in agreement for admission, will come re-eval patient and admit him.
--- NOTE | 2021-03-31 15:27 | PHA.MEDREC ---
Pharmacy Consult ? Medication Reconciliation Pharmacy has completed the medication reconciliation. Patient was kicked out of hospice service. Per patient, he was on many medications including fentanyl, morphine, and methadone but stopped on 03/09/21. I added the medications, but did not confirm them. Thanks Damon
[2021-03-31 16:00] VITALS: BP 123/72; PULSE 91; RESP 16; TEMP 36.7; O2SAT 99
--- NOTE | 2021-03-31 16:21 | MHC.RECOVRN ---
Met with [place] [facility] [place] Pt familiar with t/w from previous admissions. Pt had been placed at [facility] and left there on 03/07/21. Pt had been on hospice, explained to t/w that he had met with landscape architect and planner, spoke with his children, and began burial arrangements. Pt very teary during conversation. On pt had the opportunity to spend the night in a hotel with a woman and decided it was worth leaving the facility since I was going to any night. Since then, pt has been trying to stay in hotels but has spent some nights outside. Pt reports using heroin approx 3 times since dc from [facility], 1-2 bags. Pt states I have no desire to do that. I didn't even feel withdrawal from all of the stuff hospice was giving me. Pt is hesitant to resume methadone since it will greatly decrease amount of facilities that will accept pt. Pt is requesting to leave AMA currently to move belongings from ex's porch to a storage unit. Pt states I'll definitely come back. I want to be here even if I have to spend 30 hours in the waiting room. Pt provided with t/w contact information and will follow up when pt returns to [facility].
== END 2021-04-01 08:06 | disposition left against medical advice (07) ==
PROVIDERS: Family Medicine; Emergency Provider Emergency Medicine
DX: K65.1 Peritoneal abscess (principal); K70.31 Alcoholic cirrhosis of liver with ascites; F10.20 Alcohol dependence, uncomplicated; Y90.9 Presence of alcohol in blood, level not specified; F11.20 Opioid dependence, uncomplicated; B19.20 Unspecified viral hepatitis C without hepatic coma; Z20.822 Contact with and (suspected) exposure to COVID-19
CPT/HCPCS: 36415; 80048; 80076; 85025; 85610; 85730; 87040; 87635; 96365; 96367; 99284; J2543; J3370

== ENCOUNTER 2021-04-01 01:16 | Inpatient (IN) | payer OTHER, SELFPAY ==
--- NOTE | ~2021-04-01 | IR_ITS ---
PROCEDURE: FLUOROSCOPY CLINICAL INFORMATION: Left upper abdominal wall draining wound. COMPARISON: Previous CT of the abdomen and pelvis 03/30/2021. TECHNIQUE: The left lateral upper abdominal wall wound was prepped using Betadine. A 4 Tamazight dilator was inserted into the wound. 5 mL of Omnipaque 300 contrast was injected under fluoroscopic guidance. Fluoroscopy time 0.5 minutes. DAP 86 CG Y per centimeter squared. 4 saved fluoroscopic images. FINDINGS: The left upper abdominal wall wound appears to communicate with the peritoneal space. IR/IR fluoroscopy <1hr IMPRESSION: Left abdominal wall wound communicates with the peritoneal space.
--- NOTE | ~2021-04-01 | CT_ITS ---
PROCEDURE: CT GUIDED ABSCESS DRAINAGE CLINICAL INFORMATION: Left upper quadrant abscess COMPARISON: Previous CT of the abdomen and pelvis 03/30/2021 TECHNIQUE: Procedure and risks and benefits including bleeding, infection and infection were discussed with the patient and informed consent was obtained. Limited axial images through the abdomen were performed. The left upper quadrant was prepped and draped in the usual sterile fashion. The skin and soft tissues were anesthetized with 1% lidocaine plain. Using CT guidance and a 5 Hong Konger rapid centesis catheter, access to the fluid collection under the left hemidiaphragm was obtained. Material was aspirated. Over an 035 wire and following serial dilatation, a 10.2 [place]er pigtail drainage catheter was positioned in the collection. 400 mL of purulent fluid was removed. Specimen was sent for Gram stain and culture. Patient received Versed 2 mg and fentanyl 100 mcg intravenously during the procedure. Total sedation time was [address] examination was performed using dose optimization techniques as appropriate, variously including the following: *Automated exposure control *Adjustment of mA and/or kV according to patient size (this includes techniques or standardized protocols for targeted exams where dose is matched to indication/reason for exam; i.e. extremities or head) *Use of iterative reconstruction technique DLP: 363 mGy-cm FINDINGS: There is a 4 x 10 cm fluid collection under the left hemidiaphragm that was targeted for drainage. The liver is cirrhotic. There is increasing generalized ascites compared to 03/30/2021 exam. There are multiple left rib fractures. No contrast is seen in the abscess or the ascitic fluid from previous left abdominal wall wound injection. CT/CT guided drainage IMPRESSION: Left-sided subdiaphragmatic abscess drainage using a 10.2 Hong Konger catheter.
--- NOTE | ~2021-04-01 | US_ITS ---
EXAMINATION: US ABDOMEN LIMITED CLINICAL INFORMATION: Ascites check prior to possible paracentesis.. COMPARISON: April 01, 2021 TECHNIQUE: 4 quadrant ultrasound of the abdomen and pelvis FINDINGS: Right upper quadrant: No ascites seen. Right lower quadrant: Trace ascites. Left lower quadrant: Small amount ascites with bowel anterior to it. Left upper quadrant: No ascites. US/US abdomen limited IMPRESSION: No significant fluid collection to safely drain
--- NOTE | ~2021-04-01 | CT_ITS ---
EXAMINATION: CT THORACENTESIS/PARACENTESIS CLINICAL INFORMATION: Ascites. Cirrhosis. Left upper quadrant abscess. COMPARISON: Previous CT of the abdomen and pelvis 03/30/2021 . TECHNIQUE: Procedure risks and benefits including bleeding and infection were discussed with the patient and informed consent was obtained. The right upper quadrant was prepped and draped in the usual sterile fashion. The skin and soft tissues were anesthetized with 1% lidocaine plain. Using CT guidance and a 5 Lithuanian rapid centesis catheter, access to the ascitic fluid was obtained. Approximately 500 mL of clear yellow serous fluid was removed. Specimen was sent for Gram stain and culture. This CT examination was performed using dose optimization techniques as appropriate, variously including the following: *Automated exposure control *Adjustment of mA and/or kV according to patient size (this includes techniques or standardized protocols for targeted exams where dose is matched to indication/reason for exam; i.e. extremities or head) *Use of iterative reconstruction technique DLP: 749 mGy-cm for combined CT guided abscess drainage and paracentesis. FINDINGS: There is a moderate to large amount of ascites. This is significantly increased from previous CT 03/30/2021. The questioned loculated fluid collection inferior to the left lobe of the liver on 03/30/2021 exam was targeted for paracentesis. CT/CT drain paracentesis IMPRESSION: CT-guided paracentesis.
[2021-04-01 01:20] VITALS: BP 142/86; PULSE 106; RESP 16; TEMP 37.1; O2SAT 98; BMI 19.2
--- NOTE | 2021-04-01 03:45 | ED_ITS ---
HPI - General Adult General Chief complaint: Skin/Abscess/Foreign Body Stated complaint: abscess Time Seen by Provider: 04/01/21 01:21 History of Present Illness HPI narrative: 35-year-old male with significant past medical history of alcohol dependency with liver cirrhosis as well opioid use disorder and recently known to have varices, small ascites, as well as loculated fluid collections anterior an adjacent to the left lobe of the liver. In addition, there is a fluid collection under the left hemidiaphragm with enhancing wall questionable for subdiaphragmatic abscess. Patient has come in and than left several times and at this time states that he is prepared to undergo the recommended IV antibiotics. He otherwise denies any current fevers, chills but states that the wound at the left lateral chest wall continues to drain purulence material. Related Data Home Medications Medication Instructions Recorded Confirmed fentanyl 37.5 mcg/hour transdermal 1 patch TOPICAL Q3D 03/31/21 patch tamsulosin 0.4 mg capsule 1 cap PO DAILY 03/31/21 Previous Rx's Medication Instructions Recorded docusate sodium 100 mg capsule 100 mg PO BID #30 cap 02/03/21 furosemide 40 mg tablet 40 mg PO BID@0900,1800 #60 tab 02/03/21 gabapentin 100 mg capsule 100 mg PO TID #60 cap 02/03/21 melatonin 3 mg tablet 6 mg PO BEDTIME PRN #30 tab 02/03/21 methadone 10 mg/mL oral 55 mg (5.5 mL) PO DAILY #30 ml 02/03/21 concentrate (Methadose) nicotine (polacrilex) 2 mg gum 2 mg BUCCAL Q1H PRN #30 ea 02/03/21 polyethylene glycol 3350 17 gram 17 g PO BIDPC #30 ea 02/03/21 oral powder packet spironolactone 25 mg tablet 50 mg PO BID@0900,1800 #30 tab 02/03/21 cephalexin 500 mg tablet 500 mg PO Q6H 10 Days #40 tab 03/22/21 doxycycline hyclate 100 mg capsule 100 mg PO BID 10 Days #20 cap 03/22/21 cephalexin 500 mg capsule 500 mg PO QID 10 Days #40 cap 03/31/21 doxycycline hyclate 100 mg capsule 100 mg PO BID #20 cap 03/31/21 Allergies Allergy/AdvReac Type Severity Reaction Status Date / Time No Known Allergies Allergy Verified 03/31/21 00:59 [No Known Allergies*] Review of Systems Review of Systems: Pertinent positives and negatives as stated in HPI. [facility] Past Medical History Source: nursing notes reviewed Medical History Ascites Ascites Cirrhosis Hematoma and contusion IV drug user Septic pulmonary embolism Social History Social History Household Members: Other Housing: Homeless Do you presently have visiting nurse or other home services: No Alcohol intake: current Alcohol intake frequency: 3 or more drinks per day Alcohol type: beer Patient Tobacco Use Status: Never used Tobacco Tobacco use type: Cigarette e-Cigarette/Vaping Use: Never Used Substance Use Type: Crack/Cocaine Advance Directives: No Advance Directives Information Provided: Yes service: No Physical Exam Vital Signs: Vital Signs: Last Vital Signs Temp 98.8 F 04/01/21 01:20 Pulse 106 H 04/01/21 01:20 Resp 16 04/01/21 01:20 BP 142/86 H 04/01/21 01:20 Pulse Ox 98 04/01/21 01:20 BMI result Body Mass Index 19.2 VITAL SIGNS: Reviewed. GENERAL: Cachectic, chronically ill, in no acute distress. HEAD: Normocephalic/atraumatic EYES: PERRLA, EOMI OROPHARYNX: no oral lesions noted, posterior pharynx clear LUNGS: Decreased breath sounds noted bilaterally without expiratory wheeze/rhonchi/rales or tachypnea. SpO2<98>, open wound noted to the left lateral chest wall that is able to have purulence material expressed when pressing in the left upper quadrant. CARDIOVASCULAR: Regular rate and rhythm without noted murmurs, no JVD but extensive bilateral lower extremity 1 to 2+ pitting edema ABDOMEN: Significantly distended with caput medusa consistent with liver cirrhosis, otherwise nontender MUSCULOSKELETAL: No tenderness, deformities, or effusions noted on gross inspection. EXTREMITIES: No cyanosis, clubbing, but bilateral lower extremities are edematous/erythematous. SKIN: Inspection of the skin reveals no rashes NEUROLOGIC: Alert and oriented x 4. Strength and sensation to light touch were grossly intact x 4. Course Course Course Narrative: 35-year-old male with significant past medical history of alcohol dependency and opioid use disorder with longstanding abscess with purulence drainage and as well as liver cirrhosis. Blood cultures are already pending, all lab work was recently done and will not be repeated at this time. COVID-19 was also completed and patient was noted to be negative. Patient received Zosyn and vancomycin in the ER in this case was discussed with the inpatient hospitalist who accepts admission. Discharge Plan Discharge Clinical Impression: Intra-abdominal abscess, Liver cirrhosis, Opioid dependence Patient Disposition: Admitted As Inpatient Prescriptions: No Action tamsulosin 0.4 mg capsule 1 cap PO DAILY RF: 0 fentanyl 37.5 mcg/hour patch 72 hour 1 patch topical Q3D RF: 0 cephalexin 500 mg capsule 500 mg PO QID 10 Days Qty: 40 RF: 0 doxycycline hyclate 100 mg capsule 100 mg PO BID Qty: 20 RF: 0 furosemide 40 mg Tablet 40 mg PO BID@0900,1800 Qty: 60 RF: 0 polyethylene glycol 3350 17 gram Powder In Packet 17 g PO BIDPC Qty: 30 RF: 0 nicotine (polacrilex) 2 mg Gum 2 mg buccal Q1H PRN (Reason: nicotein) Qty: 30 RF: 0 melatonin 3 mg Tablet 6 mg PO BEDTIME PRN (Reason: Insomnia) Qty: 30 RF: 0 spironolactone 25 mg Tablet 50 mg PO BID@0900,1800 Qty: 30 RF: 0 docusate sodium 100 mg Capsule 100 mg PO BID Qty: 30 RF: 0 gabapentin 100 mg Capsule 100 mg PO TID Qty: 60 RF: 0 methadone [Methadose] 10 mg/mL Concentrate 55 mg PO DAILY Qty: 30 RF: 0 doxycycline hyclate 100 mg capsule 100 mg PO BID 10 Days Qty: 20 RF: 0 cephalexin 500 mg tablet 500 mg PO Q6H 10 Days Qty: 40 RF: 0
[2021-04-01 04:42] LABS: Lactic Acid 1.9 mmol/L (0.5-2.0)
--- NOTE | 2021-04-01 05:18 | PM.IMHP ---
History of Present Illness Date of Service: 04/01/21 Chief Complaint: abd abscess This is a 35-year-old male with past medical history of abdominal ascites, cirrhosis, IV drug use who reports that he quit 4 months ago, as well as known subdiaphragmatic abscess who presented to the hospital on 03/30 for treatment but then left against medical advice. Returns today as he wants to be treated for the abscess. Patient reports that he was at [facility] which is a [facility] and was seen at an outside hospital bout 3 months ago regarding the abscess. He had the abscess drained but did not receive any treatment post drainage. He reports that for the past 3 months he has been manually draining the abscess as it contained a opening and therefore it was draining to the outside. He had dressing on it that was always soaked with chocolate color serosanguineous fluid. He denies any fever no chills. Denies any abdominal pain but reports that his abdomen has been increasingly distended. Reports no constipation urinary symptoms, no chest pain, no shortness of breath, and has had increased lower extremity edema. Patient reports that he is interested in hospice but at this time he would like full care because he wants to take care of his daughter is before he passes. CT of the abdomen done on 03/30 showed loculated fluid collections anterior and adjacent to the left lobe of the liver, there is a loculated fluid collection under the left hemidiaphragm with enhancing wall questionable for a subdiaphragmatic abscess. And distended fluid-filled stomach On arrival to the hospital today patient hemodynamically stable with a slightly elevated heart rate but otherwise no significant abnormal vitals. Labs pending pt will be admitted for further management Review of Systems Review of Systems: Yes all other systems are reviewed and are negative [facility] Medical History (Updated 04/01/21 @ 05:26 by Misael Ugarte MD) Ascites Ascites Cirrhosis Hematoma and contusion IV drug user Septic pulmonary embolism Pertinent family history: denies hx of CAD, liver ds Surgical History (Updated 04/01/21 @ 05:24 by Misael Ugarte MD) No pertinent past surgical history Social History Household Members: Other Housing: Homeless Do you presently have visiting nurse or other home services: No Alcohol intake: former Patient Tobacco Use Status: Never used Tobacco Tobacco use type: Cigarette e-Cigarette/Vaping Use: Never Used Use of substances other than those prescribed or required for medical reasons: Yes Substance Use Type: Crack/Cocaine Advance Directives: No Advance Directives Information Provided: Yes service: No Meds Allergies Allergy/AdvReac Type Severity Reaction Status Date / Time No Known Allergies Allergy Verified 03/31/21 00:59 [No Known Allergies*] Active Medications: Current Medications Acetaminophen (Acetaminophen 325 Mg Tablet) 650 mg PO Q6H PRN PRN Reason: Pain, Mild (Pain Scale 1-3) Docusate Sodium (Docusate Sodium 100 Mg Capsule) 100 mg PO DAILY PRN PRN Reason: Constipation Vancomycin HCl 1,250 mg/ (Sodium Chloride) 250 mls @ 166.667 mls/hr IV Q12H ALEX Piperacillin Sod/Tazobactam (Sod 3.375 gm/ Sodium Chloride) 50 mls @ 100 mls/hr IV Q6H ALEX Ondansetron HCl (Ondansetron Hcl 4 Mg/2 Ml Vial) 4 mg IVPUSH Q8H PRN PRN Reason: Nausea and Vomiting Pharmacy Consult (Consult Rx Vancomycin Dosing) 1 each MISCELLANE DAILY PRN PRN Reason: Consult order Pharmacy Consult (Consult Rx Vancomycin Dosing) 1 each MISCELLANE DAILY PRN PRN Reason: Consult order Sodium Chloride (0.9 % Sodium Chloride Flush 3 Ml Syringe) 3 ml IVFLUSH QSHIFT [facility] Home Medications Medication Instructions Recorded Confirmed Last Taken Type fentanyl 37.5 mcg/hour transdermal 1 patch TOPICAL Q3D 03/31/21 Unknown History patch tamsulosin 0.4 mg capsule 1 cap PO DAILY 03/31/21 Unknown History Physical Exam Vital Signs and Narrative: Vital Signs: Last Vital Signs Temp 98.8 F 04/01/21 01:20 Pulse 106 H 04/01/21 01:20 Resp 16 04/01/21 01:20 BP 142/86 H 04/01/21 01:20 Pulse Ox 98 04/01/21 01:20 BMI result Body Mass Index 19.2 Const: General: cooperative and no acute distress Orientation/consciousness: patient oriented x3 Eyes: General: appearance normal, both eyes and all related structures Resp: Effort & Inspection: normal respiratory effort Auscultation: clear to auscultation bilaterally Cardio: Rate: regular rate Rhythm: regular rhythm GI: Other: distended abdomen, hard, no guarding or rebound has left upper quadran draining abscess, no erythema Auscultation: normal bowel sounds Skin: General skin exam: no rashes or lesions noted Neuro: General: patient oriented x3 Cognition (Neuro): normal cognition Extrem: General: Yes normal to inspection and Yes no pedal edema Results Labs Labs: Laboratory Results - last 24 hr 04/01/21 04:26 Lactic Acid 1.9 Assessment and Plan (1) Subdiaphragmatic abscess: Status: Acute (2) Intra-abdominal abscess: Status: Acute (3) Liver cirrhosis: Status: Acute (4) Abdominal ascites: Status: Acute 35-year-old male with past medical history of liver cirrhosis, presents to the hospital after being diagnosed with intra-abdominal abscess on 03/30. # subdiaphragmatic/intra-abdominal abscess - has multiple abscesses in the stomach 1 in the subdiaphragmatic region on the left, as well as to around the liver - afebrile, no leukocytosis - will treat with broad-spectrum antibiotics - consult infectious disease - interventional radiology for possible drainage - general surgery - follow cultures # abd ascites - IR for possible paracentesis # liver cirrhosis - liver cirrhosis - abdominal ascites - IR for possible paracentesis - patient would like to discuss hospice, hospice service has been consulted - in the meantime will continue spironolactone and furosemide once reviewed by Nursing/pharmacy # IV drug use - reports being sober for the past 4 months - continue methadone DVT prophylaxis: Quality Stroke Does the patient have a stroke diagnosis?: No VTE Prior VTE?: No VTE Risk Level:: Medical - moderate - high VTE Device Contraindication: N/A - Device Ordered VTE Drug Contraindication: Treatment Not Indicated
[2021-04-01] MEDS: Piperacillin Sodium/Tazobactam 3.375 GM in 0.9 % Sodium Chloride 50 ML IV ×4 (06:09→22:33)
[2021-04-01] MEDS: vancomycin HCL 1,000 MG in 0.9 % Sodium Chloride 250 ML 270 MG IV (06:39)
--- NOTE | 2021-04-01 07:23 | PHA.PROG ---
Admission Date/Time: April 01, 2021 05:14 Indication: ABCESS; OTHER Weight in k.967 kg Adjusted body weight in Kg: [place] body weight in Kg: Obesity Dosing Indication % IBW: Vancomycin Loading Dose: 1500 MG ON 03/31 @0800 Current Vancomycin Dosing Regimen: 1250MG Q12H Vancomycin Monitoring using AUC goal of 400 - 600 range with trough as surrogate marker: AUC 464; TROUGH 12.1 Date and Time for next Vancomycin Level to be drawn: 04/02 @1600 Pharmacist Comments on Vancomycin Plan: Vancomycin dosing will take advantage of [employer] as a clinical decision support tool that uses Bayesian modeling to calculate individual patient's pharmacokinetic parameters and forecast the patient's drug concentration time course with the target goal AUC 24 range of 400 - 600 mg/L/hr.
--- NOTE | 2021-04-01 07:26 | P.CONGS_ITS ---
History of Present Illness Consult details Consult date: 04/01/21 Requesting physician: Misael Ugarte Narrative: 35-year-old male patient with history of alcohol abuse, cirrhosis, and known history of left chest trauma resulting in a rib fracture enlarge contain hematoma previously evaluated in January 2021. Patient apparently had a drainage procedure performed at an outside hospital with production of a chocolate appearing fluid, suggestive of a old hematoma. He now reports foul- smelling discharge from the same site in the left chest. He is able to push on his left upper quadrant and express warm this chocolate fluid to ?empty the collection.? Presents to the emergency department for further evaluation of this foul-smelling discharge. CT of chest abdomen and pelvis revealed what is called a subdiaphragmatic fluid collection which appears to be the same muscular hematoma in the left chest wall. Also noted is a cirrhotic appearing liver and ascites. Review of Systems Review of Systems: Yes all other systems are reviewed and are negative Constitutional: Constitutional: Reports body ache(s), Denies fever(s) and Reports poor appetite Cardiovascular: Cardiovascular: Reports chest pain and Denies palpitations Respiratory: Respiratory: Reports pain on inspiration and Reports pain with cough Gastrointestinal: Gastrointestinal: Reports abdominal pain and Reports bloating Musculoskeletal: Musculoskeletal: Reports as per HPI Integumentary/Breasts: Skin/Breast: Reports as per HPI Endocrine: Endocrine: Denies palpitations PMFSH Past Medical History Medical History (Updated 04/01/21 @ 05:26 by Misael Ugarte MD) Ascites Ascites Cirrhosis Hematoma and contusion IV drug user Septic pulmonary embolism Surgical History Surgical History (Updated 04/01/21 @ 05:24 by Misael Ugarte MD) No pertinent past surgical history Social History Social History Household Members: Other Housing: Homeless Do you presently have visiting nurse or other home services: No Alcohol intake: former Patient Tobacco Use Status: Never used Tobacco Tobacco use type: Cigarette e-Cigarette/Vaping Use: Never Used Use of substances other than those prescribed or required for medical reasons: Yes Substance Use Type: Crack/Cocaine Advance Directives: No Advance Directives Information Provided: Yes service: No Meds Allergies Allergy/AdvReac Type Severity Reaction Status Date / Time No Known Allergies Allergy Verified 03/31/21 00:59 [No Known Allergies*] Active Medications: Current Medications Acetaminophen (Acetaminophen 325 Mg Tablet) 650 mg PO Q6H PRN PRN Reason: Pain, Mild (Pain Scale 1-3) Docusate Sodium (Docusate Sodium 100 Mg Capsule) 100 mg PO DAILY PRN PRN Reason: Constipation Vancomycin HCl 1,250 mg/ (Sodium Chloride) 250 mls @ 166.667 mls/hr IV Q12H ALEX Piperacillin Sod/Tazobactam (Sod 3.375 gm/ Sodium Chloride) 50 mls @ 100 mls/hr IV Q6H ALEX Ondansetron HCl (Ondansetron Hcl 4 Mg/2 Ml Vial) 4 mg IVPUSH Q8H PRN PRN Reason: Nausea and Vomiting Pharmacy Consult (Consult Rx Vancomycin Dosing) 1 each MISCELLANE DAILY PRN PRN Reason: Consult order Sodium Chloride (0.9 % Sodium Chloride Flush 3 Ml Syringe) 3 ml IVFLUSH QSHIFT ALEX Home Medications Medication Instructions Recorded Confirmed Last Taken Type fentanyl 37.5 mcg/hour transdermal 1 patch TOPICAL Q3D 03/31/21 Unknown History patch tamsulosin 0.4 mg capsule 1 cap PO DAILY 03/31/21 Unknown History Physical Exam Vital Signs: Vital Signs: Last Vital Signs Temp 98.8 F 04/01/21 01:20 Pulse 106 H 04/01/21 01:20 Resp 16 04/01/21 01:20 BP 142/86 H 04/01/21 01:20 Pulse Ox 98 04/01/21 01:20 BMI result Body Mass Index 19.2 Const: General: awake and ill appearing Nutritional Appearance: cachectic Orientation/consciousness: patient oriented x3 HENMT: Head: Yes normocephalic and Yes atraumatic Ears: hearing grossly normal bilaterally Chest: Other: Open wound in the lower left chest which is currently dry with no discharge. There is a small area of surrounding erythema but no extensive redness to indicate underlying abscess. Chest/axillae images: 1. Site of drainage left chest Resp: Effort & Inspection: normal respiratory effort, no cough, not labored and no respiratory distress GI: Other: Marked abdominal distension suggestive of ascites, end-stage liver disease. Rectal Exam - Male: Yes deferred Skin: Other: Warm, dry, no rash Neuro: General: patient oriented x3 Extrem: Other: No cyanosis or edema Results Labs Labs: All other labs normal. Assessment and Plan (1) Subdiaphragmatic abscess: Status: Acute (2) Abdominal ascites: Status: Acute (3) Liver cirrhosis: Status: Acute 35-year-old male patient with known history of left chest trauma with associated rib fracture on the left side and unknown hematoma in the left chest now with drainage following a drainage procedure and outside hospital producing chocolate type fluid suggestive of old hematoma. Hematoma may have become secondarily infected due to this drainage procedure. This does not seem to be a subdiaphragmatic abscess rather an intramuscular hematoma/abscess. This macey ection may best be drained by Radiology with ultrasound guidance and possible tube placement. Antibiotics based on cultures of the fluid. Procedures Date of Service Date of Service: 04/01/21
[2021-04-01 07:29] LABS: Ethanol < 10 mg/dL
[2021-04-01 07:34] LABS: Lipase 53 U/L (8-78)
[2021-04-01 07:46] LABS: Anion Gap 8 (12-20); Blood Urea Nitrogen 12 mg/dL (9-16); Calcium 7.9 mg/dL (8.4-10.2); Carbon Dioxide 28 mmol/L (22-29); Chloride 109 mmol/L (96-108); Estimated Glomerular Filt Rate > 60; Glucose Random 123 mg/dL (60-115); Potassium 3.2 mmol/L (3.3-5.1); Sodium 142 mmol/L (135-145)
[2021-04-01 08:07] VITALS: BP 128/64; PULSE 101; RESP 18; TEMP 36.7; O2SAT 95
--- NOTE | 2021-04-01 09:50 | MHC.CM.PN ---
CM ATTEMPTED TO MEET WITH PT WHO WAS SLEEPING AND DOES NOT RESPOND TO HIS NAME PT DOES HAVE A HCP ON FILE HOWEVER IT IS INVALID IT WAS NEVER WITNESSED. CM WILL REVISIT AND ATTEMPT TO OBTAIN A NEW HCP PER PTS RECORDS, HE HAS BEEN ADMITTED MOST RECENTLY IN JANUARY OF 2021 AND IN NEED OF LT IV ABX, HOWEVER HE LEFT AMA.
--- NOTE | 2021-04-01 09:53 | MHC.CM.PN ---
CM ATTEMPTED TO MEET WITH PT WHO WAS SLEEPING AND DOES NOT RESPOND TO VERBAL STIMULI PT DOES HAVE A HCP ON FILE HOWEVER IT IS INVALID NO ONE WITNESSED IT PER PTS RECORDS, HE WAS ADMITTED IN JANUARY OF 2021 WITH A PLAN TO RECEIVE LT IV ABX AT A SNF, HOWEVER HE LEFT AMA PRIOR TO PLACEMENT. CM WILL REVISIT
--- NOTE | 2021-04-01 10:35 | PC.NURSE ---
Pt sleeping, awakens to name, aware of plan to OR this afternoon, no complaints of pain at this time. A&Ox3, VS as charted, abscess noted to R chest wall. Slightly jaundice in color, pt aware NPO at this time until after OR. Call buchanan within reach. Will continue to monitor.
--- NOTE | 2021-04-01 13:03 | P.CNID_ITS ---
History of Present Illness Data of Consult Service Date: 04/01/21 Requesting physician: Loco To Primary Care Provider: None Physician HPI Reason for consult: abscess liver ?bacteremia He presents to hospital with weakness and abdominal pain. He has abscess anterior to liver He has had multiple visits to ER and left AMA. He has had intermittent blood cultures showing MRSA present since 01/02/2021. He has hepatitis C,active in January Review of Systems Verdana 4l Review of Systems: Yes all other systems are reviewed and Verdana 4d are negative [facility] Past Medical History Medical History (Updated 04/05/21 @ 00:02 by Iona Salinas) Ascites Ascites Cirrhosis Hematoma and contusion Hepatitis C IV drug user MRSA bacteremia Septic pulmonary embolism Family History Family history: reviewed and not pertinent Surgical History Surgical History No pertinent past surgical history Social History Social History Household Members: Other Housing: Homeless Do you presently have visiting nurse or other home services: No Alcohol intake: former Patient Tobacco Use Status: Never used Tobacco Tobacco use type: Cigarette e-Cigarette/Vaping Use: Never Used Substance Use Type: Heroin service: No Meds Allergies Allergy/AdvReac Type Severity Reaction Status Date / Time No Known Allergies Allergy Verified 03/31/21 00:59 [No Known Allergies*] Active Medications: Current Medications Acetaminophen (Acetaminophen 325 Mg Tablet) 650 mg PO Q6H PRN PRN Reason: Pain, Mild (Pain Scale 1-3) Docusate Sodium (Docusate Sodium 100 Mg Capsule) 100 mg PO DAILY PRN PRN Reason: Constipation Vancomycin HCl 1,250 mg/ (Sodium Chloride) 250 mls @ 166.667 mls/hr IV Q12H ALEX Piperacillin Sod/Tazobactam (Sod 3.375 gm/ Sodium Chloride) 50 mls @ 100 mls/hr IV Q6H ALEX Last Admin: 04/01/21 12:10 Dose: 100 mls/hr Documented by: Ondansetron HCl (Ondansetron Hcl 4 Mg/2 Ml Vial) 4 mg IVPUSH Q8H PRN PRN Reason: Nausea and Vomiting Pharmacy Consult (Consult Rx Vancomycin Dosing) 1 each MISCELLANE DAILY PRN PRN Reason: Consult order Sodium Chloride (0.9 % Sodium Chloride Flush 3 Ml Syringe) 3 ml IVFLUSH QSHIFT [facility] Last Admin: 04/01/21 10:32 Dose: Not Given Documented by: Physical Exam Verdana 4l Vital Signs: Verdana 4d Verdana 4d Vital Signs: Verdana 4d Verdana 4Bd Last Vital Signs Verdana 4d Wardrobe Consultant New 4d Wardrobe Consultant New 4d Temp 98.1 F 04/01/21 08:07 Wardrobe Consultant New 4d Pulse 101 H 04/01/21 08:07 Wardrobe Consultant New 4d Resp 18 04/01/21 08:07 BP 128/64 04/01/21 08:07 Pulse Ox 95 04/01/21 08:07 BMI result Body Mass Index 19.2 Const: General: cooperative HENMT: Head: Yes normal to inspection Mouth: Normal oral and palatal mucosa present Resp: Effort & Inspection: normal respiratory effort Cardio: Rate: regular rate Rhythm: regular rhythm Skin: General skin exam: no rashes or lesions noted Extrem: General: Yes normal to inspection Results Labs CBC & Chem 7: 04/04/21 06:20 04/04/21 06:20 Labs: BMP 04/01/21 07:01 Sodium 142 Potassium 3.2 L Chloride 109 H Carbon Dioxide 28 BUN 12 Creatinine 0.62 Calcium 7.9 L Assessment and Plan (1) Abdominal ascites: Status: Acute (2) Subdiaphragmatic abscess: Status: Acute There is concern over MRSA blood and abdomen surrounding liver He has left AMA and never completed course for MRSA infection (3) Liver cirrhosis: Status: Acute (4) Opioid dependence: Status: Acute (5) Hepatitis C: Plan Would stop IV Zosyn if gram positive cocci seen in blood and continue Vancomycin 4-6 weeks (would need to be placed?[facility]) If refuses IV po Doxycycline fo 6-8 weeks but poor choice and patient prognosis without therapy remains poor. IR to review?able to drain area around liver and culture. Addiction Medicine consult with OMAYRAD
--- NOTE | 2021-04-01 13:20 | PC.NURSE ---
Pt to OR at this time, plan to come back to overflow.
[2021-04-01] MEDS: iohexoL 300 MG/ML 50 ML INFUS..BTL IV (15:43)
--- NOTE | 2021-04-01 17:05 | HO.RADPN ---
RADIOLOGY Narrative Narrative: Left abdominal wall wound injected with contrast using 4 fr dilator. Wound communicated with abdominal cavity. LUQ abscess 10.2 fr drain placed. 400mL purulent fluid aspirated. Culture sent. RUQ paracentesis using 5 fr catheter. 500ml clear yellow fluid removed. Culture sent.
[2021-04-01 17:15] VITALS: BP 113/66; PULSE 94; RESP 14; TEMP 37.2; O2SAT 97
[2021-04-01 17:30] VITALS: BP 111/64; PULSE 96; RESP 14; TEMP 37.1; O2SAT 97
[2021-04-01] MEDS: Potassium Chloride Packet 20 MEQ PACKET PO (18:29)
[2021-04-01] MEDS: Albumin Human 25 % 100 ML IV (18:32)
[2021-04-01 18:33] VITALS: BP 106/63; PULSE 91; RESP 20; TEMP 37.7; O2SAT 98
[2021-04-01 19:15] LABS: MN% 96.4 %; PMN% 3.6 %; RBC Peritoneal Fluid < 0.002 X10*6/uL; WBC Peritoneal Fluid 0.279 X10*3/uL
[2021-04-01 20:38] LABS: BF Shift QC OK YES; Lymphocyte Peritoneal Fl 80 %; Monocytes Peritoneal Fl 12 %; Neutrophils Peritoneal Fluid 4 %; Other Peritioneal Fl 4 %
--- NOTE | 2021-04-01 21:20 | PC.NURSE ---
Pt ambulatory to and from bathroom. Strong smell of tobacco smoke noted in bathroom after pt left. Security called to remove belongings from pt. Uncapped needle also noted in pt belongings. Pt educated that smoking in the hospital is unsafe and unacceptable. Initially agreed but then became irate, stating he did not smoke, wants to leave AMA. MD Ugarte aware and to bedside. Pt states he is willing to stay if he can be cared for by a different RN. oracle erp developer Rosemarie jin, Gaviota VARGAS to assume care of pt at this time. Report given
[2021-04-01] MEDS: Morphine Sulfate 4 MG/ML CARTRIDGE IVPUSH (21:53)
[2021-04-01] MEDS: vancomycin HCL 1,250 MG in 0.9 % Sodium Chloride 250 ML 166.67 MG IV (22:33)
[2021-04-02] MEDS: Albumin Human 25 % 100 ML IV ×3 (00:07→12:21)
[2021-04-02] MEDS: Piperacillin Sodium/Tazobactam 3.375 GM in 0.9 % Sodium Chloride 50 ML IV ×4 (06:21→23:37)
[2021-04-02 07:13] LABS: MANUAL DIFF FLAG NO
[2021-04-02 07:15] LABS: Basophils Percent Auto 0.2 % (0-2); Eosinophils Absolute Auto 0.1 X10*3/uL (0.0-0.4); Eosinophils Percent Auto 1.8 % (0-4); Hematocrit 29.4 % (42.0-52.0); Hemoglobin 9.3 g/dl (14.0-18.0); Imm Gran Abs Auto 0.03 X10*3/uL (0.00-0.03); Imm Gran Pct Auto 0.5 % (0.0-0.4); Mean Corpuscular HGB Conc 31.6 g/dl (31.0-36.0); Mean Corpuscular Hemoglobin 29.2 pg (27.0-33.0); Mean Corpuscular Volume 92.5 fL (80.0-98.0); Mean Platelet Volume 8.3 fL (9.4-12.4); Monocytes Absolute Auto 0.6 X10*3/uL (0.1-1.2); Monocytes Percent Auto 8.6 % (2-11); Neutrophils Absolute Auto 4.8 x10*3/uL (2.0-8.3); Neutrophils Percent Auto 73.9 % (45-73); Platelet Count 131 X10*3/uL (160-400); Red Blood Count 3.18 X10*6/uL (4.60-5.80); Red Cell Distribution Width 15.8 % (11.0-16.0); White Blood Count 6.5 X10*3/uL (4.8-10.8)
[2021-04-02 07:32] LABS: Anion Gap 10 (12-20); Blood Urea Nitrogen 7 mg/dL (9-16); Calcium 8.1 mg/dL (8.4-10.2); Carbon Dioxide 24 mmol/L (22-29); Chloride 109 mmol/L (96-108); Creatinine Clr Calc Pharmacy 147.9; Estimated Glomerular Filt Rate > 60; Glucose Random 122 mg/dL (60-115); Potassium 3.5 mmol/L (3.3-5.1); Sodium 139 mmol/L (135-145)
--- NOTE | 2021-04-02 07:45 | PC.NURSE ---
ate breakfast now resting w eyes closed, easily woken, nad, requested bed adjustment and back to sleep , offers no complaints, alert, speech clear
[2021-04-02 07:54] VITALS: BP 115/69; PULSE 94; RESP 14; TEMP 36.9; O2SAT 96
--- NOTE | 2021-04-02 07:57 | P.PNIM_ITS ---
Subjective Subjective Date of Service: 04/02/21 Interval History: subdiaphargmatic abcess s/p drainge Review of Systems Denies any chest pain or shortness of breath or abdominal pain or fever chills or weakness numbness. Physical Exam Verdana 4l Vital Signs: Verdana 4d Verdana 4d Vital Signs: Verdana 4d Verdana 4Bd Last Vital Signs Verdana 4d Site Damage Prevention Technician New 4d Site Damage Prevention Technician New 4d Temp 98.5 F 04/02/21 07:54 Site Damage Prevention Technician New 4d Pulse 94 04/02/21 07:54 Site Damage Prevention Technician New 4d Resp 14 04/02/21 07:54 BP 115/69 04/02/21 07:54 Pulse Ox 96 04/02/21 07:54 BMI result Body Mass Index 19.2 Appearance: Alert.? Oriented X3.?ch sick patient Eyes: Pupils equal, round and reactive to light.? Sclera mild icteric.? ENT: Pharynx normal.? Moist mucous membranes. cvs: rrr, [id number] , no murmur res: clear to auscultation ,no rhonchii or wheezing abd: no rebound or guarding ,nt, bs present. ext pulses present , no cyanosis. neuro: axo3, moves all ext. Objective Data Active Medications Acetaminophen (Acetaminophen 325 Mg Tablet) 650 mg PO Q6H PRN PRN Reason: Pain, Mild (Pain Scale 1-3) Docusate Sodium (Docusate Sodium 100 Mg Capsule) 100 mg PO DAILY PRN PRN Reason: Constipation Piperacillin Sod/Tazobactam (Sod 3.375 gm/ Sodium Chloride) 50 mls @ 100 mls/hr IV Q6H [facility] Last Admin: 04/02/21 06:21 Dose: 100 mls/hr Documented by: SHANNAN Albumin Human (Kedbumin 25 %) 100 mls @ 100 mls/hr IV Q6H [facility] Stop: 04/02/21 12:59 Last Admin: 04/02/21 06:21 Dose: 100 mls/hr Documented by: SHANNAN Vancomycin HCl 1,250 mg/ (Sodium Chloride) 250 mls @ 166.667 mls/hr IV Q12H [facility] Morphine Sulfate (Morphine Sulfate 4 Mg/Ml Cartridge) 4 mg IVPUSH Q4H PRN; Protocol PRN Reason: Pain, Severe (Pain Scale 7-10) Last Admin: 04/01/21 21:53 Dose: 4 mg Documented by: SHANNAN Ondansetron HCl (Ondansetron Hcl 4 Mg/2 Ml Vial) 4 mg IVPUSH Q8H PRN PRN Reason: Nausea and Vomiting Pharmacy Consult (Consult Rx Vancomycin Dosing) 1 each MISCELLANE DAILY PRN PRN Reason: Consult order Sodium Chloride (0.9 % Sodium Chloride Flush 3 Ml Syringe) 3 ml IVFLUSH QSHIFT [facility] Last Admin: 04/02/21 00:13 Dose: Not Given Documented by: SHANNAN Non-Admin Reason: IV Running Labs CBC & Chem 7: 04/02/21 07:04 04/02/21 07:04 Labs: Laboratory Results - last 24 hr 04/01/21 04/02/21 04/02/21 16:45 07:04 07:04 MCV 92.5 MCH 29.2 MCHC 31.6 RDW 15.8 Plt Count 131 L MPV 8.3 L Immature Gran % (Auto) 0.5 H Neut % (Auto) 73.9 H Lymph % (Auto) 15.0 L [place] % (Auto) 8.6 Eos % (Auto) 1.8 Baso % (Auto) 0.2 Lymph # (Auto) 1.0 L [place] # (Auto) 0.6 Eos # (Auto) 0.1 Baso # (Auto) 0.0 Abs Immat Gran (auto) 0.03 Absolute Neuts (auto) 4.8 Absolute Nucleated RBC 0.000 Nucleated RBC % (auto) 0.0 Anion Gap 10 L Estim Creat Clear Calc 147.9 Estimated GFR > 60 Random Glucose 122 H Calcium 8.1 L Peritoneal WBC 0.279 Peritoneal RBC < 0.002 Periton Neutrophils 4 Periton Lymphocytes 80 Peritoneal Monocytes 12 Peritoneal Other Cells 4 Assessment and Plan (1) Subdiaphragmatic abscess: Status: Acute (2) Liver cirrhosis: Status: Acute Plan 35-year-old male with past medical history of liver cirrhosis, presents to the hospital after being diagnosed with intra-abdominal abscess on 03/30. 1.subdiaphragmatic/intra-abdominal abscess - has multiple abscesses in the stomach 1 in the subdiaphragmatic region on the left, as well as to around the liver afebrile, no leukocytosis s/p subdiaphragmatic abscess drainage, follow cultures continue with broad-spectrum antibiotics Id evaluation pending 2. abd ascites s/p paracentesis and albumin coming come in recent you have any question 3. liver cirrhosis - abdominal ascites s/p paracentesis h&p noted- patient would like to discuss hospice, hospice service has been consulted in the meantime will continue spironolactone and furosemide once reviewed by Nursing/pharmacy 4. IV drug use - reports being sober for the past 4 months - continue methadone DVT prophylaxis: Quality Stroke Does the patient have a stroke diagnosis?: No VTE Prior VTE?: No VTE Risk Level:: Medical - moderate - high VTE Device Contraindication: N/A - Device Ordered VTE Drug Contraindication: Treatment Not Indicated
--- NOTE | 2021-04-02 08:02 | PHA.MEDREC ---
Pharmacy Consult ? Medication Reconciliation Pharmacy has completed the medication reconciliation. Patient reports he takes no medications at home. Reports he did not take his ABX prescribed 03/31/20. He also had active furosemide 40 mg BID and tamuslosin 0.4 mg daily that he report not taking. Patient also reported he no longer going to a methadone clinic. Adalgisa Arguello, PharmD
[2021-04-02 08:23] LABS: Albumin Peritoneal Fluid 1.4
[2021-04-02 08:24] LABS: LDH Peritoneal Fluid 126
[2021-04-02 08:25] LABS: Glucose Peritoneal Fluid 86
[2021-04-02 09:36] VITALS: BP 121/79; PULSE 90; RESP 18; TEMP 36.8; O2SAT 97
[2021-04-02] MEDS: 0.9 % Sodium Chloride Flush 3 ML SYRINGE IVFLUSH ×3 (09:38→21:11)
[2021-04-02] MEDS: vancomycin HCL 1,250 MG in 0.9 % Sodium Chloride 250 ML 166.67 MG IV (09:52)
[2021-04-02] MEDS: Morphine Sulfate 4 MG/ML CARTRIDGE IVPUSH ×2 (11:23→21:23)
[2021-04-02 11:41] VITALS: BP 129/79; PULSE 84; RESP 18; TEMP 36.7; O2SAT 97
--- NOTE | 2021-04-02 12:09 | MHC.CM.PN ---
MET WITH PT WHO SAYS HE HAS BEEN LIVING ON THE STREETS SINCE HE LEFT [facility] HE SAYS HE HAD A MISUNDERSTANDING WITH [facility] AND HE IS SICK AND WANTS TO GO BACK OR HE WOULD GO ANYWHERE ELSE ..PT HAS A HEALTHCARE PROXY WHO IS CECILIA PRYOR [phone] PT IS [place] PCP IS [facility]
[2021-04-02 12:39] VITALS: BMI 19.2
--- NOTE | 2021-04-02 12:46 | MHC.CLN ---
NUTRITION ADDING ENSURE BID (700 KCAL, 40 K PROTEIN) TO IMPROVE NUTRITIONAL INTAKE.
[2021-04-02 15:29] VITALS: BP 127/80; PULSE 90; RESP 18; TEMP 37.3; O2SAT 97
--- NOTE | 2021-04-02 16:13 | P.PNID_ITS ---
Subjective Subjective Date of Service: 04/02/21 Critical Care Time (minutes): 15 Comment: he has drain in place left abdomen he has no complaints Objective Data Labs CBC & Chem 7: 04/02/21 07:04 04/02/21 07:04 Labs: Laboratory Results - last 24 hr 04/01/21 04/01/21 04/02/21 16:45 16:45 07:04 WBC 6.5 RBC 3.18 L Hgb 9.3 L Hct 29.4 L MCV 92.5 MCH 29.2 MCHC 31.6 RDW 15.8 Plt Count 131 L MPV 8.3 L Immature Gran % (Auto) 0.5 H Neut % (Auto) 73.9 H Lymph % (Auto) 15.0 L [place] % (Auto) 8.6 Eos % (Auto) 1.8 Baso % (Auto) 0.2 Lymph # (Auto) 1.0 L [place] # (Auto) 0.6 Eos # (Auto) 0.1 Baso # (Auto) 0.0 Abs Immat Gran (auto) 0.03 Absolute Neuts (auto) 4.8 Absolute Nucleated RBC 0.000 Nucleated RBC % (auto) 0.0 Sodium Potassium Chloride Carbon Dioxide Anion Gap BUN Creatinine Estim Creat Clear Calc Estimated GFR Random Glucose Calcium Peritoneal WBC 0.279 Peritoneal RBC < 0.002 Periton Neutrophils 4 Periton Lymphocytes 80 Peritoneal Monocytes 12 Peritoneal Other Cells 4 Peritoneal Tot Protein 3.0 Peritoneal Albumin 1.4 Peritoneal LDH 126 Peritoneal Glucose 86 04/02/21 07:04 WBC RBC Hgb Hct MCV MCH MCHC RDW Plt Count MPV Immature Gran % (Auto) Neut % (Auto) Lymph % (Auto) [place] % (Auto) Eos % (Auto) Baso % (Auto) Lymph # (Auto) [place] # (Auto) Eos # (Auto) Baso # (Auto) Abs Immat Gran (auto) Absolute Neuts (auto) Absolute Nucleated RBC Nucleated RBC % (auto) Sodium 139 Potassium 3.5 Chloride 109 H Carbon Dioxide 24 Anion Gap 10 L BUN 7 L Creatinine 0.57 Estim Creat Clear Calc 147.9 Estimated GFR > 60 Random Glucose 122 H Calcium 8.1 L Peritoneal WBC Peritoneal RBC Periton Neutrophils Periton Lymphocytes Peritoneal Monocytes Peritoneal Other Cells Peritoneal Tot Protein Peritoneal Albumin Peritoneal LDH Peritoneal Glucose Microbiology Microbiology Results: Microbiology 04/01/21 16:35 Abscess Intra-abdominal Gram Stain - Final 04/01/21 16:35 Abscess Intra-abdominal Routine Culture - Preliminary Culture in progress. 04/01/21 16:35 Abscess Intra-abdominal Anaerobic Culture - Preliminary Culture in progress. 04/01/21 16:35 Abdominal Fluid Gram Stain - Final 04/01/21 16:35 Abdominal Fluid Anaerobic Culture - Preliminary No growth to date. 04/01/21 16:35 Abdominal Fluid Body Fluid Culture - Preliminary No growth to date. Physical Exam Verdana 4l Vital Signs: Verdana 4d Verdana 4d Vital Signs: Verdana 4d Verdana 4Bd Last Vital Signs Verdana 4d Special Service Officer New 4d Special Service Officer New 4d Temp 99.1 F 04/02/21 15:29 Special Service Officer New 4d Pulse 90 04/02/21 15:29 Special Service Officer New 4d Resp 18 04/02/21 15:29 BP 127/80 04/02/21 15:29 Pulse Ox 97 04/02/21 15:29 BMI result Body Mass Index 19.2 Const: General: cooperative HENMT: Head: Yes normal to inspection Eyes: General: appearance normal, both eyes and all related structures Resp: Effort & Inspection: normal respiratory effort Cardio: Rate: regular rate Rhythm: regular rhythm GI: Palpation (GI): Soft to palpation and nontender Extrem: General: Yes normal to inspection Assessment and Plan Assessment and plan (1) Abdominal ascites: Problem details: Probable MRSA abdominal abscess and bacteremia Status: Acute Assessment and Plan: Will need group home IV Vancomycin for 4-6 weeks Stop Zosyn tomorrow if no other cultures of significance (2) Subdiaphragmatic abscess: Status: Acute (3) MRSA bacteremia: Status: Acute Time Spent With Patient Time: Total time spent is greater than 50% in coordination of care (as documented) at patient's floor/unit and/or counseling patient: Time with patient: 15 - 24 minutes
--- NOTE | 2021-04-02 16:38 | HO.ADDICT_ITS ---
History of Present Illness Date of Service: 04/02/2021 Chief Complaint: abscess Reason for Consult: OUD HPI Narrative: Patient is a 35 year old male with history of OUD, AUD, and liver cirrhosis, currently medically admitted with subdiaphragmmatic abscess and abdominal ascites. Patient is known to this web content writer via previous admission. History reviewed. Since last admission patient was residing at [facility] for several weeks and reportedly left [facility] at the end of February. At that time He reports he was taking methadone 30mg BID. Lost dose almost a month ago. Some history obtained from RSRN as patient was minimally engaged in interview--citing pain and irritability. He reported to RN that he had used 3X since leaving [facility]. He denied any withdrawal sx to RN when he abruptly discontinued methadone, and denied any withdrawal sx when seen by this web content writer. He was somewhat indifferent to restarting methadone, but agreeable to doing so. Past Psychiatric History: Not reviewed Review of Systems Constitutional: Reports as per HPI, Reports fatigue and Reports malaise Endocrine: Reports fatigue Diagnostics Vital Signs (24Hr): Vital Signs - 24 hr 04/01/21 17:15 04/01/21 17:30 04/01/21 18:33 Temperature 98.9 F 98.8 F 99.9 F Pulse Rate 94 96 91 Respiratory Rate 14 14 20 Blood Pressure 113/66 111/64 106/63 Pulse Oximetry 97 97 98 04/02/21 07:54 04/02/21 09:36 04/02/21 11:41 Temperature 98.5 F 98.2 F 98.0 F Pulse Rate 94 90 84 Respiratory Rate 14 18 18 Blood Pressure 115/69 121/79 129/79 Pulse Oximetry 96 97 97 04/02/21 15:29 Temperature 99.1 F Pulse Rate 90 Respiratory Rate 18 Blood Pressure 127/80 Pulse Oximetry 97 BMI result Verdana 4 Body Mass Index Verdana 4 19.2 Verdana 4 Verdana 4 Labs Results: 04/03/21 05:26 04/03/21 05:26 Labs: Laboratory Results - last 48 hr 04/01/21 04/01/21 04/01/21 04:26 07:01 07:01 WBC RBC Hgb Hct MCV MCH MCHC RDW Plt Count MPV Immature Gran % (Auto) Neut % (Auto) Lymph % (Auto) [place] % (Auto) Eos % (Auto) Baso % (Auto) Lymph # (Auto) [place] # (Auto) Eos # (Auto) Baso # (Auto) Abs Immat Gran (auto) Absolute Neuts (auto) Absolute Nucleated RBC Nucleated RBC % (auto) Sodium 142 Potassium 3.2 L Chloride 109 H Carbon Dioxide 28 Anion Gap 8 L BUN 12 Creatinine 0.62 Estim Creat Clear Calc 136.0 Estimated GFR > 60 Random Glucose 123 H Lactic Acid 1.9 Calcium 7.9 L Magnesium 2.0 Lipase 53 Peritoneal WBC Peritoneal RBC Periton Neutrophils Periton Lymphocytes Peritoneal Monocytes Peritoneal Other Cells Peritoneal Tot Protein Peritoneal Albumin Peritoneal LDH Peritoneal Glucose Ethyl Alcohol < 10 04/01/21 04/01/21 04/02/21 16:45 16:45 07:04 WBC 6.5 RBC 3.18 L Hgb 9.3 L Hct 29.4 L MCV 92.5 MCH 29.2 MCHC 31.6 RDW 15.8 Plt Count 131 L MPV 8.3 L Immature Gran % (Auto) 0.5 H Neut % (Auto) 73.9 H Lymph % (Auto) 15.0 L [place] % (Auto) 8.6 Eos % (Auto) 1.8 Baso % (Auto) 0.2 Lymph # (Auto) 1.0 L [place] # (Auto) 0.6 Eos # (Auto) 0.1 Baso # (Auto) 0.0 Abs Immat Gran (auto) 0.03 Absolute Neuts (auto) 4.8 Absolute Nucleated RBC 0.000 Nucleated RBC % (auto) 0.0 Sodium Potassium Chloride Carbon Dioxide Anion Gap BUN Creatinine Estim Creat Clear Calc Estimated GFR Random Glucose Lactic Acid Calcium Magnesium Lipase Peritoneal WBC 0.279 Peritoneal RBC < 0.002 Periton Neutrophils 4 Periton Lymphocytes 80 Peritoneal Monocytes 12 Peritoneal Other Cells 4 Peritoneal Tot Protein 3.0 Peritoneal Albumin 1.4 Peritoneal LDH 126 Peritoneal Glucose 86 Ethyl Alcohol 04/02/21 07:04 WBC RBC Hgb Hct MCV MCH MCHC RDW Plt Count MPV Immature Gran % (Auto) Neut % (Auto) Lymph % (Auto) [place] % (Auto) Eos % (Auto) Baso % (Auto) Lymph # (Auto) [place] # (Auto) Eos # (Auto) Baso # (Auto) Abs Immat Gran (auto) Absolute Neuts (auto) Absolute Nucleated RBC Nucleated RBC % (auto) Sodium 139 Potassium 3.5 Chloride 109 H Carbon Dioxide 24 Anion Gap 10 L BUN 7 L Creatinine 0.57 Estim Creat Clear Calc 147.9 Estimated GFR > 60 Random Glucose 122 H Lactic Acid Calcium 8.1 L Magnesium Lipase Peritoneal WBC Peritoneal RBC Periton Neutrophils Periton Lymphocytes Peritoneal Monocytes Peritoneal Other Cells Peritoneal Tot Protein Peritoneal Albumin Peritoneal LDH Peritoneal Glucose Ethyl Alcohol Imaging Radiology Impressions: ITS Impressions Fluoroscopy 04/01/21 15:44 IMPRESSION: Left abdominal wall wound communicates with the peritoneal space. Abscess Drainage CT 04/01/21 17:21 IMPRESSION: Left-sided subdiaphragmatic abscess drainage using a 10.2 [place]ic catheter. Abscess Drain[address] 04/01/21 17:44 IMPRESSION: CT-guided paracentesis. Mental Status Exam Mental Status Exam Patient Appearance: Appropriate (eyes closed entire interview) Mood Description: Blunted Affect Description: Blunted Judgement: Fair Medications Medications Current Medications Acetaminophen (Acetaminophen 325 Mg Tablet) 650 mg PO Q6H PRN PRN Reason: Pain, Mild (Pain Scale 1-3) Docusate Sodium (Docusate Sodium 100 Mg Capsule) 100 mg PO DAILY PRN PRN Reason: Constipation Piperacillin Sod/Tazobactam (Sod 3.375 gm/ Sodium Chloride) 50 mls @ 100 mls/hr IV Q6H [facility] Last Infusion: 04/02/21 12:20 Dose: Infused Documented by: Vancomycin HCl 1,250 mg/ (Sodium Chloride) 250 mls @ 166.667 mls/hr IV Q12H [facility] Last Infusion: 04/02/21 11:38 Dose: Infused Documented by: Methadone HCl (Methadone Hcl 20 Mg/2 Ml Oral.Conc) 10 mg PO BID [facility] Morphine Sulfate (Morphine Sulfate 4 Mg/Ml Cartridge) 4 mg IVPUSH Q4H PRN; Protocol PRN Reason: Pain, Severe (Pain Scale 7-10) Last Admin: 04/02/21 11:23 Dose: 4 mg Documented by: Ondansetron HCl (Ondansetron Hcl 4 Mg/2 Ml Vial) 4 mg IVPUSH Q8H PRN PRN Reason: Nausea and Vomiting Pharmacy Consult (Consult Rx Vancomycin Dosing) 1 each MISCELLANE DAILY PRN PRN Reason: Consult order Sodium Chloride (0.9 % Sodium Chloride Flush 3 Ml Syringe) 3 ml IVFLUSH QSHIFT [facility] Last Admin: 04/02/21 09:38 Dose: 3 ml Documented by: Allergies Allergies Allergy/AdvReac Type Severity Reaction Status Date / Time No Known Allergies Allergy Verified 03/31/21 00:59 [No Known Allergies*] Assessment & Plan Assessment & Plan (1) Opioid use disorder: Status: Acute Code(s): F11.90 - Opioid use, unspecified, uncomplicated Assessment and Plan: * methadone 10mg BID to start and will titrate as snecessary * monitor for sedation and hold doses if necessary I spent ___20___ minutes with the patient and/or on the patient floor today, greater than?50% of which was spent counseling/coordinating care. PMFSH Past Medical History Medical History (Updated 04/02/21 @ 16:14 by Jannet Zurita MD) Ascites Ascites Cirrhosis Hematoma and contusion Hepatitis C IV drug user Septic pulmonary embolism Family History Family history: reviewed and not pertinent Surgical History Surgical History No pertinent past surgical history Social History Social History Household Members: Other Housing: Homeless Do you presently have visiting nurse or other home services: No Alcohol intake: former Patient Tobacco Use Status: Never used Tobacco Tobacco use type: Cigarette e-Cigarette/Vaping Use: Never Used Substance Use Type: Heroin service: No
[2021-04-02 19:12] VITALS: BP 134/76; PULSE 80; RESP 18; TEMP 37.4; O2SAT 98
[2021-04-02 20:39] LABS: Vancomycin Trough 6.9 mcg/mL (10.0-20.0)
--- NOTE | 2021-04-02 20:53 | HE.PHANOTE ---
Pt had low trough, increased to 1500 mg q12, predicted auc = 451, trough =9.6
[2021-04-02] MEDS: vancomycin HCL 1,500 MG in 0.9 % Sodium Chloride 500 ML 333.33 MG IV (21:10)
[2021-04-02] MEDS: methADONE HCl 20 MG/2 ML ORAL.CONC 10 MG PO (21:11)
[2021-04-03] VITALS: BP 124/77; PULSE 78; RESP 18; TEMP 36.5; O2SAT 96
[2021-04-03 03:30] VITALS: BP 117/73; PULSE 78; RESP 17; TEMP 36.8; O2SAT 97
[2021-04-03] MEDS: Piperacillin Sodium/Tazobactam 3.375 GM in 0.9 % Sodium Chloride 50 ML IV ×4 (05:09→23:45)
[2021-04-03 05:47] LABS: Hematocrit 32.4 % (42.0-52.0); Hemoglobin 10.4 g/dl (14.0-18.0); Mean Corpuscular HGB Conc 32.1 g/dl (31.0-36.0); Mean Corpuscular Hemoglobin 29.1 pg (27.0-33.0); Mean Corpuscular Volume 90.5 fL (80.0-98.0); Mean Platelet Volume 8.8 fL (9.4-12.4); Platelet Count 151 X10*3/uL (160-400); Red Blood Count 3.58 X10*6/uL (4.60-5.80); Red Cell Distribution Width 15.4 % (11.0-16.0); White Blood Count 10.3 X10*3/uL (4.8-10.8)
[2021-04-03 06:28] LABS: Anion Gap 9 (12-20); Blood Urea Nitrogen 6 mg/dL (9-16); Carbon Dioxide 21 mmol/L (22-29); Chloride 110 mmol/L (96-108); Creatinine Clr Calc Pharmacy 168.7; Estimated Glomerular Filt Rate > 60; Glucose Random 103 mg/dL (60-115); Potassium 3.6 mmol/L (3.3-5.1); Sodium 136 mmol/L (135-145)
[2021-04-03 07:40] VITALS: BP 131/90; PULSE 67; RESP 16; TEMP 36.4; O2SAT 98
--- NOTE | 2021-04-03 09:04 | P.PNIM_ITS ---
Subjective Subjective Date of Service: 04/03/21 Interval History: cirrosis , subdiaphragmatic abcess?/hematoma Review of Systems still draning pinkish, hazy fluids in drain has some pain in area Patient denies any chest pain or abdominal pain or cough or phlegm Physical Exam Verdana 4l Vital Signs: Verdana 4d Verdana 4d Vital Signs: Verdana 4d Verdana 4Bd Last Vital Signs Verdana 4d Glass Ribbon Machine Operator New 4d Glass Ribbon Machine Operator New 4d Temp 97.5 F 04/03/21 07:40 Glass Ribbon Machine Operator New 4d Pulse 67 04/03/21 07:40 Glass Ribbon Machine Operator New 4d Resp 16 04/03/21 07:40 BP 131/90 H 04/03/21 07:40 Pulse Ox 98 04/03/21 07:40 BMI result Body Mass Index 19.2 Appearance: Alert.? Oriented X3.?ch sick patient Eyes: Pupils equal, round and reactive to light.? Sclera mild icteric.? cvs: rrr, [id number] res: clear to auscultation ,no rhonchii or wheezing has drain-draining pinkish hazyfluid abd: no rebound or guarding ,nt, bs present. ext pulses present , no cyanosis. neuro: axo3, moves all ext. Objective Data Active Medications Acetaminophen (Acetaminophen 325 Mg Tablet) 650 mg PO Q6H PRN PRN Reason: Pain, Mild (Pain Scale 1-3) Docusate Sodium (Docusate Sodium 100 Mg Capsule) 100 mg PO DAILY PRN PRN Reason: Constipation Piperacillin Sod/Tazobactam (Sod 3.375 gm/ Sodium Chloride) 50 mls @ 100 mls/hr IV Q6H [facility] Last Infusion: 04/03/21 05:41 Dose: 0 mls/hr Documented by: MARBIN Vancomycin HCl 1,500 mg/ (Sodium Chloride) 500 mls @ 333.333 mls/hr IV Q12H [facility] Last Infusion: 04/02/21 23:37 Dose: 0 mls/hr Documented by: MARBIN Methadone HCl (Methadone Hcl 20 Mg/2 Ml Oral.Conc) 10 mg PO BID [facility] Last Admin: 04/02/21 21:11 Dose: 10 mg Documented by: MARBIN Morphine Sulfate (Morphine Sulfate 4 Mg/Ml Cartridge) 4 mg IVPUSH Q4H PRN; Protocol PRN Reason: Pain, Severe (Pain Scale 7-10) Last Admin: 04/02/21 21:23 Dose: 4 mg Documented by: MARBIN Ondansetron HCl (Ondansetron Hcl 4 Mg/2 Ml Vial) 4 mg IVPUSH Q8H PRN PRN Reason: Nausea and Vomiting Pharmacy Consult (Consult Rx Vancomycin Dosing) 1 each MISCELLANE DAILY PRN PRN Reason: Consult order Sodium Chloride (0.9 % Sodium Chloride Flush 3 Ml Syringe) 3 ml IVFLUSH QSHIFT [facility] Last Admin: 04/02/21 21:11 Dose: 3 ml Documented by: MARBIN Labs CBC & Chem 7: 04/03/21 05:26 04/03/21 05:26 Labs: Laboratory Results - last 24 hr 04/02/21 04/03/21 04/03/21 20:10 05:26 05:26 MCV 90.5 MCH 29.1 MCHC 32.1 RDW 15.4 Plt Count 151 L MPV 8.8 L Absolute Nucleated RBC 0.000 Nucleated RBC % (auto) 0.0 Anion Gap 9 L Estim Creat Clear Calc 168.7 Estimated GFR > 60 Random Glucose 103 Calcium 8.0 L Vancomycin Trough 6.9 L Microbiology Microbiology Results: Microbiology 04/01/21 16:35 Gram Stain - Final Abscess Intra-abdominal Routine Culture - Preliminary Culture in progress. Anaerobic Culture - Preliminary Culture in progress. 04/01/21 16:35 Gram Stain - Final Abdominal Fluid Anaerobic Culture - Preliminary No growth to date. Body Fluid Culture - Preliminary No growth to date. Assessment and Plan (1) Abdominal ascites: Status: Acute (2) Subdiaphragmatic abscess: Status: Acute (3) Liver cirrhosis: Status: Acute Plan 35-year-old male with past medical history of liver cirrhosis, presents to the hospital after being diagnosed with intra-abdominal abscess on 03/30. 1.subdiaphragmatic/intra-abdominal abscess - has multiple abscesses in the stomach 1 in the subdiaphragmatic region on the left, as well as to around the liver afebrile, no leukocytosis s/p subdiaphragmatic abscess drainage, follow cultures chest drainage -mrsa , blood culture [id number] ascitis cultures pending continue with broad-spectrum antibiotics Id evaluation-cotinue vanco and zosyn(until ascitis cultures comes back) 2. abd ascites s/p paracentesis and albumin coming come in recent you have any question 3. liver cirrhosis - abdominal ascites s/p paracentesis h&p noted- patient would like to discuss hospice, hospice service has been consulted ?in the meantime will continue spironolactone and furosemide once reviewed by Nursing/pharmacy 4. IV drug use - reports being sober for the past 4 months - continue methadone DVT prophylaxis: Quality Stroke Does the patient have a stroke diagnosis?: No VTE Prior VTE?: No VTE Risk Level:: Medical - moderate - high VTE Device Contraindication: N/A - Device Ordered VTE Drug Contraindication: Treatment Not Indicated
--- NOTE | 2021-04-03 09:13 | MHC.CDI.CONC ---
CDI Concurrent Query Documentation Clarification: PHYSICIAN'S DOCUMENTATION REQUEST Date of Query: 04/03/2113 Patient Name: Gopal Rosa Admit Date: 04/01/21 Dear Doctor, A review of the medical record indicates additional documentation may be needed. Please review below and update the documentation accordingly. Risk Factors/Clinical Indicators/Treatments Lab findings: albumin 2.5 Albumin Human IV opiate dependence, cirrhosis, bmi 19.2, chronically ill. Based on the above, could you clarify in the Progress Notes the appropriate diagnosis, if significant, that supports the above abnormalities and additional evaluation, monitoring, and/or treatment rendered: Hypoalbuminemia or other etiology of lab findings Other (please specify) Unable to determine Use of terms such as suspected, likely, concern for, or probable (associated with a specific diagnosis that is being evaluated, monitored, or treated as if it exists) are acceptable and can be coded in the inpatient setting, when documented at the time of discharge. Thank you, Zhanna Tripathi [facility], CDIS Extension: [phone] Please use your independent medical judgment in providing your response. THIS QUERY IS PART OF THE PERMANENT MEDICAL RECORD Provider Response: Other Other Diagnosis: hypoalbuminemia sec to advanced liver dis and decreased po intake
[2021-04-03] MEDS: methADONE HCl 20 MG/2 ML ORAL.CONC 10 MG PO ×2 (10:11→22:05)
[2021-04-03] MEDS: vancomycin HCL 1,500 MG in 0.9 % Sodium Chloride 500 ML 333.3 MG IV ×2 (10:12→22:05)
[2021-04-03] MEDS: 0.9 % Sodium Chloride Flush 3 ML SYRINGE IVFLUSH ×2 (10:12→17:27)
[2021-04-03 12:00] VITALS: RESP 18
[2021-04-03] MEDS: Morphine Sulfate 4 MG/ML CARTRIDGE IVPUSH ×2 (12:25→18:43)
[2021-04-03 16:00] VITALS: BP 133/82; PULSE 71; RESP 17; TEMP 36.6; O2SAT 95
[2021-04-03 19:42] VITALS: BP 128/81; PULSE 88; RESP 18; TEMP 37.1; O2SAT 97
[2021-04-04] VITALS: BP 128/79; PULSE 65; RESP 16; TEMP 36.8; O2SAT 96
[2021-04-04 03:53] VITALS: BP 143/90; PULSE 63; RESP 16; TEMP 37.2; O2SAT 96
[2021-04-04] MEDS: Piperacillin Sodium/Tazobactam 3.375 GM in 0.9 % Sodium Chloride 50 ML IV ×2 (05:10→12:04)
[2021-04-04 06:45] LABS: Hematocrit 33.3 % (42.0-52.0); Hemoglobin 10.8 g/dl (14.0-18.0); Mean Corpuscular HGB Conc 32.4 g/dl (31.0-36.0); Mean Corpuscular Hemoglobin 29.1 pg (27.0-33.0); Mean Corpuscular Volume 89.8 fL (80.0-98.0); Mean Platelet Volume 8.5 fL (9.4-12.4); Platelet Count 189 X10*3/uL (160-400); Red Blood Count 3.71 X10*6/uL (4.60-5.80); Red Cell Distribution Width 15.6 % (11.0-16.0); White Blood Count 10.4 X10*3/uL (4.8-10.8)
[2021-04-04 07:02] LABS: Vancomycin Trough 15.4 mcg/mL (10.0-20.0)
[2021-04-04 07:15] LABS: Anion Gap 9 (12-20); Blood Urea Nitrogen 7 mg/dL (9-16); Calcium 7.9 mg/dL (8.4-10.2); Carbon Dioxide 23 mmol/L (22-29); Chloride 110 mmol/L (96-108); Creatinine Clr Calc Pharmacy 156.2; Estimated Glomerular Filt Rate > 60; Glucose Random 108 mg/dL (60-115); Potassium 3.9 mmol/L (3.3-5.1); Sodium 138 mmol/L (135-145)
--- NOTE | 2021-04-04 07:50 | P.PNIM_ITS ---
Subjective Subjective Date of Service: 04/04/21 Interval History: abcess ? Review of Systems seems abd pain improving Physical Exam Verdana 4l Vital Signs: Verdana 4d Verdana 4d Vital Signs: Verdana 4d Verdana 4Bd Last Vital Signs Verdana 4d Outreach Librarian New 4d Outreach Librarian New 4d Temp 98.9 F 04/04/21 03:53 Outreach Librarian New 4d Pulse 63 04/04/21 03:53 Outreach Librarian New 4d Resp 16 04/04/21 03:53 BP 143/90 H 04/04/21 03:53 Pulse Ox 96 04/04/21 03:53 BMI result Body Mass Index 19.2 Appearance: Alert.? Oriented X3.?ch sick patient Eyes: Pupils equal, round and reactive to light.? Sclera mild icteric.? cvs: rrr, [id number] res: clear to auscultation ,no rhonchii or wheezing has drain-draining pinkish hazyfluid abd: no rebound or guarding ,nt, bs present. ext pulses present , no cyanosis. neuro: axo3, moves all ext. Objective Data Active Medications Acetaminophen (Acetaminophen 325 Mg Tablet) 650 mg PO Q6H PRN PRN Reason: Pain, Mild (Pain Scale 1-3) Docusate Sodium (Docusate Sodium 100 Mg Capsule) 100 mg PO DAILY PRN PRN Reason: Constipation Piperacillin Sod/Tazobactam (Sod 3.375 gm/ Sodium Chloride) 50 mls @ 100 mls/hr IV Q6H [facility] Last Infusion: 04/04/21 05:40 Dose: 0 mls/hr Documented by: MARBIN Vancomycin HCl 1,500 mg/ (Sodium Chloride) 500 mls @ 333.333 mls/hr IV Q12H [facility] Last Infusion: 04/03/21 23:53 Dose: 0 mls/hr Documented by: MARBIN Methadone HCl (Methadone Hcl 20 Mg/2 Ml Oral.Conc) 10 mg PO BID [facility] Last Admin: 04/03/21 22:05 Dose: 10 mg Documented by: MARBIN Morphine Sulfate (Morphine Sulfate 4 Mg/Ml Cartridge) 4 mg IVPUSH Q4H PRN; Protocol PRN Reason: Pain, Severe (Pain Scale 7-10) Last Admin: 04/03/21 18:43 Dose: 4 mg Documented by: NARENDRA Ondansetron HCl (Ondansetron Hcl 4 Mg/2 Ml Vial) 4 mg IVPUSH Q8H PRN PRN Reason: Nausea and Vomiting Pharmacy Consult (Consult Rx Vancomycin Dosing) 1 each MISCELLANE DAILY PRN PRN Reason: Consult order Sodium Chloride (0.9 % Sodium Chloride Flush 3 Ml Syringe) 3 ml IVFLUSH QSHIFT [facility] Last Admin: 04/04/21 00:02 Dose: Not Given Documented by: MARBIN Non-Admin Reason: IV Running Labs CBC & Chem 7: 04/04/21 06:20 04/04/21 06:20 Labs: Laboratory Results - last 24 hr 04/04/21 04/04/21 04/04/21 06:20 06:20 06:20 MCV 89.8 MCH 29.1 MCHC 32.4 RDW 15.6 Plt Count 189 D MPV 8.5 L Absolute Nucleated RBC 0.000 Nucleated RBC % (auto) 0.0 Anion Gap 9 L Estim Creat Clear Calc 156.2 Estimated GFR > 60 Random Glucose 108 Calcium 7.9 L Vancomycin Trough 15.4 Microbiology Microbiology Results: Microbiology 04/01/21 16:35 Gram Stain - Final Abdominal Fluid Anaerobic Culture - Preliminary No growth to date. Body Fluid Culture - Preliminary No growth to date. 04/01/21 16:35 Gram Stain - Final Abscess Intra-abdominal Routine Culture - Preliminary Culture in progress. Anaerobic Culture - Preliminary Culture in progress. Assessment and Plan (1) Subdiaphragmatic abscess: Status: Acute Plan 35-year-old male with past medical history of liver cirrhosis, presents to the hospital after being diagnosed with intra-abdominal abscess on 03/30. 1.subdiaphragmatic/intra-abdominal abscess - has multiple abscesses in the stomach 1 in the subdiaphragmatic region on the left, as well as to around the liver afebrile, no leukocytosis s/p subdiaphragmatic abscess drainage, follow cultures chest drainage -mrsa , blood culture [id number] ascitis cultures pending continue with broad-spectrum antibiotics Id evaluation-cotinue vanco and zosyn(until ascitis cultures comes back) need ID follow up 2. abd ascites s/p paracentesis and albumin coming come in recent you have any question 3. liver cirrhosis - abdominal ascites s/p paracentesis h&p noted- patient would like to discuss hospice, hospice service has been consulted ?in the meantime will continue spironolactone and furosemide once reviewed by Nursing/pharmacy 4. IV drug use - reports being sober for the past 4 months - continue methadone DVT prophylaxis: Quality Stroke Does the patient have a stroke diagnosis?: No VTE Prior VTE?: No VTE Risk Level:: Medical - moderate - high VTE Device Contraindication: N/A - Device Ordered VTE Drug Contraindication: Treatment Not Indicated
--- NOTE | 2021-04-04 07:50 | HE.PHANOTE ---
Vancomycin Dosing Addendum Pt to continue on 1500 mg q12h. Pt trough 15.4 today. Next trough 04/05/21 @1999.
[2021-04-04 08:00] VITALS: BP 122/77; PULSE 76; RESP 18; TEMP 36.3; O2SAT 97
[2021-04-04] MEDS: methADONE HCl 20 MG/2 ML ORAL.CONC 10 MG PO (10:04)
[2021-04-04] MEDS: 0.9 % Sodium Chloride Flush 3 ML SYRINGE IVFLUSH (10:05)
[2021-04-04] MEDS: vancomycin HCL 1,500 MG in 0.9 % Sodium Chloride 500 ML 333.3 MG IV (10:05)
[2021-04-04 11:53] VITALS: BP 129/80; PULSE 77; RESP 18; TEMP 36.9; O2SAT 98
--- NOTE | 2021-04-04 14:27 | MHC.CM.PN ---
[facility] FACILITIES UPDATED IN [facility] CURRENTLY AWAITING I.D. INPUT FOR CHOSEN ABX TREATMENT CASE MANAGEMENT FOLLOWING
--- NOTE | 2021-04-04 14:46 | MHC.RECOVRN ---
Met with pt this morning to f/u regarding methadone initiation. Pt states it's not nearly enough. When asked about increasing dose, pt states If I need to go somewhere I don't want to be on it. If I don't have to, yeah, I want to increase. T/w spoke with CM who informed t/w that pt will in fact need antibiotics. Will follow up with pt to discuss plan.
--- NOTE | 2021-04-04 15:53 | MHC.CLN ---
NUTRITION CONSULT FOR POOR INTAKE. DIET=REGULAR WITH ENSURE BID. SUPPLEMENT PROVIDES 700 KCAL, 40 G PROTEIN. REVIEW OF INTAKE SHOWS 4 MEALS GREATER THAN OR EQUAL TO 75%. SUSPECT INTAKE WILL IMPROVE ABDOMINAL PAIN RESOLVES. CONTINUE CURRENT AND SUPPLEMENT.
--- NOTE | 2021-04-04 16:30 | MHC.RECOVRN ---
Met with pt to f/u regarding plan for methadone since pt will need to be placed at a SNF for antibiotics. Upon entering room, pts RN as well as hospitalist present. Pt informing them he would like to be discharged. Pt upset over not being able to have belongings out of decon. Pt would like debit card to order food as well as clothes. T/w spoke with observatory director who also came to pts room. Pt not able to have belongings due to contraband being present and inability to search. Pt also informed there is a no visitor policy and unclear if food can even be delivered to the hospital. Pt would like to proceed with self directed discharge. T/w encouraged pt to return if needed, pt agreeable. Pt understands the risks of leaving without completing treatment, discussed at length with the hospitalist. Pt plans to be picked up by friend and spend the night there.
--- NOTE | 2021-04-04 16:46 | P.DS_ITS ---
DS: Providers Provider Date of Service: 04/04/21 Date of admission: 04/01/21 05:14 Primary care physician: Alberto Cole MD Consults: 04/01/21 05:13 Consult to Infectious Diseases Routine Consulting Provider: Jannet Zurita Reason for consultation: abscess Has provider been notified: No 04/01/21 05:26 Consult to General Surgery Routine Consulting Provider: Garo Chavez Reason for consultation: intaabdominal abscess 04/02/21 17:25 Addiction Medicine Routine Consulting Provider: Elvira Chavez Reason for consultation: drug abuse Has provider been notified: No 04/04/21 14:10 Consult to Gastroenterology Routine Consulting Provider: Tiny Stahl Reason for consultation: advanced liver dis /subdiaphragmatic abcess s/p drain Has provider been notified: No DS: Diagnosis Discharge Diagnosis (1) Subdiaphragmatic abscess: Status: Acute DS: Summary Hospital Course Hospital Course: 35-year-old male with past medical history of abdominal ascites, cirrhosis, IV drug use who reports that he quit 4 months ago, as well as known subdiaphragmatic abscess who presented to the hospital on 03/30 for treatment but then left against medical advice.? Returns today as he wants to be treated for the abscess.? Patient reports that he was at [facility] which is a senior living and was seen at an outside hospital bout 3 months ago regarding the abscess.? He had the abscess drained but did not receive any treatment post drainage.? He reports that for the past 3 months he has been manually draining the abscess as it contained a opening and therefore it was draining to the outside.? He had dressing on it that was always soaked with chocolate color serosanguineous fluid.? He denies any fever no chills.? Denies any abdominal pain but reports that his abdomen has been increasingly distended.? Reports no constipation urinary symptoms, no chest pain, no shortness of breath, and has had increased lower extremity edema.? Patient reports that he is interested in hospice but at this time he would like full care because he wants to take care of his daughter is before he passes. CT of the abdomen done on 03/30 showed loculated fluid collections anterior and adjacent to the left lobe of the liver, there is a loculated fluid collection under the left hemidiaphragm with enhancing wall questionable for a subdiaphragmatic abscess.? And distended fluid-filled stomach On arrival to the hospital today patient hemodynamically stable with a slightly elevated heart rate but otherwise no significant abnormal vitals.? Labs pending pt will be admitted for further management. Hospital course: Patient has advanced liver disease, came to the hospital due to subdiaphragmatic collection possible abscess and ascites. Patient was started on IV antibiotic and drain was placed in the subdiaphragmatic area which drainage lopez seems slowly improving and blood cultures so far negative subdiaphragmatic collection culture show MRSA , acetic fluid also grew staph aureus- patient decided to leave against medical advise, he is alert oriented discussed with him in detail the risks of leaving against medical advice including sepsis, worsening of subdiaphragmatic collection, ascitis including , he understands and still wants to leave. Patient also insisted to removed his drain- so IR has removed the drain before he left. antibiotic sent to patient pharmacy, patient is aware. In addition patient was advised if any new fever abdominal pain any breathing issues or any new symptoms can come to the nearest emergency room for prompt attention. Assessment and plan time spent 50 minutes and 50% time spent on counseling. Significant findings: As above. Procedures performed: None. Treatment and response: As above. Complications: None. Time Spent with Patient Time attestation: Total time spent providing and/or coordinating discharge services: Discharge coordination time: Greater than 30 minutes Quality: Stroke Does the patient have a stroke diagnosis?: No Physical Exam Verdana 4l Vital Signs: Verdana 4d Verdana 4d Vital Signs: Verdana 4d Verdana 4Bd Last Vital Signs Verdana 4d Elevating Grader Operator New 4d Elevating Grader Operator New 4d Temp 98.4 F 04/04/21 11:53 Elevating Grader Operator New 4d Pulse 77 04/04/21 11:53 Elevating Grader Operator New 4d Resp 18 04/04/21 11:53 BP 129/80 04/04/21 11:53 Pulse Ox 98 04/04/21 11:53 BMI result Body Mass Index 19.2 Appearance: Alert.? Oriented X3.?ch sick patient Eyes: Pupils equal, round and reactive to light.? Sclera mild icteric.? cvs: rrr, [id number] res: clear to auscultation ,no rhonchii or wheezing drain taken out at time of ama. abd: no rebound or guarding ,nt, bs present. ext pulses present , no cyanosis. neuro: axo3, moves all ext. DS: Data Data Completed and Pending Completed studies during hospitalization [Text1]: Procedures Drainage of Peritoneal Cavity, Percutaneous Approach (01/17/21) Insertion of Infusion Device into Right External Jugular Vein, Percutaneous Approach (01/15/21) Insertion of Infusion Device into Superior Vena Cava, Percutaneous Approach () Labs on day of discharge: Laboratory Results - last 24 hr 04/04/21 04/04/21 04/04/21 06:20 06:20 06:20 WBC 10.4 RBC 3.71 L Hgb 10.8 L Hct 33.3 L MCV 89.8 MCH 29.1 MCHC 32.4 RDW 15.6 Plt Count 189 D MPV 8.5 L Absolute Nucleated RBC 0.000 Nucleated RBC % (auto) 0.0 Sodium 138 Potassium 3.9 Chloride 110 H Carbon Dioxide 23 Anion Gap 9 L BUN 7 L Creatinine 0.54 Estim Creat Clear Calc 156.2 Estimated GFR > 60 Random Glucose 108 Calcium 7.9 L Vancomycin Trough 15.4 Preliminary micro results at discharge 04/01/21 16:35 Routine Culture - Preliminary Abscess Intra-abdominal Staphylococcus aureus Streptococcus viridans group Anaerobic Culture - Preliminary Culture in progress. 04/01/21 16:35 Anaerobic Culture - Preliminary Abdominal Fluid No growth to date. Additional Comments Additional comments: ?CT/CT abdomen pelvis w con IMPRESSION: Cirrhotic-appearing liver. This demonstrates very heterogeneous enhancement and it is difficult to exclude a focal liver lesion. Dedicated liver MRI recommended. Splenomegaly and varices. Ascites. Very small amount of free ascites. There are loculated fluid collections anterior and adjacent to the left lobe of the liver. There is a loculated fluid collection under the left hemidiaphragm with enhancing wall questionable for a subdiaphragmatic abscess. Constipation. Distended fluid-filled stomach. ? Fleischner guidelines were followed. CT/CT drain paracentesis IMPRESSION: CT-guided paracentesis. US/US abdomen limited IMPRESSION: No significant fluid collection to safely drain ?CT/CT chest w con IMPRESSION: Resolved pulmonary cavitary nodules. New atelectasis at the lung bases and small bilateral pleural effusions. Soft tissue swelling over the left posterior lateral chest wall and left eighth and ninth rib fractures. No chest wall abscess is seen. ? Fleischner guidelines were followed. Collected: 04/01/21 Status: RES Req#: [id number] Received: 04/01/21 Source: Abs Intabd Sp Desc: Subm Dr: Ju Russo MD Ordered: Anaerobic Cult, Routine Cult GS Procedure Result Verified Site Gram stain Final 04/02/21 Gram stain results: 4+ polys 4+ Gram-positive cocci Routine Culture Preliminary 04/04/21 Organism 1 Staphylococcus aureus Quantity 2+ Organism 2 Streptococcus viridans group Quantity 4+ Anaerobic Culture Preliminary 04/04/21 Culture in progress. Collected: 03/30/21 Status: COMP Req#: [id number] Received: 03/30/21 Source: Chest Sp Desc: Subm Dr: Rebecca Rucker NP Ordered: Routine Cult GS Procedure Result Verified Site Gram stain Final 03/30/21 Gram stain results: 4+ polys 1+ epithelial cells 2+ red blood cells 2+ Gram-positive cocci Routine Culture Final 04/03/21 Organism 1 Methicillin Res Staph Aureus Quantity 2+ Result: 4+ Mixed skin jenni MRSA M.I.C. RX --------- --- Clindamycin <=0.25 S Erythromycin >=8 R Oxacillin >=4 R Penicillin-G >=0.5 R Tetracycline <=1 S Trimethoprim/Sulfamethoxazole <=10 S Vancomycin 1 S Collected: 03/31/21 Status: RES Req#: [id number] Received: 03/31/21 Source: Blood Sp Desc: Venous Subm Dr: Andrea Florez MD Ordered: Blood Cult(1st) Procedure Result Verified Site Blood Culture (First) Preliminary 04/02/21 No growth after 48 hours. Discharge Plan Discharge Patient Disposition: Left Against Medical Advice Discharge Diagnosis: mrsa ( subdiaphargmatic abcess ) Referrals: Alberto Cole MD [Primary Care Provider] - 1 Week Discharge Medications: New furosemide [Lasix] 40 mg tablet 40 mg PO BID Qty: 60 0RF linezolid 600 mg Tablet 600 mg PO Q12H Qty: 56 0RF spironolactone 25 mg tablet 25 mg PO BID Qty: 60 0RF No Action No Known Home Meds 0RF Discharge Orders: Discharge Order (Routine); Ordered 04/04/21 Ordered By: Loco To Diet: advance to usual diet Care Plan Goals: Patient has advanced liver disease, came to the hospital due to subdiaphragmatic collection possible abscess and ascites. Patient was started on IV antibiotic and drain was placed in the subdiaphragmatic area which drainage lopez seems slowly improving and blood cultures so far negative subdiaphragmatic collection culture show MRSA , acetic fluid also grew staph aureus- patient decided to leave against medical advise, he is alert oriented discussed with him in detail the risks of leaving against medical advice including sepsis, worsening of subdiaphragmatic collection, ascitis including , he understands and still wants to leave. antibiotic sent to patient pharmacy, patient is aware. In addition patient was advised if any new fever abdominal pain any breathing issues or any new symptoms can come to the nearest emergency room for prompt attention. please check cbc, bmp ,liver function tests weekly with pcp. Health Concerns: as above. Plan of Treatment: as above. Assessment: as above.
--- NOTE | 2021-04-04 16:53 | P.CNGI_ITS ---
History of Present Illness Data of Consult Service Date: 04/04/21 Requesting physician: Loco To Primary Care Provider: Alberto Cole MD [facility] Reason for consult: advanced liver dis /subdiaphragmatic abcess s/p drain PMFSH Past Medical History Medical History (Updated 04/02/21 @ 16:14 by Jannet Zurita MD) Ascites Ascites Cirrhosis Hematoma and contusion Hepatitis C IV drug user Septic pulmonary embolism Family History Family history: reviewed and not pertinent Surgical History Surgical History No pertinent past surgical history Social History Social History Household Members: Other Housing: Homeless Do you presently have visiting nurse or other home services: No Alcohol intake: former Patient Tobacco Use Status: Never used Tobacco Tobacco use type: Cigarette e-Cigarette/Vaping Use: Never Used Substance Use Type: Heroin service: No Meds Allergies Allergy/AdvReac Type Severity Reaction Status Date / Time No Known Allergies Allergy Verified 03/31/21 00:59 [No Known Allergies*] Active Medications: Current Medications Acetaminophen (Acetaminophen 325 Mg Tablet) 650 mg PO Q6H PRN PRN Reason: Pain, Mild (Pain Scale 1-3) Docusate Sodium (Docusate Sodium 100 Mg Capsule) 100 mg PO DAILY PRN PRN Reason: Constipation Linezolid (Linezolid 600 Mg Tablet) 600 mg PO Q12H [facility] Methadone HCl (Methadone Hcl 20 Mg/2 Ml Oral.Conc) 10 mg PO BID [facility] Last Admin: 04/04/21 10:04 Dose: 10 mg Documented by: Morphine Sulfate (Morphine Sulfate 4 Mg/Ml Cartridge) 4 mg IVPUSH Q4H PRN; Protocol PRN Reason: Pain, Severe (Pain Scale 7-10) Last Admin: 04/03/21 18:43 Dose: 4 mg Documented by: Ondansetron HCl (Ondansetron Hcl 4 Mg/2 Ml Vial) 4 mg IVPUSH Q8H PRN PRN Reason: Nausea and Vomiting Sodium Chloride (0.9 % Sodium Chloride Flush 3 Ml Syringe) [facility] Last Admin: 04/04/21 10:05 Dose: 3 ml Documented by: Home Medications Medication Instructions Recorded Confirmed Last Taken Type No Known Home Meds 04/02/21 04/02/21 Unknown History Physical Exam Verdana 4l Vital Signs: Verdana 4d Verdana 4d Vital Signs: Verdana 4d Verdana 4Bd Last Vital Signs Verdana 4d Account Development Associate New 4d Account Development Associate New 4d Temp 98.4 F 04/04/21 11:53 Account Development Associate New 4d Pulse 77 04/04/21 11:53 Account Development Associate New 4d Resp 18 04/04/21 11:53 BP 129/80 04/04/21 11:53 Pulse Ox 98 04/04/21 11:53 BMI result Body Mass Index 19.2 Results Labs CBC & Chem 7: 04/04/21 06:20 04/04/21 06:20 Labs: Short CBC 04/04/21 Range/Units 06:20 WBC 10.4 (4.8-10.8) X10*3/uL Hgb 10.8 L (14.0-18.0) g/dl Hct 33.3 L (42.0-52.0) % Plt Count 189 D (160-400) X10*3/uL BMP 04/04/21 06:20 Sodium 138 Potassium 3.9 Chloride 110 H Carbon Dioxide 23 BUN 7 L Creatinine 0.54 Calcium 7.9 L Microbiology Microbiology Results: Microbiology 04/01/21 16:35 Abscess Intra-abdominal Gram Stain - Final 04/01/21 16:35 Abscess Intra-abdominal Routine Culture - Preliminary Staphylococcus aureus Streptococcus viridans group 04/01/21 16:35 Abscess Intra-abdominal Anaerobic Culture - Preliminary Culture in progress. 04/01/21 16:35 Abdominal Fluid Gram Stain - Final 04/01/21 16:35 Abdominal Fluid Anaerobic Culture - Preliminary No growth to date. 04/01/21 16:35 Abdominal Fluid Body Fluid Culture - Final No growth after 2 days
[2021-04-04] MEDS: Linezolid 600 MG TABLET PO (17:15)
== END 2021-04-04 17:48 | disposition left against medical advice (07) | DRG 280 ==
LOC: HO.ED 04:24 → HO.EDOVER 05:24 → HO.S3 04-02 07:52
PROVIDERS: Internal Medicine; Radiology Diagnostic Radiology; Admitting Provider Internal Medicine; Emergency Provider Student in an Organized Health Care Education/Training Program; PCP Internal Medicine; Visit Provider Internal Medicine
PROC: 0W9G3ZZ Drainage of Peritoneal Cavity, Percutaneous Approach (ICD-10-PCS; principal; 2021-04-01 14:00)
DX: K70.31 Alcoholic cirrhosis of liver with ascites (principal); K65.1 Peritoneal abscess; E88.09 Other disorders of plasma-protein metabolism, not elsewhere classified; B95.62 Methicillin resistant Staphylococcus aureus infection as the cause of diseases classified elsewhere; B19.20 Unspecified viral hepatitis C without hepatic coma; F10.20 Alcohol dependence, uncomplicated; F11.20 Opioid dependence, uncomplicated; Z91.14 Patient's other noncompliance with medication regimen; Z59.02 Unsheltered homelessness; Z79.899 Other long term (current) drug therapy
CPT/HCPCS: 36415; 49083; 75989; 76000; 76705; 80048; 80202; 82042; 82077; 82945; 83605; 83615; 83690; 83735; 84157; 85025; 85027; 87070; 87071; 87073; 87077; 87186; 87205; 89051; 96365; 96375; 99285; C1729; J2270; J2543; J3370; P9047; Q4186; Q9967

== ENCOUNTER 2021-04-21 21:37 | Emergency (ER) | payer OTHER, SELFPAY ==
[2021-04-21 22:02] VITALS: BP 126/72; PULSE 108; RESP 16; TEMP 38.2; O2SAT 98; BMI 19.2
[2021-04-21 22:24] LABS: Basophils Percent Auto 0.3 % (0-2); Eosinophils Absolute Auto 0.2 X10*3/uL (0.0-0.4); Eosinophils Percent Auto 3.3 % (0-4); Hematocrit 31.7 % (42.0-52.0); Imm Gran Abs Auto 0.01 X10*3/uL (0.00-0.03); Imm Gran Pct Auto 0.2 % (0.0-0.4); Lymphocytes Absolute Auto 1.1 X10*3/uL (1.2-4.9); Lymphocytes Percent Auto 17.5 % (20-40); MANUAL DIFF FLAG NO; Mean Corpuscular HGB Conc 31.5 g/dl (31.0-36.0); Mean Corpuscular Hemoglobin 28.6 pg (27.0-33.0); Mean Corpuscular Volume 90.6 fL (80.0-98.0); Mean Platelet Volume 8.7 fL (9.4-12.4); Monocytes Absolute Auto 0.7 X10*3/uL (0.1-1.2); Monocytes Percent Auto 10.9 % (2-11); Neutrophils Absolute Auto 4.4 x10*3/uL (2.0-8.3); Neutrophils Percent Auto 67.8 % (45-73); Platelet Count 193 X10*3/uL (160-400); Red Cell Distribution Width 14.7 % (11.0-16.0); White Blood Count 6.4 X10*3/uL (4.8-10.8)
[2021-04-21 22:42] LABS: Anion Gap 9 (12-20); Blood Urea Nitrogen 10 mg/dL (9-16); Calcium 9.3 mg/dL (8.4-10.2); Carbon Dioxide 31 mmol/L (22-29); Chloride 108 mmol/L (96-108); Estimated Glomerular Filt Rate > 60; Glucose Random 73 mg/dL (60-115); Sodium 144 mmol/L (135-145)
[2021-04-22 00:23] LABS: Alanine Aminotransferase 14 U/L (0-40); Albumin Level 3.4 g/dL (3.5-5.0); Alkaline Phosphatase 54 U/L (39-117); Aspartate Amino Transferase 31 U/L (5-37); Bilirubin Direct 0.3 mg/dL (0.0-0.5); Bilirubin Total 0.5 mg/dL (0.0-1.0); Lipase 62 U/L (8-78); Total Protein 7.5 g/dL (6.5-8.0)
== END 2021-04-22 00:58 | disposition left against medical advice (07) ==
PROVIDERS: Emergency Provider Emergency Medicine; PCP Internal Medicine
DX: R10.9 Unspecified abdominal pain (principal); K74.60 Unspecified cirrhosis of liver; F11.20 Opioid dependence, uncomplicated
CPT/HCPCS: 36415; 80048; 80076; 83690; 85025; 99282; 99283

== ENCOUNTER 2021-04-22 06:54 | Inpatient (IN) | payer OTHER, SELFPAY ==
--- NOTE | ~2021-04-22 | CT_ITS ---
EXAMINATION: CT PELVIS WITHOUT CONTRAST CLINICAL INFORMATION: Pelvic abscess. Preliminary scanning for possible pelvic drainage of abscess. COMPARISON: April 22, 2021 TECHNIQUE: Helical scanning was performed with submillimeter collimation through the pelvis. Sagittal and coronal multiplanar 2-D reconstructions were obtained. This CT examination was performed using dose optimization techniques as appropriate, variously including the following: *Automated exposure control *Adjustment of mA and/or kV according to patient size (this includes techniques or standardized protocols for targeted exams where dose is matched to indication/reason for exam; i.e. extremities or head) *Use of iterative reconstruction technique DLP: 65 mGy-cm FINDINGS: PELVIS: Scanning of the pelvis was performed including after patient urinated to get better access to pelvic abscess which is just superior to the urinary bladder. There is no access to the fluid collection from a transsciatic approach due to its positioning to high within the pelvis. No anterior approach is available either to get to the fluid collection. The collection measures approximately 3.7 x 4.3 x 2.6 cm in size. OSSEOUS STRUCTURES: Unremarkable CT/CT pelvis wo con IMPRESSION: Inability to perform CT fluoroscopic guided drainage of pelvic abscess due to lack of safe path to the collection.
--- NOTE | ~2021-04-22 | CT_ITS ---
EXAMINATION: CT ABDOMEN AND PELVIS WITH CONTRAST CLINICAL INFORMATION: Diffuse abdominal pain. History of peritonitis and left subdiaphragmatic abscess. COMPARISON: Previous CT scans most recent 04/01/2021 TECHNIQUE: Multidetector volumetric images were obtained from the superior aspect of the liver through the pubic symphysis following administration 85 mL of Omnipaque 350 intravenous contrast. Sagittal and coronal reformatted images were obtained on the technologist's workstation. Oral contrast: Yes This CT examination was performed using dose optimization techniques as appropriate, variously including the following: *Automated exposure control *Adjustment of mA and/or kV according to patient size (this includes techniques or standardized protocols for targeted exams where dose is matched to indication/reason for exam; i.e. extremities or head) *Use of iterative reconstruction technique DLP: 405 mGy-cm FINDINGS: LUNG BASES: There are small bilateral pleural effusions and lower lobe atelectasis consolidation, left greater than right. LIVER, GALLBLADDER, AND BILIARY TREE: The liver is slightly enlarged. The liver is cirrhotic appearing. Liver attenuation is slightly heterogeneous and again it is difficult to exclude focal liver lesion. The gallbladder is unremarkable with no evidence of radiopaque gallstones, gallbladder wall thickening, or obvious pericholecystic inflammatory changes. The hepatic veins and portal veins are patent. There are varices. PANCREAS: Unremarkable. SPLEEN: The spleen is enlarged measuring 16 cm in length. ADRENAL GLANDS: Unremarkable. KIDNEYS AND URETERS: The kidneys are normal in size, shape, and attenuation. No hydronephrosis, hydroureter, or calculi seen. No perinephric stranding. BLADDER: Unremarkable. GASTROINTESTINAL TRACT: The small and large bowel are unremarkable. The appendix is unremarkable. There is a small to moderate amount of generalized ascites. There is a slightly thick-walled enhancing fluid collection under the left hemidiaphragm measuring 1.6 x 8 cm in transverse and AP dimension and 5 cm in longitudinal dimension suggestive of a left subdiaphragmatic abscess. This is decreased in size from previous exam. There is a new small thick-walled enhancing fluid collection above the bladder in the central pelvis measuring 4 x 4 by 3 cm in AP transverse and longitudinal dimension axial image 69 series 3 also suggestive of an abscess. ABDOMINAL WALL: No significant hernia is appreciated. LYMPH NODES: Normal. VASCULAR: There are multiple varices. The hepatic and portal veins and splenic vein are patent. PELVIC VISCERA: Unremarkable. OSSEOUS STRUCTURES: There are left lateral lower rib fractures of varying ages. These do not appear appreciably changed. No new fracture is seen. There is some soft tissue swelling of the left lateral chest wall and upper abdominal wall. CT/CT abdomen pelvis w con IMPRESSION: Cirrhotic-appearing liver, splenomegaly and ascites. Left subdiaphragmatic abscess decreased in size from prior exam. New central pelvic abscess superior to the bladder. Left lower lateral rib fractures of varying ages and overlying soft tissue swelling of the left lateral chest wall and upper abdominal wall not appreciably changed. Fleischner guidelines were followed.
--- NOTE | ~2021-04-22 | XR_ITS ---
EXAMINATION: XR CHEST CLINICAL INFORMATION: Covid positive COMPARISON: Previous chest x-ray 01/17/[address] March 2021 TECHNIQUE: Frontal view of the chest was obtained. FINDINGS: The cardiac and mediastinal contours are stable. The lung volumes are low. There is atelectasis or small infiltrates at the lung bases, left greater than right. There is no pleural effusion or pneumothorax. There are soft tissue foreign bodies projecting over the left proximal humerus. Bony structures are otherwise unremarkable. XR/XR chest 1V IMPRESSION: Low lung volumes and atelectasis or small infiltrates at the lung bases.
[2021-04-22 07:05] VITALS: BP 125/69; PULSE 85; RESP 18; TEMP 36.9; O2SAT 98; BMI 19.2
--- NOTE | 2021-04-22 07:20 | ED_ITS ---
HPI - Abdominal Pain General Chief Complaint: Abdominal Pain Stated Complaint: abd pain Time Seen by Provider: 04/22/21 07:14 Source: patient and old records reviewed Mode of arrival: ambulatory Limitations: no limitations History of Present Illness HPI narrative: 35 yo male with end stage liver disease with repeat visits for paracentesis and leaving AMA with known MRSA subdiaphragmatic abscess - S to doxycycline comes in today with c/o I want everything done. I want to get better. I want to stay until all of this is treated. He tells me he thinks his last paracentesis was on 03/31 and that he took all of the antibiotics up til today. MD elicited complaint: abdominal pain Pertinent past history: other (end stage liver disease) Onset (ago): month(s) Pain Consistency: constant Location: diffuse Severity: severe Quality: stabbing Radiation: none Migration to: no migration Exacerbating factors: movement Relieving factors: nothing Context: history of similar episodes Associated symptoms: nausea Treatments prior to arrival: other (states he has been taking his doxycycline) Related Data Previous Rx's Medication Instructions Recorded doxycycline hyclate 100 mg capsule 100 mg PO BID #56 cap 04/04/21 furosemide 40 mg tablet (Lasix) 40 mg PO BID #60 tab 04/04/21 spironolactone 25 mg tablet 25 mg PO BID #60 tab 04/04/21 Allergies Allergy/AdvReac Type Severity Reaction Status Date / Time No Known Allergies Allergy Verified 04/22/21 07:05 [No Known Allergies*] Review of Systems Review of Systems Constitutional : No Weight loss, No Fever, pos Chills ENT/Mouth : No sore throat, No Rhinorrhea Eyes: No Swelling, No Redness Cardiovascular : No Chest Pain, No SOB, NoEdema Respiratory : No Cough, No Sputum, No Wheezing Gastrointestinal : Positive Nausea, no Vomiting, no Diarrhea, positive abdominal Pain, No Hematochezia, No Melena Genitourinary : No Dysuria, No Urinary Frequency, No Hematuria, No Urgency Musculoskeletal : No joint pain, No Myalgias, No Joint Swelling Skin : No Skin Lesions, No rash Neuro : No Weakness, No Numbness, No Dizziness, No Headache Psych : No Anxiety/Panic, No Depression Heme/Lymph: No Bruising, No Lymphadenopathy Endocrine : No Polyuria, No Polydipsia All other systems reviewed and are negative. [facility] Past Medical History Attestation statement: The following information was validated with the patient. Source: old records reviewed Medical History Ascites Ascites Cirrhosis Hematoma and contusion Hepatitis C IV drug user MRSA bacteremia Septic pulmonary embolism Surgical History No pertinent past surgical history Social History Social History Household Members: Other Housing: Homeless Do you presently have visiting nurse or other home services: No Alcohol intake: never Patient Tobacco Use Status: Never used Tobacco Tobacco use type: Cigarette e-Cigarette/Vaping Use: Never Used Use of substances other than those prescribed or required for medical reasons: Yes Substance Use Type: Heroin Advance Directives: No Advance Directives Information Provided: No service: No Physical Exam ED Vital Signs: Vital Signs - 24 hr 04/22/21 07:05 04/22/21 09:41 Temperature 98.5 F 98.6 F Pulse Rate 85 73 Respiratory Rate 18 17 Blood Pressure 125/69 110/63 Pulse Oximetry 98 99 BMI result Body Mass Index 19.2 Appearance: Alert. Oriented X3. No acute distress. Eyes: Pupils equal, round and reactive to light. ENT: Pharynx normal. Neck: Normal inspection. Neck supple. CVS: Normal heart rate and rhythm. Pulses normal. Respiratory: No respiratory distress. Breath sounds normal. Abdomen: Soft and diffuse ttp with ascites noted Skin: Skin warm and dry. pale skin color. Normal skin turgor. Extremities: No lower extremity edema. active track ibrahim noted on UE Neuro: Oriented X 3. No motor deficit. No sensory deficit. Course Course Course Narrative: CT scan shows new area of abscess - at this time infection suspected 1017am - IV zosyn and vancomycin ordered + for COVID vaccine status - ?J+J MDM - Abdominal Pain MDM Narrative Medical decision making narrative: 35 yo male with end stage liver disease with repeat visits for paracentesis and leaving AMA with known MRSA subdiaphragmatic abscess back requesting treatment - he is still using IV heroin. He notes increasing abdominal pain. He states he did take his doxycycline. At this time will obtain labs, blood cultures, CT scan to evaluate his abscess. Paracentesis. Dispo per results and findings. Lab Data Result diagrams: 04/22/21 10:06 04/22/21 10:05 Labs: Lab Results 04/22/21 04/22/21 04/22/21 Range/Units 07:53 10:05 10:06 WBC 4.2 L (4.8-10.8) X10*3/uL RBC 3.54 L (4.60-5.80) X10*6/uL Hgb 10.0 L (14.0-18.0) g/dl Hct 32.5 L (42.0-52.0) % MCV 91.8 (80.0-98.0) fL MCH 28.2 (27.0-33.0) pg MCHC 30.8 L (31.0-36.0) g/dl RDW 14.7 (11.0-16.0) % Plt Count 176 (160-400) X10*3/uL MPV 9.0 L (9.4-12.4) fL Immature Gran % (Auto) 0.5 H (0.0-0.4) % Neut % (Auto) 60.6 (45-73) % Lymph % (Auto) 25.4 (20-40) % [place]att % (Auto) 9.7 (2-11) % Eos % (Auto) 3.6 (0-4) % Baso % (Auto) 0.2 (0-2) % Lymph # (Auto) 1.1 L (1.2-4.9) X10*3/uL [place] # (Auto) 0.4 (0.1-1.2) X10*3/uL Eos # (Auto) 0.2 (0.0-0.4) X10*3/uL Baso # (Auto) 0.0 (0.0-0.2) X10*3/uL Abs Immat Gran (auto) 0.02 (0.00-0.03) X10*3/uL Absolute Neuts (auto) 2.6 (2.0-8.3) x10*3/uL Absolute Nucleated RBC 0.000 (0.0-0.012) X10*3/uL Nucleated RBC % (auto) 0.0 (0.0-0.2) /100WBC PT (9.9-13.0) SEC INR (0.9-1.1) APTT (24.1-38.0) SEC Sodium 142 (135-145) mmol/L Potassium 3.8 (3.3-5.1) mmol/L Chloride 108 (96-108) mmol/L Carbon Dioxide 30 H (22-29) mmol/L Anion Gap 8 L (12-20) BUN 11 (9-16) mg/dL Creatinine 0.63 (0.5-1.4) mg/dL Estim Creat Clear Calc 133.8 Estimated GFR > 60 Random Glucose 92 (60-115) mg/dL Lactic Acid (0.5-2.0) mmol/L Calcium 8.5 D (8.4-10.2) mg/dL Magnesium 1.9 (1.6-2.6) mg/dL Total Bilirubin 0.4 (0.0-1.0) mg/dL Direct Bilirubin 0.3 (0.0-0.5) mg/dL AST 26 (5-37) U/L ALT 14 (0-40) U/L Alkaline Phosphatase 47 (39-117) U/L Total Protein 6.5 (6.5-8.0) g/dL Albumin 2.8 L (3.5-5.0) g/dL Lipase (8-78) U/L COVID-19 (TAMRA) Positive A (Negative) COVID-19 Clin Com See Note 04/22/21 04/22/21 04/22/21 Range/Units 10:06 10:06 10:06 WBC (4.8-10.8) X10*3/uL RBC (4.60-5.80) X10*6/uL Hgb (14.0-18.0) g/dl Hct (42.0-52.0) % MCV (80.0-98.0) fL MCH (27.0-33.0) pg MCHC (31.0-36.0) g/dl RDW (11.0-16.0) % Plt Count (160-400) X10*3/uL MPV (9.4-12.4) fL Immature Gran % (Auto) (0.0-0.4) % Neut % (Auto) (45-73) % Lymph % (Auto) (20-40) % [place]att % (Auto) (2-11) % Eos % (Auto) (0-4) % Baso % (Auto) (0-2) % Lymph # (Auto) (1.2-4.9) X10*3/uL [place] # (Auto) (0.1-1.2) X10*3/uL Eos # (Auto) (0.0-0.4) X10*3/uL Baso # (Auto) (0.0-0.2) X10*3/uL Abs Immat Gran (auto) (0.00-0.03) X10*3/uL Absolute Neuts (auto) (2.0-8.3) x10*3/uL Absolute Nucleated RBC (0.0-0.012) X10*3/uL Nucleated RBC % (auto) (0.0-0.2) /100WBC PT 14.9 H (9.9-13.0) SEC INR 1.3 H (0.9-1.1) APTT 38.5 H (24.1-38.0) SEC Sodium (135-145) mmol/L Potassium (3.3-5.1) mmol/L Chloride (96-108) mmol/L Carbon Dioxide (22-29) mmol/L Anion Gap (12-20) BUN (9-16) mg/dL Creatinine (0.5-1.4) mg/dL Estim Creat Clear Calc Estimated GFR Random Glucose (60-115) mg/dL Lactic Acid 0.9 (0.5-2.0) mmol/L Calcium (8.4-10.2) mg/dL Magnesium (1.6-2.6) mg/dL Total Bilirubin (0.0-1.0) mg/dL Direct Bilirubin (0.0-0.5) mg/dL AST (5-37) U/L ALT (0-40) U/L Alkaline Phosphatase (39-117) U/L Total Protein (6.5-8.0) g/dL Albumin (3.5-5.0) g/dL Lipase 52 (8-78) U/L COVID-19 (TAMRA) (Negative) COVID-19 Clin Com Discharge Plan Discharge Clinical Impression: Abscess of male pelvis, Drug abuse, IV, COVID-19 Cirrhosis Qualifiers: Hepatic cirrhosis type: unspecified hepatic cirrhosis Ascites presence: with ascites Qualified Code(s): K74.60 - Unspecified cirrhosis of liver Patient Disposition: Admitted As Inpatient
[2021-04-22 08:14] LABS: COVID-19 Test Positive (Negative)
[2021-04-22 09:41] VITALS: BP 110/63; PULSE 73; RESP 17; TEMP 37; O2SAT 99
[2021-04-22] MEDS: iohexoL 350 MG/ML 100 ML INFUS..BTL IV (09:41)
[2021-04-22] MEDS: 0.9 % Sodium Chloride 1,000 ML 999 ML IVCONT (09:49)
[2021-04-22] MEDS: oxyCODONE HCl Immed Release 5 MG TABLET 10 MG PO ×2 (09:49→21:48)
[2021-04-22 10:12] LABS: MANUAL DIFF FLAG NO
[2021-04-22 10:16] LABS: Basophils Percent Auto 0.2 % (0-2); Eosinophils Absolute Auto 0.2 X10*3/uL (0.0-0.4); Eosinophils Percent Auto 3.6 % (0-4); Hematocrit 32.5 % (42.0-52.0); Imm Gran Abs Auto 0.02 X10*3/uL (0.00-0.03); Imm Gran Pct Auto 0.5 % (0.0-0.4); Lymphocytes Absolute Auto 1.1 X10*3/uL (1.2-4.9); Lymphocytes Percent Auto 25.4 % (20-40); Mean Corpuscular HGB Conc 30.8 g/dl (31.0-36.0); Mean Corpuscular Hemoglobin 28.2 pg (27.0-33.0); Mean Corpuscular Volume 91.8 fL (80.0-98.0); Monocytes Absolute Auto 0.4 X10*3/uL (0.1-1.2); Monocytes Percent Auto 9.7 % (2-11); Neutrophils Absolute Auto 2.6 x10*3/uL (2.0-8.3); Neutrophils Percent Auto 60.6 % (45-73); Platelet Count 176 X10*3/uL (160-400); Red Blood Count 3.54 X10*6/uL (4.60-5.80); Red Cell Distribution Width 14.7 % (11.0-16.0); White Blood Count 4.2 X10*3/uL (4.8-10.8)
[2021-04-22 10:22] LABS: INTERNATIONAL NORM RATIO 1.3 (0.9-1.1); Prothrombin Time 14.9 SEC (9.9-13.0)
[2021-04-22 10:25] LABS: Partial Thromboplastin Time 38.5 SEC (24.1-38.0)
[2021-04-22 10:38] LABS: Lactic Acid 0.9 mmol/L (0.5-2.0)
[2021-04-22] MEDS: Piperacillin Sodium/Tazobactam 3.375 GM in 0.9 % Sodium Chloride 50 ML IV ×3 (10:44→21:48)
[2021-04-22 10:47] LABS: Lipase 52 U/L (8-78)
[2021-04-22 10:49] LABS: Alanine Aminotransferase 14 U/L (0-40); Albumin Level 2.8 g/dL (3.5-5.0); Alkaline Phosphatase 47 U/L (39-117); Anion Gap 8 (12-20); Aspartate Amino Transferase 26 U/L (5-37); Bilirubin Direct 0.3 mg/dL (0.0-0.5); Bilirubin Total 0.4 mg/dL (0.0-1.0); Blood Urea Nitrogen 11 mg/dL (9-16); Calcium 8.5 mg/dL (8.4-10.2); Carbon Dioxide 30 mmol/L (22-29); Chloride 108 mmol/L (96-108); Creatinine Clr Calc Pharmacy 133.8; Estimated Glomerular Filt Rate > 60; Glucose Random 92 mg/dL (60-115); Magnesium 1.9 mg/dL (1.6-2.6); Potassium 3.8 mmol/L (3.3-5.1); Sodium 142 mmol/L (135-145); Total Protein 6.5 g/dL (6.5-8.0)
--- NOTE | 2021-04-22 11:23 | P.HPHOSP_ITS ---
History of Present Illness Date of Service: 04/22/21 Chief Complaint: abdominal pain This is a 35 yo M with a PMH as outlined below who [place] [facility] [place] with complaints of abdominal pain -- diffuse in nature, 10/10 severity, pressure like, with associated chills of 3 to 4 days duration. The patient has a history of MRSA peritonitis and prior intra-abdominal abscess. He was [place] [facility] to 04/04[place]21 for treatment of his abscess, but decided to sign out against medical advice. He cites personal issues that he had to take care of as the reason for leaving against medical advice. He reports that he has taken the antibiotics (PO doxy) that he was prescribed previously. He reports active IVDU with last use the day prior to admission. Work up in the ED showed a CT abd/pelvis showed: Cirrhotic-appearing liver, splenomegaly and ascites. Left subdiaphragmatic abscess decreased in size from prior exam. New central pelvic abscess superior to the bladder. Left lower lateral rib fractures of varying ages and overlying soft tissue swelling of the left lateral chest wall and upper abdominal wall not appreciably changed. He had blood cultures drawn, was given IV vancomcyin/zosyn, along with analgesics. A CT guided IR drainage of the abscess has been ordered. Incidentally, he was found positive for COVID but denies any respiratory symptoms and remains with normal oxygen saturation. COVID vaccination status: reports Single dose Vaccine, no booster. Review of Systems Review of Systems: negative except HPI [facility] Medical History Ascites Ascites Cirrhosis Hematoma and contusion Hepatitis C IV drug user MRSA bacteremia Septic pulmonary embolism Pertinent family history: CAD and liver disease Surgical History No pertinent past surgical history Social History Household Members: Other Housing: Homeless Do you presently have visiting nurse or other home services: No Alcohol intake: never Patient Tobacco Use Status: Never used Tobacco Tobacco use type: Cigarette e-Cigarette/Vaping Use: Never Used Use of substances other than those prescribed or required for medical reasons: Yes Substance Use Type: Heroin Advance Directives: No Advance Directives Information Provided: No service: No Meds Allergies Allergy/AdvReac Type Severity Reaction Status Date / Time No Known Allergies Allergy Verified 04/22/21 07:05 [No Known Allergies*] Active Medications: Current Medications Acetaminophen (Acetaminophen 325 Mg Tablet) 650 mg PO Q6H PRN PRN Reason: Pain, Mild (Pain Scale 1-3) Vancomycin HCl 1,250 mg/ (Sodium Chloride) 250 mls @ 166.667 mls/hr IV Q12H ALEX Piperacillin Sod/Tazobactam (Sod 3.375 gm/ Sodium Chloride) 50 mls @ 100 mls/hr IV Q6H ALEX Ondansetron HCl (Ondansetron Hcl 4 Mg/2 Ml Vial) 4 mg IVPUSH Q8H PRN PRN Reason: Nausea and Vomiting Pharmacy Consult (Consult Rx Vancomycin Dosing) 1 each MISCELLANE DAILY PRN PRN Reason: Consult order Sodium Chloride (0.9 % Sodium Chloride Flush 3 Ml Syringe) 3 ml IVFLUSH QSHIFT ALEX Physical Exam Vital Signs and Narrative: Vital Signs: Last Vital Signs Temp 98.6 F 04/22/21 09:41 Pulse 73 04/22/21 09:41 Resp 17 04/22/21 09:41 BP 110/63 04/22/21 09:41 Pulse Ox 99 04/22/21 09:41 BMI result Body Mass Index 19.2 Const: Other: Constitutional - Awake and Alert; ill appearing and cachectic apearing Eyes - PERRLA, EOMI Cardiovascular - S1S2, RRR, No edema Respiratory - Normal lung expansion, Normal respiratory effort, No respiratory distress, CTA bilaterally Gastrointestinal - distended with diffuse tenderness without rebound or guarding; +fluid trhill - No CVA tenderness Extremities - no calf tenderness bilaterally, no swelling Musculoskeletal - +muslce wasting Skin - Warm/Dry Neurological - Alert & oriented x3, No focal deficit Psychological - Appropriate affect Results Labs CBC and Chem 7: 04/22/21 10:06 04/22/21 10:05 Labs: Laboratory Results - last 24 hr 04/22/21 04/22/21 04/22/21 07:53 10:05 10:06 MCV 91.8 MCH 28.2 MCHC 30.8 L RDW 14.7 Plt Count 176 MPV 9.0 L Immature Gran % (Auto) 0.5 H Neut % (Auto) 60.6 Lymph % (Auto) 25.4 [place] % (Auto) 9.7 Eos % (Auto) 3.6 Baso % (Auto) 0.2 Lymph # (Auto) 1.1 L [place] # (Auto) 0.4 Eos # (Auto) 0.2 Baso # (Auto) 0.0 Abs Immat Gran (auto) 0.02 Absolute Neuts (auto) 2.6 Absolute Nucleated RBC 0.000 Nucleated RBC % (auto) 0.0 PT INR APTT Anion Gap 8 L Estim Creat Clear Calc 133.8 Estimated GFR > 60 Random Glucose 92 Lactic Acid Calcium 8.5 D Magnesium 1.9 Total Bilirubin 0.4 Direct Bilirubin 0.3 AST 26 ALT 14 Alkaline Phosphatase 47 Total Protein 6.5 Albumin 2.8 L Lipase COVID-19 (TAMRA) Positive A COVID-19 Clin Com See Note 04/22/21 04/22/21 04/22/21 10:06 10:06 10:06 MCV MCH MCHC RDW Plt Count MPV Immature Gran % (Auto) Neut % (Auto) Lymph % (Auto) [place] % (Auto) Eos % (Auto) Baso % (Auto) Lymph # (Auto) [place] # (Auto) Eos # (Auto) Baso # (Auto) Abs Immat Gran (auto) Absolute Neuts (auto) Absolute Nucleated RBC Nucleated RBC % (auto) PT 14.9 H INR 1.3 H APTT 38.5 H Anion Gap Estim Creat Clear Calc Estimated GFR Random Glucose Lactic Acid 0.9 Calcium Magnesium Total Bilirubin Direct Bilirubin AST ALT Alkaline Phosphatase Total Protein Albumin Lipase 52 COVID-19 (TAMRA) COVID-19 Clin Com Imaging Radiologist's Impressions: Impressions Abdomen/Pelvis CT 04/22/21 09:45 IMPRESSION: Cirrhotic-appearing liver, splenomegaly and ascites. Left subdiaphragmatic abscess decreased in size from prior exam. New central pelvic abscess superior to the bladder. Left lower lateral rib fractures of varying ages and overlying soft tissue swelling of the left lateral chest wall and upper abdominal wall not appreciably changed. Fleischner guidelines were followed. Assessment and Plan (1) Intra-abdominal abscess: Status: Acute (2) Cirrhosis: Qualifiers: Ascites presence: with ascites Hepatic cirrhosis type: unspecified hep atic cirrhosis Qualified Code(s): K74.60 - Unspecified cirrhosis of liver; R18.8 - Other ascites Status: Acute Plan This is a 35 yo M with a PMH of IVDU, prior MRSA bacteremia and MRSA peritonitis with multiple intra-abdominal abscesses, cirrhosis, HCV who was most recently admitted [place] [facility] 04[place]04[place]21 for intraabdominal polymicrobial abscess (MRSA + Strep Anginosus) requiring CT guided drainage who left AMA and now returns to the ED with worsening abdominal pain. His CT scan has shown improvement in the previously drained abscess, but a new abscess has formed. He will require further drainage and IV antibiotics. 1. Intra-abdominal abscess likely MRSA; due to non-compliance with recommended care. He has signed out AMA multiple times Cot[place]ue IV vancomcyin + zosyn (until blood cx negative, then likely vancomcyin x 6 weeks) He has been informed that he will continue to have recurrence of his abscesses if not treated adequately; He reports understanding and at this time, is in agreement with the outlined treatment 2. Decompensated cirrhosis with ascites will likely require drainage 3. COVID positive no respiratory symptoms; his CXR findings likely related to atelectasis he is at high risk for severe COVID given his immunocompromised state from cirrhosis 4. Protein calorie malnutrition Suspected moderate to severe -- will await formal nutrition evaluation 5. Active IVDU no withdrawal symptoms currently consult addiction medicine Full Code DVT pptx, Lovenox (after procedure completed) Quality Stroke Does the patient have a stroke diagnosis?: No VTE Prior VTE?: No VTE Risk Level:: Medical - moderate - high VTE Device Contraindication: Treatment Not Indicated VTE Drug Contraindication: N/A - Med Ordered
[2021-04-22] MEDS: vancomycin HCL 750 MG in 0.9 % Sodium Chloride 250 ML 265 MG IV (11:37)
[2021-04-22 11:40] VITALS: PULSE 72; RESP 12; O2SAT 98
[2021-04-22 11:55] LABS: Amphetamine Screen Urine Not Detected (Not Detect); Barbiturates, Urine Not Detected (Not Detect); Benzodiazepines Screen Urine Not Detected (Not Detect); Cannabinoid Screen Urine POSITIVE (Not Detect); Cocaine Screen Urine POSITIVE (Not Detect); Fentanyl, urine POSITIVE (Not Detect); Opiate Screen Urine POSITIVE (Not Detect); Phencyclidine Screen Urine Not Detected (Not Detect)
--- NOTE | 2021-04-22 12:34 | PHA.MEDREC ---
Pharmacy Consult ? Medication Reconciliation Pharmacy has completed the medication reconciliation.
--- NOTE | 2021-04-22 12:41 | PHA.PROG ---
Admission Date/Time: April 22, 2021 11:18 Indication: Weight in k.967 kg Adjusted body weight in K K[place] body weight in K.7 Obesity Dosing Indication % IBW: N\A Serum Creatinine - Last 168 Hours 04/22/21 10:05 Creatinine 0.63 Estimated CrCl and GFR - Last 168 Hours 04/22/21 10:05 Estim Creat Clear Calc 133.8 Estimated GFR > 60 Vancomycin Loading Dose: 750 MG X 1 Current Vancomycin Dosing Regimen: 1250MG Q12H Vancomycin Monitoring using AUC goal of 400 - 600 range with trough as surrogate marker: 500 Date and Time for next Vancomycin Level to be drawn: 04/23/21 @ 2200 Pharmacist Comments on Vancomycin Plan: Vancomycin dosing will take advantage of [employer] as a clinical decision support tool that uses Bayesian modeling to calculate individual patient's pharmacokinetic parameters and forecast the patient's drug concentration time course with the target goal AUC 24 range of 400 - 600 mg/L/hr.
--- NOTE | 2021-04-22 16:23 | HO.ADDICTCON ---
History of Present Illness Date of Service: 04/22/2021 Chief Complaint: abdominal pain Reason for Consult: OUD eval and treatment Requesting physician: Steven Larkin Sources of Information: patient interviewed and chart reviewed HPI Narrative: Patient is a 35 year old male with OUD, currently medically admitted with decompensated liver cirrhosis and ascites, and an intraabdominal abcess. 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 Chart reviewed and patient seen. Patient initially asleep, though easily awaken. Minimal engagement reporting he is very tired and not feeling well. He is unclear if he is experiencing withdrawal symptoms or just feeling terrible from everything else . He did report that he is using very little no more than a bundle a daily. Past Psychiatric History: Not reviewed Review of Systems Constitutional: Reports as per HPI and Reports malaise Diagnostics Vital Signs (24Hr): Vital Signs - 24 hr 04/22/21 07:05 04/22/21 09:41 04/22/21 11:40 Temperature 98.5 F 98.6 F Pulse Rate 85 73 72 Respiratory Rate 18 17 12 Blood Pressure 125/69 110/63 Pulse Oximetry 98 99 98 BMI result Body Mass Index 19.2 Labs Results: 04/22/21 10:06 04/22/21 10:05 Labs: Laboratory Results - last 48 hr 04/22/21 04/22/21 04/22/21 07:53 10:05 10:06 WBC 4.2 L RBC 3.54 L Hgb 10.0 L Hct 32.5 L MCV 91.8 MCH 28.2 MCHC 30.8 L RDW 14.7 Plt Count 176 MPV 9.0 L Immature Gran % (Auto) 0.5 H Neut % (Auto) 60.6 Lymph % (Auto) 25.4 [place] % (Auto) 9.7 Eos % (Auto) 3.6 Baso % (Auto) 0.2 Lymph # (Auto) 1.1 L [place] # (Auto) 0.4 Eos # (Auto) 0.2 Baso # (Auto) 0.0 Abs Immat Gran (auto) 0.02 Absolute Neuts (auto) 2.6 Absolute Nucleated RBC 0.000 Nucleated RBC % (auto) 0.0 PT INR APTT Sodium 142 Potassium 3.8 Chloride 108 Carbon Dioxide 30 H Anion Gap 8 L BUN 11 Creatinine 0.63 Estim Creat Clear Calc 133.8 Estimated GFR > 60 Random Glucose 92 Lactic Acid Calcium 8.5 D Magnesium 1.9 Total Bilirubin 0.4 Direct Bilirubin 0.3 AST 26 ALT 14 Alkaline Phosphatase 47 Total Protein 6.5 Albumin 2.8 L Lipase Urine Opiates Screen Urine Fentanyl Screen Ur Barbiturates Screen Ur Phencyclidine Scrn Ur Amphetamines Screen U Benzodiazepines Scrn Urine Cocaine Screen U Marijuana (THC) Screen COVID-19 (TAMRA) Positive A COVID-19 Clin Com See Note 04/22/21 04/22/21 04/22/21 10:06 10:06 10:06 WBC RBC Hgb Hct MCV MCH MCHC RDW Plt Count MPV Immature Gran % (Auto) Neut % (Auto) Lymph % (Auto) [place] % (Auto) Eos % (Auto) Baso % (Auto) Lymph # (Auto) [place] # (Auto) Eos # (Auto) Baso # (Auto) Abs Immat Gran (auto) Absolute Neuts (auto) Absolute Nucleated RBC Nucleated RBC % (auto) PT 14.9 H INR 1.3 H APTT 38.5 H Sodium Potassium Chloride Carbon Dioxide Anion Gap BUN Creatinine Estim Creat Clear Calc Estimated GFR Random Glucose Lactic Acid 0.9 Calcium Magnesium Total Bilirubin Direct Bilirubin AST ALT Alkaline Phosphatase Total Protein Albumin Lipase 52 Urine Opiates Screen Urine Fentanyl Screen Ur Barbiturates Screen Ur Phencyclidine Scrn Ur Amphetamines Screen U Benzodiazepines Scrn Urine Cocaine Screen U Marijuana (THC) Screen COVID-19 (TAMRA) COVID-19 Clin Com 04/22/21 11:32 WBC RBC Hgb Hct MCV MCH MCHC RDW Plt Count MPV Immature Gran % (Auto) Neut % (Auto) Lymph % (Auto) [place] % (Auto) Eos % (Auto) Baso % (Auto) Lymph # (Auto) [place] # (Auto) Eos # (Auto) Baso # (Auto) Abs Immat Gran (auto) Absolute Neuts (auto) Absolute Nucleated RBC Nucleated RBC % (auto) PT INR APTT Sodium Potassium Chloride Carbon Dioxide Anion Gap BUN Creatinine Estim Creat Clear Calc Estimated GFR Random Glucose Lactic Acid Calcium Magnesium Total Bilirubin Direct Bilirubin AST ALT Alkaline Phosphatase Total Protein Albumin Lipase Urine Opiates Screen POSITIVE H Urine Fentanyl Screen POSITIVE H Ur Barbiturates Screen Not Detected Ur Phencyclidine Scrn Not Detected Ur Amphetamines Screen Not Detected U Benzodiazepines Scrn Not Detected Urine Cocaine Screen POSITIVE H U Marijuana (THC) Screen POSITIVE H COVID-19 (TAMRA) COVID-19 Clin Com Imaging Radiology Impressions: ITS Impressions Abdomen/Pelvis CT 04/22/21 09:45 IMPRESSION: Cirrhotic-appearing liver, splenomegaly and ascites. Left subdiaphragmatic abscess decreased in size from prior exam. New central pelvic abscess superior to the bladder. Left lower lateral rib fractures of varying ages and overlying soft tissue swelling of the left lateral chest wall and upper abdominal wall not appreciably changed. Fleischner guidelines were followed. Chest X-Ray 04/22/21 12:12 IMPRESSION: Low lung volumes and atelectasis or small infiltrates at the lung bases. Mental Status Exam Mental Status Exam Patient Appearance: Appropriate (hospital attire ) Level of Consciousness: Drowsy Medications Medications Current Medications Acetaminophen (Acetaminophen 325 Mg Tablet) 650 mg PO Q6H PRN PRN Reason: Pain, Mild (Pain Scale 1-3) Vancomycin HCl 1,250 mg/ (Sodium Chloride) 250 mls @ 166.667 mls/hr IV Q12H [facility] Piperacillin Sod/Tazobactam (Sod 3.375 gm/ Sodium Chloride) 50 mls @ 100 mls/hr IV Q6H [facility] Last Admin: 04/22/21 16:02 Dose: 100 mls/hr Documented by: Ondansetron HCl (Ondansetron Hcl 4 Mg/2 Ml Vial) 4 mg IVPUSH Q8H PRN PRN Reason: Nausea and Vomiting Oxycodone HCl (Oxycodone Hcl Immed Release 5 Mg Tablet) 10 mg PO Q6H PRN PRN Reason: Pain, Severe (Pain Scale 7-10) Pharmacy Consult (Consult Rx Vancomycin Dosing) 1 each MISCELLANE DAILY PRN PRN Reason: Consult order Sodium Chloride (0.9 % Sodium Chloride Flush 3 Ml Syringe) 3 ml IVFLUSH QSHIFT [facility] Allergies Allergies Allergy/AdvReac Type Severity Reaction Status Date / Time No Known Allergies Allergy Verified 04/22/21 07:05 [No Known Allergies*] Assessment & Plan Assessment & Plan (1) Opioid use disorder: Status: Acute Code(s): F11.90 - Opioid use, unspecified, uncomplicated Assessment and Plan: monitor COWS methadone 10mg q 4hrs PRN for opioid withdrawal. Max of 3 doses. Do not dose if patient is sedated. will follow up in AM I spent ___30___ minutes with the patient and/or on the patient floor today, greater than?50% of which was spent counseling/coordinating care. PMFSH Past Medical History Medical History Ascites Ascites Cirrhosis Hematoma and contusion Hepatitis C IV drug user MRSA bacteremia Septic pulmonary embolism Surgical History Surgical History No pertinent past surgical history Social History Social History Household Members: Other Housing: Homeless Do you presently have visiting nurse or other home services: No Alcohol intake: never Patient Tobacco Use Status: Never used Tobacco Tobacco use type: Cigarette e-Cigarette/Vaping Use: Never Used Use of substances other than those prescribed or required for medical reasons: Yes Substance Use Type: Heroin Advance Directives: No Advance Directives Information Provided: No service: No
[2021-04-22 19:56] VITALS: BP 120/69; PULSE 79; RESP 16; TEMP 36.6; O2SAT 98
[2021-04-22 23:32] VITALS: BP 122/72; PULSE 74; RESP 17; TEMP 37.1; O2SAT 98
[2021-04-23] VITALS: PULSE 68; RESP 18; O2SAT 97
[2021-04-23] MEDS: vancomycin HCL 1,250 MG in 0.9 % Sodium Chloride 250 ML 166.67 MG IV ×2 (01:32→13:27)
[2021-04-23] MEDS: 0.9 % Sodium Chloride Flush 3 ML SYRINGE IVFLUSH (01:32)
[2021-04-23] MEDS: methADONE HCl 20 MG/2 ML ORAL.CONC 10 MG PO ×2 (01:38→16:41)
[2021-04-23 04:00] VITALS: BP 120/66; PULSE 66; RESP 18; O2SAT 97
[2021-04-23] MEDS: Piperacillin Sodium/Tazobactam 3.375 GM in 0.9 % Sodium Chloride 50 ML IV ×4 (04:51→22:10)
[2021-04-23 06:33] LABS: Hemoglobin 10.1 g/dl (14.0-18.0); Mean Corpuscular HGB Conc 31.6 g/dl (31.0-36.0); Mean Corpuscular Hemoglobin 28.2 pg (27.0-33.0); Mean Corpuscular Volume 89.4 fL (80.0-98.0); Platelet Count 169 X10*3/uL (160-400); Red Blood Count 3.58 X10*6/uL (4.60-5.80); Red Cell Distribution Width 14.5 % (11.0-16.0); White Blood Count 6.7 X10*3/uL (4.8-10.8)
[2021-04-23 06:59] LABS: Anion Gap 9 (12-20); Blood Urea Nitrogen 7 mg/dL (9-16); Calcium 8.2 mg/dL (8.4-10.2); Carbon Dioxide 25 mmol/L (22-29); Chloride 108 mmol/L (96-108); Creatinine Clr Calc Pharmacy 150.6; Estimated Glomerular Filt Rate > 60; Glucose Random 96 mg/dL (60-115); Potassium 3.8 mmol/L (3.3-5.1); Sodium 138 mmol/L (135-145)
[2021-04-23 08:25] VITALS: BP 115/66; PULSE 63; RESP 18; O2SAT 96
--- NOTE | 2021-04-23 09:21 | PC.NURSE ---
Pt received from material handler 1st shift: Pt AOX4 and offers mild complaint to generalized abd. Heart sounds normal and lungs clear. Pt abd round, soft and generazlied tender. Pending thoracenthesis estimated around 1000 this morning. Radiology aware.
--- NOTE | 2021-04-23 10:33 | PC.NURSE ---
Pt to IR at this time with ALICIA Okeefe
--- NOTE | 2021-04-23 11:14 | P.PNIM_ITS ---
Subjective Subjective Date of Service: 04/23/21 Interval History: seen and examined reports abdominal pain and anxiety; reports opiate withdrawal symptoms denies nausea or vomiting Review of Systems negative except interval history Physical Exam Vital Signs: Vital Signs: Last Vital Signs Temp 98.7 F 04/22/21 23:32 Pulse 63 04/23/21 08:25 Resp 18 04/23/21 08:25 BP 115/66 04/23/21 08:25 Pulse Ox 96 04/23/21 08:25 BMI result Body Mass Index 19.2 Const: Other: General - ill appearing Cardiovascular - regular rate and rhythm, S1-S2 Lungs - distended with diffuse tenderness; no rebdound or guarding; + fluid trhill Abdomen - soft, nontender, no rebound or guarding Extremities - no edema bilaterally Neuro - awake and alert, no focal deficits Objective Data Active Medications Acetaminophen (Acetaminophen 325 Mg Tablet) 650 mg PO Q6H PRN PRN Reason: Pain, Mild (Pain Scale 1-3) Vancomycin HCl 1,250 mg/ (Sodium Chloride) 250 mls @ 166.667 mls/hr IV Q12H [facility] Last Infusion: 04/23/21 03:12 Dose: 0 mls/hr Documented by: KHAI Piperacillin Sod/Tazobactam (Sod 3.375 gm/ Sodium Chloride) 50 mls @ 100 mls/hr IV Q6H [facility] Last Infusion: 04/23/21 10:06 Dose: 0 mls/hr Documented by: GIANNA Methadone HCl (Methadone Hcl 20 Mg/2 Ml Oral.Conc) 10 mg PO Q4H PRN PRN Reason: Opiate Withdrawal Last Admin: 04/23/21 01:38 Dose: 10 mg Documented by: KHAI Ondansetron HCl (Ondansetron Hcl 4 Mg/2 Ml Vial) 4 mg IVPUSH Q8H PRN PRN Reason: Nausea and Vomiting Oxycodone HCl (Oxycodone Hcl Immed Release 5 Mg Tablet) 10 mg PO Q6H PRN PRN Reason: Pain, Severe (Pain Scale 7-10) Last Admin: 04/22/21 21:48 Dose: 10 mg Documented by: SHANNAN Pharmacy Consult (Consult Rx Vancomycin Dosing) 1 each MISCELLANE DAILY PRN PRN Reason: Consult order Sodium Chloride (0.9 % Sodium Chloride Flush 3 Ml Syringe) 3 ml IVFLUSH QSHIFT [facility] Last Admin: 04/23/21 07:18 Dose: Not Given Documented by: GIANNA Non-Admin Reason: Med Not Available Labs CBC & Chem 7: 04/23/21 05:56 04/23/21 05:56 Labs: Laboratory Results - last 24 hr 04/22/21 04/23/21 04/23/21 11:32 05:56 05:56 MCV 89.4 MCH 28.2 MCHC 31.6 RDW 14.5 Plt Count 169 MPV 9.0 L Absolute Nucleated RBC 0.000 Nucleated RBC % (auto) 0.0 Anion Gap 9 L Estim Creat Clear Calc 150.6 Estimated GFR > 60 Random Glucose 96 Calcium 8.2 L Urine Opiates Screen POSITIVE H Urine Fentanyl Screen POSITIVE H Ur Barbiturates Screen Not Detected Ur Phencyclidine Scrn Not Detected Ur Amphetamines Screen Not Detected U Benzodiazepines Scrn Not Detected Urine Cocaine Screen POSITIVE H U Marijuana (THC) Screen POSITIVE H Assessment and Plan (1) Abscess of male pelvis: Status: Acute (2) Cirrhosis: Status: Acute (3) Drug abuse, IV: Status: Acute Plan This is a 35 yo M with a PMH of IVDU, prior MRSA bacteremia and MRSA peritonitis with multiple intra-abdominal abscesses, cirrhosis, HCV who was most recently admitted to [facility] from 04/01/21 to 04/04/21 for intraabdominal polymicrobial abscess (MRSA + Strep Anginosus) requiring CT guided drainage who left AMA and now returns to the ED with worsening abdominal pain. His CT scan has shown impr ovement in the previously drained abscess, but a new abscess has formed. He will require further drainage and IV antibiotics. 1. Intra-abdominal abscess likely MRSA and due to non-compliance with recommended care. He has signed out AMA multiple times IR drainage planned for today Continue IV vancomcyin + zosyn (until blood cx negative, then likely vancomcyin x 6 weeks) He has been informed that he will continue to have recurrence of his abscesses if not treated adequately; He reports understanding and at this time, is in agreement with the outlined treatment ? 2. Decompensated cirrhosis with ascites will likely require drainage vs resumption of diuretics 3. COVID positive no respiratory symptoms; his CXR findings likely related to atelectasis he is at high risk for severe COVID given his immunocompromised state from cirrhosis monitor 4. Protein calorie malnutrition Suspected moderate to severe -- will await formal nutrition evaluation 5. Active IVDU addiction consult appreciated -- on Methadone for now; Full Code DVT pptx, Lovenox (after procedure completed) Quality Stroke Does the patient have a stroke diagnosis?: No VTE Prior VTE?: No VTE Risk Level:: Medical - moderate - high VTE Device Contraindication: Treatment Not Indicated VTE Drug Contraindication: N/A - Med Ordered
--- NOTE | 2021-04-23 12:11 | PC.NURSE ---
Call received from IR who stated they were not able to access the abscess and were unable to complete the drainage.
--- NOTE | 2021-04-23 14:46 | MHC.CM.PN ---
Attempted to meet with patient in regards to discharge planning. Nursing care currently being provided. Patient is well known to case management from previous admission. Patient is homeless. Copy of HCP is verified to be on file. Patient received J&J vaccine on 08/28. Positive for Covid on 04/22. Patient frequently leaves the hospital AMA. Case management assessment completed uses medical record. Continue to monitor for d/c needs.
[2021-04-23 15:07] VITALS: BP 99/58; PULSE 60; RESP 20; TEMP 36.9; O2SAT 99
[2021-04-23] MEDS: oxyCODONE HCl Immed Release 5 MG TABLET 10 MG PO (16:30)
--- NOTE | 2021-04-23 17:03 | HO.ADDICTPRO ---
Subjective Subjective Date of Service: 04/23/21 Reason For Visit: abdominal pain Interim History: Patient seenin followup. Awake, not very engaged. Reporting he is hungry Has received 2 of three methadone doses ordered first one at 0100 and second dose 1640. Nursing reporting that patient had been sleeping most of the day When seen by this telegraphic typewriter repairer he denied withdrawal sx, but reporting feeling lousy flat affect Review of Systems Acute medical concerns: Yes Medical Review of Systems: unchanged Mental Status Exam Mental Status Exam Patient Appearance: Appropriate Patient Behavior: Poor Eye Contact Mood Description: Flat Affect Description: Flat Diagnostics Vital Signs (24Hr): Vital Signs - 24 hr 04/22/21 19:56 04/22/21 23:32 04/23/21 00:00 Temperature 98 F 98.7 F Pulse Rate 79 74 68 Respiratory Rate 16 17 18 Blood Pressure 120/69 122/72 Pulse Oximetry 98 98 97 04/23/21 04:00 04/23/21 08:25 04/23/21 15:07 Temperature 98.4 F Pulse Rate 66 63 60 Respiratory Rate 18 18 20 Blood Pressure 120/66 115/66 99/58 L Pulse Oximetry 97 96 99 BMI result Body Mass Index 19.2 Labs Results: 04/23/21 05:56 04/23/21 05:56 Labs: Laboratory Results - last 48 hr 04/22/21 04/22/21 04/22/21 07:53 10:05 10:06 WBC 4.2 L RBC 3.54 L Hgb 10.0 L Hct 32.5 L MCV 91.8 MCH 28.2 MCHC 30.8 L RDW 14.7 Plt Count 176 MPV 9.0 L Immature Gran % (Auto) 0.5 H Neut % (Auto) 60.6 Lymph % (Auto) 25.4 Blair % (Auto) 9.7 Eos % (Auto) 3.6 Baso % (Auto) 0.2 Lymph # (Auto) 1.1 L Blair # (Auto) 0.4 Eos # (Auto) 0.2 Baso # (Auto) 0.0 Abs Immat Gran (auto) 0.02 Absolute Neuts (auto) 2.6 Absolute Nucleated RBC 0.000 Nucleated RBC % (auto) 0.0 PT INR APTT Sodium 142 Potassium 3.8 Chloride 108 Carbon Dioxide 30 H Anion Gap 8 L BUN 11 Creatinine 0.63 Estim Creat Clear Calc 133.8 Estimated GFR > 60 Random Glucose 92 Lactic Acid Calcium 8.5 D Magnesium 1.9 Total Bilirubin 0.4 Direct Bilirubin 0.3 AST 26 ALT 14 Alkaline Phosphatase 47 Total Protein 6.5 Albumin 2.8 L Lipase Urine Opiates Screen Urine Fentanyl Screen Ur Barbiturates Screen Ur Phencyclidine Scrn Ur Amphetamines Screen U Benzodiazepines Scrn Urine Cocaine Screen U Marijuana (THC) Screen COVID-19 (TAMRA) Positive A COVID-19 Clin Com See Note 04/22/21 04/22/21 04/22/21 10:06 10:06 10:06 WBC RBC Hgb Hct MCV MCH MCHC RDW Plt Count MPV Immature Gran % (Auto) Neut % (Auto) Lymph % (Auto) Blair % (Auto) Eos % (Auto) Baso % (Auto) Lymph # (Auto) Blair # (Auto) Eos # (Auto) Baso # (Auto) Abs Immat Gran (auto) Absolute Neuts (auto) Absolute Nucleated RBC Nucleated RBC % (auto) PT 14.9 H INR 1.3 H APTT 38.5 H Sodium Potassium Chloride Carbon Dioxide Anion Gap BUN Creatinine Estim Creat Clear Calc Estimated GFR Random Glucose Lactic Acid 0.9 Calcium Magnesium Total Bilirubin Direct Bilirubin AST ALT Alkaline Phosphatase Total Protein Albumin Lipase 52 Urine Opiates Screen Urine Fentanyl Screen Ur Barbiturates Screen Ur Phencyclidine Scrn Ur Amphetamines Screen U Benzodiazepines Scrn Urine Cocaine Screen U Marijuana (THC) Screen COVID-19 (TAMRA) COVID-19 Clin Com 04/22/21 04/23/21 04/23/21 11:32 05:56 05:56 WBC 6.7 RBC 3.58 L Hgb 10.1 L Hct 32.0 L MCV 89.4 MCH 28.2 MCHC 31.6 RDW 14.5 Plt Count 169 MPV 9.0 L Immature Gran % (Auto) Neut % (Auto) Lymph % (Auto) Blair % (Auto) Eos % (Auto) Baso % (Auto) Lymph # (Auto) Blair # (Auto) Eos # (Auto) Baso # (Auto) Abs Immat Gran (auto) Absolute Neuts (auto) Absolute Nucleated RBC 0.000 Nucleated RBC % (auto) 0.0 PT INR APTT Sodium 138 Potassium 3.8 Chloride 108 Carbon Dioxide 25 Anion Gap 9 L BUN 7 L Creatinine 0.56 Estim Creat Clear Calc 150.6 Estimated GFR > 60 Random Glucose 96 Lactic Acid Calcium 8.2 L Magnesium Total Bilirubin Direct Bilirubin AST ALT Alkaline Phosphatase Total Protein Albumin Lipase Urine Opiates Screen POSITIVE H Urine Fentanyl Screen POSITIVE H Ur Barbiturates Screen Not Detected Ur Phencyclidine Scrn Not Detected Ur Amphetamines Screen Not Detected U Benzodiazepines Scrn Not Detected Urine Cocaine Screen POSITIVE H U Marijuana (THC) Screen POSITIVE H COVID-19 (TAMRA) COVID-19 Clin Com Imaging Radiology Impressions: ITS Impressions Abdomen/Pelvis CT 04/22/21 09:45 IMPRESSION: Cirrhotic-appearing liver, splenomegaly and ascites. Left subdiaphragmatic abscess decreased in size from prior exam. New central pelvic abscess superior to the bladder. Left lower lateral rib fractures of varying ages and overlying soft tissue swelling of the left lateral chest wall and upper abdominal wall not appreciably changed. Fleischner guidelines were followed. Chest X-Ray 04/22/21 12:12 IMPRESSION: Low lung volumes and atelectasis or small infiltrates at the lung bases. Pelvis CT 04/23/21 12:15 IMPRESSION: Inability to perform CT fluoroscopic guided drainage of pelvic abscess due to lack of safe path to the collection. Medications Medications Current Medications Acetaminophen (Acetaminophen 325 Mg Tablet) 650 mg PO Q6H PRN PRN Reason: Pain, Mild (Pain Scale 1-3) Vancomycin HCl 1,250 mg/ (Sodium Chloride) 250 mls @ 166.667 mls/hr IV Q12H [facility] Last Infusion: 04/23/21 14:59 Dose: Infused Documented by: Piperacillin Sod/Tazobactam (Sod 3.375 gm/ Sodium Chloride) 50 mls @ 100 mls/hr IV Q6H [facility] Last Admin: 04/23/21 16:30 Dose: 100 mls/hr Documented by: Methadone HCl (Methadone Hcl 20 Mg/2 Ml Oral.Conc) 10 mg PO Q4H PRN PRN Reason: Opiate Withdrawal Last Admin: 04/23/21 16:41 Dose: 10 mg Documented by: Ondansetron HCl (Ondansetron Hcl 4 Mg/2 Ml Vial) 4 mg IVPUSH Q8H PRN PRN Reason: Nausea and Vomiting Oxycodone HCl (Oxycodone Hcl Immed Release 5 Mg Tablet) 10 mg PO Q6H PRN PRN Reason: Pain, Severe (Pain Scale 7-10) Last Admin: 04/23/21 16:30 Dose: 10 mg Documented by: Pharmacy Consult (Consult Rx Vancomycin Dosing) 1 each MISCELLANE DAILY PRN PRN Reason: Consult order Sodium Chloride (0.9 % Sodium Chloride Flush 3 Ml Syringe) 3 ml IVFLUSH QSHIFT [facility] Last Admin: 04/23/21 13:18 Dose: Not Given Documented by: Allergies Allergies Allergy/AdvReac Type Severity Reaction Status Date / Time No Known Allergies Allergy Verified 04/22/21 07:05 [No Known Allergies*] Assessment & Plan Assessment & Plan (1) Opioid use disorder: Status: Acute Code(s): F11.90 - Opioid use, unspecified, uncomplicated Assessment and Plan: still has one more dose of methadone will follow up tomorrow and determine additional dosing I spent __15____ minutes with the patient and/or on the patient floor today, greater than?50% of which was spent counseling/coordinating care.
[2021-04-23 19:14] VITALS: BP 118/62; PULSE 80; RESP 20; TEMP 36.8; O2SAT 97
--- NOTE | 2021-04-23 22:33 | PHA.PROG ---
Admission Date/Time: April 22, 2021 11:18 Indication: Intra-abdominal Abcess Weight in k.967 kg Adjusted body weight in K K[place] body weight in K.7 Obesity Dosing Indication % IBW: N\A Serum Creatinine - Last 168 Hours 04/22/21 04/23/21 10:05 05:56 Creatinine 0.63 0.56 Estimated CrCl and GFR - Last 168 Hours 04/22/21 04/23/21 10:05 05:56 Estim Creat Clear Calc 133.8 150.6 Estimated GFR > 60 > 60 Vancomycin Loading Dose: N/A Current Vancomycin Dosing Regimen: 1250 mg Q12H Vancomycin Trough 12.0 mcg/mL (10.0-20.0) 04/23/21 21:52 Pharmacist Comments on Vancomycin Plan: Continue current regimen. Expected AUC 447 with a trough of 11.3 Next trough: 2\18 @ 1000 Pharmacy to monitor renal function daily Adalgisa Arguello, Zheng Vancomycin dosing will take advantage of [employer] as a clinical decision support tool that uses Bayesian modeling to calculate individual patient's pharmacokinetic parameters and forecast the patient's drug concentration time course with the target goal AUC 24 range of 400 - 600 mg/L/hr.
[2021-04-23 23:32] VITALS: BP 134/81; PULSE 73; RESP 18; TEMP 36.9; O2SAT 97
[2021-04-24] MEDS: vancomycin HCL 1,250 MG in 0.9 % Sodium Chloride 250 ML 166.67 MG IV ×3 (00:18→23:23)
[2021-04-24] MEDS: 0.9 % Sodium Chloride Flush 3 ML SYRINGE IVFLUSH ×4 (00:19→20:51)
[2021-04-24 04:00] VITALS: BP 123/70; PULSE 60; RESP 16; TEMP 36.9; O2SAT 96
[2021-04-24] MEDS: Piperacillin Sodium/Tazobactam 3.375 GM in 0.9 % Sodium Chloride 50 ML IV ×4 (04:06→20:50)
[2021-04-24 07:06] LABS: Creatinine Clr Calc Pharmacy 140.5; Estimated Glomerular Filt Rate > 60
[2021-04-24 07:50] VITALS: BP 129/86; PULSE 78; RESP 20; TEMP 35.9; O2SAT 97
[2021-04-24 11:38] VITALS: BP 122/82; PULSE 62; RESP 20; TEMP 36.8; O2SAT 97
[2021-04-24] MEDS: oxyCODONE HCl Immed Release 5 MG TABLET 10 MG PO ×2 (11:52→19:05)
[2021-04-24] MEDS: methADONE HCl 20 MG/2 ML ORAL.CONC 10 MG PO (11:52)
--- NOTE | 2021-04-24 12:38 | PM.CNGS ---
History of Present Illness Consult details Consult date: 04/24/21 Requesting physician: Lucia Moses Narrative: 35-year-old male patient with history of alcohol abuse, cirrhosis, and known history of left chest trauma resulting in a rib fracture enlarge contain hematoma subsequently developing abscess in the abdomen in the left upper quadrant which required IR drainage. Patient now reports abdominal pain in the lower abdomen with urinary incontinence. He was found to have an abscess in the pelvis above the bladder. He was evaluated by Interventional Radiology but no clear path to drainage could be identified. Surgical consultation is requested for drainage of this abdominal abscess. Review of Systems Review of Systems: Yes all other systems are reviewed and are negative Constitutional: Constitutional: Reports body ache(s), Denies fever(s) and Reports poor appetite Cardiovascular: Cardiovascular: Reports chest pain and Denies palpitations Respiratory: Respiratory: Reports pain on inspiration and Reports pain with cough Gastrointestinal: Gastrointestinal: Reports abdominal pain and Reports bloating Genitourinary: Genitourinary: Reports urinary frequency and Reports urinary incontinence Musculoskeletal: Musculoskeletal: Reports as per HPI Integumentary/Breasts: Skin/Breast: Reports as per HPI Endocrine: Endocrine: Denies palpitations PMFSH Past Medical History Medical History Ascites Ascites Cirrhosis Hematoma and contusion Hepatitis C IV drug user MRSA bacteremia Septic pulmonary embolism Surgical History Surgical History No pertinent past surgical history Social History Social History Household Members: Other Housing: Homeless Do you presently have visiting nurse or other home services: No Alcohol intake: never Patient Tobacco Use Status: Never used Tobacco Tobacco use type: Cigarette e-Cigarette/Vaping Use: Never Used Substance Use Type: Heroin service: No Current occupational status: unemployed Meds Allergies Allergy/AdvReac Type Severity Reaction Status Date / Time No Known Allergies Allergy Verified 04/22/21 07:05 [No Known Allergies*] Active Medications: Current Medications Acetaminophen (Acetaminophen 325 Mg Tablet) 650 mg PO Q6H PRN PRN Reason: Pain, Mild (Pain Scale 1-3) Vancomycin HCl 1,250 mg/ (Sodium Chloride) 250 mls @ 166.667 mls/hr IV Q12H [facility] Last Admin: 04/24/21 11:50 Dose: 166.67 mls/hr Documented by: Piperacillin Sod/Tazobactam (Sod 3.375 gm/ Sodium Chloride) 50 mls @ 100 mls/hr IV Q6H [facility] Last Infusion: 04/24/21 11:35 Dose: Infused Documented by: Ondansetron HCl (Ondansetron Hcl 4 Mg/2 Ml Vial) 4 mg IVPUSH Q8H PRN PRN Reason: Nausea and Vomiting Oxycodone HCl (Oxycodone Hcl Immed Release 5 Mg Tablet) 10 mg PO Q6H PRN PRN Reason: Pain, Severe (Pain Scale 7-10) Last Admin: 04/24/21 11:52 Dose: 10 mg Documented by: Pharmacy Consult (Consult Rx Vancomycin Dosing) 1 each MISCELLANE DAILY PRN PRN Reason: Consult order Sodium Chloride (0.9 % Sodium Chloride Flush 3 Ml Syringe) 3 ml IVFLUSH QSHIFT [facility] Last Admin: 04/24/21 09:57 Dose: 3 ml Documented by: Physical Exam Vital Signs: Vital Signs: Last Vital Signs Temp 98.3 F 04/24/21 11:38 Pulse 62 04/24/21 11:38 Resp 20 04/24/21 11:38 BP 122/82 04/24/21 11:38 Pulse Ox 97 04/24/21 11:38 BMI result Body Mass Index 19.2 Const: General: ill appearing Nutritional Appearance: thin Orientation/consciousness: patient oriented x3 Limitations: no limitations Eyes: EOM: EOMs intact bilaterally Resp: Effort & Inspection: normal respiratory effort, no audible wheezes, no cough and no respiratory distress Cardio: Jugular venous distension: no JVD GI: Inspection: Yes distended Palpation (GI): Firmness to palpation present (GI), Tenderness to palpation present (GI), no guarding, not rigid and Hepatomegaly present Percussion: Yes Fluid wave present Auscultation: normal bowel sounds Rectal Exam - Male: Yes deferred Skin: General skin exam: dry skin, no ecchymosis, no erythema and no petechiae Neuro: General: patient oriented x3 Results Labs Result diagrams: 04/23/21 05:56 04/24/21 06:26 Labs: BMP 04/24/21 06:26 Creatinine 0.60 All other labs normal. Assessment and Plan (1) Abscess of male pelvis: Status: Acute (2) Cirrhosis: Qualifiers: Ascites presence: with ascites Hepatic cirrhosis type: unspecified hepatic cirrhosis Qualified Code(s): K74.60 - Unspecified cirrhosis of liver; R18.8 - Other ascites Status: Acute (3) COVID-19: Status: Acute Plan 35-year-old male patient presenting with abdominal abscess located in the pelvis found on CT abdomen and pelvis. Patient is reporting abdominal pain especially in lower abdomen as well as urinary symptoms. Review of CT of the abdomen does reveal a large thick-walled abscess in the pelvis. We discussed exploratory laparotomy with drainage of the abscess. After review of the procedure, risks, and alternatives, he consents to the exploratory laparotomy with drainage of abdominal abscess. He has been added onto the operative schedule for tomorrow. Procedures Date of Service Date of Service: 04/24/21
[2021-04-24 12:50] VITALS: BMI 19.2
--- NOTE | 2021-04-24 12:55 | MHC.CLN ---
RE: CONSULT PT IS MODERATELY MALNOURISHED PT HAS MILD SUBCUTANEOUS FAT DEPLETION IN TRICEPS, SEVERE MUSCLE WASTING OF TEMPLES, AND IS 81% OF IBW AND CHRONIC POOR PO INTAKE R/T IVDU DIET RX: REGULAR -APPROPRIATE PT STATED HE HAS A DECREASED APPETITE DUE TO ABDOMINAL PAIN RECOMMEND ADDING ENSURE SUPPLEMENT TID TO PROVIDE 1050 KCALS, 60 GRAMS PROTEIN MONITOR PO INTAKE AND SUPPLEMENT ACCEPTANCE SEE ALSO FULL CLINICAL NUTRITION ASSESSMENT
--- NOTE | 2021-04-24 14:03 | HO.PM.IMPN ---
Subjective Subjective Date of Service: 04/24/21 Interval History: seen and examined this morning follow up for intraabdominal abscess, not amenable to IR guided drainage denies any abdominal pain at this time Review of Systems Review of Systems: Yes all other systems are reviewed and are negative Constitutional Constitutional: Denies chills and Denies fever(s) Cardiovascular Cardiovascular: Denies dyspnea Respiratory Respiratory: Denies dyspnea Gastrointestinal Gastrointestinal: Denies vomiting Physical Exam Vital Signs: Vital Signs: Last Vital Signs Temp 98.3 F 04/24/21 11:38 Pulse 62 04/24/21 11:38 Resp 20 04/24/21 11:38 BP 122/82 04/24/21 11:38 Pulse Ox 97 04/24/21 11:38 BMI result Body Mass Index 19.2 Const: Other: chronically ill appearing General: cooperative, comfortable, no acute distress, alert and awake Nutritional Appearance: thin Resp: Effort & Inspection: normal respiratory effort and able to speak in complete sentences Cardio: Rate: regular rate Heart sounds: S1 normal heart sound present and S2 normal heart sound present GI: Other: softly distended, non-tender Percussion: Yes Fluid wave present Extrem: Other: no leg edema Objective Data Active Medications Acetaminophen (Acetaminophen 325 Mg Tablet) 650 mg PO Q6H PRN PRN Reason: Pain, Mild (Pain Scale 1-3) Vancomycin HCl 1,250 mg/ (Sodium Chloride) 250 mls @ 166.667 mls/hr IV Q12H [facility] Last Infusion: 04/24/21 13:25 Dose: 0 mls/hr Documented by: GLORIA Piperacillin Sod/Tazobactam (Sod 3.375 gm/ Sodium Chloride) 50 mls @ 100 mls/hr IV Q6H [facility] Last Infusion: 04/24/21 11:35 Dose: 0 mls/hr Documented by: GLORIA Ondansetron HCl (Ondansetron Hcl 4 Mg/2 Ml Vial) 4 mg IVPUSH Q8H PRN PRN Reason: Nausea and Vomiting Oxycodone HCl (Oxycodone Hcl Immed Release 5 Mg Tablet) 10 mg PO Q6H PRN PRN Reason: Pain, Severe (Pain Scale 7-10) Last Admin: 04/24/21 11:52 Dose: 10 mg Documented by: GLORIA Pharmacy Consult (Consult Rx Vancomycin Dosing) 1 each MISCELLANE DAILY PRN PRN Reason: Consult order Sodium Chloride (0.9 % Sodium Chloride Flush 3 Ml Syringe) 3 ml IVFLUSH QSHIFT [facility] Last Admin: 04/24/21 09:57 Dose: 3 ml Documented by: GLORIA Labs CBC & Chem 7: 04/23/21 05:56 04/24/21 06:26 Labs: Laboratory Results - last 24 hr 04/23/21 04/24/21 21:52 06:26 Estim Creat Clear Calc 140.5 Estimated GFR > 60 Vancomycin Trough 12.0 Microbiology Microbiology Results: Microbiology 04/22/21 10:08 Blood Culture - Preliminary Blood - Venous No growth after 48 hours. 04/22/21 10:05 Blood Culture - Preliminary Blood - Venous No growth after 48 hours. Assessment and Plan (1) Cirrhosis: Status: Acute (2) Drug abuse, IV: Status: Acute (3) COVID-19: Status: Acute (4) Abscess of male pelvis: Status: Acute Plan This is a 35 yo M with a PMH of IVDU, prior MRSA bacteremia and MRSA peritonitis with multiple intra-abdominal abscesses, cirrhosis, HCV who was most recently admitted to [facility] from 04/01/21 to 04/04/21 for intraabdominal polymicrobial abscess (MRSA + Strep Anginosus) requiring CT guided drainage who left AMA and now returns to the ED with worsening abdominal pain. His CT scan has shown improvement in the previously drained abscess, but a new abscess has formed. He will require further drainage and IV antibiotics. Intra-abdominal abscess likely MRSA and due to non-compliance with recommended care. He has signed out AMA multiple times not amenable to IR drainage due to location seen by general surgery, plan for OR tomorrow Continue IV vancomcyin + zosyn (until blood cx negative, then likely vancomcyin x 6 weeks) He has been informed that he will continue to have recurrence of his abscesses if not treated adequately; He reports understanding and at this time, is in agreement with the outlined treatment ? Decompensated cirrhosis with ascites will likely require drainage vs resumption of diuretics COVID positive no respiratory symptoms; his CXR findings likely related to atelectasis he is at high risk for severe COVID given his immunocompromised state from cirrhosis monitor Moderate Protein calorie malnutrition seen by nutrition supplements ordered Active IVDU addiction medicine following Full Code DVT pptx mechanical devices Attending: dr. gates Quality Stroke Does the patient have a stroke diagnosis?: No VTE Prior VTE?: No VTE Risk Level:: Medical - moderate - high VTE Device Contraindication: Treatment Not Indicated VTE Drug Contraindication: N/A - Med Ordered
[2021-04-24 15:07] VITALS: BP 136/80; PULSE 72; RESP 20; TEMP 36.9; O2SAT 97
[2021-04-24] MEDS: Morphine Sulfate 2 MG/ML CARTRIDGE IVPUSH (19:02)
--- NOTE | 2021-04-24 20:05 | HO.ADDICTPRO ---
Subjective Subjective Date of Service: 04/24/21 Reason For Visit: abdominal pain Interim History: Patient seen in follow up Awake, alert, eating dinner Flat affect, irritable Discussed methadone dosing, patient stated give me as much as possible , this telegraphic typewriter operator chief inquired if patient was experiencing withdrawal sx, and he shrugged. He stated that he was using 2 bags daily while he was in the community. He states that he is having cravings Per notes, patient has been sleeping most of the day and denying pain to attending earlier in the day. Review of Systems Medical Review of Systems: unchanged Mental Status Exam Mental Status Exam Patient Appearance: Appropriate Patient Behavior: Poor Eye Contact Mood Description: Flat Affect Description: Flat Diagnostics Vital Signs (24Hr): Vital Signs - 24 hr 04/23/21 23:32 04/24/21 04:00 04/24/21 07:50 Temperature 98.5 F 98.5 F 96.7 F L Pulse Rate 73 60 78 Respiratory Rate 18 16 20 Blood Pressure 134/81 123/70 129/86 Pulse Oximetry 97 96 97 04/24/21 11:38 04/24/21 15:07 Temperature 98.3 F 98.4 F Pulse Rate 62 72 Respiratory Rate 20 20 Blood Pressure 122/82 136/80 Pulse Oximetry 97 97 BMI result Body Mass Index 19.2 Labs Results: 04/23/21 05:56 04/24/21 06:26 Labs: Laboratory Results - last 48 hr 04/23/21 04/23/21 04/23/21 05:56 05:56 21:52 WBC 6.7 RBC 3.58 L Hgb 10.1 L Hct 32.0 L MCV 89.4 MCH 28.2 MCHC 31.6 RDW 14.5 Plt Count 169 MPV 9.0 L Absolute Nucleated RBC 0.000 Nucleated RBC % (auto) 0.0 Sodium 138 Potassium 3.8 Chloride 108 Carbon Dioxide 25 Anion Gap 9 L BUN 7 L Creatinine 0.56 Estim Creat Clear Calc 150.6 Estimated GFR > 60 Random Glucose 96 Calcium 8.2 L Vancomycin Trough 12.0 04/24/21 06:26 WBC RBC Hgb Hct MCV MCH MCHC RDW Plt Count MPV Absolute Nucleated RBC Nucleated RBC % (auto) Sodium Potassium Chloride Carbon Dioxide Anion Gap BUN Creatinine 0.60 Estim Creat Clear Calc 140.5 Estimated GFR > 60 Random Glucose Calcium Vancomycin Trough Imaging Radiology Impressions: ITS Impressions Abdomen/Pelvis CT 04/22/21 09:45 IMPRESSION: Cirrhotic-appearing liver, splenomegaly and ascites. Left subdiaphragmatic abscess decreased in size from prior exam. New central pelvic abscess superior to the bladder. Left lower lateral rib fractures of varying ages and overlying soft tissue swelling of the left lateral chest wall and upper abdominal wall not appreciably changed. Fleischner guidelines were followed. Chest X-Ray 04/22/21 12:12 IMPRESSION: Low lung volumes and atelectasis or small infiltrates at the lung bases. Pelvis CT 04/23/21 12:15 IMPRESSION: Inability to perform CT fluoroscopic guided drainage of pelvic abscess due to lack of safe path to the collection. Medications Medications Current Medications Acetaminophen (Acetaminophen 325 Mg Tablet) 650 mg PO Q6H PRN PRN Reason: Pain, Mild (Pain Scale 1-3) Vancomycin HCl 1,250 mg/ (Sodium Chloride) 250 mls @ 166.667 mls/hr IV Q12H [facility] Last Infusion: 04/24/21 13:25 Dose: Infused Documented by: Piperacillin Sod/Tazobactam (Sod 3.375 gm/ Sodium Chloride) 50 mls @ 100 mls/hr IV Q6H [facility] Last Infusion: 04/24/21 17:12 Dose: Infused Documented by: Methadone HCl (Methadone Hcl 20 Mg/2 Ml Oral.Conc) 15 mg PO DAILY [facility] Ondansetron HCl (Ondansetron Hcl 4 Mg/2 Ml Vial) 4 mg IVPUSH Q8H PRN PRN Reason: Nausea and Vomiting Oxycodone HCl (Oxycodone Hcl Immed Release 5 Mg Tablet) 10 mg PO Q6H PRN PRN Reason: Pain, Severe (Pain Scale 7-10) Last Admin: 04/24/21 19:05 Dose: 10 mg Documented by: Pharmacy Consult (Consult Rx Vancomycin Dosing) 1 each MISCELLANE DAILY PRN PRN Reason: Consult order Sodium Chloride (0.9 % Sodium Chloride Flush 3 Ml Syringe) 3 ml IVFLUSH QSHIFT [facility] Last Admin: 04/24/21 16:39 Dose: 3 ml Documented by: Allergies Allergies Allergy/AdvReac Type Severity Reaction Status Date / Time No Known Allergies Allergy Verified 04/22/21 07:05 [No Known Allergies*] Assessment & Plan Assessment & Plan (1) Opioid use disorder: Status: Acute Code(s): F11.90 - Opioid use, unspecified, uncomplicated Assessment and Plan: will start with methadone 15mg for now. If patient tolerates and does not appear sedated, will increase dose follow up in AM I spent ___20___ minutes with the patient and/or on the patient floor today, greater than?50% of which was spent counseling/coordinating care.
--- NOTE | 2021-04-24 20:06 | PC.NURSE ---
Patient was insistent on leaving AMA at 6 pm. This nurse talked to him about the importance of staying so he could have his surgery in the morning. Patient insisted the pain medication was not helping him and wanted to leave. This nurse told him to wait while I talked to the doctor to see if different pain medication could be given to him. M2 mg morphine was given to him at 19:00 and 10mg Oxy also given. At 19:30 patient still insistent on leaving stating its personal now.
[2021-04-24] MEDS: HYDROmorphone HCl 1 MG/ML SYRINGE 2 MG IVPUSH (20:50)
[2021-04-24] MEDS: Melatonin 3 MG TABLET 6 MG PO (22:14)
[2021-04-24 23:13] VITALS: BP 132/69; PULSE 71; RESP 20; TEMP 36.1; O2SAT 97
[2021-04-25 03:33] VITALS: BP 127/79; PULSE 67; RESP 18; TEMP 38.3; O2SAT 96
[2021-04-25] MEDS: Piperacillin Sodium/Tazobactam 3.375 GM in 0.9 % Sodium Chloride 50 ML IV ×2 (03:39→09:00)
[2021-04-25] MEDS: HYDROmorphone HCl 1 MG/ML SYRINGE IVPUSH (03:39)
[2021-04-25 07:12] LABS: Hematocrit 33.9 % (42.0-52.0); Hemoglobin 10.8 g/dl (14.0-18.0); Mean Corpuscular HGB Conc 31.9 g/dl (31.0-36.0); Mean Corpuscular Hemoglobin 28.3 pg (27.0-33.0); Mean Corpuscular Volume 88.7 fL (80.0-98.0); Mean Platelet Volume 9.4 fL (9.4-12.4); Platelet Count 157 X10*3/uL (160-400); Red Blood Count 3.82 X10*6/uL (4.60-5.80); Red Cell Distribution Width 14.6 % (11.0-16.0); White Blood Count 7.2 X10*3/uL (4.8-10.8)
[2021-04-25 07:26] LABS: Anion Gap 8 (12-20); Blood Urea Nitrogen 9 mg/dL (9-16); Calcium 8.2 mg/dL (8.4-10.2); Carbon Dioxide 24 mmol/L (22-29); Chloride 111 mmol/L (96-108); Creatinine Clr Calc Pharmacy 131.8; Estimated Glomerular Filt Rate > 60; Glucose Random 110 mg/dL (60-115); Potassium 3.9 mmol/L (3.3-5.1); Sodium 139 mmol/L (135-145)
[2021-04-25 07:54] VITALS: BP 124/83; PULSE 63; RESP 18; TEMP 37.2; O2SAT 98
[2021-04-25 08:00] VITALS: PULSE 63
[2021-04-25] MEDS: methADONE HCl 20 MG/2 ML ORAL.CONC 15 MG PO (09:00)
[2021-04-25] MEDS: 0.9 % Sodium Chloride Flush 3 ML SYRINGE IVFLUSH (09:00)
[2021-04-25 09:10] LABS: Vancomycin Trough 10.5 mcg/mL (10.0-20.0)
--- NOTE | 2021-04-25 09:14 | HE.PHANOTE ---
VANCOMYCIN ADDENDUM: Patients trough came back at 10.5 and his Scr is still in normal range at 0.64. I will continue the current regimen of 1250 mg Q24H which predicts a AUC of 440.
--- NOTE | 2021-04-25 10:08 | MHC.CM.PN ---
Patient is not yet medically cleared for dc (required IV Dilaudid today, IV Zosyn); return to the community vs care team interventions is the goal for dc and CM will follow for possible need to adjust the dc plan.
[2021-04-25 11:38] VITALS: BP 117/80; PULSE 71; RESP 18; TEMP 37.3; O2SAT 97
[2021-04-25] MEDS: oxyCODONE HCl Immed Release 5 MG TABLET 10 MG PO (13:54)
--- NOTE | 2021-04-25 14:12 | MHC.CLN ---
F/U DIET RX: 2GM NA -APPROPRIATE PT STATED HE HAS A DECREASED APPETITE DUE TO ABDOMINAL PAIN WILL RE-START ENSURE SUPPLEMENT TID TO PROVIDE 1050 KCALS, 60 GRAMS PROTEIN MONITOR PO INTAKE AND SUPPLEMENT ACCEPTANCE
--- NOTE | 2021-04-25 15:53 | PM.DS ---
DS: Providers Provider Date of Service: 04/25/21 Date of admission: 04/22/21 11:18 Date of discharge: 04/25/21 Primary care physician: Alberto Cole MD Consults: 04/22/21 13:01 Addiction Medicine Routine Consulting Provider: Elvira Chavez Reason for consultation: active IVDU, ? methadone 04/24/21 08:40 Consult to General Surgery Routine Consulting Provider: Garo Chavez Reason for consultation: intraabdominal abscess Has provider been notified: No Attending physician on discharge: Steven Larkin Discharging clinician: Lucia Moses DS: Diagnosis Discharge Diagnosis (1) Opioid use disorder: Status: Acute (2) Abscess of male pelvis: Status: Acute (3) Cirrhosis: Status: Acute (4) COVID-19: Status: Acute DS: Summary Hospital Course Hospital Course: From H&P on day of admission This is a 35 yo M with a PMH as outlined below who presents to [facility] ED with complaints of abdominal pain -- diffuse in nature, 10/10 severity, pressure like, with associated chills of 3 to 4 days duration. The patient has a history of MRSA peritonitis and prior intra-abdominal abscess. He was last hospitalized at [facility] from 04/01/21 to 04/04/21 for treatment of his abscess, but decided to sign out against medical advice. He cites personal issues that he had to take care of as the reason for leaving against medical advice. He reports that he has taken the antibiotics (PO doxy) that he was prescribed previously. He reports active IVDU with last use the day prior to admission. Work up in the ED showed a CT abd/pelvis showed: Cirrhotic-appearing liver, splenomegaly and ascites. Left subdiaphragmatic abscess decreased in size from prior exam. New central pelvic abscess superior to the bladder. Left lower lateral rib fractures of varying ages and overlying soft tissue swelling of the left lateral chest wall and upper abdominal wall not appreciably changed. ? He had blood cultures drawn, was given IV vancomcyin/zosyn, along with analgesics. A CT guided IR drainage of the abscess has been ordered. Incidentally, he was found positive for COVID but denies any respiratory symptoms and remains with normal oxygen saturation. COVID vaccination status: reports Single dose Vaccine, no booster. This is a 35 yo M with a PMH of IVDU, prior MRSA bacteremia and MRSA peritonitis with multiple intra-abdominal abscesses, cirrhosis, HCV who was most recently admitted to [facility] from 04/01/21 to 04/04/21 for intraabdominal polymicrobial abscess (MRSA + Strep Anginosus) requiring CT guided drainage who left AMA and now returns to the ED with worsening abdominal pain. His CT scan has shown improvement in the previously drained abscess, but a new abscess has formed. He will require further drainage and IV antibiotics. Intra-abdominal abscess likely MRSA and due to non-compliance with recommended care. He has signed out AMA multiple times. on admission He was been informed that he will continue to have recurrence of his abscesses if not treated adequately; He reports understanding and at this time, is in agreement with the outlined treatment. He was treated with IV vancomcyin + zosyn (until blood cx negative, then likely vancomcyin x 6 weeks) The abscess was not amenable to IR drainage due to location He was seen by general surgery with plan for drainage in the OR today. Unfortunately this morning the patient declined to proceed. He decided that he would not pursue any further treatment and declined to have IV. He indicated he would like to go back on hospice. Case management was contacted with plan for hospice evaluation later today. He then informed his nurse he wanted to leave AMA. I discussed with him the risks involved in leaving AMA yet again. He was awake, alert and oriented and competent to make this decision and denied any suicidal ideation at the time. He was able to verbalize to me that he understands that leaving could result in his from overwhelming infection. He was unable to be convinced to stay for antibiotics or any other form of treatment. He was unwilling to wait to be evaluated by the hospice team. ? Decompensated cirrhosis with ascites will likely require drainage vs resumption of diuretics COVID positive no respiratory symptoms; his CXR findings likely related to atelectasis. he is at high risk for severe COVID given his immunocompromised state from cirrhosis. at the time of discharge he did not have any respiratory symptoms and was not requiring supplemental oxygen. He was encouraged to follow CDC guidelines for isolation. Opiate use disorder. Patient was seen by addiction medicine. He was started on methadone and also treated with IV narcotics for abdominal pain. Time Spent with Patient Time attestation: Total time spent providing and/or coordinating discharge services: Discharge coordination time: Greater than 30 minutes Quality: Stroke Does the patient have a stroke diagnosis?: No Physical Exam Vital Signs: Vital Signs: Last Vital Signs Temp 99.1 F 04/25/21 11:38 Pulse 71 04/25/21 11:38 Resp 18 04/25/21 11:38 BP 117/80 04/25/21 11:38 Pulse Ox 97 04/25/21 11:38 BMI result Body Mass Index 19.2 Const: Other: chronically ill appearing General: comfortable, no acute distress, alert and awake Nutritional Appearance: thin Resp: Effort & Inspection: normal respiratory effort and able to speak in complete sentences Cardio: Rate: regular rate Heart sounds: S1 normal heart sound present and S2 normal heart sound present GI: Other: softly distended, non-tender Percussion: Yes Fluid wave present Extrem: Other: no leg edema DS: Data Data Completed and Pending Completed studies during hospitalization [Text1]: Procedures Drainage of Peritoneal Cavity, Percutaneous Approach (04/01/21) Insertion of Infusion Device into Right External Jugular Vein, Percutaneous Approach (01/15/21) Insertion of Infusion Device into Superior Vena Cava, Percutaneous Approach (01/17/21) Labs on day of discharge: Laboratory Results - last 24 hr 04/25/21 04/25/21 04/25/21 06:34 06:34 08:17 WBC 7.2 RBC 3.82 L Hgb 10.8 L Hct 33.9 L MCV 88.7 MCH 28.3 MCHC 31.9 RDW 14.6 Plt Count 157 L MPV 9.4 Absolute Nucleated RBC 0.000 Nucleated RBC % (auto) 0.0 Sodium 139 Potassium 3.9 Chloride 111 H Carbon Dioxide 24 Anion Gap 8 L BUN 9 Creatinine 0.64 Estim Creat Clear Calc 131.8 Estimated GFR > 60 Random Glucose 110 Calcium 8.2 L Vancomycin Trough 10.5 Preliminary micro results at discharge 04/22/21 10:08 Blood Culture - Preliminary Blood - Venous No growth after 48 hours. 04/22/21 10:05 Blood Culture - Preliminary Blood - Venous No growth after 48 hours. Discharge Plan Discharge Patient Disposition: Left Against Medical Advice Discharge Diagnosis: abdominal abscess liver cirrhosis IVDU Referrals: Alberto Cole MD [Primary Care Provider] - 1 Week Discharge Medications: No Action furosemide [Lasix] 40 mg tablet 40 mg PO BID Qty: 60 0RF spironolactone 25 mg tablet 25 mg PO BID Qty: 60 0RF doxycycline hyclate 100 mg capsule 100 mg PO BID Qty: 56 0RF Discharge Orders: Discharge Order (Routine); Ordered 04/25/21 Ordered By: Lucia Moses Care Plan Goals: see below Health Concerns: opioid use disorder abdominal abscess liver cirrhosis covid 19 Plan of Treatment: left against medial advice. recommend to follow CDC guidelines for isolation Assessment: pt admitted for abdominal abscess. declined surgical drainage and left AMA. Discharge Date/Time: 04/25/21 14:58
== END 2021-04-25 14:58 | disposition left against medical advice (07) | DRG 248 ==
LOC: HO.ED 10:18 → HO.EDOVER 11:38 → HO.IMC 04-23 14:07
PROVIDERS: Admitting Provider Family Medicine; Emergency Provider Emergency Medicine; PCP Internal Medicine; Visit Provider Physician Assistant Medical
DX: K65.1 Peritoneal abscess (principal); U07.1 COVID-19; E43 Unspecified severe protein-calorie malnutrition; R64 Cachexia; R18.8 Other ascites; K74.60 Unspecified cirrhosis of liver; F10.10 Alcohol abuse, uncomplicated; J98.11 Atelectasis; B95.62 Methicillin resistant Staphylococcus aureus infection as the cause of diseases classified elsewhere; F11.23 Opioid dependence with withdrawal; Z86.19 Personal history of other infectious and parasitic diseases; Z91.19 Patient's noncompliance with other medical treatment and regimen; Z68.1 Body mass index [BMI] 19.9 or less, adult; Z79.899 Other long term (current) drug therapy
CPT/HCPCS: 36415; 71045; 72192; 74177; 80048; 80076; 80202; 80307; 82565; 83605; 83690; 83735; 85025; 85027; 85610; 85730; 87040; 87635; 96361; 96365; 96367; 96375; 99285; J1170; J2270; J2543; J3370; Q9967

== ENCOUNTER 2021-10-22 13:45 | Outpatient (REF) | payer OTHER, SELFPAY ==
[2021-10-22 14:02] LABS: MANUAL DIFF FLAG NO
[2021-10-22 14:19] LABS: Basophils Percent Auto 0.3 % (0-2); Eosinophils Absolute Auto 0.1 X10*3/uL (0.0-0.4); Eosinophils Percent Auto 1.4 % (0-4); Hematocrit 46.7 % (42.0-52.0); Hemoglobin 14.9 g/dl (14.0-18.0); Imm Gran Abs Auto 0.02 X10*3/uL (0.00-0.03); Imm Gran Pct Auto 0.3 % (0.0-0.4); Lymphocytes Absolute Auto 1.4 X10*3/uL (1.2-4.9); Lymphocytes Percent Auto 18.8 % (20-40); Mean Corpuscular HGB Conc 31.9 g/dl (31.0-36.0); Mean Corpuscular Hemoglobin 28.7 pg (27.0-33.0); Mean Corpuscular Volume 89.8 fL (80.0-98.0); Mean Platelet Volume 9.1 fL (9.4-12.4); Monocytes Absolute Auto 0.5 X10*3/uL (0.1-1.2); Monocytes Percent Auto 6.8 % (2-11); Neutrophils Absolute Auto 5.3 x10*3/uL (2.0-8.3); Neutrophils Percent Auto 72.4 % (45-73); Platelet Count 159 X10*3/uL (160-400); Red Cell Distribution Width 15.5 % (11.0-16.0); White Blood Count 7.2 X10*3/uL (4.8-10.8)
[2021-10-22 14:42] LABS: Anion Gap 16 (12-20); Blood Urea Nitrogen 11 mg/dL (9-16); Calcium 9.2 mg/dL (8.4-10.2); Carbon Dioxide 27 mmol/L (22-29); Chloride 102 mmol/L (96-108); Estimated Glomerular Filt Rate > 60; Glucose Random 98 mg/dL (60-115); Potassium 4.4 mmol/L (3.3-5.1); Sodium 141 mmol/L (135-145)
== END 2021-10-22 13:46 | disposition home or self-care (01) ==
LOC: HO.LAB 13:45
PROVIDERS: PCP Internal Medicine; Visit Provider Internal Medicine
DX: R51.9 Headache, unspecified (principal); Z13.0 Encounter for screening for diseases of the blood and blood-forming organs and certain disorders involving the immune mechanism
CPT/HCPCS: 36415; 80048; 85025

== ENCOUNTER 2022-01-14 20:44 | Emergency (ER) | payer OTHER, SELFPAY ==
[2022-01-14 21:56] VITALS: BP 121/85; PULSE 112; RESP 18; TEMP 36.9; O2SAT 95; BMI 19.2
[2022-01-14 23:49] VITALS: BP 125/70; PULSE 91; RESP 18; TEMP 37; O2SAT 98
--- OUTSIDE RECORDS SUMMARY | 2022-01-14 23:58 | XMS_ITS ---
:1985 Author Care Team Providers Name Role Phone SHERIDAN BARKER Primary Care Provider [phone] [facility]) OTHER [phone] Allergies Code Code System Name Reaction Severity Status Onset NKDA ? Medications No Medications Reported Notes: meds reviewed; see MAR for deta ils Problems Name Status Onset Date Source ? Chronic Hepatitis C Active 02/04/2021 ? Severe Protein-calorie Malnutrition (Proctor: Less than 60 Active 02/04/2021 ? Percent of Standard Weight) Hyponatremia Active 02/04/2021 ? Anemia Active 02/04/2021 ? Leukemoid Reaction Active 02/04/2021 ? Alcohol Dependence Active 02/04/2021 ? Opioid Dependence Active 02/04/2021 ? Tobacco Dependence Syndrome Active 02/04/2021 ? Septic Pulmonary Embolism Active 02/04/2021 ? Chronic Constipation Active 02/04/2021 ? Primary Bacterial Peritonitis Active 02/04/2021 ? Cellulitis of Hand Active 02/04/2021 ? Cellulitis of Foot Active 02/04/2021 ? Ascites Active 02/04/2021 ? Hematoma of Abdominal Wall Active 02/04/2021 ? Bacteremia Due to Methicillin Resistant Staphylococcus Aureus Ac tive 02/04/2021 ? Decompensated Cirrhosis of Liver Active 02/04/2021 ? End Stage Liver Disease Active 07/15/2021 ? Anxiety Active 07/30/2021 ? Procedures None recorded. Results Lab Results None recorded. Past Encounters 08/15/2021 End Stage Liver Disease Merlene Cameron PA-C: [address] [place] [address], Ph. 08/06/2021 End Stage Liver Disease Merlene Cameron PA-C: [address] [place] [address], Ph. 07/31/2021 End Stage Liver Disease; Posttraumatic S tress Disorder; Anxiety Merlene Cameron PA-C: [address], [place] [address], Ph. 07/24/2021 End Stage Liver Disease; Altered Mental Status Merlene Cameron PA-C: [address], [place] [address], Ph. 07/15/2021 Chronic Pain Syndrome; End Stage Liver D isease; Anxiety; Abdominal Abscess; Hepatic Encephalopathy; Tobacco Dependence Syndrome; Severe Protein-calorie Malnutrition (Proctor: Less than 60 Percent of Stand mikey Weight); Opioid Dependence; Chronic Hepatitis C; Chronic Constipation; Alcohol Dependence; Primary Bacterial Peritonitis Amber Moreno MD: [facility] [address], [place] [address], Ph. 07/14/2021 End Stage Liver Disease Merlene Cameron PA-C: [address], [place] [address], Ph. 07/11/2021 End Stage Liver Disease Merlene Cameron PA-C: [address], [place] [address], Ph. 07/04/2021 End Stage Liver Disease Merlene Cameron PA-C: [address], [place] [address], Ph. 07/03/2021 End Stage Liver Disease; Chronic Pain Sy ndrniru Philippe MD: [address], [place] [address], Ph. 07/02/2021 Anxiety Merlene Cameron PA-C: [address], [place] [address], Ph. 06/26/2021 End Stage Liver Disease Merlene Cameron PA-C: [address], [place] [address], Ph. 06/20/2021 End Stage Liver Disease; Abdominal Pain; Weight Gain Merlene Cameron PA-C: [address], [place] [address], Ph. 06/06/2021 End Stage Liver Disease; Palliative Care Merlene Cameron PA-C: [address], [place] [address], Ph. 06/05/2021 End Stage Liver Disease Merlene Cameron PA-C: [address], [place] [address], Ph. 05/26/2021 End Stage Liver Disease Merlene Cameron PA-C: [address] [place] [address], [place] [address], Ph. 05/23/2021 Cocaine Abuse Merlene Cameron PA-C: [facility] [address], [place] [address], Ph. 05/21/2021 End Stage Liver Disease; Abdominal Absce ss; Chronic Pain Syndrome; Hepatic Encephalopathy; Tobacco Dependence Syndrome; Severe Protein-calorie Malnutrition (Proctor: Less than 60 Percent of Standard Weigh t); Opioid Dependence; Chronic Hepatitis C; Chronic Constipation; Alcohol Dependence Wally Philippe MD: [address] [place] [address], [place] [address], Ph. 05/20/2021 End Stage Liver Disease; Abdominal Absce ss; Chronic Pain Syndrome; Hepatic Encephalopathy; Advance Care Planning; Tobacco Dependence Syndrome Merlene Cameron PA-C: [address] [place] [address], [facility] [place] [address], Ph. 03/06/2021 Ascites Due to Alcoholic Cirrhosis; Absc ess of Chest Wall; End Stage Liver Disease Merlene Cameron PA-C: [address] [place] [address], [facility] [place] [address], Ph. 02/26/2021 Edema of Lower Extremity; Abscess of [address] st Wall; Chronic Pain Syndrome; Palliative Care Merlene Cameron PA-C: [address], [place] [address], Ph. 02/25/2021 Abscess of Chest Wall Merlene Cameron PA-C: [address] [place] [address], [facility] [place] [address], Ph. 02/24/2021 Abdominal Mass CASSIE Jules: [address] [place] [phone], Ph. 02/20/2021 End Stage Liver Disease; Chronic Constip ation Merlene Cameron PA-C: [address] [place] [address], [facility] [place] [address], Ph. 02/17/2021 Chronic Constipation; Bacteremia; Retent ion of Urine; Ascites Due to Alcoholic Cirrhosis; End Stage Liver Disease Merlene Cameron PA-C: [address] [place] [address], [place] [address], Ph. 02/14/2021 Ascites Due to Alcoholic Cirrhosis; Bact eremia Due to Methicillin Resistant Staphylococcus Aureus; Palliative Care Merlene Cameron PA-C: [address] [place] [address], [place] [address], Ph. 02/11/2021 Bacteremia Due to Methicillin Resistant Staphylococcus Aureus; End Stage Liver Disease Merlene Cameron PA-C: [address] [place] [address], [place] [address], Ph. 02/10/2021 Hepatic Encephalopathy; Bacteremia Due t o Methicillin Resistant Staphylococcus Aureus; End Stage Liver Disease; Palliative Care Merlene Cameron PA-C: [address] [place] [address], [facility] [place] [address], Ph. 02/07/2021 End Stage Liver Disease; Bacteremia Due to Methicillin Resistant Staphylococcus Aureus; Palliative Care; Cellulitis of Foot; Severe Protein-calorie Malnutrition (Proctor: Less than 60 Percent of Standard Weight); Cellulitis of Hand; Hematoma of Abdominal Wall; Hyponatremia; Leukemoid Reaction; Primary Bacterial Peritonitis; Septic Pulmonary Embolism; Tobacco Dependence Syndrome; Opioid Dependence; Chron ic Hepatitis C; Chronic Constipation; Al cohol Dependence Amber Moreno MD: [address] [place] [phone], Ph. 02/06/2021 Advance Care Planning; Bacteremia Due to Methicillin Resistant Staphylococcus Aureus; End Stage Liver Disease; Palliative Care Merlene Cameron PA-C: [address] [place] [address], [facility] [place] [address], Ph. 02/04/2021 Bacteremia Due to Methicillin Resistant Staphylococcus Aureus; Cellulitis of Foot; Cellulitis of Hand; Decompensated Cirrhosis of Liver; Hematoma of Abdominal Wall; Hyponatremia; Leukemoid Reaction; Jennifer javid Bacterial Peritonitis; Septic Pulmo nary Embolism; Tobacco Dependence Syndrome; Opioid Dependence; Chronic Hepatitis C; Chronic Constipation; Ascites; Anemia; Alcohol Dependence; Severe Protein-redd ritika Malnutrition (Proctor: Less than 60 Pe rcent of Standard Weight) ARIELLA SappC: [address] [place] [address], [place] [address], Ph. Social History Tobacco Smoking Status Heavy Tobacco Smoker (1/2 pack Notes : varies depending on per day) finances and access Vaccine List Vaccine Type COVID-19 vaccine, vector-nr, [id number], PF , 0.5 mL ([facility]) 08/27/2020 COVID-19, mRNA, LNP-S, PF, 30 mcg/0.3 mL dose ([employer]) 05/31/2021 influenza, injectable, quadrivalent 05/31/2021 Notes: Immunizations reconciled as of 06/23/21 Needs PCV20 and then pneumococcal vaccin es will be complete per CDC guidelines as of this date Plan of Care Reminders Provider Appointments None recorded. ? ? Lab None recorded. ? ? Referral None recorded. ? ? Procedures None recorded. ? ? Surgeries None recorded. ? ? Imaging None recorded. ? ? Vitals 08/15/2021 11:39AM Routine Rounding Visit Height Blood Pressure 5 ft 9 in 08/06/2021 02:15PM Acute Rounding Visit Height Blood Pressure 5 ft 9 in 07/31/2021 01:02PM Acute Rounding Visit Height Blood Pressure 5 ft 9 in 07/24/2021 12:59PM Acute Rounding Visit Height Blood Pressure 5 ft 9 in 07/15/2021 02:37PM Routine Rounding Visit Height Weight BMI Blood Pressure 5 ft 9 in 07/14/2021 09:47AM Acute Rounding Visit Height Blood Pressure 5 ft 9 in 07/11/2021 02:13PM Acute Rounding Visit Height Blood Pressure 5 ft 9 in 07/04/2021 01:40PM Acute Rounding Visit Height Blood Pressure 5 ft 9 in 112/90 mm[Hg] 07/02/2021 09:35AM Acute Rounding Visit Height Blood Pressure 5 ft 9 in 112/90 mm[Hg] 06/26/2021 11:46AM Acute Rounding Visit Height Weight BMI Blood Pressure 5 ft 9 in 130 lbs 19.2 kg/m2 112/90 mm[Hg] 06/20/2021 09:18AM Routine Rounding Visit Height Weight BMI Blood Pressure 5 ft 9 in 130 lbs 19.2 kg/m2 119/61 mm[Hg] 06/06/2021 03:02PM Acute Rounding Visit Height Blood Pressure 5 ft 9 in 125/26 mm[Hg] 06/05/2021 01:53PM Acute Rounding Visit Height 5 ft 9 in 05/26/2021 04:16PM Acute Rounding Visit Height Weight BMI Blood Pressure 5 ft 9 in 130.1 lbs 19.2 kg/m2 120/75 mm[Hg] 05/23/2021 10:25AM Acute Rounding Visit Height Weight BMI Blood Pressure 5 ft 9 in 120/75 mm[Hg] 05/21/2021 12:21PM Admitting H&P Height Blood Pressure 5 ft 9 in 120/75 mm[Hg] 05/20/2021 10:43AM Initial Intake Note Height Blood Pressure 5 ft 9 in 03/06/2021 04:26PM Routine Rounding Visit Height Blood Pressure 5 ft 9 in 02/26/2021 02:55PM Acute Rounding Visit Height Blood Pressure 5 ft 9 in 02/25/2021 09:40AM Acute Rounding Visit Height Blood Pressure 5 ft 9 in 02/24/2021 10:08AM Acute Rounding Visit Height Blood Pressure 5 ft 9 in 127/69 mm[Hg] 02/20/2021 12:45PM Acute Rounding Visit Height Blood Pressure 5 ft 9 in 02/17/2021 04:07PM Acute Rounding Visit Height Blood Pressure 5 ft 9 in 02/14/2021 10:23AM Acute Rounding Visit Height Blood Pressure 5 ft 9 in 02/11/2021 12:03PM Acute Rounding Visit Height Blood Pressure 5 ft 9 in 02/10/2021 02:23PM Acute Rounding Visit Height Blood Pressure 5 ft 9 in 02/07/2021 10:58AM Admitting H&P Height Weight BMI Blood Pressure 5 ft 9 in 103.6 lbs 15.3 kg/m2 127/69 mm[Hg] 02/06/2021 01:32PM Acute Rounding Visit Height Blood Pressure 5 ft 9 in 02/04/2021 02:23PM Initial Intake Note Height Weight BMI Blood Pressure 5 ft 9 in 127.6 lbs 18.8 kg/m2 135/82 mm[Hg]
--- OUTSIDE RECORDS SUMMARY | 2022-01-14 23:58 | XMS_ITS ---
:1985 Author Organization [facility] Address [address] [place] [address] Care Team Providers Name Role Phone Enoch Farris Jr Unavailable Unavailable PROBLEMS Type Condition ICD9-CM Code [id number] Code Onset Condition SNO MED Code Dates Status Problem Chronic B18.2 Active hepatitis C without hepatic coma Problem Alcohol abuse F10.10 Active 822362 05 Problem Chronic B18.2 Active 790971781 hepatitis C Problem Alcoholic K70.31 Active 083404813 cirrhosis of liver with ascites ALLERGIES No Known Allergies ENCOUNTERS Encounter Location Date Diagnosis [facility] [address] [facility] [address] [place] [address] [facility] [address] [facility] [address] [place] [address] [facility] [address] [facility] [address] [place] [address] [facility] [address], Al cohol abuse F10.10 and [facility] [address] [place] hepat[place] C [address] without hepatic coma B18.2 [facility] [address] [facility] [address] [place] [address] [facility] [address] [facility] [address] [place] [address] [facility] [address] [facility] [address] [place] [address] [facility] [address] [place] ronic hepatitis C [facility] [address] [place] without hepatic coma [address] B18.2 [facility] [address] [facility] [address] [place] [address] [facility] [address], He suly C [address] [place] [address] IMMUNIZATIONS No Known Immunizations SOCIAL HISTORY Never Assessed REASON FOR REFERRAL FUNCTIONAL STATUS PLAN OF CARE Activity Details Follow Up 6 Months Reason: VITAL SIGNS Weight 163 lbs 2016-08-07 Weight 152 lbs 2015-03-28 Weight 141 lbs 2013-12-15 Height 69 in 2016-08-07 Height 69 in 2015-03-28 Height 69 in 2013-12-15 BMI 24.07 kg/m2 2016-08-07 BMI 22.44 kg/m2 2015-03-28 BMI 20.82 kg/m2 2013-12-15 Heart Rate 76 /min 2016-08-07 Heart Rate 104 /min 2013-12-15 Blood pressure systolic 116 mm Hg 2016-08-07 Blood pressure diastolic 78 mm Hg 2016-08-07 MEDICATIONS Medication Instructions Dosage Frequency Start Date End Date Duration S tatus traZODone HCl Active Methadone HCl Orally Once a day 1 tablet 24h Active 40 MG PROCEDURES No Known procedures RESULTS Name Result Date Reference Range LIVER PROFILE 2016-08-11 PROTEIN, TOTAL 7.7 6.5-8.0 ALBUMIN 4.6 3.5-5.0 BILIRUBIN, TOTAL 1.2 0.0-1.0 BILIRUBIN, DIRECT 0.5 0.0-0.5 ALK. PHOS. 86 39-117 GOT 315 5-37 GPT 260 0-40 HCV LIVER FIBROSIS, FIBRO TEST 2016-08-11 FIBROSIS SCORE 0.56 () FIBROSIS STAGE F2 () FIBROSIS INTERPRETATION SEE NOTE () NECROINFLAMMAT ACTIVITY SCORE 0.87 () NECROINFLAMMAT ACTIVITY GRADE A3 () NECROINFLAMMAT ACTIVITY INTERP SEE NOTE ( ) [id number] 231 106-279 HAPTOGLOBIN 132 43-212 APOLIPOPROTEIN A1 188 94-176 TOTAL BILIRUBIN 1.0 0.2-1.2 GGT 1278 3-90 ALT 210 9-46 REFERENCE ID [id number] () FOOTNOTE SEE NOTE () HCV RNA QN PROG TO GENOTYPE 2016-08-11 HCV RNA PCR QN 11.0E6 <15 HCV RNA PCR QN 7.04 <1.18 HCV GENOTYPING SEE NOTE () HCV GENOTYPE LIPA 1a () REASON FOR VISIT Pt no show, PATIENT PRESENTS TODAY FOR HEP C, HEP C, R/S''d OV, patient presents today for HEP C, fyi/girlfriend r/s pts appt today for june, patient presents today for Hep C, PATIENT PRESENTS TODAY FOR HEP C, Pt no show, Patient presents today for FOLLOW UP on Hep C, Pt presents today for a follow up for Hep C., cancelling OV, follow up, patient is sick rescheduled appt, recall, Put on one year OV follow up, HEP C Insurance Providers [facility] Health Member Patient Patient Patient Patient Patient Subscriber Subscriber Subscriber Group Insurance Plan Plan Plan Plan ID Relationship Address Phone Name Date of ID Name Date of No Type Insurance Insurance Insurance Coverage to Subscriber Address Phone Name Dates MEDICAID [phone] MEDICAID self NIGEL [id number] [place] [id number] [place] [address] [place] [address] [employer] [phone] [employer] self [place] [address] [id number] [facility] [id number] Health [place] Plan [facility] Plan [id number]
[2022-01-14 23:59] VITALS: BP 113/63; PULSE 90; RESP 16; TEMP 37.2; O2SAT 99
[2022-01-15] VITALS (9 sets, daily range): BP systolic 108–145; BP diastolic 52–71; PULSE 64–94; RESP 14–18; TEMP 36.1–36.9; O2SAT 95–99
--- NOTE | 2022-01-15 00:53 | ED.GENADULT ---
HPI - General Adult General Chief complaint: General Medical <Gopal Elliott MD - Last Filed: 01/15/22 01:51> Stated complaint: end stage liver disease, back pain, multiple comp. <Gopal Elliott MD - Last Filed: 01/15/22 01:51> Time Seen by Provider: 01/14/22 23:41 <Gopal Elliott MD - Last Filed: 01/15/22 01:51> Source: patient <Gopal Elliott MD - Last Filed: 01/15/22 01:51> Mode of arrival: EMS <Gopal Elliott MD - Last Filed: 01/15/22 01:51> Limitations: no limitations <Gopal Elliott MD - Last Filed: 01/15/22 01:51> History of Present Illness HPI narrative: 36-year-old male with a past medical history of hepatic failure, liver cirrhosis, ascites presents to the emergency department today complaining of left lower back pain, and earache, and vague weakness. The patient cannot elaborate on how long this has been going on. States he was in a intermediate several months ago, and was on hospice. <Gopal Elliott MD - Last Filed: 01/15/22 01:51> Onset (ago): day(s) (1) <Gopal Elliott MD - Last Filed: 01/15/22 01:51> Location: back (left sacroiliac joint area) <Gopal Elliott MD - Last Filed: 01/15/22 01:51> Quality: burning <Gopal Elliott MD - Last Filed: 01/15/22 01:51> Pain Consistency: constant <Gopal Elliott MD - Last Filed: 01/15/22 01:51> Relieving factors: immobilization <Gopal Elliott MD - Last Filed: 01/15/22 01:51> Exacerbating factors: movement <Gopal Elliott MD - Last Filed: 01/15/22 01:51> Associated symptoms: denies other symptoms <Gopal Elliott MD - Last Filed: 01/15/22 01:51> Treatments prior to arrival: none <Gopal Elliott MD - Last Filed: 01/15/22 01:51> Related Data Home medications: Home Medications Medication Instructions Recorded Confirmed No Known Home Meds 01/15/22 01/15/22 <Gopal Elliott MD - Last Filed: 01/15/22 01:51> Allergies/adverse reactions: Allergies Allergy/AdvReac Type Severity Reaction Status Date / Time No Known Allergies Allergy Verified 10/22/21 13:13 [No Known Allergies*] <Gopal Elliott MD - Last Filed: 01/15/22 01:51> Review of Systems Review of Systems: Yes all other systems are reviewed and are negative <Gopal Elliott MD - Last Filed: 01/15/22 01:51> Constitutional: Constitutional: Denies chills, Denies fever(s) and Denies headache(s) <Gopal Elliott MD - Last Filed: 01/15/22 01:51> Eyes: Eyes: Reports no additional eye complaints <Gopal Elliott MD - Last Filed: 01/15/22 01:51> ENT: Denies dizziness, Denies headache(s), Denies nasal congestion and Denies neck pain <Gopal Elliott MD - Last Filed: 01/15/22 01:51> Cardiovascular: Cardiovascular: Denies chest pain, Denies Epigastric Pain and Denies rapid heart rate <Gopal Elliott MD - Last Filed: 01/15/22 01:51> Respiratory: Respiratory: Denies cough, Denies pain with cough and Denies wheezing <Gopal Elliott MD - Last Filed: 01/15/22 01:51> Gastrointestinal: Gastrointestinal: Reports no additional gastrointestinal complaints <Gopal Elliott MD - Last Filed: 01/15/22 01:51> Musculoskeletal: Musculoskeletal: Reports back pain, Denies joint swelling, Denies muscle cramps and Denies neck pain <Gopal Elliott MD - Last Filed: 01/15/22 01:51> Neurologic: Denies Abnormal speech present, Denies confusion, Denies dizziness, Denies headache(s), Denies focal weakness and Denies seizure-like activity <Gopal Elliott MD - Last Filed: 01/15/22 01:51> Psychiatric: Psychiatric: Denies confusion <Gopal Elliott MD - Last Filed: 01/15/22 01:51> Allergic/Immunologic: Allergic/Immunologic: Denies wheezing <Gopal Elliott MD - Last Filed: 01/15/22 01:51> PMFSH Past Medical History Medical History: Medical History Ascites Ascites Cirrhosis Hematoma and contusion Hepatitis C IV drug user MRSA bacteremia Septic pulmonary embolism <Gopal Elliott MD - Last Filed: 01/15/22 01:51> Surgical History: Surgical History No pertinent past surgical history <Gopal Elliott MD - Last Filed: 01/15/22 01:51> Social History Social History: Social History Household Members: Other Housing: Homeless Do you presently have visiting nurse or other home services: No Alcohol intake: current Alcohol intake frequency: 0-2 drinks per day Alcohol type: beer Patient Tobacco Use Status: Never used Tobacco Tobacco use type: Cigarette Smoked in Last 30 Days: Yes e-Cigarette/Vaping Use: Never Used Second Hand Smoke Exposure: No Use of substances other than those prescribed or required for medical reasons: Yes Substance Use Type: Crack/Cocaine and Heroin Substance Use Frequency: Daily Last Used Substance: Hours (ago) Any prior treatment program specific to substance use: Yes Advance Directives: Yes Advance Directives on File: Yes Advance Directives Date on File: 01/15/22 service: No Current occupational status: unemployed Cognitive needs: No Hearing needs: No Vision needs: No <Gopal Elliott MD - Last Filed: 01/15/22 01:51> Physical Exam ED Vital Signs: Vital Signs - 24 hr 01/17/22 10:19 01/17/22 12:24 01/18/22 00:18 Temperature 97.0 F 98.0 F 98.3 F Pulse Rate 56 58 71 Respiratory Rate 16 16 12 Blood Pressure 127/81 139/87 131/85 Pulse Oximetry 97 98 97 Oxygen Delivery Method Room Air Room Air Room Air BMI result Body Mass Index 19.2 <Gopal Elliott MD - Last Filed: 01/15/22 01:51> Vital Signs - 24 hr 01/17/22 10:19 01/17/22 12:24 01/18/22 00:18 Temperature 97.0 F 98.0 F 98.3 F Pulse Rate 56 58 71 Respiratory Rate 16 16 12 Blood Pressure 127/81 139/87 131/85 Pulse Oximetry 97 98 97 Oxygen Delivery Method Room Air Room Air Room Air BMI result Body Mass Index 19.2 <Susan Perkins MD - Last Filed: 01/15/22 03:06> Vital Signs - 24 hr 01/17/22 10:19 01/17/22 12:24 01/18/22 00:18 Temperature 97.0 F 98.0 F 98.3 F Pulse Rate 56 58 71 Respiratory Rate 16 16 12 Blood Pressure 127/81 139/87 131/85 Pulse Oximetry 97 98 97 Oxygen Delivery Method Room Air Room Air Room Air BMI result Body Mass Index 19.2 <AICHA Allred - Last Filed: 01/17/22 09:49> Stable and normal <Gopal Elliott MD - Last Filed: 01/15/22 01:51> Const General: cooperative; No healthy appearing, confusion or well groomed <Gopal Elliott MD - Last Filed: 01/15/22 01:51> Nutritional Appearance: underweight <Gopal Elliott MD - Last Filed: 01/15/22 01:51> Orientation/consciousness: patient oriented x3 and No confusion <Gopal Elliott MD - Last Filed: 01/15/22 01:51> Limitations: No altered mental status <Gopal Elloitt MD - Last Filed: 01/15/22 01:51> HENIN Head: Yes normal to inspection, Yes normocephalic and Yes atraumatic <Gopal Elliott MD - Last Filed: 01/15/22 01:51> Ears: hearing grossly normal bilaterally and external ears normal <Gopal Elliott MD - Last Filed: 01/15/22 01:51> General nose exam: Normal external nose present <Gopal Elliott MD - Last Filed: 01/15/22 01:51> Face and sinus: Yes normal facial exam <Gopal Elliott MD - Last Filed: 01/15/22 01:51> Mouth: Normal oral and palatal mucosa present <Gopal Elliott MD - Last Filed: 01/15/22 01:51> Throat: Yes posterior oropharynx normal <Gopal Elliott MD - Last Filed: 01/15/22 01:51> Eyes Conjunctivae: conjunctivae normal <Gopal Elliott MD - Last Filed: 01/15/22 01:51> Sclerae: sclerae normal <Gopal Elliott MD - Last Filed: 01/15/22 01:51> Corneas: corneas normal <Gopal Elliott MD - Last Filed: 01/15/22 01:51> Pupils: Equal, round and reactive pupils present <Gopal Elliott MD - Last Filed: 01/15/22 01:51> EOM: EOMs intact bilaterally <Gopal Elliott MD - Last Filed: 01/15/22 01:51> Neck Neck: Yes normal visual inspection and Yes full ROM <Gopal Elliott MD - Last Filed: 01/15/22 01:51> Chest Chest palpation & inspection: normal inspection of the chest <Gopal Elliott MD - Last Filed: 01/15/22 01:51> Resp Effort & Inspection: normal respiratory effort, not able to speak in complete sentences and no cough <Gopal Elliott MD - Last Filed: 01/15/22 01:51> Cardio Rate: regular rate <Gopal Elliott MD - Last Filed: 01/15/22 01:51> Rhythm: regular rhythm <Gopal Elliott MD - Last Filed: 01/15/22 01:51> GI Inspection: Yes normal to inspection <Gopal Elliott MD - Last Filed: 01/15/22 01:51> Palpation (GI): nontender <Gopal Elliott MD - Last Filed: 01/15/22 01:51> Back/Spine/Pelvis Cervical Spine: normal cervical lordosis and cervical ROM normal <Gopal Elliott MD - Last Filed: 01/15/22 01:51> Sacroiliac joints: on the left tender to palpation <Gopal Elliott MD - Last Filed: 01/15/22 01:51> Skin General skin exam: no erythema, no jaundice and no mottling <Gopal Elliott MD - Last Filed: 01/15/22 01:51> Neuro General: patient oriented x3, no focal motor deficits, CN's II-XI intact bilaterally and No confusion <Gopal Elliott MD - Last Filed: 01/15/22 01:51> Cranial nerves: Yes Equal, round and reactive pupils present <Gopal Elliott MD - Last Filed: 01/15/22 01:51> Speech: No Abnormal speech present <Gopal Elliott MD - Last Filed: 01/15/22 01:51> Extrem General: Yes normal to inspection and Yes full ROM <Gopal Elliott MD - Last Filed: 01/15/22 01:51> Psych Appearance: poorly kempt and disheveled <Gopal Elliott MD - Last Filed: 01/15/22 01:51> Mental Status: mental status grossly normal <Gopal Elliott MD - Last Filed: 01/15/22 01:51> Course Reevaluation(s) Reevaluation #1: Physician observation started at 3:00 am . Patient placed in physician observation because the patient needed to see case management for evaluation and the need for placement patient's vital sign were stable, patient is alert and oriented , neuro exam unchanged, unremarkable rest of physical exam. <Susan Perkins MD - Last Filed: 01/15/22 03:06> Time: 03:04 <Susan Perkins MD - Last Filed: 01/15/22 03:06> Reevaluation #2: physician observation continued. patient is pending PT evaluation, care team evaluation and case management consultation. He is c/o chronic pain back. ok to start PRN tylenol (as long as <2,000 mg per day given his liver disease), PRN motrin (platelets 130K), and lidoderm patch. no evidence of ETOH withdrawal at this time. Will add CIWA scores Q4. Will continue to monitor. <AICHA Allred - Last Filed: 01/17/22 09:49> Medications Administered Discontinued Medications Generic Name Dose Route Start Last Admin Trade Name Freq PRN Reason Stop Dose Admin Buprenorphine/Naloxone 1 film 01/16/22 15:37 01/16/22 15:44 Buprenorphine/Naloxone 4/1 Mg Film SUBLINGUAL 01/16/22 15:38 1 film ONCE ONE Administration Buprenorphine/Naloxone 1 film 01/17/22 10:06 01/17/22 10:18 Buprenorphine/Naloxone 4/1 Mg Film SUBLINGUAL 01/17/22 10:07 1 film ONCE ONE Administration Ketorolac Tromethamine 15 mg 01/15/22 00:43 01/15/22 02:14 Ketorolac Tromethamine 15 Mg/Ml Vial IVPUSH 01/15/22 00:44 15 mg ONCE ONE Administration Ketorolac Tromethamine 15 mg 01/15/22 14:28 01/15/22 14:47 Ketorolac Tromethamine 15 Mg/Ml Vial IVPUSH 01/15/22 14:29 15 mg ONCE ONE Administration Lidocaine 1 patch 01/16/22 11:28 01/16/22 12:02 Lidocaine 4 % Patch Adh..Patch TRANSDERMA 01/16/22 11:29 Not Given ONCE ONE Protocol Lorazepam 1 mg 01/16/22 14:16 01/16/22 15:45 Lorazepam 1 Mg Tablet PO 01/16/22 14:17 Not Given ONCE ONE Naproxen 500 mg 01/15/22 23:01 01/15/22 23:31 Naproxen 500 Mg Tablet PO 01/15/22 23:02 500 mg ONCE ONE Administration Toradol injectable <Gopal Elliott MD - Last Filed: 01/15/22 01:51> Medications Administered Discontinued Medications Generic Name Dose Route Start Last Admin Trade Name Freq PRN Reason Stop Dose Admin Buprenorphine/Naloxone 1 film 01/16/22 15:37 01/16/22 15:44 Buprenorphine/Naloxone 4/1 Mg Film SUBLINGUAL 01/16/22 15:38 1 film ONCE ONE Administration Buprenorphine/Naloxone 1 film 01/17/22 10:06 01/17/22 10:18 Buprenorphine/Naloxone 4/1 Mg Film SUBLINGUAL 01/17/22 10:07 1 film ONCE ONE Administration Ketorolac Tromethamine 15 mg 01/15/22 00:43 01/15/22 02:14 Ketorolac Tromethamine 15 Mg/Ml Vial IVPUSH 01/15/22 00:44 15 mg ONCE ONE Administration Ketorolac Tromethamine 15 mg 01/15/22 14:28 01/15/22 14:47 Ketorolac Tromethamine 15 Mg/Ml Vial IVPUSH 01/15/22 14:29 15 mg ONCE ONE Administration Lidocaine 1 patch 01/16/22 11:28 01/16/22 12:02 Lidocaine 4 % Patch Adh..Patch TRANSDERMA 01/16/22 11:29 Not Given ONCE ONE Protocol Lorazepam 1 mg 01/16/22 14:16 01/16/22 15:45 Lorazepam 1 Mg Tablet PO 01/16/22 14:17 Not Given ONCE ONE Naproxen 500 mg 01/15/22 23:01 01/15/22 23:31 Naproxen 500 Mg Tablet PO 01/15/22 23:02 500 mg ONCE ONE Administration <Susan Perkins MD - Last Filed: 01/15/22 03:06> Medications Administered Discontinued Medications Generic Name Dose Route Start Last Admin Trade Name Freq PRN Reason Stop Dose Admin Buprenorphine/Naloxone 1 film 01/16/22 15:37 01/16/22 15:44 Buprenorphine/Naloxone 4/1 Mg Film SUBLINGUAL 01/16/22 15:38 1 film ONCE ONE Administration Buprenorphine/Naloxone 1 film 01/17/22 10:06 01/17/22 10:18 Buprenorphine/Naloxone 4/1 Mg Film SUBLINGUAL 01/17/22 10:07 1 film ONCE ONE Administration Ketorolac Tromethamine 15 mg 01/15/22 00:43 01/15/22 02:14 Ketorolac Tromethamine 15 Mg/Ml Vial IVPUSH 01/15/22 00:44 15 mg ONCE ONE Administration Ketorolac Tromethamine 15 mg 01/15/22 14:28 01/15/22 14:47 Ketorolac Tromethamine 15 Mg/Ml Vial IVPUSH 01/15/22 14:29 15 mg ONCE ONE Administration Lidocaine 1 patch 01/16/22 11:28 01/16/22 12:02 Lidocaine 4 % Patch Adh..Patch TRANSDERMA 01/16/22 11:29 Not Given ONCE ONE Protocol Lorazepam 1 mg 01/16/22 14:16 01/16/22 15:45 Lorazepam 1 Mg Tablet PO 01/16/22 14:17 Not Given ONCE ONE Naproxen 500 mg 01/15/22 23:01 01/15/22 23:31 Naproxen 500 Mg Tablet PO 01/15/22 23:02 500 mg ONCE ONE Administration <AICHA Allred - Last Filed: 01/17/22 09:49> Medical Decision Making MDM Narrative Medical decision making narrative: 36-year-old male with a past medical history of hepatic failure presents to the emergency department with left sacroiliac joint pain, ear pain, other vague complaints. Additionally states he is homeless. Patient awaiting results of laboratory studies, did receive IM Toradol for his left sacroiliitis. Depending on lab results, may need case management in the morning for help with placement. <Gopal Elliott MD - Last Filed: 01/15/22 01:51> Lab Data Lab results reviewed: Yes I reviewed the patient's lab results. <Susan Perkins MD - Last Filed: 01/15/22 03:06> Result diagrams: : 01/15/22 02:00 01/15/22 01:26 <Gopal Elliott MD - Last Filed: 01/15/22 01:51> Labs: Lab Results 01/15/22 01/15/22 01/15/22 Range/Units 01:26 02:00 03:11 WBC 8.0 (4.8-10.8) X10*3/uL RBC 4.81 (4.60-5.80) X10*6/uL Hgb 14.2 (14.0-18.0) g/dl Hct 42.5 (42.0-52.0) % MCV 88.4 (80.0-98.0) fL MCH 29.5 (27.0-33.0) pg MCHC 33.4 (31.0-36.0) g/dl RDW 14.4 (11.0-16.0) % Plt Count 130 L (160-400) X10*3/uL MPV 9.9 (9.4-12.4) fL Immature Gran % (Auto) 0.3 (0.0-0.4) % Neut % (Auto) 69.9 (45-73) % Lymph % (Auto) 21.5 (20-40) % [place] % (Auto) 6.5 (2-11) % Eos % (Auto) 1.5 (0-4) % Baso % (Auto) 0.3 (0-2) % Lymph # (Auto) 1.7 (1.2-4.9) X10*3/uL [place] # (Auto) 0.5 (0.1-1.2) X10*3/uL Eos # (Auto) 0.1 (0.0-0.4) X10*3/uL Baso # (Auto) 0.0 (0.0-0.2) X10*3/uL Abs Immat Gran (auto) 0.02 (0.00-0.03) X10*3/uL Absolute Neuts (auto) 5.6 (2.0-8.3) x10*3/uL Absolute Nucleated RBC 0.000 (0.0-0.012) X10*3/uL Nucleated RBC % (auto) 0.0 (0.0-0.2) /100WBC Smear Tech's Comments VERIFIED Sodium 137 (135-145) mmol/L Potassium 4.7 (3.3-5.1) mmol/L Chloride 103 (96-108) mmol/L Carbon Dioxide 25 (22-29) mmol/L Anion Gap 14 (12-20) BUN 11 (9-16) mg/dL Creatinine 0.75 (0.5-1.4) mg/dL Estim Creat Clear Calc 111.3 Estimated GFR > 60 Random Glucose 133 H (60-115) mg/dL Calcium 8.9 (8.4-10.2) mg/dL Total Bilirubin 0.7 (0.0-1.0) mg/dL Direct Bilirubin 0.2 (0.0-0.5) mg/dL AST 61 H (5-37) U/L ALT 49 H (0-40) U/L Alkaline Phosphatase 66 (39-117) U/L Total Protein 7.1 (6.5-8.0) g/dL Albumin 3.5 (3.5-5.0) g/dL COVID-19 (TAMRA) Negative (Negative) COVID-19 Clin Com See Note <Gopal Elliott MD - Last Filed: 01/15/22 01:51> Lab Results 01/15/22 01/15/22 01/15/22 Range/Units 01:26 02:00 03:11 WBC 8.0 (4.8-10.8) X10*3/uL RBC 4.81 (4.60-5.80) X10*6/uL Hgb 14.2 (14.0-18.0) g/dl Hct 42.5 (42.0-52.0) % MCV 88.4 (80.0-98.0) fL MCH 29.5 (27.0-33.0) pg MCHC 33.4 (31.0-36.0) g/dl RDW 14.4 (11.0-16.0) % Plt Count 130 L (160-400) X10*3/uL MPV 9.9 (9.4-12.4) fL Immature Gran % (Auto) 0.3 (0.0-0.4) % Neut % (Auto) 69.9 (45-73) % Lymph % (Auto) 21.5 (20-40) % [place] % (Auto) 6.5 (2-11) % Eos % (Auto) 1.5 (0-4) % Baso % (Auto) 0.3 (0-2) % Lymph # (Auto) 1.7 (1.2-4.9) X10*3/uL [place] # (Auto) 0.5 (0.1-1.2) X10*3/uL Eos # (Auto) 0.1 (0.0-0.4) X10*3/uL Baso # (Auto) 0.0 (0.0-0.2) X10*3/uL Abs Immat Gran (auto) 0.02 (0.00-0.03) X10*3/uL Absolute Neuts (auto) 5.6 (2.0-8.3) x10*3/uL Absolute Nucleated RBC 0.000 (0.0-0.012) X10*3/uL Nucleated RBC % (auto) 0.0 (0.0-0.2) /100WBC Smear Tech's Comments VERIFIED Sodium 137 (135-145) mmol/L Potassium 4.7 (3.3-5.1) mmol/L Chloride 103 (96-108) mmol/L Carbon Dioxide 25 (22-29) mmol/L Anion Gap 14 (12-20) BUN 11 (9-16) mg/dL Creatinine 0.75 (0.5-1.4) mg/dL Estim Creat Clear Calc 111.3 Estimated GFR > 60 Random Glucose 133 H (60-115) mg/dL Calcium 8.9 (8.4-10.2) mg/dL Total Bilirubin 0.7 (0.0-1.0) mg/dL Direct Bilirubin 0.2 (0.0-0.5) mg/dL AST 61 H (5-37) U/L ALT 49 H (0-40) U/L Alkaline Phosphatase 66 (39-117) U/L Total Protein 7.1 (6.5-8.0) g/dL Albumin 3.5 (3.5-5.0) g/dL COVID-19 (TAMRA) Negative (Negative) COVID-19 Clin Com See Note <Susan Perkins MD - Last Filed: 01/15/22 03:06> Lab Results 01/15/22 01/15/22 01/15/22 Range/Units 01:26 02:00 03:11 WBC 8.0 (4.8-10.8) X10*3/uL RBC 4.81 (4.60-5.80) X10*6/uL Hgb 14.2 (14.0-18.0) g/dl Hct 42.5 (42.0-52.0) % MCV 88.4 (80.0-98.0) fL MCH 29.5 (27.0-33.0) pg MCHC 33.4 (31.0-36.0) g/dl RDW 14.4 (11.0-16.0) % Plt Count 130 L (160-400) X10*3/uL MPV 9.9 (9.4-12.4) fL Immature Gran % (Auto) 0.3 (0.0-0.4) % Neut % (Auto) 69.9 (45-73) % Lymph % (Auto) 21.5 (20-40) % [place] % (Auto) 6.5 (2-11) % Eos % (Auto) 1.5 (0-4) % Baso % (Auto) 0.3 (0-2) % Lymph # (Auto) 1.7 (1.2-4.9) X10*3/uL [place] # (Auto) 0.5 (0.1-1.2) X10*3/uL Eos # (Auto) 0.1 (0.0-0.4) X10*3/uL Baso # (Auto) 0.0 (0.0-0.2) X10*3/uL Abs Immat Gran (auto) 0.02 (0.00-0.03) X10*3/uL Absolute Neuts (auto) 5.6 (2.0-8.3) x10*3/uL Absolute Nucleated RBC 0.000 (0.0-0.012) X10*3/uL Nucleated RBC % (auto) 0.0 (0.0-0.2) /100WBC Smear Tech's Comments VERIFIED Sodium 137 (135-145) mmol/L Potassium 4.7 (3.3-5.1) mmol/L Chloride 103 (96-108) mmol/L Carbon Dioxide 25 (22-29) mmol/L Anion Gap 14 (12-20) BUN 11 (9-16) mg/dL Creatinine 0.75 (0.5-1.4) mg/dL Estim Creat Clear Calc 111.3 Estimated GFR > 60 Random Glucose 133 H (60-115) mg/dL Calcium 8.9 (8.4-10.2) mg/dL Total Bilirubin 0.7 (0.0-1.0) mg/dL Direct Bilirubin 0.2 (0.0-0.5) mg/dL AST 61 H (5-37) U/L ALT 49 H (0-40) U/L Alkaline Phosphatase 66 (39-117) U/L Total Protein 7.1 (6.5-8.0) g/dL Albumin 3.5 (3.5-5.0) g/dL COVID-19 (TAMRA) Negative (Negative) COVID-19 Clin Com See Note <AICHA Allred - Last Filed: 01/17/22 09:49> Discharge Plan Discharge Clinical Impression: Alcohol abuse <Gopal Elliott MD - Last Filed: 01/15/22 01:51> Patient Disposition: Still a Patient <Gopal Elliott MD - Last Filed: 01/15/22 01:51> Prescriptions: No Action No Known Home Meds <Gopal Elliott MD - Last Filed: 01/15/22 01:51>
[2022-01-15 01:49] LABS: Alanine Aminotransferase 49 U/L (0-40); Albumin Level 3.5 g/dL (3.5-5.0); Alkaline Phosphatase 66 U/L (39-117); Anion Gap 14 (12-20); Aspartate Amino Transferase 61 U/L (5-37); Bilirubin Direct 0.2 mg/dL (0.0-0.5); Bilirubin Total 0.7 mg/dL (0.0-1.0); Blood Urea Nitrogen 11 mg/dL (9-16); Calcium 8.9 mg/dL (8.4-10.2); Carbon Dioxide 25 mmol/L (22-29); Chloride 103 mmol/L (96-108); Creatinine Clr Calc Pharmacy 111.3; Estimated Glomerular Filt Rate > 60; Glucose Random 133 mg/dL (60-115); Potassium 4.7 mmol/L (3.3-5.1); Sodium 137 mmol/L (135-145); Total Protein 7.1 g/dL (6.5-8.0)
[2022-01-15 02:04] LABS: Basophils Percent Auto 0.3 % (0-2); Eosinophils Absolute Auto 0.1 X10*3/uL (0.0-0.4); Eosinophils Percent Auto 1.5 % (0-4); Hematocrit 42.5 % (42.0-52.0); Hemoglobin 14.2 g/dl (14.0-18.0); Imm Gran Abs Auto 0.02 X10*3/uL (0.00-0.03); Imm Gran Pct Auto 0.3 % (0.0-0.4); Lymphocytes Absolute Auto 1.7 X10*3/uL (1.2-4.9); Lymphocytes Percent Auto 21.5 % (20-40); MANUAL DIFF FLAG SCAN; Mean Corpuscular HGB Conc 33.4 g/dl (31.0-36.0); Mean Corpuscular Hemoglobin 29.5 pg (27.0-33.0); Mean Corpuscular Volume 88.4 fL (80.0-98.0); Mean Platelet Volume 9.9 fL (9.4-12.4); Monocytes Absolute Auto 0.5 X10*3/uL (0.1-1.2); Monocytes Percent Auto 6.5 % (2-11); Neutrophils Absolute Auto 5.6 x10*3/uL (2.0-8.3); Neutrophils Percent Auto 69.9 % (45-73); PLT CLUMP 1; Red Blood Count 4.81 X10*6/uL (4.60-5.80); Red Cell Distribution Width 14.4 % (11.0-16.0); SCAN SMEAR FLAG 1
[2022-01-15] MEDS: Ketorolac Tromethamine 15 MG/ML VIAL IVPUSH ×2 (02:14→14:47)
[2022-01-15 02:22] LABS: Platelet Count 130 X10*3/uL (160-400)
[2022-01-15 02:23] LABS: SLIDE REVIEW VERIFIED
[2022-01-15 03:31] LABS: COVID-19 Test Negative (Negative); IDNOW Serial# 16C4AD1C
--- NOTE | 2022-01-15 10:24 | PHA.MEDREC ---
Pharmacy Consult ? Medication Reconciliation Pharmacy has completed the medication reconciliation. Patient reported he does not take any medications. Patient had a history of methadone but reports he does not go to a clinic anymore. Adalgisa Arguello, PharmD
--- NOTE | 2022-01-15 10:28 | PC.NURSE ---
ate breakfast, skin wpd, alert, reports drug use and interwested in talking w care team
--- NOTE | 2022-01-15 14:27 | MHC.CM.ED ---
Received case management consult overnight. Patient came to ER due to back pain. Work up essentially negative. Patient requesting STR placement. PT rec STR. Patient is well known to case management. Patient was at [facility] in August and left AMA. Patient has a substance abuse history and will be difficult to place. Referral broadcasted in [facility] to all facilities contracted with [facility] within 50 miles. Due to substance abuse, [facility] PASRR Level 2 is needed. Already obtained by T/W. Continue to monitor for d/c needs.
--- NOTE | 2022-01-15 20:30 | PC.NURSE ---
pt moved to hallway, ate 100% of dinner and pm snack, sleeping, RR even and unlabored.
[2022-01-15] MEDS: NaPROXEN 500 MG TABLET PO (23:31)
--- NOTE | 2022-01-15 23:34 | PC.NURSE ---
pt a&ox3, medicated for 8/10 lower back pain, pt given sandwich, juice and coffee, pt pending STR placement.
--- NOTE | 2022-01-16 01:58 | PC.NURSE ---
pt transferred into hospital bed, sleeping, RR even and unlabored.
[2022-01-16 07:17] VITALS: BP 129/83; PULSE 62; RESP 12; TEMP 36.7; O2SAT 98
--- NOTE | 2022-01-16 09:27 | PC.NURSE ---
patient currently sleeping, ate 100% of breakfast, vitals continue to be stable, will continue to monitor.
[2022-01-16 11:44] VITALS: BP 134/86; PULSE 68; RESP 18; TEMP 36.7; O2SAT 98
--- NOTE | 2022-01-16 12:16 | PC.NURSE ---
pt had requested pain medications, provider notified, this nurse went to medicate patient and he refused meds, pt states that he takes high doses of narcotics and this medication wont work, provider notified and she looked up pts history last refill was in july, pt also c/o withdrawals stated that he has body aches and diarrhea, ciwa score was 2- provider notified. no new orders given at this time, pts vss, will continue to monitor
[2022-01-16] MEDS: Buprenorphine/Naloxone 4/1 mg FILM 1 FILM SUBLINGUAL (15:44)
--- NOTE | 2022-01-16 16:12 | MHC.CM.ED ---
No bed offers yet. Met with patient. Agreeable to expanding search in [facility]. Referrals made within 200 miles in [facility] that accept [facility]. CM to follow for d/c planning.
[2022-01-16 19:41] VITALS: BP 127/70; PULSE 58; RESP 17; TEMP 37.3; O2SAT 98
--- NOTE | 2022-01-16 19:42 | PC.NURSE ---
Care of patient assumed at 1900. He is found resting in stretcher on his right side with eyes closed. He just finished eating a bucket of [facility] chicken a friend brought in. He is alert, oriented x3. He states he feels crappy. Vitals stable. Call buchanan within reach. Patient states he doesn't need anything and just wants to be left alone to sleep.
[2022-01-16 23:47] VITALS: BP 136/80; PULSE 55; RESP 18; TEMP 36.8; O2SAT 99
[2022-01-17 05:12] VITALS: BP 128/89; PULSE 57; RESP 16; TEMP 36.5; O2SAT 98
[2022-01-17 08:10] VITALS: BP 129/86; PULSE 58; RESP 16; TEMP 36.6; O2SAT 97
[2022-01-17] MEDS: Buprenorphine/Naloxone 4/1 mg FILM 1 FILM SUBLINGUAL (10:18)
[2022-01-17 10:19] VITALS: BP 127/81; PULSE 56; RESP 16; TEMP 36.1; O2SAT 97
--- NOTE | 2022-01-17 10:27 | PC.NURSE ---
patient a/ox4 . josiahrla . heart rate regular at 58 beats per minute . lungs clear throughout . skin pink warm and dry . abdomen soft . no tender . positive bowel sounds in all four quadrants . patient had one episode of vomiting reports he feels its r/t him detoxing from heroin . Obtained order for Suboxone from provider , preformed COWS (score 5 )and CIWAS (score 8 ) as ordered . Medicated patient as ordered . patient waiting on placement from case management for a facility for physical therapy . patient aware of plan of care .
[2022-01-17 12:24] VITALS: BP 139/87; PULSE 58; RESP 16; TEMP 36.7; O2SAT 98
[2022-01-18 00:18] VITALS: BP 131/85; PULSE 71; RESP 12; TEMP 36.8; O2SAT 97
--- NOTE | 2022-01-18 10:48 | PC.NURSE ---
pt refused AM vitals
--- NOTE | 2022-01-19 07:49 | MHC.CM.ED ---
Patient left ER AMA on 01/18.
== END 2022-01-18 10:53 | disposition left against medical advice (07) ==
PROVIDERS: Emergency Medicine; Emergency Provider Emergency Medicine; PCP Internal Medicine
DX: F10.129 Alcohol abuse with intoxication, unspecified (principal); Y90.8 Blood alcohol level of 240 mg/100 ml or more; F11.13 Opioid abuse with withdrawal; K72.10 Chronic hepatic failure without coma; M54.50 Low back pain, unspecified; R06.02 Shortness of breath; R26.81 Unsteadiness on feet; H92.03 Otalgia, bilateral; F14.10 Cocaine abuse, uncomplicated; Z20.822 Contact with and (suspected) exposure to COVID-19; Z79.899 Other long term (current) drug therapy
CPT/HCPCS: 36415; 80048; 80076; 85025; 87635; 96374; 96376; 97162; 99285; J1885

== ENCOUNTER 2023-03-24 13:21 | Outpatient (AMB) | payer OTHER, SELFPAY ==
[2023-03-24 13:26] VITALS: BP 110/62; PULSE 76; O2SAT 93; BMI 21.1
--- NOTE | 2023-03-24 13:26 | A.OFFPC_ITS ---
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 Accompanied by: Self / Same As Patient Allergies No Known Allergies [No Known Allergies*] Allergy (Verified 03/24/23 13:26) Medication List - Last Reconciled 03/25/23 by Alberto Cole MD apixaban (Eliquis) 5 mg PO BID food supplemt, lactose-reduced (Ensure oral liquid) 1 ea PO BID levetiracetam 1,000 mg (2 x 500 mg) PO BID sulfamethoxazole-trimethoprim 800-160 mg (Bactrim DS) 1 tab PO TID sulfamethoxazole-trimethoprim 800-160 mg (Bactrim DS) 1 tab PO BID thiamine HCl (vitamin B1) 100 mg PO DAILY valacyclovir 1,000 mg PO BID Tobacco use date assessed: 03/24/23 Dental Screening Dental Screen Date: 03/24/23 Did you have a dental visit in the last 12 months?: No Did you have a dental problem in the last 6 months where you did not have access to dental care?: No Was dental information given to patient?: Patient has dentist HPI PE HPI Details alcoholism and IV substance abuse; has liver cirrhosis, brain and abdominal abscesses and septic pulmonary embolism; currently resides in a snf; continues to drink and substance abuse status not known [facility] Medical History Ascites Ascites Cirrhosis Hematoma and contusion Hepatitis C IV drug user MRSA bacteremia Septic pulmonary embolism Surgical History No pertinent past surgical history Social History Household Members: Other Housing: Homeless Do you presently have visiting nurse or other home services: No Alcohol intake: current Alcohol intake frequency: 0-2 drinks per day Alcohol type: beer Comment: refuses high fall risk measures Patient Tobacco Use Status: Never used Tobacco Tobacco use type: Cigarette e-Cigarette/Vaping Use: Never Used Second Hand Smoke Exposure: No Substance Use Type: Crack/Cocaine and Heroin Advance Directives Date on File: 01/15/22 service: No Current occupational status: unemployed Cognitive needs: No Hearing needs: No Vision needs: No Questionnaire PHQ-9 Over the last 2 weeks, how often have you been bothered by any of the following problems? 1. Little interest or pleasure in doing things: not at all 2. Feeling down, depressed, or hopeless: nearly every day 3. Trouble falling or staying asleep, or sleeping too much: nearly every day 4. Feeling tired or having little energy: nearly every day 5. Poor appetite or overeating: several days 6. Feeling bad about yourself - or that you are a failure or have let yourself or your family down: not at all 7. Trouble concentrating on things, such as reading the newspaper or watching television: not at all 8. Moving or speaking so slowly that other people could have noticed. Or the opposite - being so fidgety or restless that you have been moving around a lot more than usual: not at all 9. Thoughts that you would be better off or of hurting yourself in some way: not at all Total score: 10 Depression Screening Interpretation: Positive Depression Screening Done: Yes 33234 - PHQ-9 Billing: Yes (known problem) Source: Developed by Drs. Gopal Harp, Nahed Perez, Emanuel Kaufman and colleagues, with an educational soham from [employer]. Thrive Questionnaire Date Thrive assessed: 03/24/23 I am a: Patient What is your living situation today?: I have a steady place to live Within the past 12 months, did the food you bought not last and you didn't have the money to get more?: Never true Within the past 12 months, did you worry whether your food would run out before you got money to buy more?: Never true Do you have trouble paying for medicines?: No Do you have trouble getting transportation to medical appointments?: No Do you have trouble paying your heating and electricity bill?: No Do you have trouble taking care of your child, family member or friend?: No Do you have trouble with day-to-day activities such as bathing, preparing meals, shopping, managing finances, etc.?: No Are you currently unemployed and looking for a job?: No Are you interested in more education?: No Please select the resources that you would like help with: None AUDIT C Alcohol Use Questionnaire (AUDIT-C) 1. How often do you have a drink containing alcohol?: Never Total Score: 0 Score Reviewed/Action Taken: Yes PETE-7 AMB Questionnaire PETE-7 Date PETE - 7 assessed: 03/24/23 Feeling nervous, anxious, or on edge: 0 = Not at all Not being able to stop or control worryin = Not at all Worrying too much about different things: 0 = Not at all Trouble relaxin = Not at all Being so restless that it is hard to sit still: 0 = Not at all Becoming easily annoyed or irritable: 0 = Not at all Feeling afraid as if something awful might happen: 0 = Not at all Total PETE-7 score (0-4 normal; 5-9 mild; 10-14 moderate; 15-21 severe): 0 Source: Developed by Drs. Gopal Harp, Nahed Perez, Emanuel Kaufman and colleagues, with an educational soham from [employer]. PETE-7 Assessment Billing PETE-7 Assessment Tool: PETE-7 Assessment 07927 Review of Systems Const Denies chills, Denies fatigue, Denies headache(s) and Denies weight loss Eyes Denies change in vision, Denies diplopia and Denies eye pain ENT Denies vertigo, Denies dizziness, Denies headache(s) and Denies nasal discharge Card Denies chest pain, Denies rapid heart rate and Denies dyspnea on exertion Resp Denies chest congestion, Denies cough, Denies pain with cough and Denies dyspnea on exertion GI Denies abdominal pain, Denies hematochezia and Denies change in bowel habits Musc Denies myalgias, Denies arthralgias and Denies joint swelling Skin/Breast Denies lesions and Denies unusual bruising Neuro Denies vertigo, Denies dizziness, Denies headache(s) and Denies focal weakness Endo Denies fatigue Physical exam (Primary Care) Vital Signs: Last Vital Signs Pulse 76 03/24/23 13:26 BP 110/62 03/24/23 13:26 Pulse Ox 93 03/24/23 13:26 Oxygen Delivery Method Room Air 03/24/23 13:26 BMI result Body Mass Index 21.1 Tobacco/Smoking Status: Tobacco use Status Tobacco use date assessed 03/24/23 03/24/23 13:28 Patient Tobacco Use Status Never used Tobacco 03/24/23 13:28 Tobacco use type Cigarette 03/24/23 13:28 e-Cigarette/Vaping Use Never Used 03/24/23 13:28 PHQ-9: PHQ-9 Score PHQ-9: Total score 10 03/24/23 13:47 Depression Screening Interpretation: Positive Thrive Assessment: Date of Thrive Assessment Date Thrive assessed 03/24/23 03/24/23 13:28 Const General: cooperative, healthy appearing and no acute distress Orientation/consciousness: oriented to person, oriented to place and oriented to time HENMT Head: Yes normal to inspection, Yes normocephalic and Yes atraumatic Mouth: Normal oral and palatal mucosa present and tongue normal Throat: Yes posterior oropharynx normal and Yes uvula midline Eyes General: appearance normal, both eyes and all related structures Neck Neck: Yes normal visual inspection, Yes full ROM and Yes no lymphadenopathy Thyroid: Thyroid normal Carotids: normal carotid upstroke Chest Chest palpation & inspection: normal inspection of the chest Resp Effort & Inspection: normal respiratory effort and able to speak in complete sentences Auscultation: clear to auscultation bilaterally Cardio Jugular venous distension: no JVD Palpation: normal PMI Rate: regular rate Rhythm: regular rhythm Heart sounds: S1 normal heart sound present and S2 normal heart sound present GI Inspection: Yes normal to inspection Palpation (GI): Soft to palpation and No hepatosplenomegaly present Auscultation: normal bowel sounds General: Yes no CVA tenderness Back/Spine/Pelvis Back: no CVA tenderness Skin General skin exam: no rashes or lesions noted Neuro General: oriented to person, oriented to place and oriented to time Extrem General: Yes normal to inspection and Yes full ROM Assessment and Plan Assessment & Plan (1) Physical exam: Code(s): Z00.00 - Encounter for general adult medical examination without abnormal findings Plan: do labs (2) Brain abscess: Code(s): G06.0 - Intracranial abscess and granuloma Plan: follows with ID (3) Alcohol abuse: Code(s): F10.10 - Alcohol abuse, uncomplicated Plan: refuses care (4) Drug abuse, IV: Code(s): F19.10 - Other psychoactive substance abuse, uncomplicated Plan: unclear current status; was on methadone (5) Abscess of male pelvis: Code(s): K65.1 - Peritoneal abscess Plan: sees ID (6) Liver cirrhosis: Code(s): K74.60 - Unspecified cirrhosis of liver Plan: do labs (7) Septic pulmonary embolism: Code(s): I26.90 - Septic pulmonary embolism without acute cor pulmonale Plan: on rx Orders: Orders Complete Blood Count Auto Diff 03/24/23 D64.9 - Anemia, unspecified Lipid Panel 03/24/23 E78.5 - Hyperlipidemia, unspecified Thyroid Stimulating Hormone 03/24/23 E03.9 - Hypothyroidism, unspecified Comprehensive [place]. Panel Fast 03/24/23 N28.9 - Disorder of kidney and ureter, unspecified Medications: New sulfamethoxazole-trimethoprim 800-160 mg (Bactrim DS) 1 tab PO BID 60 tabs 0RF Coding Level of Care Code Est Pt Prev Care 18-39y(49159) Diagnoses Physical exam Z00.00 Brain abscess G06.0 Alcohol abuse F10.10 Drug abuse, IV F19.10 Abscess of male pelvis K65.1 Liver cirrhosis K74.60 Septic pulmonary embolism I26.90 Additional Codes PETE-7 Assessment Billing - PETE-7 Assessment Tool: PETE-7 Assessment 40806 ([id number])
== END 2023-03-24 14:08 | disposition home or self-care (01) ==
PROVIDERS: PCP Internal Medicine; Visit Provider Internal Medicine
DX: Z00.00 Encounter for general adult medical examination without abnormal findings (principal); G06.0 Intracranial abscess and granuloma; F10.10 Alcohol abuse, uncomplicated; F19.10 Other psychoactive substance abuse, uncomplicated; K65.1 Peritoneal abscess; K74.60 Unspecified cirrhosis of liver; I26.90 Septic pulmonary embolism without acute cor pulmonale
CPT/HCPCS: 99395

== ENCOUNTER 2023-03-30 07:35 | Outpatient (REF) | payer OTHER, SELFPAY ==
[2023-03-30 07:55] LABS: MANUAL DIFF FLAG NO
[2023-03-30 08:01] LABS: Basophils Percent Auto 0.3 % (0-2); Eosinophils Absolute Auto 0.2 X10*3/uL (0.0-0.4); Eosinophils Percent Auto 2.5 % (0-4); Hematocrit 43.1 % (42.0-52.0); Hemoglobin 14.9 g/dl (14.0-18.0); Imm Gran Abs Auto 0.03 X10*3/uL (0.00-0.03); Imm Gran Pct Auto 0.4 % (0.0-0.4); Lymphocytes Absolute Auto 3.3 X10*3/uL (1.2-4.9); Lymphocytes Percent Auto 44.3 % (20-40); Mean Corpuscular HGB Conc 34.6 g/dl (31.0-36.0); Mean Corpuscular Volume 89.8 fL (80.0-98.0); Mean Platelet Volume 9.1 fL (9.4-12.4); Monocytes Absolute Auto 0.6 X10*3/uL (0.1-1.2); Monocytes Percent Auto 7.3 % (2-11); Neutrophils Absolute Auto 3.4 x10*3/uL (2.0-8.3); Neutrophils Percent Auto 45.2 % (45-73); Platelet Count 144 X10*3/uL (160-400); Red Cell Distribution Width 14.8 % (11.0-16.0); White Blood Count 7.5 X10*3/uL (4.8-10.8)
[2023-03-30 08:21] LABS: Alanine Aminotransferase 81 U/L (0-40); Albumin Level 4.5 g/dL (3.5-5.0); Alkaline Phosphatase 74 U/L (39-117); Anion Gap 14 (12-20); Aspartate Amino Transferase 98 U/L (5-37); Bilirubin Total 0.5 mg/dL (0.0-1.0); Blood Urea Nitrogen 10 mg/dL (9-16); Calcium 9.4 mg/dL (8.4-10.2); Carbon Dioxide 25 mmol/L (22-29); Chloride 104 mmol/L (96-108); Cholesterol 167 mg/dL (<200); Estimated Glomerular Filt Rate > 60; Glucose Fasting 97 mg/dL (60-99); HDL Cholesterol 79 mg/dL (>40); LDL Cholesterol Calculated 76 mg/dL (<100); Sodium 139 mmol/L (135-145); Total Protein 8.6 g/dL (6.5-8.0); Triglycerides 64 mg/dL (<150)
--- NOTE | 2023-03-30 08:24 | ECG_ITS ---
Test Reason : ELEV METHADONE DOSE Blood Pressure : / mmHG Vent. Rate : 086 BPM Atrial Rate : 086 BPM P-R Int : 142 ms QRS Dur : 082 ms QT Int : 382 ms P-R-T Axes : 064 -44 073 degrees QTc Int : 457 ms Normal sinus rhythm Left axis deviation Nonspecific T wave abnormality Abnormal ECG No previous ECGs available Referred By: Jayesh Aparicio Electronically Signed By:Marcos Elliott
[2023-03-30 08:36] LABS: Thyroid Stimulating Hormone 1.33 uIU/mL (0.32-4.0)
== END 2023-03-30 07:36 | disposition home or self-care (01) ==
LOC: HO.LAB 07:35
PROVIDERS: Visit Provider Internal Medicine
DX: E03.9 Hypothyroidism, unspecified (principal); N28.9 Disorder of kidney and ureter, unspecified; E78.5 Hyperlipidemia, unspecified; D64.9 Anemia, unspecified; F11.20 Opioid dependence, uncomplicated; Z86.69 Personal history of other diseases of the nervous system and sense organs; Z79.899 Other long term (current) drug therapy
CPT/HCPCS: 36415; 80053; 80061; 84443; 85025; 93005

== ENCOUNTER → 2023-03-30 08:24 | Outpatient (BNV) | payer OTHER, SELFPAY | PROVIDERS: Visit Provider Internal Medicine Cardiovascular Disease | DX: R94.31 Abnormal electrocardiogram [ECG] [EKG] (principal) | CPT/HCPCS: 93010 ==

== ENCOUNTER 2023-07-19 13:04 | Outpatient (REF) | payer OTHER, SELFPAY ==
[2023-07-19 14:28] LABS: MANUAL DIFF FLAG NO
[2023-07-19 14:39] LABS: Basophils Percent Auto 0.3 % (0-2); Eosinophils Percent Auto 0.7 % (0-4); Hematocrit 42.9 % (42.0-52.0); Hemoglobin 14.8 g/dl (14.0-18.0); Imm Gran Abs Auto 0.01 X10*3/uL (0.00-0.03); Imm Gran Pct Auto 0.2 % (0.0-0.4); Lymphocytes Absolute Auto 1.3 X10*3/uL (1.2-4.9); Lymphocytes Percent Auto 22.4 % (20-40); Mean Corpuscular HGB Conc 34.5 g/dl (31.0-36.0); Mean Corpuscular Hemoglobin 32.7 pg (27.0-33.0); Mean Corpuscular Volume 94.7 fL (80.0-98.0); Mean Platelet Volume 9.3 fL (9.4-12.4); Monocytes Absolute Auto 0.6 X10*3/uL (0.1-1.2); Monocytes Percent Auto 9.6 % (2-11); Neutrophils Absolute Auto 3.8 x10*3/uL (2.0-8.3); Neutrophils Percent Auto 66.8 % (45-73); Platelet Count 139 X10*3/uL (160-400); Red Blood Count 4.53 X10*6/uL (4.60-5.80); Red Cell Distribution Width 12.7 % (11.0-16.0); White Blood Count 5.7 X10*3/uL (4.8-10.8)
[2023-07-19 14:55] LABS: INTERNATIONAL NORM RATIO 1.4 (0.9-1.1); Prothrombin Time 17.1 SEC (11.1-13.3)
[2023-07-19 15:13] LABS: Alanine Aminotransferase 87 U/L (0-40); Albumin Level 4.6 g/dL (3.5-5.0); Alkaline Phosphatase 56 U/L (39-117); Anion Gap 18 (12-20); Aspartate Amino Transferase 145 U/L (5-37); Bilirubin Total 1.2 mg/dL (0.0-1.0); Blood Urea Nitrogen 14 mg/dL (9-16); C Reactive Protein 0.34 mg/dL (< or = 0.50); Calcium 9.7 mg/dL (8.4-10.2); Carbon Dioxide 21 mmol/L (22-29); Chloride 102 mmol/L (96-108); Estimated Glomerular Filt Rate > 60; Glucose Random 90 mg/dL (60-115); Sodium 137 mmol/L (135-145); Total Protein 8.6 g/dL (6.5-8.0)
[2023-07-19 15:25] LABS: Ferritin 125 ng/mL (20-250); Vitamin D 25-OH Total 24.5 ng/mL (>30)
[2023-07-19 15:38] LABS: Folate 11.2 ng/mL (> or = 4.0); Vitamin B12 525 pg/mL (200-900)
[2023-07-20 15:23] LABS: HCV RNA PCR Qn 476000 IU/mL (NOT DETECTED); HCV RNA PCR Qn 5.68 Log IU/mL (NOT DETECTED)
[2023-07-22 05:59] LABS: Zinc 70 mcg/dL (60-130)
[2023-07-22 17:24] LABS: Alpha-Tocopherol 7.3 mg/L (5.7-19.9); Beta-Gamma Tocopherol <1.0 mg/L (<=4.3)
[2023-07-22 18:35] LABS: Vitamin A 23 mcg/dL (38-98)
[2023-07-23 14:28] LABS: Vitamin B1 77 nmol/L (8-30)
[2023-07-23 14:38] LABS: Vitamin K1 161 pg/mL (130-1500)
[2023-07-23 17:08] LABS: Vitamin C <0.1 mg/dL (0.2-2.1)
[2023-07-25 19:49] LABS: Nicotinamide <20 ng/mL; Vit B3 - Nicotinic Acid <20 ng/mL
[2023-07-25 20:12] LABS: Vitamin B5 (Pantothenic Acid) 59 ng/mL (<275)
[2023-07-28 18:14] LABS: HCV Genotype LiPA 1a
[2023-07-29 15:39] LABS: Vitamin B6 12.3 ng/mL (2.1-21.7)
[2023-07-29 16:58] LABS: FIB-ALT 73 U/L (9-46); FIB-Alpha-2-Macroglobulin 415 mg/dL (106-279); FIB-Apolipoprotein A1 205 mg/dL (94-176); FIB-GGT 264 U/L (3-90); FIB-Haptoglobin 145 mg/dL (43-212); FIB-Total Bilirubin 1.1 mg/dL (0.2-1.2); Liver Fibrosis Score 0.66; Liver Fibrosis Stage F3; Nec Inflam Act Grade A2; Nec Inflam Act Score 0.57
== END 2023-07-19 13:05 | disposition home or self-care (01) ==
LOC: HO.LAB 13:04
PROVIDERS: PCP Internal Medicine; Visit Provider Internal Medicine Gastroenterology
DX: K74.60 Unspecified cirrhosis of liver (principal); L02.213 Cutaneous abscess of chest wall; K75.81 Nonalcoholic steatohepatitis (NASH)
CPT/HCPCS: 36415; 80053; 81596; 82180; 82306; 82607; 82728; 82746; 84207; 84425; 84446; 84590; 84591; 84597; 84630; 85025; 85610; 86140; 87070; 87205; 87522; 87902; 99212

== ENCOUNTER 2023-07-19 13:04 | Outpatient (AMB) | payer OTHER, SELFPAY ==
--- NOTE | 2023-07-19 13:06 | A.OFFVIS_ITS ---
Vital Signs 07/19/23 13:08 Height 5 ft 9 in Weight 138 lb BMI 20.4 BP 156/93 H Blood Pressure Location Lt brachial Position Sitting Pulse 85 Intake Visit Reasons: Per Infectious Disease Intake Note: Gopal presents in the office per Jamey. CC: Pains in the abdomen due to his liver. 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 He has required brain surgery due to abscess about a year ago Currently he feels fine, he does suffer from seizure d/o and is seeing neurologist He has a prulent granuloma in chest wall He has been drug free for 3-4 weeks, was still using IV drugs up till then He drinks alcohol, 7 beers a day He has constant pain around RUQ, worse with deep breathing. No effect with food, Denies leg edema, mild tenderness around upper chest ROS Constitutional : No Weight loss, No Fever, No Chills ENT/Mouth : No sore throat, No Rhinorrhea Eyes: No Swelling, No Redness Cardiovascular : No Chest Pain, No SOB, No Edema Respiratory : No Cough, No Sputum, No Wheezing Gastrointestinal : see HPI Genitourinary : NO Dysuria, No Urinary Frequency, No Hematuria, No Urgency Musculoskeletal : + joint pain, No Myalgias, No Joint Swelling Skin : draining wound chest Neuro : No Weakness, No Numbness, No Dizziness, No Headache Psych : No Anxiety/Panic, No Depression Heme/Lymph: No Bruising, No Lymphadenopathy Endocrine : No Polyuria, No Polydipsia All other systems reviewed and are negative. EXAM: GENERAL: The patient is well developed and nontoxic. VITAL SIGNS:see workflow HEENT: Nonicteric sclerae, PERRLA, EOMI. Oropharynx clear. Moist mucous membranes. Conjunctivae appear well perfused. No thyroid mass. CHEST: Chest wall is nontender--granuloma noted with some purulent d/c HEART: Regular rate and rhythm without murmurs. LUNGS: Clear to auscultation bilaterally. ABDOMEN: Soft, positive bowel sounds, nontender, no organomegaly.no flank tenderness SKIN: tin dermatitis, NEUROLOGIC: Cranial nerves II-XII intact without motor/sensory deficit. Psych: normal affect A/p: 1/ Cirrhosis 2/2 Hep C--may have reccurence due to ongoing drug use 2/ Chest wound, infected granuloma, PLAN: 1/ nutrition screen 2/ recheck hep screen, 3/ US liver and chest wall--might need surgical referral if deeper than it looks --might need prolonged abx, culture, and drainage 4/ high protein diet 5/ recalculate MELD with rept labs [facility] Medical History Hepatitis C Ascites Septic pulmonary embolism Cirrhosis MRSA bacteremia Hematoma and contusion Ascites IV drug user Surgical History History of esophagogastroduodenoscopy (EGD) No pertinent past surgical history Social History Household Members: Other Housing: Homeless Do you presently have visiting nurse or other home services: No Alcohol intake: current Alcohol intake frequency: 0-2 drinks per day Alcohol type: beer Comment: refuses high fall risk measures Patient Tobacco Use Status: Never used Tobacco Tobacco use type: Cigarette e-Cigarette/Vaping Use: Never Used Second Hand Smoke Exposure: No Substance Use Type: Crack/Cocaine and Heroin Advance Directives Date on File: 01/15/22 service: No Current occupational status: unemployed Cognitive needs: No Hearing needs: No Vision needs: No Physical Exam Vital Signs: Last Vital Signs Pulse 85 07/19/23 13:08 BP 156/93 H 07/19/23 13:08 BMI result Body Mass Index 20.4 Assessment & Plan Assessment & Plan (1) Cirrhosis: Code(s): K74.60 - Unspecified cirrhosis of liver Category: Medical Plan: as above (2) Chest wall abscess: Code(s): L02.213 - Cutaneous abscess of chest wall Category: Medical Plan: as above--swab taken Orders: Orders C Reactive Protein 07/19/23 K74.60 - Unspecified cirrhosis of liver, L02.213 - Cutaneous abscess of chest wall Complete Blood Count Auto Diff 07/19/23 K74.60 - Unspecified cirrhosis of liver, L02.213 - Cutaneous abscess of chest wall Comprehensive Met. Panel 07/19/23 K75.81 - Nonalcoholic steatohepatitis (MERA), K74.60 - Unspecified cirrhosis of liver, L02.213 - Cutaneous abscess of chest wall Liver Fibrosis Pnl 07/19/23 K74.60 - Unspecified cirrhosis of liver, L02.213 - Cutaneous abscess of chest wall Vitamin A 07/19/23 K74.60 - Unspecified cirrhosis of liver, L02.213 - Cutaneous abscess of chest wall Vitamin B1 07/19/23 K74.60 - Unspecified cirrhosis of liver, L02.213 - Cutaneous abscess of chest wall Vitamin B12 and Folate 07/19/23 K74.60 - Unspecified cirrhosis of liver, L02.213 - Cutaneous abscess of chest wall Vitamin B6 07/19/23 K74.60 - Unspecified cirrhosis of liver, L02.213 - Cutaneous abscess of chest wall Vitamin D 25-OH Total 07/19/23 K74.60 - Unspecified cirrhosis of liver, L02.213 - Cutaneous abscess of chest wall Vitamin E 07/19/23 K74.60 - Unspecified cirrhosis of liver, L02.213 - Cutaneous abscess of chest wall Vitamin K1 07/19/23 K74.60 - Unspecified cirrhosis of liver, L02.213 - Cutaneous abscess of chest wall Zinc 07/19/23 K74.60 - Unspecified cirrhosis of liver, L02.213 - Cutaneous abscess of chest wall Routine Culture w Gram Stain 07/19/23 L02.213 - Cutaneous abscess of chest wall US abdomen comp w elastography 07/19/23 K74.60 - Unspecified cirrhosis of liver, L02.213 - Cutaneous abscess of chest wall Hepatitis C Viral Load 07/19/23 K74.60 - Unspecified cirrhosis of liver, L02.213 - Cutaneous abscess of chest wall Hepatitis C Genotype 07/19/23 K74.60 - Unspecified cirrhosis of liver, L02.213 - Cutaneous abscess of chest wall Prothrombin Time INR 07/19/23 K74.60 - Unspecified cirrhosis of liver, L02.213 - Cutaneous abscess of chest wall US chest 07/19/23 K74.60 - Unspecified cirrhosis of liver, L02.213 - Cutaneous abscess of chest wall Vitamin B5 (Pantothenic Acid) 07/19/23 K74.60 - Unspecified cirrhosis of liver, L02.213 - Cutaneous abscess of chest wall Vitamin B3 (Niacin) 07/19/23 K74.60 - Unspecified cirrhosis of liver, L02.213 - Cutaneous abscess of chest wall Vitamin C 07/19/23 K74.60 - Unspecified cirrhosis of liver, L02.213 - Cutaneous abscess of chest wall Ferritin 07/19/23 K74.60 - Unspecified cirrhosis of liver, L02.213 - Cutaneous abscess of chest wall Medications: New metronidazole 1% (Metrogel) 1 appl topical DAILY 60 grams 0RF Coding Level of Care Code Est Pt Level 4 (72880) Diagnoses Cirrhosis K74.60 Chest wall abscess L02.213
[2023-07-19 13:08] VITALS: BP 156/93; PULSE 85; BMI 20.4
== END 2023-07-19 13:48 | disposition home or self-care (01) ==
PROVIDERS: Visit Provider Internal Medicine Gastroenterology
DX: K74.60 Unspecified cirrhosis of liver (principal); L02.213 Cutaneous abscess of chest wall
CPT/HCPCS: 99214

== ENCOUNTER 2023-08-04 10:54 | Outpatient (REF) | payer OTHER, SELFPAY ==
--- NOTE | ~2023-08-04 | US_ITS ---
EXAMINATION: US COMPLETE ABDOMEN WITH LIVER ELASTOGRAPHY CLINICAL INFORMATION: Unspecified cirrhosis of liver. COMPARISON: None available. TECHNIQUE: Real-time imaging of the abdominal viscera. Noninvasive ultrasound liver fibrosis assessment is performed using Soy ElastPQ point quantification shear wave elastography (2D-SWE) with a C5-2 MHz transducer. Multiple elastography samples are obtained. FINDINGS: PANCREAS:The visualized pancreatic head and body are echogenic in appearance. The remainder of the pancreas is obscured from visualization by the overlying bowel gas. ABDOMINAL AORTA: Proximal aorta is obscured. The mid and distal aorta show no evidence of an aneurysm. INFERIOR VENA CAVA: Visualized portions are normal. LIVER: The liver has a nodular contour and is heterogeneously increased in echotexture. No focal lesion or intrahepatic biliary duct dilatation. The right lobe measures 15.2 cm in length. The left lobe measures 12.1 cm in length. Portal flow is towards the liver (hepatopetal). Shear wave liver elastography median stiffness is 2.38 m/s (reference: normal median stiffness is 1.3 m/s or less). IQR/median stiffness to assess sampling precision is 0.12 (reference: good quality data set is IQR/median stiffness of 0.15 or less). GALLBLADDER: Normal. The gallbladder is physiologically distended without evidence of stones, sludge, polyps, wall thickening or pericholecystic fluid. COMMON BILE DUCT: Normal in caliber measuring 1.1 cm in diameter. RIGHT KIDNEY: Normal. No hydronephrosis. No renal calculi or focal parenchymal lesions. The kidney measures 10.0 cm in maximum dimension. LEFT KIDNEY: Normal. No hydronephrosis. No renal calculi or focal parenchymal lesions. The kidney measures 11.6 cm in maximum dimension. SPLEEN: The spleen is enlarged measuring 13.3 cm in maximum dimension. FREE FLUID: None. US/US abdomen comp w elastography IMPRESSION: 1. Nodular heterogeneous liver with increased echogenicity suggesting hepatic steatosis and cirrhosis with splenomegaly. 2. Liver Elastography: Measurements are suggestive of clinically significant portal hypertension. REFERENCE: Society of Radiologists in Ultrasound Liver Stiffness Thresholds (2019): LIVER STIFFNESS THRESHOLDS: *Liver Stiffness equal or less than 1.3 m/s: High probability of being normal. *Liver Stiffness less than 1.7 m/s: In the absence of other known clinical signs, rules out compensated advanced chronic liver disease. *Liver Stiffness 1.7-2.1 m/s: Suggestive of compensated advanced chronic liver disease but need further test for confirmation. *Liver Stiffness over 2.1 m/s: Rules in compensated advanced chronic liver disease. *Liver Stiffness over 2.4 m/s: Suggestive of clinically significant portal hypertension. QUALITY OF DATA SET: *IQR/Median value equal or less than 0.15 implies a quality data set. *IQR/Median value over 0.15 implies a poor quality data set. SIGNIFICANT CHANGE FROM PRIOR EXAM: Significant change if liver stiffness measurement is 10% or greater from prior exam. OTHER CONSIDERATIONS: The stage of liver fibrosis may be overestimated in the setting of acute hepatitis, liver inflammation, elevated liver function tests, hepatic vascular congestion, obstructive cholestasis, non-fasting state, and infiltrative diseases such as amyloidosis and lymphoma. In some patients with NAFLD, the liver stiffness thresholds for compensated advanced chronic liver disease may be lower. In causes other than viral hepatitis and NAFLD, liver stiffness thresholds are not well established.
== END 2023-08-04 10:55 | disposition home or self-care (01) ==
LOC: HO.US 10:54
PROVIDERS: PCP Internal Medicine; Visit Provider Internal Medicine Gastroenterology
DX: K74.60 Unspecified cirrhosis of liver (principal); L02.213 Cutaneous abscess of chest wall
CPT/HCPCS: 76700; 76981

== ENCOUNTER 2023-09-16 13:03 | Outpatient (AMB) | payer OTHER, SELFPAY ==
--- NOTE | 2023-09-16 13:05 | MHC.OFFVIS ---
Vital Signs 09/16/23 13:13 Height 5 ft 9 in Weight 153 lb BMI 22.6 BP 132/94 H Blood Pressure Location Lt brachial Position Sitting Pulse 72 Intake Visit Reasons: Abscess Intake Note: Patient is seen in office for evaluation and treatment of an abscess of the left chest. 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 He reports having a previous rib fracture in the lower left chest several years ago and subsequently always having a palpable lump in this location. Several months ago he began to have increased swelling, pain with subsequent drainage. He now has persistent drainage and pain associated with this lesion in the anterior left chest. He is tried antibiotics for several courses without significant improvement. He denies any ongoing fever, chills, nausea or vomiting. He presents today to discuss excision of this persistent drainage site. FORMERLY [facility], [facility] Medical History Hepatitis C Ascites Septic pulmonary embolism Cirrhosis MRSA bacteremia Hematoma and contusion Ascites IV drug user Surgical History History of esophagogastroduodenoscopy (EGD) No pertinent past surgical history Social History Household Members: Other Housing: Homeless Do you presently have visiting nurse or other home services: No Alcohol intake: current Alcohol intake frequency: 0-2 drinks per day Alcohol type: beer Comment: refuses high fall risk measures Patient Tobacco Use Status: Never used Tobacco Tobacco use type: Cigarette e-Cigarette/Vaping Use: Never Used Second Hand Smoke Exposure: No Substance Use Type: Crack/Cocaine and Heroin Advance Directives Date on File: 01/15/22 service: No Current occupational status: unemployed Cognitive needs: No Hearing needs: No Vision needs: No Review of Systems Const All systems reviewed & are unremarkable except as noted in HPI and below Denies chills, Denies fever(s), Denies headache(s), Denies poor appetite and Denies weakness ENT Denies headache(s) Card Denies chest pain, Denies irregular heart rhythm, Denies palpitations and Denies dyspnea Resp Denies cough, Denies excessive phlegm production and Denies dyspnea GI Denies abdominal pain, Denies bloating, Denies change in bowel habits, Denies constipation, Denies heartburn, Denies diarrhea, Denies nausea and Denies vomiting Denies difficulty urinating and Denies urinary frequency Musc Denies back pain, Denies muscle weakness and Denies numbness Skin/Breast Denies changing lesions and Denies unusual bruising Neuro Denies headache(s), Denies numbness, Denies paresthesias and Denies weakness Psych Denies anxiety and Denies depression Endo Denies palpitations Cole/Lymph Denies lymphadenopathy Physical Exam Const General: cooperative and no acute distress Nutritional Appearance: well nourished Orientation/consciousness: patient oriented x3 Limitations: no limitations HEENT Head: Yes normocephalic and Yes atraumatic Ears: hearing grossly normal bilaterally Chest Chest/axillae images: 1. 1 cm nodular area with an open wound but no surrounding erythema. Lesion is located directly over the costochondral junction in the lower ribcage. No palpable fluctuance noted at this time. Resp Effort & Inspection: normal respiratory effort, no audible wheezes, no cough and no respiratory distress Cardio Jugular venous distension: no JVD GI Inspection: Yes normal to inspection Skin Other: Warm, dry, no rash Neuro General: patient oriented x3 Extrem General: Yes no clubbing, cyanosis or edema Assessment & Plan Assessment & Plan (1) Chest wall abscess: Code(s): L02.213 - Cutaneous abscess of chest wall Category: Medical Plan 38-year-old male patient with a prior history of fracture rib of the left side presenting with a persistent draining cyst in the same location. On examination there is a cystic appearing lesion in the lower chest wall which is producing purulent discharge. No surrounding erythema is noted however the surrounding skin is irritated from skin tape. We discussed the options including continued observation verses excision of this cyst. After discussion of the procedure, risks, and alternatives, he consents to excision which will be performed under local anesthesia as an office procedure. Coding Level of Care Code New Pt Level 4 (37871) Diagnoses Chest wall abscess L02.213
[2023-09-16 13:13] VITALS: BP 132/94; PULSE 72; BMI 22.6
== END 2023-09-16 13:27 | disposition home or self-care (01) ==
PROVIDERS: PCP Internal Medicine; Referring Provider Internal Medicine Gastroenterology; Visit Provider Surgery
DX: L02.213 Cutaneous abscess of chest wall (principal)
CPT/HCPCS: 99214

== ENCOUNTER → 2023-09-16 13:03 | Outpatient (BNVA) | payer OTHER, SELFPAY | PROVIDERS: PCP Internal Medicine; Referring Provider Internal Medicine Gastroenterology; Visit Provider Surgery | DX: L02.213 Cutaneous abscess of chest wall (principal) | CPT/HCPCS: 99212 ==

== ENCOUNTER 2023-09-28 13:11 | Outpatient (REF) | payer OTHER, SELFPAY | END 2023-09-28 13:12 | disposition home or self-care (01) | LOC: HO.LNP 13:11 | PROVIDERS: PCP Internal Medicine; Visit Provider Surgery | DX: L02.213 Cutaneous abscess of chest wall (principal) | CPT/HCPCS: 11402; 88304; 88305 ==

== ENCOUNTER 2023-09-28 13:11 | Outpatient (AMB) | payer OTHER, SELFPAY ==
[2023-09-28 13:17] VITALS: BMI 22.6
--- NOTE | 2023-09-28 13:17 | A.OFFVIS_ITS ---
Vital Signs 09/28/23 13:17 Height 5 ft 9 in Weight 153 lb 0.013 oz BMI 22.6 Intake Visit Reasons: excision Chest wall abscess Intake Note: Patient is seen in office for office procedure, excision of chest wall abscess. Pt c/o: reports no complaints. 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 Required: No Accompanied by: Other Relationship Allergies No Known Allergies [No Known Allergies*] Allergy (Verified 09/28/23 13:28) HPI Comments Details: Patient returns for excision of chest wall lesion [facility] Medical History Hepatitis C Ascites Septic pulmonary embolism Cirrhosis MRSA bacteremia Hematoma and contusion Ascites IV drug user Surgical History History of esophagogastroduodenoscopy (EGD) No pertinent past surgical history Social History Household Members: Other Housing: Homeless Do you presently have visiting nurse or other home services: No Alcohol intake: current Alcohol intake frequency: 0-2 drinks per day Alcohol type: beer Comment: refuses high fall risk measures Patient Tobacco Use Status: Never used Tobacco Tobacco use type: Cigarette e-Cigarette/Vaping Use: Never Used Second Hand Smoke Exposure: No Substance Use Type: Crack/Cocaine and Heroin Advance Directives Date on File: 01/15/22 service: No Current occupational status: unemployed Cognitive needs: No Hearing needs: No Vision needs: No Physical Exam Vital Signs: BMI result Body Mass Index 22.6 Chest Other: Chest wall lesion measuring approximately 2 cm in diameter as previously noted to the left of the sternum. Office Procedures Excision Details: Preoperative diagnosis: Nonhealing chest wound left chest Postoperative diagnosis: Same Procedure: Excision of non healing chest wound left chest Surgeon: Garo Chavez MD Mix Technician: None Anesthesia: Lidocaine 1% with epinephrine Indications for procedure: Persistent draining chest wound left chest Operative findings: Cystic type lesion left chest wall with granulation tissue Specimen: Nonhealing chest wound left chest Estimated blood loss: 5 mL Complications: None Procedure details: Patient was brought to the procedure room and placed in a supine position. The site of surgery was confirmed by the patient in the left chest. After assuring informed consent the skin was prepped with Betadine and draped in a sterile fashion. Local anesthesia was then infiltrated circumferentially around the lesion. Elliptical incision was then created with a 15 blade and the lesion completely excised down into the subcutaneous tissue. The lesion was excised off of the pectoralis muscle fascia. The specimen was passed off the table and sent to pathology for further examination. Hemostasis was assured using suture LigaSure of 3-0 Polysorb suture. Dermis was reapproximated using 3-0 Polysorb sutures. Skin was then closed using interru pted 3-0 nylon sutures. Sterile dressings consisting of a 2 x 2 gauze and Tegaderm were then applied. The patient tolerated the procedure well and was discharged to home in stable condition. [id number]/arms/legs 1.1-2cm Procedure code (CPT) selection complete Assessment & Plan Assessment & Plan (1) Chest wall abscess: Code(s): L02.213 - Cutaneous abscess of chest wall Category: Medical Plan Patient will return in 1 week for suture removal. Orders: Orders Surgical Today L02.213 - Cutaneous abscess of chest wall Coding Level of Care Code Procedure Only Diagnoses Chest wall abscess L02.213 CPT Codes Trunk/Arms/Legs - CPT: 51639-[id number]/arms/legs 1.1-2cm ([id number])
== END 2023-09-28 14:07 | disposition home or self-care (01) ==
PROVIDERS: PCP Internal Medicine; Visit Provider Surgery
DX: L02.213 Cutaneous abscess of chest wall (principal)
CPT/HCPCS: 11402

== ENCOUNTER 2023-10-07 13:33 | Outpatient (AMB) | payer OTHER, SELFPAY ==
--- NOTE | 2023-10-07 13:36 | MHC.OFFVIS ---
Vital Signs 10/07/23 13:40 Height 5 ft 9 in Weight 156 lb 15.506 oz BMI 23.2 Pulse 72 Intake Visit Reasons: s/p excision Chest wall abscess Intake Note: Patient is seen in office for post op assessment post excision of chest wall abscess. Pt c/o: admits to sore, bruise, stitches are dry and clean Accompanied by: Self / Same As Patient Allergies No Known Allergies [No Known Allergies*] Allergy (Verified 10/07/23 13:41) HPI Comments Details: Patient returns 1 week following excision of a left chest cyst. He tolerated the procedure well but did report some bleeding from the incision immediately after the surgery. He has been on anticoagulation. More recently the incision has been clean and dry with some surrounding ecchymosis. He returns today for suture removal. Pathology reveals a subcutaneous abscess formation, fibrotic dense perivascular mixed inflammation with hemosiderin deposition and reactive changes; negative for malignancy. PFSH Medical History Hepatitis C Ascites Septic pulmonary embolism Cirrhosis MRSA bacteremia Hematoma and contusion Ascites IV drug user Surgical History History of esophagogastroduodenoscopy (EGD) No pertinent past surgical history Social History Household Members: Other Housing: Homeless Do you presently have visiting nurse or other home services: No Alcohol intake: current Alcohol intake frequency: 0-2 drinks per day Alcohol type: beer Comment: refuses high fall risk measures Patient Tobacco Use Status: Never used Tobacco Tobacco use type: Cigarette e-Cigarette/Vaping Use: Never Used Second Hand Smoke Exposure: No Substance Use Type: Crack/Cocaine and Heroin Advance Directives Date on File: 01/15/22 service: No Current occupational status: unemployed Cognitive needs: No Hearing needs: No Vision needs: No Physical Exam Vital Signs: Last Vital Signs Pulse 72 10/07/23 13:40 BMI result Body Mass Index 23.2 Chest Other: Incision is clean and intact with intact sutures. Surrounding area of ecchymosis is noted with probable underlying hematoma. Sutures removed and Steri-Strips applied. Extrem General: Yes normal to inspection Assessment & Plan Assessment & Plan (1) Chest wall abscess: Code(s): L02.213 - Cutaneous abscess of chest wall Category: Medical Plan 38-year-old male patient with a chronic infection of the left chest status post excision 1 week ago. Pathology was benign with subcutaneous abscess formation. Wounds are now clean and intact. He should follow up as needed. Coding Level of Care Code Global (21566) Diagnoses Chest wall abscess L02.213
[2023-10-07 13:40] VITALS: PULSE 72; BMI 23.2
== END 2023-10-07 13:44 | disposition home or self-care (01) ==
PROVIDERS: PCP Internal Medicine; Visit Provider Surgery
DX: L02.213 Cutaneous abscess of chest wall (principal)
CPT/HCPCS: 99024

== ENCOUNTER → 2023-10-07 13:33 | Outpatient (BNVA) | payer OTHER, SELFPAY | PROVIDERS: PCP Internal Medicine; Visit Provider Surgery | DX: Z48.1 Encounter for planned postprocedural wound closure (principal); Z87.2 Personal history of diseases of the skin and subcutaneous tissue | CPT/HCPCS: 99212 ==

== ENCOUNTER 2023-10-27 14:20 | Outpatient (AMB) | payer OTHER, SELFPAY ==
[2023-10-27 14:22] VITALS: BP 142/86; PULSE 91; O2SAT 93; BMI 23.0
--- NOTE | 2023-10-27 14:22 | A.OFFPC_ITS ---
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 Accompanied by: Self / Same As Patient Allergies No Known Allergies [No Known Allergies*] Allergy (Verified 10/27/23 14:22) Medication List - Last Reconciled 10/28/23 by Alberto Cole MD apixaban (Eliquis) 5 mg PO BID ibuprofen 600 mg PO Q6H PRN ketoconazole 2% 1 appl topical DAILY levetiracetam 1,500 mg PO BID metronidazole 1% (Metrogel) 1 appl topical DAILY sofosbuvir-velpatasvir 400-100 mg 1 tab PO DAILY 12 weeks sulfamethoxazole-trimethoprim 800-160 mg (Bactrim DS) 1 tab PO BID thiamine HCl (vitamin B1) 100 mg PO DAILY Tobacco use date assessed: 03/24/23 Dental Screening Dental Screen Date: 03/24/23 HPI follow up HPI Details recurrent drainage from skin abscess abd wall; was drained a month ago PFSH Medical History Hepatitis C Ascites Septic pulmonary embolism Cirrhosis MRSA bacteremia Hematoma and contusion Ascites IV drug user Surgical History History of esophagogastroduodenoscopy (EGD) No pertinent past surgical history Social History Household Members: Other Housing: Homeless Do you presently have visiting nurse or other home services: No Alcohol intake: current Alcohol intake frequency: 0-2 drinks per day Alcohol type: beer Comment: refuses high fall risk measures Patient Tobacco Use Status: Never used Tobacco Tobacco use type: Cigarette e-Cigarette/Vaping Use: Never Used Second Hand Smoke Exposure: No Substance Use Type: Crack/Cocaine and Heroin Advance Directives Date on File: 01/15/22 service: No Current occupational status: unemployed Cognitive needs: No Hearing needs: No Vision needs: No Questionnaire PHQ-9 Over the last 2 weeks, how often have you been bothered by any of the following problems? 1. Little interest or pleasure in doing things: not at all 2. Feeling down, depressed, or hopeless: nearly every day 3. Trouble falling or staying asleep, or sleeping too much: nearly every day 4. Feeling tired or having little energy: nearly every day 5. Poor appetite or overeating: several days 6. Feeling bad about yourself - or that you are a failure or have let yourself or your family down: not at all 7. Trouble concentrating on things, such as reading the newspaper or watching television: not at all 8. Moving or speaking so slowly that other people could have noticed. Or the opposite - being so fidgety or restless that you have been moving around a lot more than usual: not at all 9. Thoughts that you would be better off or of hurting yourself in some way: not at all Total score: 10 Depression Screening Interpretation: Positive Depression Screening Done: Yes 92191 - PHQ-9 Billing: Yes (known problem) Source: Developed by Drs. Gopal Harp, Nahed Perez, Emanuel Kaufman and colleagues, with an educational soham from [employer]. Thrive Questionnaire Date Thrive assessed: 03/24/23 AUDIT C Alcohol Use Questionnaire (AUDIT-C) 1. How often do you have a drink containing alcohol?: Never Total Score: 0 Score Reviewed/Action Taken: Yes PETE-7 AMB Questionnaire PETE-7 Date PETE - 7 assessed: 03/24/23 Source: Developed by Drs. Gopal Harp, Nahed Perez, Emanuel Kaufman and colleagues, with an educational soham from [employer]. Review of Systems Const Denies chills, Denies headache(s) and Denies weight loss ENT Denies headache(s) Card Denies chest pain, Denies syncope, Denies irregular heart rhythm and Denies dyspnea Resp Denies chest congestion, Denies cough and Denies dyspnea GI Denies abdominal pain, Denies change in stool character, Denies nausea and Denies vomiting Musc Denies deformity and Denies joint swelling Neuro Denies syncope and Denies headache(s) Physical exam (Primary Care) Vital Signs: Last Vital Signs Pulse 91 10/27/23 14:22 BP 142/86 H 10/27/23 14:22 Pulse Ox 93 10/27/23 14:22 Oxygen Delivery Method Room Air 10/27/23 14:22 BMI result Body Mass Index 23.0 Tobacco/Smoking Status: Tobacco use Status Tobacco use date assessed 03/24/23 10/27/23 14:28 Patient Tobacco Use Status Never used Tobacco 10/27/23 14:28 Tobacco use type Cigarette 10/27/23 14:28 e-Cigarette/Vaping Use Never Used 10/27/23 14:28 PHQ-9: PHQ-9 Score PHQ-9: Total score 10 10/27/23 14:28 Depression Screening Interpretation: Positive Thrive Assessment: Date of Thrive Assessment Date Thrive assessed 03/24/23 10/27/23 14:28 Const General: cooperative, comfortable, no acute distress and alert Neck Neck: Yes no lymphadenopathy Thyroid: Thyroid normal Resp Effort & Inspection: normal respiratory effort Auscultation: clear to auscultation bilaterally Percussion: percussion normal Cardio Jugular venous distension: no JVD Palpation: normal PMI Rate: regular rate Rhythm: regular rhythm Heart sounds: S1 normal heart sound present and S2 normal heart sound present GI Inspection: Yes normal to inspection Palpation (GI): No hepatosplenomegaly present Skin Other: drainage from abscess upper abd wall Extrem General: Yes no clubbing, cyanosis or edema Assessment and Plan Assessment & Plan (1) Abscess of skin: Code(s): L02.91 - Cutaneous abscess, unspecified Plan: referred to surgery Orders: Referrals General Surgery Referral L02.91 - Cutaneous abscess, unspecified Coding Level of Care Code Est Pt Level 3 (11815) Diagnoses Abscess of skin L02.91
== END 2023-10-27 14:41 | disposition home or self-care (01) ==
PROVIDERS: PCP Internal Medicine; Visit Provider Internal Medicine
DX: L02.91 Cutaneous abscess, unspecified (principal)
CPT/HCPCS: 99213

== ENCOUNTER 2023-12-06 14:47 | Outpatient (AMB) | payer OTHER, SELFPAY ==
[2023-12-06 14:50] VITALS: BP 148/90; PULSE 67; BMI 23.5
--- NOTE | 2023-12-06 14:50 | MHC.OFFVIS ---
Vital Signs 12/06/23 14:50 Height 5 ft 9 in Weight 159 lb 2.78 oz BMI 23.5 BP 148/90 H Blood Pressure Location Lt brachial Position Sitting Pulse 67 Intake Visit Reasons: f/u rescheduled from 10/10 Intake Note: Gopal presents in the office as a follow up. CC: He states that he is having all the same pains - his incision at the moment is all healed up. 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 He has required brain surgery due to abscess about a year ago Currently he feels fine, he does suffer from seizure d/o and is seeing neurologist He has a prulent granuloma in chest wall He has been drug free for 3-4 weeks, was still using IV drugs up till then He drinks alcohol, 7 beers a day He has constant pain around RUQ, worse with deep breathing. No effect with food, Denies leg edema, mild tenderness around upper chest INTERIM: He finished epclusa EXAM: GENERAL: The patient is well developed and nontoxic. VITAL SIGNS:see workflow HEENT: Nonicteric sclerae, PERRLA, EOMI. Oropharynx clear. Moist mucous membranes. Conjunctivae appear well perfused. No thyroid mass. CHEST: Chest wall is normal- scar HEART: Regular rate and rhythm without murmurs. LUNGS: Clear to auscultation bilaterally. ABDOMEN: Soft, positive bowel sounds, nontender, no organomegaly.no flank tenderness SKIN: tin dermatitis, NEUROLOGIC: Cranial nerves II-XII intact without motor/sensory deficit. Psych: normal affect A/p: 1/ Cirrhosis 2/2 Hep C--MELD 3.0-11 s/p HCV eradication PLAN: 1/ re check nutrition screen--had low vit c, d and zinc 2/ check 3 month HCV PCR for cure 3/ US q6 month for HCC screening 4/ EGD at future date for variceal screening 5/ no ascites or evidence of HE on exam today 6/ advised on alcohol abstinence, healthy living, coffee intake PFSH Medical History Hepatitis C Ascites Septic pulmonary embolism Cirrhosis MRSA bacteremia Hematoma and contusion Ascites IV drug user Surgical History (Updated 12/06/23 @ 14:52 by SARA Ji) Hx of removal of cyst History of esophagogastroduodenoscopy (EGD) No pertinent past surgical history Social History Household Members: Other Housing: Homeless Do you presently have visiting nurse or other home services: No Alcohol intake: current Alcohol intake frequency: 0-2 drinks per day Alcohol type: beer Comment: refuses high fall risk measures Patient Tobacco Use Status: Never used Tobacco Tobacco use type: Cigarette e-Cigarette/Vaping Use: Never Used Second Hand Smoke Exposure: No Substance Use Type: Crack/Cocaine and Heroin Advance Directives Date on File: 01/15/22 service: No Current occupational status: unemployed Cognitive needs: No Hearing needs: No Vision needs: No Physical Exam Vital Signs: BMI result Body Mass Index 23.5 Assessment & Plan Assessment & Plan (1) Hepatic failure: Code(s): K72.90 - Hepatic failure, unspecified without coma Category: Medical Plan: see above (2) Alcohol abuse: Code(s): F10.10 - Alcohol abuse, uncomplicated Category: Social Hx Plan: see above Orders: Orders Comprehensive Met. Panel 3 Months F10.10 - Alcohol abuse, uncomplicated, K72.90 - Hepatic failure, unspecified without coma, K75.81 - Nonalcoholic steatohepatitis (MERA) Zinc 3 Months F10.10 - Alcohol abuse, uncomplicated, K72.90 - Hepatic failure, unspecified without coma Vitamin A 3 Months F10.10 - Alcohol abuse, uncomplicated, K72.90 - Hepatic failure, unspecified without coma Vitamin C 3 Months F10.10 - Alcohol abuse, uncomplicated, K72.90 - Hepatic failure, unspecified without coma Complete Blood Count Auto Diff 3 Months F10.10 - Alcohol abuse, uncomplicated, K72.90 - Hepatic failure, unspecified without coma Hepatitis C Viral Load 3 Months F10.10 - Alcohol abuse, uncomplicated, K72.90 - Hepatic failure, unspecified without coma Prothrombin Time INR 3 Months F10.10 - Alcohol abuse, uncomplicated, K72.90 - Hepatic failure, unspecified without coma Vitamin D 25-OH Total 3 Months F10.10 - Alcohol abuse, uncomplicated, K72.90 - Hepatic failure, unspecified without coma Coding Level of Care Code Est Pt Level 4 (20829) Diagnoses Hepatic failure K72.90 Alcohol abuse F10.10
== END 2023-12-06 15:13 | disposition home or self-care (01) ==
PROVIDERS: PCP Internal Medicine; Visit Provider Internal Medicine Gastroenterology
DX: K72.90 Hepatic failure, unspecified without coma (principal); F10.10 Alcohol abuse, uncomplicated
CPT/HCPCS: 99214

== ENCOUNTER → 2023-12-06 14:47 | Outpatient (BNVA) | payer OTHER, SELFPAY | PROVIDERS: PCP Internal Medicine; Visit Provider Internal Medicine Gastroenterology | DX: K72.90 Hepatic failure, unspecified without coma (principal); F10.10 Alcohol abuse, uncomplicated | CPT/HCPCS: 99212 ==

== ENCOUNTER 2024-03-31 14:42 | Outpatient (AMB) | payer OTHER, SELFPAY ==
[2024-03-31 14:45] VITALS: BP 158/112; PULSE 76; O2SAT 97; BMI 25.5
--- NOTE | 2024-03-31 14:45 | MHC.PC.OV ---
Vital Signs 03/31/24 14:45 Height 5 ft 9 in Weight 172 lb 6 oz BMI 25.5 BP 158/112 H Blood Pressure Location Lt brachial Position Sitting Pulse 76 Pulse Source Pulse Oximeter Pulse Oximetry (%) 97 Oxygen Delivery Method Room Air Intake Visit Reasons: annual exam Intake Note: alcoholic with no interest in stopping Hide Buyer Required: No Accompanied by: Friend Allergies No Known Allergies [No Known Allergies*] Allergy (Verified 03/31/24 14:51) Tobacco use date assessed: 03/31/24 Dental Screening Dental Screen Date: 03/31/24 Did you have a dental visit in the last 12 months?: Yes Did you have a dental problem in the last 6 months where you did not have access to dental care?: No Was dental information given to patient?: Patient has dentist [facility] Medical History Hepatitis C Ascites Septic pulmonary embolism Cirrhosis MRSA bacteremia Hematoma and contusion Ascites IV drug user Surgical History (Updated 12/06/23 @ 14:52 by SARA Ji) Hx of removal of cyst History of esophagogastroduodenoscopy (EGD) No pertinent past surgical history Social History Household Members: Other Housing: Homeless Do you presently have visiting nurse or other home services: No Alcohol intake: current Alcohol intake frequency: 0-2 drinks per day Alcohol type: beer Comment: refuses high fall risk measures Patient Tobacco Use Status: Never used Tobacco Tobacco use type: Cigarette e-Cigarette/Vaping Use: Never Used Second Hand Smoke Exposure: No Substance Use Type: Crack/Cocaine and Heroin Advance Directives Date on File: 01/15/22 service: No Current occupational status: unemployed Cognitive needs: No Hearing needs: No Vision needs: No Questionnaire PHQ-9 Over the last 2 weeks, how often have you been bothered by any of the following problems? 1. Little interest or pleasure in doing things: nearly every day 2. Feeling down, depressed, or hopeless: nearly every day 3. Trouble falling or staying asleep, or sleeping too much: nearly every day 4. Feeling tired or having little energy: nearly every day 5. Poor appetite or overeating: nearly every day 6. Feeling bad about yourself - or that you are a failure or have let yourself or your family down: nearly every day 7. Trouble concentrating on things, such as reading the newspaper or watching television: nearly every day 8. Moving or speaking so slowly that other people could have noticed. Or the opposite - being so fidgety or restless that you have been moving around a lot more than usual: nearly every day 9. Thoughts that you would be better off or of hurting yourself in some way: nearly every day Total score: 27 26395 - PHQ-9 Billing: Yes Source: Developed by Drs. Gopal Harp, Nahed Perez, Emanuel Kaufman and colleagues, with an educational soham from [employer]. Thrive Questionnaire Date Thrive assessed: 03/24/23 I am a: Patient What is your living situation today?: I have a place to live, but I am worried about losing it in the future Within the past 12 months, did the food you bought not last and you didn't have the money to get more?: Never true Within the past 12 months, did you worry whether your food would run out before you got money to buy more?: Never true Do you have trouble paying for medicines?: No Do you have trouble getting transportation to medical appointments?: No Do you have trouble paying your heating and electricity bill?: No Do you have trouble taking care of your child, family member or friend?: No Do you have trouble with day-to-day activities such as bathing, preparing meals, shopping, managing finances, etc.?: No Are you currently unemployed and looking for a job?: No Are you interested in more education?: No Please select the resources that you would like help with: None Currently or been in a relationship where the following occur: No concerns reported THRIVE Score: 1 AUDIT C Alcohol Use Questionnaire (AUDIT-C) 1. How often do you have a drink containing alcohol?: 4 or more times a week 2. How many drinks containing alcohol do you have on a typical day when you are drinking?: 10 or more (Just beers) 3. How often do you have six or more drinks on one occasion?: Daily or almost daily Total Score: 12 PETE-7 AMB Questionnaire PETE-7 Date PETE - 7 assessed: 03/31/24 Feeling nervous, anxious, or on edge: 3 = Nearly every day Not being able to stop or control worryin = Nearly every day Worrying too much about different things: 3 = Nearly every day Trouble relaxin = Nearly every day Being so restless that it is hard to sit still: 3 = Nearly every day Becoming easily annoyed or irritable: 3 = Nearly every day Feeling afraid as if something awful might happen: 3 = Nearly every day Total PETE-7 score (0-4 normal; 5-9 mild; 10-14 moderate; 15-21 severe): 21 Source: Developed by Drs. Gopal Harp, Nahed Perez, Emanuel Kaufman and colleagues, with an educational soham from [employer]. PETE-7 Assessment Billing PETE-7 Assessment Tool: PETE-7 Assessment 21348 Review of Systems Const Denies chills, Denies fatigue, Denies headache(s) and Denies weight loss Eyes Denies change in vision, Denies diplopia and Denies eye pain ENT Denies vertigo, Denies dizziness, Denies headache(s) and Denies nasal discharge Card Denies chest pain, Denies rapid heart rate and Denies dyspnea on exertion Resp Denies chest congestion, Denies cough, Denies pain with cough and Denies dyspnea on exertion GI Denies abdominal pain, Denies hematochezia and Denies change in bowel habits Musc Denies myalgias, Denies arthralgias and Denies joint swelling Skin/Breast Denies lesions and Denies unusual bruising Neuro Denies vertigo, Denies dizziness, Denies headache(s) and Denies focal weakness Endo Denies fatigue Physical exam (Primary Care) Vital Signs: Last Vital Signs Pulse 76 03/31/24 14:45 BP 158/112 H 03/31/24 14:45 Pulse Ox 97 03/31/24 14:45 Oxygen Delivery Method Room Air 03/31/24 14:45 BMI result Body Mass Index 25.5 Tobacco/Smoking Status: Tobacco use Status Tobacco use date assessed 03/31/24 03/31/24 14:51 Patient Tobacco Use Status Never used Tobacco 03/31/24 14:50 Tobacco use type Cigarette 03/31/24 14:50 e-Cigarette/Vaping Use Never Used 03/31/24 14:50 PHQ-9: PHQ-9 Score PHQ-9: Total score 27 03/31/24 14:51 Thrive Assessment: Date of Thrive Assessment Date Thrive assessed 03/24/23 03/31/24 14:50 Currently or been in a relationship where the following occur: No concerns reported Const General: cooperative, healthy appearing and no acute distress Orientation/consciousness: oriented to person, oriented to place and oriented to time HENMT Head: Yes normal to inspection, Yes normocephalic and Yes atraumatic Mouth: Normal oral and palatal mucosa present and tongue normal Throat: Yes posterior oropharynx normal and Yes uvula midline Eyes General: appearance normal, both eyes and all related structures Neck Neck: Yes normal visual inspection, Yes full ROM and Yes no lymphadenopathy Thyroid: Thyroid normal Carotids: normal carotid upstroke Chest Chest palpation & inspection: normal inspection of the chest Resp Effort & Inspection: normal respiratory effort and able to speak in complete sentences Auscultation: clear to auscultation bilaterally Cardio Jugular venous distension: no JVD Palpation: normal PMI Rate: regular rate Rhythm: regular rhythm Heart sounds: S1 normal heart sound present and S2 normal heart sound present GI Inspection: Yes normal to inspection Palpation (GI): Soft to palpation and No hepatosplenomegaly present Auscultation: normal bowel sounds General: Yes no CVA tenderness Back/Spine/Pelvis Back: no CVA tenderness Skin General skin exam: no rashes or lesions noted Neuro General: oriented to person, oriented to place and oriented to time Extrem General: Yes normal to inspection and Yes full ROM Coding Level of Care Code Est Pt Prev Care 40-64y(54613) Diagnoses Physical exam Z00.00 Alcohol abuse F10.10 Additional Codes PETE-7 Assessment Billing - PETE-7 Assessment Tool: PETE-7 Assessment 85178 ([id number]) PHQ-9 - 20461 - PHQ-9 Billing: Yes ([id number]) Assessment & Plan Assessment & Plan (1) Physical exam: Code(s): Z00.00 - Encounter for general adult medical examination without abnormal findings Category: Medical Plan: stable (2) Alcohol abuse: Code(s): F10.10 - Alcohol abuse, uncomplicated Category: Social Hx Plan: again advised to seek alcohol treatment Orders: Orders Lipid Panel 03/31/24 Z13.220 - Encounter for screening for lipoid disorders Thyroid Stimulating Hormone 03/31/24 Z13.29 - Encounter for screening for other suspected endocrine disorder XR skull min 4V 03/31/24 S02.91XA - Unspecified fracture of skull, initial encounter for closed fracture XR wrist RT 2V 03/31/24 M25.539 - Pain in unspecified wrist Complete Blood Count Auto Diff 03/31/24 Z13.0 - Encounter for screening for diseases of the blood and blood-forming organs and certain disorders involving the immune mechanism Comprehensive [place]. Panel Fast 03/31/24 Z13.9 - Encounter for screening, unspecified Medications: New triamcinolone acetonide 0.1% 1 appl topical DAILY 60 mL 0RF
--- OUTSIDE RECORDS SUMMARY | 2024-03-31 16:07 | XMS_ITS | Patient Health Record ---
Author Organization [facility] Address [address] [place] [address] Care Team Providers Care Fiberglass Boat Builder Name Role Phone Kelsey INFANTE, Alberto Primary Care Provider Unavaila Enoch Rodarte Jr Unavailable REASON FOR REFERRAL No Information MEDICATIONS Medication SIG (Take, Route, Fr equency, Duration) Notes Start Date End Date Status traZODone HCl Active Methadone HCl 40 MG 1 tablet Orally Once a day Active SOCIAL HISTORY Sex Assigned At : Social History Observation Description Sex Assigned At Unknown Alcohol Screen Question Answer Notes Did you have a drink contain ing alcohol in the past year? Yes How often did you have a dri nk containing alcohol in the past year? 4 or more times a week (4 points) How many drinks did you have on a typical day when you were drinking in the past year? 10 or more drinks (4 points) How often did you have 6 or more drinks on one occasion in the past year? Weekly (3 points) Points 11 Interpretation Positive PROBLEMS Problem Type ICD Code Onset Dates Problem Status W/U Status Risk SNOMED Code Notes Problem Alcoholic cirrhosis of liver with ascites (K70.31) Active confirmed Alcoholic cirrhosis (448323692) Problem Chronic hepatitis C without hepatic coma (B18.2) Active confirmed [id number] Problem Chronic hepatitis C (B18.2) Active confirmed Chronic hepatitis C (730459340) Problem Alcohol abuse (F10.10) Active confirmed 20470117 PLAN OF TREATMENT No Information Insurance Providers Payer Name Payer Address Payer Phone Subscriber Number Group Number Insured Name Patient Relationship to Insured Coverage Start Date Coverage End Date [facility] [address] [address] [place], [place] [id number] NIGEL NIX Self - patient is the insured MEDICAID OF [facility] [address] [place] [address] [id number] NIGEL NIX Self - patient is the insured MEDICAL (GENERAL) HISTORY Medical History History ICD Code Denies IA,DM,CVA,Lung disease,renal dise ase hepatitis C PTSD bipolar disorder anxiety depression alcohol abuse Surgical History Surgery Date(Month/Year) right wrist surgery-metal rods and screw s 2012
--- OUTSIDE RECORDS SUMMARY | 2024-03-31 16:07 | XMS_ITS | Clinical Summary ---
Author Organization [facility] it[facility] Address [address] [place] [address] Care Team Providers Care Cook Candy Name Role Phone Unavailable Primary Care Provider Unavailabl e Social History Tobacco Use Types Packs/Day Years Used Date Smoking Tobacco: Never Assessed Sex and Gender Information Value Date Recorded Sex Assigned at Not on file Gender Identity Not on file Sexual Orientation Not on file Plan of Treatment Health Maintenance Due Date Last Done Comments DTaP,Tdap,and Td Vaccines (1 - Tdap) 08/28/2002 Hepatitis B Vaccines (1 of 3 - 19+ 3-dose series) 08/28/2002 Cholesterol Screening (Lipid Panel) 02/08/2022 Depression Screening 02/08/2022 HIV Screening 02/08/2022 Hepatitis C Screening 02/08/2022 Social Influencers of Health Screening 02/08/2022 COVID-19 Vaccine (2023-2 5 season) 2023 Influenza Vaccine (#1) 2023 HIB Vaccines Aged Out No longer eligi ble based on patient's age to complete this topic HPV Vaccines Aged Out No longer eligi ble based on patient's age to complete this topic Hepatitis A Vaccines Aged Out No long er eligible based on patient's age to complete this topic IPV Vaccines Aged Out No longer eligi ble based on patient's age to complete this topic MMR Vaccines Aged Out No longer eligi ble based on patient's age to complete this topic Meningococcal ACWY Vaccine Aged Out N o longer eligible based on patient's age to complete this topic Pneumococcal Vaccine: Pediat rics (0 to 5 Years) and At-Risk Patients (6 to 64 Years) Aged Out No longer eligible b ased on patient's age to complete this topic RSV Immunization Patients Un chi 20 months Aged Out No longer eligible b ased on patient's age to complete this topic Varicella Vaccines Aged Out No longer eligible based on patient's age to complete this topic
--- OUTSIDE RECORDS SUMMARY | 2024-03-31 16:07 | XMS_ITS | Clinical Summary ---
Author Organization [employer] Address [address] [place] [address] [place] [address] Care Team Providers Care Yard Switch Operator Name Role Phone Unavailable Primary Care Provider Unavailabl e Immunizations Name Administration Dates Next Due Moderna Covid-19 Vaccine 6+ Bivalent 05/27/2022 Social History Tobacco Use Types Packs/Day Years Used Date Smoking Tobacco: Never Assessed Sex and Gender Information Value Date Recorded Sex Assigned at Male 02/26/2022 10:03 AM EST Legal Sex Male 10:01 AM EST Gender Identity Male 02/26/2022 10:03 AM EST Sexual Orientation Straight 05/27/2022 1: 47 PM EDT Plan of Treatment Health Maintenance Due Date Last Done Comments Depression Screening 1983 HIV Screening 1983 Lipid Panel 1983 SDOH Screening 1983 Alcohol/Substance Use Screening 1995 Tobacco Screening 1995 Family Planning (PISQ) 08/28/1998 Hepatitis C Screening 08/28/2001 Hepatitis B Vaccines (1 of 3 - 19+ 3-dose series) 08/28/2002 DTaP/Tdap/Td Vaccines (1 - Tdap) 04/11/2015 04/10/2015 COVID-19 Vaccine (3 - 2023-2 5 season) 2023 05/27/2022, 08/27/2020 Influenza Vaccine (#1) 2023 9, 01/01/2016 Zoster Vaccines (1 of 2) 08/28/2033 RSV Patients and Patients Aged 60 years or older (1 - 1-dose 75+ series) 08/28/2058 HIB Vaccines Aged Out No longer eligi [...] patient's age to complete this topic Meningococcal Vaccine Aged Out No farzana maeve eligible based on patient's age to complete this topic Pneumococcal Vaccine: Pediatrics (0 to 5 Years) and At-Risk Patients (6 to 64 Years) Aged Out No longer eligible b ased on patient's age to complete this topic RSV under 20 months Aged Out No longe r eligible based on patient's age to complete this topic Rotavirus Vaccines Aged Out No longer eligible based on patient's age to complete this topic Insurance [facility]
== END 2024-03-31 15:09 | disposition home or self-care (01) ==
PROVIDERS: PCP Internal Medicine; Visit Provider Internal Medicine
DX: Z00.00 Encounter for general adult medical examination without abnormal findings (principal); F10.10 Alcohol abuse, uncomplicated

== ENCOUNTER → 2024-03-31 14:42 | Outpatient (BNVA) | payer OTHER, SELFPAY | PROVIDERS: PCP Internal Medicine; Visit Provider Internal Medicine | DX: Z00.00 Encounter for general adult medical examination without abnormal findings (principal); F10.10 Alcohol abuse, uncomplicated; M25.531 Pain in right wrist; S02.91XD Unspecified fracture of skull, subsequent encounter for fracture with routine healing | CPT/HCPCS: 96127; 99396 ==

== ENCOUNTER 2024-05-09 10:54 | Outpatient (REF) | payer OTHER, SELFPAY ==
--- NOTE | ~2024-05-09 | XR_ITS ---
CLINICAL HISTORY: S02.91XA - Unspecified fracture of skull, initial encounter for closed f... Skull three views Comparison: None Findings: No acute fracture or dislocation identified. Visualized paranasal sinuses are clear. Right parietal craniotomy hardware. Impression: No acute bony abnormality This document has been electronically signed by: Spencer Zuniga MD on 05/09/2024 21:13:46
--- NOTE | ~2024-05-09 | XR_ITS ---
CLINICAL HISTORY: M25.539 - Pain in unspecified wrist Right wrist four views Comparison: None Findings: Ununited scaphoid fracture noted with fixation screw. No other bony abnormality is identified. Impression: Ununited scaphoid fracture This document has been electronically signed by: Spencer Zuniga MD on 05/09/2024 21:14:03
[2024-05-09 11:27] LABS: MANUAL DIFF FLAG NO
[2024-05-09 11:52] LABS: Basophils Percent Auto 0.6 % (0-2); Eosinophils Absolute Auto 0.1 X10*3/uL (0.0-0.4); Eosinophils Percent Auto 2.3 % (0-4); Hematocrit 45.3 % (42.0-52.0); Hemoglobin 15.4 g/dl (14.0-18.0); Imm Gran Abs Auto 0.03 X10*3/uL (0.00-0.03); Imm Gran Pct Auto 0.6 % (0.0-0.4); Lymphocytes Absolute Auto 1.4 X10*3/uL (1.2-4.9); Lymphocytes Percent Auto 30.1 % (20-40); Mean Corpuscular Hemoglobin 33.8 pg (27.0-33.0); Mean Corpuscular Volume 99.3 fL (80.0-98.0); Mean Platelet Volume 10.4 fL (9.4-12.4); Monocytes Absolute Auto 0.6 X10*3/uL (0.1-1.2); Monocytes Percent Auto 12.3 % (2-11); Neutrophils Absolute Auto 2.6 x10*3/uL (2.0-8.3); Neutrophils Percent Auto 54.1 % (45-73); Platelet Count 112 X10*3/uL (160-400); Red Blood Count 4.56 X10*6/uL (4.60-5.80); Red Cell Distribution Width 12.1 % (11.0-16.0); White Blood Count 4.7 X10*3/uL (4.8-10.8)
[2024-05-09 11:55] LABS: INTERNATIONAL NORM RATIO 1.1 (0.9-1.1); Prothrombin Time 12.5 SEC (10.9-12.4)
[2024-05-09 12:36] LABS: Alanine Aminotransferase 41 U/L (0-40); Albumin Level 4.4 g/dL (3.5-5.0); Alkaline Phosphatase 45 U/L (39-117); Anion Gap 11 (12-20); Aspartate Amino Transferase 51 U/L (5-37); Bilirubin Total 0.8 mg/dL (0.0-1.0); Blood Urea Nitrogen 12 mg/dL (9-16); Calcium 9.9 mg/dL (8.4-10.2); Carbon Dioxide 32 mmol/L (22-29); Chloride 104 mmol/L (96-108); Cholesterol 163 mg/dL (<200); Estimated Glomerular Filt Rate > 60; Glucose Fasting 124 mg/dL (60-99); Glucose Random 124 mg/dL (60-115); HDL Cholesterol 68 mg/dL (>40); LDL Cholesterol Calculated 86 mg/dL (<100); Potassium 3.7 mmol/L (3.3-5.1); Sodium 143 mmol/L (135-145); Triglycerides 46 mg/dL (<150); Vitamin D 25-OH Total 21.3 ng/mL (>30)
--- OUTSIDE RECORDS SUMMARY | 2024-05-09 13:30 | XMS_ITS | Clinical Summary ---
Author [facility] Address [address] [place] [address] Care Team Providers Care Skip Miner Blasting Name Role Phone Unavailable Primary Care Provider Unavailabl e Social History Tobacco Use Types Packs/Day Years Used Date Smoking Tobacco: Never Assessed Sex and Gender Information Value Date Recorded Sex Assigned at Not on file Legal Sex Male 7:04 AM EST Gender Identity Not on file Sexual Orientation [...] patient's age to complete this topic Meningococcal B Vacine Aged Out No lo nger eligible based on patient's age to complete [...]
--- OUTSIDE RECORDS SUMMARY | 2024-05-09 13:30 | XMS_ITS | Patient Health Record ---
Author Organization [facility] Address [address] [place] [address] Care Team Providers Care Mobile Electronics Installer Name Role Phone Kelsey INFANTE, Alberto Primary [...] with ascites (K70.31) Active confirmed Alcoholic cirrhosis (658347135) Problem Chronic hepatitis C without hepatic coma (B18.2) Active confirmed 818504979 Problem Chronic hepatitis C (B18.2) Active confirmed Chronic hepatitis C (228285401) Problem Alcohol abuse (F10.10) Active confirmed 90603803 PLAN OF TREATMENT No Information Insurance Providers Payer Name Payer Address Payer Phone Subscriber Number Group Number Insured Name Patient Relationship to Insured Coverage Start Date Coverage End Date [facility] [address] [address] [place], [place] [id number] NIGEL NIX Self - patient is the insured MEDICAID OF [facility] [address] [place] [address] [id number] NIGEL NIX Self - patient is the insured MEDICAL (GENERAL) HISTORY Medical History History ICD Code Denies PA,DM,CVA,Lung disease,renal dise ase hepatitis C PTSD bipolar disorder anxiety depression alcohol abuse Surgical History Surgery Date(Month/Year) right wrist surgery-metal rods and screw s 2012
--- OUTSIDE RECORDS SUMMARY | 2024-05-09 13:30 | XMS_ITS | Clinical Summary ---
Author Organization [employer] Address [address] [place] [address] [place] [address] Care Team Providers Care Store Lead Name Role Phone Unavailable Primary Care Provider [...] 5 Years) and At-Risk Patients (6 to 49) Years) Aged Out No longer eligible b ased on patient's age to complete this topic RSV under 20 months Aged Out No longe r eligible based on patient's age to complete this topic Rotavirus Vaccines Aged Out No longer eligible based on patient's age to complete this topic [place] [address] [place] [address] ACO
[2024-05-10 15:19] LABS: HCV RNA PCR Qn <1.18 NOT DETECTED Log IU/mL (NOT DETECTED); HCV RNA PCR Qn <15 NOT DETECTED IU/mL (NOT DETECTED)
[2024-05-11 20:13] LABS: Zinc 63 mcg/dL (60-130)
[2024-05-12 01:49] LABS: Vitamin A 37 mcg/dL (38-98)
== END 2024-05-09 10:55 | disposition home or self-care (01) ==
LOC: HO.XRAY 10:54
PROVIDERS: Internal Medicine Gastroenterology; PCP Internal Medicine; Visit Provider Internal Medicine
DX: Z13.0 Encounter for screening for diseases of the blood and blood-forming organs and certain disorders involving the immune mechanism (principal); K75.81 Nonalcoholic steatohepatitis (NASH); K72.90 Hepatic failure, unspecified without coma; F10.10 Alcohol abuse, uncomplicated; Z13.220 Encounter for screening for lipoid disorders; Z13.29 Encounter for screening for other suspected endocrine disorder; M25.531 Pain in right wrist; S02.91XA Unspecified fracture of skull, initial encounter for closed fracture
CPT/HCPCS: 36415; 70260; 73100; 80053; 80061; 82306; 84443; 84590; 84630; 85025; 85610; 87522

== ENCOUNTER → 2024-05-09 11:24 | Outpatient (BNV) | payer OTHER, SELFPAY | PROVIDERS: PCP Internal Medicine; Visit Provider Radiology Diagnostic Radiology | DX: S02.91XA Unspecified fracture of skull, initial encounter for closed fracture (principal); S62.001A Unspecified fracture of navicular [scaphoid] bone of right wrist, initial encounter for closed fracture | CPT/HCPCS: 70250; 73110 ==

== ENCOUNTER 2024-05-10 11:39 | Outpatient (REF) | payer OTHER, SELFPAY ==
--- OUTSIDE RECORDS SUMMARY | 2024-05-10 14:10 | XMS_ITS | Patient Health Record ---
Author Organization [facility] Address [address] [place] [address] Care Team Providers Care Top Executive Name Role Phone Kelsey INFANTE, Alberto Primary Care Provider Enoch Egan Jr Unavailable Reason For Referral No Information Medications Medication SIG (Take, Route, Fr equency, Duration) Notes Start Date End Date Status traZODone HCl Active Methadone HCl 40 MG 1 tablet Orally Once a day Active Social History Alcohol Screen Question Answer Notes Did you [...] Weekly (3 points) Points 11 Interpretation Positive Section Notes: 16-20 beers a day beer drink er Problems Problem Type SNOMED Code ICD Code Onset Dates Problem Status W/U Status Risk Notes Problem Alcoholic cirrhosis (412113838) Alcoholic cirrhosis of liver with ascites (K70.31) Active confirmed Problem 837019820 Chronic hepatitis C without hepatic coma (B18.2) Active confirmed Problem Chronic hepatitis C (032111782) Chronic hepatitis C (B18.2) Active confirmed Problem 09356525 Alcohol abuse (F10.10) Active confirmed Plan Of Treatment No Information Insurance Providers Payer Name Payer Address Payer Phone Subscriber Number Group Number Insured Name Patient Relationship to Insured Coverage Start Date Coverage End Date [facility] [address] [address] [place], [place] [id number] [phone] [id number] NIGEL NIX Self - patient is the insured MEDICAID OF [facility] [address] [place] [address] [phone] [id number] NIGEL NIX Self - patient is the insured Medical (General) History Medical History History ICD Code Denies [place],DM,CVA,Lung disease,renal dise ase hepatitis C PTSD bipolar disorder anxiety depression alcohol abuse Surgical History Surgery Date(Month/Year) right wrist surgery-metal rods and screw s 2012
--- OUTSIDE RECORDS SUMMARY | 2024-05-10 14:10 | XMS_ITS | Clinical Summary ---
Author Organization [employer] Address [address] [place] [address] [place] [address] Care Team Providers Care Process Steward Name Role Phone Unavailable Primary Care Provider [...] 2023 05/27/2022, 08/27/2020 Influenza Vaccine (#1) 2023 , 01/01/2016 Zoster Vaccines (1 of 2) 08/28/2033 [...] patient's age to complete this topic [place] [address] [place] [address] ACO
--- OUTSIDE RECORDS SUMMARY | 2024-05-10 14:10 | XMS_ITS | Clinical Summary ---
Author Organization [facility] Address [address] [place] [address] Care Team Providers Care Portfolio Management Marketing Name Role Phone Unavailable Primary Care Provider [...]
[2024-05-11 15:03] LABS: HCV Log PCR <1.18 NOT DETECTED Log IU/mL (NOT DETECTED); HepC Viral Load <15 NOT DETECTED IU/mL (NOT DETECTED)
== END 2024-05-10 11:40 | disposition home or self-care (01) ==
LOC: HO.WFDLDS 11:39
PROVIDERS: Visit Provider Internal Medicine Gastroenterology
DX: K72.90 Hepatic failure, unspecified without coma (principal); F10.10 Alcohol abuse, uncomplicated
CPT/HCPCS: 36415; 87522

== ENCOUNTER 2024-05-15 14:33 | Outpatient (AMB) | payer OTHER, SELFPAY ==
--- NOTE | 2024-05-15 14:55 | A.OFFVIS_ITS ---
Vital Signs 05/15/24 14:55 Height 59 ft Weight 172 lb 6.424 oz BMI 0.2 Intake Visit Reasons: 6 month follow up Intake Note: Patient in office today in 6 months follow up of hepatic failure. CC: He reports diarrhea mostly and pain from abdominal incision always. He reports a nurse practitioner recently had to check his BP x3 times because it was to high. 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 He has required brain surgery due to abscess about a year ago Currently he feels fine, he does suffer from seizure d/o and is seeing neurologist He has a prulent granuloma in chest wall He has been drug free for 3-4 weeks, was still using IV drugs up till then He drinks alcohol, 7 beers a day He has constant pain around RUQ, worse with deep breathing. No effect with food, Denies leg edema, mild tenderness around upper chest INTERIM: He had HCV checked 05/30 --neg so in SVR he needs medical records, for pandemic assistance he has issues with BP--being watched he is drinking 8-9 beers a day--worse during the winter EXAM: GENERAL: The patient is well developed and nontoxic. VITAL SIGNS:see workflow HEENT: Nonicteric sclerae, PERRLA, EOMI. Oropharynx clear. Moist mucous membranes. Conjunctivae appear well perfused. No thyroid mass. CHEST: Chest wall is normal- scar HEART: Regular rate and rhythm without murmurs. LUNGS: Clear to auscultation bilaterally. ABDOMEN: Soft, positive bowel sounds, nontender, no organomegaly.no flank tenderness SKIN: tin dermatitis, NEUROLOGIC: Cranial nerves II-XII intact without motor/sensory deficit. Psych: normal affect A/p: 1/ Cirrhosis 2/2 Hep C--MELD 3.0-11 s/p HCV eradication--still drinking alcohol PLAN: 1/ get notes to find out why on eliquis, might not need now 2/ ketoconazole cream for tin dermatitis 3/ US q6 month for HCC screening 4/ EGD at future date for variceal screening 5/ no ascites or evidence of HE on exam today 6/ advised on alcohol abstinence, healthy living, coffee intake PFSH Medical History Hepatitis C Ascites Septic pulmonary embolism Cirrhosis MRSA bacteremia Hematoma and contusion Ascites IV drug user Surgical History Hx of removal of cyst History of esophagogastroduodenoscopy (EGD) No pertinent past surgical history Social History Household Members: Other Housing: Homeless Do you presently have visiting nurse or other home services: No Alcohol intake: current Alcohol intake frequency: 0-2 drinks per day Alcohol type: beer Comment: refuses high fall risk measures Patient Tobacco Use Status: Never used Tobacco Tobacco use type: Cigarette e-Cigarette/Vaping Use: Never Used Second Hand Smoke Exposure: No Substance Use Type: Crack/Cocaine and Heroin Advance Directives Date on File: 01/15/22 service: No Current occupational status: unemployed Cognitive needs: No Hearing needs: No Vision needs: No Physical Exam Vital Signs: BMI result Body Mass Index 0.2 Assessment & Plan Assessment & Plan (1) Cirrhosis: Code(s): K74.60 - Unspecified cirrhosis of liver Category: Medical Plan: as above Orders: Orders US abdomen chavez w elastography Today K74.60 - Unspecified cirrhosis of liver, K75.81 - Nonalcoholic steatohepatitis (MERA) Medications: Refilled ketoconazole 2% 1 appl topical DAILY 60 grams 0RF Coding Level of Care Code Est Pt Level 4 (38928) Diagnoses Cirrhosis K74.60
--- OUTSIDE RECORDS SUMMARY | 2024-05-15 16:37 | XMS_ITS | Patient Health Record ---
Author Organization [facility] Address [address] [place] [address] Care Team Providers Care Tube Molder Fiberglass Name Role Phone Kelsey INFANTE, Alberto Primary Care Provider Enoch Egan Jr Unavailable [phone] Reason For Referral No Information Medications Medication [...] W/U Status Risk Notes Problem Alcoholic cirrhosis (669590431) Alcoholic cirrhosis of liver with ascites (K70.31) Active confirmed Problem 304988745 Chronic hepatitis C without hepatic coma (B18.2) Active confirmed Problem Chronic hepatitis C (338030377) Chronic hepatitis C (B18.2) Active confirmed Problem [id number] Alcohol abuse (F10.10) Active confirmed Plan Of Treatment No Information Insurance Providers Payer Name Payer Address Payer Phone Subscriber Number Group Number Insured Name Patient Relationship to Insured Coverage Start Date Coverage End Date [facility] [address] [address] [place], [place] [id number] [phone] [id number] NIGEL NIX Self - patient is the insured MEDICAID OF [facility] [address] [place] [address] [phone] [id number] NIGEL NIX Self - patient is the insured Medical (General) History Medical History History ICD Code Denies AL,DM,CVA,Lung disease,renal dise ase hepatitis C PTSD bipolar disorder anxiety depression alcohol abuse Surgical History Surgery Date(Month/Year) right wrist surgery-metal rods and screw s 2012
--- OUTSIDE RECORDS SUMMARY | 2024-05-15 16:37 | XMS_ITS | Clinical Summary ---
Author Organization [employer] Address [address] [place] [address] [place] [address] Care Team Providers Care Cross Country Coach Name Role Phone Unavailable Primary Care Provider [...] patient's age to complete this topic Insurance [place] [address] [address] [place] [address]
== END 2024-05-15 15:35 | disposition home or self-care (01) ==
PROVIDERS: PCP Internal Medicine; Visit Provider Internal Medicine Gastroenterology
DX: K74.60 Unspecified cirrhosis of liver (principal)
CPT/HCPCS: 99214

== ENCOUNTER → 2024-05-15 14:33 | Outpatient (BNVA) | payer OTHER, SELFPAY | PROVIDERS: PCP Internal Medicine; Visit Provider Internal Medicine Gastroenterology | DX: K74.60 Unspecified cirrhosis of liver (principal) | CPT/HCPCS: 99212 ==

== ENCOUNTER 2024-06-07 14:28 | Outpatient (AMB) | payer OTHER, SELFPAY ==
[2024-06-07 14:35] VITALS: BP 140/102; PULSE 95; TEMP 36.5; O2SAT 95; BMI 25.7
--- NOTE | 2024-06-07 14:35 | MHC.PC.OV ---
Vital Signs 06/07/24 14:35 Height 5 ft 9 in Weight 174 lb BMI 25.7 BP 140/102 H Blood Pressure Location Lt brachial Position Sitting Pulse 95 Pulse Source Pulse Oximeter Temp 97.7 F Temp Source Temporal Artery Scan Pulse Oximetry (%) 95 Oxygen Delivery Method Room Air Intake Visit Reasons: [facility] Dr Cole Brand Communications Manager Required: No Accompanied by: Health Care Proxy-Wagner Allergies No Known Allergies [No Known Allergies*] Allergy (Verified 06/07/24 14:50) Medication List - Last Reconciled 06/07/24 by Dylon Pascal PA-C apixaban (Eliquis) 5 mg PO BID ketoconazole 2% 1 appl topical DAILY levetiracetam 1,500 mg PO BID methadone 48 mg PO DAILY thiamine HCl (vitamin B1) 100 mg PO DAILY triamcinolone acetonide 0.1% 1 appl topical DAILY Tobacco use date assessed: 03/31/24 Dental Screening Dental Screen Date: 03/31/[address] Cole HPI Details Patient is a 38-year-old male here today for transition of care visit. Previous PCP was Dr. Cole. Patient has a past medical history significant for alcohol use disorder, liver cirrhosis secondary to alcohol use disorder, opiate dependency, history of a brain abscess s/p surgery cause epilepsy. He also has a complex history of liver disease, previously deemed end-stage, necessitating hospice care and frequent fluid removal. This presumed terminal liver disease required him to choose closer proximity to family over continued hospice care, despite the critical nature of his condition. He narrates a significant recovery journey, highlighting the unexpected improvement in his liver condition despite the terminal diagnosis. His anticoagulation therapy with Eliquis is due to blood clots identified by imaging during extensive hospitalization. These were linked to both his extended immobility and liver condition but persist post-diagnosis. The need for continued anticoagulation is under review, with potential for hematology consultation pending a reassessment. He drinks alcohol regularly, amounting to about 11 beers a day to manage anxiety, depression, and boredom. While he does not suffer withdrawal, he finds it challenging to reduce intake due to established dependencies. His methadone regimen, initiated after a high-dose opiate regimen in hospice, is currently undergoing a taper. [facility] Medical History Drug abuse, IV Hepatitis C Ascites Septic pulmonary embolism Cirrhosis MRSA bacteremia Hematoma and contusion Ascites IV drug user Surgical History Hx of removal of cyst History of esophagogastroduodenoscopy (EGD) No pertinent past surgical history Social History Household Members: Other Housing: Homeless Do you presently have visiting nurse or other home services: No Alcohol intake: current Alcohol intake frequency: 0-2 drinks per day Alcohol type: beer Comment: refuses high fall risk measures Patient Tobacco Use Status: Never used Tobacco Tobacco use type: Cigarette e-Cigarette/Vaping Use: Never Used Second Hand Smoke Exposure: No Substance Use Type: Crack/Cocaine and Heroin Advance Directives Date on File: 01/15/22 service: No Current occupational status: unemployed Cognitive needs: No Hearing needs: No Vision needs: No Questionnaire Thrive Questionnaire Date Thrive assessed: 03/24/23 PETE-7 AMB Questionnaire PETE-7 Date PETE - 7 assessed: 03/31/24 Source: Developed by Drs. Gopal Harp, Nahed Perez, Emanuel Kaufman and colleagues, with an educational soham from [employer]. Review of Systems Const Denies headache(s) Eyes Denies loss of vision ENT Denies vertigo, Denies dizziness, Denies headache(s) and Denies sore throat Card Denies chest pain, Denies leg edema and Denies lightheadedness Resp Denies cough, Denies hemoptysis and Denies wheezing GI Denies abdominal pain, Denies melena, Denies constipation, Denies diarrhea and Denies vomiting Denies dysuria, Denies urinary frequency and Denies urinary urgency Musc Denies arthralgias, Denies joint swelling, Denies numbness and Denies tingling Neuro Denies Abnormal speech present, Denies behavioral changes, Denies vertigo, Denies dizziness, Denies headache(s), Denies loss of vision, Denies memory loss, Denies numbness and Denies tingling Psych Denies anxiety, Denies behavioral changes, Denies depression, Denies memory loss and Denies panic attacks Cole/Lymph Denies easy bleeding and Denies easy bruising Aller/Immun Denies wheezing Physical exam (Primary Care) Vital Signs: Last Vital Signs Temp 97.7 F 06/07/24 14:35 Pulse 95 06/07/24 14:35 BP 140/102 H 06/07/24 14:35 Pulse Ox 95 06/07/24 14:35 Oxygen Delivery Method Room Air 06/07/24 14:35 BMI result Body Mass Index 25.7 Tobacco/Smoking Status: Tobacco use Status Tobacco use date assessed 03/31/24 06/07/24 14:36 Patient Tobacco Use Status Never used Tobacco 06/07/24 14:36 Tobacco use type Cigarette 06/07/24 14:36 e-Cigarette/Vaping Use Never Used 06/07/24 14:36 Thrive Assessment: Date of Thrive Assessment Date Thrive assessed 03/24/23 06/07/24 14:36 Const General: healthy appearing, no acute distress, alert and awake Nutritional Appearance: well nourished Orientation/consciousness: oriented to person, oriented to place and oriented to time HENMT Ears: TM's normal bilaterally General nose exam: Normal nasal mucous membranes and turbinates present Eyes Conjunctivae: conjunctivae normal Sclerae: sclerae normal Pupils: Equal, round and reactive pupils present Neck Neck: Yes no lymphadenopathy and Yes no JVD Thyroid: Thyroid normal Carotids: no bruits Resp Effort & Inspection: normal respiratory effort and not tachypneic Auscultation: no crackles, no rales, no rhonchi and no wheezes Cardio Rate: regular rate Rhythm: regular rhythm Heart sounds: no murmurs and normal S1 and S2 GI Palpation (GI): Soft to palpation, nontender, no hepatomegaly and no splenomegaly Auscultation: normal bowel sounds Skin General skin exam: no rashes or lesions noted and dry skin Neuro General: oriented to person, oriented to place and oriented to time Cranial nerves: Yes Equal, round and reactive pupils present Speech: No Abnormal speech present Gait exam (Neuro): Normal gait present Motor exam (neuro): no tremor noted Extrem Right upper extremity: full ROM Left upper extremity: full ROM Right lower extremity: full ROM; no edema Left lower extremity: full ROM; no edema Psych Mental Status: mental status grossly normal Speech and movement: Normal speech and movement present Affect: normal affect Attitude: cooperative Thought process: Normal thought process present Results AMB Hemoglobin A1c AMB Hemoglobin A1c 4.8 % Last Edit by JN Galarza on 06/07/24 14:53 Coding Level of Care Code Est Pt Level 4 (72044) Diagnoses Primary hypertension I10 Hypertension type: primary hypertension Nonintractable epilepsy without status epilepticus, unspecified epilepsy type G40.909 Epilepsy type: unspecified Intractability: not intractable Status epilepticus: without status epilepticus Opioid use disorder F11.90 correction current use of anticoagulant Z79.01 Alcohol abuse F10.10 Alcoholic cirrhosis of liver with ascites K70.31 Hepatic cirrhosis type: alcoholic cirrhosis Ascites presence: with ascites Assessment & Plan Assessment & Plan (1) HTN (hypertension): Code(s): I10 - Essential (primary) hypertension Category: Medical Qualifiers: Hypertension type: primary hypertension Qualified Code(s): I10 - Essential (primary) hypertension Plan: She has blood pressure elevated today in office. Will give patient paper Rx for blood pressure cuff get to do home blood pressure monitoring. Patient work on low-sodium diet and trying to reduce his alcohol intake. Will consider starting blood pressure medication at next visit. (2) Epilepsy: Code(s): G40.909 - Epilepsy, unspecified, not intractable, without status epilepticus Category: Medical Qualifiers: Epilepsy type: unspecified Intractability: not intractable Status epilepticus: without status epilepticus Qualified Code(s): G40.909 - Epilepsy, unspecified, not intractable, without status epilepticus Plan: Patient followed by Neurology. He continues on liver nicotine 1500 b.i.d. for seizure prophylaxis. Did have brain abscess that was treated with a craniotomy in the right side of his parietal region. (3) Opioid use disorder: Code(s): F11.90 - Opioid use, unspecified, uncomplicated Category: Medical Plan: Patient continues to see a methadone clinic. He has been able to taper his dose down gradually and plans on being off of methadone in the near future. (4) correction current use of anticoagulant: Code(s): Z79.01 - correction (current) use of anticoagulants Category: Medical Plan: Has been on anticoagulation use over the last 2 years since he had multiple clots in his long secondary to being critically ill from alcohol hepatitis/cirrhosis. He continues on Eliquis 5 mg though unclear if he still needs this medication. Will refer to hematology for evaluation and recommendations on further need of anticoagulation especially with the continued use of alcohol at this time. (5) Alcohol abuse: Code(s): F10.10 - Alcohol abuse, uncomplicated Category: Social Hx Plan: Patient admits to drinking about 10-11 beers per day. He does understand he needs help. Will try a compensate to help him reduce his alcohol cravings in abstain. He denies any withdrawal symptoms when he does not drink. We did discuss the possible need to see addiction treatment center. For now staying away from naltrexone in [facility] due to being on methadone treatment. (6) Liver cirrhosis: Code(s): K74.60 - Unspecified cirrhosis of liver Category: Medical Qualifiers: Hepatic cirrhosis type: alcoholic cirrhosis Ascites presence: with ascites Qualified Code(s): K70.31 - Alcoholic cirrhosis of liver with ascites Plan: End-stage liver disease, followed by [facility] [place] [facility] Liver function will continue to be monitored. Alcohol reduction is strongly advised. Orders: Orders AMB Hemoglobin A1c Today Z13.1 - Encounter for screening for diabetes mellitus Complete Blood Count no Diff Today K70.31 - Alcoholic cirrhosis of liver with ascites Comprehensive [place]. 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
--- OUTSIDE RECORDS SUMMARY | 2024-06-07 17:14 | XMS_ITS | Clinical Summary ---
Author Organization [employer] Address [address] [place] [address] [place] [address] Care Team Providers Care Bioinformatics Technician Name Role Phone Unavailable Primary Care Provider [...] patient's age to complete this topic [place] [place] [address] ACO
--- OUTSIDE RECORDS SUMMARY | 2024-06-07 17:14 | XMS_ITS | Clinical Summary ---
Author Organization [facility] Address [address] [place] [address] Care Team Providers Care Regional Truck Driver Name Role Phone Unavailable Primary Care Provider [...]
--- OUTSIDE RECORDS SUMMARY | 2024-06-07 17:14 | XMS_ITS | Patient Health Record ---
Author Organization [facility] Address [address] [place] [address] Care Team Providers Care Furnace Converter Name Role Phone Kelsey INFANTE, Alberto Primary [...] W/U Status Risk Notes Problem Alcoholic cirrhosis (114036006) Alcoholic cirrhosis of liver with ascites (K70.31) Active confirmed Problem 819571672 Chronic hepatitis C without hepatic coma (B18.2) Active confirmed Problem Chronic hepatitis C (635676516) Chronic hepatitis C (B18.2) Active confirmed Problem 85705116 Alcohol abuse (F10.10) Active confirmed Plan Of Treatment No Information Insurance Providers Payer Name Payer Address Payer Phone Subscriber Number Group Number Insured Name Patient Relationship to Insured Coverage Start Date Coverage End Date [facility] [address] [address] [place], [place] [id number] [phone] [id number] NIGEL NIX Self - patient is the insured MEDICAID OF [facility] [address] [place] [address] [phone] [id number] NIGEL NIX Self - patient is the insured Medical (General) History Medical History History ICD Code Denies DE,DM,CVA,Lung disease,renal dise ase hepatitis C PTSD bipolar disorder anxiety depression alcohol abuse Surgical History Surgery Date(Month/Year) right wrist surgery-metal rods and screw s 2012
== END 2024-06-07 15:25 | disposition home or self-care (01) ==
LOC: HO.HMCH 14:29
PROVIDERS: PCP Internal Medicine; Visit Provider Physician Assistant
DX: I10 Essential (primary) hypertension (principal); G40.909 Epilepsy, unspecified, not intractable, without status epilepticus; F11.90 Opioid use, unspecified, uncomplicated; Z79.01 Long term (current) use of anticoagulants; F10.10 Alcohol abuse, uncomplicated; K70.31 Alcoholic cirrhosis of liver with ascites; Z13.1 Encounter for screening for diabetes mellitus

== ENCOUNTER → 2024-06-07 14:28 | Outpatient (BNVA) | payer OTHER, SELFPAY | PROVIDERS: PCP Internal Medicine; Visit Provider Physician Assistant | DX: I10 Essential (primary) hypertension (principal); G40.909 Epilepsy, unspecified, not intractable, without status epilepticus; F11.90 Opioid use, unspecified, uncomplicated; F10.10 Alcohol abuse, uncomplicated; K70.31 Alcoholic cirrhosis of liver with ascites; Z79.01 Long term (current) use of anticoagulants | CPT/HCPCS: 83036; 99212 ==

== ENCOUNTER → 2024-06-21 13:59 | Outpatient (BNV) | payer OTHER, SELFPAY | PROVIDERS: PCP Physician Assistant; Referring Provider Physician Assistant; Visit Provider Internal Medicine | DX: Z79.01 Long term (current) use of anticoagulants (principal); Z86.718 Personal history of other venous thrombosis and embolism | CPT/HCPCS: 99204 ==

== ENCOUNTER 2024-07-25 13:12 | Outpatient (AMB) | payer OTHER, SELFPAY ==
--- NOTE | 2024-07-25 13:14 | A.OFFPC_ITS ---
Vital Signs 07/25/24 13:15 Height 5 ft 9 in Weight 172 lb 6 oz BMI 25.5 BP 110/70 Blood Pressure Location Lt brachial Position Sitting Pulse 72 Pulse Source Pulse Oximeter Temp 97.1 F Temp Source Temporal Artery Scan Pulse Oximetry (%) 97 Oxygen Delivery Method Room Air Intake Visit Reasons: lung problem Intake Note: Patient is here to follow up on Lung problem. Requesting for Blood pressure cuff order [employer] Instructor Required: No Range Aide: Present Accompanied by: Friend Allergies No Known Allergies [No Known Allergies*] Allergy (Verified 07/25/24 13:15) Medication List - Last Reconciled 07/25/24 by Millie Culp PA-C acamprosate 666 mg (2 x 333 mg) PO TID 30 days apixaban (Eliquis) 5 mg PO BID blood pressure monitor As directed [Breathalyzer As directed] ketoconazole 2% 1 appl topical DAILY levetiracetam 1,500 mg PO BID methadone 40 mg PO DAILY thiamine HCl (vitamin B1) 100 mg PO DAILY triamcinolone acetonide 0.1% 1 appl topical DAILY Tobacco use date assessed: 07/25/24 Dental Screening Dental Screen Date: 03/31/24 HPI lung problem HPI Details 38-year-old male with past medical histo ry of alcohol use disorder, liver cirrhosis secondary to alcohol use disorder, opiate dependency and history of brain abscess last seen 06/2024 by AICHA coming in for acute problem. Presenting with difficulty registering on a breathalyzer at a methadone clinic for the past 11 days, despite repeated attempts with varying levels of pressure. Breathalyzer tests have been routine for a year; issues not encountered until recently. Reports increased cough with finnegan phlegm production, attributing previous instances to smoking rolled tobacco and possible seasonal allergies. Describes phlegm production similar to past episodes associated with smoking habits. PFSH Medical History Drug abuse, IV Hepatitis C Ascites Septic pulmonary embolism Cirrhosis MRSA bacteremia Hematoma and contusion Ascites IV drug user Surgical History (Updated 07/25/24 @ 13:20 by SARA Martino) History of tooth extraction Hx of removal of cyst History of esophagogastroduodenoscopy (EGD) No pertinent past surgical history Family History (Updated 07/25/24 @ 13:20 by SARA Martino) Other Mental health disorder Substance use disorder Social History Household Members: None and Other Housing: Homeless Do you presently have visiting nurse or other home services: No Alcohol intake: current Alcohol intake frequency: 0-2 drinks per day Alcohol type: beer Comment: refuses high fall risk measures Patient Tobacco Use Status: Current everyday Tobacco user Tobacco use type: Cigarette Cigarette Packs Per Day: 0.25 Cigarettes Per Day: 4 e-Cigarette/Vaping Use: Never Used Second Hand Smoke Exposure: Yes Substance Use Type: Crack/Cocaine, Heroin and Marijuana Advance Directives Date on File: 01/15/22 service: No Current occupational status: unemployed and disabled Cognitive needs: No Hearing needs: No Vision needs: No Questionnaire PHQ-9 Over the last 2 weeks, how often have you been bothered by any of the following problems? 1. Little interest or pleasure in doing things: nearly every day 2. Feeling down, depressed, or hopeless: more than half the days 3. Trouble falling or staying asleep, or sleeping too much: more than half the days 4. Feeling tired or having little energy: more than half the days 5. Poor appetite or overeating: more than half the days 6. Feeling bad about yourself - or that you are a failure or have let yourself or your family down: more than half the days 7. Trouble concentrating on things, such as reading the newspaper or watching television: more than half the days 8. Moving or speaking so slowly that other people could have noticed. Or the opposite - being so fidgety or restless that you have been moving around a lot more than usual: not at all 9. Thoughts that you would be better off or of hurting yourself in some way: not at all Total score: 15 Depression Screening Interpretation: Positive Depression Screening Done: Yes Source: Developed by Drs. Gopal Harp, Emanuel Doshi and colleagues, with an educational soham from [employer]. Thrive Questionnaire Date Thrive assessed: 07/25/24 I am a: Patient PETE-7 AMB Questionnaire PETE-7 Date PETE - 7 assessed: 03/31/24 Source: Developed by Drs. oGpal Harp, Emanuel Doshi and colleagues, with an educational soham from [employer]. Review of Systems Const Denies body aches, Denies chills, Denies fever(s), Denies headache(s) and Denies poor appetite Eyes Reports no additional complaints ENT Denies dizziness and Denies headache(s) Card Denies chest pain, Denies lightheadedness and Denies dyspnea Resp Reports change in phlegm color, Reports cough (productive) and Denies dyspnea GI Denies nausea and Denies vomiting Reports no additional complaints Musc Reports no additional complaints and Denies abnormal gait Skin/Breast Reports system reviewed and no additional complaints, except as documented Neuro Denies abnormal gait, Denies dizziness and Denies headache(s) Psych Reports no additional complaints Physical exam (Primary Care) Vital Signs: Last Vital Signs Temp 97.1 F 07/25/24 13:15 Pulse 72 07/25/24 13:15 BP 110/70 07/25/24 13:15 Pulse Ox 97 07/25/24 13:15 Oxygen Delivery Method Room Air 07/25/24 13:15 BMI result Body Mass Index 25.5 Tobacco/Smoking Status: Tobacco use Status Tobacco use date assessed 07/25/24 07/25/24 13:21 Patient Tobacco Use Status Current everyday Tobacco 07/25/24 13:21 Tobacco use type Cigarette 07/25/24 13:21 e-Cigarette/Vaping Use Never Used 07/25/24 13:21 PHQ-9: PHQ-9 Score PHQ-9: Total score 15 07/25/24 13:22 Depression Screening Interpretation: Positive Thrive Assessment: Date of Thrive Assessment Date Thrive assessed 07/25/24 07/25/24 13:21 Const General: cooperative, healthy appearing, comfortable and no acute distress Orientation/consciousness: patient oriented x3 HENWI Head: Yes normocephalic Ears: hearing grossly normal bilaterally General nose exam: Normal external nose present Eyes General: appearance normal, both eyes and all related structures Conjunctivae: conjunctivae normal Neck Neck: Yes full ROM and Yes no lymphadenopathy Resp Effort & Inspection: normal respiratory effort Auscultation: clear to auscultation bilaterally, no crackles, no rales, no rhonchi and no wheezes Cardio Rate: regular rate Rhythm: regular rhythm Skin General skin exam: no rashes or lesions noted Neuro General: patient oriented x3 Gait exam (Neuro): Normal gait present Extrem General: Yes normal to inspection, Yes full ROM and No edema Psych Affect: normal affect Attitude: cooperative Insight: Good insight present (Psych) Judgement: Good judgement present (Psych) Coding Level of Care Code Est Pt Level 3 (16919) Diagnoses Cough R05.9 Primary hypertension I10 Hypertension type: primary hypertension Assessment & Plan Assessment & Plan (1) Cough: Code(s): R05.9 - Cough, unspecified Category: Medical Plan: I will conduct a chest X-ray today to investigate the patient's difficulties with breathalyzer registration, and follow up with pulmonary testing if needed. Mucinex will be administered for phlegm, and an allergy pill for symptom relief. A note will confirm the ongoing workup to the methadone clinic. Conversations regarding smoking cessation, especially tobacco, are underway to improve pulmonary symptoms. (2) HTN (hypertension): Code(s): I10 - Essential (primary) hypertension Category: Medical Qualifiers: Hypertension type: primary hypertension Qualified Code(s): I10 - Essential (primary) hypertension Plan: Continue on current blood pressure medication. Avoid salt intake and encourage healthy diet and regular exercise. New blood pressure kit faxed to pharmacy. Plan This note was constructed using voice recognition software. While every effort has been made to ensure accuracy and ring conductor, still areas may have been included sometimes these areas may affect the content or meeting of the given symptoms. Total time spent caring for the patient today was 20 minutes. This includes time spent before the visit reviewing the chart, time spent during the visit, and time spent after the visit and documentation. Patient was informed and verbally consented to the use of an ambient scribe for clinic note documentation during this visit. Orders: Orders XR chest 2V Today J40 - Bronchitis, not specified as acute or chronic Medications: New guaifenesin ER (Mucinex) 600 mg PO Q12H PRN 20 tabs 0RF congestion cetirizine (All Day Allergy (cetirizine)) 10 mg PO DAILY 30 tabs 0RF allergy symptoms blood pressure test kit-large As directed; to monitor blood pressure daily 1 ea 0RF I10 - Essential (primary) hypertension
[2024-07-25 13:15] VITALS: BP 110/70; PULSE 72; TEMP 36.2; O2SAT 97; BMI 25.5
--- OUTSIDE RECORDS SUMMARY | 2024-07-25 14:17 | XMS_ITS | Patient Health Record ---
Author Organization [facility] Address [address] [place] [address] Care Team Providers Care Telephone Operator Receptionist Name Role Phone Kelsey INFANTE, Alberto Primary [...] W/U Status Risk Notes Problem Alcoholic cirrhosis (840390413) Alcoholic cirrhosis of liver with ascites (K70.31) Active confirmed Problem [id number] Chronic hepatitis C without hepatic coma (B18.2) Active confirmed Problem Chronic hepatitis C (B18.2) Active confirmed Problem [id number] Alcohol abuse (F10.10) Active confirmed Plan Of Treatment No Information Insurance Providers Payer Name Payer Address Payer Phone Subscriber Number Group Number Insured Name Patient Relationship to Insured Coverage Start Date Coverage End Date [facility] [employer] [facility] [address] [address] [place], [place] [id number] NIGEL NIX Self - patient is the insured MEDICAID OF [facility] [address] [place] [address] [phone] [id number] NIGEL NIX Self - patient is the insured Medical (General) History Medical History History ICD Code Denies MD,DM,CVA,Lung disease,renal dise ase hepatitis C PTSD bipolar disorder anxiety depression alcohol abuse Surgical History Surgery Date(Month/Year) right wrist surgery-metal rods and screw s 2012
--- OUTSIDE RECORDS SUMMARY | 2024-07-25 14:17 | XMS_ITS | Clinical Summary ---
Author Organization [facility] it[facility] Address [address] [place] [address] Care Team Providers Care Coating Operator Name Role Phone Unavailable Primary Care [...] Vaccine (2023-2 5 season) 2023 Influenza Vaccine (Season Ended) 2024 HIB Vaccines Aged Out No longer eligi [...] age to complete this topic Meningococcal B Vaccine Aged Out No l onger eligible based on patient's age to complete [...]
--- OUTSIDE RECORDS SUMMARY | 2024-07-25 14:17 | XMS_ITS | Clinical Summary ---
Author Organization [employer] Address [address] [place] [address] [address] [place] [address] Care Team Providers Care Draw Furnace Tender Name Role Phone Unavailable Primary Care Provider Unavailabl e Immunizations Immunization Administration Dates Next Due Moderna Covid-19 Vaccine [...] 1983 Lipid Panel 1983 SDOH Screening 1983 Disability Screening 1983 Alcohol/Substance Use Screening 1995 Tobacco [...] patient's age to complete this topic Insurance [address] [address] [employer]
== END 2024-07-25 13:51 | disposition home or self-care (01) ==
LOC: HO.HMCH 13:13
PROVIDERS: PCP Physician Assistant
DX: R05.9 Cough, unspecified (principal); I10 Essential (primary) hypertension

== ENCOUNTER 2024-07-25 13:12 | Outpatient (REF) | payer OTHER, SELFPAY ==
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
--- OUTSIDE RECORDS SUMMARY | 2024-07-25 15:19 | XMS_ITS | Clinical Summary ---
Author Organization [facility] it[facility] Address [address] [place] [address] Care Team Providers Care Wrong Address Clerk Name Role Phone Unavailable Primary Care Provider [...]
--- OUTSIDE RECORDS SUMMARY | 2024-07-25 15:19 | XMS_ITS | Clinical Summary ---
Author Organization [employer] Address [address] [place] [address] [address] [place] [address] Care Team Providers Care Slide Forming Machine Operator Name Role Phone Unavailable Primary Care [...] patient's age to complete this topic Insurance [place] [address] [employer]
== END 2024-07-25 13:13 | disposition home or self-care (01) ==
LOC: HO.XRAY 13:12
PROVIDERS: PCP Physician Assistant
DX: J40 Bronchitis, not specified as acute or chronic (principal)
CPT/HCPCS: 71046; 99212

== ENCOUNTER → 2024-07-25 14:01 | Outpatient (BNV) | payer OTHER, SELFPAY | PROVIDERS: PCP Physician Assistant; Visit Provider Radiology Diagnostic Radiology | DX: J40 Bronchitis, not specified as acute or chronic (principal) | CPT/HCPCS: 71046 ==

== ENCOUNTER 2024-08-04 13:30 | Outpatient (REF) | payer OTHER, SELFPAY ==
--- NOTE | ~2024-08-04 | US_ITS ---
EXAMINATION: US ABDOMEN LIMITED WITH LIVER ELASTOGRAPHY HISTORY: K75.81 - Nonalcoholic steatohepatitis (MERA) TECHNIQUE: Real-time grayscale ultrasound imaging of the right upper quadrant was performed and images were reviewed. COMPARISON: Comparison is made with the prior examination dated 08/04/2023. FINDINGS: Liver: The right lobe of the liver measures 16.6 cm in size. The left lobe of the liver measures 12.5 cm in size. The liver demonstrates heterogeneously increased echotexture, consistent with steatosis. The liver demonstrates a nodular contour, suggestive of cirrhosis. No focal mass or intrahepatic biliary ductal dilatation is identified. There is normal hepatopedal flow in the portal vein. Ultrasound elastography of the liver was performed with 10 separate measurements of the liver parenchyma with the patient in the supine position. Measurements were obtained approximately 2 cm below Donovan's capsule and perpendicular to the capsule. Images are of satisfactory quality. The median shear wave velocity is 1.97 m/s (previously 2.38 m/s). The interquartile range/median (IQR/median) is 0.04. Gallbladder and biliary tree: The gallbladder is unremarkable, without evidence of calculi, wall thickening, or pericholecystic fluid. There is no sonographic Rae sign. The common bile duct is dilated, measuring 13 mm, although this is unchanged. Right Kidney: The right kidney measures 11.9 cm in length. The right kidney is unremarkable, without evidence of masses, hydronephrosis, or calculi. Pancreas: The pancreatic head, neck, and body are unremarkable. The pancreatic tail is obscured by bowel gas. Abdominal aorta and inferior vena cava: The visualized portions of the abdominal aorta and inferior vena cava are normal in caliber. There is no free fluid in the right upper quadrant. US/US abdomen chavez w elastography IMPRESSION: Hepatomegaly with findings of steatosis and cirrhosis. The median shear wave velocity in the liver is 1.97 m/s, corresponding to a median liver stiffness of 12.10 kPa. The IQR/median value is 0.04. This is indicative of a quality data set. Findings are indicative of a high elastography value suggestive of compensated advanced chronic liver disease. There has been a significant decrease in liver stiffness since the prior study, however. REFERENCE: Society of Radiologists in Ultrasound Liver Stiffness Thresholds (2020): LIVER STIFFNESS THRESHOLDS: *Shear wave velocity less than 1.3 m/s (Liver Stiffness equal or less than 5 kPa): High probability of being normal. *Shear wave velocity less than 1.7 m/s (Liver Stiffness less than 9 kPa): In the absence of other known clinical signs, rules out compensated advanced chronic liver disease. *Shear wave velocity between 1.7-2.1 m/s (Liver Stiffness 9-13 kPa): Suggestive of compensated advanced chronic liver disease but need further test for confirmation. *Shear wave velocity between 2.1-2.4 m/s (Liver Stiffness 13-17 kPa): Rules in compensated advanced chronic liver disease. *Shear wave velocity greater than 2.4 m/s (Liver Stiffness over 17 kPa): Suggestive of clinically significant portal hypertension. QUALITY OF DATA SET: SIGNIFICANT CHANGE FROM PRIOR EXAM: Significant change if liver stiffness measurement is 10% or greater from prior exam. OTHER CONSIDERATIONS: The stage of liver fibrosis may be overestimated in the setting of acute hepatitis, liver inflammation, elevated liver function tests, hepatic vascular congestion, obstructive cholestasis, non-fasting state, and infiltrative diseases such as amyloidosis and lymphoma. In some patients with NAFLD, the liver stiffness thresholds for compensated advanced chronic liver disease may be lower. In causes other than viral hepatitis and NAFLD, liver stiffness thresholds are not well established. Electronically signed by: Gopal Carias MD 08/04/2024 02:34 PM EDT
--- OUTSIDE RECORDS SUMMARY | 2024-08-04 13:42 | XMS_ITS | Clinical Summary ---
Author Organization [facility] ity Address [address] [place] [address] Care Team Providers Care Assistant Broker Name Role Phone Unavailable Primary Care Provider [...]
== END 2024-08-04 13:31 | disposition home or self-care (01) ==
LOC: HO.US 13:30
PROVIDERS: PCP Physician Assistant; Visit Provider Internal Medicine Gastroenterology
DX: K74.60 Unspecified cirrhosis of liver (principal); K75.81 Nonalcoholic steatohepatitis (NASH)
CPT/HCPCS: 76705; 76981

== ENCOUNTER → 2024-08-04 13:31 | Outpatient (BNV) | payer OTHER, SELFPAY | PROVIDERS: PCP Physician Assistant; Visit Provider Radiology Diagnostic Radiology | DX: K76.0 Fatty (change of) liver, not elsewhere classified (principal); K74.60 Unspecified cirrhosis of liver; R16.0 Hepatomegaly, not elsewhere classified | CPT/HCPCS: 76705; 76981 ==

== ENCOUNTER → 2024-08-16 18:31 | Outpatient (BNV) | payer OTHER, SELFPAY | PROVIDERS: PCP Physician Assistant; Visit Provider Radiology Diagnostic Radiology | DX: G06.0 Intracranial abscess and granuloma (principal) | CPT/HCPCS: 70551 ==

== ENCOUNTER 2024-08-16 19:05 | Outpatient (REF) | payer OTHER, SELFPAY ==
--- NOTE | ~2024-08-16 | MR_ITS ---
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 Right parietal convexity postsurgical changes with old hemorrhagic products. Small number of tiny cerebral hemispheric white matter FLAIR hyperintense foci as before are an insignificant finding. No intra-axial mass or acute hemorrhage. No midline shift. No hydrocephalus. Vascular flow voids are intact. The orbits are normal. A few bilateral maxillary sinus polyps/retention cysts. No focal bone lesion. IMPRESSION: Postsurgical right parietal convexity changes. Otherwise unremarkable exam. This document has been electronically signed by: Jennifer Ceballos MD on 08/17/2024 13:16:04
== END 2024-08-16 19:06 | disposition home or self-care (01) ==
LOC: HO.MRI 19:05
PROVIDERS: PCP Physician Assistant; Visit Provider Physician Assistant
DX: G06.0 Intracranial abscess and granuloma (principal); Z98.890 Other specified postprocedural states
CPT/HCPCS: 70551

== ENCOUNTER → 2024-08-17 15:11 | Outpatient (BNVA) | payer OTHER, SELFPAY | PROVIDERS: PCP Physician Assistant; Visit Provider Internal Medicine Pulmonary Disease ==

== ENCOUNTER 2024-11-15 14:18 | Outpatient (AMB) | payer OTHER, SELFPAY ==
[2024-11-15 14:22] VITALS: BP 146/88; PULSE 73; RESP 18; TEMP 36.3; O2SAT 94; BMI 24.7
--- NOTE | 2024-11-15 14:22 | MHC.PC.OV ---
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 Required: No Accompanied by: Healthcare Proxy Allergies No Known Allergies (No Known Allergies*) Allergy (Verified 11/15/24 14:30) Medication List - Last Reconciled 11/15/24 by Dylon Pascal PA-C acamprosate 666 mg (2 x 333 mg) PO TID 30 days albuterol sulfate 90 mcg/actuation 1 inh inhalation QID apixaban (Eliquis) 5 mg PO BID blood pressure monitor As directed blood pressure test kit-large As directed; to monitor blood pressure daily [Breathalyzer As directed] cetirizine (All Day Allergy (cetirizine)) 10 mg PO DAILY guaifenesin ER (Mucinex) 600 mg PO Q12H PRN ketoconazole 2% 1 appl topical DAILY levetiracetam 1,500 mg PO BID methadone 40 mg PO DAILY thiamine HCl (vitamin B1) 100 mg PO DAILY triamcinolone acetonide 0.1% 1 appl topical DAILY Tobacco use date assessed: 11/15/24 Dental Screening Dental Screen Date: 11/15/24 Did you have a dental visit in the last 12 months?: Yes Did you have a dental problem in the last 6 months where you did not have access to dental care?: No Was dental information given to patient?: Patient has dentist HPI f/u cirrhosis HPI Details Patient is a 39-year-old male here today for a follow-up visit Patient has a past medical history significant for alcohol use disorder, liver cirrhosis secondary to alcohol use disorder, opiate dependency, history of a brain abscess s/p surgery cause epilepsy. HISTORY OF LIVER CIRRHOSIS: He also has a complex history of liver disease, previously deemed end-stage, necessitating hospice care and frequent fluid removal. This presumed terminal liver disease required him to choose closer proximity to family over continued hospice care, despite the critical nature of his condition. He narrates a significant recovery journey, highlighting the unexpected improvement in his liver condition despite the terminal diagnosis. His anticoagulation therapy with Eliquis is due to blood clots identified by imaging during extensive hospitalization. These were linked to both his extended immobility and liver condition but persist post-diagnosis. The need for continued anticoagulation is under review, with potential for hematology consultation pending a reassessment. Alcohol use disorder: He drinks alcohol regularly, amounting to about 11 beers a day to manage anxiety, depression, and boredom. While he does not suffer withdrawal, he finds it challenging to reduce intake due to established dependencies. His methadone regimen, initiated after a high-dose opiate regimen in hospice, is currently undergoing a taper. OPIATE DEPENDENCY: The patient has been struggling with opiate use disorder, primarily using methadone for pain maintenance. He reports that the daily visits to the methadone clinic are affecting his sobriety due to strict dosing schedules and breathalyzer requirements. He has attempted to taper off methadone but experienced increased pain, leading to a temporary increase in dosage. -->He reports chronic pain affecting his sleep, with pain localized to his liver, spleen, and ribs. The pain is exacerbated by physical activity and affects his ability to perform daily tasks. [facility] Medical History Drug abuse, IV Hepatitis C Ascites Septic pulmonary embolism Cirrhosis MRSA bacteremia Hematoma and contusion Ascites IV drug user Surgical History History of tooth extraction Hx of removal of cyst History of esophagogastroduodenoscopy (EGD) No pertinent past surgical history Family History Other Mental health disorder Substance use disorder Social History Household Members: None and Other Housing: Homeless Do you presently have visiting nurse or other home services: No Alcohol intake: current Alcohol intake frequency: 0-2 drinks per day Alcohol type: beer Comment: refuses high fall risk measures Patient Tobacco Use Status: Current everyday Tobacco user Tobacco use type: Cigarette Cigarette Packs Per Day: 0.25 Cigarettes Per Day: 4 e-Cigarette/Vaping Use: Never Used Second Hand Smoke Exposure: Yes Substance Use Type: Crack/Cocaine, Heroin and Marijuana Advance Directives Date on File: 01/15/22 service: No Current occupational status: unemployed and disabled Cognitive needs: No Hearing needs: No Vision needs: No Questionnaire PHQ-9 Over the last 2 weeks, how often have you been bothered by any of the following problems? 1. Little interest or pleasure in doing things: nearly every day 2. Feeling down, depressed, or hopeless: more than half the days 3. Trouble falling or staying asleep, or sleeping too much: more than half the days 4. Feeling tired or having little energy: more than half the days 5. Poor appetite or overeating: more than half the days 6. Feeling bad about yourself - or that you are a failure or have let yourself or your family down: more than half the days 7. Trouble concentrating on things, such as reading the newspaper or watching television: more than half the days 8. Moving or speaking so slowly that other people could have noticed. Or the opposite - being so fidgety or restless that you have been moving around a lot more than usual: not at all 9. Thoughts that you would be better off or of hurting yourself in some way: not at all Total score: 15 Depression Screening Interpretation: Positive Depression Screening Follow-up: Existing condition and In treatment Depression Screening Done: Yes 83928 - PHQ-9 Billing: Yes Source: Developed by Drs. Gopal Harp, Nahed Perez, Emanuel Kaufman and colleagues, with an educational soham from [employer]. Thrive Questionnaire Date Thrive assessed: 11/15/24 I am a: Patient AUDIT C Alcohol Use Questionnaire (AUDIT-C) 1. How often do you have a drink containing alcohol?: 4 or more times a week 2. How many drinks containing alcohol do you have on a typical day when you are drinking?: 10 or more (Just beers) 3. How often do you have six or more drinks on one occasion?: Daily or almost daily Total Score: 12 PETE-7 AMB Questionnaire PETE-7 Date PETE - 7 assessed: 11/15/24 Feeling nervous, anxious, or on edge: 3 = Nearly every day Not being able to stop or control worryin = Nearly every day Worrying too much about different things: 3 = Nearly every day Trouble relaxin = Nearly every day Being so restless that it is hard to sit still: 3 = Nearly every day Becoming easily annoyed or irritable: 3 = Nearly every day Feeling afraid as if something awful might happen: 3 = Nearly every day Total PETE-7 score (0-4 normal; 5-9 mild; 10-14 moderate; 15-21 severe): 21 Source: Developed by Drs. Gopal Harp, Nahed Perez, Emanuel Kaufman and colleagues, with an educational soham from [employer]. PETE-7 Assessment Billing PETE-7 Assessment Tool: PETE-7 Assessment 49927 Review of Systems Const Denies headache(s) Eyes Denies loss of vision ENT Denies vertigo, Denies dizziness, Denies headache(s) and Denies sore throat Card Denies chest pain, Denies leg edema and Denies lightheadedness Resp Denies cough, Denies hemoptysis and Denies wheezing GI Denies abdominal pain, Denies melena, Denies constipation, Denies diarrhea and Denies vomiting Denies dysuria, Denies urinary frequency and Denies urinary urgency Musc Denies arthralgias, Denies joint swelling, Denies numbness and Denies tingling Neuro Denies Abnormal speech present, Denies behavioral changes, Denies vertigo, Denies dizziness, Denies headache(s), Denies loss of vision, Denies memory loss, Denies numbness and Denies tingling Psych Denies anxiety, Denies behavioral changes, Denies depression, Denies memory loss and Denies panic attacks Cole/Lymph Denies easy bleeding and Denies easy bruising Aller/Immun Denies wheezing Physical exam (Primary Care) Vital Signs: Last Vital Signs Temp 97.3 F 11/15/24 14:22 Pulse 73 11/15/24 14:22 Resp 18 11/15/24 14:22 BP 146/88 H 11/15/24 14:22 Pulse Ox 94 11/15/24 14:22 Oxygen Delivery Method Room Air 11/15/24 14:22 BMI result Body Mass Index 24.7 Tobacco/Smoking Status: Tobacco use Status Tobacco use date assessed 11/15/24 11/15/24 14:29 Patient Tobacco Use Status Current everyday Tobacco 11/15/24 14:29 Tobacco use type Cigarette 11/15/24 14:29 e-Cigarette/Vaping Use Never Used 11/15/24 14:29 PHQ-9: PHQ-9 Score PHQ-9: Total score 15 11/15/24 14:31 Depression Screening Interpretation: Positive Depression Screening Follow-up: Existing condition and In treatment Thrive Assessment: Date of Thrive Assessment Date Thrive assessed 11/15/24 11/15/24 14:29 Const General: healthy appearing, no acute distress, alert and awake Nutritional Appearance: well nourished Orientation/consciousness: oriented to person, oriented to place and oriented to time HENMT Ears: TM's normal bilaterally General nose exam: Normal nasal mucous membranes and turbinates present Eyes Conjunctivae: conjunctivae normal Sclerae: sclerae normal Pupils: Equal, round and reactive pupils present Neck Neck: Yes no lymphadenopathy and Yes no JVD Thyroid: Thyroid normal Carotids: no bruits Resp Effort & Inspection: normal respiratory effort and not tachypneic Auscultation: no crackles, no rales, no rhonchi and no wheezes Cardio Rate: regular rate Rhythm: regular rhythm Heart sounds: no murmurs and normal S1 and S2 GI Palpation (GI): Soft to palpation, nontender, no hepatomegaly and no splenomegaly Auscultation: normal bowel sounds Skin General skin exam: no rashes or lesions noted and dry skin Neuro General: oriented to person, oriented to place and oriented to time Cranial nerves: Yes Equal, round and reactive pupils present Speech: No Abnormal speech present Gait exam (Neuro): Normal gait present Motor exam (neuro): no tremor noted Extrem Right upper extremity: full ROM Left upper extremity: full ROM Right lower extremity: full ROM; no edema Left lower extremity: full ROM; no edema Psych Mental Status: mental status grossly normal Speech and movement: Normal speech and movement present Affect: normal affect Attitude: cooperative Thought process: Normal thought process present Coding Level of Care Code Est Pt Level 4 (23073) Diagnoses Opioid dependence in remission F11.21 Substance use status: in remission Nonintractable epilepsy without status epilepticus, unspecified epilepsy type G40.909 Epilepsy type: unspecified Intractability: not intractable Status epilepticus: without status epilepticus 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 Z79.01 Alcohol abuse F10.10 Alcoholic cirrhosis of liver with ascites K70.31 Ascites presence: with ascites Hepatic cirrhosis type: alcoholic cirrhosis Primary insomnia F51.01 Insomnia type: primary 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 Acne rosacea L71.9 MDD (major depressive disorder), recurrent episode, moderate F33.1 Additional Codes PETE-7 Assessment Billing - PETE-7 Assessment Tool: PETE-7 Assessment 71429 ([id number]) PHQ-9 - 59563 - PHQ-9 Billing: Yes ([id number]) Assessment & Plan Assessment & Plan (1) Opioid dependence: Code(s): F11.20 - Opioid dependence, uncomplicated Category: Medical Qualifiers: Substance use status: in remission Qualified Code(s): F11.21 - Opioid dependence, in remission Plan: The patient is currently on methadone maintenance therapy but is experiencing challenges with the clinic's strict dosing schedule and breathalyzer requirements, which are affecting his sobriety. A potential switch to Suboxone was discussed, but the transition from methadone to Suboxone is complicated by withdrawal symptoms. The patient is advised to consider finding a different methadone clinic that may offer more flexibility. (2) Epilepsy: Code(s): G40.909 - Epilepsy, unspecified, not intractable, without status epilepticus Category: Medical Qualifiers: Epilepsy type: unspecified Intractability: not intractable Status epilepticus: without status epilepticus Qualified Code(s): G40.909 - Epilepsy, unspecified, not intractable, without status epilepticus Plan: Patient followed by Neurology. He continues on liver nicotine 1500 b.i.d. for seizure prophylaxis. Did have brain abscess that was treated with a craniotomy in the right side of his parietal region. 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 He continues on Eliquis 5 mg though unclear if he still needs this medication. Will refer to hematology for evaluation and recommendations on further need of anticoagulation especially with the continued use of alcohol at this time. (4) Alcohol abuse: Code(s): F10.10 - Alcohol abuse, uncomplicated Category: Social Hx Plan: Patient admits to drinking about 10-11 beers per day. He does understand he needs help. Will try a compensate to help him reduce his alcohol cravings in abstain. He denies any withdrawal symptoms when he does not drink. We did discuss the possible need to see addiction treatment center. For now staying away from naltrexone in [facility] due to being on methadone treatment. (5) Liver cirrhosis: Code(s): K74.60 - Unspecified cirrhosis of liver Category: Medical Qualifiers: Ascites presence: with ascites Hepatic cirrhosis type: alcoholic cirrhosis Qualified Code(s): K70.31 - Alcoholic cirrhosis of liver with ascites Plan: End-stage liver disease, followed by [place] [facility] Liver function will continue to be monitored. Alcohol reduction is strongly advised. (6) Insomnia: Code(s): G47.00 - Insomnia, unspecified Category: Medical Qualifiers: Insomnia type: primary Qualified Code(s): F51.01 - Primary insomnia Plan: The patient reports insomnia related to chronic pain, which affects his ability to perform daily activities. Nortriptyline was prescribed to aid with sleep, and the patient is advised to monitor its effects and report any concerns. (7) Methadone maintenance therapy patient: Code(s): F11.20 - Opioid dependence, uncomplicated Category: Medical Plan: ABOVE (8) Acne rosacea: Code(s): L71.9 - Rosacea, unspecified Category: Medical Plan: Will supply patient with Metrogel for acne rosacea (9) MDD (major depressive disorder), recurrent episode, moderate: Code(s): F33.1 - Major depressive disorder, recurrent, moderate Category: Medical Plan: Patient's PHQ-9 score positive for depression which has been existing condition for him. He goes to a methadone clinic to which has a counselor. We will start nortriptyline to help him both with his sleep mental health and pain. Medications: New nortriptyline 10 mg PO BEDTIME 30 caps 1RF 30 days F51.01 - Primary insomnia cyclobenzaprine 10 mg PO BID 30 tabs 1RF 15 days F51.01 - Primary insomnia metronidazole 1% (Metrogel) 1 appl topical DAILY 60 grams 1RF 4 weeks L71.9 - Rosacea, unspecified
--- OUTSIDE RECORDS SUMMARY | 2024-11-15 17:36 | XMS_ITS | Patient Health Record ---
Author Organization [facility] Address [address] [place] [address] Care Team Providers Care Director Of Consumer Marketing Name Role Phone Kelsey INFANTE, Alberto Primary Care Provider Enoch Egan Jr Unavailable [phone] Reason For Referral No Information Medications Medication [...] W/U Status Risk Notes Problem Alcoholic cirrhosis ([id number]) Alcoholic cirrhosis of liver with ascites (K70.31) Active confirmed Problem 442958329 Chronic hepatitis C without hepatic coma (B18.2) Active confirmed Problem Chronic hepatitis C (241699279) Chronic hepatitis C (B18.2) Active confirmed Problem [id number] Alcohol abuse (F10.10) Active confirmed Plan Of Treatment No Information Insurance Providers Payer Name Payer Address Payer Phone Subscriber Number Group Number Insured Name Patient Relationship to Insured Coverage Start Date Coverage End Date [facility] [address] [address] [place], [place] [id number] [phone] [id number] NIGEL NIX Self - patient is the insured MEDICAID OF [facility] [address] [place] [address] [id number] NIGEL NIX Self - patient is the insured Medical (General) History Medical History History ICD Code Denies ME,DM,CVA,Lung disease,renal dise ase hepatitis C PTSD bipolar disorder anxiety depression alcohol abuse Surgical History Surgery Date(Month/Year) right wrist surgery-metal rods and screw s 2012
== END 2024-11-15 15:16 | disposition home or self-care (01) ==
LOC: HO.HMCH 14:18
PROVIDERS: PCP Physician Assistant; Visit Provider Physician Assistant
DX: G40.909 Epilepsy, unspecified, not intractable, without status epilepticus (principal); F11.21 Opioid dependence, in remission; K70.31 Alcoholic cirrhosis of liver with ascites; F11.20 Opioid dependence, uncomplicated; F33.1 Major depressive disorder, recurrent, moderate; Z79.01 Long term (current) use of anticoagulants; F10.10 Alcohol abuse, uncomplicated; F51.01 Primary insomnia; L71.9 Rosacea, unspecified

== ENCOUNTER → 2024-11-15 14:18 | Outpatient (BNVA) | payer OTHER, SELFPAY | PROVIDERS: PCP Physician Assistant; Visit Provider Physician Assistant | DX: K70.31 Alcoholic cirrhosis of liver with ascites (principal); G40.909 Epilepsy, unspecified, not intractable, without status epilepticus; F10.10 Alcohol abuse, uncomplicated; F51.01 Primary insomnia; L71.9 Rosacea, unspecified; F33.1 Major depressive disorder, recurrent, moderate; F11.21 Opioid dependence, in remission; Z79.01 Long term (current) use of anticoagulants; Z13.31 Encounter for screening for depression; Z13.39 Encounter for screening examination for other mental health and behavioral disorders | CPT/HCPCS: 96127; 99212 ==